=== PATIENT | female | born 1955 | race Caucasian/White ===

== ENCOUNTER 2022-05-21 14:38 | Inpatient (IN) ==
--- NOTE | 2022-05-21 16:57 | XRay Report ---
XR chest 1V not portable CLINICAL HISTORY: Dyspnea TECHNIQUE: Single frontal radiograph of the chest was obtained. Comparison: Comparison is made to chest radiograph 01/29/2022 FINDINGS: No lines and tubes are seen. The cardiomediastinal silhouette is normal. The lungs are clear. No evid ence of pleural effusion or pneumothorax. IMPRESSION: No acute abnormalities and in particular no radiographic evidence of pneumonia. ACT 112: Negative or not required by law. Electronically signed by: Nico Denis M.D. 05/21/2022 4:56 PM
[2022-05-21 17:31] LABS: Basophils # (auto) 0.03 K/uL (0-0.2); Basophils % (auto) 0.6 %; Eosinophils # (auto) 0.02 K/uL (0-0.50); Eosinophils % (auto) 0.4 %; Hematocrit (blood only) 39.6 % (37.0-47.0); Hemoglobin 13.1 g/dl (12.0-16.0); Immature Granulocytes # (auto) 0.01 K/uL (0.01-0.20); Immature Granulocytes % (auto) 0.2 %; Lymphocytes # (auto) 1.14 K/uL (1.2-3.4); Lymphocytes % (auto) 22.3 %; Mean Corpuscular Hemoglobin 34.7 pg (25.0-34.0); Mean Corpuscular Hgb Conc 33.1 g/dL (32.0-36.0); Mean Corpuscular Volume 104.8 fL (80.0-100.0); Mean Platelet Volume 10.1 fL (9.4-12.4); Monocytes # (auto) 0.48 K/uL (0.11-0.59); Monocytes % (auto) 9.4 %; Neutrophils # (auto) 3.44 K/uL (1.40-6.50); Neutrophils % (auto) 67.1 %; Platelet Count 225 K/uL (130-400); RDW Standard Deviation 54.7 fL (36.4-46.3); Red Blood Count 3.78 M/uL (4.20-5.40); White Blood Count 5.12 K/ul (4.8-10.8)
[2022-05-21 17:37] LABS: Albumin Globulin Ratio 0.9 (0.9-2); Albumin Level 3.1 gm/dl (3.4-5.0); BUN Creatinine Ratio 20.5 (10-20); Calcium 8.4 mg/dl (8.6-10.3); Creatinine Clr Calc Pharmacy 151.1 ml/min; Est GFR (African American) 125.1 ml/min; Est GFR (Non-African American) 107.9 ml/min; Globulin 3.6 gm/dl (2.5-4.0); Potassium 3.5 mmol/L (3.5-5.1); Total Protein 6.7 gm/dl (6.0-8.3)
[2022-05-21 17:43] LABS: Troponin I High Sensitivity 6.8 pg/ml (0-14)
[2022-05-21 17:52] LABS: Influenza A virus by PCR Negative (Neg); Influenza B virus by PCR Negative (Neg); RSV by PCR Negative (Neg); SARS CoV2 RNA(COVID-19) Ceph NEGATIVE (Negative)
[2022-05-21] MEDS ORDERED: ALBUT/IPRATROP 3MG/0.5MG NEB 3 ML VIAL NEB STA (18:50)
--- NOTE | 2022-05-21 18:59 | Emergency Department Note ---
Impression & Plan Acute bronchitis, Acute respiratory distress, Hypoxia, MONTES (dyspnea on exertion) ED Provider Note NAME: LJ AGUSTIN AGE: 67 SEX: F : 1955 ARRIVES VIA: Walk-In INFORMANT: Patient, ED PROVIDER(S): Parmjit Gao DO CHIEF COMPLAINT: Shortness of breath HPI: The patient is a 67-year-old female who presented to the emergency department for an evaluation of shortness of breath. The patient's noticed ongoing worsening shortness of breath over the course of the last week. She does notice a sore throat as well as difficulty lying flat at night. She denies having any hemoptysis. She denies having any lower extremity swelling but did note some lower extremity cramping. She was scheduled for Dopplers of her legs by her family doctor but has not had a chance to have those test done yet. ROS: See above HPI for pertinent positives & negatives. A total of 10 systems reviewed and were otherwise negative. PAST MEDICAL HISTORY: See Below PAST SURGICAL HISTORY: See Below FAMILY HISTORY: See Below SOCIAL HISTORY: See Below HOME MEDICATIONS: See Below ALLERGIES: See Below VITALS: See Below PHYSICAL EXAMINATION: GENERAL: Patient is awake alert in no acute distress patient is resting comfortably and showing no signs of anxiety EYES: The conjunctivae are clear. The pupils are round and reactive. EARS, NOSE, MOUTH AND THROAT: The nose is without any evidence of any deformity. NECK: The neck is nontender and supple. RESPIRATORY: Diminished breath sounds are noted throughout. Scattered wheezing was noted. There is mild tachypnea as well as conversational dyspnea appreciated. CARDIOVASCULAR: Tachycardic rate with regular rhythm was noted. There is no definite murmur. GASTROINTESTINAL: The abdomen is soft. Abdomen is nontender. MUSCULOSKELETAL/EXTREMITIES: There is no evidence of gross deformity full range of motion is noted in the hips and shoulders. SKIN: There is no obvious evidence of any rash. There are no petechiae, pallor or cyanosis noted. NEUROLOGIC: Patient is awake alert and oriented x3 MEDICAL DECISION MAKING: The patient is a 67-year-old female who presented to the emergency department for an evaluation of difficulty breathing. The patient does have a history of underlying lung diseases as well as scleroderma. The patient presented with shortness of breath. The patient's symptoms have been ongoing for at least the last 24 hours. She also describes some orthopnea but physical exam and radiographic studies do not appear to be consistent with pulmonary edema rather she has had diminished breath sounds as well as wheezing. She was treated with bronchodilators in the emergency department. Steroids were avoided because of the patient's previous past medical history. The patient was also treated with IV antibiotics in the emergency department. Her overall condition does appear to have some degree of hypoxia especially with exertion as well as tachycardia. Because of these findings she also had a CT of the chest obtained. The patient still has significant symptoms especially with exertion. For this reason I discussed her condition with the on-call [facility] hospitalist. I do feel the patient may benefit from inpatient management. Triage Nursing notes reviewed. Prior medical records reviewed Vital Signs: reviewed and remarkable for borderline hypoxia as well as tachycardia. Differential diagnosis: Reactive airway disease, pneumonia, pneumothorax, COPD, CHF, infections, cardiac ischemia, pulmonary embolism, musculoskeletal, gastrointestinal, as well as other pathologies. ER treatment provided: See below Diagnostics interpreted by me: ECG: EKG was obtained in the emergency department. My interpretation is sinus tachycardia at 109 bpm. There is no ectopy. Nonspecific ST segment abnormalities were noted. Inferior Q waves were noted. Low voltage was noted throughout. This was compared to a tracing from February 23, 2019. No changes were noted. Cardiac Monitoring: An order was placed for continuous cardiac monitoring. The monitor shows a rate of 107 bpm with sinus rhythm. Laboratory studies: As stated above and show below. Imaging studies: See below. Radiographic imaging was reviewed by myself Consultation(s): I discussed this case with Dr. Gaona [facility] COURSE: Procedures: none Critical Care: I have personally spent greater than 35 minutes of critical care time in the direct management of this patient. This includes bedside care, interpretation of diagnostic studies, and testing, discussion with consultants, patient, and family members, and other required patient management activities. This 35 minutes is in excess of all separately billable procedures. Past Med/Surg History Medical History Asthma inhalers daily/prn Atrial fibrillation on xarelto follows with Dr. Bustamante Chronic back pain Chronic diarrhea Gastroparesis Hypertension On anticoagulant therapy xarelto daily Osteoarthritis Pulmonary fibrosis Raynaud's syndrome Scleroderma Surgical History History of benign breast biopsy History of bilateral cataract extraction History of cardiac radiofrequency ablation (~10/2020) @ [facility] [place] History of cholecystectomy History of colonoscopy History of dilatation and curettage History of esophagogastroduodenoscopy (EGD) History of gastric bypass [id number]-en-y History of hand surgery finger surgery History of hernia repair History of surgery Mutiple GI procedures for blocked bowel. History of tooth extraction full upper History of total right knee replacement (TKR) Status post fine needle biopsy on thyroid--all benign Family History Father Hearing loss Brother Hearing loss Other Cancer Heart disease Hypertension No family history of adverse response to anesthesia No family history of bleeding disorder Stroke Social History Smoking Status: Never smoker Second Hand Exposure: No; Hx Alcohol Use: No Hx Substance Use: No Preferred Language: Danish Communication Ability: Effective Binder Lockstitch Required: No Beliefs That Will Affect Care: None and Bahai Bahai Beliefs: Buddhist marital status: Single Current Living Situation: Alone current occupational status: retired Feels Safe at Home: Yes Diet Comment: gastroparesis caffeine: Yes Assistive Devices: Cane, Denture - Upper and Glasses Allergies Allergies Allergy/AdvReac Type Severity Reaction Status Date / Time simvastatin [From Zocor] Allergy Intermediate "made me Verified 05/21/22 21:14 pass out" ibuprofen Allergy Mild stomach Verified 05/21/22 21:14 pain naproxen [From Aleve] Allergy Mild STOMACH Verified 05/21/22 21:14 PAIN oxycodone [From Percocet] Allergy Mild stomach Verified 05/21/22 21:14 pain oyster extract AdvReac Gastrointestinal Verified 05/21/22 21:15 Upset scallops AdvReac Gastrointestinal Verified 05/21/22 21:15 Upset Home Meds Home Medications Medication Instructions Recorded Confirmed hydroxychloroquine 200 mg tablet 400 mg PO QPM 02/23/19 05/21/22 rivaroxaban 20 mg tablet (Xarelto) 20 mg PO QPM 02/23/19 05/21/22 vwaoo-d-ohwhlxiycaltb 150 unit 1 tab PO 6XD PRN Gastrointestinal 05/08/19 03/29/22 tablet (Beano) Spasms Or Cramping lactase 3,000 unit tablet 3,000 units PO QID PRN Abdominal 05/08/19 05/21/22 Discomfort multivitamin 1 tab PO QAM 05/08/19 05/21/22 metoprolol succinate 100 mg 100 mg PO QPM 04/25/20 05/21/22 tablet,extended release 24 hr hydrochlorothiazide 12.5 mg tablet 6.25 mg PO QAM 10/28/20 05/21/22 Saccharomyces boulardii 250 mg 250 mg PO QAM 04/28/21 05/21/22 capsule (Digest Probiotic (S.boulardii)) calcium carbonate 500 mg calcium 500 mg PO QAM 04/28/21 05/21/22 (1,250 mg) tablet cetirizine 10 mg capsule (Zyrtec) 10 mg PO QAM 04/28/21 05/21/22 yrenncdz-pfr-LH 200 mcg-vit K 15 1 tab PO QPM 04/28/21 05/21/22 mcg-lycope 150 xwb-ojhgan-fhlx tablet (Ocuvite Eye Plus Multi) omega 8-uwi-tbq-fish oil 1,000 mg 1 cap PO QAM 04/28/21 05/21/22 (120 mg-180 mg) capsule (Fish Oil) omeprazole 40 mg capsule,delayed 40 mg PO QAM 04/28/21 05/21/22 release vitamin B complex-folic acid 50 1 tab PO QPM 04/28/21 05/21/22 mcg tablet mycophenolate mofetil 250 mg 500 mg PO BID 02/15/22 05/21/22 capsule spironolactone 25 mg tablet 25 mg PO DAILY 03/29/22 05/21/22 Previous Rx's Medication Instructions Recorded yezzes-djlxosxd-zwfpgbq 5.82063 cap PO TID #30 caps 11/14/18 6,000-19,000-30,000 unit capsule,delayed rel (Creon) tramadol 37.5 mg-acetaminophen 325 1 tab PO QID PRN pain #30 tabs 11/14/18 mg tablet triamcinolone acetonide 55 mcg 2 sprays intranasal DAILY #33.8 mL 11/14/18 nasal spray aerosol (Nasacort) albuterol sulfate 90 mcg/actuation 1 puff inhalation Q6H PRN 10/28/20 aerosol inhaler (ProAir HFA) shortness of breath or wheezing #8 grams fluticasone propionate 115 2 puff inhalation BID #12 grams 10/28/20 mcg-salmeterol 21 mcg/actuation HFA inhaler (Advair HFA) nintedanib 150 mg capsule (Ofev) 150 mg PO Q12H #180 caps 11/17/21 Results & Data (ED) Vital Signs Vital Signs - 24 hr 05/21/22 15:09 05/21/22 18:37 05/21/22 18:38 Temperature 37.1 C Temperature Source Skin Pulse Rate 106 H 128 H 126 H Pulse Rate [Apical] Respiratory Rate 20 18 Respiratory Effort / Characteristics Non-Labored Spontaneous Respiratory Depth Normal Respiratory Pattern Regular Blood Pressure 145/77 H Blood Pressure [Left Arm] Blood Pressure Mean 99 Blood Pressure Mean [Left Arm] Blood Pressure Position [Left Arm] Pulse Oximetry 92 93 Oxygen Delivery Method Room Air Room Air Oxygen Flow Rate Sepsis Recent Fever Within 48 Hours No Sepsis New/Unexplained Change in Mental Status N/A Sepsis Action Taken by Nursing No Action Required 05/21/22 18:38 05/21/22 19:52 05/21/22 22:05 Temperature Temperature Source Pulse Rate Pulse Rate [Apical] 127 H 107 H Respiratory Rate 18 18 Respiratory Effort / Characteristics Respiratory Depth Respiratory Pattern Blood Pressure Blood Pressure [Left Arm] 145/90 H 130/77 Blood Pressure Mean Blood Pressure Mean [Left Arm] 108 94 Blood Pressure Position [Left Arm] Sitting Pulse Oximetry 92 99 97 Oxygen Delivery Method Room Air Nasal Cannula Nasal Cannula Oxygen Flow Rate 2 2 Sepsis Recent Fever Within 48 Hours Sepsis New/Unexplained Change in Mental Status Sepsis Action Taken by Skilled Nursing Medications Current Medication List: was personally reviewed by me Laboratory Data Attestation: I reviewed the patient's lab results. 05/21/22 17:06 05/21/22 17:06 Lab Results 05/21/22 05/21/22 05/21/22 Range/Units 17:06 17:06 17:06 WBC 5.12 (4.8-10.8) K/ul RBC 3.78 L (4.20-5.40) M/uL Hgb 13.1 (12.0-16.0) g/dl Hct 39.6 (37.0-47.0) % MCV 104.8 H (80.0-100.0) fL MCH 34.7 H (25.0-34.0) pg MCHC 33.1 (32.0-36.0) g/dL RDW Std Deviation 54.7 H (36.4-46.3) fL RDW Coeff of Lorenzo 14.0 (11.5-14.5) % Plt Count 225 (130-400) K/uL MPV 10.1 (9.4-12.4) fL Immature Gran % (Auto) 0.2 % Neut % (Auto) 67.1 % Lymph % (Auto) 22.3 % Brooke % (Auto) 9.4 % Eos % (Auto) 0.4 % Baso % (Auto) 0.6 % Neut # (Auto) 3.44 (1.40-6.50) K/uL Lymph # (Auto) 1.14 L (1.2-3.4) K/uL Brooke # (Auto) 0.48 (0.11-0.59) K/uL Eos # (Auto) 0.02 (0-0.50) K/uL Baso # (Auto) 0.03 (0-0.2) K/uL Immature Gran # (Auto) 0.01 (0.01-0.20) K/uL Sodium 137 (136-145) mmol/L Potassium 3.5 (3.5-5.1) mmol/L Chloride 97 L (98-107) mmol/L Carbon Dioxide 35 H (21-32) mmol/L Anion Gap 5 (3-11) BUN 8 (6-23) mg/dl Creatinine 0.39 L (0.6-1.2) mg/dl Est Cr Clr Drug Dosing 151.1 ml/min Est GFR ( Amer) 125.1 ml/min Est GFR (Non-Af Amer) 107.9 ml/min BUN/Creatinine Ratio 20.5 H (10-20) Glucose 103 H (70-99(Fasting)) mg/dl Calcium 8.4 L (8.6-10.3) mg/dl Total Bilirubin 1.0 (0.2-1.0) mg/dl AST 59 H (13-39) U/L ALT 31 (7-52) U/L Alkaline Phosphatase 115 H (34-104) U/L Troponin I High Sens 6.8 (0-14) pg/ml Total Protein 6.7 (6.0-8.3) gm/dl Albumin 3.1 L (3.4-5.0) gm/dl Globulin 3.6 (2.5-4.0) gm/dl Albumin/Globulin Ratio 0.9 (0.9-2) Urine Color Urine Appearance (Clear) Urine pH (4.5-7.5) Ur Specific Leonard (1.000-1.030) Urine Protein (Negative) Urine Glucose (UA) (Negative) Urine Ketones (Negative) Urine Blood (Negative) Urine Nitrite (Negative) Urine Bilirubin (Negative) Urine Urobilinogen (Negative) Ur Leukocyte Esterase (Negative) SARS-CoV-2 (PCR) NEGATIVE (Negative) Influenza Type A (PCR) Negative (Neg) Influenza Type B (PCR) Negative (Neg) RSV (RT-PCR) Negative (Neg) 05/21/22 Range/Units 21:38 WBC (4.8-10.8) K/ul RBC (4.20-5.40) M/uL Hgb (12.0-16.0) g/dl Hct (37.0-47.0) % MCV (80.0-100.0) fL MCH (25.0-34.0) pg MCHC (32.0-36.0) g/dL RDW Std Deviation (36.4-46.3) fL RDW Coeff of Lorenzo (11.5-14.5) % Plt Count (130-400) K/uL MPV (9.4-12.4) fL Immature Gran % (Auto) % Neut % (Auto) % Lymph % (Auto) % Brooke % (Auto) % Eos % (Auto) % Baso % (Auto) % Neut # (Auto) (1.40-6.50) K/uL Lymph # (Auto) (1.2-3.4) K/uL Brooke # (Auto) (0.11-0.59) K/uL Eos # (Auto) (0-0.50) K/uL Baso # (Auto) (0-0.2) K/uL Immature Gran # (Auto) (0.01-0.20) K/uL Sodium (136-145) mmol/L Potassium (3.5-5.1) mmol/L Chloride (98-107) mmol/L Carbon Dioxide (21-32) mmol/L Anion Gap (3-11) BUN (6-23) mg/dl Creatinine (0.6-1.2) mg/dl Est Cr Clr Drug Dosing ml/min Est GFR ( Amer) ml/min Est GFR (Non-Af Amer) ml/min BUN/Creatinine Ratio (10-20) Glucose (70-99(Fasting)) mg/dl Calcium (8.6-10.3) mg/dl Total Bilirubin (0.2-1.0) mg/dl AST (13-39) U/L ALT (7-52) U/L Alkaline Phosphatase (34-104) U/L Troponin I High Sens (0-14) pg/ml Total Protein (6.0-8.3) gm/dl Albumin (3.4-5.0) gm/dl Globulin (2.5-4.0) gm/dl Albumin/Globulin Ratio (0.9-2) Urine Color Yellow Urine Appearance Clear (Clear) Urine pH 6.0 (4.5-7.5) Ur Specific Leonard > 1.045 H (1.000-1.030) Urine Protein Negative (Negative) Urine Glucose (UA) Negative (Negative) Urine Ketones Negative (Negative) Urine Blood Negative (Negative) Urine Nitrite Negative (Negative) Urine Bilirubin Negative (Negative) Urine Urobilinogen Negative (Negative) Ur Leukocyte Esterase Negative (Negative) SARS-CoV-2 (PCR) (Negative) Influenza Type A (PCR) (Neg) Influenza Type B (PCR) (Neg) RSV (RT-PCR) (Neg) Administered Medications Discontinued Medications Albuterol (Albut/Ipratrop 3mg/0.5mg Neb 3 Ml Vial) 3 ml NEB NOW STA; Protocol Stop: 05/21/22 18:51 Last Admin: 05/21/22 18:54 Dose: 3 ml Documented By: BYRON Ceftriaxone Sodium (Rocephin) 2,000 mg in 70 mls @ 140 mls/hr IV NOW STA Stop: 05/21/22 21:10 Last Infusion: 05/21/22 22:13 Dose: 0 mls/hr Documented By: Admin: 05/21/22 21:33 Dose: 140 mls/hr Documented By: BYRON Sodium Chloride (Nss 1000ml) 1,000 mls @ 999 mls/hr IV .Q1H1M ONE Stop: 05/21/22 21:43 Last Admin: 05/21/22 21:48 Dose: 999 mls/hr Documented By: BYRON Ioversol (Optiray 320 500ml) 122 ml IV ONCE ONE Stop: 05/21/22 19:32 Last Admin: 05/21/22 19:32 Dose: 122 ml Documented By: SAMUEL Imaging Data Attestation: I personally reviewed and interpreted this imaging study as follows: My Impression: 1 view chest x-ray was obtained in the emergency department. My interpretation is no free air, no definite infiltrate, final report below. Radiologist's Impression: Chest X-Ray 05/21/22 15:12 XR chest 1V not portable CLINICAL HISTORY: Dyspnea TECHNIQUE: Single frontal radiograph of the chest was obtained. Comparison: Comparison is made to chest radiograph 01/29/2022 FINDINGS: No lines and tubes are seen. The cardiomediastinal silhouette is normal. The lungs are clear. No evidence of pleural effusion or pneumothorax. IMPRESSION: No acute abnormalities and in particular no radiographic evidence of pneumonia. ACT 112: Negative or not required by law. Electronically signed by: Nico Denis M.D. 05/21/2022 4:56 PM Chest CTA 05/21/22 18:49 Exam(s): CTA CHEST EXAM: CT Angiography Chest With Intravenous Contrast CLINICAL HISTORY: Reason for exam: PE. TECHNIQUE: Axial computed tomographic angiography images of the chest with intravenous contrast. CTDI is 16.33 mGy and DLP is 438.68 mGy-cm. Automated exposure control was utilized for the study. A dose lowering technique was utilized adhering to the principles of ALARA. MIP reconstructed images were created and reviewed. COMPARISON: CT chest on 03/03/2022 FINDINGS: Pulmonary arteries: Unremarkable. No definite pulmonary embolus identified. Aorta: Atherosclerotic changes of the aorta. No aortic aneurysm or dissection. Lungs: Mildly prominent bronchial orr may represent bronchitis. Nonspecific small nodules in the right middle lobe, measuring up to 6 mm. Infectious/inflammatory process is not excluded. These are new compared to prior exam and could be further evaluated on follow-up exam in 12 months if patient has low risk or in 6-12 months if patient is at high risk. Mild chronic interstitial lung disease. Scattered atelectasis. No other focal consolidation. Pleural space: Unremarkable. No significant effusion. No pneumothorax. Heart: Mild cardiomegaly. No significant pericardial effusion. No evidence of RV dysfunction. Mediastinum: Nonspecific mildly prominent mediastinal and hilar lymph nodes. Bones/joints: No acute fracture. No dislocation. Degenerative changes of the spine. Soft tissues: Unremarkable. Lymph nodes: Unremarkable. No enlarged lymph nodes. Liver: Prominent hepatic steatosis. Other: Hypodense nodule with calcification in the right thyroid lobe which could be further evaluated with ultrasound if clinically indicated. IMPRESSION: 1. No definite pulmonary embolus identified. 2. Mildly prominent bronchial orr may represent bronchitis. 3. Nonspecific small nodules in the right middle lobe, measuring up to 6 mm. Infectious/inflammatory process is not excluded. These are new compared to prior exam and could be further evaluated on follow-up exam in 12 months if patient has low risk or in 6-12 months if patient is at high risk. 4. Atherosclerotic changes of the aorta. No aortic aneurysm or dissection. 5. Prominent hepatic steatosis. 6. Scattered atelectasis and mild chronic interstitial lung disease. No other focal consolidation. Electronically signed by: Macho Ge M.D. 05/21/22 19:57 PM Discharge Plan Visit Data Chief Complaint: Shortness of Breath/Dyspnea Stated Complaint: COUGH,SOB,BAD LUNG ED Provider: Parmjit Gao Discharge Problem: Acute bronchitis, Acute respiratory distress, Hypoxia, MONTES (dyspnea on exertion) Patient Disposition: Being Evaluated by Hospitalist Forms Stand Alone Forms: [facility] Prescriptions Prescriptions: No Action mycophenolate mofetil 250 mg capsule 500 mg PO BID Ofev 150 mg capsule 150 mg PO Q12H Qty: 180 3RF lactase 3,000 unit tablet 3,000 units PO QID PRN (Reason: Abdominal Discomfort) Beano 150 unit tablet 1 tab PO 6XD PRN (Reason: Gastrointestinal Spasms Or Cramping) multivitamin Tablet 1 tab PO QAM hydrochlorothiazide 12.5 mg tablet 6.25 mg PO QAM albuterol sulfate [ProAir HFA] 90 mcg/actuation HFA aerosol inhaler 1 puff INH Q6H PRN (Reason: shortness of breath or wheezing) Qty: 8 0RF Advair HFA 115-21 mcg/actuation HFA aerosol inhaler 2 puff INH BID Qty: 12 3RF Rx Instructions: 90-day supply ( 3 inhalers ) with 3 refills triamcinolone acetonide [Nasacort] 55 mcg aerosol,spray 2 sprays INTNAS DAILY Qty: 33.8 0RF Rx Instructions: administer into each nostril tramadol-acetaminophen 37.5-325 mg tablet 1 tab PO QID PRN (Reason: pain) Qty: 30 0RF Creon 6,000-19,000 -30,000 unit capsule,delayed release(DR/EC) 5.59850 cap PO TID Qty: 30 3RF Rx Instructions: do not exceed 10,000 unit/kg lipase per 24 hrs spironolactone 25 mg tablet 25 mg PO DAILY Xarelto 20 mg Tablet 20 mg PO QPM hydroxychloroquine 200 mg tablet 400 mg PO QPM metoprolol succinate 100 mg tablet extended release 24 hr 100 mg PO QPM vitamin B complex-folic acid 50 mcg Tablet 1 tab PO QPM omeprazole 40 mg capsule,delayed release(DR/EC) 40 mg PO QAM calcium carbonate 500 mg calcium (1,250 mg) tablet 500 mg PO QAM Saccharomyces boulardii [Digest Probiotic (S.boulardii)] 250 mg capsule 250 mg PO QAM Rx Instructions: swallow whole omega 0-jen-qgb-fish oil [Fish Oil] 1,000 mg (120 mg-180 mg) capsule 1 cap PO QAM Zyrtec 10 mg capsule 10 mg PO QAM Ocuvite Eye Plus Multi 200-15-150 mcg tablet 1 tab PO QPM Rx Instructions: administer with a meal and a large glass of water Referrals Referrals: Marcia Clemente MD [Primary Care Provider] -
[2022-05-21] MEDS ORDERED: OPTIRAY 320 500ml IV ONE (19:31)
--- NOTE | 2022-05-21 19:58 | CT Scan Report ---
Exam(s): CTA CHEST EXAM: CT Angiography Chest With Intravenous Contrast CLINICAL HISTORY: Reason for exam: PE. TECHNIQUE: Axial computed tomographic angiography images of the chest with intravenous contrast. CTDI is 16.33 mGy and DLP is 438.68 mGy-cm. Automated exposure control was utilized for the study. A dose lowering technique was utilized adhering to the principles of ALARA. MIP reconstructed images were created and reviewed. COMPARISON: CT chest on 03/03/2022 FINDINGS: Pulmonary arteries: Unremarkable. No definite pulmonary embolus identified. Aorta: Atherosclerotic changes of the aorta. No aortic aneurysm or dissection. Lungs: Mildly prominent bronchial orr may represent bronchitis. Nonspecific small nodules in the right middle lobe, measuring up to 6 mm. Infectious/inflammatory process is not excluded. These are new compared to prior exam and could be further evaluated on follow-up exam in 12 months if patient has low risk or in 6-12 months if patient is at high risk. Mild chronic interstitial lung disease. Scattered atelectasis. No other focal consolidation. Pleural space: Unremarkable. No significant effusion. No pneumothorax. Heart: Mild cardiomegaly. No significant pericardial effusion. No evidence of RV dysfunction. Mediastinum: Nonspecific mildly prominent mediastinal and hilar lymph nodes. Bones/joints: No acute fracture. No dislocation. Degenerative changes of the spine. Soft tissues: Unremarkable. Lymph nodes: Unremarkable. No enlarged lymph nodes. Liver: Prominent hepatic steatosis. Other: Hypodense nodule with calcification in the right thyroid lobe which could be further evaluated with ultrasound if clinically indicated. IMPRESSION: 1. No definite pulmonary embolus identified. 2. Mildly prominent bronchial orr may represent bronchitis. 3. Nonspecific small nodules in the right middle lobe, measuring up to 6 mm. Infectious/inflammatory process is not excluded. These are new compared to prior exam and could be further evaluated on follow-up exam in 12 months if patient has low risk or in 6-12 months if patient is at high risk. 4. Atherosclerotic changes of the aorta. No aortic aneurysm or dissection. 5. Prominent hepatic steatosis. 6. Scattered atelectasis and mild chronic interstitial lung disease. No other focal consolidation. Electronically signed by: Macho Ge M.D. 05/21/22 19:57 PM
[2022-05-21] MEDS ORDERED: cefTRIAXone SODIUM 2,000 MG/70 ML BAG IV STA (20:41)
[2022-05-21] MEDS ORDERED: SODIUM CHLORIDE 0.9% 1000ML 1,000 ML IV ONE (20:43)
--- NOTE | 2022-05-21 21:31 | History & Physical Report ---
Date of Service May 21, 2022 Assessment & Plan (1) Acute respiratory distress: Plan: 67-year-old woman with history of scleroderma, pulmonary fibrosis, asthma, GERD, atrial fibrillation (on Xarelto) who presents to the hospital with worsening acute shortness of breath. Now admitted to the hospital for management of acute respiratory distress, secondary to asthma flare. Acute respiratory distress -Afebrile, hemodynamically stable on admission. No evidence of pneumonia/pneumonitis, other acute process on CXR, CTA chest. -S/p IV ceftriaxone 2 g, DuoNeb treatment in ED. -Documented mixed restrictive/obstructive lung disease pattern secondary to pulmonary fibrosis, in turn 2/[address] Miller at [facility]. -Improved following nebulizer treatment in the emergency room. * Admit to MedSur telemetry unit * IV Solu-Medrol 125 mg x 1 * DuoNeb every 4 hours x24 hours * Prednisone 40 mg p.o. x4 days. (IV, oral steroids x5 days total) * Guaifenesin 1200 mg p.o. every 12 hours * Continue Home maintenance asthma regimen: Advair inhaler daily, as needed ProAir inhaler Pulmonary fibrosis -Sees Dr. Miller at [facility] outpatient. Also follows [facility] rheumatology, GI. -Review of last outpatient note reveals pulm fibrosis managed medically by appliquer (mycophenolate, nintedanib). -Patient was previously on amiodarone, which was discontinued due to concern for worsening pulmonary fibrosis. -Patient is also scheduled to be evaluated for transplant at [facility] * Mycophenolate 500 mg p.o. twice daily * Nintedanib 150 mg p.o. every 12 hours Scleroderma -Follows [facility] GI and [facility] rheumatology for GERD, dysphagia, chronic diarrhea, esophagitis, esophageal strictures, and gastroparesis. * Home lactase 3000 units 4 times daily as needed * Saccharomyces Boulardii to 50 mg p.o. every morning * Creon * Beano * Hydroxychloroquine 400 mg * Vitamin B complex GERD -Takes omeprazole 40 mg at home. * P.o. pantoprazole 40 mg Hypertension -Takes HCTZ 6.25 mg daily, spironolactone 25 mg daily * Continue HCTZ, spironolactone Lumbar degenerative disc disease * Continue home regimen tramadol-acetaminophen 37.5-325 mg p.o. 4 times daily as needed Atrial fibrillation -Chronically on metoprolol succinate 100 mg daily, Xarelto 20 mg for anticoag ulation. * Continue home metoprolol succinate, Xarelto Code: Full code Dispo: Med-Surg telemetry FEN/GI: Heart healthy DVT Prophylaxis: Xarelto 20 mg daily PT/OT: No Consults: None (2) Scleroderma: (3) Pulmonary fibrosis: (4) History of atrial fibrillation: (5) GERD (gastroesophageal reflux disease): (6) Lumbar degenerative disc disease: History of Present Illness Primary Care Provider: Marcia Clemente MD [place] 67-year-old woman past medical history of AF (Xarelto, follows with Dr. Macias), scleroderma (+ Raynaud's, pulm fibrosis, gastroparesis) who presents for shortness of breath x approximately 1 week. She also reports sore throat and "difficulty lying flat at night." She denies hemoptysis, LE swelling. ROS + LE cramps, chest congestion, headache, nausea. In the ED, labs were notable for a normal WBC, hemoglobin level within normal limits, albeit with macrocytosis, AST 59, alk phos 115, and a negative respiratory viral panel. CXR read showed no evidence of pleural effusion or pneumothorax. Chest CTA showed evidence of prominent hepatic steatosis. She received a dose of an albuterol nebulizer, IV ceftriaxone 2 g, and an NS bolus x1 L. On admission, she reports mild improvement in her chest congestion, which she attributes to the nebulizer treatment she received. She has no new symptoms to report. Allergies Allergy/AdvReac Type Severity Reaction Status Date / Time simvastatin [From Zocor] Allergy Intermediate "made me Verified 05/21/22 21:14 pass out" ibuprofen Allergy Mild stomach Verified 05/21/22 21:14 pain naproxen [From Aleve] Allergy Mild STOMACH Verified 05/21/22 21:14 PAIN oxycodone [From Percocet] Allergy Mild stomach Verified 05/21/22 21:14 pain oyster extract AdvReac Gastrointestinal Verified 05/21/22 21:15 Upset scallops AdvReac Gastrointestinal Verified 05/21/22 21:15 Upset Home Medications Medication Instructions Recorded Confirmed Type xyxgns-uderbwjl-ejemmwe 5.60437 cap PO TID #30 caps 11/14/18 05/21/22 Rx 6,000-19,000-30,000 unit capsule,delayed rel (Creon) tramadol 37.5 mg-acetaminophen 325 1 tab PO QID PRN pain #30 tabs 11/14/18 05/21/22 Rx mg tablet triamcinolone acetonide 55 mcg 2 sprays intranasal DAILY #33.8 mL 11/14/18 05/21/22 Rx nasal spray aerosol (Nasacort) hydroxychloroquine 200 mg tablet 400 mg PO QPM 02/23/19 05/21/22 History rivaroxaban 20 mg tablet (Xarelto) 20 mg PO QPM 02/23/19 05/21/22 History coeop-z-ngesvpnotxpnx 150 unit 1 tab PO 6XD PRN Gastrointestinal 05/08/19 03/29/22 History tablet (Beano) Spasms Or Cramping lactase 3,000 unit tablet 3,000 units PO QID PRN Abdominal 05/08/19 05/21/22 History Discomfort multivitamin 1 tab PO QAM 05/08/19 05/21/22 History metoprolol succinate 100 mg 100 mg PO QPM 04/25/20 05/21/22 History tablet,extended release 24 hr albuterol sulfate 90 mcg/actuation 1 puff inhalation Q6H PRN 10/28/20 05/21/22 Rx aerosol inhaler (ProAir HFA) shortness of breath or wheezing #8 grams fluticasone propionate 115 2 puff inhalation BID #12 grams 10/28/20 05/21/22 Rx mcg-salmeterol 21 mcg/actuation HFA inhaler (Advair HFA) hydrochlorothiazide 12.5 mg tablet 6.25 mg PO QAM 10/28/20 05/21/22 History Saccharomyces boulardii 250 mg 250 mg PO QAM 04/28/21 05/21/22 History capsule (Digest Probiotic (S.boulardii)) calcium carbonate 500 mg calcium 500 mg PO QAM 04/28/21 05/21/22 History (1,250 mg) tablet cetirizine 10 mg capsule (Zyrtec) 10 mg PO QAM 04/28/21 05/21/22 History aknqbbvt-aiv-OU 200 mcg-vit K 15 1 tab PO QPM 04/28/21 05/21/22 History mcg-lycope 150 jdv-rgpzjy-wpej tablet (Ocuvite Eye Plus Multi) omega 1-lcx-efp-fish oil 1,000 mg 1 cap PO QAM 04/28/21 05/21/22 History (120 mg-180 mg) capsule (Fish Oil) omeprazole 40 mg capsule,delayed 40 mg PO QAM 04/28/21 05/21/22 History release vitamin B complex-folic acid 50 1 tab PO QPM 04/28/21 05/21/22 History mcg tablet nintedanib 150 mg capsule (Ofev) 150 mg PO Q12H #180 caps 11/17/21 05/21/22 Rx mycophenolate mofetil 250 mg 500 mg PO BID 02/15/22 05/21/22 History capsule spironolactone 25 mg tablet 25 mg PO DAILY 03/29/22 05/21/22 History Past Med/Surg History Medical History (Updated 05/22/22 @ 04:34 by Joelle Meraz MD) Asthma inhalers daily/prn Atrial fibrillation on xarelto follows with Dr. Bustamante Chronic back pain Chronic diarrhea Gastroparesis Hypertension On anticoagulant therapy xarelto daily Osteoarthritis Pulmonary fibrosis Raynaud's syndrome Scleroderma Surgical History History of benign breast biopsy History of bilateral cataract extraction History of cardiac radiofrequency ablation (~10/2020) @ [facility] History of cholecystectomy History of colonoscopy History of dilatation and curettage History of esophagogastroduodenoscopy (EGD) History of gastric bypass raymundo-en-y History of hand surgery finger surgery History of hernia repair History of surgery Mutiple GI procedures for blocked bowel. 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 HEENT: Normocephalic, atraumatic. EOM intact. Good conjugate gaze. Nares patent. Moist mucosal membranes. Neck: Supple. No lymphadenopathy. Normal ROM. CV: Tachycardic. Regular rhythm. Normal S1 and S2. No murmurs gallops or rubs. Respiratory: Normal respiratory effort. Inspiratory and expiratory wheezes heard diffusely on auscultation. No crackles or rhonchi heard. Abdomen: Soft, nondistended abdomen. No bruits heard on auscultation. Mild diffuse tenderness to palpation without guarding or rebound. Extremities: Capillary refill <2 sec. 2+ dp equal bilaterally. Mild pedal edema Neuro: Alert and oriented x3. Skin: Clean, dry, and intact. No rashes, bruises, or erythema. Results & Data Results & Data Vital Signs (Past 12 Hours) Vital Signs Temp Pulse Pulse Resp BP BP Pulse Ox 05/21/22 19:52 99 05/21/22 18:38 127 H 18 145/90 H 92 05/21/22 18:38 126 H 18 93 05/21/22 18:37 128 H 05/21/22 15:09 37.1 C 106 H 20 145/77 H 92 O2 Del Method O2 Flow Rate 05/21/22 19:52 Nasal Cannula 2 05/21/22 18:38 Room Air 05/21/22 18:38 Room Air 05/21/22 18:37 05/21/22 15:09 Room Air Supervising Physician Co-Signing Physician Notes Patient seen and examined, chart reviewed, case discussed with Dr. Meraz and I agree with the assessment and plan as above. In brief, patient is a 67yo female with pulmonary fibrosis secondary to systemic scleroderma currently undergoing workup for lung transplant. Patient presents with worsening shortness of breath, cough and wheeze Patient coughing, feeling short of breath during my encounter. Speaking in complete sentences +S1/S2, regular Lungs with diffuse inspiratory and expiratory wheezing, no rales on 2L O2 by NC Abdomen soft, NT/ND Ext warm, well perfused Labs and images reviewed Assessment/Plan 67yo female with pulmonary fibrosis secondary to systemic scleroderma, possible asthma presenting with one week of progressive shortness of breath Patient notes improvement with nebulizers Possible asthma exacerbation, URI, -IV steroid Solumedrol 125mg given. Continue with PO Prednisone for now -Nebulizers -Consider pulmonary consultation Resident Activity Tracking Resident Involvement: Resident Care Provided Care Provided: Adult Hospital Medicine
[2022-05-21 22:03] LABS: Appearance Urine Clear (Clear); Bilirubin Urine Negative (Negative); Blood Urine Negative (Negative); Color Urine Yellow; Glucose Urine UA Negative (Negative); Ketones Urine Negative (Negative); Leukocyte Esterase Urine Negative (Negative); Nitrite Urine Negative (Negative); Protein Urine Negative (Negative); Specific Gravity Urine > 1.045 (1.000-1.030); Urobilinogen Urine Negative (Negative)
[2022-05-21] MEDS ORDERED: METOPROLOL SUCC 50MG EXT REL TAB PO STA (22:03)
[2022-05-21] MEDS ORDERED: methylPREDNISolone 125 MG/2 ML VIAL IV STA (22:17)
[2022-05-21] MEDS ORDERED: NON-FORMULARY MEDICATION (Nintedanib [Ofev] 150 mg capsule) PO SCH (22:35)
[2022-05-21] MEDS ORDERED: ALBUTEROL HFA 8 GM INHALER INH PRN (22:35)
[2022-05-21 22:51] LABS: C Reactive Protein 0.63 mg/dl (0-0.5); Magnesium 1.7 mg/dl (1.7-2.4); Phosphorus 3.7 mg/dl (2.5-4.9)
[2022-05-21] MEDS: ALBUT/IPRATROP 3MG/0.5MG NEB 3 ML VIAL NEB SCH (23:02)
[2022-05-21] MEDS ORDERED: guaiFENesin/DEXTROM SYRUP 100MG/10MG 5ML UDC PO ONE (23:53)
[2022-05-22] MEDS: ALBUT/IPRATROP 3MG/0.5MG NEB 3 ML VIAL NEB SCH ×6 (02:13→22:27)
[2022-05-22 06:05] LABS: Albumin Globulin Ratio 0.9 (0.9-2); Albumin Level 2.4 gm/dl (3.4-5.0); BUN Creatinine Ratio 24.1 (10-20); Bilirubin,Total 0.7 mg/dl (0.2-1.0); Calcium 7.5 mg/dl (8.6-10.3); Creatinine Clr Calc Pharmacy 199.6 ml/min; Est GFR (African American) 137.9 ml/min; Globulin 2.6 gm/dl (2.5-4.0); Magnesium 1.6 mg/dl (1.7-2.4); Phosphorus 4.2 mg/dl (2.5-4.9); Potassium 2.9 mmol/L (3.5-5.1)
--- NOTE | 2022-05-22 06:20 | Billing Data ---
Date of Service May 21, 2022 Coding Level of Care Code 76166 INT INP/OBS CARE
[2022-05-22] MEDS ORDERED: MAG SULFATE 50% 1GM/2ML VIAL IV STA (06:31)
[2022-05-22 06:36] LABS: Basophils # (auto) 0.02 K/uL (0-0.2); Basophils % (auto) 0.4 %; Hematocrit (blood only) 30.2 % (37.0-47.0); Hemoglobin 10.2 g/dl (12.0-16.0); Immature Granulocytes # (auto) 0.01 K/uL (0.01-0.20); Immature Granulocytes % (auto) 0.2 %; Lymphocytes # (auto) 1.01 K/uL (1.2-3.4); Lymphocytes % (auto) 20.8 %; Mean Corpuscular Hemoglobin 34.3 pg (25.0-34.0); Mean Corpuscular Hgb Conc 33.8 g/dL (32.0-36.0); Mean Corpuscular Volume 101.7 fL (80.0-100.0); Mean Platelet Volume 10.2 fL (9.4-12.4); Monocytes # (auto) 0.51 K/uL (0.11-0.59); Monocytes % (auto) 10.5 %; Neutrophils # (auto) 3.31 K/uL (1.40-6.50); Neutrophils % (auto) 68.1 %; Platelet Count 189 K/uL (130-400); RDW Coefficient of Variation 14.2 % (11.5-14.5); RDW Standard Deviation 53.4 fL (36.4-46.3); Red Blood Count 2.97 M/uL (4.20-5.40); White Blood Count 4.86 K/ul (4.8-10.8)
[2022-05-22] MEDS: POTASSIUM CHLORIDE CRTAB 20 MEQ TABCR PO SCH ×3 (06:49→20:55)
[2022-05-22] MEDS: MAGNESIUM SULFATE / D5W 1 GM/100 ML BAG IV SCH ×2 (06:49→09:00)
[2022-05-22] MEDS ORDERED: METOPROLOL TARTRATE 50 MG TAB PO STA (08:39)
[2022-05-22] MEDS: guaiFENesin 600 MG TABCR PO SCH ×2 (10:40→20:54)
[2022-05-22] MEDS: PANTOprazole 40 MG TAB PO SCH (10:41)
[2022-05-22] MEDS: OMEGA-3 (PURIFIED FISH OIL) 1 GM CAP PO SCH (10:41)
[2022-05-22] MEDS: CETIRIZINE HCL 10 MG TABLET PO SCH (10:42)
[2022-05-22] MEDS: MULTIVITAMIN TAB PO SCH (10:42)
[2022-05-22] MEDS: CALCIUM CARBONATE 500 MG CHEWABLE TAB PO SCH (10:42)
[2022-05-22] MEDS: PANCREAZE (LIPASE 4,200U) CAP PO SCH ×3 (10:43→16:31)
[2022-05-22] MEDS: LACTASE 3000 UNIT TAB PO PRN (10:44)
[2022-05-22] MEDS: hydroCHLOROthiazide 25 MG TAB PO SCH (10:44)
[2022-05-22] MEDS: SACCHAROMYCES BOULARDII 250 MG CAP PO SCH (10:44)
[2022-05-22] MEDS: SPIRONOLACTONE 25 MG TAB PO SCH (10:44)
[2022-05-22] MEDS: FLUTICASONE/VILANTEROL 200/25MCG 14 PUFFS/INHALER INH SCH (10:46)
[2022-05-22] MEDS: FLUTICASONE PROPIONATE NA SPR 16 GM BTL SCH (10:46)
[2022-05-22] MEDS: MYCOPHENOLATE MOFETIL 250 MG CAP PO SCH ×2 (10:47→20:56)
--- NOTE | 2022-05-22 12:21 | Electrocardiogram Report ---
Test Reason : Blood Pressure : / mmHG Vent. Rate : 109 BPM Atrial Rate : 109 BPM P-R Int : 150 ms QRS Dur : 076 ms QT Int : 332 ms P-R-T Axes : 062 038 056 degrees QTc Int : 447 ms Poor data quality, interpretation may be adversely affected Sinus tachycardia with Premature atrial complexes Possible Inferior infarct (cited on or before 23-FEB-2019) Possible Anterior infarct (cited on or before 23-FEB-2019) Abnormal ECG When compared with ECG of 23-FEB-2019 15:36, Sinus rhythm has replaced Atrial flutter Questionable change in initial forces of Anteroseptal leads T wave inversion no longer evident in Inferior leads Confirmed by Parmjit Roberts ([id number]) on 05/22/2022 12:21:17 PM Referred By: Marcia Clemente Confirmed By:Parmjit Roberts
--- NOTE | 2022-05-22 15:03 | Hospitalist Progress Note ---
Date of Service May 22, 2022 Assessment & Plan (1) Acute respiratory distress: Plan: 67-year-old woman with history of scleroderma, pulmonary fibrosis, asthma, GERD, atrial fibrillation (on Xarelto) who presents to the hospital with worsening acute shortness of breath. Now admitted to the hospital for management of acute respiratory distress, secondary to asthma flare. Acute respiratory distress -Afebrile, hemodynamically stable on admission. No evidence of pneumonia/pneumonitis, other acute process on CXR, CTA chest. -S/p IV ceftriaxone 2 g, DuoNeb treatment in ED. -Documented mixed restrictive/obstructive lung disease pattern secondary to pulmonary fibrosis, in turn 2/[address] Miller at [facility]. -Improved following nebulizer treatment in the emergency room. * Admit to MedSur telemetry unit * IV Solu-Medrol 125 mg x 1 * DuoNeb every 4 hours x24 hours * Prednisone 40 mg p.o. x4 days. (IV, oral steroids x5 days total) * Guaifenesin 1200 mg p.o. every 12 hours * Continue Home maintenance asthma regimen: Advair inhaler daily, as needed ProAir inhaler * Given history of scleroderma and current bronchitis, will treat patient with doxycycline in the AM. * Given her complicated pulmonary history pulmonary fibrosis, will continue to monitor patient. * If patient is on room air in AM, may consider discharge. Pulmonary fibrosis -Sees Dr. Miller at [facility] outpatient. Also follows [facility] rheumatology, GI. -Review of last outpatient note reveals pulm fibrosis managed medically by retail team member (mycophenolate, nintedanib). -Patient was previously on amiodarone, which was discontinued due to concern for worsening pulmonary fibrosis. -Patient is also scheduled to be evaluated for transplant at [facility] * Mycophenolate 500 mg p.o. twice daily * Nintedanib 150 mg p.o. every 12 hours Scleroderma -Follows [facility] and [facility] for GERD, dysphagia, chronic diarrhea, esophagitis, esophageal strictures, and gastropares is. * Home lactase 3000 units 4 times daily as needed * Saccharomyces Boulardii to 50 mg p.o. every morning * Creon * Beano * Hydroxychloroquine 400 mg * Vitamin B complex GERD -Takes omeprazole 40 mg at home. * P.o. pantoprazole 40 mg Hypertension -Takes HCTZ 6.25 mg daily, spironolactone 25 mg daily * Continue HCTZ, spironolactone Lumbar degenerative disc disease * Continue home regimen tramadol-acetaminophen 37.5-325 mg p.o. 4 times daily as needed Atrial fibrillation -Chronically on metoprolol succinate 100 mg daily, Xarelto 20 mg for anticoagulation. * Continue home metoprolol succinate, Xarelto Code: Full code Dispo: Med-Surg telemetry FEN/GI: Heart healthy DVT Prophylaxis: Xarelto 20 mg daily (2) Scleroderma: (3) Pulmonary fibrosis: (4) History of atrial fibrillation: (5) GERD (gastroesophageal reflux disease): (6) Lumbar degenerative disc disease: Admission and Anticipated Discharge Date Admission Date: May 21, 2022 Subjective Patient reports she has been having coughing spells when she moves, however her symptoms have improved when comparing to her symptoms on admission. She continues to have sputum production. She states she is now able to take deep breaths and she feels like the air flow when she inhales is not getting stuck when she breathes. Review of Systems Review of Systems: All systems reviewed & are unremarkable except as noted in HPI & below Physical Exam Physical Exam: General: Well-appearing, alert, interactive, and in no acute distress. HEENT: Normocephalic, atraumatic. EOM intact. Good conjugate gaze. Nares patent. Moist mucosal membranes. Neck: Supple. No lymphadenopathy. Normal ROM. CV: Tachycardic. Regular rhythm. Normal S1 and S2. No murmurs gallops or rubs. Respiratory: Normal respiratory effort. Inspiratory and expiratory wheezes heard diffusely on auscultation. No crackles or rhonchi heard. Abdomen: Soft, nondistended abdomen. No bruits heard on auscultation. Mild diffuse tenderness to palpation without guarding or rebound. Extremities: Capillary refill <2 sec. 2+ dp equal bilaterally. Mild pedal edema Neuro: Alert and oriented x3. Skin: Clean, dry, and intact. No rashes, bruises, or erythema. Results & Data Results & Data Vital Signs (Past 12 Hours) Vital Signs Temp Pulse Pulse Resp BP Pulse Ox O2 Del Method 05/22/22 11:48 36.8 C 93 H 18 109/69 98 Nasal Cannula 05/22/22 11:28 91 H 18 98 Nasal Cannula 05/22/22 08:00 Nasal Cannula 05/22/22 07:37 36.8 C 125 H 18 117/77 96 Nasal Cannula 05/22/22 07:29 132 H 05/22/22 07:06 93 H 16 96 Nasal Cannula 05/22/22 03:35 36.9 C 97 H 18 112/74 96 Nasal Cannula O2 Flow Rate 05/22/22 11:48 2 05/22/22 11:28 2 05/22/22 08:00 2 05/22/22 07:37 2 05/22/22 07:29 05/22/22 07:06 2 05/22/22 03:35 2 PG Care Time/CCT Total # of Minutes Spent Total Time Spent with Patient: Total time spent is greater than 50% in coordination of care (as documented) at patient's floor/unit and/or counseling patient: Coding Level of Care Code 89616 SUB INP/OBS CARE MIN Diagnoses Acute respiratory distress R06.03 Scleroderma M34.9 Pulmonary fibrosis J84.10 History of atrial fibrillation Z86.79 GERD (gastroesophageal reflux disease) K21.9 Lumbar degenerative disc disease M51.36
[2022-05-22] MEDS: HYDROXYCHLOROQUINE SULFATE 200 MG TAB PO SCH (20:54)
[2022-05-22] MEDS: RIVAROXABAN 20 MG TAB PO SCH (20:55)
[2022-05-22] MEDS: METOPROLOL SUCC 50MG EXT REL TAB PO SCH (20:55)
[2022-05-22] MEDS: VITAMIN B COMPLEX TAB PO SCH (20:56)
[2022-05-22] MEDS ORDERED: NON-FORMULARY MEDICATION (Mv-Mn-Fa-Vit K-Lycop-Lute-Zeax [Ocuvite Eye Plus Multi] 200-15-1 PO SCH (21:00)
[2022-05-22 22:15] LABS: Adenovirus PCR Not Detected (NotDetected); Bordetella parapertussis PCR Not Detected (NotDetected); Bordetella pertussis PCR Not Detected (NotDetected); Chlamydia pneumoniae PCR Not Detected (NotDetected); Coronavirus 229E PCR Not Detected (NotDetected); Coronavirus CoV-2 (COVID19)PCR Not Detected (NotDetected); Coronavirus HKU1 PCR Not Detected (NotDetected); Coronavirus NL63 PCR Not Detected (NotDetected); Coronavirus OC43PCR Not Detected (NotDetected); Influenza A PCR Not Detected (NotDetected); Influenza B PCR Not Detected (NotDetected); Mycoplasma pneumoniae PCR Not Detected (NotDetected); Parainfluenza Virus 1 PCR Not Detected (NotDetected); Parainfluenza Virus 2 PCR Not Detected (NotDetected); Parainfluenza Virus 3 PCR Not Detected (NotDetected); Parainfluenza Virus 4 PCR Not Detected (NotDetected); Respiratory Syncytial VirusPCR Not Detected (NotDetected); Rhinovirus/Enterovirus PCR Not Detected (NotDetected)
[2022-05-22 22:26] LABS: Human Metapneumovirus PCR DETECTED (NotDetected)
[2022-05-23] MEDS: ALBUT/IPRATROP 3MG/0.5MG NEB 3 ML VIAL NEB SCH ×6 (02:24→22:12)
[2022-05-23] MEDS: SPIRONOLACTONE 25 MG TAB PO SCH (08:56)
[2022-05-23] MEDS: CETIRIZINE HCL 10 MG TABLET PO SCH (08:56)
[2022-05-23] MEDS: LACTASE 3000 UNIT TAB PO PRN (08:57)
[2022-05-23] MEDS: PANTOprazole 40 MG TAB PO SCH (08:57)
[2022-05-23] MEDS: MULTIVITAMIN TAB PO SCH (08:57)
[2022-05-23] MEDS: hydroCHLOROthiazide 25 MG TAB PO SCH (08:58)
[2022-05-23] MEDS: SACCHAROMYCES BOULARDII 250 MG CAP PO SCH (08:59)
[2022-05-23] MEDS: CALCIUM CARBONATE 500 MG CHEWABLE TAB PO SCH (08:59)
[2022-05-23] MEDS: PANCREAZE (LIPASE 4,200U) CAP PO SCH ×3 (09:00→16:23)
[2022-05-23] MEDS: OMEGA-3 (PURIFIED FISH OIL) 1 GM CAP PO SCH (09:00)
[2022-05-23] MEDS: FLUTICASONE/VILANTEROL 200/25MCG 14 PUFFS/INHALER INH SCH (09:01)
[2022-05-23] MEDS: FLUTICASONE PROPIONATE NA SPR 16 GM BTL SCH (09:01)
[2022-05-23] MEDS: guaiFENesin 600 MG TABCR PO SCH ×2 (09:01→20:08)
[2022-05-23] MEDS: POTASSIUM CHLORIDE CRTAB 20 MEQ TABCR PO SCH ×3 (09:02→20:09)
[2022-05-23] MEDS: MYCOPHENOLATE MOFETIL 250 MG CAP PO SCH ×2 (09:02→20:10)
[2022-05-23 09:10] LABS: Basophils # (auto) 0.01 K/uL (0-0.2); Basophils % (auto) 0.2 %; Eosinophils # (auto) 0.01 K/uL (0-0.50); Eosinophils % (auto) 0.2 %; Hematocrit (blood only) 35.4 % (37.0-47.0); Hemoglobin 11.6 g/dl (12.0-16.0); Immature Granulocytes # (auto) 0.01 K/uL (0.01-0.20); Immature Granulocytes % (auto) 0.2 %; Lymphocytes # (auto) 1.27 K/uL (1.2-3.4); Lymphocytes % (auto) 29.5 %; Mean Corpuscular Hemoglobin 33.9 pg (25.0-34.0); Mean Corpuscular Hgb Conc 32.8 g/dL (32.0-36.0); Mean Corpuscular Volume 103.5 fL (80.0-100.0); Mean Platelet Volume 9.9 fL (9.4-12.4); Monocytes # (auto) 0.39 K/uL (0.11-0.59); Monocytes % (auto) 9.1 %; Neutrophils # (auto) 2.61 K/uL (1.40-6.50); Neutrophils % (auto) 60.8 %; Platelet Count 188 K/uL (130-400); RDW Coefficient of Variation 13.9 % (11.5-14.5); RDW Standard Deviation 53.2 fL (36.4-46.3); Red Blood Count 3.42 M/uL (4.20-5.40)
[2022-05-23 10:10] LABS: Albumin Level 2.7 gm/dl (3.4-5.0); Bilirubin,Total 0.8 mg/dl (0.2-1.0); Calcium 7.9 mg/dl (8.6-10.3); Magnesium 1.9 mg/dl (1.7-2.4); Potassium 4.6 mmol/L (3.5-5.1)
[2022-05-23 10:28] LABS: Albumin Globulin Ratio 0.9 (0.9-2); BUN Creatinine Ratio 17.1 (10-20); Creatinine Clr Calc Pharmacy 165.4 ml/min; Est GFR (African American) 129.6 ml/min; Est GFR (Non-African American) 111.8 ml/min; Globulin 3.1 gm/dl (2.5-4.0); Phosphorus 3.2 mg/dl (2.5-4.9); Total Protein 5.8 gm/dl (6.0-8.3)
[2022-05-23] MEDS ORDERED: DOXYCYCLINE HYCLATE 100 MG CAP PO STA (10:46)
[2022-05-23] MEDS: SODIUM CHLOR 7% 4 ML NEB NEB SCH ×2 (15:35→19:05)
[2022-05-23] MEDS ORDERED: DOXYCYCLINE HYCLATE 100 MG in DEXTROSE 5% 100 ML IV STA (18:09)
[2022-05-23] MEDS: HYDROXYCHLOROQUINE SULFATE 200 MG TAB PO SCH (20:08)
[2022-05-23] MEDS: RIVAROXABAN 20 MG TAB PO SCH (20:09)
[2022-05-23] MEDS: VITAMIN B COMPLEX TAB PO SCH (20:10)
[2022-05-23] MEDS: METOPROLOL SUCC 50MG EXT REL TAB PO SCH (20:10)
--- NOTE | 2022-05-23 22:50 | Hospitalist Progress Note ---
Date of Service May 23, 2022 Assessment & Plan (1) Acute respiratory distress: Plan: 67-year-old woman with history of scleroderma, pulmonary fibrosis, asthma, GERD, atrial fibrillation (on Xarelto) who presents to the hospital with worsening acute shortness of breath. Now admitted to the hospital for management of acute respiratory distress, secondary to asthma flare. Acute respiratory distress -Afebrile, hemodynamically stable on admission. No evidence of pneumonia/pneumonitis, other acute process on CXR, CTA chest. -S/p IV ceftriaxone 2 g, DuoNeb treatment in ED. -Documented mixed restrictive/obstructive lung disease pattern secondary to pulmonary fibrosis, in turn 2/[address]oderma[address] Follow[address] with [address] Miller at [facility]. -Improved following nebulizer treatment in the emergency room. * Admit to MedSur telemetry unit * IV Solu-Medrol 125 mg x 1 * DuoNeb every 4 hours x24 hours * Prednisone 40 mg p.o. x4 days. (IV, oral steroids x5 days total) * Guaifenesin 1200 mg p.o. every 12 hours * Continue Home maintenance asthma regimen: Advair inhaler daily, as needed ProAir inhaler * Given history of scleroderma and current bronchitis, will treat patient with doxycycline in the AM. * Given her complicated pulmonary history pulmonary fibrosis, will continue to monitor patient. * Patient on 2 liters nasal cannula, will obtain imaging the next day, place on hypertonic saline. Pulmonary fibrosis -Sees Dr. Miller at [facility] outpatient. Also follows [facility] rheumatology, GI. -Review of last outpatient note reveals pulm fibrosis managed medically by roofing applicator (mycophenolate, nintedanib). -Patient was previously on amiodarone, which was discontinued due to concern for worsening pulmonary fibrosis. -Patient is also scheduled to be evaluated for transplant at [facility] * Mycophenolate 500 mg p.o. twice daily * Nintedanib 150 mg p.o. every 12 hours Scleroderma -Follows [facility] GI and [facility] rheumatology for GERD, dysphagia, chronic diarrhea, esophagitis, esophageal strictures, and gastroparesis. * Home lactase 3000 units 4 times daily as needed * Saccharomyces Boulardii to 50 mg p.o. every morning * Creon * Beano * Hydroxychloroquine 400 mg * Vitamin B complex GERD -Takes omeprazole 40 mg at home. * P.o. pantoprazole 40 mg Hypertension -Takes HCTZ 6.25 mg daily, spironolactone 25 mg daily * Continue HCTZ, spironolactone Lumbar degenerative disc disease * Continue home regimen tramadol-acetaminophen 37.5-325 mg p.o. 4 times daily as needed Atrial fibrillation -Chronically on metoprolol succinate 100 mg daily, Xarelto 20 mg for anticoagulation. * Continue home metoprolol succinate, Xarelto Code: Full code Dispo: Med-Surg telemetry FEN/GI: Heart healthy DVT Prophylaxis: Xarelto 20 mg daily (2) Scleroderma: (3) Pulmonary fibrosis: (4) History of atrial fibrillation: (5) GERD (gastroesophageal reflux disease): (6) Lumbar degenerative disc disease: Admission and Anticipated Discharge Date Admission Date: May 21, 2022 Subjective Patient reports no new symptoms. Patient continues to require 2 liters nasal cannula Review of Systems Review of Systems: All systems reviewed & are unremarkable except as noted in HPI & below Physical Exam Physical Exam: General: Well-appearing, alert, interactive, and in no acute distress. HEENT: Normocephalic, atraumatic. EOM intact. Good conjugate gaze. Nares patent. Moist mucosal membranes. Neck: Supple. No lymphadenopathy. Normal ROM. CV: Tachycardic. Regular rhythm. Normal S1 and S2. No murmurs gallops or rubs. Respiratory: Normal respiratory effort. Inspiratory and expiratory wheezes heard diffusely on auscultation. No crackles or rhonchi heard. Abdomen: Soft, nondistended abdomen. No bruits heard on auscultation. Mild diffuse tenderness to palpation without guarding or rebound. Extremities: Capillary refill <2 sec. 2+ dp equal bilaterally. Mild pedal edema Neuro: Alert and oriented x3. Skin: Clean, dry, and intact. No rashes, bruises, or erythema. Results & Data Results & Data Vital Signs (Past 12 Hours) Vital Signs Temp Pulse Pulse Resp BP Pulse Ox O2 Del Method 05/23/22 22:14 86 18 99 Nasal Cannula 05/23/22 20:23 37.3 C 91 H 18 129/78 96 Room Air 05/23/22 19:05 93 H 16 88 L Room Air, Nasal Cannula 05/23/22 18:37 85 05/23/22 15:16 87 20 93 Nasal Cannula 05/23/22 15:08 36.7 C 87 18 119/79 95 Nasal Cannula 05/23/22 12:00 36.5 C 88 18 149/69 H 93 Nasal Cannula O2 Flow Rate 05/23/22 22:14 2 05/23/22 20:23 05/23/22 19:05 05/23/22 18:37 05/23/22 15:16 1 05/23/22 15:08 2 05/23/22 12:00 2 PG Care Time/CCT Total # of Minutes Spent Total Time Spent with Patient: Total time spent is greater than 50% in coordination of care (as documented) at patient's floor/unit and/or counseling patient: Coding Level of Care Code 27312 SUB INP/OBS CARE 2/35MIN Diagnoses Acute respiratory distress R06.03 Scleroderma M34.9 Pulmonary fibrosis J84.10 History of atrial fibrillation Z86.79 GERD (gastroesophageal reflux disease) K21.9 Lumbar degenerative disc disease M51.36
[2022-05-24] MEDS: ALBUT/IPRATROP 3MG/0.5MG NEB 3 ML VIAL NEB SCH ×4 (03:05→15:21)
[2022-05-24] MEDS: SODIUM CHLOR 7% 4 ML NEB NEB SCH (07:24)
[2022-05-24 08:19] LABS: Basophils # (auto) 0.01 K/uL (0-0.2); Basophils % (auto) 0.3 %; Eosinophils # (auto) 0.04 K/uL (0-0.50); Hematocrit (blood only) 33.1 % (37.0-47.0); Hemoglobin 10.8 g/dl (12.0-16.0); Immature Granulocytes # (auto) 0.01 K/uL (0.01-0.20); Immature Granulocytes % (auto) 0.3 %; Lymphocytes # (auto) 1.25 K/uL (1.2-3.4); Lymphocytes % (auto) 31.8 %; Mean Corpuscular Hemoglobin 34.2 pg (25.0-34.0); Mean Corpuscular Hgb Conc 32.6 g/dL (32.0-36.0); Mean Corpuscular Volume 104.7 fL (80.0-100.0); Mean Platelet Volume 10.2 fL (9.4-12.4); Monocytes # (auto) 0.31 K/uL (0.11-0.59); Monocytes % (auto) 7.9 %; Neutrophils # (auto) 2.31 K/uL (1.40-6.50); Neutrophils % (auto) 58.7 %; Platelet Count 180 K/uL (130-400); RDW Coefficient of Variation 13.3 % (11.5-14.5); RDW Standard Deviation 51.8 fL (36.4-46.3); Red Blood Count 3.16 M/uL (4.20-5.40); White Blood Count 3.93 K/ul (4.8-10.8)
[2022-05-24 08:46] LABS: Albumin Globulin Ratio 0.9 (0.9-2); Albumin Level 2.6 gm/dl (3.4-5.0); Bilirubin,Total 0.8 mg/dl (0.2-1.0); Calcium 7.7 mg/dl (8.6-10.3); Creatinine Clr Calc Pharmacy 207.2 ml/min; Est GFR (African American) 139.5 ml/min; Est GFR (Non-African American) 120.3 ml/min; Globulin 2.8 gm/dl (2.5-4.0); Magnesium 1.8 mg/dl (1.7-2.4); Total Protein 5.4 gm/dl (6.0-8.3)
[2022-05-24] MEDS: PANCREAZE (LIPASE 4,200U) CAP PO SCH ×3 (08:52→16:35)
[2022-05-24] MEDS: CETIRIZINE HCL 10 MG TABLET PO SCH (08:53)
[2022-05-24] MEDS: CALCIUM CARBONATE 500 MG CHEWABLE TAB PO SCH (08:53)
[2022-05-24] MEDS: OMEGA-3 (PURIFIED FISH OIL) 1 GM CAP PO SCH (08:53)
[2022-05-24] MEDS: FLUTICASONE PROPIONATE NA SPR 16 GM BTL SCH (08:54)
[2022-05-24] MEDS: FLUTICASONE/VILANTEROL 200/25MCG 14 PUFFS/INHALER INH SCH (08:54)
[2022-05-24] MEDS: MYCOPHENOLATE MOFETIL 250 MG CAP PO SCH (08:55)
[2022-05-24] MEDS: hydroCHLOROthiazide 25 MG TAB PO SCH (08:55)
[2022-05-24] MEDS: MULTIVITAMIN TAB PO SCH (08:55)
[2022-05-24] MEDS: guaiFENesin 600 MG TABCR PO SCH (08:55)
[2022-05-24] MEDS: SPIRONOLACTONE 25 MG TAB PO SCH (08:56)
[2022-05-24] MEDS: SACCHAROMYCES BOULARDII 250 MG CAP PO SCH (08:56)
[2022-05-24] MEDS: PANTOprazole 40 MG TAB PO SCH (08:56)
[2022-05-24] MEDS ORDERED: DOXYCYCLINE HYCLATE 100 MG in DEXTROSE 5% 100 ML IV SCH (09:45)
--- NOTE | 2022-05-24 10:38 | XRay Report ---
TWO VIEW CHEST CLINICAL HISTORY: Hypoxia. FINDINGS: PA and lateral chest radiographs are compared to chest x-ray and chest CT dated 05/21/2022. The heart is mildly enlarged noting atherosclerotic calcification of the thoracic aorta. The pulmonar y vasculature is noncongested There are low lung volumes with bibasilar scarring/atelectasis. Mild mike bpleural reticulation is seen throughout both lungs. No superimposed airspace consolidation or large pleural effusion is identified. There is no pneumothorax. The skeletal structures are osteopenic. The bony thorax appears intact. Degenerative change is seen in the shoulders. Calcified joint bodies are noted on the right. Suture material projects over the left upper quadrant of the abdomen. IMPRESSION: Cardiomegaly and chronic parenchymal changes as above with no acute cardiopulmonary abnor mality identified. ACT 112: Negative or not required by law. Electronically signed by: Trevor Ley M.D. 05/24/2022 10:37 AM
--- NOTE | 2022-05-24 15:22 | Discharge Summary ---
Date of Service May 24, 2022 Admission HPI Per Admitting Provider Chills 67-year-old woman past medical history of AF ([place], follows with Dr. Macias), scleroderma (+ Raynaud's, pulm fibrosis, gastroparesis) who presents for shortness of breath x approximately 1 week. She also reports sore throat and "difficulty lying flat at night." She denies hemoptysis, LE swelling. ROS + LE cramps, chest congestion, headache, nausea. In the ED, labs were notable for a normal WBC, hemoglobin level within normal limits, albeit with macrocytosis, AST 59, alk phos 115, and a negative respiratory viral panel. CXR read showed no evidence of pleural effusion or pneumothorax. Chest CTA showed evidence of prominent hepatic steatosis. She received a dose of an albuterol nebulizer, IV ceftriaxone 2 g, and an NS bolus x1 L. On admission, she reports mild improvement in her chest congestion, which she attributes to the nebulizer treatment she received. She has no new symptoms to report. Principal Diagnosis human metapneumovirus causing acute respiratory hypoxic failure Discharge Exam General: Well-appearing, alert, interactive, and in no acute distress. HEENT: Normocephalic, atraumatic. EOM intact. Good conjugate gaze. Nares patent. Moist mucosal membranes. Neck: Supple. No lymphadenopathy. Normal ROM. CV: Tachycardic. Regular rhythm. Normal S1 and S2. No murmurs gallops or rubs. Respiratory: Normal respiratory effort. Clear with minimal rhonchi. No crackle s. Abdomen: Soft, nondistended abdomen. No bruits heard on auscultation. Mild diffuse tenderness to palpation without guarding or rebound. Extremities: Capillary refill <2 sec. 2+ dp equal bilaterally. Mild pedal edema Neuro: Alert and oriented x3. Skin: Clean, dry, and intact. No rashes, bruises, or erythema. Discharge Data Allergies Allergy/AdvReac Type Severity Reaction Status Date / Time simvastatin [From Zocor] Allergy Intermediate "made me Verified 05/21/22 21:14 pass out" ibuprofen Allergy Mild stomach Verified 05/21/22 21:14 pain naproxen [From Aleve] Allergy Mild STOMACH Verified 05/21/22 21:14 PAIN oxycodone [From Percocet] Allergy Mild stomach Verified 05/21/22 21:14 pain oyster extract AdvReac Gastrointestinal Verified 05/21/22 21:15 Upset scallops AdvReac Gastrointestinal Verified 05/21/22 21:15 Upset Consultations 05/21/22 21:21 ED Decision to Admit Stat Ordered Studies 05/21/22 18:49 CT angio chest PE protocol Stat Hospital Course (1) Acute respiratory distress: 67-year-old woman with history of scleroderma, pulmonary fibrosis, asthma, GERD, atrial fibrillation (on Xarelto) who presents to the hospital with worsening acute shortness of breath. Now admitted to the hospital for management of acute respiratory distress, secondary to asthma flare. Acute respiratory distress -Afebrile, hemodynamically stable on admission. No evidence of pneumonia/pneumonitis, other acute process on CXR, CTA chest. -S/p IV ceftriaxone 2 g, DuoNeb treatment in ED. -Documented mixed restrictive/obstructive lung disease pattern secondary to pulmonary fibrosis, in turn 2/[address] Miller at [facility]. -Improved following nebulizer treatment in the emergency room. * Admit to [facility] telemetry unit * IV Solu-Medrol 125 mg x 1 * DuoNeb every 4 hours x24 hours * Prednisone 40 mg p.o. x4 days. (IV, oral steroids x5 days total) * Guaifenesin 1200 mg p.o. every 12 hours * Continue Home maintenance asthma regimen: Advair inhaler daily, as needed ProAir inhaler * Given history of scleroderma and current bronchitis, will treat patient with doxycycline in the AM. * Given her complicated pulmonary history pulmonary fibrosis, patient required inpatient stay. * BIOFIRE showed human metapneumovirus. Patient improved with supportive care. Pulmonary fibrosis -Sees Dr. Miller at [facility] outpatient. Also follows [facility] rheumatology, GI. 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 -Patient was previously on amiodarone, which was discontinued due to concern for worsening pulmonary fibrosis. -Patient is also scheduled to be evaluated for transplant at [facility] * Mycophenolate 500 mg p.o. twice daily * Nintedanib 150 mg p.o. every 12 hours Scleroderma -Follows [facility] and [facility] rheumatology for GERD, dysphagia, chronic diarrhea, esophagitis, esophageal strictures, and gastroparesis. * Home lactase 3000 units 4 times daily as needed * Saccharomyces Boulardii to 50 mg p.o. every morning * Creon * Beano * Hydroxychloroquine 400 mg * Vitamin B complex GERD -Takes omeprazole 40 mg at home. * P.o. pantoprazole 40 mg Hypertension -Takes HCTZ 6.25 mg daily, spironolactone 25 mg daily * Continue HCTZ, spironolactone Lumbar degenerative disc disease * Continue home regimen tramadol-acetaminophen 37.5-325 mg p.o. 4 times daily as needed Chronic atrial fibrillation -Chronically on metoprolol succinate 100 mg daily, Xarelto 20 mg for anticoagulation. * Continue home metoprolol succinate, Xarelto Code: Full code Dispo: Med-Surg telemetry FEN/GI: Heart healthy DVT Prophylaxis: Xarelto 20 mg daily (2) Scleroderma: (3) Pulmonary fibrosis: (4) History of atrial fibrillation: (5) GERD (gastroesophageal reflux disease): (6) Lumbar degenerative disc disease: Total Time Total Time Spent Total Time Spent (In Minutes): 32 Discharge Plan Discharge Items Patient Disposition: Home - Self-Care Reason For Visit: SOB Discharge Diagnosis: Human metapneumovirus Activity: Resume your previous activity Non-emergency contact: Primary Care Provider Call non-emergency contact if: you have any medication questions Follow-up/Referrals: Marcia Clemente MD [Primary Care Provider] - 05/26/22 10:25 am (Your follow up appt is May 26, 2022 @ [address] Bolanos) Diet: Heart Healthy Addtl Attending Provider Instructions: Good evening Mrs Mcnair, You were seen for your shortness of breath. You were found to have a virus called Human Metapneumovirus. This accompanied with your pulmonary fibrosis likely led to you feeling this sick. Thankfully you have been improving each day. Your cough may linger for weeks. I will recommend you continue your current medicine and followup with your PCP in 1-2 weeks. Please continue your antibiotic and take it in the evening. It was a pleasure taking care of you. I wish you the best. Kindest regards, Jean Riggs Pending Studies at Discharge: No Stand-Alone Forms: My [facility], Smoking Cessation Medications and DC Order Prescriptions: New guaifenesin [Mucinex] 600 mg Tablet Extended Release 12hr 1,200 mg PO Q12 Qty: 14 0RF doxycycline hyclate 100 mg capsule 100 mg PO BID Qty: 10 0RF Continued mycophenolate mofetil 250 mg capsule 500 mg PO BID Ofev 150 mg capsule 150 mg PO Q12H Qty: 180 3RF lactase 3,000 unit tablet 3,000 units PO QID PRN (Reason: Abdominal Discomfort) Beano 150 unit tablet 1 tab PO 6XD PRN (Reason: Gastrointestinal Spasms Or Cramping) multivitamin Tablet 1 tab PO QAM hydrochlorothiazide 12.5 mg tablet 6.25 mg PO QAM albuterol sulfate [ProAir HFA] 90 mcg/actuation HFA aerosol inhaler 1 puff INH Q6H PRN (Reason: shortness of breath or wheezing) Qty: 8 0RF Advair HFA 115-21 mcg/actuation HFA aerosol inhaler 2 puff INH BID Qty: 12 3RF Rx Instructions: 90-day supply ( 3 inhalers ) with 3 refills triamcinolone acetonide [Nasacort] 55 mcg aerosol,spray 2 sprays INTNAS DAILY Qty: 33.8 0RF Rx Instructions: administer into each nostril tramadol-acetaminophen 37.5-325 mg tablet 1 tab PO QID PRN (Reason: pain) Qty: 30 0RF Creon 6,000-19,000 -30,000 unit capsule,delayed release(DR/EC) 5.52770 cap PO TID Qty: 30 3RF Rx Instructions: do not exceed 10,000 unit/kg lipase per 24 hrs spironolactone 25 mg tablet 25 mg PO DAILY Xarelto 20 mg Tablet 20 mg PO QPM hydroxychloroquine 200 mg tablet 400 mg PO QPM metoprolol succinate 100 mg tablet extended release 24 hr 100 mg PO QPM vitamin B complex-folic acid 50 mcg Tablet 1 tab PO QPM omeprazole 40 mg capsule,delayed release(DR/EC) 40 mg PO QAM calcium carbonate 500 mg calcium (1,250 mg) tablet 500 mg PO QAM Saccharomyces boulardii [Digest Probiotic (S.boulardii)] 250 mg capsule 250 mg PO QAM Rx Instructions: swallow whole omega 0-omr-vcm-fish oil [Fish Oil] 1,000 mg (120 mg-180 mg) capsule 1 cap PO QAM Zyrtec 10 mg capsule 10 mg PO QAM Ocuvite Eye Plus Multi 200-15-150 mcg tablet 1 tab PO QPM Rx Instructions: administer with a meal and a large glass of water Discharge Orders: Discharge Order (Routine); Ordered 05/24/22 Ordered By: Jean Riggs Admission Data Admit Date/Time: 05/21/22 21:37 Attending Provider: Jean Riggs Admit Provider: Joelle Meraz Primary Care Provider: Marcia Clemente Other Providers: Joelle Meraz Other Interventions: Discharge Summary Assessment (RN) Last Done: 05/24/22 16:35 Coding Level of Care Code 66830 INP/OBS DISCH >30 MIN Diagnoses Acute respiratory distress R06.03 Scleroderma M34.9 Pulmonary fibrosis J84.10 History of atrial fibrillation Z86.79 GERD (gastroesophageal reflux disease) K21.9 Lumbar degenerative disc disease M51.36
== END 2022-05-24 17:30 | disposition home or self-care (01) | DRG 202 ==
LOC: ED 14:38 → SUATTDRO 21:37 → 2S 21:37
DX: I10 Essential (primary) hypertension; J45.901 Unspecified asthma with (acute) exacerbation; Z79.51 Long term (current) use of inhaled steroids; Z79.01 Long term (current) use of anticoagulants; R06.03 Acute respiratory distress; Z91.013 Allergy to seafood; I48.20 Chronic atrial fibrillation, unspecified; Z88.6 Allergy status to analgesic agent; K21.9 Gastro-esophageal reflux disease without esophagitis; Z88.5 Allergy status to narcotic agent; Z79.899 Other long term (current) drug therapy; M51.36 Other intervertebral disc degeneration, lumbar region; Z88.8 Allergy status to other drugs, medicaments and biological substances; M34.9 Systemic sclerosis, unspecified; Z79.69 Long term (current) use of other immunomodulators and immunosuppressants; J84.10 Pulmonary fibrosis, unspecified

== ENCOUNTER 2022-05-28 11:15 | Inpatient (IN) ==
[2022-05-28 12:18] LABS: Basophils # (auto) 0.02 K/uL (0-0.2); Basophils % (auto) 0.2 %; Eosinophils # (auto) 0.03 K/uL (0-0.50); Eosinophils % (auto) 0.4 %; Hematocrit (blood only) 39.5 % (37.0-47.0); Hemoglobin 13.3 g/dl (12.0-16.0); Immature Granulocytes # (auto) 0.02 K/uL (0.01-0.20); Immature Granulocytes % (auto) 0.2 %; Lymphocytes # (auto) 1.53 K/uL (1.2-3.4); Lymphocytes % (auto) 17.9 %; Mean Corpuscular Hgb Conc 33.7 g/dL (32.0-36.0); Mean Platelet Volume 10.4 fL (9.4-12.4); Monocytes # (auto) 0.56 K/uL (0.11-0.59); Monocytes % (auto) 6.6 %; Neutrophils # (auto) 6.38 K/uL (1.40-6.50); Neutrophils % (auto) 74.7 %; Platelet Count 316 K/uL (130-400); RDW Coefficient of Variation 13.2 % (11.5-14.5); RDW Standard Deviation 49.4 fL (36.4-46.3); Red Blood Count 3.91 M/uL (4.20-5.40); White Blood Count 8.54 K/ul (4.8-10.8)
[2022-05-28] MEDS ORDERED: ALBUT/IPRATROP 3MG/0.5MG NEB 3 ML VIAL NEB ONE (12:37)
[2022-05-28] MEDS ORDERED: methylPREDNISolone 125 MG/2 ML VIAL IV STA (12:37)
[2022-05-28 12:40] LABS: Alanine Aminotransferase 28 U/L (7-52); Albumin Globulin Ratio 0.9 (0.9-2); Alkaline Phosphatase 83 U/L (34-104); BUN Creatinine Ratio 39.4 (10-20); Blood Urea Nitrogen 13 mg/dl (6-23); Calcium 7.7 mg/dl (8.6-10.3); Carbon Dioxide 26 mmol/L (21-32); Chloride 99 mmol/L (98-107); Creatinine Clr Calc Pharmacy 177.1 ml/min; Est GFR (African American) 132.1 ml/min; Globulin 3.5 gm/dl (2.5-4.0); Glucose 110 mg/dl (70-99(Fasting)); Lipase 6 U/L (11-82); Total Protein 6.5 gm/dl (6.0-8.3); Troponin I High Sensitivity 5.9 pg/ml (0-14)
--- NOTE | 2022-05-28 13:03 | XRay Report ---
XR chest 1V portable CLINICAL HISTORY: sob TECHNIQUE: Single frontal radiograph of the chest was obtained. Comparison: Comparison is made to chest radiograph 05/24/2022 FINDINGS: No lines and tubes are seen. The cardiomediastinal silhouette is normal. Lungs are underinflated but clear. No evidence of pleural effusion or pneumothorax. IMPRESSION: No acute abnormalities and in particular no radiographic evidence of pneumonia. ACT 112: Negative or not required by law. Electronically signed by: Nico Denis M.D. 05/28/2022 1:02 PM
[2022-05-28 13:06] LABS: Influenza A virus by PCR Negative (Neg); Influenza B virus by PCR Negative (Neg); RSV by PCR Negative (Neg); SARS CoV2 RNA(COVID-19) Ceph NEGATIVE (Negative)
[2022-05-28 13:49] LABS: Magnesium 1.6 mg/dl (1.7-2.4); Potassium 3.2 mmol/L (3.5-5.1)
[2022-05-28] MEDS ORDERED: SODIUM CHLORIDE 0.9% 500 ML IV ONE (14:09)
[2022-05-28] MEDS ORDERED: POTASSIUM CHLORIDE CRTAB 20 MEQ TABCR PO STA (14:09)
[2022-05-28] MEDS ORDERED: POTASSIUM CHLORIDE / WTR 10 MEQ/100 ML PLCT IV ONE (14:09)
[2022-05-28] MEDS ORDERED: MAGNESIUM SULFATE / D5W 1 GM/100 ML BAG IV STA (14:09)
--- NOTE | 2022-05-28 14:54 | Electrocardiogram Report ---
Test Reason : Blood Pressure : / mmHG Vent. Rate : 113 BPM Atrial Rate : 113 BPM P-R Int : 132 ms QRS Dur : 092 ms QT Int : 332 ms P-R-T Axes : 088 039 049 degrees QTc Int : 455 ms Poor data quality, interpretation may be adversely affected Sinus tachycardia with Premature atrial complexes Possible Inferior infarct (cited on or before 23-FEB-2019) Possible Anterior infarct (cited on or before 23-FEB-2019) Abnormal ECG When compared with ECG of 21-MAY-2022 17:00, No significant change was found Confirmed by Parmjit Roberts ([id number]) on 05/28/2022 2:53:56 PM Referred By: REFERRED SELF Confirmed By:Parmjit Roberts
--- NOTE | 2022-05-28 15:35 | Emergency Department Note ---
Impression & Plan Dyspnea on minimal exertion, Pulmonary fibrosis, Bronchitis due to human metapneumovirus (hMPV), Hypoxia, Hypokalemia, Hypomagnesemia ED Provider Note NAME: LJ Garcia NIKOLE AGE: 67 SEX: F ARRIVES VIA: Ambulance INFORMANT: Patient ED PROVIDER(S): Santos Liang MD CHIEF COMPLAINT: SOB, referred. PLAN: Disposition: Admit MEDICAL DECISION MAKING: The patient is a pleasant 67-year-old woman with a past medical history of pulmonary fibrosis history of paroxysmal atrial fibrillation on Xarelto, hypertension who presents to emergency department via EMS accompanied by her sister via EMS, referred by her PCPs office after having follow-up today following hospitalization from 05/21-05/24 for bronchitis related to human metapneumovirus infection. The patient was discharged on doxycycline. She reports she has been using her inhalers at home but does not feel this works as well for her as nebulization. She denies any fevers. She denies nausea, vomiting, diarrhea or urinary symptoms. She reports she feels weak and easily becomes short of breath and lightheaded with minimal exertion. On arrival the patient is chronically ill-appearing but no acute distress, afebrile with heart in the 100s and vital signs otherwise stable. O2 saturation remained stable at rest in the low 90s on room air. She appears clinically dry. She has wheezes of bilateral lung zepeda with mild rhonchi of the right mid to lower posterior lung zepeda. EKG demonstrates sinus tachycardia with PACs without overt acute ischemia. Chest x-ray negative for acute cardiopulmonary process. WBC, H/H and platelets within normal limits. Chemistry without metabolic acidosis. Potassium 3.2 with repletion initiated. Magnesium 1.6 with repletion initiated. BUN/creatinine >30 consistent with the patient's clinically dry appearance. High-sensitivity troponin 5.9, within normal limits. BNP marginally above normal at 138, nonspecific and suspect may be related to the patient's tachycardia in the setting of her bronchitis. COVID-19, influenza and RSV PCR's were negative. Upon reevaluation the patient did report feeling some improvement however the patient and her sister are still concerned as she became significantly short of breath with simply ambulating to the bathroom. An ambulatory pulse ox was performed and the patient did desaturate to 85% and improved to 88% at rest and so was placed on 2 L nasal cannula. Given the patient's dyspnea and hypoxia on exertion we agreed to refer the patient to hospital service for evaluation for admission. Procalcitonin was performed and was not elevated. Case was discussed with Letty Blanco [facility] PAC and Dr. Mcfarlane, [facility] hospitalist, who will evaluate the patient for admission. Further management per admitting team. Triage Nursing notes reviewed and agree them. Prior/outside medical records reviewed Vital Signs: reviewed Differential diagnosis: Reactive airway disease, pneumonia, pneumothorax, COPD, CHF, infections, cardiac ischemia, pulmonary embolism, musculoskeletal, gastrointestinal, as well as other pathologies. ER treatment provided: See below. Diagnostics interpreted by me: ECG: Sinus tachycardia with PACs, 113 bpm, no ectopy, no overt ST elevation or depression, QTc 455, QRS 92 Cardiac Monitoring: An order for continuous cardiac monitoring was placed and demonstrated Sinus tachycardia with PACs, 113 bpm, no ectopy. Laboratory studies: See below Imaging studies: See below Consultation(s): Case was discussed with Dr. Mcfarlane, [facility] hospitalist, who will evaluate the patient for admission. HPI: The patient is a pleasant 67-year-old woman with a past medical history of pulmonary fibrosis history of paroxysmal atrial fibrillation on Xarelto, hypertension who presents to emergency department via EMS accompanied by her sister via EMS, referred by her PCPs office after having follow-up today following hospitalization from 05/21-05/24 for bronchitis related to human metapneumovirus infection. The patient was discharged on doxycycline. She reports she has been using her inhalers at home but does not feel this works as well for her as nebulization. She denies any fevers. She denies nausea, vomiting, diarrhea or urinary symptoms. She reports she feels weak and easily becomes short of breath and lightheaded with minimal exertion. ROS: See above HPI for pertinent positives & negatives. A total of 10 systems reviewed and were otherwise negative. VITALS:See Below PHYSICAL EXAMINATION: GENERAL: Awake, alert, chronically ill-appearing, in no distress HENT: Normocephalic, atraumatic. Oropharynx with dry mucous membranes and ot herwise unremarkable. EYES: Normal conjunctiva. Sclera non-icteric. NECK: Supple. No nuchal rigidity. FROM. No JVD. RESPIRATORY: Wheezes of bilateral lung zepeda with mild rhonchi of the right mid to lower posterior lung zepeda. CARDIAC: Tachycardic rate, normal rhythm. Extremities warm and well perfused. Pulses equal. ABDOMEN: Soft, non-distended. No tenderness to palpation. No rebound or guard ing. No masses. RECTAL: Deferred. MUSCULOSKELETAL: Chest examination reveals no tenderness. The back is symmetrical on inspection without obvious abnormality. There is no CVA tenderness to palpation. No joint edema. LOWER EXTREMITIES: Calves are equal size bilaterally and non-tender. No edema. No discoloration. NEURO: Normal sensorium. No sensory or motor deficits noted. SKIN: No rash or jaundice noted. Santos Liang MD Past Med/Surg History Medical History Asthma inhalers daily/prn Atrial fibrillation on xarelto follows with Dr. Bustamante Chronic back pain Chronic diarrhea Gastroparesis Hypertension On anticoagulant therapy xarelto daily Osteoarthritis Pulmonary fibrosis Raynaud's syndrome Scleroderma Surgical History History of benign breast biopsy History of bilateral cataract extraction History of cardiac radiofrequency ablation (~10/2020) @ [facility] History of cholecystectomy History of colonoscopy History of dilatation and curettage History of esophagogastroduodenoscopy (EGD) History of gastric bypass raymundo-en-y History of hand surgery finger surgery History of hernia repair History of surgery Mutiple GI procedures for blocked bowel. History of tooth extraction full upper History of total right knee replacement (TKR) Status post fine needle biopsy on thyroid--all benign Family History Father Hearing loss Brother Hearing loss Other Cancer Heart disease Hypertension No family history of adverse response to anesthesia No family history of bleeding disorder Stroke Social History Smoking Status: Never smoker Second Hand Exposure: No; Hx Alcohol Use: No Hx Substance Use: No Preferred Language: [place] Island[place] Communication Ability: Effective Director Learning Required: No Beliefs That Will Affect Care: None marital status: Single Current Living Situation: Alone current occupational status: retired Other Information That Helps Us Care for You: No Feels Safe at Home: Yes Safety Concerns: Feels Safe At This Time Diet Comment: gastroparesis caffeine: Yes Assistive Devices: Cane, Denture - Upper and Glasses Allergies Allergies Allergy/AdvReac Type Severity Reaction Status Date / Time simvastatin [From Zocor] Allergy Intermediate "made me Verified 05/28/22 17:05 pass out" ibuprofen Allergy Mild stomach Verified 05/28/22 17:05 pain naproxen [From Aleve] Allergy Mild STOMACH Verified 05/28/22 17:05 PAIN oxycodone [From Percocet] Allergy Mild stomach Verified 05/28/22 17:05 pain oyster extract AdvReac Gastrointestinal Verified 05/28/22 17:05 Upset scallops AdvReac Gastrointestinal Verified 05/28/22 17:05 Upset Home Meds Home Medications Medication Instructions Recorded Confirmed hydroxychloroquine 200 mg tablet 400 mg PO QPM 02/23/19 05/28/22 rivaroxaban 20 mg tablet (Xarelto) 20 mg PO QPM 02/23/19 05/28/22 lactase 3,000 unit tablet 3,000 units PO QID PRN Abdominal 05/08/19 05/28/22 Discomfort multivitamin 1 tab PO QAM 05/08/19 05/28/22 metoprolol succinate 100 mg 100 mg PO QPM 04/25/20 05/28/22 tablet,extended release 24 hr Saccharomyces boulardii 250 mg 250 mg PO QAM 04/28/21 05/28/22 capsule (Digest Probiotic (S.boulardii)) calcium carbonate 500 mg calcium 500 mg PO QAM 04/28/21 05/28/22 (1,250 mg) tablet cetirizine 10 mg capsule (Zyrtec) 10 mg PO QAM 04/28/21 05/28/22 bnlyarbv-hcy-HX 200 mcg-vit K 15 1 tab PO QPM 04/28/21 05/28/22 mcg-lycope 150 wsz-yjuwzf-tgia tablet (Ocuvite Eye Plus Multi) omega 0-ezt-gqe-fish oil 1,000 mg 1 cap PO QAM 04/28/21 05/28/22 (120 mg-180 mg) capsule (Fish Oil) omeprazole 40 mg capsule,delayed 40 mg PO QAM 04/28/21 05/28/22 release vitamin B complex-folic acid 50 1 tab PO QPM 04/28/21 05/28/22 mcg tablet spironolactone 25 mg tablet 25 mg PO DAILY 03/29/22 05/28/22 bkgaa-o-fwgiemkqoaxdb 450 unit 450 unit PO BIDWMEAL PRN .abd 05/28/22 05/28/22 disintegrating tablet (Beano) bloating cyanocobalamin (vitamin B-12) 500 500 mcg PO DAILY 05/28/22 05/28/22 mcg tablet fluticasone 250 mcg-salmeterol 50 1 inh inhalation BID 05/28/22 05/28/22 mcg/dose blistr powdr for inhalation (Advair Diskus) hydrochlorothiazide 25 mg tablet 12.5 mg PO DAILY 05/28/22 05/28/22 gyuyri-ejvvamfl-ltafonx 1 cap PO TID 05/28/22 05/28/22 6,000-19,000-30,000 unit capsule,delayed rel (Creon) mycophenolate mofetil 500 mg tablet 500 mg PO BID 05/28/22 05/28/22 prednisolone acetate 1 % eye 0 drp OPB QAM 05/28/22 05/28/22 drops,suspension prednisolone acetate 1 % eye 0 drp OPL QPM 05/28/22 05/28/22 drops,suspension rivaroxaban 20 mg tablet (Xarelto) 20 mg PO QPM 05/28/22 05/28/22 simethicone 80 mg chewable tablet 80 mg PO DIRECTED PRN 05/28/22 05/28/22 .gas/bloating sucralfate 1 gram tablet 1 g PO ACHS PRN Acid Reflux 05/28/22 05/28/22 Previous Rx's Medication Instructions Recorded tramadol 37.5 mg-acetaminophen 325 1 tab PO QID PRN pain #30 tabs 11/14/18 mg tablet triamcinolone acetonide 55 mcg 2 sprays intranasal DAILY #33.8 mL 11/14/18 nasal spray aerosol (Nasacort) albuterol sulfate 90 mcg/actuation 1 puff inhalation Q6H PRN 10/28/20 aerosol inhaler (ProAir HFA) shortness of breath or wheezing #8 grams fluticasone propionate 115 2 puff inhalation BID #12 grams 10/28/20 mcg-salmeterol 21 mcg/actuation HFA inhaler (Advair HFA) nintedanib 150 mg capsule (Ofev) 150 mg PO Q12H #180 caps 11/17/21 doxycycline hyclate 100 mg capsule 100 mg PO BID #10 caps 05/24/22 guaifenesin 600 mg tablet, 1,200 mg PO Q12 #14 tabs 05/24/22 extended release 12 hr (Mucinex) Results & Data (ED) Vital Signs Vital Signs - 24 hr 05/28/22 11:18 05/28/22 11:18 05/28/22 11:18 Temperature 36.7 C 36.7 C Temperature Source Oral Oral Pulse Rate 130 H Pulse Rate [Exercises] Pulse Rate [Right Apical] 130 H Pulse Rate from SpO2 Sensor Respiratory Rate 16 16 Respiratory Rate [Exercises] Respiratory Effort / Characteristics Non-Labored Spontaneous Non-Labored Spontaneous Respiratory Depth Normal Normal Respiratory Pattern Regular Regular Blood Pressure 133/86 Blood Pressure [Left Arm] 133/86 Blood Pressure Mean 101 Blood Pressure Mean [Left Arm] 101 Pulse Oximetry 94 94 94 Pulse Oximetry [Exercises] Oxygen Delivery Method Room Air Room Air Room Air Oxygen Flow Rate Sepsis Recent Fever Within 48 Hours No Sepsis New/Unexplained Change in Mental Status N/A Sepsis Action Taken by Nursing No Action Required 05/28/22 11:54 05/28/22 11:53 05/28/22 13:15 Temperature Temperature Source Pulse Rate 112 H 84 Pulse Rate [Exercises] Pulse Rate [Right Apical] 110 H Pulse Rate from SpO2 Sensor 84 Respiratory Rate 18 27 H 22 Respiratory Rate [Exercises] Respiratory Effort / Characteristics Spontaneous Respiratory Depth Respiratory Pattern Blood Pressure 117/61 Blood Pressure [Left Arm] Blood Pressure Mean 79 Blood Pressure Mean [Left Arm] Pulse Oximetry 94 94 94 Pulse Oximetry [Exercises] Oxygen Delivery Method Room Air Room Air Room Air Oxygen Flow Rate Sepsis Recent Fever Within 48 Hours Sepsis New/Unexplained Change in Mental Status Sepsis Action Taken by Nursing 05/28/22 12:00 05/28/22 12:30 05/28/22 13:00 Temperature Temperature Source Pulse Rate 112 H 110 H 87 Pulse Rate [Exercises] Pulse Rate [Right Apical] Pulse Rate from SpO2 Sensor 110 H 87 Respiratory Rate 21 21 21 Respiratory Rate [Exercises] Respiratory Effort / Characteristics Respiratory Depth Respiratory Pattern Blood Pressure 130/73 115/75 126/76 Blood Pressure [Left Arm] Blood Pressure Mean 92 88 92 Blood Pressure Mean [Left Arm] Pulse Oximetry 92 93 Pulse Oximetry [Exercises] Oxygen Delivery Method Room Air Room Air Oxygen Flow Rate Sepsis Recent Fever Within 48 Hours Sepsis New/Unexplained Change in Mental Status Sepsis Action Taken by Nursing 05/28/22 13:30 05/28/22 14:00 05/28/22 14:30 Temperature Temperature Source Pulse Rate 114 H 122 H 125 H Pulse Rate [Exercises] Pulse Rate [Right Apical] Pulse Rate from SpO2 Sensor 114 H 122 H 117 H Respiratory Rate 20 18 25 H Respiratory Rate [Exercises] Respiratory Effort / Characteristics Respiratory Depth Respiratory Pattern Blood Pressure 120/77 121/77 115/68 Blood Pressure [Left Arm] Blood Pressure Mean 91 91 83 Blood Pressure Mean [Left Arm] Pulse Oximetry 100 99 97 Pulse Oximetry [Exercises] Oxygen Delivery Method Room Air Room Air Room Air Oxygen Flow Rate Sepsis Recent Fever Within 48 Hours Sepsis New/Unexplained Change in Mental Status Sepsis Action Taken by Nursing 05/28/22 15:00 05/28/22 15:15 05/28/22 15:17 Temperature Temperature Source Pulse Rate 121 H Pulse Rate [Exercises] 132 H Pulse Rate [Right Apical] Pulse Rate from SpO2 Sensor 121 H Respiratory Rate 20 Respiratory Rate [Exercises] 24 Respiratory Effort / Characteristics Respiratory Depth Respiratory Pattern Blood Pressure 130/72 Blood Pressure [Left Arm] Blood Pressure Mean 91 Blood Pressure Mean [Left Arm] Pulse Oximetry 93 88 L Pulse Oximetry [Exercises] 85 L Oxygen Delivery Method Room Air Room Air Room Air Oxygen Flow Rate Sepsis Recent Fever Within 48 Hours Sepsis New/Unexplained Change in Mental Status Sepsis Action Taken by Nursing 05/28/22 15:22 05/28/22 15:30 Temperature Temperature Source Pulse Rate 112 H Pulse Rate [Exercises] Pulse Rate [Right Apical] 113 H Pulse Rate from SpO2 Sensor 112 H Respiratory Rate 22 19 Respiratory Rate [Exercises] Respiratory Effort / Characteristics Non-Labored Spontaneous Respiratory Depth Normal Respiratory Pattern Blood Pressure 124/68 Blood Pressure [Left Arm] Blood Pressure Mean 86 Blood Pressure Mean [Left Arm] Pulse Oximetry 93 92 Pulse Oximetry [Exercises] Oxygen Delivery Method Nasal Cannula Nasal Cannula Oxygen Flow Rate 2 2 Sepsis Recent Fever Within 48 Hours Sepsis New/Unexplained Change in Mental Status Sepsis Action Taken by Nursing Laboratory Data Attestation: I reviewed the patient's lab results. 05/28/22 11:46 05/28/22 12:48 Lab Results 05/28/22 05/28/22 05/28/22 Range/Units 11:46 11:46 11:46 WBC 8.54 (4.8-10.8) K/ul RBC 3.91 L (4.20-5.40) M/uL Hgb 13.3 (12.0-16.0) g/dl Hct 39.5 (37.0-47.0) % MCV 101.0 H (80.0-100.0) fL MCH 34.0 (25.0-34.0) pg MCHC 33.7 (32.0-36.0) g/dL RDW Std Deviation 49.4 H (36.4-46.3) fL RDW Coeff of Lorenzo 13.2 (11.5-14.5) % Plt Count 316 (130-400) K/uL MPV 10.4 (9.4-12.4) fL Immature Gran % (Auto) 0.2 % Neut % (Auto) 74.7 % Lymph % (Auto) 17.9 % Dewitt % (Auto) 6.6 % Eos % (Auto) 0.4 % Baso % (Auto) 0.2 % Neut # (Auto) 6.38 (1.40-6.50) K/uL Lymph # (Auto) 1.53 (1.2-3.4) K/uL Dewitt # (Auto) 0.56 (0.11-0.59) K/uL Eos # (Auto) 0.03 (0-0.50) K/uL Baso # (Auto) 0.02 (0-0.2) K/uL Immature Gran # (Auto) 0.02 (0.01-0.20) K/uL Sodium TNP Potassium TNP Chloride 99 (98-107) mmol/L Carbon Dioxide 26 (21-32) mmol/L Anion Gap TNP BUN 13 (6-23) mg/dl Creatinine 0.33 L (0.6-1.2) mg/dl Est Cr Clr Drug Dosing 177.1 ml/min Est GFR ( Amer) 132.1 ml/min Est GFR (Non-Af Amer) 114.0 ml/min BUN/Creatinine Ratio 39.4 H (10-20) Glucose 110 H (70-99(Fasting)) mg/dl Calcium 7.7 L (8.6-10.3) mg/dl Phosphorus 3.0 (2.5-4.9) mg/dl Magnesium TNP Total Bilirubin 1.0 (0.2-1.0) mg/dl AST TNP ALT 28 (7-52) U/L Alkaline Phosphatase 83 (34-104) U/L Troponin I High Sens 5.9 (0-14) pg/ml Total Protein 6.5 (6.0-8.3) gm/dl Albumin 3.0 L (3.4-5.0) gm/dl Globulin 3.5 (2.5-4.0) gm/dl Albumin/Globulin Ratio 0.9 (0.9-2) Lipase 6 L (11-82) U/L Procalcitonin 0.17 (0-0.5) ng/ml SARS-CoV-2 (PCR) (Negative) Influenza Type A (PCR) (Neg) Influenza Type B (PCR) (Neg) RSV (RT-PCR) (Neg) 05/28/22 05/28/22 Range/Units 11:58 12:48 WBC (4.8-10.8) K/ul RBC (4.20-5.40) M/uL Hgb (12.0-16.0) g/dl Hct (37.0-47.0) % MCV (80.0-100.0) fL MCH (25.0-34.0) pg MCHC (32.0-36.0) g/dL RDW Std Deviation (36.4-46.3) fL RDW Coeff of Lorenzo (11.5-14.5) % Plt Count (130-400) K/uL MPV (9.4-12.4) fL Immature Gran % (Auto) % Neut % (Auto) % Lymph % (Auto) % Dewitt % (Auto) % Eos % (Auto) % Baso % (Auto) % Neut # (Auto) (1.40-6.50) K/uL Lymph # (Auto) (1.2-3.4) K/uL Dewitt # (Auto) (0.11-0.59) K/uL Eos # (Auto) (0-0.50) K/uL Baso # (Auto) (0-0.2) K/uL Immature Gran # (Auto) (0.01-0.20) K/uL Sodium 133 L Potassium 3.2 L Chloride (98-107) mmol/L Carbon Dioxide (21-32) mmol/L Anion Gap BUN (6-23) mg/dl Creatinine (0.6-1.2) mg/dl Est Cr Clr Drug Dosing ml/min Est GFR ( Amer) ml/min Est GFR (Non-Af Amer) ml/min BUN/Creatinine Ratio (10-20) Glucose (70-99(Fasting)) mg/dl Calcium (8.6-10.3) mg/dl Phosphorus (2.5-4.9) mg/dl Magnesium 1.6 L Total Bilirubin (0.2-1.0) mg/dl AST 51 H ALT (7-52) U/L Alkaline Phosphatase (34-104) U/L Troponin I High Sens (0-14) pg/ml Total Protein (6.0-8.3) gm/dl Albumin (3.4-5.0) gm/dl Globulin (2.5-4.0) gm/dl Albumin/Globulin Ratio (0.9-2) Lipase (11-82) U/L Procalcitonin (0-0.5) ng/ml SARS-CoV-2 (PCR) NEGATIVE (Negative) Influenza Type A (PCR) Negative (Neg) Influenza Type B (PCR) Negative (Neg) RSV (RT-PCR) Negative (Neg) Administered Medications Discontinued Medications Albuterol (Albut/Ipratrop 3mg/0.5mg Neb 3 Ml Vial) 12 ml NEB ONE ONE; Protocol Stop: 05/28/22 12:38 Last Admin: 05/28/22 13:11 Dose: 12 ml Documented By: [facility] Sodium Chloride (Nss) 500 mls @ 999 mls/hr IV .Q31M ONE Stop: 05/28/22 14:39 Last Infusion: 05/28/22 17:09 Dose: 0 mls/hr Documented By: Admin: 05/28/22 16:04 Dose: 999 mls/hr Documented By: LATOYA Magnesium Sulfate/Dextrose (Magnesium Sulfate / D5w) 1 gm in 100 mls @ 100 mls/hr IV NOW STA Stop: 05/28/22 15:08 Last Infusion: 05/28/22 16:03 Dose: 0 mls/hr Documented By: Admin: 05/28/22 14:38 Dose: 100 mls/hr Documented By: LATOYA Potassium Chloride (K Olegario / Wtr) 10 meq in 100 mls @ 100 mls/hr IV ONE ONE; Protocol Stop: 05/28/22 15:08 Last Infusion: 05/28/22 17:09 Dose: 0 mls/hr Documented By: Admin: 05/28/22 16:05 Dose: 100 mls/hr Documented By: LATOYA Methylprednisolone (Methylprednisolone 125 Mg/2 Ml Vial) 125 mg IV NOW STA Stop: 05/28/22 12:38 Last Admin: 05/28/22 13:12 Dose: 125 mg Documented By: LATOYA Potassium Chloride (Potassium Chloride Crtab 20 Meq Tabcr) 40 meq PO NOW STA Stop: 05/28/22 14:10 Last Admin: 05/28/22 14:38 Dose: 40 meq Documented By: LATOYA Imaging Data Radiologist's Impression: Chest X-Ray 05/28/22 11:52 XR chest 1V portable CLINICAL HISTORY: sob TECHNIQUE: Single frontal radiograph of the chest was obtained. Comparison: Comparison is made to chest radiograph 05/24/2022 FINDINGS: No lines and tubes are seen. The cardiomediastinal silhouette is normal. Lungs are underinflated but clear. No evidence of pleural effusion or pneumothorax. IMPRESSION: No acute abnormalities and in particular no radiographic evidence of pneumonia. ACT 112: Negative or not required by law. Electronically signed by: Nico Denis M.D. 05/28/2022 1:02 PM Discharge Plan Visit Data Chief Complaint: Shortness of Breath/Dyspnea Stated Complaint: SHORTNESS OF BREATH ED Provider: Santos Liang Discharge Problem: Dyspnea on minimal exertion, Pulmonary fibrosis, Bronchitis due to human metapneumovirus (hMPV), Hypoxia, Hypokalemia, Hypomagnesemia Patient Disposition: Admitted As Inpatient Discharge Instructions Interventions: ED Discharge Assessment Last Done: 05/28/22 17:20
--- NOTE | 2022-05-28 16:09 | History & Physical Report ---
Date of Service May 28, 2022 Assessment & Plan (1) Acute respiratory failure with hypoxia: Plan: 67 yo w/ recent dx of human metapneumovirus presenting with acute hypoxic respiratory failure likely d/t bronchitis in setting of pulmonary fibrosis - Admit to med tele due to tachycardia - Regular diet ordered - VS q floor protocol - Continue supplemental O2 with goal pulse ox ~92% - Methylprednisolone 40mg IV q8, Mucinex 1200mg BID, Duonebs QIDR and q2 prn dyspnea/wheezing - Patient will need a nebulizer upon discharge home - Complete course of Doxycycline 100mg BID that was prescribed - she is to complete it tomorrow - Add flutter valve QID - Procalcitonin ordered/pending - but ultimately is not going to change treatment (2) Hypokalemia: Plan: Acute/unstable - Reviewed chemistry panel, potassium 3.2 - Replacement has been ordered in ED with KCl 10meq IVx1 and KCl 40meq POx1 - Repeat chemistry panel in the AM (3) Hypomagnesemia: Plan: Acute/unstable - Reviewed magnesium level, low at 1.6 - Supplementation has been ordered, goal ~2.0 in light of her paf - Repeat level in AM, will start on oral supplementation (4) Atrial fibrillation: Plan: - Paroxysmal, chronic/stable - Continue Metoprolol Succinate 100mg daily - Continue Xarelto (5) Pulmonary fibrosis: Plan: Chronic/stable secondary to scleroderma - Follows with [facility] [place] - Dr. Miller - Continue hydroxychloroquine, nintedanib, and mycophenolate (6) Hypertension: Plan: Chronic/stable - Continue Metoprolol, Spironolactone, and HCTZ (7) GERD (gastroesophageal reflux disease): Plan: Chronic/stable - Continue PPI (8) Decubitus skin ulcer: Plan: Chronic, stage II, present on admission - Offload - Optifoam - may consider portfolio management marketing consult Plan Patient is on Xarelto which will provide adequate DVT ppx. Above plan of care has been d/w Dr. Mcfarlane who has also seen and evaluated this patient. Further orders will be implemented as warranted. History of Present Illness Chief Complaint: Shortness of breath Primary Care Provider: Marcia Clemente MD Michelle Mcnair is a 67 yo WF with a pmhx of pulmonary fibrosis who is not on chronic oxygen therapy and was recently hospitalized 05/21 through 05/24 for re spiratory distress and was found to have human metapneumovirus. She was provided supportive care with neb treatments, mucinex, and steroids, improved and was discharged home. Unfortunately since her discharge, she has continued to have cough, mild wheezing, and worsening dyspnea with exertion. She is unsure of any fever, denies chills. Her cough has been intermittently productive. She was seen by her PCP today and there was concern for worsening symptoms and was subsequently referred back to the ER. Her work up in the ER demonstrated a normal CXR, no leukocytosis, and afebrile. She has a potassium of 3.2 and a magnesium level of 1.6. She was ordered an hour long Duoneb and unfortunately, despite that, continues to have oxygen desaturation (85%) with ambulation and still significantly short of breath with exertion. Her magnesium and potassium were supplemented and she has been referred to the hospitalist service for admission. Allergies Allergy/AdvReac Type Severity Reaction Status Date / Time simvastatin [From Zocor] Allergy Intermediate "made me Verified 05/28/22 17:05 pass out" ibuprofen Allergy Mild stomach Verified 05/28/22 17:05 pain naproxen [From Aleve] Allergy Mild STOMACH Verified 05/28/22 17:05 PAIN oxycodone [From Percocet] Allergy Mild stomach Verified 05/28/22 17:05 pain oyster extract AdvReac Gastrointestinal Verified 05/28/22 17:05 Upset scallops AdvReac Gastrointestinal Verified 05/28/22 17:05 Upset Home Medications Medication Instructions Recorded Confirmed Type tramadol 37.5 mg-acetaminophen 325 1 tab PO QID PRN pain #30 tabs 11/14/18 05/28/22 Rx mg tablet triamcinolone acetonide 55 mcg 2 sprays intranasal DAILY #33.8 mL 11/14/18 05/28/22 Rx nasal spray aerosol (Nasacort) hydroxychloroquine 200 mg tablet 400 mg PO QPM 02/23/19 05/28/22 History rivaroxaban 20 mg tablet (Xarelto) 20 mg PO QPM 02/23/19 05/28/22 History lactase 3,000 unit tablet 3,000 units PO QID PRN Abdominal 05/08/19 05/28/22 History Discomfort multivitamin 1 tab PO QAM 05/08/19 05/28/22 History metoprolol succinate 100 mg 100 mg PO QPM 04/25/20 05/28/22 History tablet,extended release 24 hr albuterol sulfate 90 mcg/actuation 1 puff inhalation Q6H PRN 10/28/20 05/28/22 Rx aerosol inhaler (ProAir HFA) shortness of breath or wheezing #8 grams fluticasone propionate 115 2 puff inhalation BID #12 grams 10/28/20 05/28/22 Rx mcg-salmeterol 21 mcg/actuation HFA inhaler (Advair HFA) Saccharomyces boulardii 250 mg 250 mg PO QAM 04/28/21 05/28/22 History capsule (Digest Probiotic (S.boulardii)) calcium carbonate 500 mg calcium 500 mg PO QAM 04/28/21 05/28/22 History (1,250 mg) tablet cetirizine 10 mg capsule (Zyrtec) 10 mg PO QAM 04/28/21 05/28/22 History fzyhnyik-jao-NX 200 mcg-vit K 15 1 tab PO QPM 04/28/21 05/28/22 History mcg-lycope 150 qte-qeqlif-uanh tablet (Ocuvite Eye Plus Multi) omega 8-xeo-opm-fish oil 1,000 mg 1 cap PO QAM 04/28/21 05/28/22 History (120 mg-180 mg) capsule (Fish Oil) omeprazole 40 mg capsule,delayed 40 mg PO QAM 04/28/21 05/28/22 History release vitamin B complex-folic acid 50 1 tab PO QPM 04/28/21 05/28/22 History mcg tablet nintedanib 150 mg capsule (Ofev) 150 mg PO Q12H #180 caps 11/17/21 05/28/22 Rx spironolactone 25 mg tablet 25 mg PO DAILY 03/29/22 05/28/22 History doxycycline hyclate 100 mg capsule 100 mg PO BID #10 caps 05/24/22 05/28/22 Rx guaifenesin 600 mg tablet, 1,200 mg PO Q12 #14 tabs 05/24/22 05/28/22 Rx extended release 12 hr (Mucinex) pfpaw-e-jttcivqnnqwhn 450 unit 450 unit PO BIDWMEAL PRN .abd 05/28/22 05/28/22 History disintegrating tablet (Beano) bloating cyanocobalamin (vitamin B-12) 500 500 mcg PO DAILY 05/28/22 05/28/22 History mcg tablet fluticasone 250 mcg-salmeterol 50 1 inh inhalation BID 05/28/22 05/28/22 History mcg/dose blistr powdr for inhalation (Advair Diskus) hydrochlorothiazide 25 mg tablet 12.5 mg PO DAILY 05/28/22 05/28/22 History lfxely-mrojhpmt-comfyje 1 cap PO TID 05/28/22 05/28/22 History 6,000-19,000-30,000 unit capsule,delayed rel (Creon) mycophenolate mofetil 500 mg tablet 500 mg PO BID 05/28/22 05/28/22 History prednisolone acetate 1 % eye 0 drp OPB QAM 05/28/22 05/28/22 History drops,suspension prednisolone acetate 1 % eye 0 drp OPL QPM 05/28/22 05/28/22 History drops,suspension rivaroxaban 20 mg tablet (Xarelto) 20 mg PO QPM 05/28/22 05/28/22 History simethicone 80 mg chewable tablet 80 mg PO DIRECTED PRN 05/28/22 05/28/22 History .gas/bloating sucralfate 1 gram tablet 1 g PO ACHS PRN Acid Reflux 05/28/22 05/28/22 History Past Med/Surg History Medical History Asthma inhalers daily/prn Atrial fibrillation on xarelto follows with Dr. Bustamante Chronic back pain Chronic diarrhea Gastroparesis Hypertension On anticoagulant therapy xarelto daily Osteoarthritis Pulmonary fibrosis Raynaud's syndrome Scleroderma Surgical History History of benign breast biopsy History of bilateral cataract extraction History of cardiac radiofrequency [place] [facility] [place] of cholecystectomy History of colonoscopy History of dilatation and curettage History of esophagogastroduodenoscopy (EGD) History of gastric bypass raymundo-en-y History of hand surgery finger surgery History of hernia repair History of surgery Mutiple GI procedures for blocked bowel. History of tooth extraction full upper History of total right knee replacement (TKR) Status post fine needle biopsy on thyroid--all benign Family History Father Hearing loss Brother Hearing loss Other Cancer Heart disease Hypertension No family history of adverse response to anesthesia No family history of bleeding disorder Stroke Social History Smoking Status: Never smoker Second Hand Exposure: No; Hx Alcohol Use: No Hx Substance Use: No Preferred Language: Hebrew Communication Ability: Effective Machine Pan Greaser Required: No Beliefs That Will Affect Care: None marital status: Single Current Living Situation: Alone current occupational status: retired Other Information That Helps Us Care for You: No Feels Safe at Home: Yes Safety Concerns: Feels Safe At This Time Diet Comment: gastroparesis caffeine: Yes Assistive Devices: Cane, Denture - Upper and Glasses Physical Exam Physical Exam: GENERAL: 67 yo WF Well-developed, well-nourished. NAD. LUNGS: Fair air exchange. Scattered expiratory wheezes and rhonchi noted. CARDIOVASCULAR: Tachycardic but regular, no m/g/r SKIN: small pea seize area of superficial skin breakdown on the superior aspect of the left buttocks Results & Data Results & Data Vital Signs (Past 12 Hours) Vital Signs Temp Pulse Pulse Pulse Resp Resp BP 05/28/22 15:22 113 H 22 05/28/22 15:17 05/28/22 15:15 132 H 24 05/28/22 15:00 121 H 20 130/72 05/28/22 14:30 125 H 25 H 115/68 05/28/22 14:00 122 H 18 121/77 05/28/22 13:30 114 H 20 120/77 05/28/22 13:00 87 21 126/76 05/28/22 12:30 110 H 21 115/75 05/28/22 12:00 112 H 21 130/73 05/28/22 13:15 110 H 22 05/28/22 11:53 84 27 H 117/61 05/28/22 11:54 112 H 18 05/28/22 11:18 05/28/22 11:18 36.7 C 130 H 16 05/28/22 11:18 36.7 C 130 H 16 133/86 BP Pulse Ox Pulse Ox O2 Del Method O2 Flow Rate 05/28/22 15:22 93 Nasal Cannula 2 05/28/22 15:17 88 L Room Air 05/28/22 15:15 85 L Room Air 05/28/22 15:00 93 Room Air 05/28/22 14:30 97 Room Air 05/28/22 14:00 99 Room Air 05/28/22 13:30 100 Room Air 05/28/22 13:00 93 Room Air 05/28/22 12:30 05/28/22 12:00 92 Room Air 05/28/22 13:15 94 Room Air 05/28/22 11:53 94 Room Air 05/28/22 11:54 94 Room Air 05/28/22 11:18 94 Room Air 05/28/22 11:18 133/86 94 Room Air 05/28/22 11:18 94 Room Air Laboratory Results 05/28/22 11:46 05/28/22 12:48 Diagnostic Findings Chest X-Ray 05/28/22 11:52 XR chest 1V portable CLINICAL HISTORY: sob TECHNIQUE: Single frontal radiograph of the chest was obtained. Comparison: Comparison is made to chest radiograph 05/24/2022 FINDINGS: No lines and tubes are seen. The cardiomediastinal silhouette is normal. Lungs are underinflated but clear. No evidence of pleural effusion or pneumothorax. IMPRESSION: No acute abnormalities and in particular no radiographic evidence of pneumonia. ACT 112: Negative or not required by law. Electronically signed by: Nico Denis M.D. 05/28/2022 1:02 PM Code Status & VTE Plan Code Status Full Supervising Physician Co-Signing Physician Notes Patient seen and examined, chart reviewed, case discussed with Margoth Blanco PA-C and I agree with the assessment and plan as above except as otherwise noted Labs and images reviewed 67-year-old female with past medical history of pulmonary fibrosis without baseline hypoxia who presents with human metapneumovirus and shortness of breath. She is getting of cough, wheezing, exertional dyspnea. No fever/chills/sweats. At bedside she is saturating normally while on oxygen, but has had intermittent desaturations post nebulizer. At time of admission breathing is unlabored with symmetrical chest rise. Agree with supportive respiratory care, can continue methylprednisolone for wheezing in the setting of additional underlying restrictive lung disease, low suspicion for bacterial superinfection and will defer additional antibiotics at this time. She is anticoagulated for A-fib and adequately rate controlled. Continue Xarelto and metoprolol. Agree with recommendations and management above. PG Care Time/CCT Total # of Minutes Spent Total Time Spent with Patient: Total time spent is greater than 50% in coordination of care (as documented) at patient's floor/unit and/or counseling patient: Coding Level of Care Code 99053 INT INP/OBS CARE 3/75MIN Diagnoses Acute respiratory failure with hypoxia J96.01 Hypokalemia E87.6 Hypomagnesemia E83.42 Atrial fibrillation I48.91 Pulmonary fibrosis J84.10 Hypertension I10 GERD (gastroesophageal reflux disease) K21.9 Decubitus skin ulcer L89.90
[2022-05-28] MEDS ORDERED: ALUMINUM/MAGNESIUM SUSP 30 ML UDC PO PRN (18:14)
[2022-05-28] MEDS ORDERED: SUCRALFATE 1 GM TAB PO PRN (18:14)
[2022-05-28] MEDS ORDERED: NON-FORMULARY MEDICATION (Nintedanib [Ofev] 150 mg capsule) PO SCH (18:14)
[2022-05-28] MEDS ORDERED: POLYETHYLENE (MIRALAX) 17 GM PACK PO PRN (18:14)
[2022-05-28] MEDS ORDERED: ONDANSETRON INJ 2 MG/ML 2 ML VIAL IV PRN (18:14)
[2022-05-28] MEDS ORDERED: MAGNESIUM HYDROXIDE SUSP 30 ML UDC PO PRN (18:14)
[2022-05-28] MEDS: ALBUT/IPRATROP 3MG/0.5MG NEB 3 ML VIAL NEB SCH (19:18)
[2022-05-28] MEDS: FLUTICASONE/VILANTEROL 200/25MCG 14 PUFFS/INHALER INH SCH (19:26)
[2022-05-28] MEDS: methylPREDNISolone 40 MG in SYRINGE 0 ML IV SCH (19:26)
[2022-05-28] MEDS: DOXYCYCLINE HYCLATE 100 MG CAP PO SCH (20:17)
[2022-05-28] MEDS: guaiFENesin 600 MG TABCR PO SCH (20:17)
[2022-05-28] MEDS: HYDROXYCHLOROQUINE SULFATE 200 MG TAB PO SCH (20:18)
[2022-05-28] MEDS: PANCREAZE (LIPASE 10,500U) CAP PO SCH (20:18)
[2022-05-28] MEDS: METOPROLOL SUCC 50MG EXT REL TAB PO SCH (20:18)
[2022-05-28] MEDS: MYCOPHENOLATE MOFETIL 250 MG CAP PO SCH (20:18)
[2022-05-28] MEDS: prednisoLONE acetate 1% OP SUSP 5 ML BTL OPL SCH (20:19)
[2022-05-28] MEDS: RIVAROXABAN 20 MG TAB PO SCH (20:19)
[2022-05-29] MEDS: methylPREDNISolone 40 MG in SYRINGE 0 ML IV SCH ×2 (03:04→14:48)
[2022-05-29 07:00] LABS: Hematocrit (blood only) 35.2 % (37.0-47.0); Immature Granulocytes # (auto) 0.03 K/uL (0.01-0.20); Immature Granulocytes % (auto) 0.5 %; Lymphocytes # (auto) 0.75 K/uL (1.2-3.4); Lymphocytes % (auto) 12.2 %; Mean Corpuscular Hemoglobin 34.8 pg (25.0-34.0); Mean Corpuscular Hgb Conc 34.1 g/dL (32.0-36.0); Mean Platelet Volume 10.2 fL (9.4-12.4); Monocytes % (auto) 3.2 %; Neutrophils # (auto) 5.19 K/uL (1.40-6.50); Neutrophils % (auto) 84.1 %; Platelet Count 310 K/uL (130-400); RDW Coefficient of Variation 13.2 % (11.5-14.5); RDW Standard Deviation 49.6 fL (36.4-46.3); Red Blood Count 3.45 M/uL (4.20-5.40); White Blood Count 6.17 K/ul (4.8-10.8)
[2022-05-29 07:25] LABS: BUN Creatinine Ratio 28.1 (10-20); Calcium 8.4 mg/dl (8.6-10.3); Creatinine Clr Calc Pharmacy 178.1 ml/min; Est GFR (African American) 133.5 ml/min; Est GFR (Non-African American) 115.2 ml/min; Magnesium 1.9 mg/dl (1.7-2.4); Potassium 4.3 mmol/L (3.5-5.1)
[2022-05-29] MEDS: ALBUT/IPRATROP 3MG/0.5MG NEB 3 ML VIAL NEB SCH ×4 (07:34→19:23)
[2022-05-29] MEDS: hydroCHLOROthiazide 25 MG TAB PO SCH (09:24)
[2022-05-29] MEDS: DOXYCYCLINE HYCLATE 100 MG CAP PO SCH ×2 (09:25→20:51)
[2022-05-29] MEDS: CALCIUM CARBONATE 500 MG CHEWABLE TAB PO SCH (09:25)
[2022-05-29] MEDS: CETIRIZINE HCL 10 MG TABLET PO SCH (09:25)
[2022-05-29] MEDS: SACCHAROMYCES BOULARDII 250 MG CAP PO SCH (09:25)
[2022-05-29] MEDS: guaiFENesin 600 MG TABCR PO SCH ×2 (09:25→20:50)
[2022-05-29] MEDS: SPIRONOLACTONE 25 MG TAB PO SCH (09:26)
[2022-05-29] MEDS: MYCOPHENOLATE MOFETIL 250 MG CAP PO SCH ×2 (09:26→20:50)
[2022-05-29] MEDS: PANTOprazole 40 MG TAB PO SCH (09:26)
[2022-05-29] MEDS: FLUTICASONE/VILANTEROL 200/25MCG 14 PUFFS/INHALER INH SCH (09:26)
[2022-05-29] MEDS: PANCREAZE (LIPASE 10,500U) CAP PO SCH ×3 (09:26→20:51)
[2022-05-29] MEDS: prednisoLONE acetate 1% OP SUSP 5 ML BTL OPB SCH (09:26)
--- NOTE | 2022-05-29 10:29 | Hospitalist Progress Note ---
Date of Service May 29, 2022 Assessment & Plan (1) Acute respiratory failure with hypoxia: Plan: 67 yo w/ recent dx of human metapneumovirus presenting with acute hypoxic respiratory failure likely d/t bronchitis in setting of pulmonary fibrosis Acute/unstable - Regular diet ordered - VS q floor protocol - Continue supplemental O2 with goal pulse ox ~92%, currently on 1.5L of O2 with sat of 95% - Methylprednisolone 40mg IV q12, Mucinex 1200mg BID, Duonebs QIDR and q2 prn dyspnea/wheezing - Patient will need a nebulizer upon discharge home - Complete course of Doxycycline 100mg BID that was prescribed - she is to complete it today (05/29) - Continue flutter valve QID (2) Hypokalemia: Plan: Acute/stable/resolved - Reviewed chemistry panel today, potassium normalized at 4.3 - No further replacement needed (3) Hypomagnesemia: Plan: Acute/stable/resolved - Reviewed magnesium level, normal today at 1.9 - Supplementation has been ordered, goal ~2.0 in light of her paf - Start on Mag Ox 400mg BID (4) Atrial fibrillation: Plan: - Paroxysmal, chronic/stable - Continue Metoprolol Succinate 100mg daily - Continue Xarelto (5) Pulmonary fibrosis: Plan: Chronic/stable secondary to scleroderma - [place] [facility] [place]. Miller - Continue hydroxychloroquine, nintedanib, and mycophenolate (6) Hypertension: Plan: Chronic/stable - Continue Metoprolol, Spironolactone, and HCTZ (7) GERD (gastroesophageal reflux disease): Plan: Chronic/stable - Continue PPI (8) Decubitus skin ulcer: Plan: Chronic, stage II, present on admission - Offload - Optifoam - may consider engraver optical frames consult Plan Patient is on Xarelto which will provide adequate DVT ppx. Plan to be d/w Dr. Gongora Admission and Anticipated Discharge Date Admission Date: May 28, 2022 Supervising Physician Co-Signing Physician Notes PA Supervision Note: I personally saw and examined the patient. I verified all rizzo points and agree with JAKUB Blanco with the following exceptions and/or additions: none Subjective Patient seen on daily rounds this morning. Reports improvement in breathing but still short of breath with minimal exertion such as sitting up at the edge of the bed. Asked if she could have cough medication, cough is dry and worse when she moves. Denies cp, fever/chills. Physical Exam Physical Exam: GENERAL: 67 yo WF Well-developed, well-nourished. NAD. LUNGS: Improved air exchange. Nonlabored. Crackles in RLL, few end exp wheezes R>L CARDIOVASCULAR: Tachycardic but regular, no m/g/r SKIN: small pea seize area of superficial skin breakdown on the superior aspect of the left buttocks Results & Data Results & Data Vital Signs (Past 12 Hours) Vital Signs Temp Pulse Pulse Resp BP BP Pulse Ox 05/29/22 08:04 36.6 C 88 18 121/68 95 05/29/22 07:48 70 05/29/22 07:34 73 18 94 05/29/22 05:17 75 05/29/22 03:40 36.4 C L 77 18 118/72 96 05/28/22 23:45 80 05/28/22 23:09 36.4 C L 106 H 16 120/81 97 05/28/22 22:52 O2 Del Method O2 Flow Rate 05/29/22 08:04 Nasal Cannula 1.5 05/29/22 07:48 05/29/22 07:34 Nasal Cannula 1.5 05/29/22 05:17 05/29/22 03:40 Nasal Cannula 2 05/28/22 23:45 05/28/22 23:09 Nasal Cannula 2 05/28/22 22:52 Nasal Cannula 2 Laboratory Results 05/29/22 06:05 05/29/22 06:05 PG Care Time/CCT Total # of Minutes Spent Total Time Spent with Patient: Total time spent is greater than 50% in coordination of care (as documented) at patient's floor/unit and/or counseling patient: Coding Level of Care Code 45187 SUB INP/OBS CARE 3/50MIN Diagnoses Acute respiratory failure with hypoxia J96.01 Hypokalemia E87.6 Hypomagnesemia E83.42 Atrial fibrillation I48.91 Pulmonary fibrosis J84.10 Hypertension I10 GERD (gastroesophageal reflux disease) K21.9 Decubitus skin ulcer L89.90
[2022-05-29] MEDS: BENZONATATE 100 MG CAPSULE PO PRN (11:33)
[2022-05-29] MEDS ORDERED: LACTASE 3000 UNIT TAB PO PRN (16:03)
[2022-05-29] MEDS: ACETAMINOPHEN 325 MG TAB PO PRN (20:49)
[2022-05-29] MEDS: RIVAROXABAN 20 MG TAB PO SCH (20:50)
[2022-05-29] MEDS: METOPROLOL SUCC 50MG EXT REL TAB PO SCH (20:50)
[2022-05-29] MEDS: HYDROXYCHLOROQUINE SULFATE 200 MG TAB PO SCH (20:51)
[2022-05-29] MEDS: MAGNESIUM OXIDE 400 MG TAB PO SCH (20:51)
[2022-05-29] MEDS: prednisoLONE acetate 1% OP SUSP 5 ML BTL OPL SCH (20:52)
[2022-05-30] MEDS: BENZONATATE 100 MG CAPSULE PO PRN (02:04)
[2022-05-30] MEDS: methylPREDNISolone 40 MG in SYRINGE 0 ML IV SCH (02:07)
[2022-05-30 06:13] LABS: Basophils # (auto) 0.01 K/uL (0-0.2); Basophils % (auto) 0.1 %; Hematocrit (blood only) 35.3 % (37.0-47.0); Hemoglobin 11.9 g/dl (12.0-16.0); Immature Granulocytes # (auto) 0.04 K/uL (0.01-0.20); Immature Granulocytes % (auto) 0.5 %; Lymphocytes # (auto) 0.84 K/uL (1.2-3.4); Lymphocytes % (auto) 9.5 %; Mean Corpuscular Hemoglobin 34.3 pg (25.0-34.0); Mean Corpuscular Hgb Conc 33.7 g/dL (32.0-36.0); Mean Corpuscular Volume 101.7 fL (80.0-100.0); Mean Platelet Volume 9.9 fL (9.4-12.4); Monocytes # (auto) 0.26 K/uL (0.11-0.59); Monocytes % (auto) 2.9 %; Neutrophils # (auto) 7.72 K/uL (1.40-6.50); Platelet Count 330 K/uL (130-400); RDW Coefficient of Variation 13.5 % (11.5-14.5); RDW Standard Deviation 50.2 fL (36.4-46.3); Red Blood Count 3.47 M/uL (4.20-5.40); White Blood Count 8.87 K/ul (4.8-10.8)
[2022-05-30 06:38] LABS: BUN Creatinine Ratio 37.1 (10-20); Calcium 8.1 mg/dl (8.6-10.3); Creatinine Clr Calc Pharmacy 162.9 ml/min; Est GFR (African American) 129.6 ml/min; Est GFR (Non-African American) 111.8 ml/min
[2022-05-30] MEDS: ALBUT/IPRATROP 3MG/0.5MG NEB 3 ML VIAL NEB SCH ×4 (07:25→19:13)
[2022-05-30] MEDS: prednisoLONE acetate 1% OP SUSP 5 ML BTL OPB SCH (08:53)
[2022-05-30] MEDS: FLUTICASONE/VILANTEROL 200/25MCG 14 PUFFS/INHALER INH SCH (08:53)
[2022-05-30] MEDS: hydroCHLOROthiazide 25 MG TAB PO SCH (08:53)
[2022-05-30] MEDS: MYCOPHENOLATE MOFETIL 250 MG CAP PO SCH ×2 (08:54→20:02)
[2022-05-30] MEDS: guaiFENesin 600 MG TABCR PO SCH ×2 (08:54→20:01)
[2022-05-30] MEDS: CALCIUM CARBONATE 500 MG CHEWABLE TAB PO SCH (08:54)
[2022-05-30] MEDS: SACCHAROMYCES BOULARDII 250 MG CAP PO SCH (08:54)
[2022-05-30] MEDS: PANTOprazole 40 MG TAB PO SCH (08:54)
[2022-05-30] MEDS: CETIRIZINE HCL 10 MG TABLET PO SCH (08:54)
[2022-05-30] MEDS: MAGNESIUM OXIDE 400 MG TAB PO SCH ×2 (08:54→20:02)
[2022-05-30] MEDS: SPIRONOLACTONE 25 MG TAB PO SCH (08:54)
[2022-05-30] MEDS: PANCREAZE (LIPASE 10,500U) CAP PO SCH ×3 (08:54→20:01)
--- NOTE | 2022-05-30 12:15 | Hospitalist Progress Note ---
Date of Service May 30, 2022 Assessment & Plan (1) Acute respiratory failure with hypoxia: Plan: 67 yo w/ recent dx of human metapneumovirus presenting with acute hypoxic respiratory failure likely d/t bronchitis in setting of pulmonary fibrosis Acute/unstable - Continue supplemental O2 with goal pulse ox ~92%, currently on 2L of O2 with sat of 98% - Methylprednisolone 40mg IV daily, Mucinex 1200mg BID, Duonebs QIDR and q2 prn dyspnea/wheezing - Patient will need a nebulizer upon discharge home - Complete course of Doxycycline 100mg BID that was prescribed - completed 05/29 - Continue flutter valve QID - 2-step pulse ox study with RT ordered to determine needs for home O2 - Ordered Tessalon perles 200mg TID prn but no relief, will change to Robitussin DM (2) Hypokalemia: Plan: Acute/stable/resolved - Reviewed chemistry panel today, potassium at 4.0 - No further replacement needed (3) Hypomagnesemia: Plan: Acute/stable/resolved - Reviewed magnesium level, normal following replacement at 1.9 - Started on daily oral supplementation w/ Mag Ox 400mg BID (4) Atrial fibrillation: Plan: - Paroxysmal, chronic/stable - Continue Metoprolol Succinate 100mg daily - Continue Xarelto (5) Pulmonary fibrosis: Plan: Chronic/stable secondary to scleroderma - Follows with [facility] [place] [facility] - Dr. Miller - Continue hydroxychloroquine, nintedanib, and mycophenolate - Cautious use of corticosteroids in setting of systemic scleroderma d/t risk of renal crisis (6) Hypertension: Plan: Chronic/stable - Continue Metoprolol, Spironolactone, and HCTZ (7) GERD (gastroesophageal reflux disease): Plan: Chronic/stable - Continue PPI (8) Decubitus skin ulcer: Plan: Chronic, stage II, present on admission - Offload - Optifoam - may consider digital account executive consult Plan Patient is on Xarelto which will provide adequate DVT ppx. Reviewed CBC and BMP today. No need to repeat tomorrow. Transition to med/surg (d/c tele). Two-step to determine home O2 needs. Will need nebulizer upon d/c. Tentatively ready for DC tomorrow. Plan to be d/w Dr. Karu. Admission and Anticipated Discharge Date Admission Date: May 28, 2022 Subjective Patient seen on rounds this morning. She reports breathing each day seems to improve but still winded with exertion. Tessalon perles not helping persistent dry cough. No fever/chills. Physical Exam Physical Exam: GENERAL: 67 yo WF Well-developed, well-nourished. NAD. LUNGS: Improved air exchange. Nonlabored. few end exp wheezes R>L CARDIOVASCULAR: regular, no m/g/r SKIN: small pea seize area of superficial skin breakdown on the superior aspect of the left buttocks Results & Data Results & Data Vital Signs (Past 12 Hours) Vital Signs Temp Pulse Resp BP Pulse Ox O2 Del Method O2 Flow Rate 05/30/22 09:00 Nasal Cannula 1.5 05/30/22 10:55 95 H 16 98 Nasal Cannula 2 05/30/22 10:45 36.5 C 82 18 115/68 94 Nasal Cannula 1.5 05/30/22 07:43 36.4 C L 80 18 109/66 93 Nasal Cannula 1 05/30/22 07:25 83 18 96 Nasal Cannula 1 05/30/22 03:22 36.5 C 80 20 114/73 96 Nasal Cannula 1.5 Laboratory Results 05/30/22 05:39 05/30/22 05:39 PG Care Time/CCT Total # of Minutes Spent Total Time Spent with Patient: Total time spent is greater than 50% in coordination of care (as documented) at patient's floor/unit and/or counseling patient: Coding Level of Care Code 02902 SUB INP/OBS CARE 3/50MIN Diagnoses Acute respiratory failure with hypoxia J96.01 Hypokalemia E87.6 Hypomagnesemia E83.42 Atrial fibrillation I48.91 Pulmonary fibrosis J84.10 Hypertension I10 GERD (gastroesophageal reflux disease) K21.9 Decubitus skin ulcer L89.90
[2022-05-30] MEDS: guaiFENesin/DEXTROM SYRUP 200MG/20MG 10ML UDC PO PRN ×2 (15:24→21:52)
[2022-05-30] MEDS: HYDROXYCHLOROQUINE SULFATE 200 MG TAB PO SCH (20:00)
[2022-05-30] MEDS: METOPROLOL SUCC 50MG EXT REL TAB PO SCH (20:00)
[2022-05-30] MEDS: RIVAROXABAN 20 MG TAB PO SCH (20:00)
[2022-05-30] MEDS: prednisoLONE acetate 1% OP SUSP 5 ML BTL OPL SCH (20:03)
[2022-05-30] MEDS: ACETAMINOPHEN 325 MG TAB PO PRN (21:52)
[2022-05-31] MEDS: ACETAMINOPHEN 325 MG TAB PO PRN (07:31)
[2022-05-31] MEDS: guaiFENesin/DEXTROM SYRUP 200MG/20MG 10ML UDC PO PRN (08:37)
[2022-05-31] MEDS: CALCIUM CARBONATE 500 MG CHEWABLE TAB PO SCH (08:37)
[2022-05-31] MEDS: hydroCHLOROthiazide 25 MG TAB PO SCH (08:38)
[2022-05-31] MEDS: SPIRONOLACTONE 25 MG TAB PO SCH (08:38)
[2022-05-31] MEDS: PANTOprazole 40 MG TAB PO SCH (08:38)
[2022-05-31] MEDS: MAGNESIUM OXIDE 400 MG TAB PO SCH (08:39)
[2022-05-31] MEDS: MYCOPHENOLATE MOFETIL 250 MG CAP PO SCH (08:39)
[2022-05-31] MEDS: PANCREAZE (LIPASE 10,500U) CAP PO SCH ×2 (08:40→11:32)
[2022-05-31] MEDS: guaiFENesin 600 MG TABCR PO SCH (08:40)
[2022-05-31] MEDS: CETIRIZINE HCL 10 MG TABLET PO SCH (08:40)
[2022-05-31] MEDS: SACCHAROMYCES BOULARDII 250 MG CAP PO SCH (08:41)
[2022-05-31] MEDS: prednisoLONE acetate 1% OP SUSP 5 ML BTL OPB SCH (08:41)
[2022-05-31] MEDS: FLUTICASONE/VILANTEROL 200/25MCG 14 PUFFS/INHALER INH SCH (08:41)
[2022-05-31] MEDS ORDERED: methylPREDNISolone 40 MG in SYRINGE 0 ML IV SCH (09:00)
[2022-05-31] MEDS: ALBUT/IPRATROP 3MG/0.5MG NEB 3 ML VIAL NEB SCH ×2 (09:18→12:43)
--- NOTE | 2022-05-31 10:31 | Discharge Summary ---
Date of Service May 31, 2022 Admission HPI Per Admitting Provider Michelle Mcnair is a 67 yo WF with a pmhx of pulmonary fibrosis who is not on chronic oxygen therapy and was recently hospitalized 05/21 through 05/24 for respiratory distress and was found to have human metapneumovirus. She was provided supportive care with neb treatments, mucinex, and steroids, improved and was discharged home. Unfortunately since her discharge, she has continued to have cough, mild wheezing, and worsening dyspnea with exertion. She is unsure of any fever, denies chills. Her cough has been intermittently productive. She was seen by her PCP today and there was concern for worsening symptoms and was subsequently referred back to the ER. Her work up in the ER demonstrated a normal CXR, no leukocytosis, and afebrile. She has a potassium of 3.2 and a magnesium level of 1.6. She was ordered an hour long Duoneb and unfortunately, despite that, continues to have oxygen desaturation (85%) with ambulation and still significantly short of breath with exertion. Her magnesium and potassium were supplemented and she has been referred to the hospitalist service for admission. Principal Diagnosis 1. Acute respiratory failure with hypoxia 2. Human metapneumovirus induced bronchitis 3. Hypokalemia - treated/resolved 4. Hypomagnesemia - treated/resolved Discharge Exam GENERAL: 67 yo WF well-developed, well-nourished. NAD. LUNGS: Improved air exchange. Nonlabored. crackles RLL CARDIOVASCULAR: regular, no m/g/r SKIN: small pea seize area of superficial skin breakdown on the superior aspect of the left buttocks Discharge Data Allergies Allergy/AdvReac Type Severity Reaction Status Date / Time simvastatin [From Zocor] Allergy Intermediate "made me Verified 05/28/22 17:05 pass out" ibuprofen Allergy Mild stomach Verified 05/28/22 17:05 pain naproxen [From Aleve] Allergy Mild STOMACH Verified 05/28/22 17:05 PAIN oxycodone [From Percocet] Allergy Mild stomach Verified 05/28/22 17:05 pain oyster extract AdvReac Gastrointestinal Verified 05/28/22 17:05 Upset scallops AdvReac Gastrointestinal Verified 05/28/22 17:05 Upset Consultations 05/28/22 15:25 ED Decision to Admit Stat Ordered Studies Chest X-Ray 05/28/22 11:52 XR chest 1V portable CLINICAL HISTORY: sob TECHNIQUE: Single frontal radiograph of the chest was obtained. Comparison: Comparison is made to chest radiograph 05/24/2022 FINDINGS: No lines and tubes are seen. The cardiomediastinal silhouette is normal. Lungs are underinflated but clear. No evidence of pleural effusion or pneumothorax. IMPRESSION: No acute abnormalities and in particular no radiographic evidence of pneumonia. ACT 112: Negative or not required by law. Electronically signed by: Nico Denis M.D. 05/28/2022 1:02 PM Hospital Course (1) Acute respiratory failure with hypoxia: 67 yo w/ recent dx of human metapneumovirus presenting with acute hypoxic respiratory failure likely d/t bronchitis in setting of pulmonary fibrosis Acute/stable/resolved - Supplemental O2 provided with goal pulse ox ~92% - Methylprednisolone given 40mg IV q8h then reduced to BID followed by daily - Mucinex 1200mg BID and Duonebs QIDR and q2 prn dyspnea/wheezing - Completed course of Doxycycline 100mg BID that was prescribed on 05/29 - Continue flutter valve QID - 2-step pulse ox study with RT ordered to determine needs for home O2 - Two step completed - pt tolerated ambulation (although had to rest d/t fatigue) but no O2 needs with ambulation or at rest - Ordered Tessalon perles 200mg TID prn but no relief, changed to Robitussin DM - could use Delsym OTC upon d/c - Will rx tapering course of Prednisone to be started on 06/01 - Rx written for nebulizer + supplies and Duonebs to be used as directed (2) Hypokalemia: Acute/stable/resolved - Replaced on admission - No further replacement required during her hospitalization (3) Hypomagnesemia: Acute/stable/resolved - Replaced on admission with IV Mag Sulfate - Started on daily oral supplementation w/ Mag Ox 400mg BID (4) Atrial fibrillation: - Paroxysmal, chronic/stable - Continue Metoprolol Succinate 100mg daily - Continue Xarelto (5) Pulmonary fibrosis: Chronic/stable secondary to scleroderma - Follows with [facility] [place] Pulmonology - Dr. Miller - Continue hydroxychloroquine, nintedanib, and mycophenolate - Cautious use of corticosteroids in setting of systemic scleroderma d/t risk of renal crisis (6) Hypertension: Chronic/stable - Continue Metoprolol, Spironolactone, and HCTZ (7) GERD (gastroesophageal reflux disease): Chronic/stable - Continue PPI (8) Decubitus skin ulcer: Chronic, stage II, present on admission - Offload - Optifoam applied - Follow up with would care Plan Patient has improved with conservative measures. She is no longer experiencing respiratory failure. She is medically and hemodynamically stable for discharge with close follow up with her scientific research associate (has a scheduled appt with Dr. Miller in early June). F/u with pcp. Taper steroids and rx for nebulizer written, case management to fax to [employer] and should be delivered to patient's home. Above plan of care has been d/w Dr. Kaur who is in agreement. Total Time Total Time Spent Total Time Spent (In Minutes): 40 minutes Discharge Plan Discharge Items Patient Disposition: Home - Self-Care Reason For Visit: HYPOXIC RESPIRATORY FAILURE Discharge Diagnosis: low oxygen levels secondary to human metapneumovirus induced bronchitis Activity: As commented below Activity Comment: activity as tolerated, take frequent breaks Non-emergency contact: Primary Care Provider and Snowmaker Call non-emergency contact if: you have any medication questions Follow-up/Referrals: Marcia Clemente MD [Primary Care Provider] - 06/04/22 1:45 pm (Please arrive 15 minutes prior to appointment time. ) Diet: Regular Addtl Attending Provider Instructions: You were hospitalized due to worsening oxygen levels secondary to human metapneumovirus that was causing inflammation in your airways. You were kept on your course of Doxycycline and completed the course. You were provided breathing treatments, oxygen, steroids, and mucolytics. You have shown favorable response to treatment. You were taken for a walk this morning (05/31) with respiratory therapy and determined not to need oxygen at rest or with activity. You will be discharged home but will be arranged for a nebulizer to be delivered to your home. You will use this machine with Duonebs. You should continue using the Duonebs 3-4x per day over the next 3-4 days then you can change to using it as needed. You will continue on a Prednisone taper, next dose is due on 06/01/22. Take in the morning with food. DO NOT take any NSAID products while on the steroids including ibuprofen, motrin, aleve, advil. You have an appointment scheduled with your scientific research associate in June. Please keep this appointment. Follow up with your primary care provider within 1 week of discharge. If you have any questions or concerns following your discharge, please call the nonemergency number listed on your paperwork. In the event of a medical emergency, call 911. Pending Studies at Discharge: No Stand-Alone Forms: My [facility], Smoking Cessation Medications and DC Order Prescriptions: New ipratropium-albuterol 0.5 mg-3 mg(2.5 mg base)/3 mL solution for nebulization 3 ml inhalation QID PRN (Reason: wheezing/shortness of breath ) Qty: 180 0RF prednisone 10 mg tablet 10 mg PO DAILY Qty: 30 0RF Rx Instructions: 4 tabs po daily x 3 days, 3 tabs po daily x 3 days, 2 tabs po daily x 3 days, 1 tab po daily x 3 days then stop Continued Ofev 150 mg capsule 150 mg PO Q12H Qty: 180 3RF lactase 3,000 unit tablet 3,000 units PO QID PRN (Reason: Abdominal Discomfort) multivitamin Tablet 1 tab PO QAM albuterol sulfate [ProAir HFA] 90 mcg/actuation HFA aerosol inhaler 1 puff INH Q6H PRN (Reason: shortness of breath or wheezing) Qty: 8 0RF Advair HFA 115-21 mcg/actuation HFA aerosol inhaler 2 puff INH BID Qty: 12 3RF Rx Instructions: 90-day supply ( 3 inhalers ) with 3 refills triamcinolone acetonide [Nasacort] 55 mcg aerosol,spray 2 sprays INTNAS DAILY Qty: 33.8 0RF Rx Instructions: administer into each nostril tramadol-acetaminophen 37.5-325 mg tablet 1 tab PO QID PRN (Reason: pain) Qty: 30 0RF spironolactone 25 mg tablet 25 mg PO DAILY Xarelto 20 mg Tablet 20 mg PO QPM hydroxychloroquine 200 mg tablet 400 mg PO QPM metoprolol succinate 100 mg tablet extended release 24 hr 100 mg PO QPM vitamin B complex-folic acid 50 mcg Tablet 1 tab PO QPM omeprazole 40 mg capsule,delayed release(DR/EC) 40 mg PO QAM calcium carbonate 500 mg calcium (1,250 mg) tablet 500 mg PO QAM Saccharomyces boulardii [Digest Probiotic (S.boulardii)] 250 mg capsule 250 mg PO QAM Rx Instructions: swallow whole omega 6-tgm-abm-fish oil [Fish Oil] 1,000 mg (120 mg-180 mg) capsule 1 cap PO QAM Zyrtec 10 mg capsule 10 mg PO QAM Ocuvite Eye Plus Multi 200-15-150 mcg tablet 1 tab PO QPM Rx Instructions: administer with a meal and a large glass of water guaifenesin [Mucinex] 600 mg Tablet Extended Release 12hr 1,200 mg PO Q12 Qty: 14 0RF hydrochlorothiazide 25 mg tablet 12.5 mg PO DAILY Beano 450 unit Tablet,Disintegrating 450 unit PO BIDWMEAL PRN (Reason: .abd bloating) Creon 6,000-19,000 -30,000 unit capsule,delayed release(DR/EC) 1 cap PO TID Rx Instructions: do not exceed 10,000 unit/kg lipase per 24 hrs fluticasone propion-salmeterol [Advair Diskus] 250-50 mcg/dose Blister With Device 1 inh INHALATION BID sucralfate 1 gram Tablet 1 g PO ACHS PRN (Reason: Acid Reflux) mycophenolate mofetil 500 mg tablet 500 mg PO BID prednisolone acetate 1 % drops,suspension 0 drp OPB QAM prednisolone acetate 1 % drops,suspension 0 drp OPL QPM cyanocobalamin (vitamin B-12) 500 mcg Tablet 500 mcg PO DAILY simethicone 80 mg Tablet,Chewable 80 mg PO DIRECTED PRN (Reason: .gas/bloating) Discontinued doxycycline hyclate 100 mg capsule 100 mg PO BID Qty: 10 0RF Rx Instructions: alternate with Augmentum as directed Xarelto 20 mg tablet 20 mg PO QPM Admission Data Admit Date/Time: 05/28/22 16:00 Attending Provider: Zach Kaur Admit Provider: Win Mcfarlane Primary Care Provider: Marcia Clemente Other Providers: Win Mcfarlane Coding Level of Care Code 99285 INP/OBS DISCH >30 MIN Diagnoses Acute respiratory failure with hypoxia J96.01 Hypokalemia E87.6 Hypomagnesemia E83.42 Atrial fibrillation I48.91 Pulmonary fibrosis J84.10 Hypertension I10 GERD (gastroesophageal reflux disease) K21.9 Decubitus skin ulcer L89.90
[2022-05-31] MEDS: BENZONATATE 100 MG CAPSULE PO PRN (11:33)
[2022-05-31] MEDS ORDERED: RIVAROXABAN 20 MG TAB PO SCH (21:00)
== END 2022-05-31 14:25 | disposition home or self-care (01) | DRG 189 ==
LOC: ED 11:15 → 2N 16:00 → SUATTDRO 16:00 → 2N 17:20 → 2W 05-29 04:56

== ENCOUNTER 2023-01-28 09:38 | Inpatient (IN) ==
--- NOTE | 2023-01-27 09:34 | Anesthesiology Consultation ---
Date of Service January 27, 2023 Assessment & Plan (1) Encounter for pre-operative examination: Plan - acceptable to proceed pending review of labs, fluid orders and patient by anesthesiologist renay PEREZ. - patient had labs done 01/27/23 however at off site lab and crime lab technician won't cotton picker labs until 1545, to anesthesiologist evaluation renay GARRIDO Surgeon's office made aware. - pulmonary office visit [place] 11/08/22: "...pulmonary fibrosis secondary to systemic scleroderma on mycophenolate and nintedanib therapy. She was evaluated for transplant and not felt to be a good candidate. She is doing reasonably well on her current transplant regimen. She completed pulmonary rehab...Pulmonary fibrosis: Continue mycophenolate and nintedanib under the direction of her entertainer or variety artist in the [facility] clinic at [facility]...No evidence of pulmonary hypertension on echocardiogram. Continue to follow clinically. Possible asthma: I refilled her Advair and albuterol today. She will continue to follow with her asthma specialist...Human metapneumovirus: Appears resolved. She was advised that she can discontinue the inhalers/nebulizers if they are not offering her clinical benefit..." - cardiology office visit 06/23/22: "...f/u from cardiac cath...PAF, pulm htn...has not had recurrent atrial fibrillation even with all of her illnesses...continues to be tachycardiac (sinus tach with PACs) likely on the basis of underlying damage to her already damaged lungs...RH 03/2022 mildly elevated right (mRAP 8 mmHg) and normal left (PCWP 14 mmHg) heart filling pressures. Borderline elevated mean pulmonary arterial pressure (mPAP 25 mmHg) and top normal pulmonary vascular resistance...mild elevation of her right-sided pressures and pulmonary pressures...does no tneed to be referred for lung transplantation due to pulmonary hypertension...order screening ultrasound of her abdominal aorta and iliacs as well as a lower extremity arterial Doppler...back in 6 months..." - Per hvac manager on 01/26/2023: No known infectious disease contacts, current infectious disease symptoms in past 10 days or COVID positive test result in the past 90 days. Chart Review Chart Review: Acceptable Risk for Surgery and Patient NOT seen in Pre Admission Testing Consults Requested none ASA ASA3 Proposed Anesthesia Anesthesia Type: General Risk / Benefits Reviewed With: PT / POA / Parent / Guardian, Accepts Plan and Informed Consent Obtained History Surgery Operation Date: 01/28/23 12:00 Proposed Procedures p Abdominal Wall Wound Debridement - Rasheed Ward MD, FACS Height/Weight Height: 5 ft 6 in Weight: 74.843 kg Allergies Allergy/AdvReac Type Severity Reaction Status Date / Time simvastatin [From Zocor] Allergy Intermediate "made me Verified 01/28/23 10:07 pass out" ibuprofen Allergy Mild stomach Verified 01/28/23 10:07 pain naproxen [From Aleve] Allergy Mild STOMACH Verified 01/28/23 10:07 PAIN oxycodone [From Percocet] Allergy Mild stomach Verified 01/28/23 10:07 pain oyster extract AdvReac Gastrointestinal Verified 01/28/23 10:07 Upset scallops AdvReac Gastrointestinal Verified 01/28/23 10:07 Upset Medications Home Medications Medication Instructions Recorded Confirmed Last Taken tramadol 37.5 mg-acetaminophen 325 1 tab PO QID PRN pain #30 tabs 11/14/18 01/28/23 01/27/23 20:00 mg tablet triamcinolone acetonide 55 mcg 2 sprays intranasal DAILY #33.8 mL 11/14/18 01/28/23 01/26/23 nasal spray aerosol (Nasacort) hydroxychloroquine 200 mg tablet 400 mg PO QPM 02/23/19 01/28/23 01/27/23 23:00 rivaroxaban 20 mg tablet (Xarelto) 20 mg PO QPM 02/23/19 01/28/23 01/25/23 19:00 lactase 3,000 unit tablet 3,000 units PO QID PRN Abdominal 05/08/19 01/28/23 01/27/23 12:00 Discomfort multivitamin 1 tab PO QAM 05/08/19 01/28/23 01/26/23 metoprolol succinate 100 mg 100 mg PO QPM 04/25/20 01/28/23 01/27/23 20:00 tablet,extended release 24 hr Saccharomyces boulardii 250 mg 250 mg PO QAM 04/28/21 01/28/23 01/26/23 capsule (Digest Probiotic (S.boulardii)) calcium carbonate 500 mg calcium 500 mg PO QAM 04/28/21 01/28/23 01/26/23 (1,250 mg) tablet cetirizine 10 mg capsule (Zyrtec) 10 mg PO QAM 04/28/21 01/28/23 01/27/23 07:00 gelofkst-wmt-WO 200 mcg-vit K 15 1 tab PO QPM 04/28/21 01/28/23 01/26/23 mcg-lycope 150 nvt-yrpnrh-zpyv tablet (Ocuvite Eye Plus Multi) omega 6-pka-vwp-fish oil 1,000 mg 1 cap PO QAM 04/28/21 01/28/23 01/26/23 (120 mg-180 mg) capsule (Fish Oil) omeprazole 40 mg capsule,delayed 40 mg PO QAM 04/28/21 01/28/23 01/28/23 04:00 release nintedanib 150 mg capsule (Ofev) 150 mg PO Q12H #180 caps 11/17/21 01/28/23 01/21/23 spironolactone 25 mg tablet 25 mg PO QAM 03/29/22 01/28/23 01/27/23 07:00 hqyjz-u-wznvzewkmadll 450 unit 450 unit PO BIDWMEAL PRN .abd 05/28/22 01/28/23 01/26/23 disintegrating tablet (Beano) bloating cyanocobalamin (vitamin B-12) 500 500 mcg PO DAILY 05/28/22 01/28/23 01/26/23 mcg tablet hydrochlorothiazide 25 mg tablet 12.5 mg PO DAILY 05/28/22 01/28/23 01/27/23 07:00 gkmhqx-oqnucxmr-jxqgemc 1 cap PO TID 05/28/22 01/28/23 01/27/23 20:00 6,000-19,000-30,000 unit capsule,delayed rel (Creon) mycophenolate mofetil 500 mg tablet 500 mg PO BID 05/28/22 01/28/23 01/28/23 04:00 prednisolone acetate 1 % eye 0 drp OPL QPM 05/28/22 01/28/23 01/26/23 23:00 drops,suspension simethicone 80 mg chewable tablet 80 mg PO DIRECTED PRN 05/28/22 01/28/23 Unknown .gas/bloating magnesium oxide 400 mg PO BID #60 tabs 05/31/22 01/28/23 01/26/23 albuterol sulfate 90 mcg/actuation 1 puff inhalation Q6H PRN 11/08/22 01/28/23 Unknown aerosol inhaler (ProAir HFA) shortness of breath or wheezing #8 grams fluticasone 250 mcg-salmeterol 50 1 inh inhalation BID #180 puffs 11/08/22 01/28/23 01/28/23 06:00 mcg/dose blistr powdr for inhalation (Advair Diskus) cholecalciferol (vitamin D3) 25 25 mcg PO DAILY 11/29/22 01/28/23 01/26/23 mcg (1,000 unit) capsule (Vitamin D3) NPO Date Last Intake of Fluids: 01/28/23 Time Last Intake of Fluids: 00:00 Date Last Intake of Solids: 01/28/23 Time Last Intake of Solids: 00:00 Past Medical History Medical History Environmental and seasonal allergies History of cardioversion 03/2021 @[facility] [place] (dyspnea on exertion) GERD (gastroesophageal reflux disease) Chronic back pain Chronic diarrhea Gastroparesis On anticoagulant therapy xarelto daily Hypertension Scleroderma Atrial fibrillation on xarelto follows with Dr. Bustamante Raynaud's syndrome Pulmonary fibrosis Asthma inhalers daily/prn Exercise / Class Metabolic Activity III < 4 Walking/Shop/Light housework Past Family History Family History Father Hearing loss Brother Hearing loss Other Cancer Heart disease Hypertension No family history of adverse response to anesthesia No family history of bleeding disorder Stroke Past Surgical History Surgical History History of benign breast biopsy History of dilatation and curettage History of total right knee replacement (TKR) History of colonoscopy History of esophagogastroduodenoscopy (EGD) Status post fine needle biopsy on thyroid--all benign History of tooth extraction full upper History of bilateral cataract extraction History of cardiac radiofrequency ablation (~10/2020) @ [facility] [place] History of hand surgery finger surgery History of hernia repair History of cholecystectomy History of surgery Mutiple GI procedures for blocked bowel. History of gastric bypass raymundo-en-y Past Anesthesia History No Hx of Anesthesia Complications and No Family Hx of Anesthesia Complications History of PONV No Hx of PONV and No Hx of Motion Sickness Social History Smoking Status: Never smoker Do You Dip or Chew Tobacco: No Hx Alcohol Use: No Hx Substance Use: No substance use type: does not use Physical Exam Vital Signs Last Vital Signs Temp 98.6 F 01/28/23 10:10 Pulse 76 01/28/23 10:10 Resp 20 01/28/23 10:10 BP 109/61 01/28/23 10:10 Pulse Ox 96 01/28/23 10:10 O2 Del Method Room Air 01/28/23 10:10 ENMT Mouth: + edentulous Thyromental Distance: > or= 3.5 Finger Breadths Mallampati Class: II Neck normal visual inspection Respiratory normal respiratory effort Auscultation: lungs clear to auscultation bilaterally Cardiovascular Rate/Rhythm: regular rate and regular rhythm Testing Electrocardiogram Date: 05/28/22 Poor data quality Sinus tachycardia with PACs, rate 113 bpm Possible inferior infarct 02/23/19 Possible anterior infarct 02/23/19 No significant change vs 05/21/22 EKG Chest X-Ray Date: 05/28/22 *1view* No acute abnormalities and in particular no radiographic evidence of pneumonia. Other Testing Abdomen pelvis CT 12/24/22 1. Cutaneous/subcutaneous defect in the anterior abdominal wall with soft tissue thickening correlates with the patient's reported chronic wound. No fluid collection to suggest abscess. 2. No bowel obstruction or bowel wall thickening. 3. Cholecystectomy with biliary ductal dilation, likely on a postsurgical basis. 4. Additional findings as above. Aorto-iliac duplex 07/14/22 Abdominal aorta, bilateral common, proximal internal and external iliac and common femoral arteries are within normal limits; no aneurysm or stenosis identified Bilat LE arterial duplex 07/14/22 No arterial occlusive disease identified in the bilateral common femoral, proximal profunda femoris, superficial femoral, popliteal, posterior tibial, anterior tibial or peroneal arteries Unable to obtain bilateral ankle/brachial indices due to non-compressive tibial arteries Chest CTA 05/21/22 1. No definite pulmonary embolus identified. 2. Mildly prominent bronchial orr may represent bronchitis. 3. Nonspecific small nodules in the right middle lobe, measuring up to 6 mm. Infectious/inflammatory process is not excluded. These are new compared to prior exam and could be further evaluated on follow-up exam in 12 months if patient has low risk or in 6-12 months if patient is at high risk. 4. Atherosclerotic changes of the aorta. No aortic aneurysm or dissection. 5. Prominent hepatic steatosis. 6. Scattered atelectasis and mild chronic interstitial lung disease. No other focal consolidation.
[2023-01-28] MEDS ORDERED: LIDOCAINE 2% 2 ML VIAL/AMP(20MG/ML) INFIL ONE (09:51)
[2023-01-28] MEDS ORDERED: PROPOFOL IV EMULSION 10 MG/ML 20 ML VIAL IV ONE (09:51)
[2023-01-28] MEDS ORDERED: ONDANSETRON INJ 2 MG/ML 2 ML VIAL ONE (09:51)
[2023-01-28] MEDS ORDERED: fentaNYL citrate PF 100 MCG/2 ML VIAL ONE (09:51)
[2023-01-28] MEDS ORDERED: ATROPINE SULFATE 0.1 MG/ML 10ML SYR IV PRN (09:56)
[2023-01-28] MEDS ORDERED: ONDANSETRON INJ 2 MG/ML 2 ML VIAL IV PRN ×2 (09:56→13:05)
[2023-01-28] MEDS ORDERED: ePHEDrine sulfate 50 MG/ML AMP IV PRN (09:56)
[2023-01-28] MEDS ORDERED: fentaNYL citrate PF 100 MCG/2 ML VIAL IV PRN (09:56)
--- NOTE | 2023-01-28 10:29 | History & Physical Bridge Note ---
Date of Service January 28, 2023 History & Physical Bridge Note I have examined the patient, reviewed the History & Physical and in the interval since the performance of the History & Physical I have noted the following changes of clinical significance: no changes noted The patient is comes in to have a debridement of abdominal wall nonhealing wound She was last seen there has been no change in overall health or wound issues She is alert coherent very pleasant no distress Sclera nonicteric Lungs no audible wheezing or rails Heart regular rate The abdomen the wound infraumbilically continues to have some drainage with some fat necrosis and induration in the left of the wound and area approximately 10 cm no cellulitis or redness appreciated Extremities grossly normal The patient was marked all question answered Consent for surgery signed and witnessed
[2023-01-28] MEDS: LACTATED RINGER'S 1,000 ML IV SCH ×2 (10:32→14:16)
[2023-01-28] MEDS ORDERED: SUGAMMADEX SODIUM 200 MG/2 ML VIAL IV ONE (11:29)
[2023-01-28] MEDS ORDERED: DEXAMETHASONE SOD INJ 4 MG/ML VIAL ONE (11:29)
[2023-01-28] MEDS ORDERED: ROCURONIUM BROMIDE 10 MG/ML 5 ML VIAL IV ONE (11:29)
--- NOTE | 2023-01-28 11:37 | Post Operative Brief Note ---
Immediate Post Op Note v1 Date of Surgery January 28, 2023 Pre & Post Diagnosis Operation Date: 01/28/23 12:00 Pre-Op Diagnosis: Pressure Ulcer Skin Abdominal Wall Post-Op Diagnosis: Pressure Ulcer Skin Abdominal Wall I identified the patient and participated in the time-out.: Yes Procedure Operation Date: 01/28/23 12:00 Actual Procedures p Abdominal Wall Wound Debridement(Not Applicable) - Rasheed Ward MD, FACS [id number] skin and sub cut tissue to abd fascia Surgeon Rasheed Ward MD, FACS Paleology Professor Cleo SÁNCHEZ Estimated Blood Loss 30 Findings Consistent with Post-Op Diagnosis
[2023-01-28] MEDS: BUPIVACAINE 0.5 % 5 MG/1 ML MPF 30ML VIAL ONE (11:57)
--- NOTE | 2023-01-28 11:58 | Operative Report ---
PG Post Operative Report Pre & Post Diagnosis Operation Date: 01/28/23 12:00 Pre-Op Diagnosis: Necrotic nonhealing abdominal wound Post-Op Diagnosis: Necrotic nonhealing abdominal wound I identified the patient and participated in the time-out.: Yes Procedure Operation Date: 01/28/23 12:00 Actual Procedures p Abdominal Wall Wound Debridement, Skin, Subcutaneous, Fascia 15x8 (Not Applicable) - Rasheed Ward MD, FACS Total area of debridement total area of debridement 15 cm x 8 cm this skin subcutaneous tissue to fascia Cultures of septic changes fatty tissue obtained The patient was brought into the operating room theater supine position general endotracheal anesthesia the abdomen was prepped Betadine solution properly draped a timeout was had the patient identified that we marked out the indurated area that extended from a central core inferior midline incision that was about 3 cm wide and about a centimeter half deep and it was a nonhealing and from here induration extended down towards the left lower quadrant and the skin and subcutaneous tissue therefore using electrocautery and knife we were able to free circumferentially all the skin and subcutaneous tissue down to good viable abdominal wall fascia moderate amount of dilated venous plexus were encountered in the subcu that were controlled electrocautery and sutures we are finished with completely debrided an area that was about 15 cm x 8 cm a piece of this subcutaneous indurated area was sent for cultures and the rest was sent for permanent section the wound was then packed with 1 inch plain gauze held in place with interrupted 3-0 silk sutures dressing was applied procedure was tolerated well by the patient estimated blood loss approximately 30 cc Addendum Robert Escobar was present throughout the case and helped with retraction exposure wound closure Addendum called her Sister Jane at [phone] and left a generic message that her sister had done well Surgeon Rasheed Ward MD, FACS [employer] Cle[employer] SÁNCHEZ Estimated Blood Loss 30 Findings Consistent with Post-Op Diagnosis Significant amount of indurated chronic inflamed tissue in the subcutaneous tissue going down to the abdominal wall fascia The indurated area extended 15 cm x 8 cm Specimens Skin and indurated subcutaneous tissue down to the abdominal fascia 15 cm x 8 cm Indications 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 Any exceptions are noted below.
--- NOTE | 2023-01-28 12:09 | Anesthesiology Progress Note ---
Date of Service January 28, 2023 Anesthesia Post Procedure Vital Signs Vital Signs: Temp Pulse Pulse Resp BP Pulse Ox O2 Del Method 01/28/23 12:05 81 16 110/67 98 Oxymask 01/28/23 11:55 82 18 112/63 100 Oxymask 01/28/23 11:47 97.9 F 84 22 106/54 L 100 Oxymask 01/28/23 10:10 98.6 F 76 20 109/61 96 Room Air O2 Flow Rate 01/28/23 12:05 2 01/28/23 11:55 6 01/28/23 11:47 6 01/28/23 10:10 Pain Intensity Left Abdomen: Pain Intensity: 4 Abdomen: Pain Intensity: 2 Transfer of Care Handoff Completed per policy Notes Mental Status: alert / awake / arousable and participated in evaluation Patient Amnestic to Procedure: Yes Nausea / Vomiting: adequately controlled Pain: adequately controlled Airway Patency, RR, SpO2: stable & adequate BP & HR: stable & adequate Hydration State: stable & adequate Anesthetic Complications: no major complications apparent and Pt Satisfied with anesthetic care
[2023-01-28] MEDS ORDERED: MoRPHine SULFATE 4 MG/ML 1 ML CARP\\VIAL IV PRN (13:05)
[2023-01-28] MEDS ORDERED: ACETAMINOPHEN 325 MG TAB PO PRN (13:05)
[2023-01-28] MEDS ORDERED: ALBUTEROL HFA 8 GM INHALER INH PRN (13:05)
[2023-01-28] MEDS: traMADol HCL 50 MG TABLET PO PRN (14:17)
[2023-01-28] MEDS: PANCREAZE (LIPASE 4,200U) CAP PO SCH (14:50)
[2023-01-28] MEDS: FLUTICASONE/VILANTEROL 200/25MCG 14 PUFFS/INHALER INH SCH (14:50)
[2023-01-28] MEDS: METOPROLOL SUCC 50MG EXT REL TAB PO SCH (19:57)
[2023-01-28] MEDS: MYCOPHENOLATE MOFETIL 250 MG CAP PO SCH (19:57)
[2023-01-28] MEDS: HYDROXYCHLOROQUINE SULFATE 200 MG TAB PO SCH (19:58)
[2023-01-28] MEDS: MAGNESIUM OXIDE 400 MG TAB PO SCH (19:58)
[2023-01-29 08:12] LABS: Basophils # (auto) 0.03 K/uL (0.00-0.20); Basophils % (auto) 0.2 %; Eosinophils # (auto) 0.04 K/uL (0.00-0.50); Eosinophils % (auto) 0.3 %; Hematocrit (blood only) 31.9 % (37.0-47.0); Hemoglobin 10.3 g/dl (12.0-16.0); Immature Granulocytes # (auto) 0.04 K/uL (0.01-0.20); Immature Granulocytes % (auto) 0.3 %; Lymphocytes # (auto) 2.39 K/uL (1.20-3.40); Lymphocytes % (auto) 19.2 %; Mean Corpuscular Hemoglobin 31.6 pg (25.0-34.0); Mean Corpuscular Hgb Conc 32.3 g/dL (32.0-36.0); Mean Corpuscular Volume 97.9 fL (80.0-100.0); Mean Platelet Volume 9.6 fL (9.4-12.4); Monocytes # (auto) 1.07 K/uL (0.11-0.59); Monocytes % (auto) 8.6 %; Neutrophils # (auto) 8.89 K/uL (1.40-6.50); Neutrophils % (auto) 71.4 %; Platelet Count 237 K/uL (130-400); RDW Standard Deviation 50.3 fL (36.4-46.3); Red Blood Count 3.26 M/uL (4.20-5.40); White Blood Count 12.46 K/ul (4.8-10.8)
[2023-01-29 08:21] LABS: BUN Creatinine Ratio 28.2 (10-20); Calcium 7.9 mg/dl (8.6-10.3); Creatinine Clr Calc Pharmacy 141.4 ml/min; Est GFR (African American) 125.1 ml/min; Est GFR (Non-African American) 107.9 ml/min
--- NOTE | 2023-01-29 09:52 | Surgery Progress Note ---
Date of Service January 29, 2023 Assessment & Plan (1) Induration of periwound skin: Plan: The operative procedure was discussed with the patient including specifically telling her that we took all the area that was the left of the nonhealing central wound that was all indurated in fact she states that since this surgery she has not had any pain around that area where previously she was told it was due to nerve entrapment Our plan at this time is to remove the packing and prep her for a VAC system Consult been put for wound nurse to see the patient Admission and Anticipated Discharge Date Admission Date: January 28, 2023 Subjective Patient is 24 hours postop debridement of abdominal wall nonhealing wound She is resting comfortably she has had minimal discomfort the pain is managed with oral analgesics Physical Exam Physical Exam: The dressing is intact and dry The abdomen is completely benign Results & Data Vital Signs (Past 12 Hours) Vital Signs Temp Pulse Resp BP Pulse Ox O2 Del Method 01/29/23 06:57 36.6 C 72 16 105/67 93 Room Air 01/29/23 05:15 36.3 C L 71 16 113/72 92 Room Air 01/29/23 00:04 36.6 C 69 16 102/56 L 95 Room Air
[2023-01-29] MEDS: SPIRONOLACTONE 25 MG TAB PO SCH (10:31)
[2023-01-29] MEDS: hydroCHLOROthiazide 25 MG TAB PO SCH (10:31)
[2023-01-29] MEDS: CALCIUM CARBONATE 1250MG TAB PO SCH (10:32)
[2023-01-29] MEDS: CETIRIZINE HCL 10 MG TABLET PO SCH (10:32)
[2023-01-29] MEDS: PANTOprazole 40 MG TAB PO SCH (10:33)
[2023-01-30 07:41] LABS: Basophils # (auto) 0.06 K/uL (0.00-0.20); Basophils % (auto) 0.3 %; Eosinophils # (auto) 0.04 K/uL (0.00-0.50); Eosinophils % (auto) 0.2 %; Hematocrit (blood only) 34.6 % (37.0-47.0); Hemoglobin 11.4 g/dl (12.0-16.0); Immature Granulocytes # (auto) 0.08 K/uL (0.01-0.20); Immature Granulocytes % (auto) 0.4 %; Lymphocytes # (auto) 2.77 K/uL (1.20-3.40); Lymphocytes % (auto) 15.4 %; Mean Corpuscular Hemoglobin 31.4 pg (25.0-34.0); Mean Corpuscular Hgb Conc 32.9 g/dL (32.0-36.0); Mean Corpuscular Volume 95.3 fL (80.0-100.0); Mean Platelet Volume 10.3 fL (9.4-12.4); Monocytes % (auto) 9.4 %; Neutrophils # (auto) 13.36 K/uL (1.40-6.50); Neutrophils % (auto) 74.3 %; Platelet Count 222 K/uL (130-400); RDW Coefficient of Variation 13.4 % (11.5-14.5); RDW Standard Deviation 47.1 fL (36.4-46.3); Red Blood Count 3.63 M/uL (4.20-5.40); White Blood Count 18.01 K/ul (4.8-10.8)
[2023-01-30 08:01] LABS: Calcium 7.9 mg/dl (8.6-10.3); Creatinine Clr Calc Pharmacy 157.6 ml/min; Est GFR (African American) 129.6 ml/min; Est GFR (Non-African American) 111.8 ml/min; Potassium 4.2 mmol/L (3.5-5.1)
--- NOTE | 2023-01-30 12:25 | Surgery Progress Note ---
Date of Service January 30, 2023 Assessment & Plan (1) Decubitus skin ulcer: Plan: The wound was checked the sutures were removed the packing 1 inch plain gauze was removed there was moderate amount of seepage as expected using saline and a few places we were able to remove the packing with minimal discomfort the base of the wound is viable no odor appreciated the undermining area both inferior and superior to the incision and the flaps were free of any necrosis except minimally at the skin edges At this point the wound was repacked with 4 x 4 gauze slightly and better normal saline as a wet-to-dry dressing and we will keep this on until tomorrow hopefu lly the wound nurse will see her tomorrow for possible VAC placement We will hold Nemo for now Admission and Anticipated Discharge Date Admission Date: January 28, 2023 Subjective Patient laying in bed without any issues minimal abdominal wall discomfort tolerating a diet Physical Exam Physical Exam: Alert coherent without any abdominal discomfort The initial dressing on the wound just intact therefore was removed the packing which was held in place with some silk vertical mattress intact with minimal drainage small amount of skin edge necrosis appreciated on the flaps there is no redness on the flaps themselves Results & Data Vital Signs (Past 12 Hours) Vital Signs Temp Pulse Resp BP Pulse Ox O2 Del Method 01/30/23 08:15 Room Air 01/30/23 07:25 36.6 C 81 16 112/69 94 Room Air
[2023-01-31 07:41] LABS: Basophils # (auto) 0.05 K/uL (0.00-0.20); Basophils % (auto) 0.5 %; Eosinophils # (auto) 0.12 K/uL (0.00-0.50); Eosinophils % (auto) 1.2 %; Hematocrit (blood only) 33.6 % (37.0-47.0); Hemoglobin 10.8 g/dl (12.0-16.0); Immature Granulocytes # (auto) 0.04 K/uL (0.01-0.20); Immature Granulocytes % (auto) 0.4 %; Lymphocytes % (auto) 21.6 %; Mean Corpuscular Hemoglobin 31.1 pg (25.0-34.0); Mean Corpuscular Hgb Conc 32.1 g/dL (32.0-36.0); Mean Corpuscular Volume 96.8 fL (80.0-100.0); Mean Platelet Volume 9.9 fL (9.4-12.4); Monocytes % (auto) 9.8 %; Neutrophils # (auto) 6.77 K/uL (1.40-6.50); Neutrophils % (auto) 66.5 %; Platelet Count 194 K/uL (130-400); RDW Coefficient of Variation 13.2 % (11.5-14.5); RDW Standard Deviation 47.1 fL (36.4-46.3); Red Blood Count 3.47 M/uL (4.20-5.40); White Blood Count 10.18 K/ul (4.8-10.8)
[2023-01-31 08:12] LABS: BUN Creatinine Ratio 44.7 (10-20); Creatinine Clr Calc Pharmacy 145.2 ml/min; Est GFR (African American) 126.2 ml/min; Est GFR (Non-African American) 108.8 ml/min
[2023-01-31] MEDS: MoRPHine SULFATE 2 MG/ML CARP IV PRN (11:16)
--- NOTE | 2023-01-31 12:51 | Surgery Progress Note ---
Date of Service January 31, 2023 Assessment & Plan (1) Decubitus skin ulcer: Plan: POD 3 Wound vac application today, patient tolerated well Patient stable for d/c Follow up in wound care center tomorrow or Tuesday patient will call for an appointment Will send prescription for PO pain medication WBC wnl Admission and Anticipated Discharge Date Admission Date: January 28, 2023 Subjective Patient reports she is doing well Had some pain with wound vac application but is asking nurse for PO med pains Review of Systems Constitutional: no fever and no chills Respiratory: no dyspnea Cardiovascular: no chest pain Gastrointestinal: no nausea and no vomiting Integumentary: + wounds (abdominal post operative surgi gilmar site , covered with wound vac ) Physical Exam Physical Exam: alert oriented Constitutional: well developed, cooperative and comfortable; no acute distress Respiratory: normal respiratory effort and able to speak in complete sentences; no respiratory distress Cardiovascular: Rate/Rhythm: regular rate Gastrointestinal (Abdomen): Inspection/Auscultation: abdomen not distended Percussion/Palpation: abdomen soft wound vac Results & Data Vital Signs (Past 12 Hours) Vital Signs Temp Pulse Resp BP Pulse Ox O2 Del Method 01/31/23 11:40 98.1 F 67 16 107/72 95 Room Air 01/31/23 08:00 98.2 F 68 18 102/58 L 93 Room Air PG Care Time/CCT Total # of Minutes Spent Total Time Spent with Patient: Total time spent is greater than 50% in coordination of care (as documented) at patient's floor/unit and/or counseling patient: Coding Level of Care Code 32636 Post Operative Follow-Up Diagnoses Decubitus skin ulcer L89.90
--- NOTE | 2023-02-01 07:00 | Surgery Progress Note ---
Date of Service February 01, 2023 Assessment & Plan (1) Induration of periwound skin: Plan: Patient is third postoperative day status post excision nonhealing wound and induration of the abdominal wall The path report is pending intraoperative cultures were negative Once plans for discharge are completed patient could be followed up at the wound clinic at set intervals All question answered Admission and Anticipated Discharge Date Admission Date: January 28, 2023 Subjective States he is having some discomfort with the VAC system would like something to take for home use usually takes some tramadol Denies any GI symptoms she is eating her bowels removed Physical Exam Physical Exam: VAC system is intact Abdomen benign Results & Data Vital Signs (Past 12 Hours) Vital Signs Temp Pulse Resp BP Pulse Ox O2 Del Method 01/31/23 21:20 Room Air 01/31/23 20:28 36.7 C 82 18 120/77 97 Room Air
[2023-02-01 07:10] LABS: Basophils # (auto) 0.04 K/uL (0.00-0.20); Basophils % (auto) 0.4 %; Eosinophils # (auto) 0.11 K/uL (0.00-0.50); Eosinophils % (auto) 1.1 %; Hematocrit (blood only) 34.4 % (37.0-47.0); Hemoglobin 11.2 g/dl (12.0-16.0); Immature Granulocytes # (auto) 0.03 K/uL (0.01-0.20); Immature Granulocytes % (auto) 0.3 %; Lymphocytes # (auto) 1.74 K/uL (1.20-3.40); Mean Corpuscular Hemoglobin 31.2 pg (25.0-34.0); Mean Corpuscular Hgb Conc 32.6 g/dL (32.0-36.0); Mean Corpuscular Volume 95.8 fL (80.0-100.0); Mean Platelet Volume 10.1 fL (9.4-12.4); Monocytes # (auto) 1.08 K/uL (0.11-0.59); Monocytes % (auto) 11.2 %; Neutrophils # (auto) 6.67 K/uL (1.40-6.50); Platelet Count 217 K/uL (130-400); RDW Coefficient of Variation 12.9 % (11.5-14.5); RDW Standard Deviation 45.9 fL (36.4-46.3); Red Blood Count 3.59 M/uL (4.20-5.40); White Blood Count 9.67 K/ul (4.8-10.8)
[2023-02-01 07:32] LABS: BUN Creatinine Ratio 59.4 (10-20); Calcium 8.2 mg/dl (8.6-10.3); Creatinine Clr Calc Pharmacy 172.4 ml/min; Est GFR (African American) 133.5 ml/min; Est GFR (Non-African American) 115.2 ml/min
--- NOTE | 2023-02-01 10:59 | Discharge Summary ---
Date of Service February 01, 2023 Principal Diagnosis Abdominal Wall Wound Debridement, Skin, Subcutaneous, Fascia 15x8 Discharge Exam alert oriented Constitutional well developed, cooperative and comfortable; no acute distress Respiratory normal respiratory effort and able to speak in complete sentences; no respiratory distress Cardiovascular Rate/Rhythm: regular rate Gastrointestinal (Abdomen) Inspection/Auscultation: abdomen not distended Percussion/Palpation: abdomen soft Wound vac in place Discharge Data Allergies Allergy/AdvReac Type Severity Reaction Status Date / Time simvastatin [From Zocor] Allergy Intermediate "made me Verified 01/28/23 10:07 pass out" ibuprofen Allergy Mild stomach Verified 01/28/23 10:07 pain naproxen [From Aleve] Allergy Mild STOMACH Verified 01/28/23 10:07 PAIN oxycodone [From Percocet] Allergy Mild stomach Verified 01/28/23 10:07 pain oyster extract AdvReac Gastrointestinal Verified 01/28/23 10:07 Upset scallops AdvReac Gastrointestinal Verified 01/28/23 10:07 Upset Procedures Performed Operation Date: 01/28/23 12:00 Actual Procedures p Abdominal Wall Wound Debridement, Skin, Subcutaneous, Fascia 15x8 (Not Applicable) - Rasheed Ward MD, FACS Hospital Course (1) Induration of periwound skin: Patient underwent an elective Abdominal Wall Wound Debridement, Skin, Subcutaneous, Fascia 15x8 on 01/28/[address] Ward and was admitted to the hospital for observation and wound vac placement. Wound vac was applied 01/31/23. Patient was set up with home nursing care and instructed to follow up with the wound care center. She was tolerating her diet and had no complaints. She remained stable throughout her entire stay and pain was controlled with PO pain medication. She verbalized understanding of discharge instructions and follow up recommendations and was discharged home on 02/01/23. Total Time Total Time Spent Total Time Spent (In Minutes): 30 Discharge Plan Discharge Items Patient Disposition: Home - Self-Care Reason For Visit: S/P ABDOMINAL WALL WOUND EXCISION Discharge Diagnosis: Abdominal Wall Wound Debridement Activity: As commented below Lifting: No more than 10 pounds Bathing Comment: you can bird bath, no pools or bath tubs untill cleared by wound center Exercise/Sports: Wait until after follow-up appointment Non-emergency contact: Surgeon Call non-emergency contact if: you have any medication questions, your symptoms worsen, your pain is worsening, your pain is unusual for you, your temperature is above 101, your wound has increased redness, your wound has increased drainage and your wound pain has increased Follow-up/Referrals: Rasheed Ward MD, FACS [Surgeon] - 02/01/23 8:40 am (call office for a follow up in 1 week CALLED [facility]; PATIENT WAS A WRITTEN DISCHARGE YESTERDAY; SHE IS CURRENTLY IN 383-2. I LEFT A MESSAGE FOR THE WOUND CARE CENTER TO CALL THE PATIENT WITH A HOSPITAL FOLLOW UP VISIT. ) Marcia Clemente MD [Primary Care Provider] - Diet: Regular Addtl Attending Provider Instructions: you can resume your Xarelto tonight Call wound care center for an appointment Call office if you have questions or concerns Pending Studies at Discharge: No Stand-Alone Forms: My [facility] Medications and DC Order Prescriptions: New tramadol 50 mg tablet 50 mg PO Q6H MDD 6 tabs PRN (Reason: pain) Qty: 10 0RF Rx Instructions: Take one tablet by mouth every 6 hours as needed for pain. Continued cholecalciferol (vitamin D3) [Vitamin D3] 25 mcg (1,000 unit) capsule 25 mcg PO DAILY Ofev 150 mg capsule 150 mg PO Q12H Qty: 180 3RF Patient Comments: HAS NOT BEEN TAKING lactase 3,000 unit tablet 3,000 units PO QID PRN (Reason: Abdominal Discomfort) multivitamin Tablet 1 tab PO QAM triamcinolone acetonide [Nasacort] 55 mcg aerosol,spray 2 sprays INTNAS DAILY Qty: 33.8 0RF Rx Instructions: administer into each nostril tramadol-acetaminophen 37.5-325 mg tablet 1 tab PO QID PRN (Reason: pain) Qty: 30 0RF spironolactone 25 mg tablet 25 mg PO QAM albuterol sulfate [ProAir HFA] 90 mcg/actuation HFA aerosol inhaler 1 puff INH Q6H PRN (Reason: shortness of breath or wheezing) Qty: 8 0RF fluticasone propion-salmeterol [Advair Diskus] 250-50 mcg/dose blister with device 1 inh INHALATION BID Qty: 180 3RF Xarelto 20 mg Tablet 20 mg PO QPM Patient Comments: LAST DOSE 11/28/23 hydroxychloroquine 200 mg tablet 400 mg PO QPM metoprolol succinate 100 mg tablet extended release 24 hr 100 mg PO QPM omeprazole 40 mg capsule,delayed release(DR/EC) 40 mg PO QAM calcium carbonate 500 mg calcium (1,250 mg) tablet 500 mg PO QAM Saccharomyces boulardii [Digest Probiotic (S.boulardii)] 250 mg capsule 250 mg PO QAM Rx Instructions: swallow whole omega 3-wfn-zol-fish oil [Fish Oil] 1,000 mg (120 mg-180 mg) capsule 1 cap PO QAM Zyrtec 10 mg capsule 10 mg PO QAM Ocuvite Eye Plus Multi 200-15-150 mcg tablet 1 tab PO QPM Rx Instructions: administer with a meal and a large glass of water hydrochlorothiazide 25 mg tablet 12.5 mg PO DAILY Beano 450 unit Tablet,Disintegrating 450 unit PO BIDWMEAL PRN (Reason: .abd bloating) Creon 6,000-19,000 -30,000 unit capsule,delayed release(DR/EC) 1 cap PO TID Rx Instructions: do not exceed 10,000 unit/kg lipase per 24 hrs mycophenolate mofetil 500 mg tablet 500 mg PO BID prednisolone acetate 1 % drops,suspension 0 drp OPL QPM cyanocobalamin (vitamin B-12) 500 mcg Tablet 500 mcg PO DAILY simethicone 80 mg Tablet,Chewable 80 mg PO DIRECTED PRN (Reason: .gas/bloating) magnesium oxide 400 mg magnesium tablet 400 mg PO BID Qty: 60 0RF Discharge Orders: Discharge Order (Routine); Ordered 02/01/23 Ordered By: Mark Cardona Admission Data Admit Date/Time: 01/28/23 15:54 Attending Provider: Rasheed Ward Admit Provider: Rasheed Ward Primary Care Provider: Marcia Clemente Coding Level of Care Code 07427 IN/OBS DISCH 30 MIN/LESS Diagnoses Induration of periwound skin R23.4
== END 2023-02-01 13:19 | disposition home health service (06) | DRG 901 ==
LOC: ASU 09:38 → 3N 09:38

== ENCOUNTER 2023-11-14 10:52 | Inpatient (IN) ==
[2023-11-14 12:32] LABS: Basophils # (auto) 0.04 K/uL (0.00-0.20); Basophils % (auto) 0.4 %; Eosinophils # (auto) 0.03 K/uL (0.00-0.50); Eosinophils % (auto) 0.3 %; Hematocrit (blood only) 33.7 % (37.0-47.0); Hemoglobin 10.7 g/dl (12.0-16.0); Immature Granulocytes # (auto) 0.03 K/uL (0.01-0.20); Immature Granulocytes % (auto) 0.3 %; Lymphocytes # (auto) 2.21 K/uL (1.20-3.40); Lymphocytes % (auto) 23.2 %; Mean Corpuscular Hemoglobin 32.7 pg (25.0-34.0); Mean Corpuscular Hgb Conc 31.8 g/dL (32.0-36.0); Mean Corpuscular Volume 103.1 fL (80.0-100.0); Mean Platelet Volume 10.4 fL (9.4-12.4); Monocytes # (auto) 0.84 K/uL (0.11-0.59); Monocytes % (auto) 8.8 %; Neutrophils # (auto) 6.37 K/uL (1.40-6.50); Platelet Count 262 K/uL (130-400); RDW Coefficient of Variation 13.3 % (11.5-14.5); RDW Standard Deviation 50.7 fL (36.4-46.3); Red Blood Count 3.27 M/uL (4.20-5.40); White Blood Count 9.52 K/ul (4.8-10.8)
--- NOTE | 2023-11-14 12:32 | XRay Report ---
XR chest 1V portable CLINICAL HISTORY: Chest pain, nonspecific COMPARISON STUDY: Chest CT May 21, 2022. Chest radiograph September 22, 2023. FINDINGS: Low lung volumes are again noted. Bibasilar densities favor atelectasis. There is no eviden ce for pneumonia. Subtle interstitial thickening is unchanged. There is no evidence for overt pulmona ry edema. Cardiac mediastinal silhouette is stable. Prominent gas-filled loops of bowel within left u pper quadrant are unchanged. IMPRESSION: No acute cardiopulmonary findings. No change in appearance of the chest. ACT 112: Negative or not required by law. Electronically signed by: George Scott M.D. 11/14/2023 12:31 PM
[2023-11-14 12:33] LABS: Alanine Aminotransferase 41 U/L (7-52); Albumin Globulin Ratio 1.3 (0.9-2); Albumin Level 2.8 gm/dl (3.4-5.0); Alkaline Phosphatase 100 U/L (34-104); Anion Gap 5 (3-11); Aspartate Aminotransferase 42 U/L (13-39); BUN Creatinine Ratio 56.5 (10-20); Bilirubin,Total 0.9 mg/dl (0.2-1.0); Blood Urea Nitrogen 13 mg/dl (6-23); Calcium 7.7 mg/dl (8.6-10.3); Carbon Dioxide 36 mmol/L (21-32); Chloride 93 mmol/L (98-107); Est GFR (African American) 147.8 ml/min; Est GFR (Non-African American) 127.5 ml/min; Globulin 2.1 gm/dl (2.5-4.0); Glucose 85 mg/dl (70-99(Fasting)); Potassium 3.5 mmol/L (3.5-5.1); Sodium 134 mmol/L (136-145); Total Protein 4.9 gm/dl (6.0-8.3)
--- NOTE | 2023-11-14 12:34 | Emergency Department Note ---
Impression & Plan Weakness, MONTES (dyspnea on exertion), Hypomagnesemia, Anemia ED Provider Note NAME: LJ Garcia NIKOLE AGE: 68 SEX: F : 1955 ARRIVES VIA: Walk-In INFORMANT: Patient, ED PROVIDER(S): Parmjit Gao DO CHIEF COMPLAINT: Weakness HPI: The patient is a 68-year-old female who presented to the emergency department for an evaluation of weakness. The patient states she has been having symptoms for the last few months. The patient has been seen by her family doctor as well as her specialist. She was at her [employer] office today and she was told to go to the emergency department for possible admission. The patient's been having generalized weakness in both lower extremities. She denies having any recent trauma. She has had shortness of breath. She describes a dry cough. She denies having any hemoptysis or colored sputum. ROS: See above HPI for pertinent positives & negatives. A total of 10 systems reviewed and were otherwise negative. PAST MEDICAL HISTORY: See Below PAST SURGICAL HISTORY: See Below FAMILY HISTORY: See Below SOCIAL HISTORY: See Below HOME MEDICATIONS: See Below ALLERGIES: See Below VITALS: See Below PHYSICAL EXAMINATION: GENERAL: Patient is awake alert in no acute distress patient is resting comfortably and showing no signs of anxiety EYES: The conjunctivae are clear. The pupils are round and reactive. EARS, NOSE, MOUTH AND THROAT: The nose is without any evidence of any deformity. NECK: The neck is nontender and supple. RESPIRATORY: Diminished breath sounds are noted throughout. CARDIOVASCULAR: Regular rate and rhythm noted there no murmurs rubs or gallops normal S1 normal S2. GASTROINTESTINAL: The abdomen is soft. Abdomen is nontender. MUSCULOSKELETAL/EXTREMITIES: There is no evidence of gross deformity full range of motion is noted in the hips and shoulders. SKIN: Skin is warm and dry. Trace pedal edema was noted bilaterally. NEUROLOGIC: Patient is awake alert and oriented x3 strength is diminished but symmetric. MEDICAL DECISION MAKING: The patient is a 68-year-old female who was sent to the emergency department by her primary cardiology group for evaluation as well as admission for generalized weakness. The patient has a history of paroxysmal atrial fibrillation. He was felt that she might be suffering from paroxysmal atrial fibrillation causing her symptoms. She also has a history of other medical issues. She has a history of Raynaud's syndrome. The patient was not hypoxic with exertion but she did drop down into the low 90s. I discussed the patient's laboratory and radiographic studies with her. She was treated with IV magnesium replacement. Given her symptoms age and comorbidities I discussed her condition with the on-call [facility] hospitalist. They have agreed to evaluate the patient in the emergency department for further management and disposition. Triage Nursing notes reviewed. Prior medical records reviewed Vital Signs: reviewed and remarkable for no significant abnormalities Differential diagnosis: Infection, dehydration, metabolic abnormality, hypo/hyperglycemia, electrolyte disturbance, anemia, hypoxia, cardiac sources, intracerebral event, toxicologic, neurologic, as well as other pathologies. ER treatment provided: See below Diagnostics interpreted by me: ECG: EKG was obtained in the emergency department. My interpretation is sinus rhythm at 76 bpm. Low voltage was noted throughout. There is no acute ST segment abnormalities noted. This was compared to a tracing from May 28, 2020. No changes were noted. Cardiac Monitoring: An order was placed for continuous cardiac monitoring. The monitor shows a rate of 81 bpm with sinus rhythm. Laboratory studies: As stated above and show below. Imaging studies: See below. Radiographic imaging was reviewed by myself Consultation(s): I discussed this case with Magdy who is on for the [facility] hospitalist group. Past Med/Surg History Problem List (Updated 11/14/23 @ 15:28 by Parmjit Gao DO) Anemia (Acute) Hypomagnesemia (Acute) MONTES (dyspnea on exertion) (Acute) Weakness (Acute) Pressure ulcer, buttock (Acute) Nausea (Acute) Decreased appetite (Acute) Pallor (Acute) Surgical wound, non healing (Acute) Induration of periwound skin Pain of right scapula Hypomagnesemia (Acute) Hypokalemia (Acute) Decubitus skin ulcer Hypomagnesemia Hypokalemia Acute respiratory failure with hypoxia Hypoxia (Acute) Bronchitis due to human metapneumovirus (hMPV) (Acute) Dyspnea on minimal exertion (Acute) Hypoxia (Acute) Acute respiratory distress (Acute) Acute bronchitis (Acute) Lumbar degenerative disc disease Stage III pressure ulcer (Acute) Gastroparesis Regurgitation of food Dysphagia Encounter for pre-operative examination Vocal cord nodules Anticoagulant long-term use Acute upper respiratory infection (Acute) History of atrial fibrillation (Acute) Pulmonary fibrosis (Acute) Atrial flutter (Acute) No significant past surgical history Allergic rhinitis caused by mold (Chronic) Allergic rhinitis due to dust mite (Chronic) Allergic rhinitis due to animal hair and dander (Chronic) Allergic rhinitis due to pollen (Chronic) GERD (gastroesophageal reflux disease) MONTES (dyspnea on exertion) (Acute) Hypertension Scleroderma Atrial fibrillation on xarelto follows with Dr. Bustamante > no pacer Raynaud's syndrome Asthma (Chronic) rare res inh use Pulmonary fibrosis (Chronic) Medical History History of COVID-19 fall 2021 Poor intravenous access "took 2 hours to get IV in for last procedure, finally needed the [place] machine to get in place, had to be put in by anesthesia" Environmental and seasonal allergies History of cardioversion x several Chronic back pain Chronic diarrhea Gastroparesis On anticoagulant therapy xarelto daily Surgical History S/P debridement (01/28/23) Abdominal Wall Wound Debridement, Skin, Subcutaneous, Fascia 15x8 - Rasheed Ward MD, FACS > pt still has at present, follows with wound clinic History of benign breast biopsy History of dilatation and curettage History of total right knee replacement (TKR) History of colonoscopy History of esophagogastroduodenoscopy (EGD) Status post fine needle biopsy on thyroid--all benign History of tooth extraction full upper History of bilateral cataract extraction History of cardiac radiofrequency [place] (~10/2020) [place] [facility] [place] of hand surgery finger surgery > right History of hernia repair History of cholecystectomy History of surgery Mutiple GI procedures for blocked bowel. History of gastric bypass [id number] Family History Father Hearing loss Brother Hearing loss Other Cancer Heart disease Hypertension No family history of adverse response to anesthesia No family history of bleeding disorder Stroke Social History Smoking Status: Never smoker Second Hand Exposure: No; Do You Dip or Chew Tobacco: No; Hx Alcohol Use: No Hx Substance Use: No Preferred Language: Japanese Communication Ability: Effective Staff Sonographer Required: No Beliefs That Will Affect Care: None marital status: Single Current Living Situation: Alone Current Living Situation Comment: lives at [facility] current occupational status: retired Feels Safe at Home: Yes Diet: other Diet Comment: gastroparesis caffeine: Yes Assistive Devices: Denture - Upper, Denture - Lower, Glasses and Walker Allergies Allergies Allergy/AdvReac Type Severity Reaction Status Date / Time simvastatin [From Zocor] Allergy Intermediate "made me Verified 11/04/23 11:35 pass out" ibuprofen Allergy Mild stomach Verified 11/04/23 11:35 pain naproxen [From Aleve] Allergy Mild STOMACH Verified 11/04/23 11:35 PAIN oxycodone [From Percocet] Allergy Mild stomach Verified 11/04/23 11:35 pain oyster extract AdvReac Gastrointestinal Verified 11/04/23 11:35 Upset scallops AdvReac Gastrointestinal Verified 11/04/23 11:35 Upset Home Meds Home Medications Medication Instructions Recorded Confirmed hydroxychloroquine 200 mg tablet 400 mg PO QPM 02/23/19 11/14/23 rivaroxaban 20 mg tablet (Xarelto) 20 mg PO QPM 02/23/19 11/14/23 lactase 3,000 unit tablet 3,000 units PO QID PRN Abdominal 05/08/19 11/14/23 Discomfort multivitamin 1 tab PO QAM 05/08/19 11/14/23 metoprolol succinate 100 mg 100 mg PO QPM 04/25/20 11/14/23 tablet,extended release 24 hr Saccharomyces boulardii 250 mg 250 mg PO QAM 04/28/21 11/14/23 capsule (Digest Probiotic (S.boulardii)) calcium carbonate 500 mg PO QAM 04/28/21 11/14/23 cetirizine 10 mg capsule (Zyrtec) 10 mg PO QAM 04/28/21 11/14/23 ekufjavs-rji-NY 200 mcg-vit K 15 1 tab PO QPM 04/28/21 11/14/23 mcg-lycope 150 erc-ilotep-egvs tablet (Ocuvite Eye Plus Multi) omeprazole 40 mg capsule,delayed 40 mg PO QAM 04/28/21 11/14/23 release spironolactone 25 mg tablet 25 mg PO QAM 03/29/22 11/14/23 orbbt-y-pzcflhpivjwsj 450 unit 450 unit PO BIDWMEAL PRN .abd 05/28/22 11/14/23 disintegrating tablet (Beano) bloating cyanocobalamin (vitamin B-12) 500 500 mcg PO DAILY 05/28/22 11/14/23 mcg tablet hydrochlorothiazide 25 mg tablet 12.5 mg PO QAM 05/28/22 11/14/23 knrblp-fvkmcxly-dmpgbvi 1 cap PO TID 05/28/22 11/14/23 6,000-19,000-30,000 unit capsule,delayed rel (Creon) mycophenolate mofetil 500 mg tablet 500 mg PO BID 05/28/22 11/14/23 prednisolone acetate 1 % eye 1 drp OPL UD 05/28/22 11/14/23 drops,suspension simethicone 80 mg chewable tablet 80 mg PO DIRECTED PRN 05/28/22 11/14/23 .gas/bloating cholecalciferol (vitamin D3) 25 10,000 unit PO QAM 11/29/22 11/14/23 mcg (1,000 unit) capsule (Vitamin D3) magnesium oxide 400 mg PO DAILY 06/16/23 11/14/23 ondansetron HCl 4 mg tablet 4 mg PO Q6H PRN Nausea And Vomiting 06/16/23 11/14/23 albuterol sulfate 1.25 mg/3 mL 2.5 mg inhalation QID 09/30/23 11/14/23 solution for nebulization furosemide 20 mg tablet 20 mg PO DAILY 11/14/23 11/14/23 iron 1 tab PO QAM 11/14/23 11/14/23 krill oil 1 cap PO DAILY 11/14/23 11/14/23 Previous Rx's Medication Instructions Recorded tramadol 37.5 mg-acetaminophen 325 1 tab PO QID PRN pain #30 tabs 11/14/18 mg tablet triamcinolone acetonide 55 mcg 2 sprays intranasal DAILY #33.8 mL 11/14/18 nasal spray aerosol (Nasacort) albuterol sulfate 90 mcg/actuation 1 puff inhalation Q6H PRN 11/08/22 aerosol inhaler (ProAir HFA) shortness of breath or wheezing #8 grams fluticasone 250 mcg-salmeterol 50 1 inh inhalation BID #180 puffs 11/08/22 mcg/dose blistr powdr for inhalation (Advair Diskus) Results & Data (ED) Vital Signs Vital Signs - 24 hr 11/14/23 11:09 11/14/23 13:00 11/14/23 13:00 Temperature 36.5 C Temperature Source Temporal Artery Scan Pulse Rate 80 Pulse Rate [Apical] 78 Respiratory Rate 20 18 Respiratory Rate [Recovery] Respiratory Effort / Characteristics Non-Labored Spontaneous Non-Labored Spontaneous Respiratory Depth Normal Normal Respiratory Pattern Regular Regular Blood Pressure 128/74 Blood Pressure [Left Arm] 112/65 Blood Pressure Mean 92 Blood Pressure Mean [Left Arm] 80 Blood Pressure Position [Left Arm] Sitting Pulse Oximetry 94 95 94 Pulse Oximetry [Recovery] Oxygen Delivery Method Room Air Room Air Room Air Oxygen Flow Rate 0 Sepsis Recent Fever Within 48 Hours No Sepsis New/Unexplained Change in Mental Status No Sepsis Action Taken by Nursing No Action Required 11/14/23 13:00 11/14/23 14:34 Temperature Temperature Source Pulse Rate 81 Pulse Rate [Apical] Respiratory Rate 18 Respiratory Rate [Recovery] 18 Respiratory Effort / Characteristics Respiratory Depth Respiratory Pattern Blood Pressure Blood Pressure [Left Arm] Blood Pressure Mean Blood Pressure Mean [Left Arm] Blood Pressure Position [Left Arm] Pulse Oximetry 94 Pulse Oximetry [Recovery] 91 Oxygen Delivery Method Room Air Room Air Oxygen Flow Rate Sepsis Recent Fever Within 48 Hours Sepsis New/Unexplained Change in Mental Status Sepsis Action Taken by [facility] Medications Current Medication List: was personally reviewed by me Laboratory Data Attestation: I reviewed the patient's lab results. 11/14/23 12:11 11/14/23 12:01 Lab Results 11/14/23 11/14/23 11/14/23 Range/Units 12:01 12:11 12:52 WBC 9.52 (4.8-10.8) K/ul RBC 3.27 L (4.20-5.40) M/uL Hgb 10.7 L (12.0-16.0) g/dl Hct 33.7 L (37.0-47.0) % MCV 103.1 H (80.0-100.0) fL MCH 32.7 (25.0-34.0) pg MCHC 31.8 L (32.0-36.0) g/dL RDW Std Deviation 50.7 H (36.4-46.3) fL RDW Coeff of Lorenzo 13.3 (11.5-14.5) % Plt Count 262 (130-400) K/uL MPV 10.4 (9.4-12.4) fL Immature Gran % (Auto) 0.3 % Neut % (Auto) 67.0 % Lymph % (Auto) 23.2 % [place] % (Auto) 8.8 % Eos % (Auto) 0.3 % Baso % (Auto) 0.4 % Neut # (Auto) 6.37 (1.40-6.50) K/uL Lymph # (Auto) 2.21 (1.20-3.40) K/uL [place] # (Auto) 0.84 H (0.11-0.59) K/uL Eos # (Auto) 0.03 (0.00-0.50) K/uL Baso # (Auto) 0.04 (0.00-0.20) K/uL Immature Gran # (Auto) 0.03 (0.01-0.20) K/uL PT 14.1 H (9.0-12.0) Seconds INR 1.3 H (0.9-1.1) APTT 33 H (21-31) Seconds PTT Ratio 1.2 Sodium 134 L (136-145) mmol/L Potassium 3.5 (3.5-5.1) mmol/L Chloride 93 L (98-107) mmol/L Carbon Dioxide 36 H (21-32) mmol/L Anion Gap 5 (3-11) BUN 13 (6-23) mg/dl Creatinine 0.23 L (0.6-1.2) mg/dl Est Cr Clr Drug Dosing Not Reportable Est GFR ( Amer) 147.8 ml/min Est GFR (Non-Af Amer) 127.5 ml/min BUN/Creatinine Ratio 56.5 H (10-20) Glucose 85 (70-99(Fasting)) mg/dl Calcium 7.7 L (8.6-10.3) mg/dl Magnesium 1.6 L (1.7-2.4) mg/dl Total Bilirubin 0.9 (0.2-1.0) mg/dl AST 42 H (13-39) U/L ALT 41 (7-52) U/L Alkaline Phosphatase 100 (34-104) U/L Troponin I High Sens 7.3 (0-14) pg/ml Total Protein 4.9 L (6.0-8.3) gm/dl Albumin 2.8 L (3.4-5.0) gm/dl Globulin 2.1 L (2.5-4.0) gm/dl Albumin/Globulin Ratio 1.3 (0.9-2) TSH 9.362 H (0.300-4.500) uIu/ml Free T4 1.23 (0.61-1.60) ng/dl SARS-CoV-2 (PCR) NEGATIVE (Negative) Influenza Type A (PCR) Negative (Neg) Influenza Type B (PCR) Negative (Neg) RSV (RT-PCR) Negative (Neg) Imaging Data Attestation: I personally reviewed and interpreted this imaging study as follows: My Impression: 1 view chest x-ray was obtained in the emergency department. My interpretation is no free air or definite infiltrate, final report below. Radiologist's Impression: Chest X-Ray 11/14/23 11:16 XR chest 1V portable CLINICAL HISTORY: Chest pain, nonspecific COMPARISON STUDY: Chest CT May 21, 2022. Chest radiograph September 22, 2023. FINDINGS: Low lung volumes are again noted. Bibasilar densities favor atelectasis. There is no evidence for pneumonia. Subtle interstitial thickening is unchanged. There is no evidence for overt pulmonary edema. Cardiac mediastinal silhouette is stable. Prominent gas-filled loops of bowel within left upper quadrant are unchanged. IMPRESSION: No acute cardiopulmonary findings. No change in appearance of the chest. ACT 112: Negative or not required by law. Electronically signed by: George Scott M.D. 11/14/2023 12:31 PM Discharge Plan Visit Data Chief Complaint: Leg Weakness, Bilateral Stated Complaint: LEG WEAKNESS, PAIN OVERALL, ANA LEGS ED Provider: Parmjit Gao Discharge Problem: Weakness, MONTES (dyspnea on exertion), Hypomagnesemia, Anemia Patient Disposition: Being Evaluated by Hospitalist Forms Stand Alone Forms: My [facility] [employer] Prescriptions Prescriptions: No Action cholecalciferol (vitamin D3) [Vitamin D3] 25 mcg (1,000 unit) capsule 10,000 unit PO QAM Rx Instructions: 10,000 albuterol sulfate 1.25 mg/3 mL solution for nebulization 2.5 mg inhalation QID lactase 3,000 unit tablet 3,000 units PO QID PRN (Reason: Abdominal Discomfort) multivitamin Tablet 1 tab PO QAM triamcinolone acetonide [Nasacort] 55 mcg aerosol,spray 2 sprays INTNAS DAILY Qty: 33.8 0RF Rx Instructions: administer into each nostril tramadol-acetaminophen 37.5-325 mg tablet 1 tab PO QID PRN (Reason: pain) Qty: 30 0RF spironolactone 25 mg tablet 25 mg PO QAM albuterol sulfate [ProAir HFA] 90 mcg/actuation HFA aerosol inhaler 1 puff INH Q6H PRN (Reason: shortness of breath or wheezing) Qty: 8 0RF fluticasone propion-salmeterol [Advair Diskus] 250-50 mcg/dose blister with device 1 inh INHALATION BID Qty: 180 3RF Xarelto 20 mg Tablet 20 mg PO QPM hydroxychloroquine 200 mg tablet 400 mg PO QPM metoprolol succinate 100 mg tablet extended release 24 hr 100 mg PO QPM omeprazole 40 mg capsule,delayed release(DR/EC) 40 mg PO QAM calcium carbonate 500 mg calcium (1,250 mg) tablet 500 mg PO QAM Saccharomyces boulardii [Digest Probiotic (S.boulardii)] 250 mg capsule 250 mg PO QAM Rx Instructions: swallow whole Zyrtec 10 mg capsule 10 mg PO QAM Ocuvite Eye Plus Multi 200-15-150 mcg tablet 1 tab PO QPM Rx Instructions: administer with a meal and a large glass of water hydrochlorothiazide 25 mg tablet 12.5 mg PO QAM Beano 450 unit Tablet,Disintegrating 450 unit PO BIDWMEAL PRN (Reason: .abd bloating) Creon 6,000-19,000 -30,000 unit capsule,delayed release(DR/EC) 1 cap PO TID Rx Instructions: do not exceed 10,000 unit/kg lipase per 24 hrs mycophenolate mofetil 500 mg tablet 500 mg PO BID prednisolone acetate 1 % drops,suspension 1 drp OPL UD Rx Instructions: 1 drop both eyes qam, 1 drop left in pm cyanocobalamin (vitamin B-12) 500 mcg Tablet 500 mcg PO DAILY simethicone 80 mg Tablet,Chewable 80 mg PO DIRECTED PRN (Reason: .gas/bloating) ondansetron HCl 4 mg Tablet 4 mg PO Q6H PRN (Reason: Nausea And Vomiting) magnesium oxide 400 mg magnesium tablet 400 mg PO DAILY furosemide 20 mg tablet 20 mg PO DAILY iron 1 tab PO QAM Rx Instructions: otc krill oil 1 cap PO DAILY Referrals Referrals: Marcia Clemente MD [Primary Care Provider] - Discharge Problem: Anemia Qualifiers: Anemia type: unspecified type Qualified Code(s): D64.9 - Anemia, unspecified
[2023-11-14 12:39] LABS: Troponin I High Sensitivity 7.3 pg/ml (0-14)
[2023-11-14 12:45] LABS: INR 1.3 (0.9-1.1); Partial Thromboplastin Ratio 1.2; Partial Thromboplastin Time 33 Seconds (21-31); Prothrombin Time 14.1 Seconds (9.0-12.0)
[2023-11-14 13:00] LABS: Magnesium 1.6 mg/dl (1.7-2.4)
[2023-11-14 13:15] LABS: Thyroid Stimulating Hormone 9.362 uIu/ml (0.300-4.500)
[2023-11-14 13:49] LABS: T4 Free Thyroxine 1.23 ng/dl (0.61-1.60)
[2023-11-14 13:49] LABS: Influenza A virus by PCR Negative (Neg); Influenza B virus by PCR Negative (Neg); RSV by PCR Negative (Neg); SARS CoV2 RNA(COVID-19) Ceph NEGATIVE (Negative)
--- NOTE | 2023-11-14 15:38 | History & Physical Report ---
Date of Service November 14, 2023 Assessment & Plan (1) Generalized weakness: Plan: Admit to med telemetry Currently stable and chronically ill-appearing but nontoxic Was sent to the ED from the [facility] cardiology clinic due to progress of generalized weakness, dyspnea on exertion, orthopnea, and paroxysmal tachycardia with ambulation without obvious cause on outpatient workup Patient has multiple possible pathologies for her weakness at this time incl uding recently increased MCV suggesting macrocytic anemia, possible poor nutritional absorption due to her chronic scleroderma, deconditioning, and chronic connective tissue disease Patient has low magnesium and calcium levels on initial workup, albumin also noted to be low at 2.8 despite patient feeling as though she is eating consistently No signs of infection at this time, platelets and LFTs are unremarkable, low suspicion for tickborne illness Will obtain anemia workup including iron levels, ferritin, B12, folic acid, and thiamine levels Will obtain ionized calcium, phosphorus levels Will obtain ESR/CRP for further evaluation of possible rheumatologic causes Will place PT/OT consults with fall/aspiration precautions If no other obvious cause at this time we will consider rheumatology/neurology for further workup Home Xarelto for DVT prophylaxis Heart healthy diet AM CBC, BMP, mag, PT/INR (2) MONTES (dyspnea on exertion): Plan: Has been experiencing progressive dyspnea on exertion and orthopnea over the past 2 to 3 months Has a known history of pulmonary fibrosis and scleroderma and reportedly had bronchitis shortly before symptoms progressed High-sensitivity troponin and chest x-ray are within normal limits No significant ECG changes compared to prior Will obtain TTE for further evaluation and continue monitor on telemetry for now Will start incentive spirometry, flutter therapy, as needed albuterol nebs Continue home breathing treatments Could consider chest CT during admission if symptoms or not improving (3) Hypomagnesemia: Plan: Mag of 1.6 on arrival Likely due to ongoing malnutrition diuretic use Was given 1 g IV mag sulfate in the ED Given additional 2 g IV mag sulfate at the time of admission as she is likely intracellular depleted Continue to monitor on telemetry for now Monitor daily renal function electrolytes (4) Macrocytic anemia: Plan: Follow workup per generalized weakness (5) Atrial fibrillation: Plan: Currently in normal sinus rhythm Continue metoprolol and Xarelto (6) Scleroderma: Plan: Continue mycophenolate and hydroxychloroquine (7) Hypertension: Plan: Currently stable Will continue hydrochlorothiazide and spironolactone Can continue Lasix for now but monitor ongoing electrolyte abnormalities Plan The patient was discussed with Dr. 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 She remained stable in the ED. Labs were significant for an MCV of 103, MCHC of 31, stable hemoglobin of 10.7, calcium of 7.7, mag of 1.6, with SARS-CoV-2/influenza/RSV screens negative. Chest x-ray was read as negative for acute changes. Prior to admission the patient was given 1 g IV mag sulfate. Patient was sitting on the side of the bed in no acute distress at the time of exam with her sister sitting bedside, history is obtained from both. The patient explains that she was seen for follow-up at the [facility] cardiology clinic due to her progressive generalized weakness, dyspnea on exertion, orthopnea. She and her sister report that the patient has been having ongoing outpatient workup for the symptoms which has reportedly been unremarkable. She explains that she has been given vitamin B12 injections recently and was reportedly started on iron supplementation without improvement of her symptoms. She explains that she cannot lie flat at night due to increased orthopnea since having a case of bronchitis in August of this past year which she completed a course of prednisone and albuterol. States that she has had progressive generalized weakness in the bilateral lower extremities and denies increased proximal muscle weakness compared to distal. States that she has been having ongoing lower extremity swelling and that she has been started increased on doses of her home diuretics without much improvement. States that while she was in the clinic today and ambulating she was reportedly tachycardic. When asked, she states that she eats 2000 gilmar a day and has been trying to eat lots of protein along with nutritional shakes without improvement in her symptoms. Her diet is limited due to her history of scleroderma with history of dysphagia and gastroparesis. No recent fever, chills, chest pain, increased cough compared to chronic, hemoptysis, abdominal pain, nausea/vomiting, dysuria/hematuria, diarrhea, rash, insect bites, or recent trauma. Her weakness is gone to the point where she needs significant help from family to stand otherwise she is concerned she will fall. They confirm that she is a full code she would want her sister to make medical decisions for her if she cannot make them herself. Please refer to Dr. Mcfarlane's attestation for any changes to treatment plan Allergies Allergy/AdvReac Type Severity Reaction Status Date / Time simvastatin [From Zocor] Allergy Intermediate "made me Verified 11/04/23 11:35 pass out" ibuprofen Allergy Mild stomach Verified 11/04/23 11:35 pain naproxen [From Aleve] Allergy Mild STOMACH Verified 11/04/23 11:35 PAIN oxycodone [From Percocet] Allergy Mild stomach Verified 11/04/23 11:35 pain oyster extract AdvReac Gastrointestinal Verified 11/04/23 11:35 Upset scallops AdvReac Gastrointestinal Verified 11/04/23 11:35 Upset Home Medications Medication Instructions Recorded Confirmed Type tramadol 37.5 mg-acetaminophen 325 1 tab PO QID PRN pain #30 tabs 11/14/18 11/14/23 Rx mg tablet triamcinolone acetonide 55 mcg 2 sprays intranasal DAILY #33.8 mL 11/14/18 11/14/23 Rx nasal spray aerosol (Nasacort) hydroxychloroquine 200 mg tablet 400 mg PO QPM 02/23/19 11/14/23 History rivaroxaban 20 mg tablet (Xarelto) 20 mg PO QPM 02/23/19 11/14/23 History lactase 3,000 unit tablet 3,000 units PO QID PRN Abdominal 05/08/19 11/14/23 History Discomfort multivitamin 1 tab PO QAM 05/08/19 11/14/23 History metoprolol succinate 100 mg 100 mg PO QPM 04/25/20 11/14/23 History tablet,extended release 24 hr Saccharomyces boulardii 250 mg 250 mg PO QAM 04/28/21 11/14/23 History capsule (Digest Probiotic (S.boulardii)) calcium carbonate 500 mg PO QAM 04/28/21 11/14/23 History cetirizine 10 mg capsule (Zyrtec) 10 mg PO QAM 04/28/21 11/14/23 History oryyvggp-ofx-ZL 200 mcg-vit K 15 1 tab PO QPM 04/28/21 11/14/23 History mcg-lycope 150 ifc-fmatva-umkq tablet (Ocuvite Eye Plus Multi) omeprazole 40 mg capsule,delayed 40 mg PO QAM 04/28/21 11/14/23 History release spironolactone 25 mg tablet 25 mg PO QAM 03/29/22 11/14/23 History ezmmv-s-ljdjynxofjvvi 450 unit 450 unit PO BIDWMEAL PRN .abd 05/28/22 11/14/23 History disintegrating tablet (Beano) bloating cyanocobalamin (vitamin B-12) 500 500 mcg PO DAILY 05/28/22 11/14/23 History mcg tablet hydrochlorothiazide 25 mg tablet 12.5 mg PO QAM 05/28/22 11/14/23 History plsdqf-egxwrzup-cnzckhx 1 cap PO TID 05/28/22 11/14/23 History 6,000-19,000-30,000 unit capsule,delayed rel (Creon) mycophenolate mofetil 500 mg tablet 500 mg PO BID 05/28/22 11/14/23 History prednisolone acetate 1 % eye 1 drp OPL UD 05/28/22 11/14/23 History drops,suspension simethicone 80 mg chewable tablet 80 mg PO DIRECTED PRN 05/28/22 11/14/23 History .gas/bloating albuterol sulfate 90 mcg/actuation 1 puff inhalation Q6H PRN 11/08/22 11/14/23 Rx aerosol inhaler (ProAir HFA) shortness of breath or wheezing #8 grams fluticasone 250 mcg-salmeterol 50 1 inh inhalation BID #180 puffs 11/08/22 11/14/23 Rx mcg/dose blistr powdr for inhalation (Advair Diskus) cholecalciferol (vitamin D3) 25 10,000 unit PO QAM 11/29/22 11/14/23 History mcg (1,000 unit) capsule (Vitamin D3) magnesium oxide 400 mg PO DAILY 06/16/23 11/14/23 History ondansetron HCl 4 mg tablet 4 mg PO Q6H PRN Nausea And Vomiting 06/16/23 11/14/23 History albuterol sulfate 1.25 mg/3 mL 2.5 mg inhalation QID 09/30/23 11/14/23 History solution for nebulization furosemide 20 mg tablet 20 mg PO DAILY 11/14/23 11/14/23 History iron 1 tab PO QAM 11/14/23 11/14/23 History krill oil 1 cap PO DAILY 11/14/23 11/14/23 History Past Med/Surg History Problem List (Updated 11/14/23 @ 16:27 by Magdy Cao PA-C) Macrocytic anemia Generalized weakness Anemia (Acute) Hypomagnesemia (Acute) MONTES (dyspnea on exertion) (Acute) Weakness (Acute) Pressure ulcer, buttock (Acute) Nausea (Acute) Decreased appetite (Acute) Pallor (Acute) Surgical wound, non healing (Acute) Induration of periwound skin Pain of right scapula Hypomagnesemia (Acute) Hypokalemia (Acute) Decubitus skin ulcer Hypomagnesemia Hypokalemia Acute respiratory failure with hypoxia Hypoxia (Acute) Bronchitis due to human metapneumovirus (hMPV) (Acute) Dyspnea on minimal exertion (Acute) Hypoxia (Acute) Acute respiratory distress (Acute) Acute bronchitis (Acute) Lumbar degenerative disc disease Stage III pressure ulcer (Acute) Gastroparesis Regurgitation of food Dysphagia Encounter for pre-operative examination Vocal cord nodules Anticoagulant long-term use Acute upper respiratory infection (Acute) History of atrial fibrillation (Acute) Pulmonary fibrosis (Acute) Atrial flutter (Acute) No significant past surgical history Allergic rhinitis caused by mold (Chronic) Allergic rhinitis due to dust mite (Chronic) Allergic rhinitis due to animal hair and dander (Chronic) Allergic rhinitis due to pollen (Chronic) GERD (gastroesophageal reflux disease) MONTES (dyspnea on exertion) (Acute) Hypertension Scleroderma Atrial fibrillation on xarelto follows with Dr. Bustamante > no pacer Raynaud's syndrome Asthma (Chronic) rare res inh use Pulmonary fibrosis (Chronic) Medical History History of COVID-19 fall 2021 Poor intravenous access "took 2 hours to get IV in for last procedure, finally needed the [place] machine to get in place, had to be put in by anesthesia" Environmental and seasonal allergies History of cardioversion x several Chronic back pain Chronic diarrhea Gastroparesis On anticoagulant therapy xarelto daily Surgical History S/P debridement (01/28/23) Abdominal Wall Wound Debridement, Skin, Subcutaneous, Fascia 15x8 - Rasheed Ward MD, FACS > pt still has at present, follows with wound clinic History of benign breast biopsy History of dilatation and curettage History of total right knee replacement (TKR) History of colonoscopy History of esophagogastroduodenoscopy (EGD) Status post fine needle biopsy on thyroid--all benign History of tooth extraction full upper History of bilateral cataract extraction History of cardiac radiofrequency ablation (~10/2020) 2020 @ [facility] [place] History of hand surgery finger surgery > right History of hernia repair History of cholecystectomy History of surgery Mutiple GI procedures for blocked bowel. History of gastric bypass [id number] Family History Father Hearing loss Brother Hearing loss Other Cancer Heart disease Hypertension No family history of adverse response to anesthesia No family history of bleeding disorder Stroke Social History Smoking Status: Never smoker Second Hand Exposure: No; Do You Dip or Chew Tobacco: No; Hx Alcohol Use: No Hx Substance Use: No Preferred Language: [place] Communication Ability: Effective Obstetric Assistant Required: No Beliefs That Will Affect Care: None marital status: Single Current Living Situation: Alone Current Living Situation Comment: lives at [facility] current occupational status: retired Feels Safe at Home: Yes Diet: other Diet Comment: gastroparesis caffeine: Yes Assistive Devices: Denture - Upper, Denture - Lower, Glasses and Walker Physical Exam Physical Exam: Physical Exam: General: In no acute distress, stated age, chronically ill-appearing but nontoxic HEENT: Normocephalic, atraumatic, no scleral icterus, pupils around round, symmetrical, and reactive to light, dry mucus membranes, trachea midline, no thyromegaly Chest/Pulm: No respiratory distress, symmetrical chest expansion, chronic fibrosis noted throughout with scattered expiratory wheezing Cardiac: RRR, no murmurs noted Abdomen: Negative for ascites and bruising, normoactive bowel sounds, soft, non-tender to palpation throughout Musculoskeletal: Symmetrical and without signs of acute trauma, no pain with palpation or movement of the bilateral upper and lower extremities Extremities: Radial, dorsalis pedis, and posterior tibial pulses are intact and symmetrical, 2+ pitting edema in the bilateral lower extremities Skin: Warm, dry, no rashes , lesions, or scars noted Neuro: Alert and oriented to person, place, month, year, and president, no focal defects, patient with 5+ strength in the upper extremities but symmetrical 3+ strength in the bilateral lower extremities, intact sensation in the bilateral lower extremities Psych: No acute distress, calm and cooperative during the exam Results & Data Results & Data Vital Signs (Past 12 Hours) Vital Signs Temp Pulse Pulse Resp Resp BP BP 11/14/23 14:34 18 11/14/23 13:00 81 18 11/14/23 13:00 11/14/23 13:00 78 18 112/65 11/14/23 11:09 36.5 C 80 20 128/74 Pulse Ox Pulse Ox O2 Del Method O2 Flow Rate 11/14/23 14:34 91 Room Air 11/14/23 13:00 94 Room Air 11/14/23 13:00 94 Room Air 0 11/14/23 13:00 95 Room Air 11/14/23 11:09 94 Room Air Laboratory Results Abnormal lab results 11/14/23 11/14/23 Range/Units 12:01 12:11 RBC 3.27 L (4.20-5.40) M/uL Hgb 10.7 L (12.0-16.0) g/dl Hct 33.7 L (37.0-47.0) % MCV 103.1 H (80.0-100.0) fL MCHC 31.8 L (32.0-36.0) g/dL RDW Std Deviation 50.7 H (36.4-46.3) fL [place] # (Auto) 0.84 H (0.11-0.59) K/uL PT 14.1 H (9.0-12.0) Seconds INR 1.3 H (0.9-1.1) APTT 33 H (21-31) Seconds Sodium 134 L (136-145) mmol/L Chloride 93 L (98-107) mmol/L Carbon Dioxide 36 H (21-32) mmol/L Creatinine 0.23 L (0.6-1.2) mg/dl BUN/Creatinine Ratio 56.5 H (10-20) Calcium 7.7 L (8.6-10.3) mg/dl Magnesium 1.6 L (1.7-2.4) mg/dl AST 42 H (13-39) U/L Total Protein 4.9 L (6.0-8.3) gm/dl Albumin 2.8 L (3.4-5.0) gm/dl Globulin 2.1 L (2.5-4.0) gm/dl TSH 9.362 H (0.300-4.500) uIu/ml Diagnostic Findings Chest X-Ray 11/14/23 11:16 XR chest 1V portable CLINICAL HISTORY: Chest pain, nonspecific COMPARISON STUDY: Chest CT May 21, 2022. Chest radiograph September 22, 2023. FINDINGS: Low lung volumes are again noted. Bibasilar densities favor atelectasis. There is no evidence for pneumonia. Subtle interstitial thickening is unchanged. There is no evidence for overt pulmonary edema. Cardiac mediastinal silhouette is stable. Prominent gas-filled loops of bowel within le ft upper quadrant are unchanged. IMPRESSION: No acute cardiopulmonary findings. No change in appearance of the chest. ACT 112: Negative or not required by law. Electronically signed by: George Scott M.D. 11/14/2023 12:31 PM Code Status & VTE Plan Code Status Full code VTE Prophylaxis Plan VTE Prophylaxis will be ordered: Yes Supervising Physician Co-Signing Physician Notes Patient seen and examined, chart reviewed, case discussed with Magdy Cao PA-C and I agree with the assessment and plan as above except as otherwise noted Labs and images reviewed History of A-fib on Xarelto, pulmonary fibrosis, scleroderma, chronic ulcers who presents with progressive weakness and dyspnea. Chest x-ray is clear. She has no leukocytosis. No chest pain. She is with a metabolic alkalosis, hypomagnesemia. Inflammatory markers are not elevated. Admitted with broad workup, optimization of electrolytes, PT/OT as above. Discussed with IV time she has no vessels amenable for ultrasound-guided, midline, or PICC line at bedside assessment. On review was able to get a peripheral IV in the foot. Agree with above PG Care Time/CCT Total # of Minutes Spent Total Time Spent with Patient: Total time spent is greater than 50% in coordination of care (as documented) at patient's floor/unit and/or counseling patient: Coding [place] [address] INT INP/OBS CARE 375MIN Patient Type Established Medical Decision Making High Complexity Diagnoses Generalized weakness R53.1 MONTES (dyspnea on exertion) R06.09 Hypomagnesemia E83.42 Macrocytic anemia D53.9 Atrial fibrillation I48.91 Scleroderma M34.9 Hypertension I10
--- OUTSIDE RECORDS SUMMARY | 2023-11-14 15:40 | External Medical Summary | Continuity of Care Document ---
Author Name Unknown Organization [facility] [address] Address [address] [place], [place] [id number] Care Team Providers Care Master [employer] Parachutist Name Role Phone Marcia Clemente Primary Care Physician [phone] Encounter [facility] [id number] Date(s): 11/01/23 - 11/01/23 [facility] [address] [facility] [address] [facility], [facility] 1 [place], [place] [phone] Encounter Diagnosis Anemia, unspecified(Final) - Finding of other specified substances, not normally found in blood(Final) - Encounter for screening for lipoid disorders(Final) - Discharge Disposition: Home or Self Care Attending Physician: MD Pearson Christopher Referring Physician: MD Pearson Christopher Allergies, Adverse Reactions, Alerts Substance Criticality Severity Reaction Reaction Severity Status ibuprofen GI Pain Active medtronidazole containing compounds stomach upset Active Lyrica anxiety Active naproxen GI Pain Active gold sodium thiomalate unknown Active Bextra Swelling Active metoclopramide Unable to assess criticality Severe elevated LFTs Active Zocor passed out lightheaded Active Celebrex Confusion GI Upset Active Percocet 7.5/325 GI Pain Act evangelina Immunizations Given and Recorded Vaccine Date Status Refusal Reason SARS COVID Vaccine Unspecified 12/08/22 Recorded RSV vaccine preF3, recombinant 10/20/22 Recorded influenza virus vaccine, inactivated 12/02/21 Edson rded influenza virus vaccine, inactivated 11/13/20 Edson rded influenza virus vaccine, inactivated 12/03/19 Edson rded influenza virus vaccine, inactivated 12/03/19 Edson rded influenza virus vaccine, inactivated 11/16/18 Give n SARS-CoV-2 mRNA (tozinameran 5y-11y) 12/02/21 Edson rded SARS-CoV-2 (COVID-19) mRNA BNT-162b2 vax 07/01/21 Recorded SARS-CoV-2 (COVID-19) mRNA BNT-162b2 vax 1 11/13/20 Recorded SARS-CoV-2 (COVID-19) mRNA BNT-162b2 vax 2 04/29/20 Recorded SARS-CoV-2 (COVID-19) mRNA BNT-162b2 vax 3 04/08/20 Recorded pneumococcal 23-valent vaccine 4 12/31/20 Recorded pneumococcal 23-valent vaccine 09/15/16 Given pneumococcal 23-valent vaccine 5 01/21/03 Recorded zoster vaccine, inactivated 6 08/07/20 Given tetanus toxoids-diphtheria, Td (Adult) 01/31/20 Gi oumar pneumococcal 13-valent vaccine 12/03/19 Recorded tetanus/diphtheria/pertuss, acel (Tdap) 7 10/29/05 Recorded 1Result Comment: 2020-11-14: Historical information-source unspecified 2Result Comment: 2020-11-14: Historical information-source unspecified 3Result Comment: 2020-11-14: Historical information-source unspecified 4Result Comment: [facility] 5Result Comment: 2020-01-31: Historical information-source unspecified 6Result Comment: Suspension [id number] 05/16/21 7Result Comment: 2020-01-31: Historical information-source unspecified Medications acetaminophen-traMADol 325 mg-37.5 mg oral tablet Start: 06/23/22 3:19:00 PM EDT, 1 tab, PO, q4h, PRN: as needed for pain Start Date: 06/23/22 Status: Ordered Advair HFA 115 mcg-21 mcg Start: 04/06/23 9:54:00 AM EST, 2 puff, inhaled, bid, Disp# 1 each, Refills: 11, rinse mouth and throat after use. patient needs HFA, not diskus given 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, Brand Medically Necessary, Pharmacy: [id number] Start Date: 04/06/23 Stop Date: 03/31/24 Status: Ordered albuterol 1.25 mg/3 mL (0.042%) inhalation solution Start: 09/22/23 2:48:00 PM EDT, 3 mL, NEB, qid, Disp# 25 each, Refills: 1, Pharmacy: [id number] Start Date: 09/22/23 Status: Ordered albuterol CFC free 90 mcg/inh MDI Start: 08/16/16 11:26:00 AM EDT, 2 puff, inhaled, qid, PRN: as needed for wheezing Start Date: 08/16/16 Status: Ordered Beano Start: 10/15/15 10:35:00 AM EDT, 450 unit =, PO, tid, PRN, PRN: abdominal bloating - gas pain Start Date: 10/15/15 Status: Ordered Centrum Silver oral tablet Start: 02/07/18 1:27:00 PM EST, 1 tab, PO, Daily Start Date: 02/07/18 Status: Ordered cephalexin 500 mg oral capsule Start: 10/20/23 7:55:00 AM EDT Start Date: 10/20/23 Status: Ordered Creon 6000 units oral delayed release capsule Start: 05/10/23 1:21:00 PM EDT, See Instructions, Disp# 270 cap, Refills: 3, TAKE 1 CAPSULE BY MOUTHTHREE TIMES DAILY, Pharmacy: [id number] Start Date: 05/10/23 Status: Ordered cyanocobalamin 500 mcg oral tablet Start: 08/16/16 11:11:00 AM EDT, 1 tab, PO, Daily Start Date: 08/16/16 Status: Ordered Eye Vitamin Start: 11/16/16 2:39:00 PM EDT, Eye Vitamin, 1 tab, PO, Daily, 2200 mg Fuish Oil 2000 mg Vit D 10 mgLutein 2 mg zeaxanthin Start Date: 11/16/16 Status: Ordered hydroCHLOROthiazide 25 mg oral tablet Start: 11/03/23 2:22:00 PM EDT, 0.5 tab, PO, Daily, Disp# 45 tab, Refills: 3, Pharmacy: [id number] Start Date: 11/03/23 Status: Ordered inhaler spacer Start: 12/14/21 3:53:00 PM EDT, See Instructions, Disp# 1 each, Use spacer whenever using inhaler, Pharmacy: [id number] Start Date: 12/14/21 Status: Ordered lactase Start: 10/15/15 10:34:00 AM EDT, PO, ac, with meals, PRN: As needed Start Date: 10/15/15 Status: Ordered magnesium oxide Start: 08/12/22 12:50:00 PM EDT, daily Start Date: 08/12/22 Status: Ordered Metoprolol Succinate ER 100 mg oral tablet, extended release Start: 05/12/23 1:31:00 PM EDT, See Instructions, Disp# 90 tab, Refills: 3, TAKE 1 TABLET BY MOUTH ONCE DAILY, Pharmacy: [id number] Start Date: 05/12/23 Status: Ordered Mucinex Start: 05/28/22 10:00:00 AM EDT, as needed Start Date: 05/28/22 Status: Ordered mycophenolate mofetil 500 mg oral tablet Start: 01/28/22 10:50:00 AM EST, 2 tab, PO, Daily Start Date: 01/28/22 Status: Ordered Nasacort Allergy 24HR Start: 03/04/15 3:19:00 PM EST, 2 spray, intranasal, Daily, PRN: allergy symptoms Start Date: 03/04/15 Status: Ordered Nature's Bounty Red Krill Oil 500 mg oral capsule Start: 06/23/22 3:22:00 PM EDT Start Date: 06/23/22 Status: Ordered nystatin 100,000 units/mL oral suspension Start: 10/10/23 4:42:00 PM EDT, 5 mL, PO, qid, Disp# 200 mL, Refills: 0, Pharmacy: [id number] Start Date: 10/10/23 Stop Date: 10/20/23 Status: Ordered omeprazole 40 mg oral delayed release capsule Start: 05/10/23 1:21:00 PM EDT, 1 cap, PO, Daily, Disp# 90 cap, Refills: 3, Pharmacy: [id number] Start Date: 05/10/23 Stop Date: 05/04/24 Status: Ordered Prednisol 1% ophthalmic solution Start: 12/04/19 2:04:00 PM EDT, both eyes, both eyes qAM, left eye qPM. Start Date: 12/04/19 Status: Ordered spironolactone 25 mg oral tablet Start: 03/28/23 9:56:00 AM EST, 1 tab, PO, Daily, Disp# 90 tab, Refills: 3, Pharmacy: [id number] Start Date: 03/28/23 Status: Ordered Tums 500 (1250 mg calcium carbonate) oral tablet, chewable Start: 08/16/16 10:55:00 AM EDT, 1 tab, PO, Daily, gi distress, PRN: Abdominal bloating - gas pain Start Date: 08/16/16 Status: Ordered Vitamin D3 Start: 11/16/16 2:38:00 PM EDT, 5,000 Int_Unit =, PO, Daily Start Date: 11/16/16 Status: Ordered Xarelto 20 mg oral tablet Start: 10/18/23 9:51:00 AM EDT, 1 tab, PO, qPM, Disp# 90 tab, Refills: 3, Pharmacy: [id number] Start Date: 10/18/23 Status: Ordered Zofran 4 mg oral tablet Start: 05/10/23 1:21:00 PM EDT, 1 tab, PO, Daily, Disp# 90 tab, Refills: 3, PRN: as needed for nausea/vomiting, Pharmacy: [id number] Start Date: 05/10/23 Stop Date: 05/04/24 Status: Ordered ZyrTEC 10 mg oral tablet Start: 08/16/16 11:19:00 AM EDT, 1 tab, PO, Daily Start Date: 08/16/16 Status: Ordered Problem List Condition Confirmation Course Effective Dates Status H ealth Status Informant Allergic rhinitis Confirmed Active Asthma Confirmed Active Atrial fibrillation Confirmed Active Chronic diarrhea Confirmed Active DYSPHAGIA Confirmed Active Pulmonary interstitial fibrosis Confirmed Active GERD with stricture Confirmed Active Gastroparesis Confirmed Active S/P ablation of atrial fibrillation Confirmed Active Hx of gastric bypass 1 Confirmed Active Hyperlipidemia Confirmed Active Hypertension Confirmed Active Hypoproteinemia Confirmed Active Iron deficiency Confirmed Active LFTs abnormal Confirmed Active Long-term current use of anticoagulant Confirmed Active Macrocytic anemia Confirmed Active 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 After bowel surgery - BMD dropped - Started on reclast [id number]. [facility] 7[facility] - 2016 - normal Procedures Procedure Date Related Diagnosis Body Site Status Mammogram 1 08/08/23 Completed Colonoscopy 2 06/29/23 Completed Repair of wound of abdominal wall 3 01/28/23 Completed Chest X-ray 4 05/28/22 Completed Chest X-ray 5 05/21/[address] angiography of chest with contrast 6 05/21/22 Completed Upper GI (gastrointestinal) endoscopy 7, 8 05/05/21 Completed Gastric emptying study 9 02/25/21 Completed Abomen; right lower quadrant 10 12/30/20 Completed Cardiac ablation using fluor oscopy guidance 11/26/20 Completed Thyroid Ultrasound 11 08/11/20 Com pleted Mammography 12, 13 07/31/20 Comple alex Cardioversion 02/28/20 Completed DEXA - dual energy X-ray absorptiometry 14 01/19/19 Completed Ultrasound of the pelvis 15 11/20/18 Completed Thyroid ultrasound 16 10/25/18 Com pleted Mammogram - screening 17 02/14/18 Completed Ultrasound scan of neck and head soft tissue 18 02/06/18 Completed X-ray of finger right second digit 19 12/13/17 Completed Mammogram diagnostic right 20, 21 08/12/[address] 22 08/01/17 Completed Bone density scan 23 01/18/17 Comp leted Ultrasound scan of thyroid 24 01/18/17 Completed Chest x-ray 25 01/06/17 Completed Mammogram diag right 26 12/15/16 C ompleted Mammogram - screening 27 12/07/16 Completed Mammogram - screening Bilateral 28 12/07/16 Completed Repair of abdominal wall/rec urrent incisional hernia site 29 09/08/16 Comple alex Upper GI endoscopy 12/29/15 Comple alex Laparoscopic repair of incis ional hernia 10/31/15 Completed bowel resection 10/2015 Comple alex PFT 31 03/10/15 Completed Colonoscopy 08/2014 Completed Cholecystectomy 02/2012 Completed right knee replacement 02/2010 Co mpleted Aspiration of peritoneal drain 2009 Completed Bowel obstruction 2009 Complet ed Placement of gastrostomy tube 2009 Completed Bowel obstruction 2008 Comp leted Bowel obstruction 2007 Complet ed Gastric bypass operation 2006 Completed Dilation and curettage 1991 Co mpleted 1IMPRESSION: ACR BI-RADS CATEGORY 2: BENIGN There is no mammographic evidence of malignancy. A 1 year screening mammogram is recommended 2The rectum, sigmoid colon, descending colon, splenic flexure, transverse colon, hepatic flexure, ascending colon, cecum and tecto-sigmoid colon are normal. No specimens collected. Repeat in 10 years. 3Necrotic non-healing abdominal wall wound surgery - Dr. Ward 4Impression: No acute abnormalities and in particular no radiographic evidence of pneumonia. 5impression: no acute abnormalities and inparticular no radiographic evidence of pneumonia 6IMPRESSION: 1. No definite pulmonary embolus identified. 2. Mildly prominent bronchial orr may represent bronchitis. 3. Nonspecific small nodules in the right middle lobe, measuring up to 6 mm. Infectious/inflammatory process is not excluded. These are new compared to prior exam and could be further evaluated on follow-up exam in 12 months if patient has low risk or in 6-12 months if patient is at high risk. 4. Atherosclerotic changes of the aorta. No aortic aneurysm or dissection. 5. Prominent hepatic steatosis. 6. Scattered atelectasis and mild chronic interstitial lung disease. No other focal consolidation. 7-Z line regular, 40cm from the incisors. -Gastric bypass with a pouch 5 cm in length and intact staple line. Biopsies obtained. Gastrojejunal anastomosis characterized by ulceration and visible sutures. -Normal examined jejunum. -No specimens collected. 8Pathology results: Stomach gastric pouch, biopsy: Minimally and focally inflamed benign gastric mucosa is seen. Atrophy and intestinal metaplasia are not seen. H. pylori organisms are not seen on immunohistochemical stain. A dilated pit is identified. The clinical Hx of gastroparesis is noted. 9Severe delayed gastric emptying with gastroesophageal reflux 10Impression: Unremarkable exam. 11Impression: Multinodular thyroid gland with a dominant 17mm nodule within the upper pole of the right thyroid lobe. Ultrasound guided fine needle aspiration of this nodule is recommended. 12Prior outside mammograms dated 02/14/2018, 08/12/2017, 12/07/2016 from [facility] have become available comparison. Compared to prior exams, there has been no significant interval change. There is no mammographic evidence of malignancy in either breast. Recommend routine bilateral screening mammograms in 1 year. 13No mammographic evidence of malignancy in either breast. However, recommend comparison with prior outside mammograms to evaluate for any possible subtle changes. The prior outside mammograms have been requested, and an addendum will be made when they are received and a comparison is made. 14AP Spine L1-L2 is 0.880 g/cm2 with a T-score of -2.4 Femur Neck Left is 0.674 g/cm2 with a T-score of -2.6 Femur Neck Right is 0.704 g/cm2 with a T-score of -2.4 Femur Total Mean is 0.679 g/cm2 with a T-score of -2.6 With a Z-Score of -1.4, this patient's BMD is low for someone of this age 89. No acute sonographic abnormality is identified in the pelvis 2. The endometrial stripe measures up to 1 mm in thickness 3. Trace fluid within the endometrial canal is nonspecific and likely related to atrophy. clinical correlation will be required. 16Multinodular thyroid gland as described above with the dominant nodule on the right measuring 1.4 cm. Comparison to old studies would be helpful to assess for stability. Follow-up recommended to ensure stability. 17Interpretation: There are scattered areas of fibroglandular density No dominant mass or suspicious appearing clustered microcalcifications seen. No skin thickening of venous enlargment noted. Vascular calcifications in both breast noted. Microcalcifications in the right breast with a nearbya biopsy marker clip again noted. No definite change since prior exam. 18Impression: Multiple bilateral solid nodules with the largest on the right measuring 1.6 cm. Grossly unchanged. Clinical correlation and follow-up if biopsy has not already been performed. 19Impression: No acute bony abnormalities identified. Soft tissue calcifications suspicous for scleroderma 20Annual screening mammogram is recommended:; unless clinically indicated eariler 21Impression: No mammographic evidnence of malignancy. 22Impression: Findings suggests a chronic multilobar interstitial inflammatory process with early subpleural fibrosis in the lung bases. No dense consolitdation, large effusion or pneumothorax identified. Non-emergent findings and recommendations above. 23T-score: -2.7 24Impression: multiple nodules Biopsy is recommended for a 2.0 cm heterogeneous solid nodule in the right lobe that contains microcalcifications. Continued followup os recommended for other bilateral nodules measuring 1 cm or less. 25Impression: mld perihilar vascular congestion, not seen on prior study No gross focal consolidation 26Impression: Birads 4- SUSPICIOUS-BIOPSY RECOMMENDED. Indeterminate grouping of developing microcalcifications in the right breast which stereotactic guided core biopsy is recommended. 27Impression: needs additional imaging Grouping of calcifications in the right breast require magnification views in the mediolateral and craniocaudal projections along with routine mediolateral view of the breast for further evaluation. 28Impression: There are scattered areas of fibroglandular density. Benign calcification are visualized. Right breast: Grouping of calcifications in the anterior central to slightly lateral brast require additional imaging to better assess their morphology. No suspicious masses or architectural distortion are visualized. Left Breast: No suspicious masses, suspicious calcifications or architectural distortion are visualized. 29OPERATION PERFORMED: Recurrent incisional hernia repair. Lysis of adhesions greater than 3 hours. Mesh explant (complete excision of infected Strattice mesh). Gastric wedge resection (takedown of old gastrostomy site). Myofascial advancement flaps (bilateral release of posterior rectus sheath, bilateral release of transversus abdominis aponeurosis.) Mesh implantation (30.5 x 30.5 Bard soft mesh.) Full-thickness abdominal wall debridement including skin, scar, subcutaneous tissue, sinus tract mesh fascia, hernia sac. VAC dressing application (VAC dressing placed on partially closed skin). Bilateral transversus abdominis plane block (20 mL of liposomal bupivacaine). 30section of bowel 31Test was adequately performed Spirometry is normal dlco is normal flow volume loop normal no post bronchodilator studies or lung vol;umes have been tested Impression: normal study 32x2 and a surgery for infection Results Laboratory List Name Date Complete Blood Count w Differential (CBC ,DIFFH) 11/01/23 Comprehensive Metabolic Panel (COMP META B PANEL) 11/01/23 Folic Acid Level (FOLIC ACID) 11/01/23 Lipid Profile (LIPOPROTEINS) 11/01/23 Most recent to oldest [Reference Range]: 1 eGFR CKD-EPI [>60 mL/min/1.73 m2] >90 mL /min/1.73 m2 (11/01/23 1:16 PM) Non-HDL 41 mg/dL (11/01/23 1:16 PM) Estimated CrCl 148.23 mL/min (11/01/23 8:53 PM) MPV [9.0-12.2 fL] 11.3 fL (11/01/23 1:16 PM) Immature Gran% 1.0 % (11/01/23 1:16 PM) Neut% 70.4 % (11/01/23 1:16 PM) Lymph% 20.8 % (11/01/23 1:16 PM) Blanco% 6.7 % (11/01/23 1:16 PM) Baso% 0.6 % (11/01/23 1:16 PM) Eos% 0.5 % (11/01/23 1:16 PM) Immat Gran, Abs [0-0.4 K/uL] 0.08 K/uL (11/01/23 1:16 PM) Neut, Abs [2.0-7.7 K/uL] 5.86 K/uL (11/01/23 1:16 PM) Lymph, Abs [1.0-3.4 K/uL] 1.73 K/uL (11/01/23 1:16 PM) Blanco, Abs [0-1.0 K/uL] 0.56 K/uL (11/01/23 1:16 PM) Baso, Abs [0-0.1 K/uL] 0.05 K/uL (11/01/23 1:16 PM) Eos, Abs [0-0.5 K/uL] 0.04 K/uL (11/01/23 1:16 PM) Type of Diff: AUTO *Unknown* (11/01/23 1:16 PM) RDW [11.5-14.2 %] 13.9 % (11/01/23 1:16 PM) Anion Gap [5-14 mmol/L] 12 mmol/L (11/01/23 1:16 PM) Alb [3.5-5.2 g/dL] 2.9 g/dL *LOW* (11/01/23 1:16 PM) Alk Phos [35-115 unit/L] 120 unit/L 1 *HI* (11/01/23 1:16 PM) ALT [0-33 unit/L] 53 unit/L *HI* (11/01/23 1:16 PM) AST [0-32 unit/L] 58 unit/L *HI* (11/01/23 1:16 PM) BUN [6-23 mg/dL] 12 mg/dL (11/01/23 1:16 PM) Ca [8.4-10.2 mg/dL] 7.6 mg/dL *LOW* (11/01/23 1:16 PM) Chol/HDL 2 (11/01/23 1:16 PM) Chol [<200 mg/dL] 72 mg/dL (11/01/23 1:16 PM) Cl- [98-107 mmol/L] 96 mmol/L *LOW* (11/01/23 1:16 PM) HCO3 [22-29 mmol/L] 28 mmol/L (11/01/23 1:16 PM) Cret [0.60-1.00 mg/dL] 0.33 mg/dL *LOW* (11/01/23 1:16 PM) Folate [>7.2 ng/mL] >20.0 ng/mL (11/01/23 1:16 PM) Glu [74-109 mg/dL] 88 mg/dL 2 (11/01/23 1:16 PM) Hct [35-44 %] 34.6 % *LOW* (11/01/23 1:16 PM) HDL [>40 mg/dL] 31 mg/dL *LOW* (11/01/23 1:16 PM) Hgb [11.7-15.0 g/dL] 10.8 g/dL *LOW* (11/01/23 1:16 PM) K [3.5-5.1 mmol/L] 3.4 mmol/L *LOW* (11/01/23 1:16 PM) LDL Chol, Calculated [50-130 mg/dL] 27 m g/dL *LOW* (11/01/23 1:16 PM) MCH [28-33 pg] 35.1 pg *HI* (11/01/23 1:16 PM) MCHC [32-36 g/dL] 31.2 g/dL *LOW* (11/01/23 1:16 PM) MCV [81-96 fL] 112.3 fL *HI* (11/01/23 1:16 PM) Na [136-145 mmol/L] 136 mmol/L (11/01/23 1:16 PM) Plts [150-350 K/uL] 317 K/uL (11/01/23 1:16 PM) RBC [3.90-5.00 M/uL] 3.08 M/uL *LOW* (11/01/23 1:16 PM) T Bili [0.0-1.2 mg/dL] 0.8 mg/dL (11/01/23 1:16 PM) Prot [6.4-8.3 g/dL] 5.3 g/dL *LOW* (11/01/23 1:16 PM) TG [<150 mg/dL] 72 mg/dL (11/01/23 1:16 PM) WBC [4.0-10.4 K/uL] 8.32 K/uL (11/01/23 1:16 PM) 1Result Comment: Low levels of ALKP may indicate a deficiency in zinc, magnesium, or malnutritionbutcan also be an indicator of a rare genetic disease hypophosphatasia (HPP). 2Result Comment: ADA recommendation for FASTING Serum/Plasma Glucose: Normal: 70-100 mg/dL Prediabetes: 100-125 mg/dL Diabetes: 126 mg/dL or higher Social History Social History Type Response Smoking Status Never smoked cigaret calli Sex Female Sex Representation Female (finding) Patient Care team information Care Team Personnel Name: NEELIMA Solis, Shelia Garcia Position: Physician Asst Exmpt - Family Med Member Role: Lifetime Relationship Address: [address] [place] [address] [place] Name: GONZALO Lee Melvin J Position: Nurse Pract - Card Electrophys Member Role: Lifetime Relationship Address: [address] [place] [address] [address] [place] [address] [place] Name: GONZALO Malone Stacey L Position: Nurse Pract - Cardiology Member Role: Lifetime Relationship Address: [address] [place] [address] [place] Name: Romina Sanchez Alisha Position: Pharmacist Member Role: Pharmacy - Lifetime Name: GONZALO Briscoe Michelle C Position: Nurse Pract - Card Electrophys Member Role: Lifetime Relationship Address: [address] [place] [address] [place] Name: MD Clemente Madhavi Position: Physician - Family Med Member Role: Primary Care Provider Address: [address] [place] [address] [place] Name: Romina Frankel Brittani Position: Pharmacist Member Role: Pharmacy - Lifetime Name: GONZALO Vickers Bonnie D Position: Nurse Pract - Surgery MIS Member Role: Lifetime Relationship Address: [address] [place] [address] [place] Care Team Related Persons Name: TR LAMBERT Name: NIKOLE, ALEXANDER Bonilla
--- OUTSIDE RECORDS SUMMARY | 2023-11-14 15:40 | External Medical Summary | Continuity of Care Document ---
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 Name Role Phone Marcia Clemente Primary Care Physician [phone] [facility]counter [facility] [id number] Date(s): 10/19/23 - 10/19/23 [facility] [address] [facility] [address] [facility] [address] [place], [place] [phone] Encounter Diagnosis Elevation of levels of liver transaminase levels(Final) - Elevated white blood cell count, unspecified(Final) - Discharge Disposition: Home or Self Care Attending Physician: MD Clemente Madhavi Referring Physician: MD Clemente Madhavi Allergies, Adverse Reactions, Alerts Substance Criticality Severity Reaction Reaction Severity Status ibuprofen GI Pain Active naproxen GI Pain Active gold sodium thiomalate unknown Active metoclopramide Unable to assess criticality Severe elevated LFTs Active medtronidazole containing compounds stomach upset Active Zocor passed out lightheaded Active Bextra Swelling Active Celebrex Confusion GI Upset Active Percocet 7.5/325 GI Pain Act evangelina Lyrica anxiety Active Immunizations Given and Recorded Vaccine Date Status [...] Comment: 2020-11-14: Historical information-source unspecified 4Result Comment: [facility] 5Result Comment: 2020-01-31: Historical information-source unspecified [...] 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, Brand Medically Necessary, Pharmacy: [id number] Start Date: 04/06/23 Stop Date: 03/31/24 Status: Ordered albuterol 1.25 mg/3 mL (0.042%) inhalation solution Start: 09/22/23 2:48:00 PM EDT, 3 mL, NEB, qid, Disp# 25 each, Refills: 1, Pharmacy: [id number] Start Date: 09/22/23 Status: Ordered [...] 1 CAPSULE BY MOUTHTHREE TIMES DAILY, Pharmacy: [id number] Start Date: 05/10/23 Status: Ordered cyanocobalamin 500 mcg oral tablet Start: 08/16/16 11:11:00 AM EDT, 1 tab, PO, Daily Start Date: 08/16/16 Status: Ordered Eye Vitamin Start: 11/16/16 2:39:00 PM EDT, Eye Vitamin, 1 tab, PO, Daily, 2200 mg Fuish Oil 2000 mg Vit D 10 mgLutein 2 mg zeaxanthin Start Date: 11/16/16 Status: Ordered hydroCHLOROthiazide 25 mg oral tablet Start: 10/22/22 10:55:00 AM EDT, 0.5 tab, PO, Daily, Disp# 90 tab, Refills: 3, Pharmacy: [id number] Start Date: 10/22/22 Status: Ordered inhaler spacer Start: 12/14/21 3:53:00 PM EDT, See Instructions, Disp# 1 each, Use spacer whenever using inhaler, Pharmacy: [id number] Start Date: 12/14/21 Status: Ordered [...] 1 TABLET BY MOUTH ONCE DAILY, Pharmacy: [id number] Start Date: 05/12/23 Status: Ordered Mucinex Start: 05/28/22 10:00:00 AM EDT, as needed Start Date: 05/28/22 Status: Ordered mycophenolate mofetil 500 mg oral tablet Start: 01/28/22 10:50:00 AM EST, 2 tab, PO, Daily Start Date: 01/28/22 Status: Ordered Nasacort Allergy 24HR Start: 03/04/15 3:19:00 PM EST, 2 spray, intranasal, Daily, PRN: allergy symptoms Start Date: 03/04/15 Status: Ordered [employer]'s Bounty Red Krill Oil 500 mg oral capsule Start: 06/23/22 3:22:00 PM EDT Start Date: 06/23/22 Status: Ordered nystatin 100,000 units/mL oral suspension Start: 10/10/23 4:42:00 PM EDT, 5 mL, PO, qid, Disp# 200 mL, Refills: 0, Pharmacy: [id number] Start Date: 10/10/23 Stop Date: 10/20/23 Status: Ordered omeprazole 40 mg oral delayed release capsule Start: 05/10/23 1:21:00 PM EDT, 1 cap, PO, Daily, Disp# 90 cap, Refills: 3, Pharmacy: [facility] Start Date: 05/10/23 Stop Date: 05/04/24 Status: Ordered Prednisol 1% ophthalmic solution Start: 12/04/19 2:04:00 PM EDT, both eyes, both eyes qAM, left eye qPM. Start Date: 12/04/19 Status: Ordered spironolactone 25 mg oral tablet Start: 03/28/23 9:56:00 AM EST, 1 tab, PO, Daily, Disp# 90 tab, Refills: 3, Pharmacy: [facility] Start Date: 03/28/23 Status: Ordered [...] qPM, Disp# 90 tab, Refills: 3, Pharmacy: [facility] Start Date: 10/18/23 Status: Ordered Zofran 4 mg oral tablet Start: 05/10/23 1:21:00 PM EDT, 1 tab, PO, Daily, Disp# 90 tab, Refills: 3, PRN: as needed for nausea/vomiting, Pharmacy: [id number] Start Date: 05/10/23 Stop Date: [...] Active 1for weight and uncontrolled DM 2sees pulmonary - [facility] 3PFT 04/04/17 4Has had reclast from 2014 to 2019 5Was on Boniva - - Improved bone density and stopped med. After bowel surgery - BMD dropped - Started on reclast [id number]. 6Dr Arabella - [facility] [place] 7last biopsy - 2016 - normal Procedures [...] incis ional hernia 10/31/15 Completed bowel resection 30 10/2015 Comple alex PFT 31 03/10/15 Completed Colonoscopy 08/2014 Completed Cholecystectomy 02/2012 Completed right knee replacement 02/2010 Co mpleted Aspiration of peritoneal drain 2009 Completed Bowel obstruction 2009 Complet ed Placement of gastrostomy tube 2009 Completed Bowel obstruction 32 2008 Comp leted Bowel obstruction 2007 Complet [...] outside mammograms dated 02/14/2018, 08/12/2017, 12/07/2016 from [facility] have become available comparison. Compared to prior [...] Complete Blood Count w Differential (CBC ,DIFFH) 10/19/23 Hepatic Function Panel (HEPATIC FUNCT PA HARSH) 10/19/23 Most recent to oldest [Reference Range]: 1 MPV [9.0-12.2 fL] 11.5 fL (10/19/23 1:28 PM) Immature Gran% 0.7 % (10/19/23 1:28 PM) Neut% 63.9 % (10/19/23 1:28 PM) Lymph% 25.7 % (10/19/23 1:28 PM) [place]% 8.4 % (10/19/23 1:28 PM) Baso% 0.5 % (10/19/23 1:28 PM) Eos% 0.8 % (10/19/23 1:28 PM) Immat Gran, Abs [0-0.4 K/uL] 0.08 K/uL (10/19/23 1:28 PM) Neut, Abs [2.0-7.7 K/uL] 7.19 K/uL (10/19/23 1:28 PM) Lymph, Abs [1.0-3.4 K/uL] 2.89 K/uL (10/19/23 1:28 PM) [place], Abs [0-1.0 K/uL] 0.94 K/uL (10/19/23 1:28 PM) Baso, Abs [0-0.1 K/uL] 0.06 K/uL (10/19/23 1:28 PM) Eos, Abs [0-0.5 K/uL] 0.09 K/uL (10/19/23 1:28 PM) Type of Diff: AUTO *Unknown* (10/19/23: PM) RDW [11.5-14.2 %] 17.8 % *HI* (10/19/23 1: PM) Alb [3.5-5.0 g/dL] 2.8 g/dL *LOW* (10/19/23 1: PM) Alk Phos [38-126 unit/L] 100 unit/L (10/19/23: PM) ALT [<35 unit/L] 69 unit/L *HI* (10/19/23 1: PM) AST [15-46 unit/L] 64 unit/L *HI* (10/19/23 1: PM) D Bili [0.0-0.6 mg/dL] 0.3 mg/dL (10/19/23 1:28 PM) Hct [35-44 %] 32.8 % *LOW* (10/19/23 1: PM) Hgb [11.7-15.0 g/dL] 10.0 g/dL *LOW* (10/19/23 1:28 PM) MCH [28-33 pg] 32.8 pg (10/19/23 1:28 PM) MCHC [32-36 g/dL] 30.5 g/dL *LOW* (10/19/23 1:28 PM) MCV [81-96 fL] 107.5 fL *HI* (10/19/23 1:28 PM) Plts [150-350 K/uL] 218 K/uL (10/19/23 1:28 PM) RBC [3.90-5.00 M/uL] 3.05 M/uL *LOW* (10/19/23 1:28 PM) T Bili [0.2-1.3 mg/dL] 1.3 mg/dL (10/19/23 1:28 PM) Prot [6.3-8.2 g/dL] 5.7 g/dL 1 *LOW* (10/19/23 1:28 PM) WBC [4.0-10.4 K/uL] 11.25 K/uL *HI* (10/19/23 1:28 PM) 1Result Comment: Testing Performed By: Dept of Pathology [facility], [address] [place] [address] Social History Social History Type Response Smoking Status Never smoked cigaret calli Sex Female Sex Representation Female (finding) Patient Care team information Care Team Personnel Name: NEELIMA Solis, Shelia Garcia Position: Physician Asst Exmpt - Family Med Member Role: Lifetime Relationship Address: [address] [place] [address] [place] Name: GONZALO Lee Melvin J Position: Nurse Pract - Card Electrophys Member Role: Lifetime Relationship Address: [address] [place] [address] [place] Name: GONZALO Malone Stacey L Position: Nurse Pract - Cardiology Member Role: Lifetime Relationship Address: [address] [place] [address] [place] Name: Romina Sanchez Alisha Position: Pharmacist Member Role: Pharmacy - Lifetime Name: GONZALO Briscoe Michelle C Position: Nurse Pract - Card Electrophys Member Role: Lifetime Relationship Address: [address] [place] [address] [place] Name: MD Clemente Madhavi Position: Physician - Family Med Member Role: Primary Care Provider Address: [address] [facility] [address] [place] [address] [place] Name: Romina Frankel Brittani Position: Pharmacist Member Role: Pharmacy - Lifetime Name: GONZALO Vickers Bonnie D Position: Nurse Pract - Surgery MIS Member Role: Lifetime Relationship Address: [address] [place], [place] [id number] [id number] [place] Care Team Related Persons Name: TR LAMBERT Name: NIKOLE, ALEXANDER Bonilla
--- OUTSIDE RECORDS SUMMARY | 2023-11-14 15:40 | External Medical Summary | Continuity of Care Document ---
Author Name Unknown Organization [facility] [address] [facility] [address] [place] [phone] Care Team Providers Care Shank Boner Name Role Phone Marcia Clemente Primary Care Physician [phone] Encounter [facility] [id number] Date(s): 11/08/23 - 11/08/23 [facility] 0 [address] [facility] 207 [facility] 1850 [facility], [facility] 207 [place] [address] [place] [phone] Encounter Diagnosis Macrocytic anemia(Discharge Diagnosis) - 11/08/23 History of gastric bypass(Discharge Diagnosis) - 11/08/23 Transaminitis(Discharge Diagnosis) - 11/08/23 Lower extremity edema(Discharge Diagnosis) - 11/08/23 Atrial fibrillation(Discharge Diagnosis) - 11/08/23 Discharge Disposition: Home or Self Care Attending Physician: MD Pearson Christopher Allergies, Adverse Reactions, Alerts Substance Criticality Severity Reaction Reaction Severity Status ibuprofen GI Pain Active naproxen GI Pain Active Lyrica anxiety Active gold sodium thiomalate unknown Active Bextra Swelling Active metoclopramide Unable to assess criticality Severe elevated LFTs Active medtronidazole containing compounds stomach upset Active Zocor passed out lightheaded Active Celebrex Confusion GI Upset Active Percocet 7.5/325 GI Pain Act evangelina Assessment and Plan Extracted from: Title:Lab f/u, edema Author:DO Dunbar Soph ia Elizabeth Date:11/08/23 1.Macrocytic anemia - chronic, not at goal - goal: diagnostic clarity - unclear etiology; folate, B12/MMA WNL - repeat CBC ordered, in addition to iron panel - referredto hematology for further work up 2.History of gastric bypass - chronic, not at goal - goal: monitoring - bariatric surgery post op labs ordered including CBC, CMP, copper, ferritin, iron panel, magnesium, etc 3.Transaminitis - undifferentiated new problem with uncertain prognosis - goal: diagnostic clarity - unclear etiology; liver etiology vs. hepatic congestion secondary to fluid overload - hep C screening negative; hep A and hep B ordered to complete work up - pt does have a hx of fatty liver on US (04/2023); consider referral to GI if primary liver source 4.Lower extremity edema - acute, complicated - goal: resolution, diagnostic clarity - pt had previously been off HCTZ/spironolactone d/t concerns for hypotension - will switch HCTZ for furosemide 20mg daily, continue spironolactone - concern for fluid overload secondary to pulmonary HTN; pt scheduled to have yearly echo in Nov- will forward today's note to pt's regional education coordinator for consideration of sooner echo and f/u - f/u in office in 1 week 5.Atrial fibrillation - chronic, not at goal - goal: monitoring - per pt, has not had any episodes since ablation (~1.5 yrs ago) - unclear if afib contributing to current hypervolemic state; rate controlled in office - f/u in 1 week Immunizations Given and Recorded Vaccine Date Status [...] Comment: 2020-11-14: Historical information-source unspecified 4Result Comment: [facility] 5Result Comment: 2020-01-31: Historical information-source unspecified [...] 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, Brand Medically Necessary, Pharmacy: [id number] Start Date: 04/06/23 Stop Date: 03/31/24 Status: Ordered albuterol 1.25 mg/3 mL (0.042%) inhalation solution Start: 09/22/23 2:48:00 PM EDT, 3 mL, NEB, qid, Disp# 25 each, Refills: 1, Pharmacy: [id number] Start Date: 09/22/23 Status: [...] 1 CAPSULE BY MOUTHTHREE TIMES DAILY, Pharmacy: [id number] Start Date: 05/10/23 Status: Ordered cyanocobalamin 500 mcg oral tablet Start: 08/16/16 11:11:00 AM EDT, 1 tab, PO, Daily Start Date: 08/16/16 Status: Ordered Eye Vitamin Start: 11/16/16 2:39:00 PM EDT, Eye Vitamin, 1 tab, PO, Daily, 2200 mg Fuish Oil 2000 mg Vit D 10 mgLutein 2 mg zeaxanthin Start Date: 11/16/16 Status: Ordered inhaler spacer Start: 12/14/21 3:53:00 PM EDT, See Instructions, Disp# 1 each, Use spacer whenever using inhaler, Pharmacy: [id number] Start Date: 12/14/21 Status: Ordered lactase Start: 10/15/15 10:34:00 AM EDT, PO, ac, with meals, PRN: As needed Start Date: 10/15/15 Status: Ordered Lasix 20 mg oral tablet Start: 11/08/23 11:16:00 AM EDT, 1 tab, PO, Daily, Disp# 30 tab, Refills: 2, Pharmacy: [id number] Start Date: 11/08/23 Status: Ordered magnesium oxide Start: 08/12/22 12:50:00 PM EDT, daily Start Date: 08/12/22 Status: Ordered Metoprolol Succinate ER 100 mg oral tablet, extended release Start: 05/12/23 1:31:00 PM EDT, See Instructions, Disp# 90 tab, Refills: 3, TAKE 1 TABLET BY MOUTH ONCE DAILY, Pharmacy: [id number] Start Date: 05/12/23 Status: [...] qid, Disp# 200 mL, Refills: 0, Pharmacy: [id number] Start Date: 10/10/23 Stop Date: 10/20/23 Status: Ordered omeprazole 40 mg oral delayed release capsule Start: 05/10/23 1:21:00 PM EDT, 1 cap, PO, Daily, Disp# 90 cap, Refills: 3, Pharmacy: [id number] Start Date: 05/10/23 Stop Date: 05/04/24 Status: Ordered Prednisol 1% ophthalmic solution Start: 12/04/19 2:04:00 PM EDT, both eyes, both eyes qAM, left eye qPM. Start Date: 12/04/19 Status: Ordered spironolactone 25 mg oral tablet Start: 03/28/23 9:56:00 AM EST, 1 tab, PO, Daily, Disp# 90 tab, Refills: 3, Pharmacy: [id number] Start Date: 03/28/23 Status: [...] qPM, Disp# 90 tab, Refills: 3, Pharmacy: [id number] Start Date: 10/18/23 Status: Ordered Zofran 4 mg oral tablet Start: 05/10/23 1:21:00 PM EDT, 1 tab, PO, Daily, Disp# 90 tab, Refills: 3, PRN: as needed for nausea/vomiting, Pharmacy: [id number] Start Date: 05/10/23 Stop Date: 05/04/24 Status: Ordered ZyrTEC 10 mg oral tablet Start: 08/16/16 11:19:00 AM EDT, 1 tab, PO, Daily Start Date: 08/16/16 Status: Ordered Mental Status 11/08/23 Barriers to Learning one year Acuity of illness, Vision impairment, Other: wears eye glasses, and uses a walking cane Mandatory Health Literacy Documentation Yes Health Literacy Communication Barriers N ever Primary Language Tunisian Problem List Condition Confirmation Course Effective Dates [...] weight and uncontrolled DM 2sees pulmonary - [facility] 3PFT 04/04/17 4Has had reclast from 2014 to 2019 5Was on Boniva - [id number] - Improved bone density and stopped med. After bowel surgery - BMD dropped - Started on reclast [id number]. 6Dr Arabella - [facility] 7last biopsy - 2016 - normal Diagnosis Diagnosis Type Effective Dates Health Status Clinical Service Informant Macrocytic anemia Discharge Diagnosis 11/08/23 Non-Specified Transaminitis Discharge Diagnosis 11/08/23 Non-Specified History of gastric bypass Discharge Diagnosis 11/08/23 Non-Specified Atrial fibrillation Discharge Diagnosis 11/08/23 Non-Specified Lower extremity edema Discharge Diagnosis 11/08/23 Non-Specified Procedures Procedure Date Related Diagnosis Body Site [...] outside mammograms dated 02/14/2018, 08/12/2017, 12/07/2016 from [facility] have become available comparison. Compared to prior [...] study 32x2 and a surgery for infection Vital Signs Most recent to oldest [Reference Range]: 1 Patient Weight 77.7 kg (11/08/23 10:56 AM) Heart Rate 94 bpm (11/08/23 10:56 AM) Blood Pressure 120/70mmHg (11/08/23 10:56 AM) Cuff Pulse Pressure 50 mmHg (11/08/23 10:56 AM) Social History Social History Type Response Smoking Status Never smoked cigaret calli Sex Female Sex Representation Female (finding) FCM Outpt Note * MD Pearson Christopher: MODIFY MD Pearson Christopher: MODIFY Event Display: FCM Outpt Note Authored Date: Chief Complaint 3 week f/u - leg weakness History of Present Illness Pt is a 68 yo female with complex medical hx including scleroderma presenting for a lab review. BMP showed hypokalemia 3.4, normal Cr. CBC showed stable Hgb10.8 and increased MCV 112. B12 and folate are adequate. Lipid panel stable and well controlled. Pt notes she is having extreme swelling over the past few weeks since stopping her HCTZ/spironolactone. She has restarted her HCTZ and spironolactone over the last two days. She notes worsening SOB with activity, none at rest. She also notes worsening urinary symptoms- more trouble peeing. Review of Systems As per HPI Physical Exam Vitals & Measurements HR:94(Monitored) BP:120/70 SpO2:88% WT:77.700kg(Dosing) WT:77.7kg General:well appearing, alert and oriented,no acute distress Cardiovascular: RRR, no murmur noted. 2+ bilateral pittingLE edema. Respiratory:CTA bilaterally with minimally diminished breath sounds in the left lung base. Psych: Mood and affect congruent. Speech of normal pace and content. Assessment/Plan 1.Macrocytic anemia - chronic, not at goal - goal: diagnostic clarity - unclear etiology; folate, B12/MMA WNL - repeat CBC ordered, in addition to iron panel - referredto hematology for further work up 2.History of gastric bypass - chronic, not at goal - goal: monitoring - bariatric surgery post op labs ordered including CBC, CMP, copper, ferritin, iron panel, magnesium, etc 3.Transaminitis - undifferentiated new problem with uncertain prognosis - goal: diagnostic clarity - unclear etiology; liver etiology vs. hepatic congestion secondary to fluid overload - hep C screening negative; hep A and hep B ordered to complete work up - pt does have a hx of fatty liver on US (04/2023); consider referral to GI if primary liver source 4.Lower extremity edema - acute, complicated - goal: resolution, diagnostic clarity - pt had previously been off HCTZ/spironolactone d/t concerns for hypotension - will switch HCTZ for furosemide 20mg daily, continue spironolactone - concern for fluid overload secondary to pulmonary HTN; pt scheduled to have yearly echo in Nov- will forward today's note to pt's regional education coordinator for consideration of sooner echo and f/u - f/u in office in 1 week 5.Atrial fibrillation - chronic, not at goal - goal: monitoring - per pt, has not had any episodes since ablation (~1.5 yrs ago) - unclear if afib contributing to current hypervolemic state; rate controlled in office - f/u in 1 week Attestation Pt seen and examined in concert with Dr. Dunbar, agree with history and physical as documented above. Plan reviewed in detail. Any corrections or additions are noted here - multiple lab abnormalities in a complex patient with multiple comorbidities for further evaluation as noted above. Additionally, worsening LE edema in the setting of afib with previous d/c of diuretic therapy. Agree w/ continued spironolactone and start furosemide with precautions for worsening/changing symptoms and instructions for follow up. Problem List/Past Medical History Ongoing Allergic rhinitis Asthma Atrial fibrillation Chronic diarrhea DYSPHAGIA Gastroparesis GERD with stricture Hx of gastric bypass Hyperlipidemia Hypertension Hypoproteinemia Iron deficiency Leiomyoma of uterus LFTs abnormal Long-term current use of anticoagulant Macrocytic anemia Mixed restrictive and obstructive lung disease Open wound of abdominal wall Osteoporosis Pulmonary interstitial fibrosis Raynaud's disease S/P ablation of atrial fibrillation Sacral radiculopathy Scleroderma Small intestinal bacterial overgrowth (SIBO) Spinal stenosis Thyroid nodule Vitamin D deficiency Resolved Abdominal mass Bowel obstruction Hernia Hyperactive bowel sounds Infected prosthetic mesh of abdominal wall Respiratory distress, acute Sinusitis Sleep apnea Procedure/Surgical History Mammogram| Service Date: 4Colonoscopy| Service Date: 4Repair of wound ofabdominal wall| Service Date: 3Chest X-ray| Service Date: 05/28/2022hest X-ray| Service Date: 05/21/2022T angiography of chest with contrast| Service Date: 05/21/2022Upper GI (g astrointestinal) endoscopy| Service Date: 05/05/2021Gastric emptying study| Service Date: 02/25/2021bomen; right lower quadrant| Service Date: 12/30/2020ardiac ablation using fluoroscopy guidance| Service Date: 11/26/2020Thyroid Ultrasound| Service Date: 08/11/2020Mammography| Service Date: 07/31/2020ardioversion| Service Date: 02/28/2020DEXA - dual energy X-ray absorptiometry| Service Date: 01/19/2019Ultrasound of the pelvis| Service Date: 11/20/2018Thyroid ultrasound| Service Date: 10/25/2018Mammogram - screening| Service Date: 02/14/2018Ultrasound scan of neck and head soft tissue| Service Date: 02/06/2018X-ray of finger right second digit| Service Date: 12/13/2017Mammogram diagnostic right| Service Date: 08/12/2017Chest CT| Service Date: 08/01/2017Ultrasound scan of thyroid| Service Date: 01/18/2017Bone density scan| Service Date: Chest x-ray| Service Date: 01/06/2017Mammogram diag right| Service Date: 12/15/2016Mammogram - screening| Service Date: 12/07/2016Mammogram - screening Bilateral| Service Date: 12/07/2016Repair of abdominal wall/recurrent incisional hernia site| Service Date: 09/08/2016Upper GI endoscopy| Service Date: 12/29/2015Laparoscopic repair of incisional hernia| Service Date: 10/31/2015bowel resection| Service Date: 10/2015PFT| Service Date: 03/10/2015Colonoscopy| Service Date: 08/2014Cholecystectomy| Service Date: 02/2012right knee replacement| Service Date: owel obstruction| Service Date: spiration of peritoneal drain| Service Date: 2009Placement of gastrostomy tube| Service Date: owel obstruction| Service Date: owel obstruction| Service Date: 2007Gastric bypass operation| Service Date: 2006Dilation and curettage| Service Date: 1991 Medications acetaminophen-traMADol(acetaminophen-traMADol 325 mg-37.5 mg oral tablet), 1 tab, PO, q4h, PRN albuterol(albuterol 1.25 mg/3 mL (0.042%) inhalation solution), 1.25 mg= 3 mL, NEB, qid, 1 refills albuterol(albuterol CFC free 90 mcg/inh MDI), 2 puff, inhaled, qid, PRN [id number](Beano), 450 unit, PO, tid, PRN calcium carbonate(Tums 500 (1250 mg calcium carbonate) oral tablet, chewable), 500 mg= 1 tab, PO, Daily, PRN cephalexin(cephalexin 500 mg oral capsule) cetirizine(ZyrTEC 10 mg oral tablet), 10 mg= 1 tab, PO, Daily cholecalciferol(Vitamin D3), 5000 Int_Unit, PO, Daily cyanocobalamin(cyanocobalamin 500 mcg oral tablet), 500 mcg= 1 tab, PO, Daily fluticasone-salmeterol(Advair HFA 115 mcg-21 mcg), 2 puff, inhaled, bid, 11 refills furosemide(Lasix 20 mg oral tablet), 20 mg= 1 tab, PO, Daily, 2 refills guaiFENesin(Mucinex) inhalation accessory(inhaler spacer), See Instructions lactase, PO, ac, PRN magnesium oxide metoprolol(Metoprolol Succinate ER 100 mg oral tablet, extended release), See Instructions, 3 refills multivitamin with minerals(Centrum Silver oral tablet), 1 tab, PO, Daily mycophenolate mofetil(mycophenolate mofetil 500 mg oral tablet), 1000 mg= 2 tab, PO, Daily nystatin(nystatin 100,000 units/mL oral suspension), [id number] unit= 5 mL, PO, qid omega-3 polyunsaturated fatty acids(White Cheetah's Bounty Red Krill Oil 500 mg oral capsule) omeprazole(omeprazole 40 mg oral delayed release capsule), 1 cap, PO, Daily, 3 refills ondansetron(Zofran 4 mg oral tablet), 4 mg= 1 tab, PO, Daily, PRN, 3 refills pancrelipase(Creon 6000 units oral delayed release capsule), See Instructions, 3 refills prednisoLONE ophthalmic(Prednisol 1% ophthalmic solution), both eyes rivaroxaban(Xarelto 20 mg oral tablet), 20 mg= 1 tab, PO, qPM, 3 refills spironolactone(spironolactone 25 mg oral tablet), 1 tab, PO, Daily triamcinolone nasal(Nasacort Allergy 24HR), 2 spray, intranasal, Daily, PRN unlisted medication(Eye Vitamin), 1 tab, PO, Daily Allergies metoclopramide(Severe)elevated LFTs BextraSwelling CelebrexConfusion, GI Upset Lyricaanxiety Percocet 7.5/325GI Pain Zocorpassed out, lightheaded gold sodium thiomalateunknown ibuprofenGI Pain medtronidazole containing compoundsstomach upset naproxenGI Pain Social History Smoking Status Never smoked cigarettes Alcohol - No Risk 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 Grew up in [place], Moving from [place], [place]. 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 Tobacco - No Risk Family History Blood clots in membranes: Paternal Uncle. DVT (deep venous thrombosis)..: Negative: Paternal Uncle. Diabetes mellitus: Mother, Father, Brother and MGM. Heart disease: Mother, Father, Brother, Maternal Uncle, PGF, PGM and Paternal Uncle. Hemophilia: Negative: Paternal Uncle. Hypertension: Mother, Father, Brother, Maternal Aunt, Maternal Uncle, PGF, PGM and Paternal Uncle. Uterine cancer..: Sister. Health Status Family Member(s) Family Member(s) Relationship: Mother, Age: Unknown Relationship: Father, Age: Unknown Immunizations Vaccine Date Status SARS COVID Vaccine Unspecified 12/08/2022 Recorded RSV vaccine preF3, recombinant 10/20/2022 Recorded influenza virus vaccine, inactivated 12/02/2021 Recorded SARS-CoV-2 mRNA (tozinameran 5y-11y) 12/02/2021 Recorded SARS-CoV-2 (COVID-19) mRNA BNT-162b2 vax 07/01/2021 Recorded pneumococcal 23-valent vaccine 12/31/2020 Recorded Comments : [facility] influenza virus vaccine, inactivated 11/13/2020 Recorded SARS-CoV-2 (COVID-19) mRNA BNT-162b2 vax 11/13/2020 Recorded Comments : 2020-11-14: Historical information-source unspecified zoster vaccine, inactivated 08/07/2020 Given Comments : Suspension [id number] 05/16/21 SARS-CoV-2 (COVID-19) mRNA BNT-162b2 vax 04/29/2020 Recorded Comments : 2020-11-14: Historical information-source unspecified SARS-CoV-2 (COVID-19) mRNA BNT-162b2 vax 04/08/2020 Recorded Comments : 2020-11-14: Historical information-source unspecified tetanus toxoids-diphtheria, Td (Adult) 01/31/2020 Given influenza virus vaccine, inactivated 12/03/2019 Recorded pneumococcal 13-valent vaccine 12/03/2019 Recorded influenza virus vaccine, inactivated 12/03/2019 Recorded influenza virus vaccine, inactivated 11/16/2018 Given pneumococcal 23-valent vaccine 09/15/2016 Given tetanus/diphtheria/pertuss, acel (Tdap) 10/29/2005 Recorded Comments : 2020-01-31: Historical information-source unspecified pneumococcal 23-valent vaccine 01/21/2003 Recorded Comments : 2020-01-31: Historical information-source unspecified Recommendations Health Maintenance Pending(in the next year) OverDue Adult Influenza Vaccine due08/28/23and every 1year Due Adult Social Determinants of Health Screening due11/08/23Unknown Frequency Falls Plan of Care due11/08/23Unknown Frequency Shingles Vaccine due11/08/23One-time only Due In Future Medicare Annual Wellness Visit not due until10/05/24and every 1year Satisfied(in the past 1 year) Satisfied Body Mass Index on10/06/23.Satisfied by JENA Erwin [place] Breast Cancer Screening on08/11/23.Satisfied by MD Clemente Madhavi Lipid Screening on11/01/23.Satisfied by [email or web address] Medicare Annual Wellness Visit on10/06/23.Satisfied by MD Clemente Madhavi Electronic Signature on File CC: Kip Bustamante DO [address] [facility] [address] [facility] [address] Electronically Reviewed/Signed by: Isela Dunbar DO Author Signature Dt/Tm:11/08/2023 11:59 AM Resident Department of Family Medicine Electronically Reviewed/Signed by: Ricardo Pearson MD Cosigner Signature Dt/Tm: 11/10/2023 10:17AM Department of Family Medicine SES Patient Care team information Care Team Personnel Name: NEELIMA Solis Kimberly A Position: Physician Asst Exmpt - Family Med Member Role: Lifetime Relationship Address: [address] [facility] [address] [facility] [address] [place] [address] [place] Name: GONZALO Lee Melvin J Position: Nurse Pract - Card Electrophys Member Role: Lifetime Relationship Address: [address] [facility] [address] [place] [address] [place] Name: GONZALO Malone Stacey L Position: Nurse Pract - Cardiology Member Role: Lifetime Relationship Address: [address] [place] [address] [place] Name: Romina Sanchez Alisha Position: Pharmacist Member Role: Pharmacy - Lifetime Name: GONZALO Briscoe Michelle C Position: Nurse Pract - Card Electrophys Member Role: Lifetime Relationship Address: [address] [place] [address] [place] Name: MD Clemente Madhavi Position: Physician - Family Med Member Role: Primary Care Provider Address: [address] [address] [place] Name: Romina Frankel Brittani Position: Pharmacist Member Role: Pharmacy - Lifetime Name: GONZALO Vickers Bonnie D Position: Nurse Pract - Surgery MIS Member Role: Lifetime Relationship Address: [address] [place] [address] [id number] Care Team Related Persons Name: TR LAMBERT Name: ALEXANDER AGUSTIN"
--- OUTSIDE RECORDS SUMMARY | 2023-11-14 15:40 | External Medical Summary | Continuity of Care Document ---
Author Name Unknown Organization [facility] 1850 [facility] [address] [place] [phone] Care Team Providers Care Customer Success Director Name Role Phone Marcia Clemente Primary Care Physician [phone] [id number] Date(s): 10/20/23 - 10/20/23 [facility] [address] [facility] 207 [facility] [address] [address] [place] [phone] Encounter Diagnosis Anemia(Discharge Diagnosis) - 10/20/23 Elevated LFTs(Discharge Diagnosis) - 10/20/23 Screening for hyperlipidemia(Discharge Diagnosis) - 10/20/23 Discharge Disposition: Home or Self Care Attending Physician: MD Pearson Christopher Allergies, Adverse Reactions, Alerts Substance Criticality Severity Reaction Reaction Severity Status ibuprofen GI Pain Active Lyrica anxiety Active naproxen GI Pain Active gold sodium thiomalate unknown Active Bextra Swelling Active metoclopramide Unable to assess criticality Severe elevated LFTs Active medtronidazole containing compounds stomach upset Active Zocor passed out lightheaded Active Celebrex Confusion GI Upset Active Percocet 7.5/325 GI Pain Act evangelina Assessment and Plan Extracted from: Title:Lab review Author:DO Dunbar Sophia E lizabeth Date:10/20/23 1.Anemia - chronic, not at goal - goal: diagnostic clarity, increase Hgb/energy - unclear etiology; does not appear to be losing blood from anywhere; colonoscopyMay 2023 negative - MCV elevated and w/ pt's complex gastric hx suspect secondary to malabsorption; B12 previously checked and WNL - will check folate and MMA to ensure proper absorption - will recheck CBC to ensure stability of Hgb - B12 injection given in office - f/u in 2-3 weeks 2.Elevated LFTs - acute, complicated - goal: diagnostic clarity - unclear etiology; possibly secondary to medication - recheck CMP in 2 weeks; if remain elevated, may consider further studies including hepatitis panel - f/u in 2-3 weeks 3.Screening for hyperlipidemia - chronic, at goal - goal: monitor lipid levels - last lipid panel in 2021 which showed stable lipid levels - lipid panel ordered Immunizations Given and Recorded Vaccine Date Status [...] Comment: 2020-11-14: Historical information-source unspecified 4Result Comment: [facility] 5Result Comment: 2020-01-31: Historical information-source [...] 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, Brand Medically Necessary, Pharmacy: [id number] Start Date: 04/06/23 Stop Date: 03/31/24 Status: Ordered albuterol 1.25 mg/3 mL (0.042%) inhalation solution Start: 09/22/23 2:48:00 PM EDT, 3 mL, NEB, qid, Disp# 25 each, Refills: 1, Pharmacy: [facility] Start Date: 09/22/23 Status: [...] 1 CAPSULE BY MOUTHTHREE TIMES DAILY, Pharmacy: [facility] Start Date: 05/10/23 Status: [...] Daily, Disp# 90 tab, Refills: 3, Pharmacy: [facility] Start Date: 10/22/22 Status: Ordered inhaler spacer Start: 12/14/21 3:53:00 PM EDT, See Instructions, Disp# 1 each, Use spacer whenever using inhaler, Pharmacy: [facility] Start Date: 12/14/21 Status: [...] 1 TABLET BY MOUTH ONCE DAILY, Pharmacy: [facility] Start Date: 05/12/23 Status: [...] qid, Disp# 200 mL, Refills: 0, Pharmacy: [facility] Start Date: 10/10/23 Stop Date: 10/20/23 Status: Ordered omeprazole 40 mg oral delayed release capsule Start: 05/10/23 1:21:00 PM EDT, 1 cap, PO, Daily, Disp# 90 cap, Refills: 3, Pharmacy: [facility] Start Date: 05/10/23 Stop Date: 05/04/24 Status: Ordered Prednisol 1% ophthalmic solution Start: 12/04/19 2:04:00 PM EDT, both eyes, both eyes qAM, left eye qPM. Start Date: 12/04/19 Status: Ordered spironolactone 25 mg oral tablet Start: 03/28/23 9:56:00 AM EST, 1 tab, PO, Daily, Disp# 90 tab, Refills: 3, Pharmacy: [facility] Start Date: 03/28/23 Status: [...] qPM, Disp# 90 tab, Refills: 3, Pharmacy: [facility] Start Date: 10/18/23 Status: Ordered Zofran 4 mg oral tablet Start: 05/10/23 1:21:00 PM EDT, 1 tab, PO, Daily, Disp# 90 tab, Refills: 3, PRN: as needed for nausea/vomiting, Pharmacy: [facility] Start Date: 05/10/23 Stop Date: 05/04/24 Status: Ordered ZyrTEC 10 mg oral tablet Start: 08/16/16 11:19:00 AM EDT, 1 tab, PO, Daily Start Date: 08/16/16 Status: Ordered Mental Status 10/20/23 Barriers to Learning one year Acuity of illness, Vision impairment, Other: wears eye glasses, and uses a walking cane Mandatory Health Literacy Documentation Yes Health Literacy Communication Barriers N ever Primary Language Latvian Problem List Condition Confirmation Course Effective Dates [...] 1for weight and uncontrolled DM 2sees pulmonary [facility] 3PFT 04/04/17 4Has had reclast from 2014 to 2019 5Was on Boniva - [id number] - Improved bone density and stopped med. After bowel surgery - BMD dropped - Started on reclast [phone]. 6Dr [facility] 7last biopsy - 2016 - normal Diagnosis Diagnosis Type Effective Dates Health Status Clinical Service Informant Anemia Discharge Diagnosis 10/20/23 Non-Specified Elevated LFTs Discharge Diagnosis 10/20/23 Non-Specified Screening for hyperlipidemia Discharge Diagnosis 10/20/23 Non-Specified Procedures Procedure Date Related Diagnosis Body [...] gastrostomy tube 2009 Completed Bowel obstruction 32 2009 Comp leted Bowel obstruction 2007 Complet ed [...] outside mammograms dated 02/14/2018, 08/12/2017, 12/07/2016 from [facility] have become available comparison. Compared to [...] Most recent to oldest [Reference Range]: 1 Temperature [36.5-37.9 DegC] 37.0 DegC (10/20/23 7:57 AM) Heart Rate 106 bpm (10/20/23 7:57 AM) Respiratory Rate 18 br/min (10/20/23 7:57 AM) Blood Pressure 106/62mmHg (10/20/23 7:57 AM) Cuff Pulse Pressure 44 mmHg (10/20/23 7:57 AM) Social History Social History Type Response Smoking Status Never smoked cigaret calli Sex Female Sex Representation Female (finding) FCM Outpt Note * MD Luevano Joseph P: MODIFY MD Luevano Joseph P: MODIFY Event Display: FCM Outpt Note Authored Date: [id number] Chief Complaint F/U, had blood work done yesterday, pt states she is doing a little better, and has a little more energy History of Present Illness Pt is a 68 yo female with PMH of asthma, afib, scleroderma, iron deficiency, and interstitial lung disease presenting for a lab f/u. Pt had lab work done yesterday. She notes she is currently being treated for an infected sacral/buttock wound. This is being followed by wound care. She denies any bleeding. Her last colonoscopy was in June 2023 which was normal. She has been eating a lot of protein shakes and meats (chicken) to try to increase her protein levels. She is supplementing iron(slow release) daily. She also supplements B12 orally. She does have a hx of gastric bypass (2006). She was diagnosed with scleroderma 15-16 yrs ago. Review of Systems As per HPI Physical Exam Vitals & Measurements T:37.0C HR:106(Monitored) RR:18 BP:106/62 SpO2:96% PHQ2 Data(Data Documented on:10/20/2023 07:55) Emotional health assessment NEGATIVE General:well appearing, alert and oriented,no acute distress Cardiovascular: clinically well perfused Respiratory: respirations are non-labored Psych: Mood and affect congruent. Speech of normal pace and content. Assessment/Plan 1.Anemia - chronic, not at goal - goal: diagnostic clarity, increase Hgb/energy - unclear etiology; does not appear to be losing blood from anywhere; colonoscopyMay 2023 negative - MCV elevated and w/ pt's complex gastric hx suspect secondary to malabsorption; B12 previously checked and WNL - will check folate and MMA to ensure proper absorption - will recheck CBC to ensure stability of Hgb - B12 injection given in office - f/u in 2-3 weeks 2.Elevated LFTs - acute, complicated - goal: diagnostic clarity - unclear etiology; possibly secondary to medication - recheck CMP in 2 weeks; if remain elevated, may consider further studies including hepatitis panel - f/u in 2-3 weeks 3.Screening for hyperlipidemia - chronic, at goal - goal: monitor lipid levels - last lipid panel in 2021 which showed stable lipid levels - lipid panel ordered Attestation I saw patient and was present for the rizzo portions of the history and physical. I agree with theresident's note and plan as documented in the resident's note. I am concerned about drop in Hgb, will recheck, MMA and folic and may need CT abdomen to evaluate for possible source of blood loss.No bleeding noted by patient. Kana Luevano Problem List/Past Medical History Ongoing Allergic rhinitis [...] mcg/inh MDI), 2 puff, inhaled, qid, PRN rljyr-U-ayblhqczmqctj(Beano), 450 unit, PO, tid, PRN calcium carbonate(Tums [...] mcg), 2 puff, inhaled, bid, 11 refills guaiFENesin(Mucinex) hydroCHLOROthiazide(hydroCHLOROthiazide 25 mg oral tablet), 12.5 mg= 0.5 tab, PO, Daily, 3 refills inhalation accessory(inhaler spacer), See Instructions lactase, PO, ac, PRN magnesium oxide metoprolol(Metoprolol Succinate ER 100 mg oral tablet, extended release), See Instructions, 3 refills multivitamin with minerals(Centrum Silver oral tablet), 1 tab, PO, Daily mycophenolate mofetil(mycophenolate mofetil 500 mg oral tablet), 1000 mg= 2 tab, PO, Daily nystatin(nystatin 100,000 units/mL oral suspension), [id number] unit= 5 mL, PO, qid omega-3 polyunsaturated fatty acids(Nature's Bounty Red Krill Oil 500 mg oral [...] No Risk 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 Grew up in [place], Moving from [place], [place]. 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 Tobacco - No Risk Family History Blood [...] virus vaccine, inactivated 12/02/2021 Recorded SARS-CoV-2 mRNA (toyesieran 5y-11y) 12/02/2021 Recorded SARS-CoV-2 (COVID-19) mRNA BNT-162b2 vax 07/01/2021 Recorded pneumococcal 23-valent vaccine 12/31/2020 Recorded Comments : [facility] influenza virus vaccine, inactivated 11/13/2020 [...] Due Adult Social Determinants of Health Screening due10/20/23Unknown Frequency Falls Plan of Care due10/20/23Unknown Frequency Shingles Vaccine due10/20/23One-time only Due In Future Medicare Annual Wellness Visit not due until10/05/24and every 1year Body Mass Index not due until10/06/24and every 366 Satisfied(in the past 1 year) Satisfied Body Mass Index on10/06/23.Satisfied by JENA Erwin [place] Breast Cancer Screening on08/11/23.Satisfied by MD Clemente Madhavi Medicare Annual Wellness Visit on10/06/23.Satisfied by MD Clemente Madhavi Electronic Signature on File Electronically Reviewed/Signed by: Isela Dunbar DO Author Signature Dt/Tm:10/20/2023 08:42 AM Resident Department of Family Medicine Electronically Reviewed/Signed by: Tripp Luevano MD Cosigner Signature Dt/Tm: 10/20/2023 01:58PM Department of Family Medicine SES Patient Care team information Care Team Personnel Name: NEELIMA Solis, Shelia Garcia Position: Physician Asst Exmpt - Family Med Member Role: Lifetime Relationship Address: [address] [place] [address] [place] Name: GONZALO Lee Melvin J Position: Nurse Pract - Card Electrophys Member Role: Lifetime Relationship Address: [address] [place] [address] [place] Name: GONZALO Malone Stacey L Position: Nurse Pract - Cardiology Member Role: Lifetime Relationship Address: [address] [place] [address] [place] Name: Romina Sanchez Alisha Position: Pharmacist Member Role: Pharmacy - Lifetime Name: GONZALO Briscoe Michelle C Position: Nurse Pract - Card Electrophys Member Role: Lifetime Relationship Address: [address] [place] [place] [address] [place] Name: MD Clemente Madhavi Position: Physician - Family Med Member Role: Primary Care Provider Address: [address] [place] [address] [place] Name: Romina Frankel Brittani Position: Pharmacist Member Role: Pharmacy - Lifetime Name: GONZALO Vickers Bonnie D Position: Nurse Pract - Surgery MIS Member Role: Lifetime Relationship Address: [address] [place] [address] [place] Care Team Related Persons Name: TR LAMBERT Name: ALEXANDER AGUSTIN"
--- OUTSIDE RECORDS SUMMARY | 2023-11-14 15:40 | External Medical Summary | Continuity of Care Document ---
Author Name Unknown Organization [facility] [address] Address [address] [place], [place] [id number] Care Team Providers Care Real Estate [employer] Principal Name Role Phone Marcia Clemente Primary Care Physician [phone] [id number]): 11/10/23 - 11/10/23 [facility] [address] [facility] [address] [facility] [place], [place] [phone] Encounter Diagnosis Bariatric surgery status(Final) - Nutritional anemia, unspecified(Final) - Elevation of levels of liver transaminase levels(Final) - Discharge Disposition: Home or Self Care [...] Upset Active Percocet 7.5/325 GI Pain Act yoel Immunizations Given and Recorded Vaccine Date Status [...] Comment: 2020-11-14: Historical information-source unspecified 4Result Comment: [facility] 5Result Comment: 2020-01-31: Historical information-source [...] 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, Brand Medically Necessary, Pharmacy: [facility] Start Date: 04/06/23 Stop Date: 03/31/24 Status: Ordered albuterol 1.25 mg/3 mL (0.042%) inhalation solution Start: 09/22/23 2:48:00 PM EDT, 3 mL, NEB, qid, Disp# 25 each, Refills: 1, Pharmacy: [facility] Start Date: 09/22/23 Status: [...] 1 CAPSULE BY MOUTHTHREE TIMES DAILY, Pharmacy: [facility] Start Date: 05/10/23 Status: [...] each, Use spacer whenever using inhaler, Pharmacy: [facility] Start Date: 12/14/21 Status: Ordered lactase Start: 10/15/15 10:34:00 AM EDT, PO, ac, with meals, PRN: As needed Start Date: 10/15/15 Status: Ordered Lasix 20 mg oral tablet Start: 11/08/23 11:16:00 AM EDT, 1 tab, PO, Daily, Disp# 30 tab, Refills: 2, Pharmacy: [facility] Start Date: 11/08/23 Status: Ordered magnesium oxide Start: 08/12/22 12:50:00 PM EDT, daily Start Date: 08/12/22 Status: Ordered Metoprolol Succinate ER 100 mg oral tablet, extended release Start: 05/12/23 1:31:00 PM EDT, See Instructions, Disp# 90 tab, Refills: 3, TAKE 1 TABLET BY MOUTH ONCE DAILY, Pharmacy: [facility] Start Date: 05/12/23 Status: [...] qid, Disp# 200 mL, Refills: 0, Pharmacy: [facility] Start Date: 10/10/23 Stop Date: 10/20/23 Status: Ordered omeprazole 40 mg oral delayed release capsule Start: 05/10/23 1:21:00 PM EDT, 1 cap, PO, Daily, Disp# 90 cap, Refills: 3, Pharmacy: [facility] Start Date: 05/10/23 Stop Date: 05/04/24 Status: Ordered Prednisol 1% ophthalmic solution Start: 12/04/19 2:04:00 PM EDT, both eyes, both eyes qAM, left eye qPM. Start Date: 12/04/19 Status: Ordered spironolactone 25 mg oral tablet Start: 03/28/23 9:56:00 AM EST, 1 tab, PO, Daily, Disp# 90 tab, Refills: 3, Pharmacy: [facility] Start Date: 03/28/23 Status: [...] qPM, Disp# 90 tab, Refills: 3, Pharmacy: [facility] Start Date: 10/18/23 Status: Ordered Zofran 4 mg oral tablet Start: 05/10/23 1:21:00 PM EDT, 1 tab, PO, Daily, Disp# 90 tab, Refills: 3, PRN: as needed for nausea/vomiting, Pharmacy: [facility] Start Date: 05/10/23 Stop [...] 1for weight and uncontrolled DM 2sees pulmonary [facility] 3PFT 04/04/17 4Has had reclast from 2014 to 2019 5Was on Boniva - [id number] - Improved bone density and stopped med. After bowel surgery - BMD dropped - Started on reclast [id number]. 6Dr Arabella - [facility] [place] 7last biopsy - 2016 - normal Procedures [...] of peritoneal drain 2009 Completed Bowel obstruction 2010 Complet ed Placement of gastrostomy tube 2009 [...] 02/14/2018, 08/12/2017, 12/07/2016 from [facility] have become available comparison. Compared to prior [...] Laboratory List Name Date Complete Blood Count (CBC) 11/10/23 Comprehensive Metabolic Panel (COMP META B PANEL) 11/10/23 Copper Level (COPPER) 11/10/23 Ferritin (FERRITIN) 11/10/23 Hepatitis A Antibody, IgM (HEPATITIS A A B IGM) 11/10/23 Hepatitis B Core Antibody, IgG and IgM ( HEP B CORE AB G+M) 11/10/23 Hepatitis B Surface Antibody (HEP B SURF AB) 11/10/23 Hepatitis B Surface Antigen (HEP B SURF AG) 11/10/23 Iron Profile (IRON PROFILE) 11/10/23 Magnesium Level (MAGNESIUM) 11/10/23 Parathyroid Hormone, Intact (PTH, INTACT ) 11/10/23 Vitamin D, 25-Hydroxy Level, Total (25-H YDROXY VITAMIN D) 11/10/23 Zinc Level (ZINC) 11/10/23 Most recent to oldest [Reference Range]: 1 eGFR CKD-EPI [>60 mL/min/1.73 m2] >90 mL /min/1.73 m2 1 (11/10/23 1:58 PM) Vitamin D, 25-Hydroxy [30-100 ng/mL] 21 ng/mL 2 *LOW* (11/10/23 1:58 PM) Hep A Ab, IgM NEGATIVE 3 *Unknown* (11/10/23 1:58 PM) HBsAb Concentration [NR mIU/mL] NONREACT YOEL mIU/mL (11/10/23 1:58 PM) Estimated CrCl 197.86 mL/min (11/10/23 2:40 PM) MPV [9.0-12.2 fL] 11.3 fL (11/10/23 1:58 PM) RDW [11.5-14.2 %] 13.3 % (11/10/23 1:58 PM) Anion Gap [5-14 mmol/L] 4 mmol/L *LOW* (11/10/23 1:58 PM) Alb [3.5-5.0 g/dL] 2.5 g/dL *LOW* (11/10/23 1:58 PM) Alk Phos [38-126 unit/L] 128 unit/L *HI* (11/10/23 1:58 PM) ALT [<35 unit/L] 62 unit/L *HI* (11/10/23 1:58 PM) AST [15-46 unit/L] 70 unit/L *HI* (11/10/23 1:58 PM) BUN [7-20 mg/dL] 15 mg/dL (11/10/23 1:58 PM) Ca [8.4-10.2 mg/dL] 7.5 mg/dL *LOW* (11/10/23 1:58 PM) Cl- [96-107 mmol/L] 93 mmol/L *LOW* (11/10/23 1:58 PM) HCO3 [22-30 mmol/L] 33 mmol/L *HI* (11/10/23 1:58 PM) HBcAb [NR] NONREACTIVE *Unknown* (11/10/23 1:58 PM) Cret [0.60-1.00 mg/dL] 0.28 mg/dL *LOW* (11/10/23 1:58 PM) Copper Level 50.8 4 *LOW* (11/10/23 1:58 PM) Iron [37-145 ug/dL] 62 ug/dL (11/10/23 1:58 PM) Ferritin [11.1-264.0 ng/mL] 22.5 ng/mL 5 (11/10/23 1:58 PM) Glu [74-106 mg/dL] 83 mg/dL (11/10/23 1:58 PM) HBsAg [NR] NONREACTIVE *Unknown* (11/10/23 1:58 PM) HBsAb [NR] NONREACTIVE *Unknown* (11/10/23 1:58 PM) Hct [35-44 %] 33.8 % *LOW* (11/10/23 1:58 PM) Hgb [11.7-15.0 g/dL] 10.9 g/dL *LOW* (11/10/23 1:58 PM) PTH Intact [15.0-65.0 pg/mL] 73.5 pg/mL *HI* (11/10/23 1:58 PM) K [3.5-5.1 mmol/L] 3.6 mmol/L (11/10/23 1:58 PM) MCH [28-33 pg] 34.6 pg *HI* (11/10/23 1:58 PM) MCHC [32-36 g/dL] 32.2 g/dL (11/10/23 1:58 PM) MCV [81-96 fL] 107.3 fL *HI* (11/10/23 1:58 PM) Mg [1.6-2.3 mg/dL] 1.6 mg/dL 6 (11/10/23 1:58 PM) Na [137-145 mmol/L] 130 mmol/L *LOW* (11/10/23 1:58 PM) Plts [150-350 K/uL] 262 K/uL (11/10/23 1:58 PM) RBC [3.90-5.00 M/uL] 3.15 M/uL *LOW* (11/10/23 1:58 PM) Fe Sat [14-50 %] 29 % (11/10/23 1:58 PM) T Bili [0.2-1.3 mg/dL] 0.9 mg/dL (11/10/23 1:58 PM) Total IBC [250-400 ug/dL] 217 ug/dL *LOW* (11/10/23 1:58 PM) Prot [6.3-8.2 g/dL] 5.3 g/dL *LOW* (11/10/23 1:58 PM) Transferrin [200-360 mg/dL] 184 mg/dL *LOW* (11/10/23 1:58 PM) WBC [4.0-10.4 K/uL] 9.92 K/uL (11/10/23 1:58 PM) Zinc 41.8 7 *LOW* (11/10/23 1:58 PM) 1Result Comment: Testing Performed By: Dept of Pathology [facility] [address], [address], [place] [address] 2Result Comment: Deficiency: <20 ng/mL Insufficiency: 21-29 ng/mL Sufficiency: 30-100 ng/mL Potenial Toxicity: >150 ng/mL 3Result Comment: Reference range: NEGATIVE Performed By: [facility] [address] [place], [place] [id number] Library Director: Bimal Zamora MD, PhD CLIA Number: [id number] 4Result Comment: Reference range: 80.0 to 155.0 Unit: ug/dL INTERPRETIVE INFORMATION: Copper, Serum or Plasma Elevated results may be due to skin or collection-related contamination, including the use of a noncertified metal-free collection/transport tube. If contamination concerns exist due to elevated levels of serum/plasma copper, confirmation with a second specimen collected in a certified metal-free tube is recommended. Serum copper may be elevated with infection, inflammation, stress, and copper supplementation. In females, elevated copper may also be caused by oral contraceptives and (concentrations may be elevated up to 3 times normal during the third trimester). This test was developed and its performance characteristics determined by [facility]. It has not been cleared or approved by the [place] Food and Drug Administration. This test was performed in a CLIA certified laboratory and is intended for clinical purposes. Performed By: [facility] [address] [place], [place] [id number] Library Director: Bimal Zamora MD, PhD CLIA Number: [id number] 5Result Comment: Testing Performed By: Dept of Pathology [facility], [address] [place] [id number] 6Result Comment: Testing Performed By: [facility], [address] [place] [id number] 7Result Comment: Reference range: 60.0 to 120.0 Unit: ug/dL INTERPRETIVE INFORMATION: Zinc, Serum or Plasma Elevated results may be due to skin or collection-related contamination, including the use of a noncertified metal-free collection/transport tube. If contamination concerns exist due to elevated levels of serum/plasma zinc, confirmation with a second specimen collected in a certified metal-free tube is recommended. Circulating zinc concentrations are dependent on albumin status and are depressed with malnutrition. Zinc may also be lowered with infection, inflammation, stress, oral contraceptives, and . Zinc may be elevated with zinc supplementation or fasting. Elevated zinc concentrations may interfere with copper absorption. This test was developed and its performance characteristics determined by [facility]. It has not been cleared or approved by the [place] Food and Drug Administration. This test was performed in a CLIA certified laboratory and is intended for clinical purposes. Performed By: [facility] [address] [place], [place] [id number] Library Director: Bimal Zamora MD, PhD CLIA Number: [id number] Social History Social History Type Response Smoking Status Never smoked cigaret calli Sex Female Sex Representation Female (finding) Patient Care team information Care Team Personnel Name: NEELIMA Solis Kimberly A Position: Physician Asst Exmpt - Family Med Member Role: Lifetime Relationship Address: [address] [facility] [address] [place] [address] [place] Name: GONZALO Lee Melvin J Position: Nurse Pract - Card Electrophys Member Role: Lifetime Relationship Address: [address] [facility] [address] [facility] [address] [place] [address] [place] Name: GONZALO Malone Stacey L Position: Nurse Pract - Cardiology Member Role: Lifetime Relationship Address: [address] [facility] [place] [address] [place] Name: Romina Sanchez Alisha Position: Pharmacist Member Role: Pharmacy - Lifetime Name: GONZALO Briscoe Michelle C Position: Nurse Pract - Card Electrophys Member Role: Lifetime Relationship Address: [address] [facility] [place] [address] [place] Name: MD Clemente Madhavi Position: Physician - Family Med Member Role: Primary Care Provider Address: [address] [facility] [place] [place] [address] [facility] [address] [place] Name: Romina Frankel Brittani Position: Pharmacist Member Role: Pharmacy - Lifetime Name: GONZALO Vickers Bonnie D Position: Nurse Pract - Surgery MIS Member Role: Lifetime Relationship Address: [address] [place] [address] [place] Care Team Related Persons Name: TR LAMBERT Name: NIKOLEALEXANDER
--- OUTSIDE RECORDS SUMMARY | 2023-11-14 15:41 | External Medical Summary | Continuity of Care Document ---
Author Name Unknown Organization [facility] 1850 [facility] [address] [place] [address] [phone] Care Team Providers Care Party Plan Sales Host/Hostess Name Role Phone Marcia Clemente Primary Care Physician [phone] [id number] Date(s): 10/06/23 - 10/06/23 [facility] 0 [facility] 207 [facility] Medical [facility] [address] [address] [place] [phone] Encounter Diagnosis Body mass index [BMI] 25.0-25.9, adult(Discharge Diagnosis) - 10/06/23 Generalized weakness(Discharge Diagnosis) - 10/06/23 Glossitis(Discharge Diagnosis) - 10/06/23 Dry mouth(Discharge Diagnosis) - 10/06/23 Dry throat(Discharge Diagnosis) - 10/06/23 Hypotension(Discharge Diagnosis) - 10/06/23 Hypertension(Discharge Diagnosis) - 10/06/23 Weakness(Final) - Glossitis(Final) - Age-related osteoporosis without current pathological fracture(Final) - Osteoporosis(Discharge Diagnosis) - 10/06/23 Need for hepatitis C screening test(Discharge Diagnosis) - 10/06/23 Medicare annual wellness visit, subsequent(Discharge Diagnosis) - 10/06/23 Discharge Disposition: Home or Self Care Attending Physician: MD Clemente Madhavi Allergies, Adverse Reactions, [...] GI Pain Act evangelina Lyrica anxiety Active Assessment and Plan Extracted from: Title:Office Visit Note Author:MD Bryn, Vickey i Date:10/06/23 1.Generalized weakness acute,undifferentiated,goal -furtherevaluation datachart reviewed Plan -suspectpresentation likely due toantihypertensiveagentsin setting oflower blood pressure readings.Advised to hold off hydrochlorothiazide and spironolactoneand updatevia portal in 2 days Also likely deconditioningfrom recent illnessas a contributor.Already working with physical therapy team Willalso check CBC [id number] Dto rule outother possible etiologies. 2.Glossitis Acuteundifferentiated,goal to improve symptoms Data none Plan -likely multifactorial -from drymouth due to scleroderma,possiblethrushin setting of recentsteroid use, Will also rule out B12 deficiency -order entered Nystatin swish and swallow prescription sent 3.Dry mouth Chronic symptomwith acute worsening,goalmanage acute symptomsas listed in #2 4.Dry throat Chronic symptoms with acute worsening,goal manage acute symptom as listed in #2 5.Hypotension Acute,undifferentiated, goal -manage blood pressure Datanone Plan -likely adverse effectofantihypertensive advised to holdHCTZ and spironolactone. Follow-up in 1 week. 6.Hypertension Chronicunstable,goal -managemedicationadverse effectin setting of recent changes Data none Plan -suspect that recent weight lossiscontributing to blood pressure drop. Advised to hold HCTZand spironolactone. Continue metoprolol Follow-up 1 week 7.Osteoporosis Chronic,stable,goalpreventfractures Data -reviewedDEXA results. plan -DEXA scan order entered. Has finishedmore than 5 years of bisphosphonate therapy. Bone density worse -will need to considerothergroup of medications. Vitamin D check ordered as above f/u 1 wk. Immunizations Given and Recorded Vaccine Date Status [...] 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, Brand Medically Necessary, Pharmacy: [id number] Start Date: 04/06/23 Stop Date: 03/31/24 Status: Ordered albuterol 1.25 mg/3 mL (0.042%) inhalation solution Start: 09/22/23 2:48:00 PM EDT, 3 mL, NEB, qid, Disp# 25 each, Refills: 1, Pharmacy: [id number] Start Date: 09/22/23 Status: [...] PO, Daily Start Date: 02/07/18 Status: Ordered Creon 6000 units oral delayed release capsule Start: 05/10/23 1:21:00 PM EDT, See Instructions, Disp# 270 cap, Refills: 3, TAKE 1 CAPSULE BY MOUTHTHREE TIMES DAILY, Pharmacy: [id number] Start Date: 05/10/23 Status: [...] Daily, Disp# 90 tab, Refills: 3, Pharmacy: [id number] Start Date: 10/22/22 Status: Ordered inhaler spacer Start: 12/14/21 3:53:00 PM EDT, See Instructions, Disp# 1 each, Use spacer whenever using inhaler, Pharmacy: [id number] Start Date: 12/14/21 Status: Ordered lactase Start: 10/15/15 10:34:00 AM EDT, PO, ac, with meals, PRN: As needed Start Date: 8/17/16 Status: Ordered magnesium oxide Start: 08/12/22 12:50:00 PM EDT, daily Start Date: 08/12/22 Status: Ordered Metoprolol Succinate ER 100 mg oral tablet, extended release Start: 05/12/23 1:31:00 PM EDT, See Instructions, Disp# 90 tab, Refills: 3, TAKE 1 TABLET BY MOUTH ONCE DAILY, Pharmacy: [id number] Start Date: 05/12/23 Status: [...] Ordered nystatin 100,000 units/mL oral suspension Start: 10/06/23 11:50:00 AM EDT, 5 mL, PO, qid, Disp# 200 mL, Pharmacy: [id number] Start Date: 10/06/23 Stop Date: 10/16/23 Status: Ordered omeprazole 40 mg oral delayed release capsule Start: 05/10/23 1:21:00 PM EDT, 1 cap, PO, Daily, Disp# 90 cap, Refills: 3, Pharmacy: [id number] Start Date: 05/10/23 Stop Date: 05/04/24 Status: Ordered Prednisol 1% ophthalmic solution Start: 12/04/19 2:04:00 PM EDT, both eyes, both eyes qAM, left eye qPM. Start Date: 12/04/19 Status: Ordered predniSONE 10 mg oral tablet Start: 09/28/23 10:42:00 AM EDT, See Instructions, Disp# 30 tab, 4 tabs (40mg) x 3 days, 3 tabs (30mg) x 3 days, 2 tabs (20mg) x 3 days, 1 tab (10mg) x 3 days, Pharmacy: [id number] Start Date: 09/28/23 Status: Ordered spironolactone 25 mg oral tablet Start: 03/28/23 9:56:00 AM EST, 1 tab, PO, Daily, Disp# 90 tab, Refills: 3, Pharmacy: [id number] Start Date: 03/28/23 Status: Ordered Tums 500 (1250 mg calcium carbonate) oral tablet, chewable Start: 08/16/16 10:55:00 AM EDT, 1 tab, PO, Daily, gi distress, PRN: Abdominal bloating - gas pain Start Date: 08/16/16 Status: Ordered Vitamin D3 Start: 11/16/16 2:38:00 PM EDT, 5,000 Int_Unit =, PO, Daily Start Date: 11/16/16 Status: Ordered Xarelto 20 mg oral tablet Start: 10/22/22 10:55:00 AM EDT, See Instructions, Disp# 90 tab, Refills: 3, TAKE 1 TABLET BY MOUTH EVERY EVENING, Pharmacy: [id number] Start Date: 10/22/22 Status: Ordered Zofran 4 mg oral tablet Start: 05/10/23 1:21:00 PM EDT, 1 tab, PO, Daily, Disp# 90 tab, Refills: 3, PRN: as needed for nausea/vomiting, Pharmacy: [id number] Start Date: 05/10/23 Stop Date: 05/04/24 Status: Ordered ZyrTEC 10 mg oral tablet Start: 08/16/16 11:19:00 AM EDT, 1 tab, PO, Daily Start Date: 08/16/16 Status: Ordered Mental Status 10/06/23 Barriers to Learning one year Acuity of illness, Vision impairment, Other: wears eye glasses, and uses a walking cane Communication Barrier Present No Health Literacy Communication Barriers N ever Primary Language Latvian 10/06/23 Mandatory Health Literacy Documentation Yes Problem List Condition Confirmation Course Effective Dates Status H ealth Status Informant Allergic rhinitis Confirmed Active Asthma Confirmed Active Atrial fibrillation Confirmed Active Chronic diarrhea Confirmed Active DYSPHAGIA Confirmed Active Pulmonary interstitial fibrosis Confirmed Active GERD with stricture Confirmed Active Gastroparesis Confirmed Active S/P ablation of atrial fibrillation Confirmed Active Hx of gastric bypass 1 Confirmed Active Hyperlipidemia Confirmed Active Hypertension Confirmed Active Long-term current use of anticoagulant [...] weight and uncontrolled DM 2sees pulmonary - [facility] 3PFT 04/04/17 4Has had reclast from 2014 to 2019 5Was on Boniva - [id number] - Improved bone density and stopped med. After bowel surgery - BMD dropped - Started on reclast [id number]. 6[facility] [place] [facility] 7last biopsy - 2016 - normal Diagnosis Diagnosis Type Effective Dates Health Status Clinical Service Informant Dry mouth Discharge Diagnosis 10/06/23 Non-Specified Dry throat Discharge Diagnosis 10/06/23 Non-Specified Hypotension Discharge Diagnosis 10/06/23 Non-Specified Generalized weakness Discharge Diagnosis 10/06/23 Non-Specified Body mass index [BMI] 25.0-25.9, adult Discharge Diagnosis 10/06/23 Non-Specified Glossitis Discharge Diagnosis 10/06/23 Non-Specified Hypertension Discharge Diagnosis 10/06/23 Non-Specified Osteoporosis Discharge Diagnosis 10/06/23 Non-Specified Need for hepatitis C screening test Discharge Diagnosis 10/06/23 Non-Specified Medicare annual wellness visit, subsequent Discharge Diagnosis 10/06/23 Non-Specified Procedures Procedure Date Related Diagnosis Body [...] outside mammograms dated 02/14/2018, 08/12/2017, 12/07/2016 from [facility] have become available comparison. Compared to [...] Complete Blood Count w Differential (CBC ,DIFFH) 10/06/23 Comprehensive Metabolic Panel (COMP META B PANEL) 10/06/23 Ferritin (FERRITIN) 10/06/23 Hepatitis C Antibody (HEP C AB) 10/06/23 Thyroid Stimulating Hormone (TSH) 10/06/23 Vitamin B12 Level (VITAMIN B12) 10/06/23 Vitamin D, 25-Hydroxy Level, Total (25-H YDROXY VITAMIN D) 10/06/23 Complete Blood Count w Differential (CBC ,DIFFH) 10/06/23 Comprehensive Metabolic Panel (COMP META B PANEL) 10/06/23 Ferritin (FERRITIN) 10/06/23 Thyroid Stimulating Hormone (TSH) 10/06/23 Vitamin B12 Level (VITAMIN B12) 10/06/23 Vitamin D, 25-Hydroxy Level, Total (25-H YDROXY VITAMIN D) 10/06/23 Most recent to oldest [Refer ence Range]: 1 2 eGFR CKD-EPI [>60 mL/min/1.73 m2] >90 mL /min/1.73 m2 1 (10/06/23 2:10 PM) UNABLE TO OBTAIN mL/min/1.73 m2 (10/06/23 12:31 PM) Vitamin D, 25-Hydroxy [30-10 0 ng/mL] 16 ng/mL 2 *LOW* (10/06/23 2:10 PM) UNABLE TO OBTAIN ng/mL (10/06/23 12:31 PM) Estimated CrCl 163.05 mL/min (10/06/23 3:10 PM) MPV [9.0-12.2 fL] 11.0 fL (10/06/23 2:10 PM) UNABLE TO OBTAIN fL (10/06/23 12:31 PM) Immature Gran% 1.2 % (10/06/23 2:10 PM) UNABLE TO OBTAIN % (10/06/23 12:31 PM) Neut% 83.5 % (10/06/23 2:10 PM) UNABLE TO OBTAIN % (10/06/23 12:31 PM) Lymph% 12.0 % (10/06/23 2:10 PM) UNABLE TO OBTAIN % (10/06/23 12:31 PM) Alpine% 3.2 % (10/06/23 2:10 PM) UNABLE TO OBTAIN % (10/06/23 12:31 PM) Baso% 0.1 % (10/06/23 2:10 PM) UNABLE TO OBTAIN % (10/06/23 12:31 PM) Eos% 0.0 % (10/06/23 2:10 PM) UNABLE TO OBTAIN % (10/06/23 12:31 PM) Immat Gran, Abs [0-0.4 K/uL] 0.15 K/uL (10/06/23 2:10 PM) UNABLE TO OBTAIN K/uL (10/06/23 12:31 PM) Neut, Abs [2.0-7.7 K/uL] 10.06 K/uL *HI* (10/06/23 2:10 PM) UNABLE TO OBTAIN K/uL (10/06/23 12:31 PM) Lymph, Abs [1.0-3.4 K/uL] 1.44 K/uL (10/06/23 2:10 PM) UNABLE TO OBTAIN K/uL (10/06/23 12:31 PM) Alpine, Abs [0-1.0 K/uL] 0.39 K/uL (10/06/23 2:10 PM) UNABLE TO OBTAIN K/uL (10/06/23 12:31 PM) Baso, Abs [0-0.1 K/uL] 0.01 K/uL (10/06/23 2:10 PM) UNABLE TO OBTAIN K/uL (10/06/23 12:31 PM) Eos, Abs [0-0.5 K/uL] 0.00 K/uL (10/06/23 2:10 PM) UNABLE TO OBTAIN K/uL (10/06/23 12:31 PM) Type of Diff: AUTO *Unknown* (10/06/23 2:10 PM) UNABLE TO OBTAIN (10/06/23 12:31 PM) RDW [11.5-14.2 %] 14.2 % (10/06/23 2:10 PM) UNABLE TO OBTAIN % (10/06/23:31 PM) Anion Gap [5-14 mmol/L] 8 mmol/L (10/06/23 2:10 PM) UNABLE TO OBTAIN mmol/L (10/06/23: PM) Alb [3.5-5.0 g/dL] 2.9 g/dL *LOW* (10/06/2310 PM) Alb [3.5-5.2 g/dL] UNABLE TO OBTAIN g/d L (10/06/23:31 PM) Alk Phos [38-126 unit/L] 83 unit/L (10/06/23 2:10 PM) Alk Phos [35-115 unit/L] UNABLE TO OBTAI N unit/L (10/06/23: PM) ALT [<35 unit/L] 75 unit/L *HI* (10/06/23 2:10 PM) ALT [0-33 unit/L] UNABLE TO OBTAIN uni t/L (10/06/23: PM) AST [15-46 unit/L] 60 unit/L *HI* (10/06/23 2:10 PM) AST [0-32 unit/L] UNABLE TO OBTAIN uni t/L (10/06/23:31 PM) B12 [211-946 pg/mL] 702 pg/mL (10/06/23 2:10 PM) UNABLE TO OBTAIN pg/mL (10/06/23:31 PM) BUN [7-20 mg/dL] 21 mg/dL *HI* (10/06/23 2:10 PM) BUN [6-23 mg/dL] UNABLE TO OBTAIN mg/ dL (10/06/23:31 PM) Ca [8.4-10.2 mg/dL] 7.7 mg/dL *LOW* (10/06/23 2:10 PM) UNABLE TO OBTAIN mg/dL (10/06/23:31 PM) Cl- [96-107 mmol/L] 100 mmol/L (10/06/23 2:10 PM) Cl- [98-107 mmol/L] UNABLE TO OBTAIN mmo l/L (10/06/23:31 PM) HCO3 [22-30 mmol/L] 27 mmol/L (10/06/23 2:10 PM) HCO3 [22-29 mmol/L] UNABLE TO OBTAIN mmo l/L (10/06/23: PM) Cret [0.60-1.00 mg/dL] 0.30 mg/dL *LOW* (10/06/23 2:10 PM) UNABLE TO OBTAIN mg/dL (10/06/23: PM) Ferritin [11.1-264.0 ng/mL] 32.7 ng/mL 3 (10/06/23 2:10 PM) Ferritin [13.0-150.0 ng/mL] UNABLE TO OB TAIN ng/mL (10/06/23: PM) Glu [74-106 mg/dL] 161 mg/dL *HI* (10/06/23 2:10 PM) Glu [74-109 mg/dL] UNABLE TO OBTAIN mg/ dL (10/06/23: PM) Hct [35-44 %] 35.5 % (10/06/23 2:10 PM) UNABLE TO OBTAIN % (10/06/23: PM) HCV Ab [NR] NONREACTIVE *Unknown* (10/06/23 2:10 PM) Hgb [11.7-15.0 g/dL] 11.0 g/dL *LOW* (10/06/23 2:10 PM) UNABLE TO OBTAIN g/dL (10/06/23: PM) K [3.5-5.1 mmol/L] 4.0 mmol/L (10/06/23 2:10 PM) UNABLE TO OBTAIN mmol/L (10/06/23: PM) MCH [28-33 pg] 32.5 pg (10/06/23 2:10 PM) UNABLE TO OBTAIN pg (10/06/23: PM) MCHC [32-36 g/dL] 31.0 g/dL *LOW* (10/06/23 2:10 PM) UNABLE TO OBTAIN g/dL (10/06/23:31 PM) MCV [81-96 fL] 105.0 fL *HI* (10/06/23 2:10 PM) UNABLE TO OBTAIN fL (8/8/24 12:31 PM) Na [137-145 mmol/L] 135 mmol/L *LOW* (10/06/23 2:10 PM) Na [136-145 mmol/L] UNABLE TO OBTAIN mmo l/L (10/06/23 12:31 PM) Plts [150-350 K/uL] 292 K/uL (10/06/23 2:10 PM) UNABLE TO OBTAIN K/uL (10/06/23 12:31 PM) RBC [3.90-5.00 M/uL] 3.38 M/uL *LOW* (10/06/23 2:10 PM) UNABLE TO OBTAIN M/uL (10/06/23 12:31 PM) T Bili [0.2-1.3 mg/dL] 0.9 mg/dL (10/06/23 2:10 PM) T Bili [0.0-1.2 mg/dL] UNABLE TO OBTAIN mg/dL (10/06/23 12:31 PM) Prot [6.3-8.2 g/dL] 5.7 g/dL *LOW* (10/06/23 2:10 PM) Prot [6.4-8.3 g/dL] UNABLE TO OBTAIN g/d L (10/06/23 12:31 PM) TSH [0.47-4.68 uIU/mL] 4.09 uIU/mL 4 (10/06/23 2:10 PM) TSH [0.30-4.20 uIU/mL] UNABLE TO OBTAIN uIU/mL (10/06/23 12:31 PM) WBC [4.0-10.4 K/uL] 12.05 K/uL *HI* (10/06/23 2:10 PM) UNABLE TO OBTAIN K/uL (10/06/23 12:31 PM) 1Result Comment: Testing Performed By: Dept of Pathology [facility] [address] [place] [address] 2Result Comment: Deficiency: <20 ng/mL Insufficiency: 21-29 ng/mL Sufficiency: 30-100 ng/mL Potenial Toxicity: >150 ng/mL 3Result Comment: Testing Performed By: Dept of Pathology [facility] [address], [address] [place] [address] 4Result Comment: Testing Performed By: [facility] [address], [address], [place] [address] Vital Signs Most recent to oldest [Reference Range]: 1 Height 166.6 cm (10/06/23 11:09 AM) Patient Weight 69.9 kg (10/06/23 11:09 AM) Body Mass Index 25.18 kg/m2 (10/06/23 11:09 AM) Temperature [36.5-37.9 DegC] 36.7 DegC (10/06/23 11:09 AM) Heart Rate 81 bpm (10/06/23 11:09 AM) Respiratory Rate 16 br/min (10/06/23 11:09 AM) Blood Pressure 108/62mmHg (10/06/23 11:09 AM) Social History Social History Type Response Smoking Status Never smoked cigaret calli Sex Female Sex Representation Female (finding) FCM Outpt Note * MD Bryn, Marcia: PERFORM Event Display: FCM Outpt Note Authored Date: Chief Complaint MAWV History of Present Illness Multiple other concerns - Weakness- weakness. generalized. Thinks that this has to do with lowprotein level. Has been having trouble eatingand so keeping up withproteindrinks throat has been dry swallowing worse in last few wks.thinks it is worse due to dry throat. Recentviral illness - Was treated with antibiotic and course of steroids still on neb rx and taking steroid. taking mucinex taking daily advair. Dry mouth Apart fromthe drynesshas alsonoted loss of taste. Osteoporosis Wondering aboutrecheck onbone density. stopped taking bisphosphonate due to oral surgery. Back pain and left leg weakness and paresthesia - Getting epidural injection and traction. back injections are on hold due to open wound. Still getting the traction. ABd wound - had it debrieded in Jan. then had wound vac. wound still not healed completely. Physical Exam Vitals & Measurements T:36.7C HR:81(Monitored) RR:16 BP:108/62 SpO2:94% HT:166.6cm WT:69.9kg WT:69.900kg(Dosing) BMI:25.18 PHQ2 Data(Data Documented on:10/06/2023 11:09) Emotional health assessment NEGATIVE Comfortably sitting in chair. Tongue -with loss of rugaeand darkdiscoloration. RRR Bilateraldiffuse crackles in both lung zepeda Abd -soft,dressing at the umbilical region. MSK -able tostand from the chairand walk up to the exam tablebut was not able toget up on the table due to feeling weak in the legs.No focal weakness noted Assessment/Plan 1.Generalized weakness acute,undifferentiated,goal -furtherevaluation datachart reviewed Plan -suspectpresentation likely due toantihypertensiveagentsin setting oflower blood pressure readings.Advised to hold off hydrochlorothiazide and spironolactoneand updatevia portal in 2 days Also likely deconditioningfrom recent illnessas a contributor.Already working with physicaltherapy team Willalso check CBC [id number] Dto rule outother possible etiologies. 2.Glossitis Acuteundifferentiated,goal to improve symptoms Data none Plan -likely multifactorial -from drymouth due to scleroderma,possiblethrushin setting of recentsteroid use, Will also rule out B12 deficiency -order entered Nystatin swish and swallow prescription sent 3.Dry mouth Chronic symptomwith acute worsening,goalmanage acute symptomsas listed in #2 4.Dry throat Chronic symptoms with acute worsening,goal manage acute symptom as listed in #2 5.Hypotension Acute,undifferentiated, goal -manage blood pressure Datanone Plan -likely adverse effectofantihypertensive advised to holdHCTZ and spironolactone. Follow-up in 1 week. 6.Hypertension Chronicunstable,goal -managemedicationadverse effectin setting of recent changes Data none Plan -suspect that recent weight lossiscontributing to blood pressure drop. Advised to hold HCTZand spironolactone. Continue metoprolol Follow-up 1 week 7.Osteoporosis Chronic,stable,goalpreventfractures Data -reviewedDEXA results. plan -DEXA scan order entered. Has finishedmore than 5 years of bisphosphonate therapy. Bone density worse -will need to considerothergroup of medications. Vitamin D check ordered as above f/u 1 wk. Problem List/Past Medical History Ongoing Allergic rhinitis Asthma Atrial fibrillation Chronic diarrhea DYSPHAGIA Gastroparesis GERD with stricture Hx of gastric bypass Hyperlipidemia Hypertension Leiomyoma of uterus Long-term current use of anticoagulant Macrocytic anemia [...] 4Repair of wound ofabdominal wall| Service Date: 01/28/2023hest X-ray| Service Date: 05/28/2022hest X-ray| Service Date: [...] mcg/inh MDI), 2 puff, inhaled, qid, PRN [id number](Beano), 450 unit, PO, tid, PRN calcium carbonate(Tums 500 (1250 mg calcium carbonate) oral tablet, chewable), 500 mg= 1 tab, PO, Daily, PRN cetirizine(ZyrTEC 10 mg oral tablet), 10 mg= [...] PO, Daily nystatin(nystatin 100,000 units/mL oral suspension), [id number] unit= 5 mL, PO, qid omega-3 polyunsaturated fatty acids(Transmension's Bounty Red Krill Oil 500 mg oral capsule) omeprazole(omeprazole 40 mg oral delayed release capsule), 1 cap, PO, Daily, 3 refills ondansetron(Zofran 4 mg oral tablet), 4 mg= 1 tab, PO, Daily, PRN, 3 refills pancrelipase(Creon 6000 units oral delayed release capsule), See Instructions, 3 refills prednisoLONE ophthalmic(Prednisol 1% ophthalmic solution), both eyes predniSONE(predniSONE 10 mg oral tablet), See Instructions rivaroxaban(Xarelto 20 mg oral tablet), See Instructions, 3 refills spironolactone(spironolactone 25 mg oral tablet), [...] No Risk 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 Grew up in [place], Moving from [place], [place]. 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 Tobacco - No Risk Family History Blood [...] virus vaccine, inactivated 12/02/2021 Recorded SARS-CoV-2 mRNA (tobrownnameran 5y-11y) 12/02/2021 Recorded SARS-CoV-2 (COVID-19) mRNA BNT-162b2 vax 07/01/2021 Recorded pneumococcal 23-valent vaccine 12/31/2020 Recorded Comments : [facility] influenza virus vaccine, inactivated 11/13/2020 [...] Due Adult Social Determinants of Health Screening due10/06/23Unknown Frequency Falls Plan of Care due10/06/23Unknown Frequency Shingles Vaccine due10/06/23One-time only Satisfied(in the past 1 year) Satisfied Body Mass Index on10/06/23.Satisfied by JENA Erwin [place] [facility] Screening on08/11/23.Satisfied by MD Clemente Madhavi Medicare Annual Wellness Visit on10/06/23.Satisfied by SYSTEM Electronic Signature on File Electronically Reviewed/Signed by: Marcia Clemente MD Author Signature Dt/Tm:10/06/2023 01:07 PM Department of Family Medicine [place] * MD Clemente Madhavi: PERFORM Event Display: Medicare Annual Wellness Visit Note Authored Date: [id number] Name:LJ AGUSTIN Patient Number: [id number] : 1955 Date of Service: 10/06/2023 Medicare Annual Wellness Visit Subsequent MAWV: Any MAWV performed after the Initial x_ Additional diagnosis with separately identified service provided per additional note. Vitals & Measurements T:36.7C HR:81(Monitored) RR:16 BP:108/62 SpO2:94% HT:166.6cm WT:69.9kg WT:69.900kg(Dosing) BMI:25.18 The Patient's BMI is over 25 which is considered overweight. x_Based on shared decision-making, no further intervention will be pursued at this time. _This is a chronic problem and is addressed in continuity. _Recommendations for resources, monitoring, support, safety, and surveillance were reviewed. _This warrants further evaluation at a follow-up or concurrent visit. Pain Assessment Pain Score: 0 Pain Severity: No Pain Acceptable pain score: 0 Opioid use Assessment: Opioid use and pain severity reviewed in medication reconciliation and vital signs. Chart review and inquiry of patient finds NO USE of opioids. PHQ2 Data(Data Documented on:10/06/2023 11:09) Emotional health assessment NEGATIVE Patient Self/Mood Assessment x_Based on shared decision-making, no further intervention will be pursued at this time. _This is a chronic problem and is addressed in continuity. _Recommendations for resources, monitoring, support, safety, and surveillance were reviewed. _This warrants further evaluation at a follow-up or concurrent visit. Assessment/Plan Hearing Screening Do you have any hearing problems, or have others told you that you might?None Comments Struggle to hear/understand conversation? No Have any known hearing problems? No Hearing Assessment PROVIDER DIRECT OBSERVATION-MUST COMPLETE x_No hearing problems were directly observed with this patient today. _Hearing problems were observed with this patient today and the plan is: _. PLAN-MUST COMPLETE FOR POSITIVE FINDING FROM PATIENT OR DIRECT OBSERVATION _Based on shared decision-making, no further intervention will be pursued at this time. _This is a chronic problem and is addressed in continuity. _Recommendations for resources, monitoring, support, safety, and surveillance were reviewed. _This warrants further evaluation at a follow-up or concurrent visit. Orientation Memory Concentration Test (OMCT) Orientation Score Indication:None or no significant cognitive impairment (0-4) Cognitive Screening (IF OMCT 0-4, no further assessment required) _Based on shared decision-making, no further intervention will be pursued at this time. _This is a chronic problem and is addressed in continuity. _Recommendations for resources, monitoring, support, safety, and surveillance were reviewed. _This warrants further evaluation at a follow-up or concurrent visit. Activities of Daily Living Assistance Assessment Comments Do you need help using the phone? No Do you need help managing your finances? No Do you need help shopping? (clothes, groceries, etc.) No Do you find you need help that is not available to you? No Do you need help preparing meals? No Do you need help keeping track of and taking your medications? No Do you need help getting to bed or to the toilet? No Do you need help to eat, bathe, or dress? No Do you need help walking? Yes uses walker - this is chronic problem Do you need help with transportation? No Do you ever go without a seatbelt in the car? No Do you need help with doing housework (cleaning, laundry)? Yes Park Worker once a week; this is chronic and has been working with a software specialist. ADL/IADL Assessment PROVIDER DIRECT OBSERVATION-MUST COMPLETE _The patient did not require help in the office today (e.g. with iADL/ADLs). _Patient required assistance in the office today (e.g. with iADL/ADLs) and the plan is: _. PLAN-MUST COMPLETE FOR POSITIVE FINDING FROM PATIENT OR DIRECT OBSERVATION _Based on shared decision-making, no further intervention will be pursued at this time. _This is a chronic problem and is addressed in continuity. _Recommendations for resources, monitoring, support, safety, and surveillance were reviewed. _This warrants further evaluation at a follow-up or concurrent visit. Falls Assessment Are you permanently unable to walk? No Have you fallen more than once in the past year? No Have you fallen and hurt yourself in the past year? No Is it hard for you to climb stairs or walk short distances? Yes - acute worsening likely from lower BP readings while on antihypertensives and deconditionining. see other noted. has already moved into 55+independent appt to avoid use of stairs. Do any of these potential fall hazards exist in your home? None Do these safety features exist in your home? (e.g. bathroom grab bars, stair handrails) Bathroom grab bars Falls Assessment PROVIDER DIRECT OBSERVATION-MUST COMPLETE _There was no difficulty with the patients ambulation observed today. x_The patient was observed to have difficulty with ambulation today. The plan is: _ this is chronic. using walker and seeing spine and pain management team. PLAN-MUST COMPLETE FOR POSITIVE FINDING FROM PATIENT OR DIRECT OBSERVATION x_Based on shared decision-making, no further intervention will be pursued at this time. _This is a chronic problem and is addressed in continuity. _Recommendations for resources, monitoring, support, safety, and surveillance were reviewed. _This warrants further evaluation at a follow-up or concurrent visit. Incontinence Plan Comments Do you have difficulty getting to the bathroom on time? No Do you leak urine when you do not want to, such as when coughing, sneezing, laughing? Sometimes When waiting too lung due to use of walker. uses sanitary pads. Do you leak urine while sleeping? No Incontinence Assessment x_Based on shared decision-making, no further intervention will be pursued at this time. _This is a chronic problem and is addressed in continuity. _Recommendations for resources, monitoring, support, safety, and surveillance were reviewed. _This warrants further evaluation at a follow-up or concurrent visit. Patient Health Self Assessment (Indicate in Comments for each red/positive response an assessment and plan for the patient) COUNSELING/PLAN/REFERRAL Have you seen a dental or orthodontic provider in the last year? Yes Do you always wear a seat belt in moving vehicles? Yes Do you exercise at least 150 minutes a week? Yes Do you consider your diet unhealthy? No Do you use tobacco? No Have you had 5 or more servings of alcohol in one day within the past year? No Do you use illegal street or prescription drugs? No Do you have a new sexual partner this year? No Are you having difficulty completing or enjoying sex? No Would you consider your overall health to be poor? Yes see other note for acute contributors to the health. has multiple comorbidities - being managed by specialty team. Do you feel disappointed with your life as it is? No Do you feel you have poor sleep? Yes sleep got worse due to acute viral illness in setting of Pul fibrosis. It is getting better. using prn melatonin is also helping her. No further intervention needed. Do you often feel lonely? No Do you struggle with your temper? No Does pain impact your life? Yes Chronic back pain - acute worsening due to not having back injection - but resuming traction has improved the symptoms. Do you often feel tired during the day? No Advance Directive End of Life Discussion No qualifying data available. If no qualifying data available, choose a discussion and planning intervention below. Other_ Has livingwill ovi. Willprovide us acopy ofit Advance Care Planning (ACP) Discussion Did not occur at this visit. Language Barrier/Educational Preference Barriers to Learning one year: Acuity of Illness, Vision impairment, Other: wears eye glasses, and uses a walking cane Communication Barrier Present: No Educational Needs Assessed one year: Yes Health Literacy Communication Barriers: Never Learning Preferences one year: Verbal Explanation, Demonstration - Model Simulation, Printed Instructions Primary Language: Latvian Medications The patients preferred pharmacy has been reviewed and confirmed. Home acetaminophen-traMADol(acetaminophen-traMADol 325 mg-37.5 mg oral tablet), 1 tab, PO, q4h, PRN albuterol(albuterol 1.25 mg/3 mL (0.042%) inhalation solution), 1.25 mg= 3 mL, NEB, qid, 1 refills albuterol(albuterol CFC free 90 mcg/inh MDI), 2 puff, inhaled, qid, PRN [id number]-L-[id number](Beano), 450 unit, PO, tid, PRN calcium carbonate(Tums 500 (1250 mg calcium carbonate) oral tablet, chewable), 500 mg= 1 tab, PO, Daily, PRN cetirizine(ZyrTEC 10 mg oral tablet), 10 mg= [...] tablet), 1000 mg= 2 tab, PO, Daily omega-3 polyunsaturated fatty acids(Nature's Bounty Red Krill Oil 500 mg oral capsule) omeprazole(omeprazole 40 mg oral delayed release capsule), 1 cap, PO, Daily, 3 refills ondansetron(Zofran 4 mg oral tablet), 4 mg= 1 tab, PO, Daily, PRN, 3 refills pancrelipase(Creon 6000 units oral delayed release capsule), See Instructions, 3 refills prednisoLONE ophthalmic(Prednisol 1% ophthalmic solution), both eyes predniSONE(predniSONE 10 mg oral tablet), See Instructions rivaroxaban(Xarelto 20 mg oral tablet), See Instructions, 3 refills spironolactone(spironolactone 25 mg oral tablet), 1 tab, PO, Daily triamcinolone nasal(Nasacort Allergy 24HR), 2 spray, intranasal, Daily, PRN unlisted medication(Eye Vitamin), 1 tab, PO, Daily Problem List/Past Medical History Ongoing Allergic rhinitis Asthma Atrial fibrillation Chronic diarrhea DYSPHAGIA Gastroparesis GERD with stricture Hx of gastric bypass Hyperlipidemia Hypertension Leiomyoma of uterus Long-term current use of anticoagulant Macrocytic anemia [...] History Mammogram| Service Date: 4Colonoscopy| Service Date: 06/29/2023epair of wound ofabdominal wall| Service Date: 01/28/2023hest X-ray| Service Date: 05/28/2022hest X-ray| Service Date: [...] Date: 2006Dilation and curettage| Service Date: 1991 Procedure History Last Reviewed by:MD Clemente Madhavi on 10/06/2023 11:14 Family History Blood clots in membranes: Paternal [...] Mother, Age: Unknown Relationship: Father, Age: Unknown Family History Last Reviewed by:MD Clemente Madhavi on 10/06/2023 11:14 Allergies metoclopramide(Severe)elevated LFTs BextraSwelling CelebrexConfusion, GI Upset Lyricaanxiety Percocet 7.5/325GI Pain Zocorpassed out, lightheaded gold sodium thiomalateunknown ibuprofenGI Pain medtronidazole containing compoundsstomach upset naproxenGI Pain Care Team Programmer Or Analyst Juan Jenkins Coconut Cooker [facility] and [place] Neurologist unsure who she saw. Physical Therapy [facility] Rerolling Machine Operator [facility] Other medical providers (e.g. Guard Entrance Registrar, Orthopedist) Pulmonology CT, [facility] as well [facility] Other team members (e.g. Child And Family Counselor, Instrumental Musician) [facility] Recommendations Health Maintenance Pending(in the next year) OverDue Adult Influenza Vaccine due08/28/23and every 1year Due Adult Social Determinants of Health Screening due10/06/23Unknown Frequency Falls Plan of Care due10/06/23Unknown Frequency Medicare Annual Wellness Visit due10/06/23and every 1year Shingles Vaccine due10/06/23One-time only Satisfied(in the past 1 year) Satisfied Body Mass Index on10/06/23.Satisfied by JENA Erwin [place] Breast Cancer Screening on08/11/23.Satisfied by MD Clemente Madhavi Health Maintenance Schedule Colorectal Cancer Screening: Completed _2023 Diabetes screening: Completed _April 2023 Cholesterol screening: Completed _2021 HIV Screening: N/A _ Hepatitis C Screening: Ordered _ Lung Cancer Screening: N/A _ AAA Screening: N/A _ Mammography: Completed _july 2023 Osteoporosis: Completed _2018 Prostate Cancer Screening: N/A _ Welcome to Medicare ECG Screening: N/A _ Electronic Signature on File Electronically Reviewed/Signed by: Marcia Clemente MD Author Signature Dt/Tm:10/06/2023 01:05 PM Department of Family Medicine [place] Patient Care team information Care Team Personnel Name: NEELIMA Solis, Shelia Garcia Position: Physician Asst Exmpt - Family Med Member Role: Lifetime Relationship Address: [address] [place] [address] [place] Name: GONZALO Lee Melvin J Position: Nurse Pract - Card Electrophys Member Role: Lifetime Relationship Address: [address] [place] [address] [place] Name: GONAZLO Malone Stacey L Position: Nurse Pract - Cardiology Member Role: Lifetime Relationship Address: [address] [place] [address] [place] Name: Romina Sanchez Alisha Position: Pharmacist Member Role: Pharmacy - Lifetime Name: GONZALO Briscoe Michelle C Position: Nurse Pract - Card Electrophys Member Role: Lifetime Relationship Address: [address] [place] [address] [place] Name: MD Clemente Madhavi Position: Physician - Family Med Member Role: Primary Care Provider Address: [address] [place] [address] [place] Name: Romina Frankel Brittani Position: Pharmacist Member Role: Pharmacy - Lifetime Name: GONZALO Vickers Bonnie D Position: Nurse Pract - Surgery MIS Member Role: Lifetime Relationship Address: [address] [place] [address] [place] Care Team Related Persons Name: TR LAMBERT Name: ALEXANDER AGUSTIN"
--- OUTSIDE RECORDS SUMMARY | 2023-11-14 15:41 | External Medical Summary | Continuity of Care Document ---
Author Name Unknown Organization [facility] [address] [facility] [address] [place] [phone] Care Team Providers Care Transaction Advisory Services Manager Name Role Phone Marcia Clemente Primary Care Physician [phone] [id number] Date(s): 09/28/23 - 09/28/23 [facility] [address] [facility] [address] [facility], [facility] [address] [place] [address] [place] [phone] Encounter Diagnosis Pulmonary interstitial fibrosis(Discharge Diagnosis) - 09/28/23 Discharge Disposition: Home or Self Care Attending Physician: MD Pineda Jonathan D Allergies, Adverse Reactions, Alerts Substance Criticality Severity [...] Act evangelina Assessment and Plan Extracted from: Title:Office Visit Note Author:DO Cole Clair e S Date:09/28/23 1.Pulmonary interstitial f ibrosis Chronic condition not at goal/exacerbated/progressive/side effects of treatment Goal: Resolution Data: unique tests reviewed: _CXR, D/c summary May 2022, Pulm note 03/2023 Plan: Flair of ILD in the setting of viral illness. Plan for prednisone taper- 40mg x 3 days, 30mg x 3 days, 20mg x 3 days, 10mg x 3 days. Complete 7 day course of antibiotic, consider adding azithromycin depending on response to prednisone. F/u in office 3 days. ED precautions- SpO2 less than 90, pleuritic pain, chest pain, worsening dyspnea Immunizations Given and Recorded Vaccine Date Status Refusal Reason SARS COVID Vaccine Unspecified 12/08/22 Recorded RSV vaccine preF3, recombinant 10/20/22 Recorded influenza virus vaccine, inactivated 12/02/21 Edson rded influenza virus vaccine, inactivated 11/13/20 Edson rded influenza virus vaccine, inactivated 12/03/19 Edson rded influenza virus vaccine, inactivated 12/03/19 Edson rded influenza virus vaccine, inactivated 11/16/18 Give n SARS-CoV-2 mRNA (tobrownnameran 5y-11y) 12/02/21 Edson rded SARS-CoV-2 (COVID-19) mRNA [...] Comment: 2020-11-14: Historical information-source unspecified 4Result Comment: [facility] 5Result Comment: 2020-01-31: Historical information-source [...] 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, Brand Medically Necessary, Pharmacy: [id number] Start Date: 04/06/23 Stop Date: 03/31/24 Status: Ordered albuterol 1.25 mg/3 mL (0.042%) inhalation solution Start: 09/22/23 2:48:00 PM EDT, 3 mL, NEB, qid, Disp# 25 each, Refills: 1, Pharmacy: [id number] Start Date: 09/22/23 [...] 1 CAPSULE BY MOUTHTHREE TIMES DAILY, Pharmacy: [id number] Start Date: 05/10/23 Status: Ordered cyanocobalamin 500 mcg oral tablet Start: 08/16/16 11:11:00 AM EDT, 1 tab, PO, Daily Start Date: 08/16/16 Status: Ordered doxycycline hyclate 100 mg oral capsule Start: 09/22/23 2:43:00 PM EDT, 1 cap, PO, bid, Disp# 14 cap, Refills: 0, Pharmacy: [id number] Start Date: 09/22/23 Stop Date: 09/29/23 Status: Ordered Eye Vitamin Start: 11/16/16 2:39:00 PM EDT, Eye Vitamin, 1 tab, PO, Daily, 2200 mg Fuish Oil 2000 mg Vit D 10 mgLutein 2 mg zeaxanthin Start Date: 11/16/16 Status: Ordered hydroCHLOROthiazide 25 mg oral tablet Start: 10/22/22 10:55:00 AM EDT, 0.5 tab, PO, Daily, Disp# 90 tab, Refills: 3, Pharmacy: [facility] Start Date: 10/22/22 Status: Ordered inhaler spacer Start: 12/14/21 3:53:00 PM EDT, See Instructions, Disp# 1 each, Use spacer whenever using inhaler, Pharmacy: [id number] Start Date: 12/14/21 [...] 1 TABLET BY MOUTH ONCE DAILY, Pharmacy: [id number] Start Date: 05/12/23 [...] PM EDT Start Date: 06/23/22 Status: Ordered omeprazole 40 mg oral delayed release capsule Start: 05/10/23 1:21:00 PM EDT, 1 cap, PO, Daily, Disp# 90 cap, Refills: 3, Pharmacy: [id number] Start Date: 05/10/23 [...] 1 tab (10mg) x 3 days, Pharmacy: [id number] Start Date: 09/28/23 Status: Ordered spironolactone 25 mg oral tablet Start: 03/28/23 9:56:00 AM EST, 1 tab, PO, Daily, Disp# 90 tab, Refills: 3, Pharmacy: [facility] Start Date: 03/28/23 [...] 1 TABLET BY MOUTH EVERY EVENING, Pharmacy: [id number] Start Date: 10/22/22 Status: Ordered Zofran 4 mg oral tablet Start: 05/10/23 1:21:00 PM EDT, 1 tab, PO, Daily, Disp# 90 tab, Refills: 3, PRN: as needed for nausea/vomiting, Pharmacy: [id number] Start Date: 05/10/23 Stop Date: 05/04/24 Status: Ordered ZyrTEC 10 mg oral tablet Start: 08/16/16 11:19:00 AM EDT, 1 tab, PO, Daily Start Date: 08/16/16 Status: Ordered Mental Status 09/28/23 Barriers to Learning one year Acuity of illness, Vision impairment, Other: wears eye glasses, and uses a walking cane Mandatory Health Literacy Documentation Yes Health Literacy Communication Barriers N ever Primary Language Persian Problem List Condition Confirmation Course Effective Dates [...] wound of abdominal wall Confirmed Active Osteoporosis 4 Confirmed Active Raynaud's disease Confirmed Active Sacral radiculopathy Confirmed Active Small intestinal bacterial overgrowth (SIBO) Confirmed Active Spinal stenosis Confirmed Active Scleroderma 5 Confirmed Active Thyroid nodule 6 Confirmed Active Leiomyoma of uterus Confirmed Active Vitamin D deficiency Confirmed Active 1for weight and uncontrolled DM 2sees pulmonary [facility] 3PFT 04/04/17 4Was on Boniva - [id number] - Improved bone density and stopped med. After bowel surgery - BMD dropped - Started on reclast [id number]. 5Dr [facility] 6last biopsy - 2017 - normal Diagnosis Diagnosis Type Effective Dates Health Status Clinical Service Informant Pulmonary interstitial fibrosis Discharge Diagnosis 09/28/23 Non-Specified Procedures Procedure Date Related Diagnosis Body [...] outside mammograms dated 02/14/2018, 08/12/2017, 12/07/2016 from [facility] have become available comparison. Compared to [...] to oldest [Reference Range]: 1 Patient Weight 67.6 kg (09/28/23 10:16 AM) Temperature [36.5-37.9 DegC] 36.6 DegC (09/28/23 10:16 AM) Blood Pressure 122/70mmHg (09/28/23 10:16 AM) BP Location # 1 Left Arm (09/28/23 10:16 AM) Social History Social History Type Response Smoking Status Never smoked cigaret calli Sex Female Sex Representation Female (finding) FCM Outpt Note * MD Meet, Jr Yu: MODIFY MD Dsouza Mark B: MODIFY Event Display: FCM Outpt Note Authored Date: Chief Complaint Here for cough and breathing issues. Seen here last wk for same. No better. History of Present Illness 68 year old female presenting with concern for ongoing URI symptoms. Past Medical History:scleroderma w pulm fibrosis - seen in office 08/23/23; CXR without acute pathology - started on doxycyclinex 7 days + AlbuterolnebsQID - minimal improvement - continues to have non-productivecough, dyspnea -Denies fever, chills, chest pain, pleuritic pain - has pulse ox at home low 90s/high 80s in morning, quickly improves to 90s - lives alone, sister lives a few miles away - F/u pulmonology 10/24/2023 Review of Systems As per above Physical Exam Vitals & Measurements T:36.6C BP:122/70 SpO2:94% WT:67.6kg WT:67.600kg(Dosing) PHQ2 Data(Data Documented on:09/28/2023 10:15) Emotional health assessment NEGATIVE General:Well-developed, well-nourished patient, in no acute distress, pleasant and normal affect, intact memory. Eyes:No scleral injection or discharge. Lungs:Mildly increased work of breathing. Diffuse wheezing with course breath sounds and crackles throughout Cardiac:Regular rate and rhythm.No murmurs. Neurologic:Grossly intact cranial nerves Assessment/Plan 1.Pulmonary interstitial fibrosis Chronic condition not at goal/exacerbated/progressive/side effects of treatment Goal: Resolution Data: unique tests reviewed: _CXR, D/c summary May 2022, Pulm note 03/2023 Plan: Flair of ILD in the setting of viral illness. Plan for prednisone taper- 40mg x 3 days, 30mg x 3 days, 20mg x 3 days, 10mg x 3 days. Complete 7 day course of antibiotic, consider adding azithromycin depending on response to prednisone. F/u in office 3 days. ED precautions- SpO2 less than 90, pleuritic pain, chest pain, worsening dyspnea Attestation I saw the patient and confirmed the rizzo portions of the history and physical exam and agree with the above impression and plan. Fatigued in appearance. Ill but not toxic. Relates that prednisone has been helpful in the past in a similar situation. Exam with wheezes and crackles as noted. Problem List/Past Medical History Ongoing Allergic rhinitis [...] 11/26/2020Thyroid Ultrasound| Service Date: 08/11/2020Mammography| Service Date: 1Cardioversion| Service Date: 02/28/2020DEXA - dual energy X-ray [...] mcg/inh MDI), 2 puff, inhaled, qid, PRN ikvst-E-tkqnbeveqjnwf(Beano), 450 unit, PO, tid, PRN calcium carbonate(Tums 500 (1250 mg calcium carbonate) oral tablet, chewable), 500 mg= 1 tab, PO, Daily, PRN cetirizine(ZyrTEC 10 mg oral tablet), 10 mg= 1 tab, PO, Daily cholecalciferol(Vitamin D3), 5000 Int_Unit, PO, Daily cyanocobalamin(cyanocobalamin 500 mcg oral tablet), 500 mcg= 1 tab, PO, Daily doxycycline(doxycycline hyclate 100 mg oral capsule), 100 mg= 1 cap, PO, bid fluticasone-salmeterol(Advair HFA 115 mcg-21 mcg), 2 puff, [...] 2 tab, PO, Daily omega-3 polyunsaturated fatty acids(CloudSlides's Bounty Red Krill Oil 500 mg oral [...] No Risk Employment/School Status:Retired 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 Grew up in [place], Moving from [place], [place]. 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 Tobacco - No Risk Family History Blood [...] Relationship: Father, Age: Unknown Immunizations Vaccine Date StatusSARS COVID Vaccine Unspecified 12/08/2022 Recorded RSV vaccine preF3, recombinant 10/20/2022 Recorded influenza virus vaccine, inactivated 12/02/2021 Recorded SARS-CoV-2 mRNA (tozinameran 5y-11y) 12/02/2021 Recorded SARS-CoV-2 (COVID-19) mRNA BNT-162b2 vax 07/01/2021 Recorded pneumococcal 23-valent vaccine 12/31/2020 Recorded Comments : [facility] influenza virus vaccine, inactivated 11/13/2020 [...] Due Adult Social Determinants of Health Screening due09/28/23Unknown Frequency Falls Plan of Care due09/28/23Unknown Frequency Medicare Annual Wellness Visit due09/28/23and every 1year Shingles Vaccine due09/28/23One-time only Satisfied(in the past 1 year) Satisfied Body Mass Index on09/22/23.Satisfied by SHAZIA Keen [place] Breast Cancer Screening on08/11/23.Satisfied by MD Bryn, Marcia Electronic Signature on File Electronically Reviewed/Signed by: Kimberli Cole DO Author Signature Dt/Tm:09/28/2023 09:56 PM Resident Department of Family Medicine Electronically Reviewed/Signed by: Jr Dsouza MD Cosigner Signature Dt/Tm: 09/29/2023 10:10 AM Department of Family Medicine CSN Patient Care team information Care Team Personnel Name: NEELIMA Solis Kimberly A Position: Physician Asst Exmpt - Family Med Member Role: Lifetime Relationship Address: [address] [facility] [address] [place] [address] [place] Name: GONZALO Lee Melvin J Position: Nurse Pract - Card Electrophys Member Role: Lifetime Relationship Address: [address] [facility] [address] [place] [address] [place] Name: GONZALO Malone Stacey L Position: Nurse Pract - Cardiology Member Role: Lifetime Relationship Address: [address] [facility] [place] [place] [address] [place] Name: Romina Sanchez Alisha Position: Pharmacist Member Role: Pharmacy - Lifetime Name: GONZALO Briscoe Michelle C Position: Nurse Pract - Card Electrophys Member Role: Lifetime Relationship Address: [address] [place] [place] [address] [place] Name: MD Clemente Madhavi Position: Physician - Family Med Member Role: Primary Care Provider Address: [address] [address] [place] Name: Romina Frankel Brittani Position: Pharmacist Member Role: Pharmacy - Lifetime Name: GONZALO Vickers Bonnie D Position: Nurse Pract - Surgery MIS Member Role: Lifetime Relationship Address: [address] [place] [address] [place] Care Team Related Persons Name: TR LAMBERT Name: NIKOLEALEXANDER"
--- OUTSIDE RECORDS SUMMARY | 2023-11-14 15:41 | External Medical Summary | Continuity of Care Document ---
Author Name Unknown Organization [facility] [address] [facility] [address] [place] [phone] Care Team Providers Care Radio Equipment Installer Name Role Phone Marcia Clemente Primary Care Physician [phone] Encounter [facility] [id number] Date(s): 09/22/23 - 09/22/23 [facility] 0 [address] [facility] 207 [facility] Medical [facility] [address] 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 Date: Michelle Agustin is a 68yo fema le with PMH of scleroderma w pulm fibrosisand gastroparesis, afib (s/p ablation), HTN, HPLD, andchronicbackpain +neuropathy (in PT, uses rollator), who presents to clinic today for 1 week of cough and URI symptoms. 1.Cough Acute w/ systemic symptoms or complicated injury Goal: resolution of sx, SpO2 > 90% Data: reviewed past hospitalization labs, discharge summary, Plan: ordered CXR; rx'd doxycycline for 7d, albuterol nebulizer; continue pulse ox at home. Patient advised to RTC if sx persist or worsen despite tx. 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 condition not at goal/exacerbated/progressive/side effects of treatment Plan: see #1 above _ Immunizations Given and Recorded Vaccine Date Status [...] Comment: 2020-11-14: Historical information-source unspecified 4Result Comment: [facility] 5Result Comment: 2020-01-31: Historical information-source [...] 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, Brand Medically Necessary, Pharmacy: [id number] Start Date: 04/06/23 Stop Date: 03/31/24 Status: Ordered albuterol 1.25 mg/3 mL (0.042%) inhalation solution Start: 09/22/23 2:48:00 PM EDT, 3 mL, NEB, qid, Disp# 25 each, Refills: 1, Pharmacy: [id number] Start Date: 09/22/23 Status: [...] 1 CAPSULE BY MOUTHTHREE TIMES DAILY, Pharmacy: [id number] Start Date: 05/10/23 Status: Ordered cyanocobalamin 500 mcg oral tablet Start: 08/16/16 11:11:00 AM EDT, 1 tab, PO, Daily Start Date: 08/16/16 Status: Ordered doxycycline hyclate 100 mg oral capsule Start: 09/22/23 2:43:00 PM EDT, 1 cap, PO, bid, Disp# 14 cap, Refills: 0, Pharmacy: [id number] Start Date: 09/22/23 Stop Date: 09/29/23 Status: Ordered Eye Vitamin Start: 11/16/16 2:39:00 PM EDT, Eye Vitamin, 1 tab, PO, Daily, 2200 mg Fuish Oil 2000 mg Vit D 10 mgLutein 2 mg zeaxanthin Start Date: 11/16/16 Status: Ordered hydroCHLOROthiazide 25 mg oral tablet Start: 10/22/22 10:55:00 AM EDT, 0.5 tab, PO, Daily, Disp# 90 tab, Refills: 3, Pharmacy: [id number] Start Date: 10/22/22 Status: Ordered inhaler spacer Start: 12/14/21 3:53:00 PM EDT, See Instructions, Disp# 1 each, Use spacer whenever using inhaler, Pharmacy: [id number] Start Date: 12/14/21 Status: [...] 1 TABLET BY MOUTH ONCE DAILY, Pharmacy: [id number] Start Date: 05/12/23 Status: [...] Daily, Disp# 90 cap, Refills: 3, Pharmacy: [id number] Start Date: 05/10/23 Stop Date: 05/04/24 Status: Ordered Prednisol 1% ophthalmic solution Start: 12/04/19 2:04:00 PM EDT, both eyes, both eyes qAM, left eye qPM. Start Date: 12/04/19 Status: Ordered spironolactone 25 mg oral tablet Start: 03/28/23 9:56:00 AM EST, 1 tab, PO, Daily, Disp# 90 tab, Refills: 3, Pharmacy: [id number] Start Date: 03/28/23 Status: [...] 1 TABLET BY MOUTH EVERY EVENING, Pharmacy: [id number] Start Date: 10/22/22 Status: Ordered Zofran 4 mg oral tablet Start: 05/10/23 1:21:00 PM EDT, 1 tab, PO, Daily, Disp# 90 tab, Refills: 3, PRN: as needed for nausea/vomiting, Pharmacy: [id number] Start Date: 05/10/23 Stop Date: 05/04/24 Status: Ordered ZyrTEC 10 mg oral tablet Start: 08/16/16 11:19:00 AM EDT, 1 tab, PO, Daily Start Date: 08/16/16 Status: Ordered Mental Status 09/22/23 Barriers to Learning one year Acuity of illness, Vision impairment, Other: wears eye glasses, and uses a walking cane Mandatory Health Literacy Documentation Yes Health Literacy Communication Barriers N ever Primary Language Hungarian Problem List Condition Confirmation Course Effective Dates [...] weight and uncontrolled DM 2sees pulmonary - [facility] 3PFT 04/04/17 4Was on Boniva - [id number] - Improved bone density and stopped med. After bowel surgery - BMD dropped - Started on reclast [id number]. [address] [facility] biopsy - 2016 - normal Diagnosis Diagnosis Type Effective Dates Health Status Clinical Service Informant Mixed restrictive and obstructive lung disease Discharge Diagnosis 09/22/23 Non-Specified Cough Discharge Diagnosis 09/22/23 Non-Specified Bronchitis Discharge Diagnosis 09/22/23 Non-Specified Body mass index [BMI] 24.0-24.9, adult Discharge Diagnosis 09/22/23 Non-Specified Procedures Procedure Date Related Diagnosis Body [...] outside mammograms dated 02/14/2018, 08/12/2017, 12/07/[address] [facility] have become available comparison. Compared to [...] recent to oldest [Reference Range]: 1 Height 165 cm (09/22/23 1:56 PM) Patient Weight 67.2 kg (09/22/23 1:56 PM) Body Mass Index 24.68 kg/m2 (09/22/23 1:56 PM) Temperature [36.5-37.9 DegC] 36.6 DegC (09/22/23 1:56 PM) Heart Rate 101 bpm (09/22/23 1:56 PM) Respiratory Rate 18 br/min (09/22/23 1:56 PM) Blood Pressure 110/64mmHg (09/22/23 1:56 PM) Cuff Pulse Pressure 46 mmHg (09/22/23 1:56 PM) Social History Social History Type Response Smoking Status Never smoked cigaret calli Sex Female Sex Representation Female (finding) [facility] Outpt Note * DO Muñoz Franklin J: MODIFY DO Muñoz Franklin J: MODIFY, MODIFY, MODIFY, MODIFY, MODIFY, MODIFY Event Display: [facility] Outpt Note Authored Date: [id number] Chief Complaint has been sick for about a week. short of breath, tight chest, wheezing, productive cough. History of Present Illness Michelle is here today with cough and cold symptoms, complicated by pulmonary fibrosis 2/2 to scleroderma. She was hospitalized last spring (April 2022) for a similar episode, and she reports improvement with a short steroid taper and doxycycline. Her current symptoms started last (~1wk) and she reports theywax and wane. She has had some relief with heradvair,rescue inhaler, & mucinex but the symptoms return. She still has anebulizer, but no medication for it. The cough is constant, makes it hard to take a deep breath, andis productive of sputum (initially clear, nowyellow-kasi, no blood). She also reports having a sore throat and BROWN. She says she felt warm some days but did not check her temperature. She does havea pulse ox at home which she checks regularly, and says it has gone down to 90% several days but nolower. She reports trouble lying down, and says she has been sleeping in her recliner. She also hashad a poor appetite; she normally has trouble eating due to GI complications a/w scleroderma, but these past few days she has been unable to take in anything other than protein shakes. She feels about the same as she has all week, but is concerned about getting ahead of this illness before hospitalization is needed. Review of Systems Constitutional: +fever; No chills, No fatigue. Respiratory: + SOB,productive cough,mild hypoxia (pulse ox low of 90%) Cardiovascular:No chest pain ortightness, No palpitations Gastrointestinal: + poor appetite, nausea; No vomiting, No abd pain Musculoskeletal: + chronic lowback pain, arthritis;Nomuscle or jointaches Skin: No rash, No pruritus, No bleeding or bruising Neurologic: + BROWN, b/l LE weakness, numbness, tingling occasionally Physical Exam Vitals & Measurements T:36.6C HR:101(Monitored) RR:18 BP:110/64 SpO2:97% HT:165cm WT:67.200kg(Dosing) WT:67.2kg BMI:24.68 PHQ2 Data(Data Documented on:09/22/2023 13:54) Emotional health assessment NEGATIVE General:AOx3, NAD HEENT: NCAT,no sinus tenderness,conjunctiva normal, no LAD Cardiovascular:regular rhythm, elevated rate, no m/r/g Respiratory:dry cough,inspiratory stridor, expiratory wheeze, b/l basilar crackles Gastrointestinal:Soft, NT/ND, +BS Musculoskeletal: Normal ROM Neurologic:CN II-XII grossly intact, stooped posture, gait normal Integumentary:Warm, Dry, [place], No lesions Psych: Mood-affect congruent. Speech pace and content normal Assessment/Plan Michelle Agustin is a 68yo female with PMH of scleroderma w pulm fibrosisand gastroparesis, afib (s/p ablation), HTN, HPLD, andchronicbackpain +neuropathy (in PT, uses rollator), who presents to clinic today for 1 week of cough and URI symptoms. 1.Cough Acute w/ systemic symptoms or complicated injury Goal: resolution of sx, SpO2 > 90% Data:reviewed past hospitalization labs, discharge summary, Plan: ordered CXR; rx'd doxycycline for 7d, albuterol nebulizer; continue pulse ox at home. Patientadvised to RTC if sx persist or worsen despite tx. 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 I agree with the impression and plan as noted in the resident documentation above. She is nontoxic, afebrile,well-appearing with preservedoxygenation on room air. She does havea complicated pulmonary history and upon examshe has a mixture of inspiratory coarseness,expiratory wheezing,andVelcro- likebreath sounds in the bases consistent withher pulmonary fibrosis. Given her course of symptoms,I agree withdoxycyclineandresumption of her nebulized albuterol. If she were to further worsen, would then addoral prednisone; this plan was discussed withthe patient, and carefully detailedsigns and symptoms for which tocall the officeor go to the emergency department. 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 Grew up in [place], Moving from [place], [place]. 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 Tobacco - No Risk Family History Blood [...] pneumococcal 23-valent vaccine 12/31/2020 Recorded Comments : [facility] influenza virus vaccine, inactivated 11/13/2020 Recorded [...] Recommendations Health Maintenance Pending(in the next year) Due Adult Influenza Vaccine due08/28/23and every 1year Adult Social Determinants of Health Screening due09/22/23Unknown Frequency Falls Plan of Care due09/22/23Unknown Frequency Medicare Annual Wellness Visit due09/22/23and every 1year Shingles Vaccine due09/22/23One-time only Satisfied(in the past 1 year) Satisfied Body Mass Index on09/22/23.Satisfied by SHAZIA Keen Kyla Breast Cancer Screening on08/11/23.Satisfied by MD Bryn, Marcia Electronic Signature on File Electronically Reviewed/Signed by: Charlie Carrera MD Author Signature Dt/Tm:09/22/2023 03:29 PM Resident Department of Family Medicine Electronically Reviewed/Signed by: DO Carolin Jarvis Signature Dt/Tm: 09/23/2023 02:00PM Department of Family Medicine AG Patient Care team information Care Team Personnel Name: NEELIMA Solis, Shelia Garcia Position: Physician Asst Exmpt - Family Med Member Role: Lifetime Relationship Address: [address] [place] [address] [place] Name: GONZALO Lee Melvin J Position: Nurse Pract - Card Electrophys Member Role: Lifetime Relationship Address: [address] [place] [address] [place] Name: GONZALO Malone Stacey L Position: Nurse Pract - Cardiology Member Role: Lifetime Relationship Address: [address] [place] [address] [place] [address] [place] Name: Romina Sanchez Alisha Position: Pharmacist Member Role: Pharmacy - Lifetime Name: GONZALO Briscoe Michelle C Position: Nurse Pract - Card Electrophys Member Role: Lifetime Relationship Address: [address] [place] [address] [place] [address] [place] Name: MD Clemente Madhavi Position: Physician - Family Med Member Role: Primary Care Provider Address: [address] [place] [address] [place] Name: Romina Frankel Brittani Position: Pharmacist Member Role: Pharmacy - Lifetime Name: GONZALO Vickers Bonnie D Position: Nurse Pract - Surgery MIS Member Role: Lifetime Relationship Address: [address] [place] [address] [place] Care Team Related Persons Name: TR LAMBERT Name: ALEXANDER AGUSTIN"
--- OUTSIDE RECORDS SUMMARY | 2023-11-14 15:41 | External Medical Summary | Continuity of Care Document ---
Author Name Unknown Organization [facility] [address] [facility] [address] [place] [id number] Care Team Providers Care Expeller Worker Name Role Phone Bryn Marcia Primary Care Physician [phone] Encounter [facility] [id number] Date(s): 10/03/23 - 10/03/23 [facility] [address] [facility] 207 [facility] [address] [facility], [facility] 207 [place] [address] [place] [phone] Encounter Diagnosis Pulmonary interstitial fibrosis(Discharge Diagnosis) - 10/03/23 Discharge Disposition: Home or Self Care Attending Physician: MD Luevano Joseph P Allergies, Adverse Reactions, Alerts Substance Criticality Severity Reaction Reaction Severity Status ibuprofen GI Pain Active metoclopramide Unable to assess criticality Severe elevated LFTs Active medtronidazole containing compounds stomach upset Active Lyrica anxiety Active naproxen GI Pain Active gold sodium thiomalate unknown Active Bextra Swelling Active Zocor passed out lightheaded Active Celebrex Confusion GI Upset Active Percocet 7.5/325 GI Pain Act evangelina Assessment and Plan Extracted from: Title:FCM: F/u FCM Author:DO Ruvalcaba Amanda D ate:10/03/23 1.Pulmonary interstitial f ibrosis Chronic condition not at goal/exacerbated/progressive/side effects of treatment Goal: Data:_Last OVN,CT chestper [place]04/2022, CXR09/21 Plan: Pt appears to be subjectively and objectively improving from recent infection with improvement in home O2 satsand improvement in diffuse crackles from last week. Continue prednisone taper. As apptthis week with Dr. Clemente 10/05 [address] Pulm10/23. CT 04/2022 notes right middle lobe indeterminate lung nodules and radiology recommended f/u scan in 1 year. As pt is already seeing nunu, I will defer ordering this to them for follow up. Immunizations Given and Recorded Vaccine Date Status [...] Comment: 2020-11-14: Historical information-source unspecified 4Result Comment: [facility] 5Result Comment: 2020-01-31: Historical [...] 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, Brand Medically Necessary, Pharmacy: [id number] Start Date: 04/06/23 Stop Date: 03/31/24 Status: Ordered albuterol 1.25 mg/3 mL (0.042%) inhalation solution Start: 09/22/23 2:48:00 PM EDT, 3 mL, NEB, qid, Disp# 25 each, Refills: 1, Pharmacy: [id number] Start Date: 09/22/23 [...] 1 CAPSULE BY MOUTHTHREE TIMES DAILY, Pharmacy: [id number] Start Date: 05/10/23 [...] Daily, Disp# 90 tab, Refills: 3, Pharmacy: [id number] Start Date: 10/22/22 Status: Ordered inhaler spacer Start: 12/14/21 3:53:00 PM EDT, See Instructions, Disp# 1 each, Use spacer whenever using inhaler, Pharmacy: [id number] Start Date: 12/14/21 [...] 1 TABLET BY MOUTH ONCE DAILY, Pharmacy: [id number] Start Date: 05/12/23 [...] Daily, Disp# 90 cap, Refills: 3, Pharmacy: [id number] Start Date: 05/10/23 [...] 1 tab (10mg) x 3 days, Pharmacy: [id number] Start Date: 09/28/23 Status: Ordered spironolactone 25 mg oral tablet Start: 03/28/23 9:56:00 AM EST, 1 tab, PO, Daily, Disp# 90 tab, Refills: 3, Pharmacy: [id number] Start Date: 03/28/23 [...] 1 TABLET BY MOUTH EVERY EVENING, Pharmacy: [id number] Start Date: 10/22/22 Status: Ordered Zofran 4 mg oral tablet Start: 05/10/23 1:21:00 PM EDT, 1 tab, PO, Daily, Disp# 90 tab, Refills: 3, PRN: as needed for nausea/vomiting, Pharmacy: [id number] Start Date: 05/10/23 Stop Date: 05/04/24 Status: Ordered ZyrTEC 10 mg oral tablet Start: 08/16/16 11:19:00 AM EDT, 1 tab, PO, Daily Start Date: 08/16/16 Status: Ordered Mental Status 10/03/23 Barriers to Learning one year Acuity of illness, Vision impairment, Other: wears eye glasses, and uses a walking cane Mandatory Health Literacy Documentation Yes Health Literacy Communication Barriers N ever Primary Language Tuvaluan Problem List Condition Confirmation Course Effective Dates [...] weight and uncontrolled DM 2sees pulmonary - [facility] 3PFT 04/04/17 4Was on Boniva - [id number] - Improved bone density and stopped med. After bowel surgery - BMD dropped - Started on reclast [id number]. 5Dr [place] - [facility] 6last biopsy - 2016 - normal Diagnosis Diagnosis Type Effective Dates Health Status Clinical Service Informant Pulmonary interstitial fibrosis Discharge Diagnosis 10/03/23 Non-Specified Procedures Procedure Date Related Diagnosis Body [...] outside mammograms dated 02/14/2018, 08/12/2017, 12/07/2016 from [facility] have become available comparison. Compared [...] oldest [Reference Range]: 1 Temperature [36.5-37.9 DegC] 36.5 DegC (10/03/23 10:08 AM) Heart Rate 79 bpm (10/03/23 10:08 AM) Respiratory Rate 18 br/min (10/03/23 10:08 AM) Blood Pressure 112/52mmHg (10/03/23 10:08 AM) Cuff Pulse Pressure 60 mmHg (10/03/23 10:08 AM) Social History Social History Type Response Smoking Status Never smoked cigaret calli Sex Female Sex Representation Female (finding) FCM Outpt Note * MD Luevano Joseph P: MODIFY MD Luevano Joseph P: MODIFY Event Display: FCM Outpt Note Authored Date: [id number] Chief Complaint F/u from last wk. Still somewhat productive cough. Feeling much better. History of Present Illness Pt is a 68 yo female who presents for #URI f/u, hx pulm fibrosis - pt has a hx of scleroderma with pulm fibrosis - initially seen for illness 08/22 and given 7 days doxycycline, albuterol nebs QID, - visit on 09/27 for continued symptoms, started on prednisone taper - last of the 30 mg dose of steroid today, goes to 20 mg dosing tomorrow - no fevers the last few days - productive cough has improved greatly, overall feels she has improved a lot - blood oxygen levels have been 93-95% at home, - Sees Dr. Clemente on - has appt with pulm10/24/2023 Review of Systems Constitutional: No fever, no chills, Cardiovascular:No chest pain, no palpitations, Gastrointestinal: No nausea, no vomiting, no diarrhea Physical Exam Vitals & Measurements T:36.5C HR:79(Monitored) RR:18 BP:112/52 SpO2:93% PHQ2 Data(Data Documented on:10/03/2023 10:07) Emotional health assessment NEGATIVE General:Alert and oriented, no acute distress, HEENT: Normocephalic, moist oral mucosa, Cardiovascular:Regular rate and rhythm, no murmur, Respiratory: RLL crackles heard, LLL breath sounds diminished, otherwise clear to auscultation without wheezing Integumentary:Warm, pink, dry, Assessment/Plan 1.Pulmonary interstitial fibrosis Chronic condition not at goal/exacerbated/progressive/side effects of treatment Goal: Data:_Last OVN,CT chestper [facility]04/2022, CXR09/21 Plan: Pt appears to be subjectively and objectively improving from recent infection with improvement in home O2 satsand improvement in diffuse crackles from last week. Continue prednisone taper. Asapptthis week with Dr. Clemente 10/05 and Pulm10/23. CT 04/2022 notes right middle lobe indeterminate lung nodules and radiology recommended f/u scanin 1 year. As pt is already seeing pulmsoon, I will defer ordering this to them for follow up. Attestation I discussed the patient in detail regarding symptoms and findings today. I agree with the resident's note andplan to treat pulmonary interstitial fibrosis flare with continuation of prednisone and patient is feeling better. 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 Grew up in [place], Moving from [place], [place]. 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 Tobacco - No Risk Family History Blood [...] pneumococcal 23-valent vaccine 12/31/2020 Recorded Comments : [facility] influenza virus vaccine, inactivated [...] Due Adult Social Determinants of Health Screening due10/03/23Unknown Frequency Falls Plan of Care due10/03/23Unknown Frequency Medicare Annual Wellness Visit due10/03/23and every 1year Shingles Vaccine due10/03/23One-time only Due In Future Body Mass Index not due until09/28/24and every 366day Satisfied(in the past 1 year) Satisfied Body Mass Index on09/22/23.Satisfied by SHAZIA Keen Kyla Breast Cancer Screening on08/11/23.Satisfied by MD Bryn, Marcia Electronic Signature on File Electronically Reviewed/Signed by: Camille Ruvalcaba DO Author Signature Dt/Tm:10/03/2023 10:34 AM Resident Department of Family Medicine Electronically Reviewed/Signed by: Tripp Luevano MD Cosigner Signature Dt/Tm: 10/03/2023 12:18PM Department of Family Medicine AB Patient Care team information Care Team Personnel Name: NEELIMA Solis Kimberly A Position: Physician Asst Exmpt - Family Med Member Role: Lifetime Relationship Address: [address] [place] [address] [place] Name: GONZALO Lee Melvin J Position: Nurse Pract - Card Electrophys Member Role: Lifetime Relationship Address: [address] [place] [address] [place] Name: GONZALO Malone Stacey L Position: Nurse Pract - Cardiology Member Role: Lifetime Relationship Address: [address] [place] [address] [place] Name: Romina Sanchez Alisha Position: Pharmacist Member Role: Pharmacy - Lifetime Name: GONZALO Briscoe Michelle C Position: Nurse Pract - Card Electrophys Member Role: Lifetime Relationship Address: [address] [place] [address] [place] Name: MD Clemente Madhavi Position: Physician - Family Med Member Role: Primary Care Provider Address: [address] [address] [place] Name: Romina Frankel Brittani Position: Pharmacist Member Role: Pharmacy - Lifetime Name: GONZALO Vickers Bonnie D Position: Nurse Pract - Surgery MIS Member Role: Lifetime Relationship Address: [address] [place] [id number] Care Team Related Persons Name: TR LAMBERT Name: NIKOLEALEXANDER"
[2023-11-14] MEDS: MAGNESIUM SULFATE / D5W 1 GM/100 ML BAG IV STA (16:18)
[2023-11-14 16:38] LABS: C Reactive Protein < 0.50 mg/dl (0-0.5); Iron 51 mcg/dl (35-150); Total Iron Binding Cap Calc 228 mcg/dl (250-450); Transferrin (FE) Percent Satur 22 % (15-50); Unsaturated Iron Binding Cap 177 mcg/dl (155-355)
[2023-11-14 16:58] LABS: Ferritin 17.1 ng/ml (8-388)
[2023-11-14 17:02] LABS: Folate (Folic Acid),Ser orPlas > 22.30 ng/ml (>5.38)
[2023-11-14 17:03] LABS: Vitamin B12 773 pg/ml (180-914)
--- NOTE | 2023-11-14 19:20 | Electrocardiogram Report ---
Test Reason : Blood Pressure : */* mmHG Vent. Rate : 76 BPM Atrial Rate : 76 BPM P-R Int : 160 ms QRS Dur : 84 ms QT Int : 388 ms P-R-T Axes : 99 48 18 degrees QTcB Int : 436 ms Normal sinus rhythm Low voltage QRS Cannot rule out Anterior infarct (cited on or before 23-Feb-2019) Abnormal ECG When compared with ECG of 28-May-2022 11:19, Premature atrial complexes are no longer Present Vent. rate has decreased by 37 bpm Questionable change in initial forces of Anterior leads Inverted T waves have replaced nonspecific T wave abnormality in Inferior leads Confirmed by Power Bethea ([id number]) on 11/14/2023 7:19:50 PM Referred By: Confirmed By: Power Bethea
[2023-11-14] MEDS ORDERED: LACTASE 3000 UNIT TAB PO PRN (19:35)
[2023-11-14] MEDS: MAGNESIUM SULFATE / D5W 1 GM/100 ML BAG IV SCH (19:45)
[2023-11-14] MEDS ORDERED: Patient's HEIGHT &/or WEIGHT Needed SCH (20:00)
[2023-11-14] MEDS: ALBUTEROL 0.5% NEB SOLN 2.5 MG/0.5 ML VIAL NEB SCH (20:06)
[2023-11-14] MEDS: METOPROLOL SUCC 50MG EXT REL TAB PO SCH (20:56)
[2023-11-14] MEDS: HYDROXYCHLOROQUINE SULFATE 200 MG TAB PO SCH (20:56)
[2023-11-14] MEDS ORDERED: prednisoLONE acetate 1% OP SUSP 5 ML BTL OPL SCH (21:00)
[2023-11-14] MEDS: MYCOPHENOLATE MOFETIL 250 MG CAP PO SCH (21:04)
[2023-11-14] MEDS: prednisoLONE acetate 1% OP SUSP 5 ML BTL OPB SCH (21:06)
[2023-11-14] MEDS: RIVAROXABAN 20 MG TAB PO SCH (21:39)
[2023-11-14] MEDS: prednisoLONE acetate 1% OP SUSP 5 ML BTL OPL SCH (21:40)
[2023-11-15] MEDS: SIMETHICONE 80 MG CHEW PO PRN (04:33)
[2023-11-15 05:11] LABS: Appearance Urine Clear (Clear); Bacteria Urine Automated None Seen (None Seen); Bilirubin Urine Negative (Negative); Blood Urine Negative (Negative); Cast Urine Automated 0-2 /lpf (0-2); Color Urine Dark Yellow; Epithelial Cell Urine Auto 0-2 /hpf (0-2); Glucose Urine UA Negative (Negative); Ketones Urine Negative (Negative); Leukocyte Esterase Urine Trace (Negative); Nitrite Urine Negative (Negative); Protein Urine Negative (Negative); RBC Urine Automated 0-2 /hpf (0-2); Urobilinogen Urine Negative (Negative); WBC Urine Automated 0-5 /hpf (0-5); pH Urine 5.5 (4.5-7.5)
[2023-11-15 06:18] LABS: Basophils # (auto) 0.04 K/uL (0.00-0.20); Basophils % (auto) 0.5 %; Eosinophils # (auto) 0.02 K/uL (0.00-0.50); Eosinophils % (auto) 0.2 %; Hematocrit (blood only) 32.3 % (37.0-47.0); Hemoglobin 10.7 g/dl (12.0-16.0); Immature Granulocytes # (auto) 0.03 K/uL (0.01-0.20); Immature Granulocytes % (auto) 0.3 %; Lymphocytes # (auto) 1.59 K/uL (1.20-3.40); Lymphocytes % (auto) 18.2 %; Mean Corpuscular Hemoglobin 33.5 pg (25.0-34.0); Mean Corpuscular Hgb Conc 33.1 g/dL (32.0-36.0); Mean Corpuscular Volume 101.3 fL (80.0-100.0); Mean Platelet Volume 10.8 fL (9.4-12.4); Monocytes # (auto) 0.65 K/uL (0.11-0.59); Monocytes % (auto) 7.5 %; Neutrophils # (auto) 6.39 K/uL (1.40-6.50); Neutrophils % (auto) 73.3 %; Platelet Count 244 K/uL (130-400); RDW Coefficient of Variation 13.5 % (11.5-14.5); RDW Standard Deviation 49.9 fL (36.4-46.3); Red Blood Count 3.19 M/uL (4.20-5.40); White Blood Count 8.72 K/ul (4.8-10.8)
[2023-11-15 06:26] LABS: BUN Creatinine Ratio 52.2 (10-20); Calcium 7.5 mg/dl (8.6-10.3); Creatinine Clr Calc Pharmacy 246.4 ml/min; Est GFR (African American) 147.8 ml/min; Est GFR (Non-African American) 127.5 ml/min; Magnesium 1.9 mg/dl (1.7-2.4); Potassium 3.2 mmol/L (3.5-5.1)
[2023-11-15 06:35] LABS: INR 1.7 (0.9-1.1); Prothrombin Time 17.6 Seconds (9.0-12.0)
--- NOTE | 2023-11-15 07:19 | Hospitalist Progress Note ---
Date of Service November 15, 2023 Assessment & Plan (1) Macrocytic anemia: (2) Generalized weakness: (3) Anemia: (4) Hypomagnesemia: (5) MONTES (dyspnea on exertion): (6) Hypomagnesemia: (7) Decubitus skin ulcer: (8) Nausea: (9) Weakness: (10) Pressure ulcer, buttock: (11) Decreased appetite: Plan 68 y/o female with PMH A-fib on Xarelto, pulmonary fibrosis, scleroderma, chronic ulcers, protein malnutrition due to GI effect of scleroderma admitted due for generalized weakness Generalized weakness: Progressive general weakness Patient has multiple possible pathologies for her weakness at this time including recently increased MCV suggesting macrocytic anemia, possible poor nutritional absorption due to her chronic scleroderma, deconditioning, and chronic connective tissue disease - Hypomagnesia replaced No signs of infection at this time, platelets and LFTs are unremarkable, low suspicion for tickborne illness Anemia work up wnl - Low ionized calcium - ESR/CRP negative PT/OT consults with fall/aspiration precautions AM CBC, BMP, mag, PT/INR MONTES (dyspnea on exertion): Has been experiencing progressive dyspnea on exertion and orthopnea over the past 2 to 3 months Has a known history of pulmonary fibrosis and scleroderma and reportedly had bronchitis shortly before symptoms progressed High-sensitivity troponin and chest x-ray are within normal limits incentive spirometry, flutter therapy, as needed albuterol nebs Elevated INR: -Vitamin K in am - Vitamin K replaced today Hypokalemia/ Hypomagnesemia: Follow BMP, Mag, Phosphorus Replaced Continue to monitor on telemetry for now Macrocytic anemia: Follow workup per generalized weakness - vitamin b 12: 773 - Folate: 22.30 Atrial fibrillation: Currently in normal sinus rhythm Continue metoprolol and Xarelto Scleroderma: Continue mycophenolate and hydroxychloroquine Hypertension: Currently stable Will continue hydrochlorothiazide and spironolactone Can continue Lasix for now but monitor ongoing electrolyte abnormalities Plan: Home Xarelto for DVT prophylaxis Diet: Full code Admission and Anticipated Discharge Date Admission Date: November 14, 2023 Supervising Physician Co-Signing Physician Notes Attending Physician Supervision Note: I independently interviewed and examined the patient and verified the rizzo history and physical, reviewed labs and image studies and agree with findings and care plan noted above. History of A-fib on Xarelto, pulmonary fibrosis, scleroderma, chronic ulcers, protein malnutrition due to GI effect of scleroderma Progressive weakness and Dyspnea - Luke more weak after having been diuresed recently as outpatient. HypoNa/HypoK - partly chronic and with recent diuresis. On hctz 12.5mgs. On hold. replete electrolytes. Protein malnutrition - Hog Grader consult. Elevated INR - in setting of restricted nutrition. vitamin K supplementation. Swallowing dysfunction - Consider GI consult - h/o esophageal strictures. Pressure ulcer of left buttock, stage 2, POA - wound care PT/OT SCD Subjective Michelle was seen this morning refers feeling improved. Her SOB had improved as well as her leg edema Refers progressive SOB in the last couple of months Denied any Chest pain, plapitations, abdominal pain, nausea or any other ysmtoms Review of Systems Review of Systems: as per HPI Physical Exam Constitutional: WD/WN, vitals as above Respiratory: normal respiratory effort; no respiratory distress and no labored breathing Auscultation: + wheezes (Bases) Cardiovascular: RRR, no murmur, no edema Gastrointestinal (Abdomen): normal bowel sounds, soft, nontender, no hepatosplenomegaly Results & Data Results & Data Vital Signs (Past 12 Hours) Vital Signs Temp Pulse Pulse Resp BP BP Pulse Ox 11/15/23 06:48 73 11/15/23 04:00 36.5 C 75 18 106/70 93 11/15/23 01:16 78 16 98 11/15/23 00:00 36.5 C 77 18 109/65 93 11/14/23 21:42 83 11/14/23 20:41 36.8 C 91 H 18 126/84 94 11/14/23 19:35 90 11/14/23 19:35 11/14/23 19:35 36.8 C 91 H 18 126/84 94 O2 Del Method 11/15/23 06:48 11/15/23 04:00 Room Air 11/15/23 01:16 Room Air 11/15/23 00:00 Room Air 11/14/23 21:42 11/14/23 20:41 Room Air 11/14/23 19:35 11/14/23 19:35 Room Air 11/14/23 19:35 Room Air Resident Activity Tracking Resident Involvement: Resident Care Provided Care Provided: Adult Hospital Medicine (3) Anemia Anemia type: unspecified type Qualified Code(s): D64.9 - Anemia, unspecified
[2023-11-15] MEDS: POTASSIUM CHLORIDE CRTAB 20 MEQ TABCR PO STA (07:37)
[2023-11-15] MEDS: SPIRONOLACTONE 25 MG TAB PO SCH (07:38)
[2023-11-15] MEDS: CHOLECALCIFEROL 125 MCG (5,000 UNITS) TAB PO SCH (07:38)
[2023-11-15] MEDS: CALCIUM CARBONATE 1250MG TAB PO SCH (07:38)
[2023-11-15] MEDS: CETIRIZINE HCL 10 MG TABLET PO SCH (07:39)
[2023-11-15] MEDS: CYANOCOBALAMIN (B-12) 500 MCG TABLET PO SCH (07:39)
[2023-11-15] MEDS: FLUTICASONE/VILANTEROL 200/25MCG 14 PUFFS/INHALER INH SCH (07:39)
[2023-11-15] MEDS: PANTOprazole 40 MG TAB PO SCH (07:39)
[2023-11-15] MEDS ORDERED: prednisoLONE acetate 1% OP SUSP 5 ML BTL OPR SCH (09:00)
--- NOTE | 2023-11-15 09:58 | XCELERA ---
[id number]
[2023-11-15] MEDS: PHYTONADIONE 5 MG TAB PO STA (11:08)
[2023-11-15] MEDS: ACETAMINOPHEN 325 MG TAB PO PRN (20:22)
--- NOTE | 2023-11-16 06:47 | Hospitalist Progress Note ---
Date of Service November 16, 2023 Assessment & Plan (1) Macrocytic anemia: (2) Generalized weakness: (3) Anemia: (4) Hypomagnesemia: (5) MONTES (dyspnea on exertion): (6) Decubitus skin ulcer: (7) Nausea: (8) Weakness: (9) Pressure ulcer, buttock: (10) Decreased appetite: Plan 68 y/o female with PMH A-fib on Xarelto, pulmonary fibrosis, scleroderma, chronic ulcers, protein malnutrition due to GI effect of scleroderma admitted due for generalized weakness Generalized weakness: Progressive general weakness Patient has multiple possible pathologies for her weakness at this time including recently increased MCV suggesting macrocytic anemia, possible poor nutritional absorption due to her chronic scleroderma, deconditioning, and chronic connective tissue disease No signs of infection at this time, platelets and LFTs are unremarkable, low suspicion for tickborne illness Anemia work up wnl - Low ionized calcium - ESR/CRP negative PT/OT consults - Short term rehab recommended. AM CBC, BMP, mag, PT/INR Case management following MONTES (dyspnea on exertion): Has been experiencing progressive dyspnea on exertion and orthopnea over the past 2 to 3 months Has a known history of pulmonary fibrosis and scleroderma and reportedly had bronchitis shortly before symptoms progressed incentive spirometry, flutter therapy, as needed albuterol nebs Elevated INR: -Vitamin K in am - Vitamin K replaced today Hypokalemia/ Hypomagnesemia: Follow BMP, Mag, Phosphorus AM Hold Hctz Replace as needed Continue to monitor on telemetry for now Protein malnutrition: - Dietitian consulted - Probiotic added - Ensure Macrocytic anemia: Follow workup per generalized weakness - vitamin b 12: 773 - Folate: 22.30 Atrial fibrillation: Currently in normal sinus rhythm Continue metoprolol and Xarelto Scleroderma: Continue mycophenolate and hydroxychloroquine Hypertension: Currently stable holding hydrochlorothiazide - Continue spironolactone Can continue Lasix for now but monitor ongoing electrolyte abnormalities Plan: Home Xarelto for DVT prophylaxis Diet: Full code Admission and Anticipated Discharge Date Admission Date: November 14, 2023 Supervising Physician Co-Signing Physician Notes Attending Physician Supervision Note: I independently interviewed and examined the patient and verified the rizzo history and physical, reviewed labs and image studies and agree with findings and care plan noted above. Medical history -- History of A-fib on Xarelto, pulmonary fibrosis, scleroderma, chronic ulcers, protein malnutrition due to GI effect of scleroderma. Here with weakness and dyspnea. Progressive weakness and Dyspnea - Juniata more weak after having been diuresed recently as outpatient. PT/OT recommends short term rehab. HypoNa/HypoK - resolved with repletion and holding hctz. BP readings low - will d/c hctz. On daily lasix now. Protein malnutrition - Park Manager consult. Boost added with each meal. Elevated INR - improving with vitamin K supplementation. Swallowing dysfunction - Tolerating boost supplement. Outpatient GI f/u - h/o esophageal strictures. Pressure ulcer of left buttock, stage 2, POA - wound care SCD Subjective Michelle was seen this morning. Refers edema on her leg has improved as well as dyspnea Review of Systems Review of Systems: as her HPI Physical Exam Constitutional: WD/WN, vitals as above Respiratory: normal respiratory effort; no respiratory distress and no labored breathing Auscultation: + wheezes (Bases) Cardiovascular: RRR, no murmur, no edema Gastrointestinal (Abdomen): normal bowel sounds, soft, nontender, no hepatosplenomegaly Results & Data Results & Data Vital Signs (Past 12 Hours) Vital Signs Temp Pulse Pulse Resp BP BP Pulse Ox 11/16/23 03:24 36.7 C 85 18 125/63 93 11/16/23 01:37 76 15 98 11/16/23 01:06 77 11/15/23 23:30 36.7 C 80 18 109/70 93 11/15/23 20:14 89 16 99 11/15/23 19:00 36.8 C 91 H 18 124/82 96 O2 Del Method 11/16/23 03:24 Room Air 11/16/23 01:37 Room Air 11/16/23 01:06 11/15/23 23:30 Room Air 11/15/23 20:14 Room Air 11/15/23 19:00 Room Air Resident Activity Tracking Resident Involvement: Resident Care Provided Care Provided: Adult Hospital Medicine (3) Anemia Anemia type: unspecified type Qualified Code(s): D64.9 - Anemia, unspecified
[2023-11-16 10:00] LABS: Potassium 4.3 mmol/L (3.5-5.1)
[2023-11-16 10:01] LABS: BUN Creatinine Ratio 40.7 (10-20); Calcium 7.9 mg/dl (8.6-10.3); Creatinine Clr Calc Pharmacy 209.1 ml/min; Est GFR (African American) 140.2 ml/min; Est GFR (Non-African American) 120.9 ml/min; Magnesium 1.9 mg/dl (1.7-2.4)
[2023-11-16 10:15] LABS: INR 1.4 (0.9-1.1); Prothrombin Time 14.6 Seconds (9.0-12.0)
[2023-11-16 11:14] LABS: Basophils # (auto) 0.05 K/uL (0.00-0.20); Basophils % (auto) 0.6 %; Eosinophils # (auto) 0.03 K/uL (0.00-0.50); Eosinophils % (auto) 0.4 %; Hematocrit (blood only) 33.3 % (37.0-47.0); Hemoglobin 10.5 g/dl (12.0-16.0); Immature Granulocytes # (auto) 0.02 K/uL (0.01-0.20); Immature Granulocytes % (auto) 0.2 %; Lymphocytes # (auto) 1.46 K/uL (1.20-3.40); Lymphocytes % (auto) 18.1 %; Mean Corpuscular Hemoglobin 32.9 pg (25.0-34.0); Mean Corpuscular Hgb Conc 31.5 g/dL (32.0-36.0); Mean Corpuscular Volume 104.4 fL (80.0-100.0); Mean Platelet Volume 10.2 fL (9.4-12.4); Monocytes # (auto) 0.84 K/uL (0.11-0.59); Monocytes % (auto) 10.4 %; Neutrophils # (auto) 5.68 K/uL (1.40-6.50); Neutrophils % (auto) 70.3 %; Platelet Count 218 K/uL (130-400); RDW Coefficient of Variation 13.4 % (11.5-14.5); RDW Standard Deviation 51.8 fL (36.4-46.3); Red Blood Count 3.19 M/uL (4.20-5.40); White Blood Count 8.08 K/ul (4.8-10.8)
[2023-11-16] MEDS: ADVANCED PROBIOTIC 625 MG CAPSULE PO SCH (11:42)
[2023-11-16] MEDS: PANCREAZE (LIPASE 10,500U) CAP PO SCH (11:42)
[2023-11-16] MEDS: PHYTONADIONE 5 MG TAB PO STA (12:33)
[2023-11-17 07:11] VITALS: RESP 16
--- NOTE | 2023-11-17 07:40 | Hospitalist Progress Note ---
Date of Service November 17, 2023 Assessment & Plan (1) Macrocytic anemia: (2) Generalized weakness: (3) Anemia: (4) Hypomagnesemia: (5) MONTES (dyspnea on exertion): (6) Decubitus skin ulcer: (7) Nausea: (8) Weakness: (9) Pressure ulcer, buttock: (10) Decreased appetite: Plan 68 y/o female with PMH A-fib on Xarelto, pulmonary fibrosis, scleroderma, chronic ulcers, protein malnutrition due to GI effect of scleroderma admitted due for generalized weakness Generalized weakness: Progressive general weakness Multiple comorbidities: macrocytic anemia, possible poor nutritional absorption due to her chronic scleroderma, deconditioning, and chronic connective tissue disease No signs of infection at this time, platelets and LFTs are unremarkable, low suspicion for tickborne illness Anemia work up wnl - Low ionized calcium - ESR/CRP negative PT/OT consults - Short term rehab recommended. AM CBC, BMP, mag, PT/INR Case management following MONTES (dyspnea on exertion): Has been experiencing progressive dyspnea on exertion and orthopnea over the past 2 to 3 months Has a known history of pulmonary fibrosis and scleroderma and reportedly had bronchitis shortly before symptoms progressed incentive spirometry, flutter therapy, as needed albuterol nebs Elevated INR: -Vitamin K in am - Vitamin K replaced today Hypokalemia/ Hypomagnesemia - resolved Follow BMP, Mag, Phosphorus AM Hold Hctz Replace as needed Protein malnutrition: - Dietitian consulted - Probiotic added - Creon added - Ensure Macrocytic anemia: - Vitamin b 12: 773 - Folate: 22.30 - stable, follow up CBC Atrial fibrillation: Currently in normal sinus rhythm Continue metoprolol and Xarelto Scleroderma: Continue mycophenolate and hydroxychloroquine Hypertension: Currently stable D/c hydrochlorothiazide - Continue spironolactone Can continue Lasix for now but monitor ongoing electrolyte abnormalities Plan: Home Xarelto for DVT prophylaxis Diet: Full code Admission and Anticipated Discharge Date Admission Date: November 14, 2023 Results & Data Results & Data Vital Signs (Past 12 Hours) Vital Signs Temp Pulse Resp BP Pulse Ox O2 Del Method 11/17/23 07:28 Room Air 11/17/23 07:10 83 16 93 Room Air 11/17/23 00:32 80 18 92 Room Air 11/16/23 23:59 36.8 C 82 18 104/69 93 Room Air 11/16/23 22:41 Room Air 11/16/23 19:52 93 H 18 97 Room Air (3) Anemia Anemia type: unspecified type Qualified Code(s): D64.9 - Anemia, unspecified
[2023-11-17 07:54] VITALS: TEMP 97.9; O2SAT 98
[2023-11-17 07:57] LABS: Basophils # (auto) 0.03 K/uL (0.00-0.20); Basophils % (auto) 0.4 %; Eosinophils # (auto) 0.04 K/uL (0.00-0.50); Eosinophils % (auto) 0.5 %; Hematocrit (blood only) 34.3 % (37.0-47.0); Hemoglobin 10.9 g/dl (12.0-16.0); Immature Granulocytes # (auto) 0.03 K/uL (0.01-0.20); Immature Granulocytes % (auto) 0.4 %; Lymphocytes # (auto) 1.65 K/uL (1.20-3.40); Lymphocytes % (auto) 20.1 %; Mean Corpuscular Hemoglobin 33.1 pg (25.0-34.0); Mean Corpuscular Hgb Conc 31.8 g/dL (32.0-36.0); Mean Corpuscular Volume 104.3 fL (80.0-100.0); Mean Platelet Volume 10.3 fL (9.4-12.4); Monocytes # (auto) 0.66 K/uL (0.11-0.59); Neutrophils # (auto) 5.79 K/uL (1.40-6.50); Neutrophils % (auto) 70.6 %; Platelet Count 170 K/uL (130-400); RDW Coefficient of Variation 13.6 % (11.5-14.5); RDW Standard Deviation 51.5 fL (36.4-46.3); Red Blood Count 3.29 M/uL (4.20-5.40)
[2023-11-17 08:21] LABS: INR 1.5 (0.9-1.1); Prothrombin Time 15.4 Seconds (9.0-12.0)
[2023-11-17 08:36] LABS: Calcium 7.8 mg/dl (8.6-10.3); Magnesium 1.8 mg/dl (1.7-2.4); Potassium 4.5 mmol/L (3.5-5.1)
[2023-11-17 08:41] LABS: Creatinine Clr Calc Pharmacy 199.9 ml/min; Est GFR (African American) 138.5 ml/min; Est GFR (Non-African American) 119.5 ml/min
[2023-11-17 13:44] VITALS: BP 103/66; PULSE 86
--- NOTE | 2023-11-17 13:53 | Discharge Summary ---
Date of Service November 17, 2023 Admission HPI Per Admitting Provider Michelle is a 68-year-old female with a past medical history significant for atrial fibrillation (on Xarelto), pulmonary fibrosis, scleroderma, hypertension, anemia, chronic sacral ulcer who presented to the ED reportedly from her [employer]'s office due to symptoms of progressive weakness and shortness of breath. She remained stable in the ED. Labs were significant for an MCV of 103, MCHC of 31, stable hemoglobin of 10.7, calcium of 7.7, mag of 1.6, with SARS-CoV-2/influenza/RSV screens negative. Chest x-ray was read as negative for acute changes. Prior to admission the patient was given 1 g IV mag sulfate. Patient was sitting on the side of the bed in no acute distress at the time of exam with her sister sitting bedside, history is obtained from both. The patient explains that she was seen for follow-up at the [facility] cardiology clinic due to her progressive generalized weakness, dyspnea on exertion, orthopnea. She and her sister report that the patient has been having ongoing outpatient workup for the symptoms which has reportedly been unremarkable. She explains that she has been given vitamin B12 injections recently and was reportedly started on iron supplementation without improvement of her symptoms. She explains that she cannot lie flat at night due to increased orthopnea since having a case of bronchitis in August of this past year which she completed a course of prednisone and albuterol. States that she has had progressive generalized weakness in the bilateral lower extremities and denies increased proximal muscle weakness compared to distal. States that she has been having ongoing lower extremity swelling and that she has been started increased on doses of her home diuretics without much improvement. States that while she was in the clinic today and ambulating she was reportedly tachycardic. When asked, she states that she eats 2000 gilmar a day and has been trying to eat lots of protein along with nutritional shakes without improvement in her symptoms. Her diet is limited due to her history of scleroderma with history of dysphagia and gastroparesis. No recent fever, chills, chest pain, increased cough compared to chronic, hemoptysis, abdominal pain, nausea/vomiting, dysuria/hematuria, diarrhea, rash, insect bites, or recent trauma. Her weakness is gone to the point where she needs significant help from family to stand otherwise she is concerned she will fall. They confirm that she is a full code she would want her sister to make medical decisions for her if she cannot make them herself. Please refer to Dr. Mcfarlane's attestation for any changes to treatment plan Principal Diagnosis General weakness Deconditioning Protein malnutrition Discharge Exam Constitutional WD/WN, vitals as above Respiratory normal respiratory effort; no respiratory distress and no labored breathing Auscultation: + wheezes (Bases) Cardiovascular RRR, no murmur, no edema Gastrointestinal (Abdomen) normal bowel sounds, soft, nontender, no hepatosplenomegaly Discharge Data Allergies Allergy/AdvReac Type Severity Reaction Status Date / Time simvastatin [From Zocor] Allergy Intermediate "made me Verified 11/04/23 11:35 pass out" ibuprofen Allergy Mild stomach Verified 11/04/23 11:35 pain naproxen [From Aleve] Allergy Mild STOMACH Verified 11/04/23 11:35 PAIN oxycodone [From Percocet] Allergy Mild stomach Verified 11/04/23 11:35 pain oyster extract AdvReac Gastrointestinal Verified 11/04/23 11:35 Upset scallops AdvReac Gastrointestinal Verified 11/04/23 11:35 Upset Consultations 11/14/23 15:39 ED Decision to Admit Stat Hospital Course (1) Macrocytic anemia: (2) Generalized weakness: (3) Anemia: (4) Hypomagnesemia: (5) MONTES (dyspnea on exertion): (6) Decubitus skin ulcer: (7) Nausea: (8) Weakness: (9) Pressure ulcer, buttock: (10) Decreased appetite: Plan 68 y/o female with PMH A-fib on Xarelto, pulmonary fibrosis, scleroderma, chronic ulcers, protein malnutrition due to GI effect of scleroderma admitted due for generalized weakness Generalized weakness: Progressive general weakness Multiple comorbidities: macrocytic anemia, poor nutritional absorption due to her chronic scleroderma, deconditioning, and chronic connective tissue disease No signs of infection at this time, platelets and LFTs are unremarkable, low suspicion for tickborne illness PT/OT consults - Short term rehab recommended. MONTES (dyspnea on exertion) - resolved Has been experiencing progressive dyspnea on exertion and orthopnea over the past 2 to 3 months, started after initiating diuretics Has a known history of pulmonary fibrosis and scleroderma and reportedly had bronchitis shortly before symptoms progressed Continue incentive spirometry, flutter therapy, as needed albuterol nebs Protein malnutrition: - Dietitian consulted, aprec recommendations - Continue Probiotic, Creon, multivitamin - Ensure/ Boosts with meals - Recommended re check of Calcium/ Vitamin D outpatient Macrocytic anemia: - Vitamin b 12: 773 - Folate: 22.30 - stable, follow up CBC in a week Hypokalemia/ Hypomagnesemia - resolved Follow BMP, Mag, Phosphorus AM in one week Lower extremities Edema: Improved Daily weights Lasix as needed with weight changes: Take 20 mg daily with a weight increased of 2 lbs. Atrial fibrillation: Currently in normal sinus rhythm Continue metoprolol and Xarelto Scleroderma: Continue mycophenolate and hydroxychloroquine - May consider GI f/u for swallowing dysfunction Hypertension: Currently stable D/c hydrochlorothiazide - Continue spironolactone Pressure ulcer: -stage 2 -continue wound care Plan: Home Xarelto for DVT prophylaxis Diet: HH Full code Total Time Total Time Spent Total Time Spent (In Minutes): see attending attestation Discharge Plan Discharge Items Patient Disposition: Transfer Inpatient Rehab Fac Reason For Visit: GENERALIZED WEAKNESS, SOB, ORTHOPNEA Discharge Diagnosis: Generalized weakness Activity: Per Instructions section Non-emergency contact: Primary Care Provider Call non-emergency contact if: you have any medication questions and your symptoms worsen Follow-up/Referrals: Marcia Clemente MD [Primary Care Provider] - Diet: Heart Healthy Addtl Attending Provider Instructions: 68 y/o female with PMH A-fib on Xarelto, pulmonary fibrosis, scleroderma, chronic ulcers, protein malnutrition due to GI effect of scleroderma admitted due for generalized weakness Generalized weakness: Progressive general weakness Multiple comorbidities: macrocytic anemia, poor nutritional absorption due to her chronic scleroderma, deconditioning, and chronic connective tissue disease No signs of infection at this time, platelets and LFTs are unremarkable, low suspicion for tickborne illness - Low ionized calcium PT/OT consults - Short term rehab recommended. MONTES (dyspnea on exertion) - resolved Has been experiencing progressive dyspnea on exertion and orthopnea over the past 2 to 3 months, started after initiating diuretics Has a known history of pulmonary fibrosis and scleroderma and reportedly had bronchitis shortly before symptoms progressed Continue incentive spirometry, flutter therapy, as needed albuterol nebs Protein malnutrition: - Dietitian consulted, aprec recommendations - Continue Probiotic, Creon - Ensure/ Boosts with meals Macrocytic anemia: - Vitamin b 12: 773 - Folate: 22.30 - stable, follow up CBC in a week Hypokalemia/ Hypomagnesemia - resolved Follow BMP, Mag, Phosphorus AM in one week Lower extremities Edema: Improved Daily weights Lasix as needed with weight changes: Take 20 mg daily with a weight increased of 2 lbs. Atrial fibrillation: Currently in normal sinus rhythm Continue metoprolol and Xarelto Scleroderma: Continue mycophenolate and hydroxychloroquine - May consider GI f/u for swallowing dysfunction Hypertension: Currently stable D/c hydrochlorothiazide - Continue spironolactone Pressure ulcer: stage 2 continue wound care Plan: Home Xarelto for DVT prophylaxis Diet: HH Full code Pending Studies at Discharge: No Stand-Alone Forms: My [facility] Skilled Items Patient informed of condition?: Yes DNR: No Discharge Level of Care: Skilled Communicable Disease: No Discharge Prognosis: Stable Lines: None Urinary Catheter: No Medications and DC Order Prescriptions: Continued cholecalciferol (vitamin D3) [Vitamin D3] 25 mcg (1,000 unit) capsule 10,000 unit PO QAM Rx Instructions: 10,000 albuterol sulfate 1.25 mg/3 mL solution for nebulization 2.5 mg inhalation QID lactase 3,000 unit tablet 3,000 units PO QID PRN (Reason: Abdominal Discomfort) multivitamin Tablet 1 tab PO QAM triamcinolone acetonide [Nasacort] 55 mcg aerosol,spray 2 sprays INTNAS DAILY Qty: 33.8 0RF Rx Instructions: administer into each nostril tramadol-acetaminophen 37.5-325 mg tablet 1 tab PO QID PRN (Reason: pain) Qty: 30 0RF spironolactone 25 mg tablet 25 mg PO QAM albuterol sulfate [ProAir HFA] 90 mcg/actuation HFA aerosol inhaler 1 puff INH Q6H PRN (Reason: shortness of breath or wheezing) Qty: 8 0RF fluticasone propion-salmeterol [Advair Diskus] 250-50 mcg/dose blister with device 1 inh INHALATION BID Qty: 180 3RF Xarelto 20 mg Tablet 20 mg PO QPM hydroxychloroquine 200 mg tablet 400 mg PO QPM metoprolol succinate 100 mg tablet extended release 24 hr 100 mg PO QPM omeprazole 40 mg capsule,delayed release(DR/EC) 40 mg PO QAM calcium carbonate 500 mg calcium (1,250 mg) tablet 500 mg PO QAM Saccharomyces boulardii [Digest Probiotic (S.boulardii)] 250 mg capsule 250 mg PO QAM Rx Instructions: swallow whole Zyrtec 10 mg capsule 10 mg PO QAM Ocuvite Eye Plus Multi 200-15-150 mcg tablet 1 tab PO QPM Rx Instructions: administer with a meal and a large glass of water Beano 450 unit Tablet,Disintegrating 450 unit PO BIDWMEAL PRN (Reason: .abd bloating) Creon 6,000-19,000 -30,000 unit capsule,delayed release(DR/EC) 1 cap PO TID Rx Instructions: do not exceed 10,000 unit/kg lipase per 24 hrs mycophenolate mofetil 500 mg tablet 500 mg PO BID prednisolone acetate 1 % drops,suspension 1 drp OPL UD Rx Instructions: 1 drop both eyes qam, 1 drop left in pm cyanocobalamin (vitamin B-12) 500 mcg Tablet 500 mcg PO DAILY simethicone 80 mg Tablet,Chewable 80 mg PO DIRECTED PRN (Reason: .gas/bloating) ondansetron HCl 4 mg Tablet 4 mg PO Q6H PRN (Reason: Nausea And Vomiting) magnesium oxide 400 mg magnesium tablet 400 mg PO DAILY furosemide 20 mg tablet 20 mg PO DAILY iron 1 tab PO QAM Rx Instructions: otc krill oil 1 cap PO DAILY Discontinued hydrochlorothiazide 25 mg tablet 12.5 mg PO QAM Discharge Orders: Discharge Order (Routine); Ordered 11/17/23 Ordered By: Nancy Mayo Admission Data Admit Date/Time: 11/14/23 16:01 Attending Provider: Marcia Clemente Admit Provider: Win Mcfarlane Primary Care Provider: Marcia Clemente Other Providers: [facility]; Win Mcfarlane Other Interventions: Discharge Summary Assessment (RN) Last Done: 11/17/23 13:42 Supervising Physician Co-Signing Physician Notes Attending Physician Supervision Note: I independently interviewed and examined the patient and verified the rizzo history and physical, reviewed labs and image studies and agree with findings and care plan noted above. Medical history -- History of A-fib on Xarelto, pulmonary fibrosis, scleroderma, chronic ulcers, protein malnutrition due to GI effect of scleroderma. Here with weakness and dyspnea. Progressive weakness and Dyspnea - [place] more weak after having been diuresed recently as outpatient. Also with electrolyte imbalance on arrival - resolved on discharge. PT/OT recommends short term rehab. HypoNa/HypoK - resolved with repletion and holding hctz. BP readings low - will d/c hctz. Leg edema - Likely from right heart dysfunction from pul pathology - prn lasix with weight gain. Protein malnutrition - Fashion Model consulted. Recommendations as above. Swallowing dysfunction - Tolerating boost supplement. Outpatient GI f/u - h/o esophageal strictures. Pressure ulcer of left buttock, stage 2, POA - wound care
--- NOTE | 2023-11-18 14:00 | Coding Query ---
MALNUTRITION To promote full compliance with coding requirements relating to patient care, physician participation is requested in all cases of chair trimmer uncertainty. Please assist us with the question(s) below: Please place an X within the parenthesis (x). If other, please document: "Malnutrition" is documented in this record. If possible, please check the box that provides a more specific diagnosis: ( ) Mild malnutrition ( ) Moderate malnutrition ( ) Severe malnutrition ( ) Protein malnutrition (kwashiorkor) ( ) Severe protein calorie malnutrition ( ) Protein calorie malnutrition, unspecified (x ) Other (please specify): Hypoproteinemia Thank you [facility]
== END 2023-11-17 14:12 | DRG 948 ==
LOC: SUATTDRO → ED 10:52 → SUATTDRO 16:01 → 2W 16:01

== ENCOUNTER 2023-12-27 22:15 | Inpatient (IN) ==
[2023-12-27] MEDS ORDERED: Patient's HEIGHT &/or WEIGHT Needed STA (22:23)
--- NOTE | 2023-12-27 22:39 | Emergency Department Note ---
Impression & Plan Acute constipation, Urinary tract infection, Acute hyponatremia, Bilateral leg weakness ED Provider Note NAME: LJ Garcia NIKOLE AGE: 68 SEX: F : 1955 ARRIVES VIA: Walk-In INFORMANT: Patient, ED PROVIDER(S): Parmjit Gao DO CHIEF COMPLAINT: Constipation HPI: The patient is a 68-year-old female who presented to the emergency department for constipation. The patient's been having constipation over the course the last week. She denies having any rectal bleeding. She denies having any abdominal pain or vomiting. The patient was sitting on the toilet for an extended period of time today afterwards she could not stand up and felt very weak in her legs. She came the emergency department for further evaluation. The patient has had problems similar in the past. She has tried the usual [id number] laxatives without any relief. ROS: See above HPI for pertinent positives & negatives. A total of 10 systems reviewed and were otherwise negative. PAST MEDICAL HISTORY: See Below PAST SURGICAL HISTORY: See Below FAMILY HISTORY: See Below SOCIAL HISTORY: See Below HOME MEDICATIONS: See Below ALLERGIES: See Below VITALS: See Below PHYSICAL EXAMINATION: GENERAL: Patient is awake alert in no acute distress patient is resting comfortably and showing no signs of anxiety EYES: The conjunctivae are clear. The pupils are round and reactive. EARS, NOSE, MOUTH AND THROAT: The nose is without any evidence of any deformity. Mucous membranes are moist. Tongue is midline. NECK: The neck is nontender and supple. RESPIRATORY: Normal respiratory effort is noted there is no evidence of wheezing rhonchi or rales CARDIOVASCULAR: Regular rate and rhythm noted there no murmurs rubs or gallops normal S1 normal S2. GASTROINTESTINAL: The abdomen is soft. Abdomen is nontender. MUSCULOSKELETAL/EXTREMITIES: There is no evidence of gross deformity full range of motion is noted in the hips and shoulders. SKIN: Skin is cool and dry. There is pedal edema bilaterally. NEUROLOGIC: Patient is awake alert and oriented x3. Patient is able to hold each leg off of the bed. She does have symmetric weakness in both legs. MEDICAL DECISION MAKING: The patient is a 68-year-old female who presented to the emergency department for an evaluation of constipation. The patient's history and physical exam was not consistent with acute surgical abdomen. For this reason the patient initially had laboratory and radiographic studies obtained in the means of plain x-rays. Plain x-rays appeared to be consistent with dilated loops of bowel but no free air. I was concerned this may represent an underlying obstruction so a CT of the abdomen and pelvis was obtained. I discussed the patient's laboratory and radiographic studies with her. I discussed her condition with the on-call [facility] Hospitalist. They have agreed to evaluate the patient in the emergency department. Certainly the patient may require further inpatient workup or possibly evaluation by cpr instructor. Triage Nursing notes reviewed. Prior medical records reviewed Vital Signs: reviewed and remarkable for no significant abnormalities Differential diagnosis: Functional constipation, impaction, obstruction, volvulus, metabolic abnormality, infection, neurologic, as well as other pathologies. ER treatment provided: See below Diagnostics interpreted by me: ECG: none Cardiac Monitoring: An order was placed for continuous cardiac monitoring. The monitor shows a rate of 82 bpm with sinus rhythm. Laboratory studies: As stated above and show below. Imaging studies: See below. Radiographic imaging was reviewed by myself Consultation(s): I discussed this case with Dr. Gaona who is on-call for the [facility]. Past Med/Surg History Problem List (Updated 12/28/23 @ 00:47 by Parmjit Gao DO) Bilateral leg weakness (Acute) Acute hyponatremia (Acute) Urinary tract infection (Acute) Acute constipation (Acute) Macrocytic anemia Generalized weakness Anemia (Acute) Weakness (Acute) Pressure ulcer, buttock (Acute) Pallor (Acute) Surgical wound, non healing (Acute) Induration of periwound skin Pain of right scapula Hypokalemia (Acute) Hypomagnesemia Hypokalemia Acute respiratory failure with hypoxia Hypoxia (Acute) Bronchitis due to human metapneumovirus (hMPV) (Acute) Dyspnea on minimal exertion (Acute) Hypoxia (Acute) Acute respiratory distress (Acute) Acute bronchitis (Acute) Lumbar degenerative disc disease Stage III pressure ulcer (Acute) Gastroparesis Regurgitation of food Dysphagia Encounter for pre-operative examination Vocal cord nodules Anticoagulant long-term use Acute upper respiratory infection (Acute) History of atrial fibrillation (Acute) Pulmonary fibrosis (Acute) Atrial flutter (Acute) No significant past surgical history Allergic rhinitis caused by mold (Chronic) Allergic rhinitis due to dust mite (Chronic) Allergic rhinitis due to animal hair and dander (Chronic) Allergic rhinitis due to pollen (Chronic) GERD (gastroesophageal reflux disease) MONTES (dyspnea on exertion) (Acute) Raynaud's syndrome Asthma (Chronic) rare res inh use Pulmonary fibrosis (Chronic) Medical History Hypomagnesemia MONTES (dyspnea on exertion) Nausea Decreased appetite Hypomagnesemia Decubitus skin ulcer Hypertension Scleroderma Atrial fibrillation on xarelto follows with Dr. Bustamante > no pacer History of COVID-fall Poor intravenous access "took 2 hours to get IV in for last procedure, finally needed the [place] machine to get in place, had to be put in by anesthesia" Environmental and seasonal allergies History of cardioversion x several Chronic back pain Chronic diarrhea Gastroparesis On anticoagulant therapy xarelto daily Surgical History S/P debridement (01/28/23) Abdominal Wall Wound Debridement, Skin, Subcutaneous, Fascia 15x8 - Rasheed Ward MD, FACS > pt still has at present, follows with wound clinic History of benign breast biopsy History of dilatation and curettage History of total right knee replacement (TKR) History of colonoscopy History of esophagogastroduodenoscopy (EGD) Status post fine needle biopsy on thyroid--all benign History of tooth extraction full upper History of bilateral cataract extraction History of cardiac radiofrequency ablation (~10/2020) 2020 [place] [facility] [place] of hand surgery finger surgery > right History of hernia repair History of cholecystectomy History of surgery Mutiple GI procedures for blocked bowel. History of gastric bypass [id number] Family History Father Hearing loss Brother Hearing loss Other Cancer Heart disease Hypertension No family history of adverse response to anesthesia No family history of bleeding disorder Stroke Social History Smoking Status: Never smoker Second Hand Exposure: No; Do You Dip or Chew Tobacco: No; Hx Alcohol Use: No Hx Substance Use: No Preferred Language: Croatian Communication Ability: Effective Case Advocate Required: No Beliefs That Will Affect Care: None marital status: Single Current Living Situation: Alone Current Living Situation Comment: lives home alone current occupational status: retired Feels Safe at Home: Yes Diet: other Diet Comment: gastroparesis caffeine: Yes Assistive Devices: Lift Chair and Walker Allergies Allergies Allergy/AdvReac Type Severity Reaction Status Date / Time simvastatin [From Zocor] Allergy Intermediate "made me Verified 12/16/23 14:44 pass out" ibuprofen Allergy Mild stomach Verified 12/16/23 14:44 pain naproxen [From Aleve] Allergy Mild STOMACH Verified 12/16/23 14:44 PAIN oxycodone [From Percocet] Allergy Mild stomach Verified 12/16/23 14:44 pain oyster extract AdvReac Gastrointestinal Verified 12/16/23 14:44 Upset scallops AdvReac Gastrointestinal Verified 12/16/23 14:44 Upset Home Meds Home Medications Medication Instructions Recorded Confirmed hydroxychloroquine 200 mg tablet 400 mg PO QPM 02/23/19 11/14/23 rivaroxaban 20 mg tablet (Xarelto) 20 mg PO QPM 02/23/19 11/14/23 lactase 3,000 unit tablet 3,000 units PO QID PRN Abdominal 05/08/19 11/14/23 Discomfort multivitamin 1 tab PO QAM 05/08/19 11/14/23 metoprolol succinate 100 mg 100 mg PO QPM 04/25/20 11/14/23 tablet,extended release 24 hr Saccharomyces boulardii 250 mg 250 mg PO QAM 04/28/21 11/14/23 capsule (Digest Probiotic (S.boulardii)) calcium carbonate 500 mg PO QAM 04/28/21 11/14/23 cetirizine 10 mg capsule (Zyrtec) 10 mg PO QAM 04/28/21 11/14/23 hwkqbwrq-fal-GP 200 mcg-vit K 15 1 tab PO QPM 04/28/21 11/14/23 mcg-lycope 150 tnt-mylpta-wein tablet (Ocuvite Eye Plus Multi) omeprazole 40 mg capsule,delayed 40 mg PO QAM 04/28/21 11/14/23 release spironolactone 25 mg tablet 25 mg PO QAM 03/29/22 11/14/23 dilhn-p-hsxxizdxlplly 450 unit 450 unit PO BIDWMEAL PRN .abd 05/28/22 11/14/23 disintegrating tablet (Beano) bloating cyanocobalamin (vitamin B-12) 500 500 mcg PO DAILY 05/28/22 11/14/23 mcg tablet deksxg-cfpzwzcy-mugvbyg 1 cap PO TID 05/28/22 11/14/23 6,000-19,000-30,000 unit capsule,delayed rel (Creon) mycophenolate mofetil 500 mg tablet 500 mg PO BID 05/28/22 11/14/23 prednisolone acetate 1 % eye 1 drp OPL UD 05/28/22 11/14/23 drops,suspension simethicone 80 mg chewable tablet 80 mg PO DIRECTED PRN 05/28/22 11/14/23 .gas/bloating cholecalciferol (vitamin D3) 25 10,000 unit PO QAM 11/29/22 11/14/23 mcg (1,000 unit) capsule (Vitamin D3) magnesium oxide 400 mg PO DAILY 06/16/23 11/14/23 ondansetron HCl 4 mg tablet 4 mg PO Q6H PRN Nausea And Vomiting 06/16/23 11/14/23 albuterol sulfate 1.25 mg/3 mL 2.5 mg inhalation QID 09/30/23 11/14/23 solution for nebulization furosemide 20 mg tablet 20 mg PO DAILY 11/14/23 11/14/23 iron 1 tab PO QAM 11/14/23 11/14/23 krill oil 1 cap PO DAILY 11/14/23 11/14/23 Previous Rx's Medication Instructions Recorded tramadol 37.5 mg-acetaminophen 325 1 tab PO QID PRN pain #30 tabs 11/14/18 mg tablet triamcinolone acetonide 55 mcg 2 sprays intranasal DAILY #33.8 mL 11/14/18 nasal spray aerosol (Nasacort) albuterol sulfate 90 mcg/actuation 1 puff inhalation Q6H PRN 11/08/22 aerosol inhaler (ProAir HFA) shortness of breath or wheezing #8 grams fluticasone 250 mcg-salmeterol 50 1 inh inhalation BID #180 puffs 11/08/22 mcg/dose blistr powdr for inhalation (Advair Diskus) Results & Data (ED) Vital Signs Vital Signs - 24 hr 12/27/23 22:23 12/27/23 22:34 12/27/23 22:39 Temperature 36.9 C Temperature Source Temporal Artery Scan Pulse Rate 84 72 Pulse Rate [Apical] Pulse Rate from SpO2 Sensor Pulse Rhythm Pulse Rhythm [Apical] Respiratory Rate 16 Respiratory Effort / Characteristics Non-Labored Spontaneous Respiratory Depth Normal Respiratory Pattern Blood Pressure 120/78 134/95 Blood Pressure [Right Arm] Blood Pressure Mean 92 103 Blood Pressure Mean [Right Arm] Pulse Oximetry 96 Oxygen Delivery Method Room Air Sepsis Recent Fever Within 48 Hours No Sepsis New/Unexplained Change in Mental Status No Sepsis Action Taken by Nursing No Action Required 12/27/23 22:39 12/27/23 23:00 12/27/23 23:03 Temperature Temperature Source Pulse Rate 72 81 Pulse Rate [Apical] 75 Pulse Rate from SpO2 Sensor 82 83 Pulse Rhythm Pulse Rhythm [Apical] Respiratory Rate 20 18 20 Respiratory Effort / Characteristics Non-Labored Spontaneous Respiratory Depth Normal Respiratory Pattern Regular Blood Pressure 110/77 Blood Pressure [Right Arm] 110/77 Blood Pressure Mean 88 Blood Pressure Mean [Right Arm] 88 Pulse Oximetry 93 94 95 Oxygen Delivery Method Room Air Room Air Room Air Sepsis Recent Fever Within 48 Hours Sepsis New/Unexplained Change in Mental Status Sepsis Action Taken by Nursing 12/27/23 23:03 12/27/23 23:30 12/28/23 00:00 Temperature Temperature Source Pulse Rate 82 80 79 Pulse Rate [Apical] Pulse Rate from SpO2 Sensor 82 Pulse Rhythm Regular Pulse Rhythm [Apical] Respiratory Rate 20 16 21 Respiratory Effort / Characteristics Respiratory Depth Respiratory Pattern Blood Pressure 117/70 118/56 L Blood Pressure [Right Arm] Blood Pressure Mean 85 66 Blood Pressure Mean [Right Arm] Pulse Oximetry 96 90 91 Oxygen Delivery Method Room Air Room Air Room Air Sepsis Recent Fever Within 48 Hours Sepsis New/Unexplained Change in Mental Status Sepsis Action Taken by Nursing 12/28/23 01:00 12/28/23 01:00 12/28/23 01:30 Temperature Temperature Source Pulse Rate 92 H 88 Pulse Rate [Apical] 82 Pulse Rate from SpO2 Sensor 90 Pulse Rhythm Pulse Rhythm [Apical] Regular Respiratory Rate 18 18 21 Respiratory Effort / Characteristics Non-Labored Spontaneous Respiratory Depth Normal Respiratory Pattern Regular Blood Pressure 119/66 143/63 H Blood Pressure [Right Arm] 119/66 Blood Pressure Mean 99 89 Blood Pressure Mean [Right Arm] 83 Pulse Oximetry 92 92 90 Oxygen Delivery Method Room Air Room Air Room Air Sepsis Recent Fever Within 48 Hours Sepsis New/Unexplained Change in Mental Status Sepsis Action Taken by Long Term Medications Current Medication List: was personally reviewed by me Laboratory Data Attestation: I reviewed the patient's lab results. 12/27/23 22:48 12/27/23 22:48 Lab Results 12/27/23 12/27/23 Range/Units 22:48 22:56 WBC 12.54 H (4.8-10.8) K/ul RBC 3.85 L (4.20-5.40) M/uL Hgb 12.4 (12.0-16.0) g/dl Hct 37.3 (37.0-47.0) % MCV 96.9 (80.0-100.0) fL MCH 32.2 (25.0-34.0) pg MCHC 33.2 (32.0-36.0) g/dL RDW Std Deviation 52.6 H (36.4-46.3) fL RDW Coeff of Lorenzo 14.7 H (11.5-14.5) % Plt Count 278 (130-400) K/uL MPV 10.1 (9.4-12.4) fL Immature Gran % (Auto) 0.2 % Neut % (Auto) 78.8 % Lymph % (Auto) 13.9 % [place] % (Auto) 6.5 % Eos % (Auto) 0.3 % Baso % (Auto) 0.3 % Neut # (Auto) 9.88 H (1.40-6.50) K/uL Lymph # (Auto) 1.74 (1.20-3.40) K/uL [place] # (Auto) 0.81 H (0.11-0.59) K/uL Eos # (Auto) 0.04 (0.00-0.50) K/uL Baso # (Auto) 0.04 (0.00-0.20) K/uL Immature Gran # (Auto) 0.03 (0.01-0.20) K/uL Sodium 128 L (136-145) mmol/L Potassium 3.5 (3.5-5.1) mmol/L Chloride 85 L (98-107) mmol/L Carbon Dioxide 36 H (21-32) mmol/L Anion Gap 7 (3-11) BUN 12 (6-23) mg/dl Creatinine 0.23 L (0.6-1.2) mg/dl Est Cr Clr Drug Dosing Not Reportable eGFR 122.35 BUN/Creatinine Ratio 52.2 H (10-20) Glucose 88 (70-99(Fasting)) mg/dl Calcium 8.2 L (8.6-10.3) mg/dl Total Bilirubin 1.1 H (0.2-1.0) mg/dl AST 88 H (13-39) U/L ALT 78 H (7-52) U/L Alkaline Phosphatase 151 H (34-104) U/L Total Protein 5.8 L (6.0-8.3) gm/dl Albumin 3.0 L (3.4-5.0) gm/dl Globulin 2.8 (2.5-4.0) gm/dl Albumin/Globulin Ratio 1.1 (0.9-2) Lipase 3 L (11-82) U/L Urine Color Dark Yellow Urine Appearance Turbid A (Clear) Urine pH 7.0 (4.5-7.5) Ur Specific Leslie 1.027 (1.000-1.030) Urine Protein 1+ H (Negative) Urine Glucose (UA) Negative (Negative) Urine Ketones 1+ H (Negative) Urine Blood 1+ H (Negative) Urine Nitrite Negative (Negative) Urine Bilirubin 1+ H (Negative) Urine Urobilinogen Negative (Negative) Ur Leukocyte Esterase 3+ H (Negative) Urine WBC (Auto) >50 H (0-5) /hpf Urine RBC (Auto) 3-5 H (0-2) /hpf U Hyaline Cast (Auto) 0-2 (0-2) /lpf U Epithel Cells (Auto) 0-2 (0-2) /hpf Urine Bacteria (Auto) 4+ H (None Seen) Calcium Oxalate Crystal Present A (None Prsent) Administered Medications Discontinued Medications Ceftriaxone Sodium (Rocephin) 2,000 mg in 50 mls @ 100 mls/hr IV NOW STA Stop: 12/28/23 01:15 Last Admin: 12/28/23 01:24 Dose: 100 mls/hr Documented By: ISIAH Ioversol (Optiray 320 100ml) 94 ml IV ONCE ONE Stop: 12/28/23 00:21 Last Admin: 12/28/23 00:21 Dose: 94 ml Documented By: ISAC Imaging Data Attestation: I personally reviewed and interpreted this imaging study as follows: My Impression: 1 view chest x-ray was obtained in the emergency department. Atelectasis was noted on the plain x-ray but no free air, there was dilated loops of bowel noted on the plain x-ray of the KUB, there is no free air, final reports pending. CT of the abdomen and pelvis was obtained in the emergency department. My interpretation is dilated loops of small bowel, final report below. Radiologist's Impression: Abdomen/Pelvis CT 12/27/23 23:43 Exam(s): CT ABDOMEN + PELVIS With Contrast IV Amt: 94 cc optiray 320 EXAM: CT Abdomen and Pelvis With Intravenous Contrast CLINICAL HISTORY: Reason for exam: abd pain. TECHNIQUE: Axial computed tomography images of the abdomen and pelvis with intravenous contrast. CTDI is 28.12 mGy and DLP is 1548.06 mGy-cm. Automated exposure control was utilized for the study. A dose lowering technique was utilized adhering to the principles of ALARA. CONTRAST: Patient received 94 cc optiray 320 of IV contrast COMPARISON: 12/24/22. FINDINGS: Lung bases: Mild dependent bibasilar atelectasis. Pneumonia or aspiration not definitively excluded. Pleural space: Small left and trace right basilar pleural effusions. ABDOMEN: Liver: Diffuse fatty infiltration of the liver. Gallbladder and bile ducts: Post cholecystectomy, unchanged. No biliary ductal dilatation. Pancreas: Pancreas is atrophic, otherwise, unremarkable. No ductal dilation. Spleen: Unremarkable. No splenomegaly. Adrenals: Unremarkable. No mass. Kidneys and ureters: Unremarkable. No hydronephrosis. Simple, 2.0 cm right renal cyst requires no further follow-up. Stomach and bowel: Large amount of organized stool throughout the colon without dilatation to suggest obstruction. Transition point in the third portion of the duodenum with marked fluid distention of the proximal and distal duodenum and proximal jejunum, more prominent in appearance compared to prior examination. Findings may represent stenosis or stricture. Detail limited as no enteric contrast was administered. Post gastric bypass, unchanged. No mucosal thickening. PELVIS: Appendix: No findings to suggest acute appendicitis. Bladder: Unremarkable. No mass. Reproductive: Unremarkable as visualized. ABDOMEN and PELVIS: Intraperitoneal space: Trace perihepatic ascites. No free air. Bones/joints: No acute fracture. No dislocation. Lumbar spine spondylotic changes present. Soft tissues: Worsening, diffuse anasarca. Vasculature: Unremarkable. No abdominal aortic aneurysm. Lymph nodes: Unremarkable. No enlarged lymph nodes. IMPRESSION: 1. Mild dependent bibasilar atelectasis. Pneumonia or aspiration not definitively excluded. 2. Transition point in the third portion of the duodenum with marked fluid distention of the proximal and distal duodenum and proximal jejunum, more prominent in appearance compared to prior examination. Findings may represent stenosis or stricture. Detail limited as no enteric contrast was administered. 3. Trace perihepatic ascites. 4. Worsening, diffuse anasarca. Electronically signed by: Tommy Fernandez MD 12/28/23 01:26 AM Discharge Plan Visit Data Chief Complaint: Constipation Stated Complaint: CONSTIPATION,LEG PAIN ED Provider: Parmjit Gao Discharge Problem: Acute constipation, Urinary tract infection, Acute hyponatremia, Bilateral leg weakness Patient Disposition: Being Evaluated by Hospitalist Forms Stand Alone Forms: [facility] Prescriptions Prescriptions: No Action cholecalciferol (vitamin D3) [Vitamin D3] 25 mcg (1,000 unit) capsule 10,000 unit PO QAM Rx Instructions: 10,000 albuterol sulfate 1.25 mg/3 mL solution for nebulization 2.5 mg inhalation QID lactase 3,000 unit tablet 3,000 units PO QID PRN (Reason: Abdominal Discomfort) multivitamin Tablet 1 tab PO QAM triamcinolone acetonide [Nasacort] 55 mcg aerosol,spray 2 sprays INTNAS DAILY Qty: 33.8 0RF Rx Instructions: administer into each nostril tramadol-acetaminophen 37.5-325 mg tablet 1 tab PO QID PRN (Reason: pain) Qty: 30 0RF spironolactone 25 mg tablet 25 mg PO QAM albuterol sulfate [ProAir HFA] 90 mcg/actuation HFA aerosol inhaler 1 puff INH Q6H PRN (Reason: shortness of breath or wheezing) Qty: 8 0RF fluticasone propion-salmeterol [Advair Diskus] 250-50 mcg/dose blister with device 1 inh INHALATION BID Qty: 180 3RF Xarelto 20 mg Tablet 20 mg PO QPM hydroxychloroquine 200 mg tablet 400 mg PO QPM metoprolol succinate 100 mg tablet extended release 24 hr 100 mg PO QPM omeprazole 40 mg capsule,delayed release(DR/EC) 40 mg PO QAM calcium carbonate 500 mg calcium (1,250 mg) tablet 500 mg PO QAM Saccharomyces boulardii [Digest Probiotic (S.boulardii)] 250 mg capsule 250 mg PO QAM Rx Instructions: swallow whole Zyrtec 10 mg capsule 10 mg PO QAM Ocuvite Eye Plus Multi 200-15-150 mcg tablet 1 tab PO QPM Rx Instructions: administer with a meal and a large glass of water Beano 450 unit Tablet,Disintegrating 450 unit PO BIDWMEAL PRN (Reason: .abd bloating) Creon 6,000-19,000 -30,000 unit capsule,delayed release(DR/EC) 1 cap PO TID Rx Instructions: do not exceed 10,000 unit/kg lipase per 24 hrs mycophenolate mofetil 500 mg tablet 500 mg PO BID prednisolone acetate 1 % drops,suspension 1 drp OPL UD Rx Instructions: 1 drop both eyes qam, 1 drop left in pm cyanocobalamin (vitamin B-12) 500 mcg Tablet 500 mcg PO DAILY simethicone 80 mg Tablet,Chewable 80 mg PO DIRECTED PRN (Reason: .gas/bloating) ondansetron HCl 4 mg Tablet 4 mg PO Q6H PRN (Reason: Nausea And Vomiting) magnesium oxide 400 mg magnesium tablet 400 mg PO DAILY furosemide 20 mg tablet 20 mg PO DAILY iron 1 tab PO QAM Rx Instructions: otc krill oil 1 cap PO DAILY Referrals Referrals: Marcia Clemente MD [Primary Care Provider] - Discharge Problem: Urinary tract infection Qualifiers: Urinary tract infection type: site unspecified Hematuria presence: without hematuria Qualified Code(s): N39.0 - Urinary tract infection, site not specified
[2023-12-27 23:05] LABS: Basophils # (auto) 0.04 K/uL (0.00-0.20); Basophils % (auto) 0.3 %; Eosinophils # (auto) 0.04 K/uL (0.00-0.50); Eosinophils % (auto) 0.3 %; Hematocrit (blood only) 37.3 % (37.0-47.0); Hemoglobin 12.4 g/dl (12.0-16.0); Immature Granulocytes # (auto) 0.03 K/uL (0.01-0.20); Immature Granulocytes % (auto) 0.2 %; Lymphocytes # (auto) 1.74 K/uL (1.20-3.40); Lymphocytes % (auto) 13.9 %; Mean Corpuscular Hemoglobin 32.2 pg (25.0-34.0); Mean Corpuscular Hgb Conc 33.2 g/dL (32.0-36.0); Mean Corpuscular Volume 96.9 fL (80.0-100.0); Mean Platelet Volume 10.1 fL (9.4-12.4); Monocytes # (auto) 0.81 K/uL (0.11-0.59); Monocytes % (auto) 6.5 %; Neutrophils # (auto) 9.88 K/uL (1.40-6.50); Neutrophils % (auto) 78.8 %; Platelet Count 278 K/uL (130-400); RDW Coefficient of Variation 14.7 % (11.5-14.5); RDW Standard Deviation 52.6 fL (36.4-46.3); Red Blood Count 3.85 M/uL (4.20-5.40); White Blood Count 12.54 K/ul (4.8-10.8)
[2023-12-27 23:20] LABS: Alanine Aminotransferase 78 U/L (7-52); Albumin Globulin Ratio 1.1 (0.9-2); Alkaline Phosphatase 151 U/L (34-104); Anion Gap 7 (3-11); Aspartate Aminotransferase 88 U/L (13-39); BUN Creatinine Ratio 52.2 (10-20); Bilirubin,Total 1.1 mg/dl (0.2-1.0); Blood Urea Nitrogen 12 mg/dl (6-23); Calcium 8.2 mg/dl (8.6-10.3); Carbon Dioxide 36 mmol/L (21-32); Chloride 85 mmol/L (98-107); Globulin 2.8 gm/dl (2.5-4.0); Glucose 88 mg/dl (70-99(Fasting)); Lipase 3 U/L (11-82); Potassium 3.5 mmol/L (3.5-5.1); Sodium 128 mmol/L (136-145); Total Protein 5.8 gm/dl (6.0-8.3)
[2023-12-27 23:59] LABS: Appearance Urine Turbid (Clear); Bacteria Urine Automated 4+ (None Seen); Bilirubin Urine 1+ (Negative); Blood Urine 1+ (Negative); Cast Urine Automated 0-2 /lpf (0-2); Color Urine Dark Yellow; Epithelial Cell Urine Auto 0-2 /hpf (0-2); Glucose Urine UA Negative (Negative); Ketones Urine 1+ (Negative); Leukocyte Esterase Urine 3+ (Negative); Nitrite Urine Negative (Negative); Protein Urine 1+ (Negative); Specific Gravity Urine 1.027 (1.000-1.030); Urobilinogen Urine Negative (Negative); WBC Urine Automated >50 /hpf (0-5)
[2023-12-28 00:14] LABS: Calcium Oxalate Crystals Urine Present (None Prsent)
[2023-12-28] MEDS: OPTIRAY 320 100ml IV ONE (00:21)
[2023-12-28] MEDS: cefTRIAXone SODIUM 2,000 MG/50 ML BAG IV STA (01:24)
--- NOTE | 2023-12-28 01:27 | CT Scan Report ---
Exam(s): CT ABDOMEN + PELVIS With Contrast IV Amt: 94 cc optiray 320 EXAM: CT Abdomen and Pelvis With Intravenous Contrast CLINICAL HISTORY: Reason for exam: abd pain. TECHNIQUE: Axial computed tomography images of the abdomen and pelvis with intravenous contrast. CTDI is 28.12 mGy and DLP is 1548.06 mGy-cm. Automated exposure control was utilized for the study. A dose lowering technique was utilized adhering to the principles of ALARA. CONTRAST: Patient received 94 cc optiray 320 of IV contrast COMPARISON: 12/24/22. FINDINGS: Lung bases: Mild dependent bibasilar atelectasis. Pneumonia or aspiration not definitively excluded. Pleural space: Small left and trace right basilar pleural effusions. ABDOMEN: Liver: Diffuse fatty infiltration of the liver. Gallbladder and bile ducts: Post cholecystectomy, unchanged. No biliary ductal dilatation. Pancreas: Pancreas is atrophic, otherwise, unremarkable. No ductal dilation. Spleen: Unremarkable. No splenomegaly. Adrenals: Unremarkable. No mass. Kidneys and ureters: Unremarkable. No hydronephrosis. Simple, 2.0 cm right renal cyst requires no further follow-up. Stomach and bowel: Large amount of organized stool throughout the colon without dilatation to suggest obstruction. Transition point in the third portion of the duodenum with marked fluid distention of the proximal and distal duodenum and proximal jejunum, more prominent in appearance compared to prior examination. Findings may represent stenosis or stricture. Detail limited as no enteric contrast was administered. Post gastric bypass, unchanged. No mucosal thickening. PELVIS: Appendix: No findings to suggest acute appendicitis. Bladder: Unremarkable. No mass. Reproductive: Unremarkable as visualized. ABDOMEN and PELVIS: Intraperitoneal space: Trace perihepatic ascites. No free air. Bones/joints: No acute fracture. No dislocation. Lumbar spine spondylotic changes present. Soft tissues: Worsening, diffuse anasarca. Vasculature: Unremarkable. No abdominal aortic aneurysm. Lymph nodes: Unremarkable. No enlarged lymph nodes. IMPRESSION: 1. Mild dependent bibasilar atelectasis. Pneumonia or aspiration not definitively excluded. 2. Transition point in the third portion of the duodenum with marked fluid distention of the proximal and distal duodenum and proximal jejunum, more prominent in appearance compared to prior examination. Findings may represent stenosis or stricture. Detail limited as no enteric contrast was administered. 3. Trace perihepatic ascites. 4. Worsening, diffuse anasarca. Electronically signed by: Tommy Fernandez MD 12/28/23 01:26 AM
--- NOTE | 2023-12-28 01:32 | History & Physical Report ---
Date of Service December 28, 2023 Assessment & Plan (1) Constipation: Plan: Pt is a 68 yo female with PMH of scleroderma (with associated pulmonary fibrosis), afib, and HTN presenting d/t constipation. Constipation vs. SBO - pt notes last BM a few days ago and now with nausea, abdominal pain, and lack of appetite - KUB showed large, dilated loops of bowel; CTAP showing transition point in duodenum with concern for stricture vs. stenosis - pt with significant past surgical hx of gastric bypass and multiple surgical interventions for bowel blockages - will keep NPO except meds and IVF; monitor for resolving symptoms - gen surg consulted for further eval Hyponatremia - Na 128 on admission - suspect secondary to hypovolemia in the setting of poor PO intake - urine Na, osmolality and serum osmolality ordered - trend labs UTI - pt notes increased urinary frequency over the last few days - pt with leukocytosis to 12, UA showing 1+ blood, 3+ LE, 4+ bacteria; urine culture pending - s/p ceftriaxone in the ER; will continue upon admission Afib - continue home xarelto, metoprolol HTN - continue home spironolactone Scleroderma with associated pulmonary fibrosis - pt follows with rheum as an outpatient - continue home inhalers/medications Diet: NPO, LR at 100 mL/hr Code: full VTE ppx: home xarelto Dispo: admit to med/surg (2) Hyponatremia: (3) Pulmonary fibrosis: (4) Scleroderma: (5) Urinary tract infection: Plan Patient discussed with Dr. Dunbar at time of admission and I agree with the assessment and plan as above. History of Present Illness Chief Complaint: constipation Primary Care Provider: Marcia Clemente MD Pt is a 68 yo female with PMH of scleroderma (with associated pulmonary fibrosis), afib, and HTN presenting d/t constipation. Pt notes she has not had a BM since Tuesday when she actually had diarrhea. Sin ce then, she has had some abdominal discomfort, nausea, and vomiting. She has been taking dulcolax at home to help facilitate a BM but this has not worked. She was sitting on the toilet straining to have a BM for 30 minutes earlier today and she noted to have leg weakness d/t this. She is getting home PT/OT 4 days per week. Pt denies chest pain or SOB. In the ER, pt was given rocephin x1 d/t concern for urine infection. Allergies Allergy/AdvReac Type Severity Reaction Status Date / Time simvastatin [From Zocor] Allergy Intermediate "made me Verified 12/16/23 14:44 pass out" ibuprofen Allergy Mild stomach Verified 12/16/23 14:44 pain naproxen [From Aleve] Allergy Mild STOMACH Verified 12/16/23 14:44 PAIN oxycodone [From Percocet] Allergy Mild stomach Verified 12/16/23 14:44 pain oyster extract AdvReac Gastrointestinal Verified 12/16/23 14:44 Upset scallops AdvReac Gastrointestinal Verified 12/16/23 14:44 Upset Home Medications Medication Instructions Recorded Confirmed Type tramadol 37.5 mg-acetaminophen 325 1 tab PO QID PRN pain #30 tabs 11/14/18 12/28/23 Rx mg tablet hydroxychloroquine 200 mg tablet 400 mg PO QPM 02/23/19 12/28/23 History rivaroxaban 20 mg tablet (Xarelto) 20 mg PO QPM 02/23/19 12/28/23 History lactase 3,000 unit tablet 3,000 units PO QID PRN Abdominal 05/08/19 12/28/23 History Discomfort multivitamin 1 tab PO QAM 05/08/19 12/28/23 History metoprolol succinate 100 mg 100 mg PO QPM 04/25/20 12/28/23 History tablet,extended release 24 hr Saccharomyces boulardii 250 mg 250 mg PO QAM 04/28/21 12/28/23 History capsule (Digest Probiotic (S.boulardii)) calcium carbonate 500 mg PO QAM 04/28/21 12/28/23 History cetirizine 10 mg capsule (Zyrtec) 10 mg PO QAM 04/28/21 12/28/23 History klgpvrth-eqd-CR 200 mcg-vit K 15 1 tab PO QPM 04/28/21 12/28/23 History mcg-lycope 150 uum-cvlfil-alae tablet (Ocuvite Eye Plus Multi) omeprazole 40 mg capsule,delayed 40 mg PO QAM 04/28/21 12/28/23 History release spironolactone 25 mg tablet 25 mg PO QAM 03/29/22 12/28/23 History agejp-h-uzdpajqkgjxgw 450 unit 450 unit PO BIDWMEAL PRN .abd 05/28/22 12/28/23 History disintegrating tablet (Beano) bloating cyanocobalamin (vitamin B-12) 500 500 mcg PO DAILY 05/28/22 12/28/23 History mcg tablet klzsmf-pjsolwxh-esjbbfc 1 cap PO TID 05/28/22 12/28/23 History 6,000-19,000-30,000 unit capsule,delayed rel (Creon) mycophenolate mofetil 500 mg tablet 500 mg PO BID 05/28/22 12/28/23 History prednisolone acetate 1 % eye 1 drp OPB UD 05/28/22 12/28/23 History drops,suspension simethicone 80 mg chewable tablet 80 mg PO DIRECTED PRN 05/28/22 12/28/23 History .gas/bloating fluticasone 250 mcg-salmeterol 50 1 inh inhalation BID #180 puffs 11/08/22 12/28/23 Rx mcg/dose blistr powdr for inhalation (Advair Diskus) cholecalciferol (vitamin D3) 25 10,000 unit PO QAM 11/29/22 12/28/23 History mcg (1,000 unit) capsule (Vitamin D3) magnesium oxide 400 mg PO DAILY 06/16/23 12/28/23 History ondansetron HCl 4 mg tablet 4 mg PO Q6H PRN Nausea And Vomiting 06/16/23 12/28/23 History albuterol sulfate 1.25 mg/3 mL 2.5 mg inhalation QID 09/30/23 12/28/23 History solution for nebulization furosemide 20 mg tablet 20 mg PO QAM 11/14/23 12/28/23 History albuterol sulfate 90 mcg/actuation 1 puff inhalation Q6 PRN Shortness 12/28/23 12/28/23 History aerosol inhaler Of Breath ferrous sulfate 325 mg (65 mg 325 mg PO QAM 12/28/23 12/28/23 History iron) tablet (Iron (ferrous sulfate)) krill 1,000 mg-omega-3 170 mg-dha 1 cap PO DAILY 12/28/23 12/28/23 History 50 mg-epa 80 pc-eegmgf-naphd capsule (krill oil) triamcinolone acetonide 55 mcg 2 sprays intranasal QAM 12/28/23 12/28/23 History nasal spray aerosol (Nasacort) Past Med/Surg History Problem List (Updated 12/28/23 @ 03:55 by Maki Wan) Duodenal stricture Atrial fibrillation on xarelto follows with Dr. Bustamante > no pacer Hyponatremia Constipation Bilateral leg weakness (Acute) Acute hyponatremia (Acute) Urinary tract infection (Acute) Acute constipation (Acute) Macrocytic anemia Generalized weakness Anemia (Acute) Weakness (Acute) Pressure ulcer, buttock (Acute) Pallor (Acute) Surgical wound, non healing (Acute) Induration of periwound skin Pain of right scapula Hypokalemia (Acute) Hypomagnesemia Hypokalemia Acute respiratory failure with hypoxia Hypoxia (Acute) Bronchitis due to human metapneumovirus (hMPV) (Acute) Dyspnea on minimal exertion (Acute) Hypoxia (Acute) Acute respiratory distress (Acute) Acute bronchitis (Acute) Lumbar degenerative disc disease Stage III pressure ulcer (Acute) Gastroparesis Regurgitation of food Dysphagia Encounter for pre-operative examination Vocal cord nodules Anticoagulant long-term use Acute upper respiratory infection (Acute) History of atrial fibrillation (Acute) Pulmonary fibrosis (Acute) Atrial flutter (Acute) No significant past surgical history Allergic rhinitis caused by mold (Chronic) Allergic rhinitis due to dust mite (Chronic) Allergic rhinitis due to animal hair and dander (Chronic) Allergic rhinitis due to pollen (Chronic) GERD (gastroesophageal reflux disease) MONTES (dyspnea on exertion) (Acute) Raynaud's syndrome Asthma (Chronic) rare res inh use Pulmonary fibrosis (Chronic) Medical History Hypomagnesemia MONTES (dyspnea on exertion) Nausea Decreased appetite Hypomagnesemia Decubitus skin ulcer Hypertension Scleroderma History of COVID-fall Poor intravenous access "took 2 hours to get IV in for last procedure, finally needed the [place] machine to get in place, had to be put in by anesthesia" Environmental and seasonal allergies History of cardioversion x several Chronic back pain Chronic diarrhea Gastroparesis On anticoagulant therapy xarelto daily Surgical History S/P debridement (01/28/23) Abdominal Wall Wound Debridement, Skin, Subcutaneous, Fascia 15x8 - Rasheed Ward MD, FACS > pt still has at present, follows with wound clinic History of benign breast biopsy History of dilatation and curettage History of total right knee replacement (TKR) History of colonoscopy History of esophagogastroduodenoscopy (EGD) Status post fine needle biopsy on thyroid--all benign History of tooth extraction full upper History of bilateral cataract extraction History of cardiac radiofrequency ablation (~10/2020) 2020 @ [facility] [place] History of hand surgery finger surgery > right History of hernia repair History of cholecystectomy History of surgery Mutiple GI procedures for blocked bowel. History of gastric bypass raymundo-en-y Family History Father Hearing loss Brother Hearing loss Other Cancer Heart disease Hypertension No family history of adverse response to anesthesia No family history of bleeding disorder Stroke Social History Smoking Status: Never smoker Second Hand Exposure: No; Do You Dip or Chew Tobacco: No; Tobacco Cessation Education Requested by Patient: No Hx Alcohol Use: No Hx Substance Use: No Preferred Language: Frisian Communication Ability: Effective Family Consumer Science Teacher Required: No Beliefs That Will Affect Care: None marital status: Single Current Living Situation: Alone Current Living Situation Comment: lives home alone current occupational status: retired Other Information That Helps Us Care for You: No Feels Safe at Home: Yes Safety Concerns: Feels Safe At This Time Diet: other Diet Comment: gastroparesis caffeine: Yes Assistive Devices: Walker Review of Systems Review of Systems: As per HPI Physical Exam Constitutional: NAD, vitals WNL. Eyes: Conjunctivae normal. Respiratory: CTA bilaterally. Non labored breathing. No rhonchi, wheezing, or crackles. Cardiovascular: Irregular rhythm, regular rate, No murmurs noted. Bilateral 1+ pitting LE edema. Gastrointestinal (Abdomen): Diffusely tender throughout, hypoactive BS. No guarding. No masses noted. Skin: No rashes or skin lesions noted. Neurologic: Sensation grossly intact. No FND appreciated. Psychiatric: Speech of normal pace and content. Mood and affect congruent. Results & Data Results & Data Vital Signs (Past 12 Hours) Vital Signs Temp Pulse Pulse Resp BP BP Pulse Ox 12/28/23 01:00 82 18 119/66 92 12/27/23 23:03 82 20 96 12/27/23 23:03 75 20 110/77 95 12/27/23 22:39 72 12/27/23 22:23 36.9 C 84 16 120/78 96 O2 Del Method 12/28/23 01:00 Room Air 12/27/23 23:03 Room Air 12/27/23 23:03 Room Air 12/27/23 22:39 12/27/23 22:23 Room Air Resident Activity Tracking Resident Involvement: Resident Care Provided Care Provided: Adult Hospital Medicine (5) Urinary tract infection Hematuria presence: without hematuria Urinary tract infection type: site unspecified Qualified Code(s): N39.0 - Urinary tract infection, site not specified
--- NOTE | 2023-12-28 03:02 | Surgery Consultation ---
<Statement entered by Chester Ornelas DO - 12/28/23 12:48> I have discussed this case with the overnight surgical PA. I additionally saw this patient this a.m. with the daytime surgical team. This a.m., the patient was admitting to flatus with decreased abdominal discomfort feeling improved and no nausea. A KUB does not show an obstructive pattern at this time. Enemas have been initiated. If stool is moving of her rectum then the patient may be started on an oral bowel regimen. Surgery will sign off at this time. Please reconsult should there be any questions or concerns. Date of Consultation December 28, 2023 Assessment & Plan (1) Duodenal stricture: Patient has been admitted on the hospital service. From surgery perspective we recommend the following: We recommend keeping the patient n.p.o. Hydrate the patient with IV fluids while the patient is n.p.o. Is unclear if the patient has a duodenal stricture or if she has a small bowel obstruction and would therefore avoid giving anything by mouth as noted above At the present time the patient's abdomen is soft and nondistended and she is not having any emesis and I therefore feel we can hold on placing an NG tube at this time. Review of the patient's CAT scan does report that the patient has significant fecal load in her colon/rectum.I therefore attempted to manually disimpact the patient as noted in the physical exam section of this document. Hopefully stimulation from below in this manner will help have her bowels move. In addition we will try administering an enema to see if this helps with return of bowel function At the present time the patient is nontoxic-appearing, and she is normotensive without hypotension or tachycardia. I suspect the patient has a hostile abdomen due to the multiple surgeries mentioned in history of present illness section of this document. I did discuss with the patient that if she would require any surgical or procedure intervention is likely that she will need to be transferred to [facility] where she has received the majority of her surgical care. -I discussed/formulated this plan with my attending physician History of Present Illness Reason for Consultation: Duodenal stricture History of Present Illness This is a 68-year-old female who presented to the emergency department secondary to constipation. The patient says approximate 4 days ago she was having some diarrhea/loose bowel movements without melena or hematochezia. The following day she reports issues with constipation which has remained for approximately 3 days. She tried taking fugc-skw-pwaovel dulcolax now has lower abdominal cramping with some intermittent nausea and vomiting. 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 Patient reports that she has had multiple abdominal surgeries including a cholecystectomy, gastric bypass in 2006, and she reports that she has had 7-8 exploratory surgery secondary to small bowel obstructions. She is unsure if she had to resect any bowel during any of her exploratory surgeries and could not provide any further as most of the surgeries were performed at [facility]. With her current presentation she denies any fevers, shakes, or chills. Since arrival to the hospital the patient has had labs and imaging which I independently reviewed. Labs included a CBC were white blood cell count is elevated 12.5. Hemoglobin and hematocrit as well as the platelet count were normal. Chemistry profile showed sodium was 128 with a normal potassium. BUN and creatinine are both not elevated. Patient's total bilirubin has a slight elevation of 1.1. Her transaminases include an AST of 88 and ALT of 78. Her alkaline phosphatase is slightly elevated 151. Her lipase is not elevated. Urinalysis is concerning for infectionit is negative for nitrites but has 3+ leukocyte Estrace and pyuria with greater than 50 white blood cells per high- power field and 4+ bacteria. A CT scan of the abdomen pelvis showed the patient had concern for a stenosis or stricture at the duodenum and a distal area over the proximal jejunum was patient was noted to have some fluid distention of this area of her small bowel. There is no intraperitoneal free air. At the time of my interview she was resting comfortably in bed and she was in no distress. Allergies Allergy/AdvReac Type Severity Reaction Status Date / Time simvastatin [From Zocor] Allergy Intermediate "made me Verified 12/16/23 14:44 pass out" ibuprofen Allergy Mild stomach Verified 12/16/23 14:44 pain naproxen [From Aleve] Allergy Mild STOMACH Verified 12/16/23 14:44 PAIN oxycodone [From Percocet] Allergy Mild stomach Verified 12/16/23 14:44 pain oyster extract AdvReac Gastrointestinal Verified 12/16/23 14:44 Upset scallops AdvReac Gastrointestinal Verified 12/16/23 14:44 Upset Home Medications Medication Instructions Recorded Confirmed Type tramadol 37.5 mg-acetaminophen 325 1 tab PO QID PRN pain #30 tabs 11/14/18 12/28/23 Rx mg tablet hydroxychloroquine 200 mg tablet 400 mg PO QPM 02/23/19 12/28/23 History rivaroxaban 20 mg tablet (Xarelto) 20 mg PO QPM 02/23/19 12/28/23 History lactase 3,000 unit tablet 3,000 units PO QID PRN Abdominal 05/08/19 12/28/23 His tory Discomfort multivitamin 1 tab PO QAM 05/08/19 12/28/23 History metoprolol succinate 100 mg 100 mg PO QPM 04/25/20 12/28/23 History tablet,extended release 24 hr Saccharomyces boulardii 250 mg 250 mg PO QAM 04/28/21 12/28/23 History capsule (Digest Probiotic (S.boulardii)) calcium carbonate 500 mg PO QAM 04/28/21 12/28/23 History cetirizine 10 mg capsule (Zyrtec) 10 mg PO QAM 04/28/21 12/28/23 History niqawtgj-swf-AL 200 mcg-vit K 15 1 tab PO QPM 04/28/21 12/28/23 History mcg-lycope 150 elh-gcernw-atha tablet (Ocuvite Eye Plus Multi) omeprazole 40 mg capsule,delayed 40 mg PO QAM 04/28/21 12/28/23 History release spironolactone 25 mg tablet 25 mg PO QAM 03/29/22 12/28/23 History obafe-k-fnpocmfdizajc 450 unit 450 unit PO BIDWMEAL PRN .abd 05/28/22 12/28/23 History disintegrating tablet (Beano) bloating cyanocobalamin (vitamin B-12) 500 500 mcg PO DAILY 05/28/22 12/28/23 History mcg tablet vyjxzp-aeyatgfm-wpdecsf 1 cap PO TID 05/28/22 12/28/23 History 6,000-19,000-30,000 unit capsule,delayed rel (Creon) mycophenolate mofetil 500 mg tablet 500 mg PO BID 05/28/22 12/28/23 History prednisolone acetate 1 % eye 1 drp OPB UD 05/28/22 12/28/23 History drops,suspension simethicone 80 mg chewable tablet 80 mg PO DIRECTED PRN 05/28/22 12/28/23 History .gas/bloating fluticasone 250 mcg-salmeterol 50 1 inh inhalation BID #180 puffs 11/08/22 12/28/23 Rx mcg/dose blistr powdr for inhalation (Advair Diskus) cholecalciferol (vitamin D3) 25 10,000 unit PO QAM 11/29/22 12/28/23 History mcg (1,000 unit) capsule (Vitamin D3) magnesium oxide 400 mg PO DAILY 06/16/23 12/28/23 History ondansetron HCl 4 mg tablet 4 mg PO Q6H PRN Nausea And Vomiting 06/16/23 12/28/23 History albuterol sulfate 1.25 mg/3 mL 2.5 mg inhalation QID 09/30/23 12/28/23 History solution for nebulization furosemide 20 mg tablet 20 mg PO QAM 11/14/23 12/28/23 History albuterol sulfate 90 mcg/actuation 1 puff inhalation Q6 PRN Shortness 12/28/23 12/28/23 History aerosol inhaler Of Breath ferrous sulfate 325 mg (65 mg 325 mg PO QAM 12/28/23 12/28/23 History iron) tablet (Iron (ferrous sulfate)) krill 1,000 mg-omega-3 170 mg-dha 1 cap PO DAILY 12/28/23 12/28/23 History 50 mg-epa 80 yf-vqezpz-nktpz capsule (krill oil) triamcinolone acetonide 55 mcg 2 sprays intranasal QAM 12/28/23 12/28/23 History nasal spray aerosol (Nasacort) Patient History Medical History Hypomagnesemia MONTES (dyspnea on exertion) Nausea Decreased appetite Hypomagnesemia Decubitus skin ulcer Hypertension Scleroderma History of COVID-fall Poor intravenous access "took 2 hours to get IV in for last procedure, finally needed the [place] machine to get in place, had to be put in by anesthesia" Environmental and seasonal allergies History of cardioversion x several Chronic back pain Chronic diarrhea Gastroparesis On anticoagulant therapy xarelto daily Surgical History S/P debridement (01/28/23) Abdominal Wall Wound Debridement, Skin, Subcutaneous, Fascia 15x8 - Rasheed Ward MD, FACS > pt still has at present, follows with wound clinic History of benign breast biopsy History of dilatation and curettage History of total right knee replacement (TKR) History of colonoscopy History of esophagogastroduodenoscopy (EGD) Status post fine needle biopsy on thyroid--all benign History of tooth extraction full upper History of bilateral cataract extraction History of cardiac radiofrequency ablation (~10/2020) 2020 @ [facility] [place] History of hand surgery finger surgery > right History of hernia repair History of cholecystectomy History of surgery Mutiple GI procedures for blocked bowel. History of gastric bypass raymundo-en-y Family History Father Hearing loss Brother Hearing loss Other Cancer Heart disease Hypertension No family history of adverse response to anesthesia No family history of bleeding disorder Stroke Social History Smoking Status: Never smoker Second Hand Exposure: No; Do You Dip or Chew Tobacco: No; Tobacco Cessation Education Requested by Patient: No Hx Alcohol Use: No Hx Substance Use: No Preferred Language: Citizen [place] Communication Ability: Effective Lending Manager Required: No Beliefs That Will Affect Care: None marital status: Single Current Living Situation: Alone Current Living Situation Comment: lives home alone current occupational status: retired Other Information That Helps Us Care for You: No Feels Safe at Home: Yes Safety Concerns: Feels Safe At This Time Diet: other Diet Comment: gastroparesis caffeine: Yes Assistive Devices: Walker Review of Systems Review of Systems: All systems reviewed & are unremarkable except as noted in HPI & below Physical Exam Constitutional: WD/WN, vitals as above Eyes: Wears glasses ENMT: Ears: no hearing impairment and no external ear abnormality Mouth: no oropharynx abnormality Neck: trachea midline Respiratory: normal respiratory effort; no respiratory distress and no labored breathing Cardiovascular: Rate/Rhythm: regular rate and regular rhythm Gastrointestinal (Abdomen): Abdomen is soft and nondistended. There is no rebound tenderness or guarding or signs of peritonitis. There is minimal pain with palpation at the time of my exam. With a female nurse meat and seafood manager present I performed digital rectal exam. I could palpate significant amount of stool in the rectal vault. I was able to manually disimpact approximately golf ball sized amount of stool. Musculoskeletal: No calf tenderness Skin: no rashes Neurologic: moves all extremities Psychiatric: A+Ox3, euthymic affect Results & Data Vital Signs (Past 12 Hours) Vital Signs Temp Pulse Pulse Resp BP BP Pulse Ox 12/28/23 01:30 88 21 143/63 H 90 12/28/23 01:00 92 H 18 119/66 92 12/28/23 01:00 82 18 119/66 92 12/28/23 00:00 79 21 118/56 L 91 12/27/23 23:30 80 16 117/70 90 12/27/23 23:03 82 20 96 12/27/23 23:03 75 20 110/77 95 12/27/23 23:00 81 18 110/77 94 12/27/23 22:39 72 20 93 12/27/23 22:39 72 12/27/23 22:34 134/95 12/27/23 22:23 36.9 C 84 16 120/78 96 O2 Del Method 12/28/23 01:30 Room Air 12/28/23 01:00 Room Air 12/28/23 01:00 Room Air 12/28/23 00:00 Room Air 12/27/23 23:30 Room Air 12/27/23 23:03 Room Air 12/27/23 23:03 Room Air 12/27/23 23:00 Room Air 12/27/23 22:39 Room Air 12/27/23 22:39 12/27/23 22:34 12/27/23 22:23 Room Air PG Care Time/CCT Total # of Minutes Spent Total Time Spent with Patient: Total time spent is greater than 50% in coordination of care (as documented) at patient's floor/unit and/or counseling patient: Coding Level of Care Code 35535 INT INP/OBS CARE 3/75MIN Diagnoses Duodenal stricture K31.5
--- OUTSIDE RECORDS SUMMARY | 2023-12-28 03:33 | External Medical Summary | Continuity of Care Document ---
Author Name Unknown Organization [facility] [address] [address] Address [address] [place] [address] [phone] Care Team Providers Care Manager File Name Role Phone Marcia Clemente Primary Care Physician [phone] [id number] Date(s): 12/20/23 - 12/20/23 [facility] [address] [facility] [id number] [facility] [address] [place] [address] Encounter Diagnosis Right hip pain(Discharge Diagnosis) - 12/20/23 Discharge Disposition: Home or Self Care Attending Physician: MD Razo Paul K Referring Physician: DO Nguyen Jona M Allergies, Adverse Reactions, Alerts Substance Criticality Severity Reaction Reaction Severity Status ibuprofen GI Pain Active gold sodium thiomalate unknown Active Bextra Swelling Active Lyrica anxiety Active naproxen GI Pain Active metoclopramide Unable to assess criticality Severe elevated LFTs Active medtronidazole containing compounds stomach upset Active Zocor passed out lightheaded Active Celebrex Confusion GI Upset Active Percocet 7.5/325 GI Pain Act evangelina Assessment and Plan Extracted from: Title:Win Razo Author:Shira Malcolm te:12/20/23 Impression: 68 year old fema le with right buttock pain, bilateral leg swelling and weakness Plan: - Referral given for Yary Rojo if pain does not improve - Prescription given for formal PT - No surgery indicated - Follow-up as needed The patient understood all my instructions and explanations; all their questions were satisfactorily addressed. Immunizations Given and Recorded Vaccine Date Status Refusal Reason SARS COVID Vaccine Unspecified 12/08/22 Recorded RSV vaccine preF3, recombinant 10/20/22 Recorded influenza virus vaccine, inactivated 12/02/21 Edson rded influenza virus vaccine, inactivated 11/13/20 Edson rded influenza virus vaccine, inactivated 12/03/19 Edson rded influenza virus vaccine, inactivated 12/03/19 Edson rded influenza virus vaccine, inactivated 11/16/18 Give n SARS-CoV-2 mRNA (tomikin 5y-11y) 12/02/21 Edson rded SARS-CoV-2 (COVID-19) mRNA [...] 2020-11-14: Historical information-source unspecified 4Result Comment: [facility] 5Result Comment: 2020-01-31: Historical information-source [...] 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, Brand Medically Necessary, Pharmacy: [id number] Start Date: 04/06/23 Stop Date: 03/31/24 Status: Ordered albuterol 1.25 mg/3 mL (0.042%) inhalation solution Start: 09/22/23 2:48:00 PM EDT, 3 mL, NEB, qid, Disp# 25 each, Refills: 1, Pharmacy: [id number] Start Date: 09/22/23 Status: [...] 1 CAPSULE BY MOUTHTHREE TIMES DAILY, Pharmacy: [id number] Start Date: 05/10/23 Status: [...] each, Use spacer whenever using inhaler, Pharmacy: [id number] Start Date: 12/14/21 Status: Ordered lactase Start: 10/15/15 10:34:00 AM EDT, PO, ac, with meals, PRN: As needed Start Date: 10/15/15 Status: Ordered Lasix 20 mg oral tablet Start: 11/08/23 11:16:00 AM EDT, 1 tab, PO, Daily, Disp# 30 tab, Refills: 2, Pharmacy: [id number] Start Date: 11/08/23 Status: Ordered magnesium oxide Start: 08/12/22 12:50:00 PM EDT, daily Start Date: 08/12/22 Status: Ordered Metoprolol Succinate ER 100 mg oral tablet, extended release Start: 05/12/23 1:31:00 PM EDT, See Instructions, Disp# 90 tab, Refills: 3, TAKE 1 TABLET BY MOUTH ONCE DAILY, Pharmacy: [id number] Start Date: 05/12/23 Status: Ordered mycophenolate mofetil 500 mg oral tablet Start: 01/28/22 10:50:00 AM EST, 2 tab, PO, Daily Start Date: 01/28/22 Status: Ordered mycophenolate mofetil 500 mg oral tablet Start: 12/06/23 2:19:00 PM EDT Start Date: 12/06/23 Status: Ordered Nasacort Allergy 24HR Start: 03/04/15 3:19:00 PM EST, 2 spray, intranasal, Daily, PRN: allergy symptoms Start Date: 03/04/15 Status: Ordered Nature's Bounty Red Krill Oil 500 mg oral capsule Start: 06/23/22 3:22:00 PM EDT Start Date: 06/23/22 Status: Ordered omeprazole 40 mg oral delayed release capsule Start: 05/10/23 1:21:00 PM EDT, 1 cap, PO, Daily, Disp# 90 cap, Refills: 3, Pharmacy: [id number] Start Date: 05/10/23 Stop Date: 05/04/24 Status: Ordered Prednisol 1% ophthalmic solution Start: 12/04/19 2:04:00 PM EDT, both eyes, both eyes qAM, left eye qPM. Start Date: 12/04/19 Status: Ordered spironolactone 25 mg oral tablet Start: 03/28/23 9:56:00 AM EST, 1 tab, PO, Daily, Disp# 90 tab, Refills: 3, Pharmacy: [id number] Start Date: 03/28/23 Status: [...] qPM, Disp# 90 tab, Refills: 3, Pharmacy: [id number] Start Date: 10/18/23 Status: Ordered Zofran 4 mg oral tablet Start: 05/10/23 1:21:00 PM EDT, 1 tab, PO, Daily, Disp# 90 tab, Refills: 3, PRN: as needed for nausea/vomiting, Pharmacy: [id number] Start Date: 05/10/23 Stop Date: 05/04/24 Status: Ordered ZyrTEC 10 mg oral tablet Start: 08/16/16 11:19:00 AM EDT, 1 tab, PO, Daily Start Date: 08/16/16 Status: Ordered Mental Status 12/20/23 Barriers to Learning one year Acuity of illness, Vision impairment, Other: wears eye glasses, and uses a walking cane Mandatory Health Literacy Documentation Yes Health Literacy Communication Barriers N ever Primary Language Pakistani Problem List Condition Confirmation Course Effective Dates [...] weight and uncontrolled DM 2sees pulmonary - [facility] 3PFT 04/04/17 4Has had reclast from 2014 to 2019 5Was on Boniva - [id number] - Improved bone density and stopped med. After bowel surgery - BMD dropped - Started on reclast [phone]. 6Dr Arabella - [facility] 7last biopsy - 2016 - normal Diagnosis Diagnosis Type Effective Dates Health Status Cl inical Service Informant Right hip pain Discharge Diagnosis 12/20/23 Procedures Procedure Date Related Diagnosis Body Site [...] outside mammograms dated 02/14/2018, 08/12/2017, 12/07/2016 from [facility] have become available comparison. Compared to [...] study 32x2 and a surgery for infection Social History Social History Type Response Smoking Status Never smoked cigaret calli Sex Female Sex Representation Female (finding) Ortho Outpt Note * MD Razo Paul K: MODIFY MD Razo Paul K: MODIFY, MODIFY Event Display: Ortho Outpt Note Authored Date: Primary Care Provider MD Clemente Madhavi Referring Provider DO Nguyen Jona M Chief Complaint right hip pain History of Present Illness [id number] yearoldFemalewho presents today with her sister forright hip pain. She was in thehospital1 month ago for leg weakness, where she stayed for about 5 days. [facility] She was told her protein and iron levels were extremely low, which caused her leg swelling. Her swelling has since gone down.She has improved her movement but stillnotes weakness. She has pain in her right buttock, which she describes as dull and pulsing. Sideways movements induce pain. No numbness or tingling. No prior injury. She received an injection in her left buttock, and says this is similar feeling.Her sister notes she is able to walk,but very slowly. Review of Systems A 14 point review of systems isavailable in the EMR. Physical Exam Focusing on the patient'sright lower extremity: Sensation intact to light touch L3 to S1 dermatomes Thickening of skin Tense feeling from swelling in bilateral lower extremities ROM: Flexion 100/ Abduction 30/ External rotation 45/ Internal rotation 20 Unable to do straight leg raise test +Log roll +Scour test -Impingement test + TESSIE test -Tenderness over greatertrochanter +Tenderness around L2-3 + Tenderness over gluteus medius muscle +SI joint tenderness Diagnostic Results AP Pelvis,False Profile,Cross TableLateralviews of theright hipobt[facility] show no fractures or dislocation.Ossification of greater trochanter. 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 Assessment/Plan Impression: 68 year old female with right buttock pain, bilateral leg swelling and weakness Plan: - Referral given for Yary Rojo if pain does not improve - Prescription given for formal PT - No surgery indicated - Follow-up as needed The patient understood all my instructions and explanations; all their questions were satisfactorily addressed. Attestation I,Shira Malcolm,scribing for and in the presence of, Win Razo, on this date,12/20/2023 10:19:28. Problem List/Past Medical History Ongoing Allergic rhinitis [...] mcg/inh MDI), 2 puff, inhaled, qid, PRN [id number](Beano), 450 unit, PO, tid, PRN calcium carbonate(Tums [...] mg= 1 tab, PO, Daily, 2 refills inhalation accessory(inhaler spacer), See Instructions lactase, PO, ac, PRN magnesium oxide metoprolol(Metoprolol Succinate ER 100 mg oral tablet, extended release), See Instructions, 3 refills multivitamin with minerals(Centrum Silver oral tablet), 1 tab, PO, Daily mycophenolate mofetil(mycophenolate mofetil 500 mg oral tablet), 1000 mg= 2 tab, PO, Daily mycophenolate mofetil(mycophenolate mofetil 500 mg oral tablet) omega-3 polyunsaturated fatty acids(InCytu's Bounty Red Krill Oil 500 mg oral [...] No Risk Employment/School Status: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 Grew up in [place], Moving from [place], [place]. 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 Tobacco - No Risk Family History Blood [...] virus vaccine, inactivated 12/02/2021 Recorded SARS-CoV-2 mRNA (kaleb 5y-11y) 12/02/2021 Recorded SARS-CoV-2 (COVID-19) mRNA BNT-162b2 vax 07/01/2021 Recorded pneumococcal 23-valent vaccine 12/31/2020 Recorded Comments : [facility] influenza virus vaccine, inactivated 11/13/2020 [...] Due Adult Social Determinants of Health Screening due12/20/23Unknown Frequency Falls Plan of Care due12/20/23Unknown Frequency Shingles Vaccine due12/20/23One-time only Due In Future Medicare Annual Wellness Visit not due until10/05/24and every 1year Satisfied(in the past 1 year) Satisfied Body Mass Index on12/20/23.Satisfied by JENA Erwin [place] Breast Cancer Screening on08/11/23.Satisfied by MD Clemente Madhavi Lipid Screening on11/01/23.Satisfied by Contributor[employer]system, [employer] Medicare Annual Wellness Visit on10/06/23.Satisfied by MD Clemente Madhavi Electronic Signature on File Electronically Reviewed/Signed by: Shira Malcolm Author Signature Dt/Tm:12/20/2023 10:20 AM Electronically Reviewed/Signed by: Win Razo MD Cosigner Signature Dt/Tm: 12/20/2023 12:58PM Division of Sports Medicine MR Patient Care team information Care Team Personnel Name: NEELIMA Solis, Shelia Garcia Position: Physician Asst Exmpt - Family Med Member Role: Lifetime Relationship Address: [facility] [place] [address] [place] Name: GONZALO Lee Melvin J Position: Nurse Pract - Card Electrophys Member Role: Lifetime Relationship Address: [address] [place] [address] [place] Name: GONZALO Malone Stacey L Position: Nurse Pract - Cardiology Member Role: Lifetime Relationship Address: [address] [place] [address] [place] Name: Romina Sanchez Alisha Position: Pharmacist Member Role: Pharmacy - Lifetime Name: GONZALO Briscoe Michelle C Position: Nurse Pract - Card Electrophys Member Role: Lifetime Relationship Address: [address] [place] [address] [place] Name: MD Clemente Madhavi Position: Physician - Family Med Member Role: Primary Care Provider Address: [address] [place] [address] [place] Name: Romina Frankel Brittani Position: Pharmacist Member Role: Pharmacy - Lifetime Name: GONZALO Vickers Bonnie D Position: Nurse Pract - Surgery MIS Member Role: Lifetime Relationship Address: [address] [place] [address] [place] Care Team Related Persons Name: TR LAMBERT Name: ALEXANDER AGUSTIN"
--- OUTSIDE RECORDS SUMMARY | 2023-12-28 03:33 | External Medical Summary | Continuity of Care Document ---
Author Name Unknown Organization [facility] 0 [facility] [address] [place] [address] [phone] Care Team Providers Care Wire Transfer Clerk Name Role Phone Marcia Clemente Primary Care Physician [phone] Encounter [facility] [id number] Date(s): 12/20/23 - 12/20/23 [facility] 0 [facility] 207 [facility] [address] [facility] [address] [place] [address] [place] [phone] Encounter Diagnosis Iron deficiency(Discharge Diagnosis) - 12/20/23 Hypoproteinemia(Discharge Diagnosis) - 12/20/23 Body mass index [BMI] 28.0-28.9, adult(Discharge Diagnosis) - 12/20/23 Vitamin D deficiency(Discharge Diagnosis) - 12/20/23 Elevated ALT measurement(Discharge Diagnosis) - 12/20/23 Insomnia(Discharge Diagnosis) - 12/20/23 Discharge Disposition: Home or [...] evangelina Assessment and Plan Extracted from: Title:Lab f/u Author:DO Dunbar Sophia El izabeth Date:12/20/23 1.Iron deficiency - chronic, at goal - goal: resolved anemia, increase energy levels - pt no longer anemic, iron and ferritin improving - recommend continuation of iron supplementation - will recheck iron, CBC, and ferritin in 1 mth 2.Hypoproteinemia - chronic, not at goal - goal: increase protein, decrease fluid retention - encouraged continued supplementation of protein in the diet - recommended continuation of in home PT/OT; if pt needs to extend these services, encouraged pt to reach out for another referral - f/u with blood work (CMP)in 1 mth 3.Vitamin D deficiency - chronic, not at goal - goal: normal vitamin D - recommend continued supplementation - will recheck in 1 mth 4.Elevated ALT measurement - chronic, not at goal - goal: diagnostic clarity - will repeat CMP in 1 mth to trend ALT/AST - liver US ordered for further evaluation - f/u in 1 mth Insomnia- discussed medications for sleep aid; however, d/t risk of falling will defer at this time Immunizations Given and Recorded Vaccine Date Status [...] 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, Brand Medically Necessary, Pharmacy: [id number] Start Date: 04/06/23 Stop Date: 03/31/24 Status: Ordered albuterol 1.25 mg/3 mL (0.042%) inhalation solution Start: 09/22/23 2:48:00 PM EDT, 3 mL, NEB, qid, Disp# 25 each, Refills: 1, Pharmacy: [id number] Start Date: 09/22/23 Status: [...] 1 CAPSULE BY MOUTHTHREE TIMES DAILY, Pharmacy: [id number] Start Date: 05/10/23 Status: [...] each, Use spacer whenever using inhaler, Pharmacy: [id number] Start Date: 12/14/21 Status: Ordered lactase Start: 10/15/15 10:34:00 AM EDT, PO, ac, with meals, PRN: As needed Start Date: 10/15/15 Status: Ordered Lasix 20 mg oral tablet Start: 11/08/23 11:16:00 AM EDT, 1 tab, PO, Daily, Disp# 30 tab, Refills: 2, Pharmacy: [facility] Start Date: 11/08/23 Status: Ordered magnesium oxide Start: 08/12/22 12:50:00 PM EDT, daily Start Date: 08/12/22 Status: Ordered Metoprolol Succinate ER 100 mg oral tablet, extended release Start: 05/12/23 1:31:00 PM EDT, See Instructions, Disp# 90 tab, Refills: 3, TAKE 1 TABLET BY MOUTH ONCE DAILY, Pharmacy: [id number] Start Date: 05/12/23 Status: [...] Daily, Disp# 90 cap, Refills: 3, Pharmacy: [id number] Start Date: 05/10/23 Stop Date: 05/04/24 Status: Ordered Prednisol 1% ophthalmic solution Start: 12/04/19 2:04:00 PM EDT, both eyes, both eyes qAM, left eye qPM. Start Date: 12/04/19 Status: Ordered spironolactone 25 mg oral tablet Start: 03/28/23 9:56:00 AM EST, 1 tab, PO, Daily, Disp# 90 tab, Refills: 3, Pharmacy: [facility] Start Date: 03/28/23 Status: [...] qPM, Disp# 90 tab, Refills: 3, Pharmacy: [facility] Start Date: 10/18/23 Status: Ordered Zofran 4 mg oral tablet Start: 05/10/23 1:21:00 PM EDT, 1 tab, PO, Daily, Disp# 90 tab, Refills: 3, PRN: as needed for nausea/vomiting, Pharmacy: [id number] Start Date: 05/10/23 Stop [...] Literacy Communication Barriers N ever Primary Language Japanese Problem List Condition Confirmation Course Effective Dates [...] weight and uncontrolled DM 2sees pulmonary - [facility] 3PFT 04/04/17 4Has had reclast from 2014 to 2019 5Was on Boniva - [phone] - Improved bone density and stopped med. After bowel surgery - BMD dropped - Started on reclast [phone]. 6Dr [facility] 7last biopsy - 2016 - normal Diagnosis Diagnosis Type Effective Dates Health Status Clinical Service Informant Hypoproteinemia Discharge Diagnosis 12/20/23 Non-Specified Iron deficiency Discharge Diagnosis 12/20/23 Non-Specified Body mass index [BMI] 28.0-28.9, adult Discharge Diagnosis 12/20/23 Non-Specified Vitamin D deficiency Discharge Diagnosis 12/20/23 Non-Specified Elevated ALT measurement Discharge Diagnosis 12/20/23 Non-Specified Insomnia Discharge Diagnosis 12/20/23 Non-Specified Procedures Procedure Date Related Diagnosis Body [...] recent to oldest [Reference Range]: 1 Height 166.5 cm (12/20/23 7:58 AM) Patient Weight 78 kg (12/20/23 7:58 AM) Body Mass Index 28.14 kg/m2 (12/20/23 7:58 AM) Heart Rate 79 bpm (12/20/23 7:58 AM) Respiratory Rate 16 br/min (12/20/23 7:58 AM) Blood Pressure 112/68mmHg (12/20/23 7:58 AM) Cuff Pulse Pressure 44 mmHg (12/20/23 7:58 AM) Social History Social History Type Response Smoking Status Never smoked cigaret calli Sex Female Sex Representation Female (finding) FCM Outpt Note * MD Blum Dongsheng: MODIFY MD Blum Dongsheng: MODIFY, MODIFY Event Display: FCM Outpt Note Authored Date: Chief Complaint 2 month f/u History of Present Illness Pt is a 68 yo female with PMH of scleroderma, asthma, afib,hypoproteinemia, and iron deficiency presenting for a follow up. Recent lab work showed improved anemia, iron, and protein levels. She is doing PT 2x and OT 2x per week. She has been having trouble sleeping over the last few nights. She typically takes melatonin butthis hasn't helped much. Review of Systems As per HPI Physical Exam Vitals & Measurements HR:79(Monitored) RR:16 BP:112/68 SpO2:93% HT:166.5cm WT:78kg WT:78.000kg(Dosing) BMI:28.14 PHQ2 Data(Data Documented on:12/20/2023 07:57) Emotional health assessment NEGATIVE Assessment/Plan 1.Iron deficiency - chronic, at goal - goal: resolved anemia, increase energy levels - pt no longer anemic, iron and ferritin improving - recommend continuation of iron supplementation - will recheck iron, CBC, and ferritin in 1 mth 2.Hypoproteinemia - chronic, not at goal - goal: increase protein, decrease fluid retention - encouraged continued supplementation of protein in the diet - recommended continuation of in home PT/OT; if pt needs to extend these services, encouraged pt toreach out for another referral - f/u with blood work (CMP)in 1 mth 3.Vitamin D deficiency - chronic, not at goal - goal: normal vitamin D - recommend continued supplementation - will recheck in 1 mth 4.Elevated ALT measurement - chronic, not at goal - goal: diagnostic clarity - will repeat CMP in 1 mth to trend ALT/AST - liver US ordered for further evaluation - f/u in 1 mth Insomnia- discussed medications for sleep aid; however, d/t risk of falling will defer at this time Attestation Preceptor Note: I saw the patient and confirmed the rizzo portions of the history and physical exam. Discussed with the resident physician and agree with the above impression and plan. Advised to have close f/u with us and call with any concerns. 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 Grew up in [place], Moving from [place], [place]. 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 Tobacco - No Risk Family History Blood [...] MD Clemente Madhavi Lipid Screening on11/01/23.Satisfied by [employer], [employer] Medicare Annual Wellness Visit on10/06/23.Satisfied by MD Clemente Madhavi Electronic Signature on File Electronically Reviewed/Signed by: Isela Dunbar DO Author Signature Dt/Tm:12/20/2023 08:30 AM Resident Department of Family Medicine Electronically Reviewed/Signed by: Baldo Blum MD Cosigner Signature Dt/Tm: 12/20/2023 08:42 AM Department of Family Medicine SES Patient Care team information Care Team Personnel Name: NEELIMA Solis, Shelia Garcia Position: Physician Asst Exmpt - Family Med Member Role: Lifetime Relationship Address: [address] [place] [address] [place] Name: GONZALO Lee Melvin J Position: Nurse Pract - Card Electrophys Member Role: Lifetime Relationship Address: [address] [place] [address] [place] Name: GONZALO Malone Stacey L Position: Nurse Pract - Cardiology Member Role: Lifetime Relationship Address: [address] [place] [address] [place] [address] [place] Name: Romina Sanchez Alisha Position: Pharmacist Member Role: Pharmacy - Lifetime Name: GONZALO Briscoe Michelle C Position: Nurse Pract - Card Electrophys Member Role: Lifetime Relationship Address: [address] [place] [address] [place] [address] [place] Name: MD Clemente Madhavi Position: Physician - Family Med Member Role: Primary Care Provider Address: [address] [place] [address] [place] Name: Romina Frankel Brittani Position: Pharmacist Member Role: Pharmacy - Lifetime Name: GONZALO Vickers Bonnie D Position: Nurse Pract - Surgery MIS Member Role: Lifetime Relationship Address: [address] [place] [address] Care Team Related Persons Name: TR LAMBERT Name: ALEXANDER AGUSTIN"
[2023-12-28] MEDS ORDERED: ALBUTEROL HFA 8 GM INHALER INH PRN (03:55)
[2023-12-28] MEDS: LACTATED RINGER'S 1,000 ML IV SCH (04:05)
[2023-12-28] MEDS: SOD PHOSPHATE/SOD BIPHOSPHATE ENEMA 132 ML BTL PR ONE (06:01)
[2023-12-28] MEDS: SOD PHOSPHATE/SOD BIPHOSPHATE ENEMA 132 ML BTL PR STA (06:11)
--- NOTE | 2023-12-28 06:53 | XRay Report ---
XR chest 1V portable CLINICAL HISTORY: const TECHNIQUE: Single frontal radiograph of the chest was obtained. Comparison: Comparison is made to chest radiograph 11/14/2023 FINDINGS: No lines and tubes are seen. Calcified aortic knob is seen. Lungs are underinflated. Interstitial thi ckening is seen. No evidence of pleural effusion or pneumothorax. IMPRESSION: Low lung volumes are seen with atelectasis and mild interstitial thickening. ACT 112: Negative or not required by law. Electronically signed by: Nico Denis M.D. 12/28/2023 6:52 AM
--- NOTE | 2023-12-28 06:55 | XRay Report ---
XR KUB/Abdomen 1 view CLINICAL HISTORY: conost TECHNIQUE: 1 view of the abdomen was obtained. Comparison: None available at the time of this dictation. FINDINGS: Lung bases are unremarkable. Degenerative changes are seen in the visualized skeleton. The bowel gas pattern is nonobstructive. Large stool burden is seen without evidence of inspissated stool in the re ctum. IMPRESSION: There is a large stool burden without evidence of inspissated stool. ACT 112: Negative or not required by law. Electronically signed by: Nico Denis M.D. 12/28/2023 6:54 AM
[2023-12-28] MEDS: FUROSEMIDE 20 MG TAB PO SCH (07:36)
[2023-12-28] MEDS: PANCREAZE (LIPASE 4,200U) CAP PO SCH (07:36)
[2023-12-28] MEDS: MYCOPHENOLATE MOFETIL 250 MG CAP PO SCH (07:36)
[2023-12-28] MEDS: SPIRONOLACTONE 25 MG TAB PO SCH (07:36)
[2023-12-28] MEDS: CETIRIZINE HCL 10 MG TABLET PO SCH (07:36)
[2023-12-28] MEDS: FLUTICASONE PROPIONATE NA SPR 16 GM BTL SCH (07:37)
[2023-12-28] MEDS: FLUTICASONE/VILANTEROL 200/25MCG 14 PUFFS/INHALER INH SCH (07:37)
[2023-12-28] MEDS: PANTOprazole 40 MG/10 ML SYR IV SCH (07:37)
[2023-12-28] MEDS: prednisoLONE acetate 1% OP SUSP 5 ML BTL OPB SCH (07:38)
[2023-12-28 08:09] LABS: Hematocrit (blood only) 32.8 % (37.0-47.0); Hemoglobin 11.4 g/dl (12.0-16.0); Mean Corpuscular Hemoglobin 32.7 pg (25.0-34.0); Mean Corpuscular Hgb Conc 34.8 g/dL (32.0-36.0); Platelet Count 238 K/uL (130-400); RDW Coefficient of Variation 14.6 % (11.5-14.5); RDW Standard Deviation 50.8 fL (36.4-46.3); Red Blood Count 3.49 M/uL (4.20-5.40); White Blood Count 16.59 K/ul (4.8-10.8)
[2023-12-28 08:32] LABS: Alanine Aminotransferase 61 U/L (7-52); Albumin Level 2.5 gm/dl (3.4-5.0); Alkaline Phosphatase 133 U/L (34-104); Anion Gap 9 (3-11); Aspartate Aminotransferase 68 U/L (13-39); Bilirubin,Total 0.8 mg/dl (0.2-1.0); Blood Urea Nitrogen 12 mg/dl (6-23); Calcium 7.5 mg/dl (8.6-10.3); Carbon Dioxide 33 mmol/L (21-32); Chloride 87 mmol/L (98-107); Creatinine Clr Calc Pharmacy 287.7 ml/min; Globulin 2.4 gm/dl (2.5-4.0); Glucose 73 mg/dl (70-99(Fasting)); Potassium 4.2 mmol/L (3.5-5.1); Sodium 129 mmol/L (136-145); Total Protein 4.9 gm/dl (6.0-8.3)
--- NOTE | 2023-12-28 10:44 | XRay Report ---
KUB CLINICAL HISTORY: worsening vitals, white count COMPARISON STUDY: KUB December 27, 2023. CT of the abdomen and pelvis performed earlier today. FINDINGS: Contrast within the collecting systems, ureters and bladder is from recent contrast-enhance d CT. Bowel gas pattern is normal. There is a moderate to large amount of stool within the colon and rectum. There is no evidence for free air on supine exam. Status post cholecystectomy. IMPRESSION: 1. No radiographic evidence for a bowel obstruction. 2. Moderate to large amount of stool within the colon and rectum. ACT 112: Negative or not required by law. Electronically signed by: George Scott M.D. 12/28/2023 10:42 AM
[2023-12-28] MEDS: ALBUTEROL 0.083% NEBU SOLN 3 ML VIAL INH SCH (11:12)
--- NOTE | 2023-12-28 14:01 | Hospitalist Progress Note ---
Date of Service December 28, 2023 Assessment & Plan (1) Constipation: Plan: Pt is a 68 yo female with PMH of scleroderma (with associated pulmonary fibrosis), afib, and HTN presenting d/t constipation. Constipation vs. SBO - pt notes last BM a few days ago and now with nausea, abdominal pain, and lack of appetite - KUB showed large, dilated loops of bowel; CTAP showing transition point in duodenum with concern for stricture vs. stenosis - Subsequent KUB without evidence of obstruction but with remaining stool burden - pt with significant past surgical hx of gastric bypass and multiple surgical interventions for bowel blockages - Gen surg recommending no further intervention, may start oral bowel regimen now that patient is passing stool - will try clears tonight, nutritional evaluation ordered Hyponatremia - Na 128 on admission, improved to 129 with fluids - suspect secondary to hypovolemia in the setting of poor PO intake - urine Na, osmolality and serum osmolality ordered - Appears Hypotonic, hypervolemic hyponatremia - Will attempt spot dose of Lasix and monitor vitals closely - trend labs Transaminitis - known fatty liver re-demonstrated on CT - mild ascites present - chronically elevated INR UTI - pt notes increased urinary frequency over the last few days - pt with leukocytosis to 12, UA showing 1+ blood, 3+ LE, 4+ bacteria; urine culture pending - s/p ceftriaxone in the ER; will continue upon admission Afib - continue home xarelto, metoprolol HTN - continue home spironolactone Scleroderma with associated pulmonary fibrosis - pt follows with rheum as an outpatient - continue home inhalers/medications Diet: NPO, LR at 100 mL/hr Code: full VTE ppx: home xarelto Dispo: admit to med/surg (2) Hyponatremia: (3) Pulmonary fibrosis: (4) Scleroderma: (5) Urinary tract infection: Admission and Anticipated Discharge Date Admission Date: December 28, 2023 Supervising Physician Co-Signing Physician Notes I personally examined the patient and verified rizzo points of history and exam, discussed case, and agree with decision making and plan documented by Dr. Carranza. Patient presenting with concern of small bowel obstruction, CT scan with high stool burden, transition point in duodenum concerning for stenosis or stricture. Patient was manually disimpacted in addition to having an enema which resulted in a small bowel movement, she is having flatus as well. On exam, patient appears anasarcic, heart RRR, no labored breathing or abnormal breath sounds appreciated, mildly tender in all quadrants of abdomen, bowel sounds present. Leukocytosis improving, patient remains on ceftriaxone, urine culture pending. Will monitor closely. Subjective Patient seen and evaluated at bedside this morning. No acute events overnight. Patient now meeting sepsis criteria. Stating that she has moved her bowels. Repeat KUB without evidence of obstruction. Review of Systems Review of Systems: reviewed, per HPI Physical Exam Physical Exam: Constitutional: ill-appearing, no acute distress HEENT: NCAT, no conjunctival injection CV: appears clinically well perfused, appears very volume overloaded Resp: no increased work of breathing GI: TTP left side predominance MSK: no gross deformities appreciated Skin: warm, dry, no rash appreciated Neuro: somnolent Results & Data Results & Data Vital Signs (Past 12 Hours) Vital Signs Temp Pulse Pulse Resp BP BP Pulse Ox 12/28/23 11:13 100 H 16 95 12/28/23 07:25 36.4 C L 110 H 16 126/68 92 12/28/23 03:39 36.5 C 97 H 18 131/83 93 12/28/23 03:00 90 21 115/66 91 12/28/23 02:42 84 12/28/23 02:40 94 H 16 123/77 94 12/28/23 02:00 98 H 20 116/64 90 O2 Del Method 12/28/23 11:13 Room Air 12/28/23 07:25 Room Air 12/28/23 03:39 Room Air 12/28/23 03:00 Room Air 12/28/23 02:42 12/28/23 02:40 Room Air 12/28/23 02:00 Room Air Resident Activity Tracking Resident Involvement: Resident Care Provided Care Provided: Adult Hospital Medicine (5) Urinary tract infection Hematuria presence: without hematuria Urinary tract infection type: site unspecified Qualified Code(s): N39.0 - Urinary tract infection, site not specified
[2023-12-28 15:40] LABS: Basophils # (auto) 0.04 K/uL (0.00-0.20); Basophils % (auto) 0.3 %; Hematocrit (blood only) 33.3 % (37.0-47.0); Hemoglobin 11.5 g/dl (12.0-16.0); Immature Granulocytes # (auto) 0.06 K/uL (0.01-0.20); Immature Granulocytes % (auto) 0.5 %; Lymphocytes # (auto) 1.04 K/uL (1.20-3.40); Lymphocytes % (auto) 8.7 %; Mean Corpuscular Hemoglobin 33.3 pg (25.0-34.0); Mean Corpuscular Hgb Conc 34.5 g/dL (32.0-36.0); Mean Corpuscular Volume 96.5 fL (80.0-100.0); Mean Platelet Volume 10.9 fL (9.4-12.4); Monocytes # (auto) 0.67 K/uL (0.11-0.59); Monocytes % (auto) 5.6 %; Neutrophils # (auto) 10.09 K/uL (1.40-6.50); Neutrophils % (auto) 84.9 %; Platelet Count 186 K/uL (130-400); RDW Coefficient of Variation 15.1 % (11.5-14.5); RDW Standard Deviation 53.3 fL (36.4-46.3); Red Blood Count 3.45 M/uL (4.20-5.40)
[2023-12-28] MEDS: RIVAROXABAN 20 MG TAB PO SCH (15:54)
[2023-12-28 16:07] LABS: Alanine Aminotransferase 57 U/L (7-52); Albumin Globulin Ratio 1.1 (0.9-2); Albumin Level 2.5 gm/dl (3.4-5.0); Alkaline Phosphatase 121 U/L (34-104); Anion Gap 9 (3-11); Aspartate Aminotransferase 58 U/L (13-39); Bilirubin,Total 0.8 mg/dl (0.2-1.0); Blood Urea Nitrogen 11 mg/dl (6-23); C Reactive Protein < 0.50 mg/dl (0-0.5); Calcium 7.3 mg/dl (8.6-10.3); Carbon Dioxide 34 mmol/L (21-32); Chloride 86 mmol/L (98-107); Creatinine Clr Calc Pharmacy 287.7 ml/min; Globulin 2.3 gm/dl (2.5-4.0); Glucose 67 mg/dl (70-99(Fasting)); Potassium 3.1 mmol/L (3.5-5.1); Sodium 129 mmol/L (136-145); Total Protein 4.8 gm/dl (6.0-8.3)
[2023-12-28] MEDS ORDERED: POTASSIUM CHLORIDE / WTR 10 MEQ/100 ML PLCT IV SCH (17:15)
[2023-12-28] MEDS: POTASSIUM CHLORIDE CRTAB 20 MEQ TABCR PO ONE (17:31)
[2023-12-28] MEDS: ALBUMIN 25% 25 GM/100 ML VIAL IV SCH (19:27)
[2023-12-28] MEDS: METOPROLOL SUCC 50MG EXT REL TAB PO SCH (20:33)
[2023-12-28] MEDS: HYDROXYCHLOROQUINE SULFATE 200 MG TAB PO SCH (20:33)
[2023-12-28] MEDS: prednisoLONE acetate 1% OP SUSP 5 ML BTL OPL SCH (20:33)
[2023-12-28 23:18] LABS: Calcium 7.5 mg/dl (8.6-10.3); Creatinine Clr Calc Pharmacy 287.7 ml/min
[2023-12-29] MEDS: cefTRIAXone SODIUM 2,000 MG/50 ML BAG IV SCH (01:31)
[2023-12-29] MEDS: MELATONIN 3 MG TAB PO PRN (03:05)
[2023-12-29] MEDS: POTASSIUM CHLORIDE CRTAB 20 MEQ TABCR PO STA (03:05)
[2023-12-29] MEDS: CALCIUM CARBONATE 500 MG CHEWABLE TAB PO PRN (03:05)
[2023-12-29 08:56] LABS: Albumin Level 2.9 gm/dl (3.4-5.0); Anion Gap 6 (3-11); Bilirubin,Total 0.9 mg/dl (0.2-1.0); Calcium 7.7 mg/dl (8.6-10.3); Carbon Dioxide 38 mmol/L (21-32); Chloride 89 mmol/L (98-107); Magnesium 1.5 mg/dl (1.7-2.4); Potassium 4.1 mmol/L (3.5-5.1); Sodium 133 mmol/L (136-145)
[2023-12-29 08:58] LABS: Hematocrit (blood only) 26.8 % (37.0-47.0); Hemoglobin 9.4 g/dl (12.0-16.0); Mean Corpuscular Hemoglobin 32.9 pg (25.0-34.0); Mean Corpuscular Hgb Conc 35.1 g/dL (32.0-36.0); Mean Corpuscular Volume 93.7 fL (80.0-100.0); Platelet Count 185 K/uL (130-400); RDW Coefficient of Variation 15.1 % (11.5-14.5); RDW Standard Deviation 51.9 fL (36.4-46.3); Red Blood Count 2.86 M/uL (4.20-5.40); White Blood Count 8.12 K/ul (4.8-10.8)
[2023-12-29 09:00] LABS: Alanine Aminotransferase 42 U/L (7-52); Albumin Globulin Ratio 1.6 (0.9-2); Alkaline Phosphatase 96 U/L (34-104); Aspartate Aminotransferase 43 U/L (13-39); Blood Urea Nitrogen 8 mg/dl (6-23); Creatinine Clr Calc Pharmacy 287.7 ml/min; Globulin 1.8 gm/dl (2.5-4.0); Glucose 69 mg/dl (70-99(Fasting)); Total Protein 4.7 gm/dl (6.0-8.3)
--- NOTE | 2023-12-29 12:29 | Nephrology Consultation ---
Date of Consultation December 29, 2023 Assessment & Plan (1) Anasarca: * Anasarca is likely a manifestation of hypoalbuminemia and 3rd spacing of volume * Will order urinalysis w/ UACR, however, suspect hypoalbuminemia has been a longstanding manifestation of malabsorption * Recommend IV albumin to maintain serum albumin > 4.0 * Continue outpatient therapy of spironolactone and furosemide. Avoid aggressive diuresis as fluid is in interstitial space * Monitor UO, BMP, serum albumin * High BUN to creatinine ratio is indicative of low creatinine from low muscle mass and poor nutritional protein absorption (2) Scleroderma: * Recommend consultation w/ [facility] gastroenterology (patient is known to them). May need to reassess for SIBO. May need to consider dietary changes to improve protein status History of Present Illness Reason for Consultation: Anasarca in the setting of elevated BUN to creatinine ratio Attending Physician: Julissa Pan, DO History of Present Illness Ms. Mcnair is a 68-year-old white female who is seen at the request of [facility] hospitalist service for evaluation of anasarca in the setting of elevated BUN to creatinine ratio. Information for the HPI is obtained from direct patient interview and review of the EMR. HPI summarized as follows: Ms. Mcnair denies any prior kidney disease. She has never undergone nephrology evaluation in the past. She reports a history of scleroderma, cholecystectomy and Raymundo-en-Y gastric bypass surgery. 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 This has been managed by [facility] gastroenterology. She has been on a low FODMAP diet and cycles antibiotics (doxycycline/Augmentin) for the first 10 days of each month. She was intolerant of Flagyl due to severe nausea. Ms. Mcnair reports that in October of this year she developed diffuse anasarca. This is progressively worsening. She has swelling involving her arms abdomen and legs. Review of her EMR shows that Ms. Mcnair has developed malabsorption. Serum albumin has been as low as 2.4 dating back to at least 05/20. The patient relates that she has had other complications of malabsorption including hypomagnesemia and hypokalemia. She was admitted to [facility] 12/27/2023 for evaluation of constipation. She has been evaluated by surgery for a small bowel obstruction. No obstruction was felt to be present. She has been treated with enemas and oral laxatives. Ms. Mcnair notes that she is on an outpatient medical regimen that includes low-dose spironolactone and furosemide. She held these for several days prior to admission due to her constipation. Allergies Allergy/AdvReac Type Severity Reaction Status Date / Time simvastatin [From Zocor] Allergy Intermediate "made me Verified 12/16/23 14:44 pass out" ibuprofen Allergy Mild stomach Verified 12/16/23 14:44 pain naproxen [From Aleve] Allergy Mild STOMACH Verified 12/16/23 14:44 PAIN oxycodone [From Percocet] Allergy Mild stomach Verified 12/16/23 14:44 pain oyster extract AdvReac Gastrointestinal Verified 12/16/23 14:44 Upset scallops AdvReac Gastrointestinal Verified 12/16/23 14:44 Upset Home Medications Medication Instructions Recorded Confirmed Type tramadol 37.5 mg-acetaminophen 325 1 tab PO QID PRN pain #30 tabs 11/14/18 12/28/23 Rx mg tablet hydroxychloroquine 200 mg tablet 400 mg PO QPM 02/23/19 12/28/23 History rivaroxaban 20 mg tablet (Xarelto) 20 mg PO QPM 02/23/19 12/28/23 History lactase 3,000 unit tablet 3,000 units PO QID PRN Abdominal 05/08/19 12/28/23 History Discomfort multivitamin 1 tab PO QAM 05/08/19 12/28/23 History metoprolol succinate 100 mg 100 mg PO QPM 04/25/20 12/28/23 History tablet,extended release 24 hr Saccharomyces boulardii 250 mg 250 mg PO QAM 04/28/21 12/28/23 History capsule (Digest Probiotic (S.boulardii)) calcium carbonate 500 mg PO QAM 04/28/21 12/28/23 History cetirizine 10 mg capsule (Zyrtec) 10 mg PO QAM 04/28/21 12/28/23 History dvwhihex-xtd-PP 200 mcg-vit K 15 1 tab PO QPM 04/28/21 12/28/23 History mcg-lycope 150 byi-woghbd-pxpu tablet (Ocuvite Eye Plus Multi) omeprazole 40 mg capsule,delayed 40 mg PO QAM 04/28/21 12/28/23 History release spironolactone 25 mg tablet 25 mg PO QAM 03/29/22 12/28/23 History lzlkd-u-ztwznpunpddmj 450 unit 450 unit PO BIDWMEAL PRN .abd 05/28/22 12/28/23 History disintegrating tablet (Beano) bloating cyanocobalamin (vitamin B-12) 500 500 mcg PO DAILY 05/28/22 12/28/23 History mcg tablet orieec-anppbtdg-ynbnmju 1 cap PO TID 05/28/22 12/28/23 History 6,000-19,000-30,000 unit capsule,delayed rel (Creon) mycophenolate mofetil 500 mg tablet 500 mg PO BID 05/28/22 12/28/23 History prednisolone acetate 1 % eye 1 drp OPB UD 05/28/22 12/28/23 History drops,suspension simethicone 80 mg chewable tablet 80 mg PO DIRECTED PRN 05/28/22 12/28/23 History .gas/bloating fluticasone 250 mcg-salmeterol 50 1 inh inhalation BID #180 puffs 11/08/22 12/28/23 Rx mcg/dose blistr powdr for inhalation (Advair Diskus) cholecalciferol (vitamin D3) 25 10,000 unit PO QAM 11/29/22 12/28/23 History mcg (1,000 unit) capsule (Vitamin D3) magnesium oxide 400 mg PO DAILY 06/16/23 12/28/23 History ondansetron HCl 4 mg tablet 4 mg PO Q6H PRN Nausea And Vomiting 06/16/23 12/28/23 History albuterol sulfate 1.25 mg/3 mL 2.5 mg inhalation QID 09/30/23 12/28/23 History solution for nebulization furosemide 20 mg tablet 20 mg PO QAM 11/14/23 12/28/23 History albuterol sulfate 90 mcg/actuation 1 puff inhalation Q6 PRN Shortness 12/28/23 12/28/23 History aerosol inhaler Of Breath ferrous sulfate 325 mg (65 mg 325 mg PO QAM 12/28/23 12/28/23 History iron) tablet (Iron (ferrous sulfate)) krill 1,000 mg-omega-3 170 mg-dha 1 cap PO DAILY 12/28/23 12/28/23 History 50 mg-epa 80 du-gmtnux-vyfre capsule (krill oil) triamcinolone acetonide 55 mcg 2 sprays intranasal QAM 12/28/23 12/28/23 History nasal spray aerosol (Nasacort) Patient History Medical History Hypomagnesemia MONTES (dyspnea on exertion) Nausea Decreased appetite Hypomagnesemia Decubitus skin ulcer Hypertension Scleroderma History of COVID-19 fall 2021 Poor intravenous access "took 2 hours to get IV in for last procedure, finally needed the [place] machine to get in place, had to be put in by anesthesia" Environmental and seasonal allergies History of cardioversion x several Chronic back pain Chronic diarrhea Gastroparesis On anticoagulant therapy xarelto daily Surgical History S/P debridement (01/28/23) Abdominal Wall Wound Debridement, Skin, Subcutaneous, Fascia 15x8 - Rasheed Ward MD, FACS > pt still has at present, follows with wound clinic History of benign breast biopsy History of dilatation and curettage History of total right knee replacement (TKR) History of colonoscopy History of esophagogastroduodenoscopy (EGD) Status post fine needle biopsy on thyroid--all benign History of tooth extraction full upper History of bilateral cataract extraction History of cardiac radiofrequency ablation (~10/2020) 2020 @ [facility] History of hand surgery finger surgery > right History of hernia repair History of cholecystectomy History of surgery Mutiple GI procedures for blocked bowel. History of gastric bypass raymundo-en-y Family History Father Hearing loss Brother Hearing loss Other Cancer Heart disease Hypertension No family history of adverse response to anesthesia No family history of bleeding disorder Stroke Social History Smoking Status: Never smoker Second Hand Exposure: No; Do You Dip or Chew Tobacco: No; Tobacco Cessation Education Requested by Patient: No Hx Alcohol Use: No Hx Substance Use: No Preferred Language: Citizen Of [place] Communication Ability: Effective Home Fire Alarm Installer Required: No Beliefs That Will Affect Care: None marital status: Single Current Living Situation: Alone Current Living Situation Comment: lives home alone current occupational status: retired Other Information That Helps Us Care for You: No Feels Safe at Home: Yes Safety Concerns: Feels Safe At This Time Diet: other Diet Comment: gastroparesis caffeine: Yes Assistive Devices: Walker Review of Systems Constitutional: no fever Eyes: no problem reported Ear, Nose, Mouth, Throat: no problem reported Respiratory: no cough and no dyspnea Cardiovascular: no chest pain Gastrointestinal: + bloating and + constipation; no abdomi nal pain Genitourinary: no dysuria and no hematuria Integumentary: Skin tightening Physical Exam Constitutional: + ill appearing; not in distress Eyes: PERRL, conjunctivae normal, anicteric sclerae ENMT: external ear and nose normal, oropharynx normal Neck: trachea midline, no thyromegaly Respiratory: normal respiratory effort, lungs clear to auscultation Cardiovascular: Rate/Rhythm: regular rate and regular rhythm Gastrointestinal (Abdomen): Inspection/Auscultation: + hypoactive bowel sounds Percussion/Palpation: abdomen nontender and no guarding Musculoskeletal: 1+ edema of the arms and legs. Skin: + skin tightening Results & Data Vital Signs (Past 12 Hours) Vital Signs Temp Pulse Pulse Resp BP Pulse Ox O2 Del Method 12/29/23 11:14 36.4 C L 82 18 122/82 97 Nasal Cannula 12/29/23 11:03 90 17 94 Nasal Cannula 12/29/23 08:00 100 H 12/29/23 07:50 36.7 C 80 18 136/69 95 Room Air 12/29/23 07:16 98 H 17 97 Nasal Cannula 12/29/23 03:43 36.4 C L 80 18 99/63 L 94 Nasal Cannula 12/29/23 01:06 77 O2 Flow Rate 12/29/23 11:14 1 12/29/23 11:03 1 12/29/23 08:00 12/29/23 07:50 12/29/23 07:16 1 12/29/23 03:43 2 12/29/23 01:06 Laboratory Results Laboratory Results WBC 8.12 K/ul (4.8-10.8) 12/29/23 08:12 RBC 2.86 M/uL (4.20-5.40) L 12/29/23 08:12 Hgb 9.4 g/dl (12.0-16.0) L 12/29/23 08:12 Hct 26.8 % (37.0-47.0) L 12/29/23 08:12 MCV 93.7 fL (80.0-100.0) 12/29/23 08:12 MCH 32.9 pg (25.0-34.0) 12/29/23 08:12 MCHC 35.1 g/dL (32.0-36.0) 12/29/23 08:12 RDW Std Deviation 51.9 fL (36.4-46.3) H 12/29/23 08:12 RDW Coeff of Lorenzo 15.1 % (11.5-14.5) H 12/29/23 08:12 Plt Count 185 K/uL (130-400) 12/29/23 08:12 MPV 11.0 fL (9.4-12.4) 12/29/23 08:12 Immature Gran % (Auto) 0.5 % 12/28/23 15:17 Neut % (Auto) 84.9 % 12/28/23 15:17 Lymph % (Auto) 8.7 % 12/28/23 15:17 Hunt % (Auto) 5.6 % 12/28/23 15:17 Eos % (Auto) 0.0 % 12/28/23 15:17 Baso % (Auto) 0.3 % 12/28/23 15:17 Neut # (Auto) 10.09 K/uL (1.40-6.50) H 12/28/23 15:17 Lymph # (Auto) 1.04 K/uL (1.20-3.40) L 12/28/23 15:17 Hunt # (Auto) 0.67 K/uL (0.11-0.59) H 12/28/23 15:17 Eos # (Auto) 0.00 K/uL (0.00-0.50) 12/28/23 15:17 Baso # (Auto) 0.04 K/uL (0.00-0.20) 12/28/23 15:17 Immature Gran # (Auto) 0.06 K/uL (0.01-0.20) 12/28/23 15:17 Sodium 133 mmol/L (136-145) L 12/29/23 08:12 Potassium 4.1 mmol/L (3.5-5.1) D 12/29/23 08:12 Chloride 89 mmol/L (98-107) L 12/29/23 08:12 Carbon Dioxide 38 mmol/L (21-32) H 12/29/23 08:12 Anion Gap 6 (3-11) 12/29/23 08:12 BUN 8 mg/dl (6-23) 12/29/23 08:12 Creatinine < 0.20 mg/dl (0.6-1.2) L 12/29/23 08:12 Est Cr Clr Drug Dosing 287.7 ml/min 12/29/23 08:12 eGFR Not Reportable 12/29/23 08:12 BUN/Creatinine Ratio TNP 12/29/23 08:12 Glucose 69 mg/dl (70-99(Fasting)) L 12/29/23 08:12 Osmolality 261 mOsm/kg (280-300) L 12/27/23 22:48 Lactate 0.7 mmol/L (0.4-2.0) 12/28/23 22:43 Calcium 7.7 mg/dl (8.6-10.3) L 12/29/23 08:12 Magnesium 1.5 mg/dl (1.7-2.4) L 12/29/23 08:12 Total Bilirubin 0.9 mg/dl (0.2-1.0) 12/29/23 08:12 AST 43 U/L (13-39) H 12/29/23 08:12 ALT 42 U/L (7-52) 12/29/23 08:12 Alkaline Phosphatase 96 U/L (34-104) 12/29/23 08:12 C-Reactive Protein < 0.50 mg/dl (0-0.5) 12/28/23 15:17 Total Protein 4.7 gm/dl (6.0-8.3) L 12/29/23 08:12 Albumin 2.9 gm/dl (3.4-5.0) L 12/29/23 08:12 Globulin 1.8 gm/dl (2.5-4.0) L 12/29/23 08:12 Albumin/Globulin Ratio 1.6 (0.9-2) 12/29/23 08:12 Lipase 3 U/L (11-82) L 12/27/23 22:48 Urine Color Dark Yellow 12/27/23 22:56 Urine Appearance Turbid (Clear) A 12/27/23 22:56 Urine pH 7.0 (4.5-7.5) 12/27/23 22:56 Ur Specific [place] 1.027 (1.000-1.030) 12/27/23 22:56 Urine Protein 1+ (Negative) H 12/27/23 22:56 Urine Glucose (UA) Negative (Negative) 12/27/23 22:56 Urine Ketones 1+ (Negative) H 12/27/23 22:56 Urine Blood 1+ (Negative) H 12/27/23 22:56 Urine Nitrite Negative (Negative) 12/27/23:56 Urine Bilirubin 1+ (Negative) H 12/27/23 22:56 Urine Urobilinogen Negative (Negative) 12/27/23 22:56 Ur Leukocyte Esterase 3+ (Negative) H 12/27/23 22:56 Urine WBC (Auto) >50 /hpf (0-5) H 12/27/23 22:56 Urine RBC (Auto) 3-5 /hpf (0-2) H 12/27/23 22:56 U Hyaline Cast (Auto) 0-2 /lpf (0-2) 12/27/23 22:56 U Epithel Cells (Auto) 0-2 /hpf (0-2) 12/27/23 22:56 Urine Bacteria (Auto) 4+ (None Seen) H 12/27/23 22:56 Calcium Oxalate Crystal Present (None Prsent) A 12/27/23 22:56 Urine Osmolality 669 mOsm/kg (500-800) 12/27/23 22:56 Ur Random Sodium 20 mmol/L 12/27/23 22:56 Impressions Chest X-Ray 12/27/23 22:35 XR chest 1V portable CLINICAL HISTORY: const TECHNIQUE: Single frontal radiograph of the chest was obtained. Comparison: Comparison is made to chest radiograph 11/14/2023 FINDINGS: No lines and tubes are seen. Calcified aortic knob is seen. Lungs are underinflated. Interstitial thickening is seen. No evidence of pleural effusion or pneumothorax. IMPRESSION: Low lung volumes are seen with atelectasis and mild interstitial thickening. ACT 112: Negative or not required by law. Electronically signed by: Nico Denis M.D. 12/28/2023 6:52 AM Abdomen/Pelvis CT 12/27/23 23:43 Exam(s): CT ABDOMEN + PELVIS With Contrast IV Amt: 94 cc optiray 320 EXAM: CT Abdomen and Pelvis With Intravenous Contrast CLINICAL HISTORY: Reason for exam: abd pain. TECHNIQUE: Axial computed tomography images of the abdomen and pelvis with intravenous contrast. CTDI is 28.12 mGy and DLP is 1548.06 mGy-cm. Automated exposure control was utilized for the study. A dose lowering technique was utilized adhering to the principles of ALARA. CONTRAST: Patient received 94 cc optiray 320 of IV contrast COMPARISON: 12/24/22. FINDINGS: Lung bases: Mild dependent bibasilar atelectasis. Pneumonia or aspiration not definitively excluded. Pleural space: Small left and trace right basilar pleural effusions. ABDOMEN: Liver: Diffuse fatty infiltration of the liver. Gallbladder and bile ducts: Post cholecystectomy, unchanged. No biliary ductal dilatation. Pancreas: Pancreas is atrophic, otherwise, unremarkable. No ductal dilation. Spleen: Unremarkable. No splenomegaly. Adrenals: Unremarkable. No mass. Kidneys and ureters: Unremarkable. No hydronephrosis. Simple, 2.0 cm right renal cyst requires no further follow-up. Stomach and bowel: Large amount of organized stool throughout the colon without dilatation to suggest obstruction. Transition point in the third portion of the duodenum with marked fluid distention of the proximal and distal duodenum and proximal jejunum, more prominent in appearance compared to prior examination. Findings may represent stenosis or stricture. Detail limited as no enteric contrast was administered. Post gastric bypass, unchanged. No mucosal thickening. PELVIS: Appendix: No findings to suggest acute appendicitis. Bladder: Unremarkable. No mass. Reproductive: Unremarkable as visualized. ABDOMEN and PELVIS: Intraperitoneal space: Trace perihepatic ascites. No free air. Bones/joints: No acute fracture. No dislocation. Lumbar spine spondylotic changes present. Soft tissues: Worsening, diffuse anasarca. Vasculature: Unremarkable. No abdominal aortic aneurysm. Lymph nodes: Unremarkable. No enlarged lymph nodes. IMPRESSION: 1. Mild dependent bibasilar atelectasis. Pneumonia or aspiration not definitively excluded. 2. Transition point in the third portion of the duodenum with marked fluid distention of the proximal and distal duodenum and proximal jejunum, more prominent in appearance compared to prior examination. Findings may represent stenosis or stricture. Detail limited as no enteric contrast was administered. 3. Trace perihepatic ascites. 4. Worsening, diffuse anasarca. Electronically signed by: Tommy Fernandez MD 12/28/23 01:26 AM KUB X-Ray 12/28/23 08:23 KUB CLINICAL HISTORY: worsening vitals, white count COMPARISON STUDY: KUB December 27, 2023. CT of the abdomen and pelvis performed earlier today. FINDINGS: Contrast within the collecting systems, ureters and bladder is from recent contrast-enhanced CT. Bowel gas pattern is normal. There is a moderate to large amount of stool within the colon and rectum. There is no evidence for free air on supine exam. Status post cholecystectomy. IMPRESSION: 1. No radiographic evidence for a bowel obstruction. 2. Moderate to large amount of stool within the colon and rectum. ACT 112: Negative or not required by law. Electronically signed by: George Scott M.D. 12/28/2023 10:42 AM PG Care Time/CCT Total # of Minutes Spent Total Time Spent with Patient: Total time spent is greater than 50% in coordination of care (as documented) at patient's floor/unit and/or counseling patient: Coding Level of Care Code 72367 IN/OBS CONSULT LVL 5,80M Diagnoses Anasarca R60.1 Scleroderma M34.9
--- NOTE | 2023-12-29 14:03 | Hospitalist Progress Note ---
Date of Service December 29, 2023 Assessment & Plan (1) Constipation: (2) Hyponatremia: (3) Pulmonary fibrosis: (4) Scleroderma: (5) Urinary tract infection: (6) Anasarca: Plan Pt is a 68 yo female with PMH of scleroderma (with associated pulmonary fibrosis), afib, and HTN presenting d/t constipation. Constipation vs. SBO - Clinical picture more consistent with constipation with large stool burden, has passed stool since manual disimpaction, enema by surgery - KUB showed large, dilated loops of bowel; CTAP showing transition point in duodenum with concern for stricture vs. stenosis - Subsequent KUB without evidence of obstruction but with remaining stool burden - pt with significant past surgical hx of gastric bypass and multiple surgical interventions for bowel blockages - Gen surg recommending no further intervention, may start oral bowel regimen now that patient is passing stool - Tolerating clear liquids - Will follow up nutrition consult Anasarca - Nephrology consultation appreciated: likely manifestation of hypoalbuminemia 2/2 poor nutritional status IV albumin with goal of >4: will order 100g today and recheck labs in am, monitor for clinical response continue home spironolactone and lasix, no more follow urine output, BMP, serum albumin elevated BUN/Cr 2/2 low muscle mass in setting and poor protein absorption Hyponatremia - Na 128 on admission, improved to 129 with fluids - suspect secondary to hypovolemia in the setting of poor PO intake - urine Na, osmolality and serum osmolality ordered - Appears Hypotonic, hypervolemic hyponatremia - trend labs Transaminitis - known fatty liver re-demonstrated on CT - mild ascites present on CT - chronically elevated INR UTI - pt notes increased urinary frequency over the last few days prior to hospitalization - CTX daily Afib - continue home xarelto, metoprolol HTN - continue home spironolactone Scleroderma with associated pulmonary fibrosis - pt follows with rheum as an outpatient - continue home inhalers/medications - nephrology recommends [facility] consultation. Reassess for SIBO. Diet: NPO, LR at 100 mL/hr Code: full VTE ppx: home xarelto Dispo: admit to med/surg Admission and Anticipated Discharge Date Admission Date: December 28, 2023 Supervising Physician Co-Signing Physician Notes I personally examined the patient and verified rizzo points of history and exam, discussed case, and agree with decision making and plan documented by Dr. Carranza. Patient presenting with concern of small bowel obstruction, CT scan with high stool burden, transition point in duodenum concerning for stenosis or stricture. Patient was manually disimpacted in addition to having an enema initially. She has now been placed on bowel regimen and continues to have bowel movements and flatus. Patient states her abdominal pain has improved, she denies nausea or vomiting. Leukocytosis improving, patient remains on ceftriaxone, urine culture +proteus mirabilis. Monitor hemoglobin, dropped to 9.4 in past day, no signs of bleeding at present. Advancing diet as tolerated, appreciate nutritional recommendations. Subjective Patient seen and evaluated at bedside this morning. Required additional potassium repletion overnight, otherwise no acute events. Patient states she is feeling better today. White count has improved. Continues on CTX. Sodium slowly improving. Potassium improved. Albumin remains low. BUN/Cr ratio high. Review of Systems Review of Systems: reviewed, per HPI Physical Exam Physical Exam: Constitutional: ill-appearing, no acute distress HEENT: NCAT, no conjunctival injection CV: appears clinically well perfused, anasarca in arms/legs, up to mid abdomen Resp: no increased work of breathing GI: TTP left side predominance MSK: no gross deformities appreciated Skin: warm, dry, no rash appreciated Neuro: somnolent Results & Data Results & Data Vital Signs (Past 12 Hours) Vital Signs Temp Pulse Pulse Resp BP Pulse Ox O2 Del Method 12/29/23 11:14 36.4 C L 82 18 122/82 97 Nasal Cannula 12/29/23 11:03 90 17 94 Nasal Cannula 12/29/23 08:00 100 H 12/29/23 07:50 36.7 C 80 18 136/69 95 Room Air 12/29/23 07:16 98 H 17 97 Nasal Cannula 12/29/23 03:43 36.4 C L 80 18 99/63 L 94 Nasal Cannula O2 Flow Rate 12/29/23 11:14 1 12/29/23 11:03 1 12/29/23 08:00 12/29/23 07:50 12/29/23 07:16 1 12/29/23 03:43 2 Resident Activity Tracking Resident Involvement: Resident Care Provided Care Provided: Adult Hospital Medicine (5) Urinary tract infection Hematuria presence: without hematuria Urinary tract infection type: site unspecified Qualified Code(s): N39.0 - Urinary tract infection, site not specified
[2023-12-29] MEDS: ALBUMIN 25% 25 GM/100 ML VIAL IV SCH (14:20)
--- NOTE | 2023-12-29 15:41 | Electrocardiogram Report ---
Test Reason : Blood Pressure : */* mmHG Vent. Rate : 78 BPM Atrial Rate : 78 BPM P-R Int : 184 ms QRS Dur : 92 ms QT Int : 410 ms P-R-T Axes : * 86 63 degrees QTcB Int : 467 ms Sinus rhythm with marked sinus arrhythmia Low voltage QRS Abnormal ECG When compared with ECG of 14-Nov-2023 11:32, T wave inversion no longer evident in Inferior leads Nonspecific T wave abnormality no longer evident in Lateral leads Confirmed by Ricardo Lopez ([id number]) on 12/29/2023 3:40:44 PM Referred By: REFERRED SELF Confirmed By: Ricardo Lopez
[2023-12-29 16:40] LABS: Appearance Urine Clear (Clear); Bacteria Urine Automated None Seen (None Seen); Bilirubin Urine Negative (Negative); Blood Urine Negative (Negative); Cast Urine Automated 0-2 /lpf (0-2); Color Urine Yellow; Epithelial Cell Urine Auto 0-2 /hpf (0-2); Glucose Urine UA Negative (Negative); Ketones Urine Negative (Negative); Leukocyte Esterase Urine Trace (Negative); Nitrite Urine Negative (Negative); Protein Urine Negative (Negative); RBC Urine Automated 0-2 /hpf (0-2); Specific Gravity Urine 1.005 (1.000-1.030); Urobilinogen Urine Negative (Negative)
[2023-12-29 16:56] LABS: Total Protein Urine Random < 4.0 mg/dl (0-11.9)
[2023-12-29] MEDS: POLYETHYLENE (MIRALAX) 17 GM PACK PO PRN (17:44)
[2023-12-30] MEDS: ONDANSETRON INJ 2 MG/ML 2 ML VIAL IV PRN (00:58)
[2023-12-30 07:33] LABS: Hematocrit (blood only) 28.1 % (37.0-47.0); Hemoglobin 9.4 g/dl (12.0-16.0); Mean Corpuscular Hemoglobin 32.8 pg (25.0-34.0); Mean Corpuscular Hgb Conc 33.5 g/dL (32.0-36.0); Mean Corpuscular Volume 97.9 fL (80.0-100.0); Mean Platelet Volume 10.7 fL (9.4-12.4); Platelet Count 185 K/uL (130-400); RDW Coefficient of Variation 15.4 % (11.5-14.5); RDW Standard Deviation 55.6 fL (36.4-46.3); Red Blood Count 2.87 M/uL (4.20-5.40); White Blood Count 10.18 K/ul (4.8-10.8)
[2023-12-30 07:56] LABS: Albumin Level 3.9 gm/dl (3.4-5.0); Anion Gap 5 (3-11); Calcium 8.3 mg/dl (8.6-10.3); Carbon Dioxide 40 mmol/L (21-32); Chloride 89 mmol/L (98-107); Potassium 3.9 mmol/L (3.5-5.1); Sodium 134 mmol/L (136-145)
[2023-12-30 08:02] LABS: Alanine Aminotransferase 33 U/L (7-52); Albumin Globulin Ratio 2.4 (0.9-2); Alkaline Phosphatase 80 U/L (34-104); Aspartate Aminotransferase 32 U/L (13-39); Blood Urea Nitrogen 7 mg/dl (6-23); Creatinine Clr Calc Pharmacy 279.1 ml/min; Globulin 1.6 gm/dl (2.5-4.0); Glucose 97 mg/dl (70-99(Fasting)); Total Protein 5.5 gm/dl (6.0-8.3)
--- NOTE | 2023-12-30 08:58 | Nephrology Progress Note ---
Date of Service December 30, 2023 Assessment & Plan (1) Anasarca: Plan: * Anasarca is likely a manifestation of hypoalbuminemia and 3rd spacing of volume * Patient has no proteinuria. This is not nephrotic syndrome. Hypoalbuminemia is due to malabsorption * Recommend IV albumin to maintain serum albumin > 4.0 * Continue outpatient therapy of spironolactone and furosemide * Add acetazolamide 250 mg po BID to improve metabolic alkalosis. Stop for HCO3 < 26 * Monitor UO, BMP, serum albumin * High BUN to creatinine ratio is indicative of low creatinine from low muscle mass and poor nutritional protein absorption * No further evaluation from nephrology perspective. Will sign off. Recommend reevaluation by GI due to possible SIBO, malabsorption (2) Scleroderma: Plan: * Recommend consultation w/ [facility] gastro[facility]ology (patient is known to them). May need to reassess for SIBO. May need to consider dietary changes to improve protein status Admission and Anticipated Discharge Date Admission Date: December 28, 2023 Subjective Ms. Mcnair was evaluated in her hospital room this morning. She voiced no new medical concerns Review of Systems Constitutional: no fever Eyes: no problem reported Ear, Nose, Mouth, Throat: no problem reported Respiratory: no cough and no dyspnea Cardiovascular: no chest pain Gastrointestinal: + bloating and + constipation; no abdomi nal pain Genitourinary: no dysuria and no hematuria Integumentary: Skin tightening Physical Exam Constitutional: + ill appearing; not in distress Eyes: PERRL, conjunctivae normal, anicteric sclerae ENMT: external ear and nose normal, oropharynx normal Neck: trachea midline, no thyromegaly Respiratory: normal respiratory effort, lungs clear to auscultation Cardiovascular: Rate/Rhythm: regular rate and regular rhythm Gastrointestinal (Abdomen): Inspection/Auscultation: + hypoactive bowel sounds Percussion/Palpation: abdomen nontender and no guarding Skin: + skin tightening Results & Data Vital Signs (Past 12 Hours) Vital Signs Temp Pulse Pulse Resp BP Pulse Ox O2 Del Method 12/30/23 08:18 36.4 C L 104 H 16 120/75 98 Nasal Cannula 12/30/23 07:47 95 H 12/30/23 06:53 89 17 90 Nasal Cannula 12/30/23 03:00 36.3 C L 100 H 18 131/61 93 Room Air 12/30/23 00:24 79 12/29/23 23:53 36.4 C L 86 18 118/75 92 Nasal Cannula 12/29/23 21:47 Nasal Cannula O2 Flow Rate 12/30/23 08:18 2 12/30/23 07:47 12/30/23 06:53 2 12/30/23 03:00 12/30/23 00:24 12/29/23 23:53 1 12/29/23 21:47 1 Laboratory Results Laboratory Results - last 24 hr 12/29/23 12/29/23 12/30/23 08:12 16:10 07:04 WBC 8.12 10.18 RBC 2.86 L 2.87 L Hgb 9.4 L 9.4 L Hct 26.8 L 28.1 L MCV 93.7 97.9 MCH 32.9 32.8 MCHC 35.1 33.5 RDW Std Deviation 51.9 H 55.6 H RDW Coeff of Lorenzo 15.1 H 15.4 H Plt Count 185 185 MPV 11.0 10.7 Sodium 134 L Potassium 3.9 Chloride 89 L Carbon Dioxide 40 H Anion Gap 5 BUN 8 7 Creatinine < 0.20 L < 0.20 L Est Cr Clr Drug Dosing 287.7 279.1 eGFR Not Reportable Not Reportable BUN/Creatinine Ratio TNP TNP Glucose 69 L 97 Calcium 8.3 L Total Bilirubin 1.0 AST 43 H 32 ALT 42 33 Alkaline Phosphatase 96 80 Total Protein 4.7 L 5.5 L Albumin 3.9 Globulin 1.8 L 1.6 L Albumin/Globulin Ratio 1.6 2.4 H Urine Color Yellow Urine Appearance Clear Urine pH 6.0 Ur Specific [place] 1.005 Urine Protein Negative Urine Glucose (UA) Negative Urine Ketones Negative Urine Blood Negative Urine Nitrite Negative Urine Bilirubin Negative Urine Urobilinogen Negative Ur Leukocyte Esterase Trace H Urine WBC (Auto) 6-10 H Urine RBC (Auto) 0-2 U Hyaline Cast (Auto) 0-2 U Epithel Cells (Auto) 0-2 Urine Bacteria (Auto) None Seen Ur Random Creatinine 10.0 U Random Total Protein < 4.0 Protein/Creatinin Ratio TNP PG Care Time/CCT Total # of Minutes Spent Total Time Spent with Patient: Total time spent is greater than 50% in coordination of care (as documented) at patient's floor/unit and/or counseling patient: Coding Level of Care Code 92665 SUB INP/OBS CARE 350MIN Diagnoses Anasarca R60.1 Scleroderma M34.9
[2023-12-30] MEDS: acetaZOLAMIDE 250 MG TAB PO SCH (11:43)
--- NOTE | 2023-12-30 13:38 | Hospitalist Progress Note ---
Date of Service December 30, 2023 Assessment & Plan (1) Constipation: (2) Hyponatremia: (3) Pulmonary fibrosis: (4) Scleroderma: (5) Urinary tract infection: (6) Anasarca: (7) Felon of finger of left hand: (8) Acute respiratory failure with hypercapnia: Plan Pt is a 68 yo female with PMH of scleroderma (with associated pulmonary fibrosis), afib, and HTN presenting d/t constipation. Acute Respiratory Failure 2/[address] imaging demonstrates acute worsening of pulmonary edema with pleural effusion ABG 12/29 shows profound respiratory acidosis Bipap initiated at 12/02 Decision to move to ICU Will initiate diuresis, though this may be largely futile Start with 80mg Lasix IV Constipation vs. SBO Clinical picture more consistent with constipation with large stool burden, has passed stool since manual disimpaction, enema by surgery KUB showed large, dilated loops of bowel; CTAP showing transition point in duodenum with concern for stricture vs. stenosis Subsequent KUB without evidence of obstruction but with remaining stool burden pt with significant past surgical hx of gastric bypass and multiple surgical interventions for bowel blockages Gen surg recommending no further intervention, may start oral bowel regimen now that patient is passing stool Given increased abdominal pain 12/30/23 repeat CTAP performed Progression of volume overload, increase in b/l pleural effusion, increase in pulmonary edema, increase in anasarca, and increase in abdominal and pelvic ascites Management as above Anasarca Nephrology consultation appreciated: likely manifestation of hypoalbuminemia 2/2 poor nutritional status IV albumin with goal of >4: will order 100g today and recheck labs in am, monitor for clinical response continue home spironolactone and lasix, no more follow urine output, BMP, serum albumin elevated BUN/Cr 2/2 low muscle mass in setting and poor protein absorption adding acetazolamide for metabolic alkalosis Hyponatremia Continues to uptrend suspect secondary to hypovolemia and malnurishment urine Na, osmolality and serum osmolality ordered Appears Hypotonic, hypervolemic hyponatremia trend labs Transaminitis known fatty liver re-demonstrated on CT mild ascites present on CT chronically elevated INR UTI pt notes increased urinary frequency over the last few days prior to hospitalization CTX daily Afib continue home xarelto, metoprolol Felon ortho consult to [place] 12/31/23 Given decompensation, will likely need to wait HTN continue home spironolactone Scleroderma with associated pulmonary fibrosis pt follows with rheum as an outpatient continue home inhalers/medications nephrology recommends [facility] consultation. Reassess for SIBO. Diet: NPO, LR at 100 mL/hr Code: full VTE ppx: home xarelto Dispo: ICU Admission and Anticipated Discharge Date Admission Date: December 28, 2023 Supervising Physician Co-Signing Physician Notes Attending attestation Pt seen and examined in concert with Dr. Carranza. In agreement with the documented findings as noted in the resident documentation with any exceptions or additions as noted here. Complaint of new onset fatigue though no appearance of severe somnolence at bedside, answer questions appropriately. Reports worsening LLQ abdominal pain - producing flatus today, last BM was yesterday. Ongoing positional shortness of breath unchanged from previous. New bilateral headache last 24+ hours without accompanying neurologic signs On examination, S1/S2 nl IRR no MCG. CTAB. Abd BS+ve, LLQ TTP with ongoing abdominal and LE edema noted. Newly somnolent w/ headache - multiple potential etiologies - CT head, chest today, close clinical monitoring and repeat labs with ongoing changes, consider ABG. LLQ abdominal pain in the setting of constipation vs. SBO with last BM yesterday - with worsening abd pain, will repeat CT abdomen/pelvis (noncontrasted with renal fxn). Will return to NPO until improved diagnostic clarity Finger swelling - concerning for felon vs. abscess - XR finger. orthopaedics consult for evaluation and intervention as warranted. Continue ceftriaxone re: no fevers or leukocytosis. Anasarca in the setting of metabolic alkalosis - nephrology sign off today - add diamox, continue spironolactone and furosemide. Albumin improved w/ infusion, will supplement one additional time so > 4. Trend Cr daily Hyponatremia - gradually improved w/ nutrition and hydration to 134. Repeat in AM. Else see resident documentation as noted. Subjective Patient seen and evaluated at bedside this morning. No acute events overnight. Today she is much more somnolent at bedside. Nursing reports that when patient ambulated to the bathroom she desaturated to the low 80s. She reports increased abdominal pain from yesterday and lack of appetite. Reports headache. Also reported large, painful lesion on L 3rd finger. States this has been present for over one week but has acutely worsened. Review of Systems Review of Systems: reviewed, per HPI Physical Exam Physical Exam: Constitutional: ill-appearing, no acute distress HEENT: NCAT, no conjunctival injection CV: appears clinically well perfused, anasarca in arms/legs, up to mid abdomen Resp: no increased work of breathing GI: TTP left side predominance MSK: felon of L 3rd finger, +cap refill Skin: warm, dry, no rash appreciated Neuro: somnolent Results & Data Results & Data Vital Signs (Past 12 Hours) Vital Signs Temp Pulse Pulse Resp BP Pulse Ox O2 Del Method 12/30/23 12:02 36.3 C L 105 H 16 114/72 97 Nasal Cannula 12/30/23 11:14 101 H 19 94 Nasal Cannula 12/30/23 08:18 36.4 C L 104 H 16 120/75 98 Nasal Cannula 12/30/23 08:00 Nasal Cannula 12/30/23 07:47 95 H 12/30/23 06:53 89 17 90 Nasal Cannula 12/30/23 03:00 36.3 C L 100 H 18 131/61 93 Room Air O2 Flow Rate 12/30/23 12:02 2 12/30/23 11:14 2 12/30/23 08:18 2 12/30/23 08:00 2 12/30/23 07:47 12/30/23 06:53 2 12/30/23 03:00 (5) Urinary tract infection Hematuria presence: without hematuria Urinary tract infection type: site unspecified Qualified Code(s): N39.0 - Urinary tract infection, site not specified
--- NOTE | 2023-12-30 15:25 | Orthopedic Consultation ---
Date of Service December 30, 2023 Assessment & Plan (1) Finger infection: Fingers xrays still pending. Her finger looks infected. She is on rocephin currently. Will discuss with Dr. Nieves about possible I and D. Further recommendations pending his evaluation. History of Present Illness Reason for Consultation: . Requesting Physician: . Attending Physician: Ricardo Pearson MD .Michelle is a 68 year old left hand dominant patient admitted for multiple medical reasons and ortho consulted for a left middle/long finger infection. She has a h/o scleroderma and says that she gets "stones" at times in the tips of her fingers. She has had some intermittent wound and drainage from this finger but has worsened over the past 3 days. It is painful. She is currently on Rocephin. She has a h/o an infection/felon in another finger and underwent I and D in the past. Allergies Allergy/AdvReac Type Severity Reaction Status Date / Time simvastatin [From Zocor] Allergy Intermediate "made me Verified 12/16/23 14:44 pass out" ibuprofen Allergy Mild stomach Verified 12/16/23 14:44 pain naproxen [From Aleve] Allergy Mild STOMACH Verified 12/16/23 14:44 PAIN oxycodone [From Percocet] Allergy Mild stomach Verified 12/16/23 14:44 pain oyster extract AdvReac Gastrointestinal Verified 12/16/23 14:44 Upset scallops AdvReac Gastrointestinal Verified 12/16/23 14:44 Upset Home Medications Medication Instructions Recorded Confirmed Type tramadol 37.5 mg-acetaminophen 325 1 tab PO QID PRN pain #30 tabs 11/14/18 12/28/23 Rx mg tablet hydroxychloroquine 200 mg tablet 400 mg PO QPM 02/23/19 12/28/23 History rivaroxaban 20 mg tablet (Xarelto) 20 mg PO QPM 02/23/19 12/28/23 History lactase 3,000 unit tablet 3,000 units PO QID PRN Abdominal 05/08/19 12/28/23 History Discomfort multivitamin 1 tab PO QAM 05/08/19 12/28/23 History metoprolol succinate 100 mg 100 mg PO QPM 04/25/20 12/28/23 History tablet,extended release 24 hr Saccharomyces boulardii 250 mg 250 mg PO QAM 04/28/21 12/28/23 History capsule (Digest Probiotic (S.boulardii)) calcium carbonate 500 mg PO QAM 04/28/21 12/28/23 History cetirizine 10 mg capsule (Zyrtec) 10 mg PO QAM 04/28/21 12/28/23 History qhltwgrr-rdg-WS 200 mcg-vit K 15 1 tab PO QPM 04/28/21 12/28/23 History mcg-lycope 150 qbg-buygdl-nzre tablet (Ocuvite Eye Plus Multi) omeprazole 40 mg capsule,delayed 40 mg PO QAM 04/28/21 12/28/23 History release spironolactone 25 mg tablet 25 mg PO QAM 03/29/22 12/28/23 History ehnfm-c-npqhynasjgjmo 450 unit 450 unit PO BIDWMEAL PRN .abd 05/28/22 12/28/23 History disintegrating tablet (Beano) bloating cyanocobalamin (vitamin B-12) 500 500 mcg PO DAILY 05/28/22 12/28/23 History mcg tablet wcqfcv-qadgffmk-letdibf 1 cap PO TID 05/28/22 12/28/23 History 6,000-19,000-30,000 unit capsule,delayed rel (Creon) mycophenolate mofetil 500 mg tablet 500 mg PO BID 05/28/22 12/28/23 History prednisolone acetate 1 % eye 1 drp OPB UD 05/28/22 12/28/23 History drops,suspension simethicone 80 mg chewable tablet 80 mg PO DIRECTED PRN 05/28/22 12/28/23 History .gas/bloating fluticasone 250 mcg-salmeterol 50 1 inh inhalation BID #180 puffs 11/08/22 12/28/23 Rx mcg/dose blistr powdr for inhalation (Advair Diskus) cholecalciferol (vitamin D3) 25 10,000 unit PO QAM 11/29/22 12/28/23 History mcg (1,000 unit) capsule (Vitamin D3) magnesium oxide 400 mg PO DAILY 06/16/23 12/28/23 History ondansetron HCl 4 mg tablet 4 mg PO Q6H PRN Nausea And Vomiting 06/16/23 12/28/23 History albuterol sulfate 1.25 mg/3 mL 2.5 mg inhalation QID 09/30/23 12/28/23 History solution for nebulization furosemide 20 mg tablet 20 mg PO QAM 11/14/23 12/28/23 History albuterol sulfate 90 mcg/actuation 1 puff inhalation Q6 PRN Shortness 12/28/23 12/28/23 History aerosol inhaler Of Breath ferrous sulfate 325 mg (65 mg 325 mg PO QAM 12/28/23 12/28/23 History iron) tablet (Iron (ferrous sulfate)) krill 1,000 mg-omega-3 170 mg-dha 1 cap PO DAILY 12/28/23 12/28/23 History 50 mg-epa 80 sn-itieci-whgvh capsule (krill oil) triamcinolone acetonide 55 mcg 2 sprays intranasal QAM 12/28/23 12/28/23 History nasal spray aerosol (Nasacort) Past Med/Surg History Problem List Cachexia Acute on chronic respiratory failure with hypercapnia Acute respiratory failure with hypercapnia Felon of finger of left hand Finger infection Anasarca Duodenal stricture Atrial fibrillation on xarelto follows with Dr. Bustamante > no pacer Bilateral leg weakness (Acute) Acute hyponatremia (Acute) Urinary tract infection (Acute) Acute constipation (Acute) Generalized weakness Anemia (Acute) Pressure ulcer, buttock (Acute) Surgical wound, non healing (Acute) Hypokalemia (Acute) Hypomagnesemia Acute respiratory failure with hypoxia Lumbar degenerative disc disease Stage III pressure ulcer (Acute) Gastroparesis Dysphagia Vocal cord nodules Anticoagulant long-term use History of atrial fibrillation (Acute) Pulmonary fibrosis (Acute) Atrial flutter (Acute) Allergic rhinitis caused by mold (Chronic) Allergic rhinitis due to dust mite (Chronic) Allergic rhinitis due to animal hair and dander (Chronic) Allergic rhinitis due to pollen (Chronic) GERD (gastroesophageal reflux disease) Raynaud's syndrome Asthma (Chronic) rare res inh use Pulmonary fibrosis (Chronic) Medical History Hyponatremia Constipation Macrocytic anemia Weakness Pallor Induration of periwound skin Pain of right scapula Hypokalemia Hypoxia Bronchitis due to human metapneumovirus (hMPV) Dyspnea on minimal exertion MONTES (dyspnea on exertion) Hypoxia Acute respiratory distress Acute bronchitis Regurgitation of food Encounter for pre-operative examination Acute upper respiratory infection Hypomagnesemia MONTES (dyspnea on exertion) Nausea Decreased appetite Hypomagnesemia Decubitus skin ulcer Hypertension Scleroderma History of COVID-19 fall 2021 Poor intravenous access "took 2 hours to get IV in for last procedure, finally needed the [place] machine to get in place, had to be put in by anesthesia" Environmental and seasonal allergies History of cardioversion x several Chronic back pain Chronic diarrhea Gastroparesis On anticoagulant therapy xarelto daily Surgical History No significant past surgical history S/P debridement (01/28/23) Abdominal Wall Wound Debridement, Skin, Subcutaneous, Fascia 15x8 - Chelsie Ward MD, FACS > pt still has at present, follows with wound clinic History of benign breast biopsy History of dilatation and curettage History of total right knee replacement (TKR) History of colonoscopy History of esophagogastroduodenoscopy (EGD) Status post fine needle biopsy on thyroid--all benign History of tooth extraction full upper History of bilateral cataract extraction History of cardiac radiofrequency ablation (~10/2020) 2020 @ [facility] History of hand surgery finger surgery > right History of hernia repair History of cholecystectomy History of surgery Mutiple GI procedures for blocked bowel. History of gastric bypass [id number] Family History Father Hearing loss Brother Hearing loss Other Cancer Heart disease Hypertension No family history of adverse response to anesthesia No family history of bleeding disorder Stroke Social History Smoking Status: Never smoker Second Hand Exposure: No; Do You Dip or Chew Tobacco: No; Tobacco Cessation Education Requested by Patient: No Hx Alcohol Use: No Hx Substance Use: No Preferred Language: Khmer Communication Ability: Effective Business Systems Developer Required: No Beliefs That Will Affect Care: None marital status: Single Current Living Situation: Alone Current Living Situation Comment: lives home alone current occupational status: retired Other Information That Helps Us Care for You: No Feels Safe at Home: Yes Safety Concerns: Feels Safe At This Time Diet: other Diet Comment: gastroparesis caffeine: Yes Assistive Devices: Walker Review of Systems All systems reviewed & are unremarkable except as noted in HPI & below. Physical Exam .left middle finger: obvious swelling, erythema of the distal tip of the f too, mostly involving the pulp area. There is some erythema extending more proximally. Tender to palpation. No open areas or drainage at this time. Results & Data Results & Data Laboratory Results . Diagnostic Findings . PG Care Time/CCT Total # of Minutes Spent Total Time Spent with Patient: Total time spent is greater than 50% in coordination of care (as documented) at patient's floor/unit and/or counseling patient: Coding Level of Care Code 62181 IN/OBS CONSULT LVL 3,45M Diagnoses Finger infection L08.9
--- NOTE | 2023-12-30 15:27 | CT Scan Report ---
CT OF THE ABDOMEN AND PELVIS WITHOUT CONTRAST CLINICAL HISTORY: Worsening abdominal pain. COMPARISON STUDY: CT of the abdomen and pelvis and KUB December 28, 2023. TECHNIQUE: Axial images of the abdomen and pelvis were obtained without IV contrast. Images were revi ewed in the axial, sagittal, and coronal planes. Automated exposure control was utilized for the david dy. A dose lowering technique was utilized adhering to the principles of ALARA. FINDINGS: Small bilateral pleural effusions have increased in size since CT of December 28, 2023. Asso ciated lower lobe airspace opacities, greater on the left, with volume loss have also progressed. Int erstitial thickening is noted. There is marked anasarca. Evaluation of the abdomen and pelvis is subo ptimal on this unenhanced exam. Severe hepatic steatosis is noted. There is hepatomegaly. Unenhanced images of the spleen, adrenal glands and kidneys are unremarkable with exception of a low-attenuation right renal lesion consistent with a cyst. Pancreatic glandular atrophy is noted. No pancreatic duct al dilatation. Mild biliary ductal dilatation may be related to cholecystectomy. A small amount of ab dominal and pelvic ascites has increased. There are postoperative findings consistent with Estrada-en-Y gastric bypass. As before, the proximal to mid duodenum is markedly dilated and fluid-filled. The pro ximal jejunum is also dilated and fluid-filled. The jejunojejunal anastomosis appears to be patent. N o well-defined transition point is identified. Findings are relatively similar to an earlier CT of [facility] 2022. Cecum is abnormally positioned within the lower anterior abdomen. However, there is n o CT evidence for a cecal volvulus at this time. The cecum is slightly distended. No fluid collection s are identified. There is extensive vascular calcification. There is no lymphadenopathy. IMPRESSION: 1. Progression of volume overload since CT of December 28, 2023. Increase in size of small bilateral p leural effusions and associated bibasilar opacities with interstitial pulmonary edema. Increase in an asarca and a small amount of abdominal and pelvic ascites. 2. Status post Estrada-en-Y gastric bypass. Persistent markedly dilated fluid-filled duodenum and jejunu m proximal to the jejunojejunal anastomosis. This dilatation is nonspecific and may be chronic when c orrelating with prior studies. A bowel obstruction is within the differential but no definite transit ion point to indicate an obstruction at this time. Continued imaging follow-up is recommended. 3. Abnormally positioned cecum within the lower anterior abdomen. Mild cecal dilatation without CT ev idence for cecal volvulus. This can be assessed on follow-up imaging studies. 4. Severe hepatic steatosis. Hepatomegaly. ACT 112: Negative or not required by law. Electronically signed by: George Scott M.D. 12/30/2023 3:25 PM
--- NOTE | 2023-12-30 15:27 | CT Scan Report ---
CT chest diagnostic wo con CLINICAL HISTORY: 68 years-old Female with hypoxia. Acute chest abdominal pain with hypoxia TECHNIQUE: Multiaxial CT images of the chest were performed without contrast. A dose lowering techni que was utilized adhering to the principles of ALARA. COMPARISON: CT abdomen and pelvis study of same day and also 12/28/2023 CT chest 05/21/2022. FINDINGS: Peripherally calcified 1.6 cm right sided thyroid nodule. Moderate cardiomegaly with decrea sed attenuation of the cardiac blood pool suggestive of anemia. Moderate coronary artery calcificatio ns. Atherosclerosis of the aorta with ectasia measuring up to 3.9 cm. No definite lymphadenopathy. Anasarca with moderate size layering pleural effusions, increased in size bilaterally compared to study. There is no pneumothorax identified. Intralobular septal thickening with intermixed gr oundglass and consolidative opacities which have also worsened from the 12/28/2023 CT abdomen and pel vis. Dense dependent bibasilar consolidation with air bronchograms, left greater than right. Mild bib asilar mucous plugging. Hepatic steatosis with anasarca. Gastric bypass with dilated air and fluid-filled loops of bowel in t he upper abdomen. No acute fracture. Soft tissue calcifications within the right paraspinal tissues. IMPRESSION: 1. Cardiomegaly with worsening volume overload compared to the 12/28/2023 study. This includes inters titial and alveolar pulmonary edema, moderate sized pleural effusions with anasarca and small amount of upper abdominal ascites. 2. Dependent bibasilar consolidation, left greater than right is likely atelectatic. A superimposed p neumonia could appear similarly. 3. Please refer to the CT abdomen and pelvis study of same day for additional findings. ACT 112: Negative or not required by law. Electronically signed by: Eliecer Muro M.D. 12/30/2023 3:24 PM
--- NOTE | 2023-12-30 15:33 | CT Scan Report ---
CT OF THE HEAD WITHOUT CONTRAST CLINICAL HISTORY: Altered mental status. COMPARISON STUDY: No previous studies for comparison. TECHNIQUE: Helical axial images of the head were obtained without IV contrast. Automated exposure con trol was utilized for the study. A dose lowering technique was utilized adhering to the principles o f ALARA. FINDINGS: This exam is mildly compromised by motion artifact. No acute intracranial hemorrhage, midli ne shift or mass effect is present. The ventricular system is unremarkable. The basal cisterns are pa tent. No extra-axial collections are present. There are no findings to suggest acute dural sinus thro mbosis or acute territorial infarct. No significant calvarial abnormalities are present. There is mil d sinus mucosal thickening. IMPRESSION: No acute intracranial findings. Exam mildly compromised by motion artifact. ACT 112: Negative or not required by law. Electronically signed by: George Scott M.D. 12/30/2023 3:30 PM
--- NOTE | 2023-12-30 16:04 | Orthopedic Progress Note ---
Date of Service December 30, 2023 Assessment & Plan (1) Finger infection: Given the size of the abscess, I think this would be best treated with an I&D. Will make her n.p.o. past midnight tonight. Will plan to do the I&D of the finger tomorrow morning. She understands the risk, benefits, alternatives to procedures like to proceed. Questions were answered at bedside. Time was spent on the procedure and postop expectations. The decision was made for surgery. Kristel Martinez was seen and examined at bedside. She has an obvious infection of her left middle finger. She has been treated with Rocephin. Unfortunate is not helping. She has a history of an I&D of a infected finger in the past. Orthopedics has been consulted to evaluate and treat.. Review of Systems All systems reviewed & are unremarkable except as noted in HPI & below. Physical Exam On physical examination left hand there is a large abscess on the distal pulp of the left middle finger.. Results & Data Results & Data Laboratory Results . Diagnostic Findings . PG Care Time/CCT Total # of Minutes Spent Total Time Spent with Patient: Total time spent is greater than 50% in coordination of care (as documented) at patient's floor/unit and/or counseling patient: Coding Level of Care Code 46110 SUB INP/OBS CARE 2/35MIN (57 - DECISION FOR SURGERY) Diagnoses Finger infection L08.9
[2023-12-30 16:33] LABS: iSTAT Arterial Blood Gas HCO3 41 meg/L (19-24); iSTAT Arterial Blood Gas pCO2 84 mmHg (35-46); iSTAT Arterial Blood Gas pH 7.29 (7.35-7.45); iSTAT Arterial Blood Gas pO2 62 mmHg (80-95); iSTAT Carbon Dioxide 43 mmol/L (24-31); iSTAT Hematocrit 29 % (37-47); iSTAT Hemoglobin 9.9 g/dl (12.0-16.0); iSTAT Sodium 132 mmol/L (135-144)
[2023-12-30 19:34] LABS: Basophils # (auto) 0.01 K/uL (0.00-0.20); Basophils % (auto) 0.1 %; Eosinophils # (auto) 0.01 K/uL (0.00-0.50); Eosinophils % (auto) 0.1 %; Hematocrit (blood only) 27.3 % (37.0-47.0); Hemoglobin 8.8 g/dl (12.0-16.0); Immature Granulocytes # (auto) 0.02 K/uL (0.01-0.20); Immature Granulocytes % (auto) 0.2 %; Lymphocytes # (auto) 1.22 K/uL (1.20-3.40); Lymphocytes % (auto) 13.1 %; Mean Corpuscular Hemoglobin 32.5 pg (25.0-34.0); Mean Corpuscular Hgb Conc 32.2 g/dL (32.0-36.0); Mean Corpuscular Volume 100.7 fL (80.0-100.0); Mean Platelet Volume 10.3 fL (9.4-12.4); Monocytes # (auto) 0.78 K/uL (0.11-0.59); Monocytes % (auto) 8.4 %; Neutrophils # (auto) 7.26 K/uL (1.40-6.50); Neutrophils % (auto) 78.1 %; Platelet Count 165 K/uL (130-400); RDW Coefficient of Variation 15.3 % (11.5-14.5); RDW Standard Deviation 56.5 fL (36.4-46.3); Red Blood Count 2.71 M/uL (4.20-5.40)
--- NOTE | 2023-12-30 19:46 | Critical Care Consultation ---
Date of Consultation December 30, 2023 Assessment & Plan (1) Acute on chronic respiratory failure with hypercapnia: Impression: 68-year-old female with interstitial lung disease, HTN, and admitted 2 days ago with constipation, UTI, and abscess of left finger with planned undergo I&D with Ortho tomorrow. Patient also with volume overload/anasarca and has developed worsening acute on chronic hypercapnic respiratory failure now moved to ICU for further management and currently requiring continuous BiPAP Neuro - AMSMost likely related to worsening hypercapnia with CO2 in the 80s. She is ANO x 3 at this point but continues to be drowsy and hard to stay awake during conversations. CT head negative for acute intracranial findings. She does have significant fatty liver disease and will check ammonia to see if that could be contributing. Appears to be improving. Monitor closely Cardiac - HTNhold antihypertensives for now as patient has had soft pressures and undergoing aggressive diuresis. Atrial fibrillationcurrently rate controlled. Continue Xarelto. Continuous ECG monitoring Respiratory - Acute on chronic hypercapnic respiratory failurepatient with underlying interstitial lung disease, recently seen in pulmonary clinic. She has undergone workup for lung transplant in the past but was not a candidate. She follows with rheumatology at [place], and currently undergoing management with mycophenolate. - Patient with significant volume overload/anasarca. Currently being foll owed with nephrology. Will give 80 mg IV Lasix and attempt to diurese as patient does have worsening pleural effusions noted on CT imaging which are likely contributing - Currently on continuous BiPAP. Initial blood gas with respiratory acidosis. Repeat ABG pending - Nebs as needed -Continue home dose regimen - Continuous monitoring on pulse ox GI - Duodenal stricture/SBO.Patient initially presented with constipation. CT abdomen pelvis with Dilated fluid-filled duodenum and jejunum proximal to the jejunojejunal anastomosis from previous gastric bypass surgery. - Previously evaluated by surgical team. Recommended n.p.o./bowel rest and enema/bowel regimen. She did have a bowel movement yesterday and appears to be improved at this time. -Will monitor closely and continue n.p.o. for now Hepatic steatosisLFTs appear to be normal. Trend. Will obtain ammonia level given altered mental status RENAL/LYTES - Anasarca/volume overloadpatient with progressive volume overload, currently being followed by nephrology and thought to be attributed to Hypoalbuminemia/malnourishment - Continue with albumin transfusions. Will also give IV Lasix for diuresis at this time - Creatinine 0.20 consistent with previous baselines. Monitor routine BMPs and replete electrolytes as indicated - Will hold on IV fluids despite being n.p.o. - Follow-up nephrology recommendations - Foleystrict I's and O's ENDO - TSH elevated at 9 with normal T4. No history of diabetes. Currently euglycemic. ICU hyperglycemic protocol HEME - H&H stable, monitor routine CBC ID - Left finger abscess/infectionpatient does not appear to be septic as she is currently afebrile with normal WBC and negative procalcitonin and normal lactate. - She has plan to undergo I&D with Ortho tomorrow - Will obtain blood cultures and continue with daptomycin for now UTIcontinue ceftriaxone LINES/IV ACCESS - Peripheral IVs DVT PROPHYLAXIS - Nemo Barlow Thank you for allowing us to participate in the care of this patient. Please refer to my attending physician's documentation for any further recommendations. (2) Finger infection: (3) Atrial fibrillation: (4) Duodenal stricture: (5) Anasarca: (6) Urinary tract infection: (7) Acute constipation: (8) Generalized weakness: (9) Pulmonary fibrosis: (10) Cachexia: Supervising Physician Co-Signing Physician Notes Patient seen and examined. EMR reviewed. Discussed with critical care DOMINIC. Agree with assessment plan as noted. Please refer to my progress note from 12/31/2023 for additional details History of Present Illness Attending Physician: Ricardo Pearson MD History of Present Illness Patient is 68-year-old female with past medical history of pulmonary hypertension, interstitial lung disease, scleroderma oh derma, HTN, A-fib, And recent admission with dyspnea and ambulatory dysfunction in which she was discharged to rehab, In which she was discharged home after 1 week. She presented to the emergency department 2 days ago with complaints of constipation and was evaluated by surgery, who recommended bowel rest. Patient also being treated for abscess of left finger with plan to undergo I&D tomorrow with Ortho, anasarca with volume overload and being followed by nephrology, and UTI currently on ceftriaxone. This afternoon patient became more drowsy, and blood gas revealed respiratory acidosis with CO2 in the 80s. She was transferred to ICU and placed on BiPAP. On arrival to the ICU the patient is drowsy but responsive on continuous BiPAP. She is alert and oriented x 3. She denies any headache or dizziness, syncopal events, shortness of breath, cough or congestion, chest pain or palpitations, abdominal pain, nausea or vomiting, or diarrhea. She does report feeling tired, and has difficulty maintaining conversation. Allergies Allergy/AdvReac Type Severity Reaction Status Date / Time simvastatin [From Zocor] Allergy Intermediate "made me Verified 12/16/23 14:44 pass out" ibuprofen Allergy Mild stomach Verified 12/16/23 14:44 pain naproxen [From Aleve] Allergy Mild STOMACH Verified 12/16/23 14:44 PAIN oxycodone [From Percocet] Allergy Mild stomach Verified 12/16/23 14:44 pain oyster extract AdvReac Gastrointestinal Verified 12/16/23 14:44 Upset scallops AdvReac Gastrointestinal Verified 12/16/23 14:44 Upset Home Medications Medication Instructions Recorded Confirmed Type tramadol 37.5 mg-acetaminophen 325 1 tab PO QID PRN pain #30 tabs 11/14/18 12/28/23 Rx mg tablet hydroxychloroquine 200 mg tablet 400 mg PO QPM 02/23/19 12/28/23 History rivaroxaban 20 mg tablet (Xarelto) 20 mg PO QPM 02/23/19 12/28/23 History lactase 3,000 unit tablet 3,000 units PO QID PRN Abdominal 05/08/19 12/28/23 History Discomfort multivitamin 1 tab PO QAM 05/08/19 12/28/23 History metoprolol succinate 100 mg 100 mg PO QPM 04/25/20 12/28/23 History tablet,extended release 24 hr Saccharomyces boulardii 250 mg 250 mg PO QAM 04/28/21 12/28/23 History capsule (Digest Probiotic (S.boulardii)) calcium carbonate 500 mg PO QAM 04/28/21 12/28/23 History cetirizine 10 mg capsule (Zyrtec) 10 mg PO QAM 04/28/21 12/28/23 History wxiwkexj-zwa-VU 200 mcg-vit K 15 1 tab PO QPM 04/28/21 12/28/23 History mcg-lycope 150 uwk-rhaojg-fqdd tablet (Ocuvite Eye Plus Multi) omeprazole 40 mg capsule,delayed 40 mg PO QAM 04/28/21 12/28/23 History release spironolactone 25 mg tablet 25 mg PO QAM 03/29/22 12/28/23 History zjxwy-n-smvtkazuseffl 450 unit 450 unit PO BIDWMEAL PRN .abd 05/28/22 12/28/23 History disintegrating tablet (Beano) bloating cyanocobalamin (vitamin B-12) 500 500 mcg PO DAILY 05/28/22 12/28/23 History mcg tablet lejukf-prttamvr-zxqxmpg 1 cap PO TID 05/28/22 12/28/23 History 6,000-19,000-30,000 unit capsule,delayed rel (Creon) mycophenolate mofetil 500 mg tablet 500 mg PO BID 05/28/22 12/28/23 History prednisolone acetate 1 % eye 1 drp OPB UD 05/28/22 12/28/23 History drops,suspension simethicone 80 mg chewable tablet 80 mg PO DIRECTED PRN 05/28/22 12/28/23 History .gas/bloating fluticasone 250 mcg-salmeterol 50 1 inh inhalation BID #180 puffs 11/08/22 12/28/23 Rx mcg/dose blistr powdr for inhalation (Advair Diskus) cholecalciferol (vitamin D3) 25 10,000 unit PO QAM 11/29/22 12/28/23 History mcg (1,000 unit) capsule (Vitamin D3) magnesium oxide 400 mg PO DAILY 06/16/23 12/28/23 History ondansetron HCl 4 mg tablet 4 mg PO Q6H PRN Nausea And Vomiting 06/16/23 12/28/23 History albuterol sulfate 1.25 mg/3 mL 2.5 mg inhalation QID 09/30/23 12/28/23 History solution for nebulization furosemide 20 mg tablet 20 mg PO QAM 11/14/23 12/28/23 History albuterol sulfate 90 mcg/actuation 1 puff inhalation Q6 PRN Shortness 12/28/23 12/28/23 History aerosol inhaler Of Breath ferrous sulfate 325 mg (65 mg 325 mg PO QAM 12/28/23 12/28/23 History iron) tablet (Iron (ferrous sulfate)) krill 1,000 mg-omega-3 170 mg-dha 1 cap PO DAILY 12/28/23 12/28/23 History 50 mg-epa 80 sd-vmbucx-kqckr capsule (krill oil) triamcinolone acetonide 55 mcg 2 sprays intranasal QAM 12/28/23 12/28/23 History nasal spray aerosol (Nasacort) Patient History Medical History Hyponatremia Constipation Macrocytic anemia Weakness Pallor Induration of periwound skin Pain of right scapula Hypokalemia Hypoxia Bronchitis due to human metapneumovirus (hMPV) Dyspnea on minimal exertion MONTES (dyspnea on exertion) Hypoxia Acute respiratory distress Acute bronchitis Regurgitation of food Encounter for pre-operative examination Acute upper respiratory infection Hypomagnesemia MONTES (dyspnea on exertion) Nausea Decreased appetite Hypomagnesemia Decubitus skin ulcer Hypertension Scleroderma History of COVID-fall Poor intravenous access "took 2 hours to get IV in for last procedure, finally needed the [place] machine to get in place, had to be put in by anesthesia" Environmental and seasonal allergies History of cardioversion x several Chronic back pain Chronic diarrhea Gastroparesis On anticoagulant therapy xarelto daily Surgical History No significant past surgical history S/P debridement (01/28/23) Abdominal Wall Wound Debridement, Skin, Subcutaneous, Fascia 15x8 - Rasheed Ward MD, FACS > pt still has at present, follows with wound clinic History of benign breast biopsy History of dilatation and curettage History of total right knee replacement (TKR) History of colonoscopy History of esophagogastroduodenoscopy (EGD) Status post fine needle biopsy on thyroid--all benign History of tooth extraction full upper History of bilateral cataract extraction History of cardiac radiofrequency ablation (~10/2020) [place] [facility] [place] of hand surgery finger surgery > right History of hernia repair History of cholecystectomy History of surgery Mutiple GI procedures for blocked bowel. History of gastric bypass raymundo-en-y Family History Father Hearing loss Brother Hearing loss Other Cancer Heart disease Hypertension No family history of adverse response to anesthesia No family history of bleeding disorder Stroke Social History Smoking Status: Never smoker Second Hand Exposure: No; Do You Dip or Chew Tobacco: No; Tobacco Cessation Education Requested by Patient: No Hx Alcohol Use: No Hx Substance Use: No Preferred Language: Bahamian Communication Ability: Effective Dish Network Installer Required: No Beliefs That Will Affect Care: None marital status: Single Current Living Situation: Alone Current Living Situation Comment: lives home alone current occupational status: retired Other Information That Helps Us Care for You: No Feels Safe at Home: Yes Safety Concerns: Feels Safe At This Time Diet: other Diet Comment: gastroparesis caffeine: Yes Assistive Devices: Walker Review of Systems Review of Systems: All systems reviewed & are unremarkable except as noted in HPI & below Physical Exam Eyes: PERRL, conjunctivae normal, anicteric sclerae ENMT: external ear and nose normal, oropharynx normal Neck: trachea midline, no thyromegaly Respiratory: Lungs clear but diminished in bases bilaterally, normal respiratory effort on B iPAP, Symmetrical chest wall movement. No use of accessory muscles Cardiovascular: Rate/Rhythm: regular rate and regular rhythm; not tachycardic Heart Sounds: normal S1 and normal S2; no murmur Anasarca/generalized edema Gastrointestinal (Abdomen): normal bowel sounds, soft, nontender, no hepatosplenomegaly Musculoskeletal: Generalized weakness, Cachexia, Generalized edema Skin: Warm, dry. Skin is thin with multiple areas of eschar on the lower extremities bilaterally. Pressure ulcer to the left buttock Neurologic: PERRL, EOMI, accommodation nl, no face palsy, no dysarthria Psychiatric: Orientation: oriented x 3 and cooperative Mood: + depressed mood Genitourinary: Indwelling Crocker catheter, urine yellow clear Results & Data Results & Data Vital Signs (Past 12 Hours) Vital Signs Temp Pulse Pulse Resp BP BP Pulse Ox 12/30/23 18:34 96/59 L 12/30/23 18:27 96 H 95 12/30/23 18:21 92 H 23 97 12/30/23 18:16 101/61 12/30/23 18:12 82 21 96 12/30/23 17:57 96 H 22 94 12/30/23 17:51 12/30/23 17:45 36.7 C 12/30/23 17:44 104/86 12/30/23 17:38 83 28 H 93 12/30/23 17:35 113/65 12/30/23 17:18 89 26 H 12/30/23 17:09 100 H 29 H 12/30/23 16:37 89 16 95 12/30/23 16:20 97 H 16 105/62 96 12/30/23 16:00 97 H 12/30/23 15:51 36.6 C 100 H 16 114/72 96 12/30/23 14:00 92 H 18 95 12/30/23 12:02 36.3 C L 105 H 16 114/72 97 12/30/23 11:14 101 H 19 94 12/30/23 08:18 36.4 C L 104 H 16 120/75 98 12/30/23 08:00 12/30/23 07:47 95 H O2 Del Method O2 Flow Rate FiO2 12/30/23 18:34 12/30/23 18:27 BiPAP 12/30/23 18:21 12/30/23 18:16 12/30/23 18:12 BiPAP 28 12/30/23 17:57 12/30/23 17:51 BiPAP 12/30/23 17:45 12/30/23 17:44 12/30/23 17:38 28 12/30/23 17:35 12/30/23 17:18 12/30/23 17:09 12/30/23 16:37 2 12/30/23 16:20 Nasal Cannula 2 12/30/23 16:00 12/30/23 15:51 Nasal Cannula 2 12/30/23 14:00 Nasal Cannula 2 12/30/23 12:02 Nasal Cannula 2 12/30/23 11:14 Nasal Cannula 2 12/30/23 08:18 Nasal Cannula 2 12/30/23 08:00 Nasal Cannula 2 12/30/23 07:47 Coding Level of Care Code 87949 IN/OBS CONSULT LVL 4,60M Diagnoses Acute on chronic respiratory failure with hypercapnia J96.22 Finger infection L08.9 Atrial fibrillation I48.91 Duodenal stricture K31.5 Anasarca R60.1 Urinary tract infection N39.0 Hematuria presence: without hematuria Urinary tract infection type: site unspecified Acute constipation K59.00 Generalized weakness R53.1 Pulmonary fibrosis J84.10 Cachexia R64 Time Spent (min) 62 (6) Urinary tract infection Hematuria presence: without hematuria Urinary tract infection type: site unspecified Qualified Code(s): N39.0 - Urinary tract infection, site not specified
[2023-12-30 20:06] LABS: Alanine Aminotransferase 29 U/L (7-52); Albumin Level 3.4 gm/dl (3.4-5.0); Alkaline Phosphatase 74 U/L (34-104); Anion Gap 3 (3-11); Aspartate Aminotransferase 20 U/L (13-39); Bilirubin,Total 0.8 mg/dl (0.2-1.0); Blood Urea Nitrogen 7 mg/dl (6-23); Calcium 8.3 mg/dl (8.6-10.3); Carbon Dioxide 42 mmol/L (21-32); Chloride 89 mmol/L (98-107); Creatinine Clr Calc Pharmacy 279.1 ml/min; Globulin 1.7 gm/dl (2.5-4.0); Glucose 86 mg/dl (70-99(Fasting)); Magnesium 1.6 mg/dl (1.7-2.4); Potassium 3.1 mmol/L (3.5-5.1); Sodium 134 mmol/L (136-145); Total Protein 5.1 gm/dl (6.0-8.3)
[2023-12-30] MEDS ORDERED: VANCOMYCIN CONSULT ACTIVE PRN (20:13)
[2023-12-30] MEDS ORDERED: VANCOMYCIN HCL 2,000 MG in DEXTROSE 5% 500 ML IV ONE (20:30)
[2023-12-30] MEDS: FUROSEMIDE 40 MG/4 ML VIAL IV ONE (20:30)
[2023-12-30] MEDS: MAGNESIUM SULFATE / D5W 1 GM/100 ML BAG IV SCH (20:59)
[2023-12-30] MEDS: POTASSIUM CHLORIDE 20 MEQ/15 ML UDC PO STA (21:01)
[2023-12-30] MEDS: DAPTOmycin 275 MG in SYRINGE 0 ML IV SCH (21:11)
[2023-12-30] MEDS: POTASSIUM CHLORIDE / WTR 10 MEQ/100 ML PLCT IV SCH (21:11)
[2023-12-30 22:09] LABS: Base Excess VBG 16.8 mEq/L; HCO3 VBG 46 mmol/L; Oxygen Saturation VBG < 60.0 %; PCO2 VBG 78 mmHg (38-50); PO2 VBG 38 mmHg; pH VBG 7.38 (7.36-7.41)
[2023-12-31 04:59] LABS: Basophils # (auto) 0.02 K/uL (0.00-0.20); Basophils % (auto) 0.2 %; Eosinophils # (auto) 0.03 K/uL (0.00-0.50); Eosinophils % (auto) 0.4 %; Hematocrit (blood only) 27.8 % (37.0-47.0); Hemoglobin 8.9 g/dl (12.0-16.0); Immature Granulocytes # (auto) 0.02 K/uL (0.01-0.20); Immature Granulocytes % (auto) 0.2 %; Lymphocytes # (auto) 1.08 K/uL (1.20-3.40); Lymphocytes % (auto) 13.2 %; Mean Corpuscular Hemoglobin 32.2 pg (25.0-34.0); Mean Corpuscular Volume 100.7 fL (80.0-100.0); Mean Platelet Volume 10.4 fL (9.4-12.4); Monocytes % (auto) 9.8 %; Neutrophils # (auto) 6.22 K/uL (1.40-6.50); Neutrophils % (auto) 76.2 %; Platelet Count 170 K/uL (130-400); RDW Coefficient of Variation 15.3 % (11.5-14.5); RDW Standard Deviation 56.8 fL (36.4-46.3); Red Blood Count 2.76 M/uL (4.20-5.40); White Blood Count 8.17 K/ul (4.8-10.8)
[2023-12-31 05:24] LABS: Calcium 8.2 mg/dl (8.6-10.3); Creatinine Clr Calc Pharmacy 279.1 ml/min; Phosphorus 3.6 mg/dl (2.5-4.9); Potassium 3.5 mmol/L (3.5-5.1)
--- NOTE | 2023-12-31 07:38 | Critical Care Progress Note ---
Date of Service December 31, 2023 Assessment & Plan (1) Acute on chronic respiratory failure with hypercapnia: Plan: Impression: 68-year-old female with interstitial lung disease, HTN, and admitted 2 days ago with constipation, UTI, and abscess of left finger with planned undergo I&D with Ortho tomorrow. Patient also with volume overload/anasarca and has developed worsening acute on chronic hypercapnic respiratory failure now moved to ICU for further management and currently requiring continuous BiPAP 24-hour events: Patient transferred to the ICU for monitoring on noninvasive positive pressure ventilation. She tolerated it well. She diuresed 6 L with Lasix and is feeling better this morning. Recommendations: Neuro - Encephalopathy resolved due to hypercarbia. The patient is stable this morning. Continue to follow clinically. Cardiac - Pulmonary hypertension noted on echocardiogram, possibly related to systemic sclerosis. Continue diuresis as tolerated. Even with the 6 L off, her creatinine this morning is normal. Would continue Diamox to prevent contraction alkalosis under the direction of nephrology. A-fib is rate controlled. She is anticoagulated. Respiratory - Acute on chronic hypercapnic respiratory failurepatient with underlying interstitial lung disease maintained on mycophenolate for ILD associated with systemic sclerosis. She has not shown significant progression. She had a prior history of sleep disordered breathing and may need to be reevaluated. Would avoid any respiratory suppressant medications including narcotics benzodiazepines etc.. With will use BiPAP 8/5 nightly. Recommend outpatient polysomnography once the patient is clinically stable. GI - Duodenal stricture/SBO.Patient initially presented with constipation. CT abdomen pelvis with Dilated fluid-filled duodenum and jejunum proximal to the jejunojejunal anastomosis from previous gastric bypass surgery. - Previously evaluated by surgical team. Recommended n.p.o./bowel rest and enema/bowel regimen. She did have a bowel movement yesterday and appears to be improved at this time. -Will monitor closely and continue n.p.o. for now RENAL/LYTES - Fluid overload: Continue diuresis with target net -1 to 2 L/day - Foleystrict I's and O's ENDO - TSH elevated at 9 with normal T4. No history of diabetes. Currently euglycemic. ICU hyperglycemic protocol HEME - H&H stable, monitor routine CBC ID - Finger abscess. Management per primary service and Ortho. UTIcontinue ceftriaxone LINES/IV ACCESS - Peripheral IVs DVT PROPHYLAXIS - SCDs, Xarelto Patient appears stable at this point in time. She is okay to transfer back to the floor. Follow-up for pulmonary (2) Finger infection: (3) Atrial fibrillation: (4) Duodenal stricture: (5) Anasarca: (6) Urinary tract infection: (7) Acute constipation: (8) Generalized weakness: (9) Pulmonary fibrosis: (10) Cachexia: Admission and Anticipated Discharge Date Admission Date: December 28, 2023 Subjective Patient seen and examined. EMR reviewed. Discussed with bedside critical care nurse as well as critical care overnight DOMINIC and on multidisciplinary rounds. Patient states she feels better this morning. Her sensorium is cleared. She diuresed appropriately. She was on noninvasive positive pressure ventilation overnight but is now off this morning. She had a prior history of sleep disordered breathing but lost significant amounts of weight and no longer requi red CPAP or BiPAP. She did use oxygen at night. Patient denies any coughing or wheezing. Her swelling is improved. Review of Systems Review of Systems: All systems reviewed & are unremarkable except as noted in Subjective Physical Exam Constitutional: WD/WN, vitals as above Neck: trachea midline, no thyromegaly Respiratory: no respiratory distress, no labored breathing, no cough and not tachypneic Auscultation: + crackles; no wheezes Cardiovascular: Rate/Rhythm: + tachycardic Heart Sounds: normal S1, normal S2 and + murmur Extremities: + edema Gastrointestinal (Abdomen): normal bowel sounds, soft, nontender, no hepatosplenomegaly Musculoskeletal: Extremities: extremities normal to inspection Skin: Sclerodactyly with changes consistent with systemic sclerosis. Neurologic: Nonfocal exam Lymphatic: no cervical lymphadenopathy Results & Data Results & Data Vital Signs (Past 12 Hours) Vital Signs Temp Pulse Pulse Pulse Resp BP Pulse Ox 12/31/23 07:02 101 H 27 H 97 12/31/23 06:00 37.3 C 97 H 26 H 84 L 12/31/23 05:45 93/49 L 12/31/23 05:45 37.3 C 95 H 23 97 12/31/23 05:30 95/48 L 12/31/23 05:30 37.3 C 88 23 98 12/31/23 05:21 37.3 C 91 H 27 H 97 12/31/23 05:16 88/45 L 12/31/23 04:30 93 H 22 98 12/31/23 04:08 37.2 C 90 25 H 95 12/31/23 04:00 98/53 L 12/31/23 03:59 37.3 C 89 23 95 12/31/23 03:35 37.2 C 87 22 94 12/31/23 03:30 93/53 L 12/31/23 03:20 37.2 C 97 H 30 H 96 12/31/23 03:05 37.2 C 90 25 H 96 12/31/23 03:00 93/44 L 12/31/23 02:36 37.0 C 90 22 97 12/31/23 02:32 37.0 C 92 H 26 H 97 12/31/23 02:30 95/53 L 12/31/23 02:12 36.9 C 85 24 96 12/31/23 02:05 36.9 C 86 24 96 12/31/23 01:53 36.9 C 85 22 96 12/31/23 01:30 36.8 C 86 25 H 97 12/31/23 01:30 99/56 L 12/31/23 01:30 99/56 L 12/31/23 01:30 99/56 L 12/31/23 01:00 87/46 L 12/31/23 01:00 36.8 C 85 22 96 12/31/23 00:36 36.8 C 89 21 96 12/31/23 00:30 85 23 100 12/31/23 00:24 36.7 C 85 23 96 12/31/23 00:00 90 12/31/23 00:00 114/56 L 12/30/23 23:48 36.7 C 88 98 12/30/23 23:36 36.7 C 90 22 98 12/30/23 23:30 106/60 12/30/23 23:15 36.6 C 84 20 96 12/30/23 23:00 36.6 C 95 H 16 97 12/30/23 23:00 112/52 L 12/30/23 22:30 36.6 C 20 94 12/30/23 22:30 107/68 12/30/23 22:06 36.5 C 87 21 98 12/30/23 21:30 115/58 L 12/30/23 21:13 117/69 12/30/23 21:09 89 18 100 12/30/23 21:06 36.4 C L 85 21 97 12/30/23 21:01 112/59 L 12/30/23 20:57 36.4 C L 84 22 97 12/30/23 20:30 91/51 L 12/30/23 20:30 36.4 C L 83 19 99 12/30/23 20:00 101/61 12/30/23 20:00 89 18 100 12/30/23 19:51 84 26 H 94 O2 Del Method FiO2 12/31/23 07:02 BiPAP 28 12/31/23 06:00 12/31/23 05:45 12/31/23 05:45 12/31/23 05:30 12/31/23 05:30 12/31/23 05:21 12/31/23 05:16 12/31/23 04:30 28 12/31/23 04:08 12/31/23 04:00 12/31/23 03:59 12/31/23 03:35 12/31/23 03:30 12/31/23 03:20 12/31/23 03:05 12/31/23 03:00 12/31/23 02:36 12/31/23 02:32 12/31/23 02:30 12/31/23 02:12 12/31/23 02:05 12/31/23 01:53 12/31/23 01:30 12/31/23 01:30 12/31/23 01:30 12/31/23 01:30 12/31/23 01:00 12/31/23 01:00 12/31/23 00:36 12/31/23 00:30 28 12/31/23 00:24 12/31/23 00:00 12/31/23 00:00 12/30/23 23:48 12/30/23 23:36 12/30/23 23:30 12/30/23 23:15 12/30/23 23:00 12/30/23 23:00 12/30/23 22:30 12/30/23 22:30 12/30/23 22:06 12/30/23 21:30 12/30/23 21:13 12/30/23 21:09 BiPAP 28 12/30/23 21:06 12/30/23 21:01 12/30/23 20:57 12/30/23 20:30 12/30/23 20:30 12/30/23 20:00 12/30/23 20:00 28 12/30/23 19:51 Critical Care Results & Data Vital Signs (Past 12 Hours) Vital Signs Temp Pulse Pulse Pulse Resp BP Pulse Ox 12/31/23 07:38 101 H 12/31/23 07:37 37.1 C 12/31/23 07:02 101 H 27 H 97 12/31/23 06:00 37.3 C 97 H 26 H 84 L 12/31/23 05:45 93/49 L 12/31/23 05:45 37.3 C 95 H 23 97 12/31/23 05:30 95/48 L 12/31/23 05:30 37.3 C 88 23 98 12/31/23 05:21 37.3 C 91 H 27 H 97 12/31/23 05:16 88/45 L 12/31/23 04:30 93 H 22 98 12/31/23 04:08 37.2 C 90 25 H 95 12/31/23 04:00 98/53 L 12/31/23 03:59 37.3 C 89 23 95 12/31/23 03:35 37.2 C 87 22 94 12/31/23 03:30 93/53 L 12/31/23 03:20 37.2 C 97 H 30 H 96 12/31/23 03:05 37.2 C 90 25 H 96 12/31/23 03:00 93/44 L 12/31/23 02:36 37.0 C 90 22 97 12/31/23 02:32 37.0 C 92 H 26 H 97 12/31/23 02:30 95/53 L 12/31/23 02:12 36.9 C 85 24 96 12/31/23 02:05 36.9 C 86 24 96 12/31/23 01:53 36.9 C 85 22 96 12/31/23 01:30 36.8 C 86 25 H 97 12/31/23 01:30 99/56 L 12/31/23 01:30 99/56 L 12/31/23 01:30 99/56 L 12/31/23 01:00 87/46 L 12/31/23 01:00 36.8 C 85 22 96 12/31/23 00:36 36.8 C 89 21 96 12/31/23 00:30 85 23 100 12/31/23 00:24 36.7 C 85 23 96 12/31/23 00:00 90 12/31/23 00:00 114/56 L 12/30/23 23:48 36.7 C 88 98 12/30/23 23:36 36.7 C 90 22 98 12/30/23 23:30 106/60 12/30/23 23:15 36.6 C 84 20 96 12/30/23 23:00 36.6 C 95 H 16 97 12/30/23 23:00 112/52 L 12/30/23 22:30 36.6 C 20 94 12/30/23 22:30 107/68 12/30/23 22:06 36.5 C 87 21 98 12/30/23 21:30 115/58 L 12/30/23 21:13 117/69 12/30/23 21:09 89 18 100 12/30/23 21:06 36.4 C L 85 21 97 12/30/23 21:01 112/59 L 12/30/23 20:57 36.4 C L 84 22 97 12/30/23 20:30 91/51 L 12/30/23 20:30 36.4 C L 83 19 99 12/30/23 20:00 101/61 12/30/23 20:00 89 18 100 12/30/23 19:51 84 26 H 94 O2 Del Method FiO2 12/31/23 07:38 12/31/23 07:37 12/31/23 07:02 BiPAP 28 12/31/23 06:00 12/31/23 05:45 12/31/23 05:45 12/31/23 05:30 12/31/23 05:30 12/31/23 05:21 12/31/23 05:16 12/31/23 04:30 28 12/31/23 04:08 12/31/23 04:00 12/31/23 03:59 12/31/23 03:35 12/31/23 03:30 12/31/23 03:20 12/31/23 03:05 12/31/23 03:00 12/31/23 02:36 12/31/23 02:32 12/31/23 02:30 12/31/23 02:12 12/31/23 02:05 12/31/23 01:53 12/31/23 01:30 12/31/23 01:30 12/31/23 01:30 12/31/23 01:30 12/31/23 01:00 12/31/23 01:00 12/31/23 00:36 12/31/23 00:30 28 12/31/23 00:24 12/31/23 00:00 12/31/23 00:00 12/30/23 23:48 12/30/23 23:36 12/30/23 23:30 12/30/23 23:15 12/30/23 23:00 12/30/23 23:00 12/30/23 22:30 12/30/23 22:30 12/30/23 22:06 12/30/23 21:30 12/30/23 21:13 12/30/23 21:09 BiPAP 28 12/30/23 21:06 12/30/23 21:01 12/30/23 20:57 12/30/23 20:30 12/30/23 20:30 12/30/23 20:00 12/30/23 20:00 28 12/30/23 19:51 Lab & Micro Results (Past 24 Hours) RBC 2.76 M/uL (4.20-5.40) L 12/31/23 WBC 8.17 K/ul (4.8-10.8) 12/31/23 Hgb 8.9 g/dl (12.0-16.0) L 12/31/23 Hct 27.8 % (37.0-47.0) L 12/31/23 MCV 100.7 fL (80.0-100.0) H 12/31/23 MCH 32.2 pg (25.0-34.0) 12/31/23 MCHC 32.0 g/dL (32.0-36.0) 12/31/23 RDW Standard Deviation 56.8 fL (36.4-46.3) H 12/31/23 RDW Coefficient of Variation 15.3 % (11.5-14.5) H 12/31/23 Plt Count 170 K/uL (130-400) 12/31/23 MPV 10.4 fL (9.4-12.4) 12/31/23 Neutrophils (%) (Auto) 76.2 % 12/31/23 Lymphocytes (%) (Auto) 13.2 % 12/31/23 Monocytes # (Auto) 0.80 K/uL (0.11-0.59) H 12/31/23 Eosinophils # (Auto) 0.03 K/uL (0.00-0.50) 12/31/23 Immature Granulocyte % (Auto) 0.2 % 12/31/23 Neutrophils # (Auto) 6.22 K/uL (1.40-6.50) 12/31/23 Lymphocytes # (Auto) 1.08 K/uL (1.20-3.40) L 12/31/23 Monocytes # (Auto) 0.80 K/uL (0.11-0.59) H 12/31/23 Eosinophils # (Auto) 0.03 K/uL (0.00-0.50) 12/31/23 Basophils # (Auto) 0.02 K/uL (0.00-0.20) 12/31/23 Immature Granulocyte # (Auto) 0.02 K/uL (0.01-0.20) 4 Na 138 mmol/L (136-145) 12/31/23 K 3.5 mmol/L (3.5-5.1) 12/31/23 Cl 90 mmol/L (98-107) L 12/31/23 CO2 45 mmol/L (21-32) H* 12/31/23 Anion Gap 3 (3-11) 12/31/23 BUN 7 mg/dl (6-23) 12/31/23 Creatinine 0.20 mg/dl (0.6-1.2) L 12/31/23 BUN/Creatinine Ratio 35.0 (10-20) H 12/31/23 Glu 75 mg/dl (70-99(Fasting)) 12/31/23 Ca 8.2 mg/dl (8.6-10.3) L 12/31/23 Phosphorus Level 3.6 mg/dl (2.5-4.9) 12/31/23 Total Bilirubin 0.8 mg/dl (0.2-1.0) 12/30/23 AST 20 U/L (13-39) 12/30/23 ALT 29 U/L (7-52) 12/30/23 Alkaline Phosphatase 74 U/L (34-104) 12/30/23 TP 5.1 gm/dl (6.0-8.3) L 12/30/23 Albumin 3.4 gm/dl (3.4-5.0) 12/30/23 Globulin 1.7 gm/dl (2.5-4.0) L 12/30/23 Albumin/Globulin Ratio 2.0 (0.9-2) 12/30/23 Mg 2.0 mg/dl (1.7-2.4) 12/31/23 04:27 Calcium Level 8.2 mg/dl (8.6-10.3) L 12/31/23 04:27 Venous Blood pH 7.38 (7.36-7.41) 12/30/23 22:00 Venous Blood Partial Pressure CO2 78 mmHg (38-50) H 12/30/23 22 :00 Venous Blood Partial Pressure O2 38 mmHg 12/30/23 22:00 Venous Blood HCO3 46 mmol/L 12/30/23 22:00 Venous Blood Base Excess 16.8 mEq/L 12/30/23 22:00 Venous Blood Oxygen Saturation < 60.0 % 12/30/23 22:00 Microbiology 12/27/23 22:56 Urine Culture - Final Urine,Straight Cath Proteus mirabilis Diagnostic Findings (Past 24 Hours) Chest CT 12/30/23 13:58 CT chest diagnostic wo con CLINICAL HISTORY: 68 years-old Female with hypoxia. Acute chest abdominal pain with hypoxia TECHNIQUE: Multiaxial CT images of the chest were performed without contrast. A dose lowering technique was utilized adhering to the principles of ALARA. COMPARISON: CT abdomen and pelvis study of same day and also 12/28/2023 CT chest 05/21/2022. FINDINGS: Peripherally calcified 1.6 cm right sided thyroid nodule. Moderate cardiomegaly with decreased attenuation of the cardiac blood pool suggestive of anemia. Moderate coronary artery calcifications. Atherosclerosis of the aorta with ectasia measuring up to 3.9 cm. No definite lymphadenopathy. Anasarca with moderate size layering pleural effusions, increased in size bilaterally compared to 12/28/2023 study. There is no pneumothorax identified. Intralobular septal thickening with intermixed groundglass and consolidative opacities which have also worsened from the 12/28/2023 CT abdomen and pelvis. Dense dependent bibasilar consolidation with air bronchograms, left greater than right. Mild bibasilar mucous plugging. Hepatic steatosis with anasarca. Gastric bypass with dilated air and fluid- filled loops of bowel in the upper abdomen. No acute fracture. Soft tissue calcifications within the right paraspinal tissues. IMPRESSION: 1. Cardiomegaly with worsening volume overload compared to the 12/28/2023 study. This includes interstitial and alveolar pulmonary edema, moderate sized pleural effusions with anasarca and small amount of upper abdominal ascites. 2. Dependent bibasilar consolidation, left greater than right is likely atelectatic. A superimposed pneumonia could appear similarly. 3. Please refer to the CT abdomen and pelvis study of same day for additional findings. ACT 112: Negative or not required by law. Electronically signed by: Eliecer Muro M.D. 12/30/2023 3:[address] 12/30/23 13:58 CT OF THE HEAD WITHOUT CONTRAST CLINICAL HISTORY: Altered mental status. COMPARISON STUDY: No previous studies for comparison. TECHNIQUE: Helical axial images of the head were obtained without IV contrast. Automated exposure control was utilized for the study. A dose lowering technique was utilized adhering to the principles of ALARA. FINDINGS: This exam is mildly compromised by motion artifact. No acute intracranial hemorrhage, midline shift or mass effect is present. The ventricular system is unremarkable. The basal cisterns are patent. No extra- axial collections are present. There are no findings to suggest acute dural sinus thrombosis or acute territorial infarct. No significant calvarial abnormalities are present. There is mild sinus mucosal thickening. IMPRESSION: No acute intracranial findings. Exam mildly compromised by motion artifact. ACT 112: Negative or not required by law. Electronically signed by: George Scott M.D. 12/30/2023 3:30 PM Abdomen/Pelvis CT 12/30/23 14:03 CT OF THE ABDOMEN AND PELVIS WITHOUT CONTRAST CLINICAL HISTORY: Worsening abdominal pain. COMPARISON STUDY: CT of the abdomen and pelvis and KUB December 28, 2023. TECHNIQUE: Axial images of the abdomen and pelvis were obtained without IV contrast. Images were reviewed in the axial, sagittal, and coronal planes. Automated exposure control was utilized for the study. A dose lowering technique was utilized adhering to the principles of ALARA. FINDINGS: Small bilateral pleural effusions have increased in size since CT of December 28, 2023. Associated lower lobe airspace opacities, greater on the left, with volume loss have also progressed. Interstitial thickening is noted. There is marked anasarca. Evaluation of the abdomen and pelvis is suboptimal on this unenhanced exam. Severe hepatic steatosis is noted. There is hepatomegaly. Unenhanced images of the spleen, adrenal glands and kidneys are unremarkable with exception of a low-attenuation right renal lesion consistent with a cyst. Pancreatic glandular atrophy is noted. No pancreatic ductal dilatation. Mild biliary ductal dilatation may be related to cholecystectomy. A small amount of abdominal and pelvic ascites has increased. There are postoperative findings consistent with Estrada-en-Y gastric bypass. As before, the proximal to mid duodenum is markedly dilated and fluid-filled. The proximal jejunum is also dilated and fluid-filled. The jejunojejunal anastomosis appears to be patent. No well-defined transition point is identified. Findings are relatively similar to an earlier CT of December 24, 2022. Cecum is abnormally positioned within the lower anterior abdomen. However, there is no CT evidence for a cecal volvulus at this time. The cecum is slightly distended. No fluid collections are identified. There is extensive vascular calcification. There is no lymphadenopathy. IMPRESSION: 1. Progression of volume overload since CT of December 28, 2023. Increase in size of small bilateral pleural effusions and associated bibasilar opacities with interstitial pulmonary edema. Increase in anasarca and a small amount of abdominal and pelvic ascites. 2. Status post Estrada-en-Y gastric bypass. Persistent markedly dilated fluid- filled duodenum and jejunum proximal to the jejunojejunal anastomosis. This dilatation is nonspecific and may be chronic when correlating with prior studies. A bowel obstruction is within the differential but no definite transition point to indicate an obstruction at this time. Continued imaging follow-up is recommended. 3. Abnormally positioned cecum within the lower anterior abdomen. Mild cecal dilatation without CT evidence for cecal volvulus. This can be assessed on follow-up imaging studies. 4. Severe hepatic steatosis. Hepatomegaly. ACT 112: Negative or not required by law. Electronically signed by: George Scott M.D. 12/30/2023 3:25 PM I & O Totals 24 Hours 12/30/23 12/31/23 01/01/24 06:59 06:59 05:59 Intake Total 1290 / 1290 937.500 / 937.500 Output Total 400 / 400 6250 / 6250 Balance 890 / 890 -5312.500 / -5312.500 Cumulative 12/27/23 22:15 thru 12/31/23 05:00 Intake Total 4647.500 Output Total 6650 Balance -2002.500 RT Ventilator Mngmt (Last Documented) Ventilator Ordered Settings Respiratory Rate 27 12/31/23 07:02 Fraction of Inspired Oxygen 28 12/31/23 07:02 Ventilator - PT Measurements Respiratory Rate 27 Coding Level of Care Code 97221 SUB INP/OBS CARE 3/50MIN Diagnoses Acute on chronic respiratory failure with hypercapnia J96.22 Finger infection L08.9 Atrial fibrillation I48.91 Duodenal stricture K31.5 Anasarca R60.1 Urinary tract infection N39.0 Hematuria presence: without hematuria Urinary tract infection type: site unspecified Acute constipation K59.00 Generalized weakness R53.1 Pulmonary fibrosis J84.10 Cachexia R64 (6) Urinary tract infection Hematuria presence: without hematuria Urinary tract infection type: site unspecified Qualified Code(s): N39.0 - Urinary tract infection, site not specified
[2023-12-31] MEDS: FUROSEMIDE 40 MG TAB PO SCH (09:07)
--- NOTE | 2023-12-31 09:18 | Anesthesiology Consultation ---
Date of Service December 31, 2023 Assessment & Plan Chart Review Chart Review: Acceptable Risk for Surgery and Patient NOT seen in Pre Admission Testing Consults Requested none ASA ASA4 Proposed Anesthesia Anesthesia Type: MAC History Surgery Operation Date: 12/31/23 07:30 Proposed Procedures p Incision and Drainage Left Middle Finger - Kulwinder Nieves, Height/Weight Height: 5 ft 5 in Weight: 81 kg Allergies Allergy/AdvReac Type Severity Reaction Status Date / Time simvastatin [From Zocor] Allergy Intermediate "made me Verified 12/16/23 14:44 pass out" ibuprofen Allergy Mild stomach Verified 12/16/23 14:44 pain naproxen [From Aleve] Allergy Mild STOMACH Verified 12/16/23 14:44 PAIN oxycodone [From Percocet] Allergy Mild stomach Verified 12/16/23 14:44 pain oyster extract AdvReac Gastrointestinal Verified 12/16/23 14:44 Upset scallops AdvReac Gastrointestinal Verified 12/16/23 14:44 Upset Medications Home Medications Medication Instructions Recorded Confirmed Last Taken tramadol 37.5 mg-acetaminophen 325 1 tab PO QID PRN pain #30 tabs 11/14/18 12/28/23 11/14/23 mg tablet 2 tabs hydroxychloroquine 200 mg tablet 400 mg PO QPM 02/23/19 12/28/23 06/27/23 20:00 rivaroxaban 20 mg tablet (Xarelto) 20 mg PO QPM 02/23/19 12/28/23 06/25/23 lactase 3,000 unit tablet 3,000 units PO QID PRN Abdominal 05/08/19 12/28/23 06/27/23 Discomfort multivitamin 1 tab PO QAM 05/08/19 12/28/23 06/26/23 metoprolol succinate 100 mg 100 mg PO QPM 04/25/20 12/28/23 06/28/23 20:00 tablet,extended release 24 hr Saccharomyces boulardii 250 mg 250 mg PO QAM 04/28/21 12/28/23 06/26/23 capsule (Digest Probiotic (S.boulardii)) calcium carbonate 500 mg PO QAM 04/28/21 12/28/23 11/14/23 cetirizine 10 mg capsule (Zyrtec) 10 mg PO QAM 04/28/21 12/28/2306/26/24 vdryrpkl-nwj-OF 200 mcg-vit K 15 1 tab PO QPM 04/28/21 12/28/23 06/26/23 mcg-lycope 150 ghy-jphxuk-xkye tablet (Ocuvite Eye Plus Multi) omeprazole 40 mg capsule,delayed 40 mg PO QAM 04/28/21 12/28/23 06/28/23 08:00 release spironolactone 25 mg tablet 25 mg PO QAM 03/29/22 12/28/23 06/27/23 ymhwe-a-zcfjulcxxquok 450 unit 450 unit PO BIDWMEAL PRN .abd 05/28/22 12/28/23 06/27/23 disintegrating tablet (Beano) bloating cyanocobalamin (vitamin B-12) 500 500 mcg PO DAILY 05/28/22 12/28/23 06/26/23 mcg tablet jwepjf-kxedzoze-qbtwjhp 1 cap PO TID 05/28/22 12/28/23 06/27/23 6,000-19,000-30,000 unit capsule,delayed rel (Creon) mycophenolate mofetil 500 mg tablet 500 mg PO BID 05/28/22 12/28/23 06/29/23 03:00 prednisolone acetate 1 % eye 1 drp OPB UD 05/28/22 12/28/23 06/27/23 drops,suspension simethicone 80 mg chewable tablet 80 mg PO DIRECTED PRN 05/28/22 12/28/23 06/26/23 .gas/bloating fluticasone 250 mcg-salmeterol 50 1 inh inhalation BID #180 puffs 11/08/22 12/28/23 06/28/23 20:00 mcg/dose blistr powdr for inhalation (Advair Diskus) cholecalciferol (vitamin D3) 25 10,000 unit PO QAM 11/29/22 12/28/23 11/14/23 mcg (1,000 unit) capsule (Vitamin D3) magnesium oxide 400 mg PO DAILY 06/16/23 12/28/23 06/26/23 ondansetron HCl 4 mg tablet 4 mg PO Q6H PRN Nausea And Vomiting 06/16/23 12/28/23 06/27/23 albuterol sulfate 1.25 mg/3 mL 2.5 mg inhalation QID 09/30/23 12/28/23 Unknown solution for nebulization furosemide 20 mg tablet 20 mg PO QAM 11/14/23 12/28/23 Unknown albuterol sulfate 90 mcg/actuation 1 puff inhalation Q6 PRN Shortness 12/28/23 12/28/23 Unknown aerosol inhaler Of Breath ferrous sulfate 325 mg (65 mg 325 mg PO QAM 12/28/23 12/28/23 Unknown iron) tablet (Iron (ferrous sulfate)) krill 1,000 mg-omega-3 170 mg-dha 1 cap PO DAILY 12/28/23 12/28/23 Unknown 50 mg-epa 80 tu-opwzne-empva capsule (krill oil) triamcinolone acetonide 55 mcg 2 sprays intranasal QAM 12/28/23 12/28/23 Unknown nasal spray aerosol (Nasacort) Active Medications Generic Name Dose Route Start Last Admin Trade Name Freq PRN Reason Stop Dose Admin Acetazolamide 250 mg 12/30/23 10:15 12/30/23 18:32 Acetazolamide 250 Mg Tab PO 01/29/24 10:14 Not Given BID17 SANJAY Albuterol 2.5 mg 12/28/23 07:00 12/31/23 07:02 Albuterol 0.083% Nebu Soln 3 Ml Vial INH 01/27/24 06:59 2.5 mg QIDR SANJAY Administration Lipase/Protease/Amylase 1 cap 12/28/23 08:00 12/31/23 09:08 Pancreaze (Lipase 4,200u) Cap PO 01/27/24 07:59 Not Given TIDM SANJAY Calcium Carbonate 500 mg 12/29/23 02:45 12/29/23 03:05 Calcium Carbonate 500 Mg Chewable Tab PO 01/28/24 02:44 500 mg Q4H PRN Administration Indigestion Cetirizine HCl 10 mg 12/28/23 09:00 12/30/23 08:39 Cetirizine Hcl 10 Mg Tablet PO 01/27/24 08:59 10 mg QAM SANJAY Administration Fluticasone Propionate 2 sprays 12/28/23 09:00 12/30/23 08:40 Fluticasone Propionate Na Spr 16 Gm Btl NA 01/27/24 08:59 2 sprays DAILY SANJAY Administration Fluticasone/Vilanterol 1 puffs 12/28/23 09:00 12/30/23 08:41 Fluticasone/Vilanterol 200/25mcg 14 Puffs/Inhaler INH 01/27/24 08:59 1 puffs DAILY SANJAY Administration Furosemide 40 mg 12/31/23 09:00 12/31/23 09:07 Furosemide 40 Mg Tab PO 01/30/24 08:59 40 mg QAM SANJAY Administration Hydroxychloroquine Sulfate 400 mg 12/28/23 21:00 12/30/23 21:01 Hydroxychloroquine Sulfate 200 Mg Tab PO 01/27/24 20:59 Not Given QPM SANJAY Ceftriaxone Sodium 2,000 mg in 50 mls @ 100 mls/hr 12/29/23 01:00 12/31/23 01:13 Rocephin IV 01/03/24 00:59 Infused Q24H SANJAY Infusion Pantoprazole Sodium 40 mg in 10 mls @ 5 mls/min 12/28/23 09:00 12/30/23 08:42 Protonix IV 01/27/24 08:59 5 mls/min DAILY SANJAY Administration Daptomycin 275 mg/ Syringe 5.5 mls @ 2.75 mls/min 12/30/23 21:00 12/30/23 21:11 IV 01/01/24 20:59 2.75 mls/min Q24H SANJAY Administration Protocol Metoprolol Succinate 100 mg 12/28/23 21:00 12/30/23 21:01 Metoprolol Succ 50mg Ext Rel Tab PO 01/27/24 20:59 Not Given QPM SANJAY Mycophenolate Mofetil 500 mg 12/28/23 09:00 12/30/23 21:01 Mycophenolate Mofetil 250 Mg Cap PO 01/27/24 08:59 Not Given BID SANJAY Ondansetron HCl 4 mg 12/28/23 01:53 12/30/23 00:58 Ondansetron Inj 2 Mg/Ml 2 Ml Vial IV 01/27/24 01:52 4 mg Q6H PRN Administration Nausea Polyethylene Glycol 17 gm 12/28/23 16:43 12/30/23 08:57 Polyethylene (Miralax) 17 Gm Pack PO 01/27/24 16:42 17 gm DAILY PRN Administration Constipation Prednisolone Acetate 1 drops 12/28/23 21:00 12/30/23 22:01 Prednisolone Acetate 1% Op Susp 5 Ml Btl OPL 01/27/24 20:59 1 drops HS SANJAY Administration Prednisolone Acetate 1 drops 12/28/23 09:00 12/31/23 09:14 Prednisolone Acetate 1% Op Susp 5 Ml Btl OPB 01/27/24 08:59 1 drops QAM SANJAY Administration Rivaroxaban 20 mg 12/28/23 16:30 12/30/23 18:32 Rivaroxaban 20 Mg Tab PO 01/27/24 16:29 Not Given QDD SANJAY Spironolactone 25 mg 12/28/23 09:00 12/30/23 08:43 Spironolactone 25 Mg Tab PO 01/27/24 08:59 25 mg QAM SANJAY Administration Past Medical History Medical History Hyponatremia Constipation Macrocytic anemia Weakness Pallor Induration of periwound skin Pain of right scapula Hypokalemia Hypoxia Bronchitis due to human metapneumovirus (hMPV) Dyspnea on minimal exertion MONTES (dyspnea on exertion) Hypoxia Acute respiratory distress Acute bronchitis Regurgitation of food Encounter for pre-operative examination Acute upper respiratory infection Hypomagnesemia MONTES (dyspnea on exertion) Nausea Decreased appetite Hypomagnesemia Decubitus skin ulcer Hypertension Scleroderma History of COVID-fall Poor intravenous access "took 2 hours to get IV in for last procedure, finally needed the [place] machine to get in place, had to be put in by anesthesia" Environmental and seasonal allergies History of cardioversion x several Chronic back pain Chronic diarrhea Gastroparesis On anticoagulant therapy xarelto daily Exercise / Class Metabolic Activity IV < 2 Limit ADL/Bedbound Past Family History Family History Father Hearing loss Brother Hearing loss Other Cancer Heart disease Hypertension No family history of adverse response to anesthesia No family history of bleeding disorder Stroke Past Surgical History Surgical History No significant past surgical history S/P debridement (01/28/23) Abdominal Wall Wound Debridement, Skin, Subcutaneous, Fascia 15x8 - Rasheed Ward MD, FACS > pt still has at present, follows with wound clinic History of benign breast biopsy History of dilatation and curettage History of total right knee replacement (TKR) History of colonoscopy History of esophagogastroduodenoscopy (EGD) Status post fine needle biopsy on thyroid--all benign History of tooth extraction full upper History of bilateral cataract extraction History of cardiac radiofrequency ablation (~10/2020) [address] [facility] [place] History of hand surgery finger surgery > right History of hernia repair History of cholecystectomy History of surgery Mutiple GI procedures for blocked bowel. History of gastric bypass raymundo-en-y Past Anesthesia History No Hx of Anesthesia Complications and No Family Hx of Anesthesia Complications History of PONV No Hx of PONV and No Hx of Motion Sickness Social History Smoking Status: Never smoker Do You Dip or Chew Tobacco: No Hx Alcohol Use: No Hx Substance Use: No substance use type: does not use Physical Exam Vital Signs Last Vital Signs Temp 37.5 C 12/31/23 08:03 Pulse 96 H 12/31/23 08:03 Resp 24 12/31/23 08:03 BP 105/63 12/31/23 08:00 Pulse Ox 100 12/31/23 08:03 O2 Del Method Nasal Cannula 12/31/23 08:03 O2 Flow Rate 4 12/31/23 08:03 FiO2 28 12/31/23 07:02 Testing Laboratory Results 12/31/23 04:27 12/31/23 04:27 Urine Color Yellow 12/29/23 16:10 Urine Appearance Clear (Clear) 12/29/23 16:10 Urine pH 6.0 (4.5-7.5) 12/29/23 16:10 Ur Specific [place] 1.005 (1.000-1.030) 12/29/23 16:10 Urine Protein Negative (Negative) 12/29/23 16:10 Urine Glucose (UA) Negative (Negative) 12/29/23 16:10 Urine Ketones Negative (Negative) 12/29/23 16:10 Urine Nitrite Negative (Negative) 12/29/23 16:10 Ur Leukocyte Esterase Trace (Negative) H 12/29/23 16:10 Urine WBC (Auto) 6-10 /hpf (0-5) H 12/29/23 16:10 Urine RBC (Auto) 0-2 /hpf (0-2) 12/29/23 16:10 U Hyaline Cast (Auto) 0-2 /lpf (0-2) 12/29/23 16:10 U Epithel Cells (Auto) 0-2 /hpf (0-2) 12/29/23 16:10 Urine Bacteria (Auto) None Seen (None Seen) 12/29/23 16:10 12/27/23 22:56 Urine Culture - Final Urine,Straight Cath Proteus mirabilis Electrocardiogram Date: 12/29/23 Findings: + NSR @ (@ 78 w/ marked SA;low voltage QRS) Echocardiogram Date: 11/15/23 EF: 55% LV Function: normal RWMA: + none Valvular Disease: + MR (mild) TR-mild RV-mildly dilated; RV sys Fxn NL RV sys pressure 30-40 Torr
--- NOTE | 2023-12-31 10:25 | XRay Report ---
XR finger(s) LT min 2V HISTORY: 68 years-old Female left middle finger felon acute pain of the left middle finger COMPARISON: None TECHNIQUE: 3 views of the left third finger FINDINGS: Demineralized appearance of the bones. Uann-me-hluhdpay multifocal osteoarthritis. Arterial calcifica tions. Moderate soft tissue swelling of the third finger with radiodense foci measuring up to 5 mm. N o acute fracture, dislocation or osseous erosion identified. IMPRESSION: 1. No acute fracture or dislocation. 2. Soft tissue swelling with numerous subcentimeter radiodense foci/calcifications within the soft ti ssues of the distal third finger. Correlate clinically to exclude scleroderma. 3. No osseous erosions identified. ACT 112: Negative or not required by law. The above report was generated using voice recognition software. It may contain grammatical, syntax o r spelling errors. Electronically signed by: Eliecer Muro M.D. 12/31/2023 10:22 AM
[2023-12-31] MEDS ORDERED: ePHEDrine sulfate 50 MG/ML AMP IV PRN (10:36)
[2023-12-31] MEDS ORDERED: ATROPINE SULFATE 0.1 MG/ML 10ML SYR IV PRN (10:36)
--- NOTE | 2023-12-31 11:03 | History & Physical Bridge Note ---
Date of Service December 31, 2023 History & Physical Bridge Note I have examined the patient, reviewed the History & Physical and in the interval since the performance of the History & Physical I have noted the following changes of clinical significance: no changes noted
--- NOTE | 2023-12-31 11:25 | XRay Report ---
XR chest 1V portable HISTORY: 68 years-old Female Resp failure acute shortness of breath COMPARISON: Chest CT 12/30/2023 TECHNIQUE: AP view of the chest FINDINGS: Cardiac silhouette is enlarged. Pulmonary vascular congestion with mixed interstitial and alveolar op acities. No pneumothorax. Persistent layering pleural effusions with bibasilar consolidation. Degener ative changes of the shoulders and spine. IMPRESSION: 1. No significant change of the cardiomegaly with mixed interstitial and alveolar opacities suggestiv e of pulmonary edema. Findings should be correlated clinically to exclude superimposed pneumonia. 2. Unchanged pleural effusions. ACT 112: Negative or not required by law. The above report was generated using voice recognition software. It may contain grammatical, syntax o r spelling errors. Electronically signed by: Eliecer Muro M.D. 12/31/2023 11:23 AM
--- NOTE | 2023-12-31 11:30 | Hospitalist Progress Note ---
Date of Service December 31, 2023 Assessment & Plan (1) Constipation: (2) Hyponatremia: (3) Pulmonary fibrosis: (4) Scleroderma: (5) Urinary tract infection: (6) Anasarca: (7) Felon of finger of left hand: (8) Acute respiratory failure with hypercapnia: Plan Pt is a 68 yo female with PMH of scleroderma (with associated pulmonary fibrosis), afib, and HTN presenting d/t constipation. Acute Respiratory Failure 2/[address] imaging demonstrates acute worsening of pulmonary edema with pleural effusion CO2 on chemistry remains elevated Bipap HS Continue diuresis with 40mg Lasix daily Crocker in place, strict I&O Constipation vs. SBO Clinical picture more consistent with constipation with large stool burden, has passed stool since manual disimpaction, enema by surgery KUB showed large, dilated loops of bowel; CTAP showing transition point in duodenum with concern for stricture vs. stenosis Subsequent KUB without evidence of obstruction but with remaining stool burden pt with significant past surgical hx of gastric bypass and multiple surgical interventions for bowel blockages Gen surg recommending no further intervention, may start oral bowel regimen now that patient is passing stool Given increased abdominal pain 12/30/23 repeat CTAP performed Progression of volume overload, increase in b/l pleural effusion, increase in pulmonary edema, increase in anasarca, and increase in abdominal and pelvic ascites Management as above Anasarca Nephrology consultation appreciated: likely manifestation of hypoalbuminemia 2/2 poor nutritional status IV albumin with goal of >4: will order 100g today and recheck labs in am, monitor for clinical response continue home spironolactone and lasix - will increase Lasix to 40mg daily follow urine output, BMP, serum albumin elevated BUN/Cr 2/2 low muscle mass in setting and poor protein absorption adding acetazolamide for metabolic alkalosis Hyponatremia Continues to up-trend suspect secondary to hypovolemia and malnurishment urine Na, osmolality and serum osmolality ordered Appears Hypotonic, hypervolemic hyponatremia trend labs Transaminitis known fatty liver re-demonstrated on CT mild ascites present on CT chronically elevated INR UTI pt notes increased urinary frequency over the last few days prior to hospitalization Now on daptomycin, change made by ICU Afib continue home Xarelto, metoprolol Felon ortho consult to OR 12/31/23 - drained and sutured with Tara drain in place HTN continue home spironolactone Scleroderma with associated pulmonary fibrosis pt follows with rheum as an outpatient continue home inhalers/medications nephrology recommends [facility] consultation. Reassess for SIBO. Diet: Full liquid, advance as tolerated Code: full VTE ppx: home xarelto Dispo: PCU Admission and Anticipated Discharge Date Admission Date: December 28, 2023 Supervising Physician Co-Signing Physician Notes Attending attestation Pt seen and examined in concert with Dr. Carranza. In agreement with the documented findings as noted in the resident documentation with any exceptions or additions as noted here. Significant improvement in somnolence and respiratory distress. Reports no abdominal pain, nausea, headache, vision/hearing changes or paresthesia. Still digital blocked with finger pain without issue. On examination, S1/S2 nl RRR no MCG. CTAB. Abd NT/ND BS+ve. 3rd left finger dressing C/D/I Acute hypoxic respiratory failure in the setting of pulmonary edema - pulmonology consult - ongoing diuresis from furosemide with improvement in oxygenation requirement Tachycardia in the setting of atrial fibrillation - likely intravascularly depleted - continue metoprolol and monitor on telemetry, consider v. small albumin bolus vs. LR vs. rate control Anasarca in the setting of metabolic alkalosis - s/p diamox and albumin - continue spironolactone and furosemide as above. Trend Cr daily Finger swelling - concerning for felon vs. abscess - XR finger - orthopaedics consult - s/p I&D. Pain control. Continue ceftriaxone, trend WBC Hypokalemia - replete, trend daily. Hyponatremia - resolved. LLQ abdominal pain in the setting of constipation vs. SBO with last BM yesterday - resolved w/ addressing AHRF, CT as noted. Else see resident documentation as noted. Subjective Patient seen and evaluated at bedside this morning. Respiratory status has improved this AM. Stable for downgrade from ICU. States she is feeling much better than yesterday. No acute complaints today. Plan is for OR to drain abscess on L middle finger. Diuresis resulted in -6L fluid balance. Vitals acceptable, fluctuates between afib and NSR. Labs demonstrate improving Na, persistant hypokalemia, magnesium repleted overnight, albumin remains persistantly low Review of Systems 2 Review of Systems: reviewed, per HPI Physical Exam Physical Exam: Constitutional: ill-appearing, no acute distress HEENT: NCAT, no conjunctival injection CV: irregularly irregular rate/rhythm, afib on monitor, anasarca in arms/legs, up to mid abdomen Resp: no increased work of breathing GI: TTP left side predominance MSK: felon of L 3rd finger, +cap refill Skin: warm, dry, no rash appreciated Neuro: somnolent Results & Data Results & Data Vital Signs (Past 12 Hours) Vital Signs Temp Pulse Pulse Pulse Resp BP BP 12/31/23 10:57 37 C 102 H 19 100/64 12/31/23 10:02 97 H 12/31/23 08:03 37.5 C 96 H 24 12/31/23 08:00 105/63 12/31/23 07:51 37.5 C 100 H 23 12/31/23 07:38 101 H 12/31/23 07:37 37.1 C 12/31/23 07:30 110/70 12/31/23 07:30 37.4 C 96 H 15 12/31/23 07:15 108/65 12/31/23 07:06 37.4 C 96 H 27 H 12/31/23 07:02 101 H 27 H 12/31/23 07:00 107/56 L 12/31/23 07:00 12/31/23 06:00 37.3 C 97 H 26 H 12/31/23 05:45 93/49 L 12/31/23 05:45 37.3 C 95 H 23 12/31/23 05:30 95/48 L 12/31/23 05:30 37.3 C 88 23 12/31/23 05:21 37.3 C 91 H 27 H 12/31/23 05:16 88/45 L 12/31/23 04:30 93 H 22 12/31/23 04:08 37.2 C 90 25 H 12/31/23 04:00 98/53 L 12/31/23 03:59 37.3 C 89 23 12/31/23 03:35 37.2 C 87 22 12/31/23 03:30 93/53 L 12/31/23 03:20 37.2 C 97 H 30 H 12/31/23 03:05 37.2 C 90 25 H 12/31/23 03:00 93/44 L 12/31/23 02:36 37.0 C 90 22 12/31/23 02:32 37.0 C 92 H 26 H 12/31/23 02:30 95/53 L 12/31/23 02:12 36.9 C 85 24 12/31/23 02:05 36.9 C 86 24 12/31/23 01:53 36.9 C 85 22 12/31/23 01:30 36.8 C 86 25 H 12/31/23 01:30 99/56 L 12/31/23 01:30 99/56 L 12/31/23 01:30 99/56 L 12/31/23 01:00 87/46 L 12/31/23 01:00 36.8 C 85 22 12/31/23 00:36 36.8 C 89 21 12/31/23 00:30 85 23 12/31/23 00:24 36.7 C 85 23 12/31/23 00:00 90 12/31/23 00:00 114/56 L 12/30/23 23:48 36.7 C 88 12/30/23 23:36 36.7 C 90 22 12/30/23 23:30 106/60 Pulse Ox O2 Del Method O2 Flow Rate FiO2 12/31/23 10:57 98 Nasal Cannula 2 12/31/23 10:02 12/31/23 08:03 100 Nasal Cannula 4 12/31/23 08:00 12/31/23 07:51 100 12/31/23 07:38 12/31/23 07:37 12/31/23 07:30 12/31/23 07:30 99 12/31/23 07:15 12/31/23 07:06 97 12/31/23 07:02 97 BiPAP 28 12/31/23 07:00 12/31/23 07:00 Nasal Cannula 4 12/31/23 06:00 84 L 12/31/23 05:45 12/31/23 05:45 97 12/31/23 05:30 12/31/23 05:30 98 12/31/23 05:21 97 12/31/23 05:16 12/31/23 04:30 98 28 12/31/23 04:08 95 12/31/23 04:00 12/31/23 03:59 95 12/31/23 03:35 94 12/31/23 03:30 12/31/23 03:20 96 12/31/23 03:05 96 12/31/23 03:00 12/31/23 02:36 97 12/31/23 02:32 97 12/31/23 02:30 12/31/23 02:12 96 12/31/23 02:05 96 12/31/23 01:53 96 12/31/23 01:30 97 12/31/23 01:30 12/31/23 01:30 12/31/23 01:30 12/31/23 01:00 12/31/23 01:00 96 12/31/23 00:36 96 12/31/23 00:30 100 28 12/31/23 00:24 96 12/31/23 00:00 12/31/23 00:00 12/30/23 23:48 98 12/30/23 23:36 98 12/30/23 23:30 Resident Activity Tracking Resident Involvement: Resident Care Provided Care Provided: Adult Hospital Medicine (5) Urinary tract infection Hematuria presence: without hematuria Urinary tract infection type: site unspecified Qualified Code(s): N39.0 - Urinary tract infection, site not specified
[2023-12-31] MEDS: LIDOCAINE 1% LOCAL 20 ML VIAL ONE (11:53)
--- NOTE | 2023-12-31 12:15 | Operative Report ---
PG Post Operative Report Pre & Post Diagnosis Operation Date: 12/31/23 07:30 Pre-Op Diagnosis: (1) Finger infection: Post-Op Diagnosis: (1) Finger infection: I identified the patient and participated in the time-out.: Yes Procedure Operation Date: 12/31/23 07:30 Actual Procedures p Incision and Drainage Left Middle Finger(Left) - Kulwinder Nieves DO Surgeon Kulwinder Nieves DO [employer] None Estimated Blood Loss 1 Findings Consistent with Post-Op Diagnosis Specimens Finger cultures Description of Procedure On December 31, 2023 Michelle was brought down from her hospital room to the preoperative holding area. The operative extremity identified and signed. She is taken back the operating room and left on the hospital bed. She was then given a digital block of the infected left middle finger. The left hand was prepped and draped sterile fashion. A timeout was done. The patient and the extremity was identified. A transverse incision was made directly over the large abscess on the pulp of her left middle finger. There was a large amount of purulent discharge. This was cultured. The wound was then irrigated with normal saline solution by bulb syringe. Once everything was irrigated out, 2 sutures were placed and a Arrington drain was placed. She was then placed in a soft dressing. She was then taken back to her hospital room. She tolerated the procedure well. I attest to the content of the Intraoperative Record and any orders documented therein. Any exceptions are noted below.
--- NOTE | 2023-12-31 13:22 | Anesthesiology Progress Note ---
Date of Service December 31, 2023 Anesthesia Post Procedure Vital Signs Vital Signs: Temp Pulse Pulse Pulse Resp BP BP 12/31/23 12:16 36.8 C 98 H 16 12/31/23 10:57 37 C 102 H 19 100/64 12/31/23 10:02 97 H 12/31/23 08:03 37.5 C 96 H 24 12/31/23 08:00 105/63 12/31/23 07:51 37.5 C 100 H 23 12/31/23 07:38 101 H 12/31/23 07:37 37.1 C 12/31/23 07:30 110/70 12/31/23 07:30 37.4 C 96 H 15 12/31/23 07:15 108/65 12/31/23 07:06 37.4 C 96 H 27 H 12/31/23 07:02 101 H 27 H 12/31/23 07:00 107/56 L 12/31/23 07:00 12/31/23 06:00 37.3 C 97 H 26 H 12/31/23 05:45 93/49 L 12/31/23 05:45 37.3 C 95 H 23 12/31/23 05:30 95/48 L 12/31/23 05:30 37.3 C 88 23 12/31/23 05:21 37.3 C 91 H 27 H 12/31/23 05:16 88/45 L 12/31/23 04:30 93 H 22 12/31/23 04:08 37.2 C 90 25 H 12/31/23 04:00 98/53 L 12/31/23 03:59 37.3 C 89 23 12/31/23 03:35 37.2 C 87 22 12/31/23 03:30 93/53 L 12/31/23 03:20 37.2 C 97 H 30 H 12/31/23 03:05 37.2 C 90 25 H 12/31/23 03:00 93/44 L 12/31/23 02:36 37.0 C 90 22 12/31/23 02:32 37.0 C 92 H 26 H 12/31/23 02:30 95/53 L 12/31/23 02:12 36.9 C 85 24 12/31/23 02:05 36.9 C 86 24 12/31/23 01:53 36.9 C 85 22 12/31/23 01:30 36.8 C 86 25 H 12/31/23 01:30 99/56 L 12/31/23 01:30 99/56 L 12/31/23 01:30 99/56 L 12/31/23 01:00 87/46 L 12/31/23 01:00 36.8 C 85 22 12/31/23 00:36 36.8 C 89 21 12/31/23 00:30 85 23 12/31/23 00:24 36.7 C 85 23 12/31/23 00:00 90 12/31/23 00:00 114/56 L 12/30/23 23:48 36.7 C 88 12/30/23 23:36 36.7 C 90 22 12/30/23 23:30 106/60 12/30/23 23:15 36.6 C 84 20 12/30/23 23:00 36.6 C 95 H 16 12/30/23 23:00 112/52 L 12/30/23 22:30 36.6 C 20 12/30/23 22:30 107/68 12/30/23 22:06 36.5 C 87 21 12/30/23 21:30 115/58 L 12/30/23 21:13 117/69 12/30/23 21:09 89 18 12/30/23 21:06 36.4 C L 85 21 12/30/23 21:01 112/59 L 12/30/23 20:57 36.4 C L 84 22 12/30/23 20:30 91/51 L 12/30/23 20:30 36.4 C L 83 19 12/30/23 20:00 101/61 12/30/23 20:00 89 18 12/30/23 19:51 84 26 H 12/30/23 19:30 12/30/23 19:30 101/52 L 12/30/23 19:27 87 23 12/30/23 19:09 77 25 H 12/30/23 19:00 103/62 12/30/23 18:34 96/59 L 12/30/23 18:27 96 H 12/30/23 18:21 92 H 23 12/30/23 18:16 101/61 12/30/23 18:12 82 21 12/30/23 17:57 96 H 22 12/30/23 17:51 12/30/23 17:45 36.7 C 12/30/23 17:44 104/86 12/30/23 17:38 83 28 H 12/30/23 17:35 113/65 12/30/23 17:18 89 26 H 12/30/23 17:09 100 H 29 H 12/30/23 16:37 89 16 12/30/23 16:20 97 H 16 105/62 12/30/23 16:00 97 H 12/30/23 15:51 36.6 C 100 H 16 114/72 12/30/23 14:00 92 H 18 BP Pulse Ox O2 Del Method O2 Flow Rate FiO2 12/31/23 12:16 109/70 98 Nasal Cannula 2 12/31/23 10:57 98 Nasal Cannula 2 12/31/23 10:02 12/31/23 08:03 100 Nasal Cannula 4 12/31/23 08:00 12/31/23 07:51 100 12/31/23 07:38 12/31/23 07:37 12/31/23 07:30 12/31/23 07:30 99 12/31/23 07:15 12/31/23 07:06 97 12/31/23 07:02 97 BiPAP 28 12/31/23 07:00 12/31/23 07:00 Nasal Cannula 4 12/31/23 06:00 84 L 12/31/23 05:45 12/31/23 05:45 97 12/31/23 05:30 12/31/23 05:30 98 12/31/23 05:21 97 12/31/23 05:16 12/31/23 04:30 98 28 12/31/23 04:08 95 12/31/23 04:00 12/31/23 03:59 95 12/31/23 03:35 94 12/31/23 03:30 12/31/23 03:20 96 12/31/23 03:05 96 12/31/23 03:00 12/31/23 02:36 97 12/31/23 02:32 97 12/31/23 02:30 12/31/23 02:12 96 12/31/23 02:05 96 12/31/23 01:53 96 12/31/23 01:30 97 12/31/23 01:30 12/31/23 01:30 12/31/23 01:30 12/31/23 01:00 12/31/23 01:00 96 12/31/23 00:36 96 12/31/23 00:30 100 28 12/31/23 00:24 96 12/31/23 00:00 12/31/23 00:00 12/30/23 23:48 98 12/30/23 23:36 98 12/30/23 23:30 12/30/23 23:15 96 12/30/23 23:00 97 12/30/23 23:00 12/30/23 22:30 94 12/30/23 22:30 12/30/23 22:06 98 12/30/23 21:30 12/30/23 21:13 12/30/23 21:09 100 BiPAP 28 12/30/23 21:06 97 12/30/23 21:01 12/30/23 20:57 97 12/30/23 20:30 12/30/23 20:30 99 12/30/23 20:00 12/30/23 20:00 100 28 12/30/23 19:51 94 12/30/23 19:30 BiPAP 12/30/23 19:30 12/30/23 19:27 97 12/30/23 19:09 98 12/30/23 19:00 12/30/23 18:34 12/30/23 18:27 95 BiPAP 12/30/23 18:21 97 12/30/23 18:16 12/30/23 18:12 96 BiPAP 28 12/30/23 17:57 94 12/30/23 17:51 BiPAP 12/30/23 17:45 12/30/23 17:44 12/30/23 17:38 93 28 12/30/23 17:35 12/30/23 17:18 12/30/23 17:09 12/30/23 16:37 95 2 12/30/23 16:20 96 Nasal Cannula 2 12/30/23 16:00 12/30/23 15:51 96 Nasal Cannula 2 12/30/23 14:00 95 Nasal Cannula 2 Pain Intensity Abdomen: Pain Intensity: 5 Transfer of Care Handoff Completed per policy Notes Mental Status: alert / awake / arousable Patient Amnestic to Procedure: Yes Nausea / Vomiting: adequately controlled Pain: adequately controlled Airway Patency, RR, SpO2: stable & adequate BP & HR: stable & adequate Hydration State: stable & adequate Anesthetic Complications: no major complications apparent
[2023-12-31 15:22] LABS: BUN Creatinine Ratio 31.8 (10-20); Calcium 8.3 mg/dl (8.6-10.3); Creatinine Clr Calc Pharmacy 253.7 ml/min; Potassium 3.4 mmol/L (3.5-5.1)
[2023-12-31] MEDS: ACETAMINOPHEN 325 MG TAB PO PRN (16:27)
[2023-12-31] MEDS: POTASSIUM CHLORIDE CRTAB 20 MEQ TABCR PO STA (16:27)
[2024-01-01 05:17] LABS: Basophils # (auto) 0.03 K/uL (0.00-0.20); Basophils % (auto) 0.3 %; Eosinophils # (auto) 0.05 K/uL (0.00-0.50); Eosinophils % (auto) 0.5 %; Hematocrit (blood only) 27.2 % (37.0-47.0); Hemoglobin 9.1 g/dl (12.0-16.0); Immature Granulocytes # (auto) 0.03 K/uL (0.01-0.20); Immature Granulocytes % (auto) 0.3 %; Lymphocytes # (auto) 1.14 K/uL (1.20-3.40); Lymphocytes % (auto) 11.2 %; Mean Corpuscular Hemoglobin 32.6 pg (25.0-34.0); Mean Corpuscular Hgb Conc 33.5 g/dL (32.0-36.0); Mean Corpuscular Volume 97.5 fL (80.0-100.0); Monocytes # (auto) 1.01 K/uL (0.11-0.59); Monocytes % (auto) 9.9 %; Neutrophils # (auto) 7.92 K/uL (1.40-6.50); Neutrophils % (auto) 77.8 %; Platelet Count 135 K/uL (130-400); RDW Coefficient of Variation 15.5 % (11.5-14.5); RDW Standard Deviation 55.5 fL (36.4-46.3); Red Blood Count 2.79 M/uL (4.20-5.40); White Blood Count 10.18 K/ul (4.8-10.8)
[2024-01-01 05:30] LABS: Anion Gap 3 (3-11); Calcium 8.3 mg/dl (8.6-10.3); Carbon Dioxide 39 mmol/L (21-32); Chloride 94 mmol/L (98-107); Magnesium 1.9 mg/dl (1.7-2.4); Potassium 3.9 mmol/L (3.5-5.1); Sodium 136 mmol/L (136-145)
[2024-01-01 05:40] LABS: Blood Urea Nitrogen 8 mg/dl (6-23); Creatinine Clr Calc Pharmacy 265.8 ml/min; Glucose 79 mg/dl (70-99(Fasting)); Phosphorus 3.2 mg/dl (2.5-4.9)
--- NOTE | 2024-01-01 07:11 | Orthopedic Progress Note ---
Date of Service January 01, 2024 Assessment & Plan (1) Jermaine of finger of left hand: Overall she is doing well with regards to her finger. She will remain on the IV antibiotics. I will remove her dressing tomorrow and pulled the drain. I would likely just place a Band-Aid over it at that point. Kristel Martinez was seen and examined at bedside this morning. Overall she is doing fairly well. She has much less pain in her finger. She has no new complaints.. Review of Systems All systems reviewed & are unremarkable except as noted in HPI & below. Physical Exam On physical exam of the left finger, the dressing is clean and dry.. Results & Data Results & Data Laboratory Results . Diagnostic Findings . PG Care Time/CCT Total # of Minutes Spent Total Time Spent with Patient: Total time spent is greater than 50% in coordination of care (as documented) at patient's floor/unit and/or counseling patient: Coding Level of Care Code 38878 Post Operative Follow-Up Diagnoses Jermaine of finger of left hand L03.012
[2024-01-01] MEDS: POLYETHYLENE (MIRALAX) 17 GM PACK PO SCH (08:56)
--- NOTE | 2024-01-01 09:33 | Pulmonology Progress Note ---
Date of Service January 01, 2024 Assessment & Plan (1) Acute on chronic respiratory failure with hypercapnia: Plan: Impression: 68-year-old female with interstitial lung disease, HTN, and admitted 2 days ago with constipation, UTI, and abscess of left finger with planned undergo I&D with Ortho tomorrow. Patient also with volume overload/anasarca and has developed worsening acute on chronic hypercapnic respiratory failure now moved to ICU for further management and currently requiring continuous BiPAP Recommendations: 1. Hypoxemic and hypercarbic respiratory failure: Continue nocturnal BiPAP. The patient has a history of sleep disordered breathing previously but discontinued it when she lost weight. Recommend outpatient repeat polysomnography once the patient is clinically stable. Continue to avoid any respiratory suppressant medications including narcotics or benzodiazepines. Patient may require oxygen at discharge. Unclear if she would qualify for BiPAP without polysomnography 2. Recommend getting the patient out of bed to chair is much as possible and ambulate. 3. Interstitial lung disease: Followed at [place] and here. Secondary to systemic sclerosis. Continue mycophenolate. PFTs have been relatively stable. 4. Pulmonary hypertension: Likely multifactorial including diastolic dysfunction (E to E prime ratio 11.6) and hypoxemic and hypercarbic respiratory failure as well as systemic sclerosis. Valvular heart disease also potentially contributing. Would continue with diuretics. No indication for pulmonary vasodilators or additional studies currently until the patient is euvolemic. Repeat echocardiogram in 3 to 4 months. Patient appears clinically improving. Will continue to follow with you. Feel free to contact us with questions or concerns (2) Finger infection: (3) Atrial fibrillation: (4) Duodenal stricture: (5) Anasarca: (6) Urinary tract infection: Hematuria presence: without hematuria Urinary tract infection type: site unspecified Qualified Code(s): N39.0 - Urinary tract infection, site not specified (7) Acute constipation: (8) Generalized weakness: (9) Pulmonary fibrosis: (10) Cachexia: Admission and Anticipated Discharge Date Admission Date: December 28, 2023 Subjective Patient seen and examined. EMR reviewed. The patient used BiPAP last night. She felt that it was effective in improving her breathing. She is doing well this morning. She denies any new respiratory complaints. She is not coughing wheezing or expectorating significant phlegm. Her oxygen requirement is resolving. She appears to be responding favorably. Review of Systems 2 Review of Systems: All systems reviewed & are unremarkable except as noted in Subjective Physical Exam 2 Constitutional: WD/WN, vitals as above Neck: trachea midline, no thyromegaly Respiratory: no respiratory distress, no labored breathing, no cough and not tachypneic Auscultation: + crackles; no wheezes Cardiovascular: Rate/Rhythm: + tachycardic Heart Sounds: normal S1, normal S2 and + murmur Extremities: + edema Gastrointestinal (Abdomen): normal bowel sounds, soft, nontender, no hepatosplenomegaly Musculoskeletal: Extremities: extremities normal to inspection Lymphatic: no cervical lymphadenopathy Results & Data Results & Data Vital Signs (Past 12 Hours) Vital Signs Temp Pulse Pulse Resp BP Pulse Ox O2 Del Method 01/01/24 09:06 90 01/01/24 09:06 Nasal Cannula 01/01/24 07:19 37.0 C 93 H 18 105/68 97 BiPAP 01/01/24 07:13 90 01/01/24 06:58 99 H 26 H 95 BiPAP 01/01/24 06:58 99 H 27 H 95 01/01/24 03:05 37.0 C 91 H 18 99/62 L 95 BiPAP 01/01/24 02:42 86 24 93 12/31/23 23:10 36.7 C 88 20 101/66 95 BiPAP 12/31/23 23:00 88 12/31/23 22:49 107 H 28 H 93 O2 Flow Rate FiO2 01/01/24 09:06 01/01/24 09:06 1 01/01/24 07:19 27 01/01/24 07:13 01/01/24 06:58 28 01/01/24 06:58 28 01/01/24 03:05 01/01/24 02:42 28 12/31/23 23:10 12/31/23 23:00 12/31/23 22:49 28 Laboratory Results 01/01/24 04:39 01/01/24 04:39 Diagnostic Findings No new imaging PG Care Time/CCT Total # of Minutes Spent Total Time Spent with Patient: Total time spent is greater than 50% in coordination of care (as documented) at patient's floor/unit and/or counseling patient: Coding Level of Care Code 26817 SUB INP/OBS CARE 2/35MIN Diagnoses Acute on chronic respiratory failure with hypercapnia J96.22 Finger infection L08.9 Atrial fibrillation I48.91 Duodenal stricture K31.5 Anasarca R60.1 Urinary tract infection N39.0 Hematuria presence: without hematuria Urinary tract infection type: site unspecified Acute constipation K59.00 Generalized weakness R53.1 Pulmonary fibrosis J84.10 Cachexia R64
--- NOTE | 2024-01-01 12:07 | Hospitalist Progress Note ---
Date of Service January 01, 2024 Assessment & Plan (1) Constipation: (2) Hyponatremia: (3) Pulmonary fibrosis: (4) Scleroderma: (5) Urinary tract infection: (6) Anasarca: (7) Felon of finger of left hand: (8) Acute respiratory failure with hypercapnia: Plan Pt is a 68 yo female with PMH of scleroderma (with associated pulmonary fibrosis), afib, and HTN presenting d/t constipation. Acute Respiratory Failure 2/[address] imaging demonstrates acute worsening of pulmonary edema with pleural effusion CO2 on chemistry remains elevated Bipap HS Continue diuresis with 40mg Lasix PO daily Crocker in place, strict I&O Constipation vs. SBO Clinical picture more consistent with constipation with large stool burden, has passed stool since manual disimpaction, enema by surgery KUB showed large, dilated loops of bowel; CTAP showing transition point in duodenum with concern for stricture vs. stenosis Subsequent KUB without evidence of obstruction but with remaining stool burden pt with significant past surgical hx of gastric bypass and multiple surgical interventions for bowel blockages Gen surg recommending no further intervention, may start oral bowel regimen now that patient is passing stool Given increased abdominal pain 12/30/23 repeat CTAP performed Progression of volume overload, increase in b/l pleural effusion, increase in pulmonary edema, increase in anasarca, and increase in abdominal and pelvic ascites Management as above Anasarca Nephrology consultation appreciated: likely manifestation of hypoalbuminemia 2/2 poor nutritional status IV albumin with goal of >4: will hold off on further IV supplementation as diet is advanced, continue to monitor daily continue home spironolactone and lasix - will increase Lasix to 40mg daily follow urine output, BMP, serum albumin elevated BUN/Cr 2/2 low muscle mass in setting and poor protein absorption adding acetazolamide for metabolic alkalosis Hyponatremia Resolved suspect secondary to hypovolemia and malnurishment urine Na, osmolality and serum osmolality ordered Appears Hypotonic, hypervolemic hyponatremia trend labs Transaminitis known fatty liver re-demonstrated on CT mild ascites present on CT chronically elevated INR UTI pt notes increased urinary frequency over the last few days prior to hospitalization Now on daptomycin, change made by ICU Afib continue home Xarelto, metoprolol Felon to OR 12/31/23 - drained and sutured with [place] drain in place culture growing staph aureus, follow sensitivities pre-op xr demonstrates calcifications consistent with scleroderma HTN continue home spironolactone Scleroderma with associated pulmonary fibrosis pt follows with rheum as an outpatient continue home inhalers/medications nephrology recommends [facility] consultation. Reassess for SIBO. Diet: Full liquid, advance as tolerated Code: full VTE ppx: home xarelto Dispo: PCU Admission and Anticipated Discharge Date Admission Date: December 28, 2023 Supervising Physician Co-Signing Physician Notes Attending attestation Pt seen and examined in concert with Dr. Carranza. In agreement with the documented findings as noted in the resident documentation with any exceptions or additions as noted here. Ongoing improvement in swelling and respiratory distress. + BM after escalation of laxative. Reports no abdominal pain, nausea, headache, vision/hearing changes or paresthesia. On examination, S1/S2 nl RRR no MCG. CTAB. Abd NT, distended but improved, BS+ ve. 3rd left finger dressing C/D/I. Acute hypoxic respiratory failure in the setting of pulmonary edema - pulmonology consult - ongoing diuresis from furosemide with improvement in oxygenation requirement, continue O2 wean Tachycardia in the setting of atrial fibrillation - improving without direct intervention Anasarca in the setting of metabolic alkalosis - s/p diamox and albumin - continue spironolactone and furosemide as above. Trend Cr daily Felon, L 3rd digit - XR finger - orthopaedics consult - s/p I&D. Pain control. Continue ceftriaxone, trend WBC Hypokalemia - replete, trend daily. Hyponatremia - resolved. LLQ abdominal pain in the setting of constipation vs. SBO - improving with miralax Else see resident documentation as noted. Subjective Patient seen and evaluated at bedside this morning. No acute events overnight. States she is feeling better today. Eager to attempt to advance diet. Finger with post-op pain. Feels bipap hs is helping with her breathing during the day and she is tolerating it well. States abdominal pain is improved from prior. VSS. Remains in afib. CO2 with some improvement on chemistry. Review of Systems Review of Systems: reviewed, per HPI Physical Exam Physical Exam: Constitutional: ill-appearing, no acute distress HEENT: NCAT, no conjunctival injection CV: irregularly irregular rate/rhythm, afib on monitor, anasarca in arms/legs, up to mid abdomen Resp: no increased work of breathing GI: TTP left side predominance MSK: felon of L 3rd finger, +cap refill Skin: warm, dry, no rash appreciated Neuro: somnolent Results & Data Results & Data Vital Signs (Past 12 Hours) Vital Signs Temp Pulse Pulse Resp BP Pulse Ox O2 Del Method 01/01/24 11:40 36.7 C 93 H 19 104/66 95 Nasal Cannula 01/01/24 10:54 91 H 17 93 Nasal Cannula 01/01/24 09:06 90 01/01/24 09:06 Nasal Cannula 01/01/24 07:19 37.0 C 93 H 18 105/68 97 BiPAP 01/01/24 07:13 90 01/01/24 06:58 99 H 26 H 95 BiPAP 01/01/24 06:58 99 H 27 H 95 01/01/24 03:05 37.0 C 91 H 18 99/62 L 95 BiPAP 01/01/24 02:42 86 24 93 O2 Flow Rate FiO2 01/01/24 11:40 1.5 01/01/24 10:54 1 01/01/24 09:06 01/01/24 09:06 1 01/01/24 07:19 27 01/01/24 07:13 01/01/24 06:58 28 01/01/24 06:58 28 01/01/24 03:05 01/01/24 02:42 28 Resident Activity Tracking Resident Involvement: Resident Care Provided Care Provided: Adult Hospital Medicine (5) Urinary tract infection Hematuria presence: without hematuria Urinary tract infection type: site unspecified Qualified Code(s): N39.0 - Urinary tract infection, site not specified
--- NOTE | 2024-01-01 17:30 | Electrocardiogram Report ---
Test Reason : Blood Pressure : */* mmHG Vent. Rate : 106 BPM Atrial Rate : 214 BPM P-R Int : * ms QRS Dur : 78 ms QT Int : 384 ms P-R-T Axes : * 94 82 degrees QTcB Int : 510 ms Poor data quality, interpretation may be adversely affected Multifocal atrial tachycardia Rightward axis Anterior infarct (cited on or before 23-Feb-2019) Abnormal ECG When compared with ECG of 29-Dec-2023 15:03, MAT has replaced Sinus rhythm Nonspecific T wave abnormality now evident in Inferior leads T wave inversion now evident in Lateral leads Confirmed by Araceli Oneil (Angela) on 01/01/2024 5:30:25 PM Referred By: REFERRED SELF Confirmed By: Araceli Oneil
[2024-01-02 05:15] LABS: Basophils # (auto) 0.03 K/uL (0.00-0.20); Basophils % (auto) 0.3 %; Eosinophils # (auto) 0.05 K/uL (0.00-0.50); Eosinophils % (auto) 0.5 %; Hematocrit (blood only) 27.4 % (37.0-47.0); Hemoglobin 8.9 g/dl (12.0-16.0); Immature Granulocytes # (auto) 0.03 K/uL (0.01-0.20); Immature Granulocytes % (auto) 0.3 %; Lymphocytes # (auto) 1.32 K/uL (1.20-3.40); Mean Corpuscular Hemoglobin 32.1 pg (25.0-34.0); Mean Corpuscular Hgb Conc 32.5 g/dL (32.0-36.0); Mean Corpuscular Volume 98.9 fL (80.0-100.0); Mean Platelet Volume 10.9 fL (9.4-12.4); Monocytes # (auto) 1.06 K/uL (0.11-0.59); Monocytes % (auto) 9.7 %; Neutrophils # (auto) 8.48 K/uL (1.40-6.50); Neutrophils % (auto) 77.2 %; Platelet Count 161 K/uL (130-400); RDW Standard Deviation 54.6 fL (36.4-46.3); Red Blood Count 2.77 M/uL (4.20-5.40); White Blood Count 10.97 K/ul (4.8-10.8)
[2024-01-02 05:33] LABS: Anion Gap 4 (3-11); Blood Urea Nitrogen 10 mg/dl (6-23); Calcium 8.3 mg/dl (8.6-10.3); Carbon Dioxide 36 mmol/L (21-32); Chloride 93 mmol/L (98-107); Creatinine Clr Calc Pharmacy 265.8 ml/min; Glucose 95 mg/dl (70-99(Fasting)); Magnesium 1.7 mg/dl (1.7-2.4); Phosphorus 3.3 mg/dl (2.5-4.9); Potassium 3.4 mmol/L (3.5-5.1); Sodium 133 mmol/L (136-145)
[2024-01-02 08:03] LABS: Albumin Globulin Ratio 1.5 (0.9-2); Albumin Level 2.9 gm/dl (3.4-5.0); BUN Creatinine Ratio 43.5 (10-20); Bilirubin,Total 0.9 mg/dl (0.2-1.0); Calcium 8.3 mg/dl (8.6-10.3); Creatinine Clr Calc Pharmacy 231.1 ml/min; Globulin 1.9 gm/dl (2.5-4.0); Potassium 3.7 mmol/L (3.5-5.1); Total Protein 4.8 gm/dl (6.0-8.3)
--- NOTE | 2024-01-02 08:21 | Pulmonology Progress Note ---
Date of Service January 02, 2024 Assessment & Plan (1) Acute on chronic respiratory failure with hypercapnia: (2) Finger infection: (3) Atrial fibrillation: (4) Duodenal stricture: (5) Anasarca: (6) Urinary tract infection: Hematuria presence: without hematuria Urinary tract infection type: site unspecified Qualified Code(s): N39.0 - Urinary tract infection, site not specified (7) Acute constipation: (8) Generalized weakness: (9) Pulmonary fibrosis: (10) Cachexia: Plan Impression: 68-year-old female with interstitial lung disease, HTN, and admitted 2 days ago with constipation, UTI, and abscess of left finger with planned undergo I&D with Ortho tomorrow. Patient also with volume overload/anasarca and has developed worsening acute on chronic hypercapnic respiratory failure now moved to ICU for further management and currently requiring continuous BiPAP Plan - -- Hypoxemic and hypercarbic respiratory failure: Continue nocturnal BiPAP. The patient has a history of sleep disordered breathing previously but discontinued it when she lost weight. Recommend outpatient repeat polysomnography once the patient is clinically stable. Continue to avoid any respiratory suppressant medications including narcotics or benzodiazepines. Patient may require oxygen at discharge. Unclear if she would qualify for BiPAP without polysomnography. Seems to be tolerating the BiPAP well at this point. -- Recommend getting the patient out of bed to chair is much as possible and ambulate. She has been out of bed to chair along. Increase activity as tolerated. Would benefit from PT/OT -- Interstitial lung disease: Followed at [place] and here. Secondary to systemic sclerosis. Continue mycophenolate. PFTs have been relatively stable. -- Pulmonary hypertension: Likely multifactorial including diastolic dysfunction (E to E prime ratio 11.6) and hypoxemic and hypercarbic respiratory failure as well as systemic sclerosis. Valvular heart disease also potentially contributing. Would continue with diuretics. No indication for pulmonary vasodilators or additional studies currently until the patient is euvolemic. Repeat echocardiogram in 3 to 4 months. Thank you for allowing us to precipitate in the care of this pleasant patient. Admission and Anticipated Discharge Date Admission Date: December 28, 2023 Supervising Physician Co-Signing Physician Notes I saw and evaluated the patient with Edi Tamez PA-C, and agree with findings and plan as documented in the note. CT chest 12/30/2023 personally reviewed: Interlobular thickening appreciated bilaterally especially on the right side Bilateral pleural effusion Elevated left hemidiaphragm Patient seen and examined at bedside. No acute distress, notable symptoms overnight She was saturating 97% on 1 L nasal cannula Overall she says that she is feeling the same. Still complaining of shortness of breath on minimal exertion Denied any headache, no nausea, no vomiting Has been afebrile Constitutional: No acute distress HEENT: EOMI, PERRLA Respiratory system: Decreased air entry bilaterally, no wheeze, no blood, positive Velcro-like crackles appreciated bilaterally CVS: S1-S2 positive, accentuated P2 Abdomen: Soft, nontender, nondistended, positive bowel sounds x4 Extremities: +2 pulses bilaterally radialis/ dorsalis pedis, no cyanosis, +1 pitting edema bilateral lower extremity, sclerodactyly appreciated bilaterally Neuro: Awake alert oriented x3 Psych: Normal mood and affect G/U: Positive Crocker Plan: In/out: -5.4 L since coming to the hospital Continue with diuresis keep the patient negative balance Continue with BiPAP/CPAP nightly and as needed shortness of breath O2 supplementation to keep oxygen saturation 90-92% given the pulmonary hypertension Please note the above document was generated using voice recognition software. It may contain grammatical, syntax or spelling errors.Any formal questions or concerns about the content, text or information contained within the body of this dictation should be directly addressed to the provider for clarification. Subjective Patient seen and evaluated at bedside. She reports having worn her BiPAP overnight without issue. She feels better today than yesterday. She still feels weak, but overall improving. She is tolerating her diet well. Review of Systems 2 Review of Systems: Unchanged. Physical Exam 2 Physical Exam: VITAL SIGNS Vital signs and nursing notes were reviewed. GENERAL 68-year-old female appearing her stated age who is in no acute distress. Communicates well with provider and answers questions appropriately. SKIN Without rashes or lesions. NOSE Midline and without cyanosis. MOUTH/OROPHARYNX Without perioral cyanosis. NECK Neck with FROM. LUNGS Chest wall evaluation demonstrates normal chest wall A:P diameter. Auscultation reveals decreased inspiratory effort with diffuse crackles. CARDIAC RRR with S1/S2. No murmur, rubs, or gallops appreciated. ABDOMEN Abdominal inspection demonstrates flat. BS normoactive all four quadrants. No tenderness, palpable masses, or ascites noted. PSYCH A&Ox3 and cooperates fully with examiner. Pt is very pleasant and interacts well with examiner. Results & Data Results & Data Vital Signs (Past 12 Hours) Vital Signs Temp Pulse Pulse Pulse Resp BP Pulse Ox 01/02/24 07:40 81 01/02/24 07:34 37 C 78 81 17 103/62 100 01/02/24 07:25 75 14 98 01/02/24 03:40 78 26 H 95 01/02/24 02:36 36.5 C 78 18 108/61 96 01/01/24 23:00 89 01/01/24 22:35 36.6 C 89 18 105/64 95 01/01/24 21:40 86 31 H 96 01/01/24 21:40 O2 Del Method O2 Flow Rate FiO2 01/02/24 07:40 01/02/24 07:34 Nasal Cannula 2 01/02/24 07:25 Nasal Cannula 3 01/02/24 03:40 28 01/02/24 02:36 BiPAP 01/01/24 23:00 01/01/24 22:35 BiPAP 01/01/24 21:40 28 01/01/24 21:40 Nasal Cannula, BiPAP Laboratory Results 01/02/24 04:24 01/02/24 07:31 PG Care Time/CCT Total # of Minutes Spent Total Time Spent with Patient: Total time spent is greater than 50% in coordination of care (as documented) at patient's floor/unit and/or counseling patient: Coding Level of Care Code 96104 SUB INP/OBS CARE 2/35MIN Diagnoses Acute on chronic respiratory failure with hypercapnia J96.22 Finger infection L08.9 Atrial fibrillation I48.91 Duodenal stricture K31.5 Anasarca R60.1 Urinary tract infection N39.0 Hematuria presence: without hematuria Urinary tract infection type: site unspecified Acute constipation K59.00 Generalized weakness R53.1 Pulmonary fibrosis J84.10 Cachexia R64
[2024-01-02 10:44] VITALS: O2SAT 95
--- NOTE | 2024-01-02 11:28 | Discharge Summary ---
Date of Service January 02, 2024 Admission HPI Per Admitting Provider Pt is a 68 yo female with PMH of scleroderma (with associated pulmonary fibrosis), afib, and HTN presenting d/t constipation. Pt notes she has not had a BM since Tuesday when she actually had diarrhea. Since then, she has had some abdominal discomfort, nausea, and vomiting. She has been taking dulcolax at home to help facilitate a BM but this has not worked. She was sitting on the toilet straining to have a BM for 30 minutes earlier today and she noted to have leg weakness d/t this. She is getting home PT/OT 4 days per week. Pt denies chest pain or SOB. In the ER, pt was given rocephin x1 d/t concern for urine infection. Admission Exam Per Admitting Provider Constitutional: NAD, vitals WNL. Eyes: Conjunctivae normal. Respiratory: CTA bilaterally. Non labored breathing. No rhonchi, wheezing, or crackles. Cardiovascular: Irregular rhythm, regular rate, No murmurs noted. Bilateral 1+ pitting LE edema. Gastrointestinal (Abdomen): Diffusely tender throughout, hypoactive BS. No guarding. No masses noted. Skin: No rashes or skin lesions noted. Neurologic: Sensation grossly intact. No FND appreciated. Psychiatric: Speech of normal pace and content. Mood and affect congruent. Principal Diagnosis volume overload, malnurishment Discharge Exam Constitutional: ill-appearing, no acute distress HEENT: NCAT, no conjunctival injection CV: irregularly irregular rate/rhythm, afib on monitor, anasarca in arms/legs, up to mid abdomen, improved from prior Resp: no increased work of breathing GI: TTP left side predominance MSK: felon of L 3rd finger, s/p I&D Skin: warm, dry, no rash appreciated Neuro: somnolent Discharge Data Allergies Allergy/AdvReac Type Severity Reaction Status Date / Time simvastatin [From Zocor] Allergy Intermediate "made me Verified 12/16/23 14:44 pass out" ibuprofen Allergy Mild stomach Verified 12/16/23 14:44 pain naproxen [From Aleve] Allergy Mild STOMACH Verified 12/16/23 14:44 PAIN oxycodone [From Percocet] Allergy Mild stomach Verified 12/16/23 14:44 pain lactose AdvReac Verified 12/31/23 14:04 oyster extract AdvReac Gastrointestinal Verified 12/16/23 14:44 Upset scallops AdvReac Gastrointestinal Verified 12/16/23 14:44 Upset Consultations 12/28/23 01:34 ED Decision to Admit Stat 12/28/23 02:00 Consult General Surgery Routine 12/29/23 11:12 Consult Nephrology Routine 12/30/23 13:51 Consult Orthopedic Surgery Routine 12/30/23 17:55 Consult Ballistic Technician Stat Pulmonary Recommendations -- Hypoxemic and hypercarbic respiratory failure: Continue nocturnal BiPAP. The patient has a history of sleep disordered breathing previously but discontinued it when she lost weight. Recommend outpatient repeat polysomnography once the patient is clinically stable. Continue to avoid any respiratory suppressant medications including narcotics or benzodiazepines. Patient may require oxygen at discharge. Unclear if she would qualify for BiPAP without polysomnography. Seems to be tolerating the BiPAP well at this point. -- Recommend getting the patient out of bed to chair is much as possible and ambulate. She has been out of bed to chair along. Increase activity as tolerated. Would benefit from PT/OT -- Interstitial lung disease: Followed at [facility] and here. Secondary to systemic sclerosis. Continue mycophenolate. PFTs have been relatively stable. -- Pulmonary hypertension: Likely multifactorial including diastolic dysfunction (E to E prime ratio 11.6) and hypoxemic and hypercarbic respiratory failure as well as systemic sclerosis. Valvular heart disease also potentially contributing. Would continue with diuretics. No indication for pulmonary vasodilators or additional studies currently until the patient is euvolemic. Repeat echocardiogram in 3 to 4 months. Procedures Performed Operation Date: 12/31/23 07:30 Actual Procedures p Incision and Drainage Left Middle Finger(Left) - Kulwinder Nieves, Ordered Studies 12/27/23 23:43 CT abd pelvis IV con only Stat 12/30/23 13:58 CT chest diagnostic wo con Urgent CT head/brain wo con Urgent 12/30/23 14:03 CT Abdomen and Pelvis [CT abd pelvis wo con] Urgent Hospital Course (1) Constipation: (2) Hyponatremia: (3) Pulmonary fibrosis: (4) Scleroderma: (5) Urinary tract infection: (6) Anasarca: (7) Felon of finger of left hand: (8) Acute respiratory failure with hypercapnia: Plan Pt is a 68 yo female with PMH of scleroderma (with associated pulmonary fibrosis), afib, and HTN presenting d/t constipation. Acute Respiratory Failure 2/[address] imaging demonstrates acute worsening of pulmonary edema with pleural effusion CO2 on chemistry remains elevated Bipap HS Continue diuresis with 40mg Lasix PO daily Constipation vs. SBO Clinical picture more consistent with constipation with large stool burden, has passed stool since manual disimpaction, enema by surgery KUB showed large, dilated loops of bowel; CTAP showing transition point in duodenum with concern for stricture vs. stenosis Subsequent KUB without evidence of obstruction but with remaining stool burden pt with significant past surgical hx of gastric bypass and multiple surgical interventions for bowel blockages Gen surg recommending no further intervention, may start oral bowel regimen now that patient is passing stool Given increased abdominal pain 12/30/23 repeat CTAP performed Progression of volume overload, increase in b/l pleural effusion, increase in pulmonary edema, increase in anasarca, and increase in abdominal and pelvic ascites Management as above Anasarca Nephrology consultation appreciated: likely manifestation of hypoalbuminemia 2/2 poor nutritional status IV albumin with goal of >4: will hold off on further IV supplementation as diet is advanced, continue to monitor daily continue home spironolactone and lasix - will increase Lasix to 40mg daily follow urine output, BMP, serum albumin elevated BUN/Cr 2/2 low muscle mass in setting and poor protein absorption adding acetazolamide for metabolic alkalosis Hyponatremia Resolved suspect secondary to hypovolemia and malnourishment urine Na, osmolality and serum osmolality ordered Appears Hypotonic, hypervolemic hyponatremia trend labs Transaminitis known fatty liver re-demonstrated on CT mild ascites present on CT chronically elevated INR UTI Resolved pt notes increased urinary frequency over the last few days prior to hospitalization Now on daptomycin, change made by ICU Afib continue home Xarelto, metoprolol Felon to OR 12/31/23 - drained and sutured with Tara drain in place culture growing staph aureus, follow sensitivities pre-op xr demonstrates calcifications consistent with scleroderma Continue cephalexin 500mg Q6h x4 days after discharge HTN continue home spironolactone Scleroderma with associated pulmonary fibrosis pt follows with rheum as an outpatient continue home inhalers/medications nephrology recommends [facility] consultation. Reassess for SIBO. Diet: Full liquid, advance as tolerated Code: full VTE ppx: home xarelto Dispo: PCU Total Time Total Time Spent Total Time Spent (In Minutes): <30 Discharge Plan Discharge Items Patient Disposition: Transfer Inpatient Rehab Fac Reason For Visit: CONCERN FOR SBO Discharge Diagnosis: Volume overload Activity: As commented below Activity Comment: As instructed by rehab staff Non-emergency contact: Primary Care Provider and Barrel Loader Call non-emergency contact if: you have any medication questions and your symptoms worsen Follow-up/Referrals: Marcia Clemente MD [Primary Care Provider] - Diet: Regular Addtl Attending Provider Instructions: You were admitted to the hospital for constipation. You were treated with bowel rest and laxatives. While you were here you became fluid overloaded and had difficulty breathing. We treated you with bipap - a device to help push fluid out of your lungs and diuretics to help decrease the amount of fluid in your system. A discharge summary will be sent to your primary care physician to ensure continuity of care. Please bring this discharge summary with you to your next office appointment so that your provider can review it at that time. Follow-up appointments: Make a follow-up appointment with your PCP within the next week. It is very important that you follow up with them shortly after discharge from the hospital. Keep all your follow-up appointments as already scheduled. If you cannot make an appointment, notify your provider. Take your medications as instructed; do not skip a dose of your medicines. Make sure all of your doctors know every medicine you are taking (including vpls-qfi-[id number] medicines, vitamins, and supplements). Call your primary care provider before taking any new medicines (including dlhi-iyr-vinegnv medicines, vitamins, and supplements), because some of these may interact with your current medications, or may make your symptoms worse. Tell your primary care provider if you cannot afford your medications. CONTACT YOUR PRIMARY CARE PROVIDER if you experience any of the following: More short of breath Increased swelling in your extremities Difficulty following your treatment plan, or difficulty taking medications CALL 911 OR GO TO THE EMERGENCY DEPARTMENT if you experience any of the following: Sudden, severe abdominal pain or nausea/vomiting Severe chest pain, or chest pain that radiates (moves) to your jaw or arm Sudden, severe shortness of breath or difficulty breathing Thank you for allowing us to participate in your care. Addtl Forensic Computer Examiner Provider Instructions: ORTHOPEDIC INSTRUCTIONS Activity Recommendations: Limit activity with left hand. Medications: Continue taking Keflex 500 mg 4 times a day as antibiotic treatment as prescribed. Dressing Care: Just keep a Band-Aid over the incision. Follow-Up Visit: Follow-up with [facility] orthopedics in 2 weeks. We will remove your sutures at that time Please call the office to set up an appointment for a time that works for you. Pending Studies at Discharge: No Stand-Alone Forms: My [facility] Skilled Items Patient informed of condition?: Yes DNR: No Discharge Level of Care: Acute rehab Communicable Disease: No Discharge Prognosis: Stable Lines: None Urinary Catheter: No Medications and DC Order Prescriptions: New furosemide 40 mg Tablet 40 mg PO QAM Qty: 30 0RF cephalexin 500 mg Capsule 500 mg PO QID 4 Days Qty: 16 0RF Continued cholecalciferol (vitamin D3) [Vitamin D3] 25 mcg (1,000 unit) capsule 10,000 unit PO QAM Rx Instructions: 10,000 albuterol sulfate 1.25 mg/3 mL solution for nebulization 2.5 mg inhalation QID lactase 3,000 unit tablet 3,000 units PO QID PRN (Reason: Abdominal Discomfort) multivitamin Tablet 1 tab PO QAM tramadol-acetaminophen 37.5-325 mg tablet 1 tab PO QID PRN (Reason: pain) Qty: 30 0RF spironolactone 25 mg tablet 25 mg PO QAM fluticasone propion-salmeterol [Advair Diskus] 250-50 mcg/dose blister with device 1 inh INHALATION BID Qty: 180 3RF Xarelto 20 mg Tablet 20 mg PO QPM hydroxychloroquine 200 mg tablet 400 mg PO QPM metoprolol succinate 100 mg tablet extended release 24 hr 100 mg PO QPM omeprazole 40 mg capsule,delayed release(DR/EC) 40 mg PO QAM calcium carbonate 500 mg calcium (1,250 mg) tablet 500 mg PO QAM Saccharomyces boulardii [Digest Probiotic (S.boulardii)] 250 mg capsule 250 mg PO QAM Rx Instructions: swallow whole Zyrtec 10 mg capsule 10 mg PO QAM Ocuvite Eye Plus Multi 200-15-150 mcg tablet 1 tab PO QPM Rx Instructions: administer with a meal and a large glass of water Beano 450 unit Tablet,Disintegrating 450 unit PO BIDWMEAL PRN (Reason: .abd bloating) Creon 6,000-19,000 -30,000 unit capsule,delayed release(DR/EC) 1 cap PO TID Rx Instructions: do not exceed 10,000 unit/kg lipase per 24 hrs mycophenolate mofetil 500 mg tablet 500 mg PO BID prednisolone acetate 1 % drops,suspension 1 drp OPB UD Rx Instructions: 1 drop both eyes qam, 1 drop left in pm cyanocobalamin (vitamin B-12) 500 mcg Tablet 500 mcg PO DAILY simethicone 80 mg Tablet,Chewable 80 mg PO DIRECTED PRN (Reason: .gas/bloating) ondansetron HCl 4 mg Tablet 4 mg PO Q6H PRN (Reason: Nausea And Vomiting) magnesium oxide 400 mg magnesium tablet 400 mg PO DAILY triamcinolone acetonide [Nasacort] 55 mcg aerosol,spray 2 sprays INTNAS QAM Rx Instructions: administer into each nostril ferrous sulfate [Iron (ferrous sulfate)] 325 mg (65 mg iron) Tablet 325 mg PO QAM [id number]-[id number]-ast [krill oil] 1,910-902-33-80 mg Capsule 1 cap PO DAILY albuterol sulfate 90 mcg/actuation Hfa Aerosol Inhaler 1 puff INHALATION Q6 PRN (Reason: Shortness Of Breath) Discontinued furosemide 20 mg tablet 20 mg PO QAM Discharge Orders: Discharge Order (Routine); Ordered 01/02/24 Ordered By: Jeffery Carranza Admission Data Admit Date/Time: 12/28/23 01:53 Attending Provider: Corbin Doherty Admit Provider: Isela Dunbar Primary Care Provider: Marcia Clemente [facility]; Carla Gaona; Chester Ornelas; Alek Green; Kulwinder Nieves; Roger Miller Other Interventions: Discharge Summary Assessment (RN) Last Done: 01/02/24 16:24 Supervising Physician Co-Signing Physician Notes I personally examined the patient and verified all rizzo points of history and exam, discussed case, and agree with decision making with Dr Carranza for rehab today. no acute complaints vitals noted nad heent nc at mmm breathing unlabored no accessory muscles good effort skin no rashes no pallor or icterus respiratory failure HFpEF - doing better, for rehab today, otherwise as above Resident Activity Tracking Resident Involvement: Resident Care Provided Care Provided: Adult Hospital Medicine
[2024-01-02 12:08] VITALS: RESP 18; TEMP 98.1
--- NOTE | 2024-01-02 15:38 | Orthopedic Progress Note ---
Date of Service January 02, 2024 Assessment & Plan (1) Jermaine of finger of left hand: The cultures have grown out Staph aureus. She is currently on Keflex 4 times a day. She is orthopedically stable for [facility]. She will follow-up with orthopedics in 2 weeks for suture removal. Full orthopedic discharge instructions were placed in the discharge summary. Kristel Martinez was seen and examined at bedside this morning. Overall she is doing okay. She is not having too much pain in the finger. She has no new complaints.. Review of Systems All systems reviewed & are unremarkable except as noted in HPI & below. Physical Exam On physical exam of the left finger, the dressing was being changed and drain was pulled. There is a very small amount of purulent discharge from when the drain was pulled. Overall the finger looks better.. Results & Data Results & Data Laboratory Results . Diagnostic Findings . PG Care Time/CCT Total # of Minutes Spent Total Time Spent with Patient: Total time spent is greater than 50% in coordination of care (as documented) at patient's floor/unit and/or counseling patient: Coding Level of Care Code 04859 Post Operative Follow-Up Diagnoses Jermaine of finger of left hand L03.012
[2024-01-02 16:27] VITALS: BP 109/70; PULSE 78
--- NOTE | 2024-01-02 19:00 | Billing Data ---
Date of Service January 02, 2024 Coding Level of Care Code 17501 IN/OBS DISCH 30 MIN/LESS
[2024-01-02] MEDS ORDERED: cephALEXin 500 MG CAP PO SCH (21:00)
== END 2024-01-02 17:53 | DRG 391 ==
LOC: ED 22:15 → SUATTDRO 12-28 01:53 → 3W 12-28 01:53 → 2N 12-28 15:28 → 1E 12-30 17:29 → 4W 12-31 09:53
DX: E46 Unspecified protein-calorie malnutrition; K56.609 Unspecified intestinal obstruction, unspecified as to partial versus complete obstruction; R18.8 Other ascites; I27.20 Pulmonary hypertension, unspecified; K59.00 Constipation, unspecified; J90 Pleural effusion, not elsewhere classified; L03.012 Cellulitis of left finger; M34.9 Systemic sclerosis, unspecified; N39.0 Urinary tract infection, site not specified; E87.70 Fluid overload, unspecified; K21.9 Gastro-esophageal reflux disease without esophagitis; Z79.01 Long term (current) use of anticoagulants; K31.84 Gastroparesis; K90.9 Intestinal malabsorption, unspecified; R74.01 Elevation of levels of liver transaminase levels; I10 Essential (primary) hypertension; E87.1 Hypo-osmolality and hyponatremia; R64 Cachexia; E88.09 Other disorders of plasma-protein metabolism, not elsewhere classified; Z88.6 Allergy status to analgesic agent; K76.0 Fatty (change of) liver, not elsewhere classified; J96.91 Respiratory failure, unspecified with hypoxia; J45.909 Unspecified asthma, uncomplicated; Z98.84 Bariatric surgery status; J96.22 Acute and chronic respiratory failure with hypercapnia; I48.91 Unspecified atrial fibrillation; J84.10 Pulmonary fibrosis, unspecified

== ENCOUNTER 2024-01-25 22:05 | Inpatient (IN) ==
--- NOTE | 2024-01-25 22:48 | Emergency Department Note ---
Impression & Plan Acute UTI, Atrial fibrillation, Gastroenteritis, Abdominal pain ED Provider Note Provider: Konstantin Soliz MD CHIEF COMPLAINT: Abdominal pain and nausea and vomiting HISTORY OF PRESENT ILLNESS: Patient is a 68-year-old female history of atrial fibrillation, interstitial lung disease on 2 L of oxygen, GERD, scleroderma and history of SBO presenting here today via ambulance from [facility]. Patient hospitalized for volume overload and respiratory failure several weeks ago initially went to [facility] and then [facility]. Patient states for several days she has had diffuse abdominal pain with nausea and vomiting and some brown diarrhea times. Normally on 2 L of oxygen at facility and is on Lasix and Xarelto. States he has been able to take her medicines. History of bowel structure in the past and multiple abdominal surgeries. Upon arrival little bit of a nosebleed. No sick contacts reported or trauma or falls. No syncope. Also reports a bit of palpitations in her chest. Sister at bedside states the patient's not been ambulatory since hospitalization. PAST MEDICAL HISTORY: As noted above MEDICATIONS: Reviewed home medications include Xarelto SOCIAL HISTORY: Non-smoker PHYSICAL EXAM: GENERAL: alert and oriented in no acute distress on stretcher fatigued and. Head: normocephalic and atraumatic EYES: No injection, discharge or icterus. PERRL, EOMI. NECK: Trachea midline. Supple. ENT: Mucous membranes pink and moist. LUNGS: Airway patent. No retractions. Breath sounds clear HEART: Irregular irregular rate and rhythm. No chest wall tenderness ABDOMEN: Soft mild diffuse tenderness. Well-healed prior abdominal scars. No peritoneal signs. SKIN: Acyanotic, warm, dry, without rashes EXTREMITIES: Without swelling, tenderness or deformity again no significant swelling of the lower extremities NEUROLOGICAL: No focal deficits. No aphasia. No facial droop or slurred speech. EK bpm atrial fibrillation. No acute ST segment elevation or depression with QTc of 401. CONTINUOUS CARDIAC MONITORING: was ordered and showed a heart rate of 80s to 90s bpm in atrial fibrillation Patient's laboratory studies and imaging reviewed. Differential includes colitis, obstruction, diverticulitis, pancreatitis, perforation, GI bleed, infection, dehydration, metabolic abnormality, hypo/hyperglycemia, electrolyte disturbance, anemia, hypoxia, cardiac sources, intracerebral event, toxicologic, neurologic, as well as other pathologies. IMPRESSION/MEDICAL DECISION MAKING: Upon arrival transient nosebleed has been on nasal cannula oxygen. Quickly stopped without medications. Minified oxygen applied and bleeding stopped. Is on Xarelto. Patient with some diffuse abdominal pain and history of abdominal surgery and SBO. Afebrile here. Will obtain CT scan of the abdomen pelvis for further evaluation of her complaints. Anticoagulated and doubt PE will hold off on additional chest imaging. Reports a little bit of palpitations but with anticoagulation doubt PE. Is in A-fib and has a history. Does not seem to be particularly fast rate at this point. Not hypoxic on her home oxygen. Generalized weakness and unable to ambulate since prior hospitalization. Will give a small 250 cc fluid bolus as she has had some decreased intake and these GI losses. Some difficulty with obtaining blood work initially. Patient stable hemoglobin 8.4. Slightly worse at 11.2 but not far off previous. Very mild hyponatremia of 131 but a hypokalemia of 2.6. Renal function stable. Lactate not elevated. Stool studies pending sample were ordered. Procalcitonin significantly elevated at 12.7. Will empirically cover given this with Zosyn. Prior microbiology reviewed without evidence of MRSA and pansensitive Proteus in urine previously. No severe transaminitis noted. Normal CK. No significant troponin elevation. Normal lipase. Negative respiratory viral panel. INR elevated 3.8. Not on Coumadin. Mild elevations of INR before but not quite this high. Question if there may be some liver synthesis dysfunction question magnesium 1.5. Urinalysis returns from straight cath nitrate positive trace leuk esterase with 4+ bacteria. Not a lot of white blood cells however but could be nidus of infection. Again receiving broad- spectrum antibiotics. Potassium supplementation ordered via IV. 1 view chest x-ray per my interpretation here without evidence of pneumothorax with a large gastric bubble and distention notable without obvious infiltrate. CT the abdomen pelvis per radiology report shows evidence of free fluid but no free air. No obvious active extravasation. Likely just generalized fluid overload with the pleural effusions visualized. Again received 250 cc of IV fluid but no further here. Hospitalist will evaluate for further care here in the hospital. DIAGNOSIS: Abdominal pain, nausea vomiting diarrhea, weakness, hypokalemia, acute UTI DISPOSITION: Hospitalist will evaluate Patient was agreeable with this plan. Past Med/Surg History Problem List (Updated 01/26/24 @ 05:37 by Emiliano Maher MD) Hypoalbuminemia due to protein-calorie malnutrition Acute on chronic respiratory failure with hypoxia Ascites Pleural effusion Elevated INR Poor intravenous access Electrolyte disturbance Abdominal pain (Acute) Gastroenteritis (Acute) Acute UTI (Acute) Cachexia Felon of finger of left hand Finger infection Anasarca Duodenal stricture Atrial fibrillation (Acute) on xarelto follows with Dr. Bustamante > no pacer Bilateral leg weakness (Acute) Generalized weakness (Chronic) Anemia (Acute) Pressure ulcer, buttock (Acute) Surgical wound, non healing (Acute) Hypokalemia (Acute) Hypomagnesemia Acute respiratory failure with hypoxia Lumbar degenerative disc disease Stage III pressure ulcer (Acute) Gastroparesis Dysphagia Vocal cord nodules Anticoagulant long-term use History of atrial fibrillation (Acute) Pulmonary fibrosis (Acute) Atrial flutter (Acute) Allergic rhinitis caused by mold (Chronic) Allergic rhinitis due to dust mite (Chronic) Allergic rhinitis due to animal hair and dander (Chronic) Allergic rhinitis due to pollen (Chronic) GERD (gastroesophageal reflux disease) Raynaud's syndrome Asthma (Chronic) rare res inh use Pulmonary fibrosis (Chronic) Medical History Acute on chronic respiratory failure with hypercapnia Acute respiratory failure with hypercapnia Acute hyponatremia Urinary tract infection Acute constipation Hyponatremia Constipation Macrocytic anemia Weakness Pallor Induration of periwound skin Pain of right scapula Hypokalemia Hypoxia Bronchitis due to human metapneumovirus (hMPV) Dyspnea on minimal exertion MONTES (dyspnea on exertion) Hypoxia Acute respiratory distress Acute bronchitis Regurgitation of food Encounter for pre-operative examination Acute upper respiratory infection Hypomagnesemia MONTES (dyspnea on exertion) Nausea Decreased appetite Hypomagnesemia Decubitus skin ulcer Hypertension Scleroderma History of COVID-19 fall 2021 Poor intravenous access "took 2 hours to get IV in for last procedure, finally needed the U.S machine to get in place, had to be put in by anesthesia" Environmental and seasonal allergies History of cardioversion x several Chronic back pain Chronic diarrhea Gastroparesis On anticoagulant therapy xarelto daily Surgical History No significant past surgical history S/P debridement (01/28/23) Abdominal Wall Wound Debridement, Skin, Subcutaneous, Fascia 15x8 - Rasheed Ward MD, FACS > pt still has at present, follows with wound clinic History of benign breast biopsy History of dilatation and curettage History of total right knee replacement (TKR) History of colonoscopy History of esophagogastroduodenoscopy (EGD) Status post fine needle biopsy on thyroid--all benign History of tooth extraction full upper History of bilateral cataract extraction History of cardiac radiofrequency ablation (~10/2020) 2020 @ [facility] [place] History of hand surgery finger surgery > right History of hernia repair History of cholecystectomy History of surgery Mutiple GI procedures for blocked bowel. History of gastric bypass [id number] Family History Father Hearing loss Brother Hearing loss Other Cancer Heart disease Hypertension No family history of adverse response to anesthesia No family history of bleeding disorder Stroke Social History Smoking Status: Never smoker Second Hand Exposure: No; Do You Dip or Chew Tobacco: No; Hx Alcohol Use: No Hx Substance Use: No Preferred Language: Belarusian Communication Ability: Effective Scouring Pads Supervisor Required: No Beliefs That Will Affect Care: None marital status: Single Current Living Situation: Personal Care Facility Current Living Situation Comment: Pt was recently [facility]arged from [facility] to [facility] and then to [facility] current occupational status: retired Other Information That Helps Us Care for You: No Feels Safe at Home: Yes Safety Concerns: Feels Safe At This Time Diet: other Diet Comment: gastroparesis caffeine: Yes Assistive Devices: Walker Allergies Allergies Allergy/AdvReac Type Severity Reaction Status Date / Time simvastatin [From Zocor] Allergy Intermediate "made me Verified 01/26/24 01:31 pass out" ibuprofen Allergy Mild stomach Verified 01/26/24 01:31 pain naproxen [From Aleve] Allergy Mild STOMACH Verified 01/26/24 01:31 PAIN oxycodone [From Percocet] Allergy Mild stomach Verified 01/26/24 01:31 pain clams AdvReac Gastrointestinal Verified 01/26/24 01:31 Upset lactose AdvReac Gastrointestinal Verified 01/26/24 01:31 Upset oyster extract AdvReac Gastrointestinal Verified 01/26/24 01:31 Upset scallops AdvReac Gastrointestinal Verified 01/26/24 01:31 Upset Home Meds Home Medications Medication Instructions Recorded Confirmed hydroxychloroquine 200 mg tablet 400 mg PO QPM 02/23/19 01/26/24 rivaroxaban 20 mg tablet (Xarelto) 20 mg PO QPM 02/23/19 01/26/24 metoprolol succinate 100 mg 100 mg PO QPM 04/25/20 01/26/24 tablet,extended release 24 hr Saccharomyces boulardii 250 mg 250 mg PO QAM 04/28/21 01/26/24 capsule (Digest Probiotic (S.boulardii)) calcium carbonate 500 mg PO QAM 04/28/21 01/26/24 [id number] 200 mcg-vit K 15 1 tab PO DAILY 04/28/21 01/26/24 mcg-lycope 150 kub-adpias-rdqt tablet (Ocuvite Eye Plus Multi) omeprazole 40 mg capsule,delayed 40 mg PO QAM 04/28/21 01/26/24 release spironolactone 25 mg tablet 25 mg PO QAM 03/29/22 01/26/24 cyanocobalamin (vitamin B-12) 500 500 mcg PO DAILY 05/28/22 01/26/24 mcg tablet [id number]-[id number] 1 cap PO TIDM 05/28/22 01/26/24 6,000-19,000-30,000 unit capsule,delayed rel (Creon) mycophenolate mofetil 500 mg tablet 500 mg PO Q12 05/28/22 01/26/24 prednisolone acetate 1 % eye 1 drp OPL QPM 05/28/22 01/26/24 drops,suspension simethicone 80 mg chewable tablet 80 mg PO QID PRN GAS OR FLATULENCE 05/28/22 01/26/24 cholecalciferol (vitamin D3) 25 10,000 unit PO QAM 11/29/22 01/26/24 mcg (1,000 unit) capsule (Vitamin D3) magnesium oxide 400 mg PO DAILY 06/16/23 01/26/24 albuterol sulfate 90 mcg/actuation 1 puff inhalation Q6 PRN Wheezing 12/28/23 01/26/24 aerosol inhaler ferrous sulfate 325 mg (65 mg 325 mg PO QAM 12/28/23 01/26/24 iron) tablet (Iron (ferrous sulfate)) acetaminophen 650 mg 1,300 mg PO Q8H 01/26/24 01/26/24 tablet,extended release (Arthritis Pain Relief (acetaminophen) ER) albuterol sulfate 2.5 mg/3 mL 2.5 mg inhalation Q6H 01/26/24 01/26/24 (0.083 %) solution for nebulization cetirizine 10 mg tablet 10 mg PO DAILY 01/26/24 01/26/24 docusate sodium 100 mg capsule 100 mg PO BID 01/26/24 01/26/24 (Dulcolax Stool Softener (docusate)) fluticasone propionate 115 1 puff inhalation BID 01/26/24 01/26/24 mcg-salmeterol 21 mcg/actuation HFA inhaler (Advair HFA) lactase 9,000 unit tablet (Lactase 9,000 unit PO QID PRN Lactose 01/26/24 01/26/24 Fast Acting) Intolerance multivitamin (Daily-Paty tablet) 1 tab PO DAILY 01/26/24 01/26/24 ondansetron 8 mg disintegrating 8 mg PO Q4 PRN N/V 01/26/24 01/26/24 tablet tramadol 50 mg tablet 50 mg PO Q6 01/26/24 01/26/24 triamcinolone acetonide 55 mcg 2 spray intranasal DAILY 01/26/24 01/26/24 nasal spray aerosol (Nasacort) zinc oxide 20 % topical ointment 1 applic topical BID 01/26/24 01/26/24 Previous Rx's Medication Instructions Recorded furosemide 40 mg tablet 40 mg PO QAM #30 tabs 01/02/24 Results & Data (ED) Vital Signs Vital Signs - 24 hr 01/25/24 21:59 01/25/24 22:11 01/25/24 22:12 Temperature 36.5 C Temperature Source Oral Pulse Rate 96 H Pulse Rate [Apical] Pulse Rate from SpO2 Sensor Respiratory Rate 21 Blood Pressure 115/67 115/67 Blood Pressure [Left Arm] Blood Pressure Mean 99 83 Blood Pressure Mean [Left Arm] Pulse Oximetry Oxygen Flow Rate Sepsis Recent Fever Within 48 Hours No Sepsis New/Unexplained Change in Mental Status No Sepsis Action Taken by Nursing No Action Required 01/25/24 22:12 01/25/24 22:24 01/25/24 22:30 Temperature Temperature Source Pulse Rate 95 H 107 H 94 H Pulse Rate [Apical] Pulse Rate from SpO2 Sensor Respiratory Rate 27 H 26 H Blood Pressure Blood Pressure [Left Arm] Blood Pressure Mean Blood Pressure Mean [Left Arm] Pulse Oximetry Oxygen Flow Rate Sepsis Recent Fever Within 48 Hours Sepsis New/Unexplained Change in Mental Status Sepsis Action Taken by Nursing 01/25/24 22:33 01/25/24 22:34 01/25/24 23:02 Temperature Temperature Source Pulse Rate 94 H Pulse Rate [Apical] Pulse Rate from SpO2 Sensor Respiratory Rate 27 H Blood Pressure 112/71 110/67 Blood Pressure [Left Arm] Blood Pressure Mean 92 88 Blood Pressure Mean [Left Arm] Pulse Oximetry Oxygen Flow Rate Sepsis Recent Fever Within 48 Hours Sepsis New/Unexplained Change in Mental Status Sepsis Action Taken by Nursing 01/25/24 23:02 01/25/24 23:02 01/25/24 23:03 Temperature Temperature Source Pulse Rate 84 Pulse Rate [Apical] Pulse Rate from SpO2 Sensor 86 Respiratory Rate 27 H Blood Pressure 110/67 110/67 Blood Pressure [Left Arm] Blood Pressure Mean 88 88 Blood Pressure Mean [Left Arm] Pulse Oximetry 94 Oxygen Flow Rate Sepsis Recent Fever Within 48 Hours Sepsis New/Unexplained Change in Mental Status Sepsis Action Taken by Nursing 01/25/24 23:15 01/25/24 23:27 01/25/24 23:30 Temperature Temperature Source Pulse Rate 91 H Pulse Rate [Apical] Pulse Rate from SpO2 Sensor Respiratory Rate 27 H Blood Pressure 118/70 127/73 Blood Pressure [Left Arm] Blood Pressure Mean 84 74 Blood Pressure Mean [Left Arm] Pulse Oximetry Oxygen Flow Rate Sepsis Recent Fever Within 48 Hours Sepsis New/Unexplained Change in Mental Status Sepsis Action Taken by Nursing 01/25/24 23:30 01/25/24 23:33 01/25/24 23:39 Temperature Temperature Source Pulse Rate 85 84 Pulse Rate [Apical] Pulse Rate from SpO2 Sensor 84 Respiratory Rate 19 25 H Blood Pressure 127/73 Blood Pressure [Left Arm] Blood Pressure Mean 74 Blood Pressure Mean [Left Arm] Pulse Oximetry 98 Oxygen Flow Rate Sepsis Recent Fever Within 48 Hours Sepsis New/Unexplained Change in Mental Status Sepsis Action Taken by Nursing 01/25/24 23:45 01/25/24 23:48 01/25/24 23:57 Temperature Temperature Source Pulse Rate 81 82 Pulse Rate [Apical] Pulse Rate from SpO2 Sensor 82 86 Respiratory Rate 26 H 20 Blood Pressure 106/61 Blood Pressure [Left Arm] Blood Pressure Mean 72 Blood Pressure Mean [Left Arm] Pulse Oximetry 97 97 Oxygen Flow Rate Sepsis Recent Fever Within 48 Hours Sepsis New/Unexplained Change in Mental Status Sepsis Action Taken by Nursing 01/26/24 00:27 01/26/24 00:30 01/26/24 00:42 Temperature Temperature Source Pulse Rate 97 H 78 82 Pulse Rate [Apical] Pulse Rate from SpO2 Sensor 95 H 80 80 Respiratory Rate 22 25 H 20 Blood Pressure Blood Pressure [Left Arm] Blood Pressure Mean Blood Pressure Mean [Left Arm] Pulse Oximetry 97 99 96 Oxygen Flow Rate Sepsis Recent Fever Within 48 Hours Sepsis New/Unexplained Change in Mental Status Sepsis Action Taken by Nursing 01/26/24 01:00 01/26/24 01:00 01/26/24 01:15 Temperature Temperature Source Pulse Rate 80 Pulse Rate [Apical] 77 Pulse Rate from SpO2 Sensor 82 Respiratory Rate 24 22 Blood Pressure 102/63 Blood Pressure [Left Arm] 122/85 Blood Pressure Mean 69 Blood Pressure Mean [Left Arm] 97 Pulse Oximetry 99 97 Oxygen Flow Rate 2 Sepsis Recent Fever Within 48 Hours Sepsis New/Unexplained Change in Mental Status Sepsis Action Taken by Nursing 01/26/24 01:15 01/26/24 01:16 01/26/24 01:16 Temperature Temperature Source Pulse Rate 76 Pulse Rate [Apical] Pulse Rate from SpO2 Sensor Respiratory Rate 21 Blood Pressure 111/46 L 111/46 L Blood Pressure [Left Arm] Blood Pressure Mean 63 63 Blood Pressure Mean [Left Arm] Pulse Oximetry Oxygen Flow Rate Sepsis Recent Fever Within 48 Hours Sepsis New/Unexplained Change in Mental Status Sepsis Action Taken by Nursing 01/26/24 01:18 01/26/24 01:18 01/26/24 01:18 Temperature Temperature Source Pulse Rate Pulse Rate [Apical] Pulse Rate from SpO2 Sensor Respiratory Rate Blood Pressure 122/85 122/85 122/85 Blood Pressure [Left Arm] Blood Pressure Mean 105 105 105 Blood Pressure Mean [Left Arm] Pulse Oximetry Oxygen Flow Rate Sepsis Recent Fever Within 48 Hours Sepsis New/Unexplained Change in Mental Status Sepsis Action Taken by Nursing 01/26/24 01:18 01/26/24 01:31 01/26/24 01:45 Temperature Temperature Source Pulse Rate 90 85 Pulse Rate [Apical] Pulse Rate from SpO2 Sensor 89 85 Respiratory Rate 24 19 Blood Pressure 112/51 L Blood Pressure [Left Arm] Blood Pressure Mean 86 Blood Pressure Mean [Left Arm] Pulse Oximetry 95 96 Oxygen Flow Rate Sepsis Recent Fever Within 48 Hours Sepsis New/Unexplained Change in Mental Status Sepsis Action Taken by Nursing 01/26/24 01:45 01/26/24 01:45 01/26/24 01:45 Temperature Temperature Source Pulse Rate Pulse Rate [Apical] Pulse Rate from SpO2 Sensor Respiratory Rate Blood Pressure 109/66 109/66 109/66 Blood Pressure [Left Arm] Blood Pressure Mean 85 85 85 Blood Pressure Mean [Left Arm] Pulse Oximetry Oxygen Flow Rate Sepsis Recent Fever Within 48 Hours Sepsis New/Unexplained Change in Mental Status Sepsis Action Taken by Nursing 01/26/24 02:00 01/26/24 02:00 01/26/24 02:00 Temperature Temperature Source Pulse Rate 86 Pulse Rate [Apical] Pulse Rate from SpO2 Sensor 89 Respiratory Rate 26 H Blood Pressure 131/96 131/96 Blood Pressure [Left Arm] Blood Pressure Mean 100 100 Blood Pressure Mean [Left Arm] Pulse Oximetry 99 Oxygen Flow Rate Sepsis Recent Fever Within 48 Hours Sepsis New/Unexplained Change in Mental Status Sepsis Action Taken by Nursing 01/26/24 02:11 01/26/24 02:14 01/26/24 02:15 Temperature Temperature Source Pulse Rate 76 76 Pulse Rate [Apical] Pulse Rate from SpO2 Sensor 73 Respiratory Rate 25 H Blood Pressure 140/60 Blood Pressure [Left Arm] Blood Pressure Mean 84 Blood Pressure Mean [Left Arm] Pulse Oximetry 97 Oxygen Flow Rate Sepsis Recent Fever Within 48 Hours Sepsis New/Unexplained Change in Mental Status Sepsis Action Taken by Nursing 01/26/24 02:31 01/26/24 02:38 Temperature Temperature Source Pulse Rate 85 Pulse Rate [Apical] Pulse Rate from SpO2 Sensor Respiratory Rate Blood Pressure 115/57 L Blood Pressure [Left Arm] Blood Pressure Mean 62 Blood Pressure Mean [Left Arm] Pulse Oximetry 99 Oxygen Flow Rate Sepsis Recent Fever Within 48 Hours Sepsis New/Unexplained Change in Mental Status Sepsis Action Taken by Nursing Laboratory Data 01/26/24 04:27 01/26/24 04:27 Lab Results 01/25/24 01/25/24 01/25/24 Range/Units 22:48 23:13 23:17 WBC 11.24 H (4.8-10.8) K/ul RBC 2.59 L (4.20-5.40) M/uL Hgb 8.4 L (12.0-16.0) g/dl POC Hgb 8.8 L (12.0-16.0) g/dl Hct 25.0 L (37.0-47.0) % POC Hct 26 L (37-47) % MCV 96.5 (80.0-100.0) fL MCH 32.4 (25.0-34.0) pg MCHC 33.6 (32.0-36.0) g/dL RDW Std Deviation 51.3 H (36.4-46.3) fL RDW Coeff of Lorenzo 14.9 H (11.5-14.5) % Plt Count 243 (130-400) K/uL MPV 10.4 (9.4-12.4) fL Immature Gran % (Auto) 0.5 % Neut % (Auto) 81.7 % Lymph % (Auto) 11.7 % [place] % (Auto) 6.0 % Eos % (Auto) 0.0 % Baso % (Auto) 0.1 % Neut # (Auto) 9.18 H (1.40-6.50) K/uL Lymph # (Auto) 1.31 (1.20-3.40) K/uL [place] # (Auto) 0.68 H (0.11-0.59) K/uL Eos # (Auto) 0.00 (0.00-0.50) K/uL Baso # (Auto) 0.01 (0.00-0.20) K/uL Immature Gran # (Auto) 0.06 (0.01-0.20) K/uL PT 36.6 H (9.0-12.0) Seconds INR 3.8 H (0.9-1.1) POC Sodium 131 L (135-144) mmol/L Sodium 136 (136-145) mmol/L POC Potassium 2.6 L (3.3-5.0) mmol/L Potassium 2.8 L (3.5-5.1) mmol/L POC Chloride 83 L (101-112) mmol/L Chloride 91 L (98-107) mmol/L Carbon Dioxide 37 H (21-32) mmol/L POC Total CO2 32 H (24-31) mmol/L Anion Gap 8 (3-11) POC Anion Gap 20.0 (16-25) mmol/L POC BUN 23 H (7-18) mg/dl BUN 26 H (6-23) mg/dl Creatinine 0.44 L (0.6-1.2) mg/dl POC Creatinine 0.7 (0.6-1.3) mg/dl Est Cr Clr Drug Dosing 117.3 ml/min eGFR 104.64 BUN/Creatinine Ratio 59.1 H (10-20) Glucose 105 H (70-99(Fasting)) mg/dl POC Glucose (other) 101 H (70-99) mg/dl Lactate 1.2 (0.4-2.0) mmol/L Calcium 7.5 L (8.6-10.3) mg/dl POC Ioniz Calcium Rafa 0.98 L (1.12-1.32) mmol/l Magnesium 1.5 L (1.7-2.4) mg/dl Total Bilirubin 1.1 H (0.2-1.0) mg/dl AST 33 (13-39) U/L ALT 42 (7-52) U/L Alkaline Phosphatase 153 H (34-104) U/L Total Creatine Kinase 42 (26-192) U/L Troponin I High Sens 19.8 H (0-14) pg/ml B-Natriuretic Peptide 274 H (0-100) pg/ml Total Protein 4.9 L (6.0-8.3) gm/dl Albumin 2.6 L (3.4-5.0) gm/dl Globulin 2.3 L (2.5-4.0) gm/dl Albumin/Globulin Ratio 1.1 (0.9-2) Lipase 3 L (11-82) U/L Procalcitonin 12.70 H (0-0.5) ng/ml TSH 5.388 H (0.300-4.500) uIu/ml Free T4 0.63 (0.61-1.60) ng/dl Urine Color Urine Appearance (Clear) Urine pH (4.5-7.5) Ur Specific [place] (1.000-1.030) Urine Protein (Negative) Urine Glucose (UA) (Negative) Urine Ketones (Negative) Urine Blood (Negative) Urine Nitrite (Negative) Urine Bilirubin (Negative) Urine Urobilinogen (Negative) Ur Leukocyte Esterase (Negative) Urine WBC (Auto) (0-5) /hpf Urine RBC (Auto) (0-2) /hpf U Hyaline Cast (Auto) (0-2) /lpf U Epithel Cells (Auto) (0-2) /hpf Urine Bacteria (Auto) (None Seen) Nasal Screen MRSA (PCR) (Negative) Adenovirus (PCR) Not Detected (NotDetected) B. pertussis DNA (PCR) Not Detected (NotDetected) B.parapertussis DNA PCR Not Detected (NotDetected) C. pneumoniae DNA (PCR) Not Detected (NotDetected) Coronavirus OC43 (PCR) Not Detected (NotDetected) Coronavirus HKU1 (PCR) Not Detected (NotDetected) Coronavirus 229E (PCR) Not Detected (NotDetected) SARS-CoV-2 (PCR) Not Detected (NotDetected) Coronavirus NL63 (PCR) Not Detected (NotDetected) Human Metapneumovir PCR Not Detected (NotDetected) Influenza Type A (PCR) Not Detected (NotDetected) Influenza Type B (PCR) Not Detected (NotDetected) M. pneumoniae (PCR) Not Detected (NotDetected) Parainfluenza 1 (PCR) Not Detected (NotDetected) Parainfluenza 2 (PCR) Not Detected (NotDetected) Parainfluenza 3 (PCR) Not Detected (NotDetected) Parainfluenza 4 (PCR) Not Detected (NotDetected) RSV (PCR) Not Detected (NotDetected) Entero/Rhino (PCR) Not Detected (NotDetected) Blood Type A Positive Antibody Screen NEGATIVE 01/25/24 01/26/24 Range/Units 23:39 02:41 WBC (4.8-10.8) K/ul RBC (4.20-5.40) M/uL Hgb (12.0-16.0) g/dl POC Hgb (12.0-16.0) g/dl Hct (37.0-47.0) % POC Hct (37-47) % MCV (80.0-100.0) fL MCH (25.0-34.0) pg MCHC (32.0-36.0) g/dL RDW Std Deviation (36.4-46.3) fL RDW Coeff of Lorenzo (11.5-14.5) % Plt Count (130-400) K/uL MPV (9.4-12.4) fL Immature Gran % (Auto) % Neut % (Auto) % Lymph % (Auto) % [place] % (Auto) % Eos % (Auto) % Baso % (Auto) % Neut # (Auto) (1.40-6.50) K/uL Lymph # (Auto) (1.20-3.40) K/uL [place] # (Auto) (0.11-0.59) K/uL Eos # (Auto) (0.00-0.50) K/uL Baso # (Auto) (0.00-0.20) K/uL Immature Gran # (Auto) (0.01-0.20) K/uL PT (9.0-12.0) Seconds INR (0.9-1.1) POC Sodium (135-144) mmol/L Sodium (136-145) mmol/L POC Potassium (3.3-5.0) mmol/L Potassium (3.5-5.1) mmol/L POC Chloride (101-112) mmol/L Chloride (98-107) mmol/L Carbon Dioxide (21-32) mmol/L POC Total CO2 (24-31) mmol/L Anion Gap (3-11) POC Anion Gap (16-25) mmol/L POC BUN (7-18) mg/dl BUN (6-23) mg/dl Creatinine (0.6-1.2) mg/dl POC Creatinine (0.6-1.3) mg/dl Est Cr Clr Drug Dosing ml/min eGFR BUN/Creatinine Ratio (10-20) Glucose (70-99(Fasting)) mg/dl POC Glucose (other) (70-99) mg/dl Lactate (0.4-2.0) mmol/L Calcium (8.6-10.3) mg/dl POC Ioniz Calcium Rafa (1.12-1.32) mmol/l Magnesium (1.7-2.4) mg/dl Total Bilirubin (0.2-1.0) mg/dl AST (13-39) U/L ALT (7-52) U/L Alkaline Phosphatase (34-104) U/L Total Creatine Kinase (26-192) U/L Troponin I High Sens (0-14) pg/ml B-Natriuretic Peptide (0-100) pg/ml Total Protein (6.0-8.3) gm/dl Albumin (3.4-5.0) gm/dl Globulin (2.5-4.0) gm/dl Albumin/Globulin Ratio (0.9-2) Lipase (11-82) U/L Procalcitonin (0-0.5) ng/ml TSH (0.300-4.500) uIu/ml Free T4 (0.61-1.60) ng/dl Urine Color Yellow Urine Appearance Clear (Clear) Urine pH 5.5 (4.5-7.5) Ur Specific [place] 1.019 (1.000-1.030) Urine Protein Negative (Negative) Urine Glucose (UA) Negative (Negative) Urine Ketones Trace H (Negative) Urine Blood Negative (Negative) Urine Nitrite Positive A (Negative) Urine Bilirubin Negative (Negative) Urine Urobilinogen Negative (Negative) Ur Leukocyte Esterase Trace H (Negative) Urine WBC (Auto) 0-5 (0-5) /hpf Urine RBC (Auto) 3-5 H (0-2) /hpf U Hyaline Cast (Auto) >20 H (0-2) /lpf U Epithel Cells (Auto) 0-2 (0-2) /hpf Urine Bacteria (Auto) 4+ H (None Seen) Nasal Screen MRSA (PCR) Negative (Negative) Adenovirus (PCR) (NotDetected) B. pertussis DNA (PCR) (NotDetected) B.parapertussis DNA PCR (NotDetected) C. pneumoniae DNA (PCR) (NotDetected) Coronavirus OC43 (PCR) (NotDetected) Coronavirus HKU1 (PCR) (NotDetected) Coronavirus 229E (PCR) (NotDetected) SARS-CoV-2 (PCR) (NotDetected) Coronavirus NL63 (PCR) (NotDetected) Human Metapneumovir PCR (NotDetected) Influenza Type A (PCR) (NotDetected) Influenza Type B (PCR) (NotDetected) M. pneumoniae (PCR) (NotDetected) Parainfluenza 1 (PCR) (NotDetected) Parainfluenza 2 (PCR) (NotDetected) Parainfluenza 3 (PCR) (NotDetected) Parainfluenza 4 (PCR) (NotDetected) RSV (PCR) (NotDetected) Entero/Rhino (PCR) (NotDetected) Blood Type Antibody Screen Administered Medications Calcium Carbonate (Calcium Carbonate 1,250 Mg/5 Ml Udc) 1,250 mg PO BID [facility] Stop: 02/25/24 08:59 Last Admin: 01/26/24 11:04 Dose: 1,250 mg Documented By: IRMA Furosemide (Furosemide 40 Mg Tab) 40 mg PO QAM [facility] Stop: 02/25/24 08:59 Last Admin: 01/26/24 09:20 Dose: 40 mg Documented By: IRMA Famotidine (Pepcid 20mg Iv Push) 20 mg in 5 mls @ 2.5 mls/min IV Q12H [facility] Stop: 02/25/24 08:59 Last Admin: 01/26/24 09:13 Dose: 2.5 mls/min Documented By: IRMA Cefepime HCl (Maxipime 2000mg) 2,000 mg in 20 mls @ 5 mls/min IV Q8H [facility]; Protocol Stop: 02/02/24 05:59 Last Admin: 01/26/24 05:19 Dose: 5 mls/min Documented By: ANU Magnesium Oxide (Magnesium Oxide 400 Mg Tab) 400 mg PO BID [facility] Stop: 02/25/24 08:59 Last Admin: 01/26/24 09:15 Dose: 400 mg Documented By: IRMA Multivitamins (Multivitamin Tab) 1 tab PO DAILY [facility] Stop: 02/25/24 08:59 Last Admin: 01/26/24 08:31 Dose: 1 tab Documented By: IRMA Mycophenolate Mofetil (Mycophenolate Mofetil 250 Mg Cap) 500 mg PO Q12H [facility] Stop: 02/25/24 07:59 Last Admin: 01/26/24 09:13 Dose: 500 mg Documented By: IRMA Ondansetron HCl (Ondansetron Inj 2 Mg/Ml 2 Ml Vial) 4 mg IV Q6H PRN PRN Reason: NAUSEA/VOMITING Stop: 02/25/24 03:33 Last Admin: 01/26/24 04:24 Dose: 4 mg Documented By: ANU Polyethylene Glycol (Polyethylene (Miralax) 17 Gm Pack) 17 gm PO DAILY PRN PRN Reason: Constipation Stop: 02/25/24 08:42 Last Admin: 01/26/24 09:15 Dose: 17 gm Documented By: IRMA Potassium Chloride (Potassium Chloride 20 Meq/15 Ml Udc) 40 meq PO TID [facility] Stop: 02/25/24 08:59 Last Admin: 01/26/24 09:15 Dose: 40 meq Documented By: IRMA Senna/Docusate Sodium (Docusate Sodium/Senna 50/8.6mg Tab) 1 tab PO QAM [facility] Stop: 02/25/24 08:59 Last Admin: 01/26/24 08:31 Dose: 1 tab Documented By: IRMA Spironolactone (Spironolactone 25 Mg Tab) 25 mg PO QAM [facility] Stop: 02/25/24 08:59 Last Admin: 01/26/24 09:20 Dose: 25 mg Documented By: IRMA Discontinued Medications Bisacodyl (Bisacodyl 10 Mg Supp) 10 mg [place] NOW STA Stop: 01/26/24 04:38 Last Admin: 01/26/24 05:19 Dose: 10 mg Documented By: ANU Fentanyl Citrate (Fentanyl Citrate Pf 100 Mcg/2 Ml Vial) 50 mcg IV NOW STA Stop: 01/25/24 22:56 Last Admin: 01/25/24 23:43 Dose: 50 mcg Documented By: MED Sodium Chloride (Nss) 250 mls @ 999 mls/hr IV .Q16M ONE Stop: 01/25/24 22:59 Last Infusion: 01/26/24 02:43 Dose: Infused Documented By: plant quality manager: 01/25/24 22:53 Dose: 999 mls/hr Documented By: MED Piperacillin Sod/Tazobactam Sod (Zosyn) 4.5 gm in 100 mls @ 200 mls/hr IV NOW ONE; Protocol Stop: 01/26/24 00:36 Last Infusion: 01/26/24 02:43 Dose: Infused Documented By: plant quality manager: 01/26/24 00:19 Dose: 200 mls/hr Documented By: MED Magnesium Sulfate/Dextrose (Magnesium Sulfate / D5w) 1 gm in 100 mls @ 50 mls/hr IV Q2H [facility] Stop: 01/26/24 06:14 Last Infusion: 01/26/24 08:32 Dose: Infused Documented By: Admin: 01/26/24 04:25 Dose: 50 mls/hr Documented By: Infusion: 01/26/24 04:23 Dose: Infused Documented By: Admin: 01/26/24 02:23 Dose: 50 mls/hr Documented By: MED Potassium Chloride (K Olegario / Wtr) 10 meq in 100 mls @ 100 mls/hr IV Q1H [facility]; Protocol Stop: 01/26/24 04:14 Last Infusion: 01/26/24 05:58 Dose: Infused Documented By: Admin: 01/26/24 03:37 Dose: 100 mls/hr Documented By: Infusion: 01/26/24 03:23 Dose: Infused Documented By: Admin: 01/26/24 02:23 Dose: 100 mls/hr Documented By: MED Albumin Human (Albumin 25%) 25 gm in 100 mls @ 50 mls/hr IV Q2H [facility] Stop: 01/26/24 06:14 Last Infusion: 01/26/24 08:16 Dose: Infused Documented By: Admin: 01/26/24 05:19 Dose: 50 mls/hr Documented By: Infusion: 01/26/24 05:19 Dose: Infused Documented By: Admin: 01/26/24 03:43 Dose: 50 mls/hr Documented By: ANU Famotidine (Pepcid 20mg Iv Push) 20 mg in 5 mls @ 2.5 mls/min IV NOW STA Stop: 01/26/24 02:21 Last Admin: 01/26/24 03:51 Dose: 2.5 mls/min Documented By: ANU Calcium Gluconate () 1,000 mg in 60 mls @ 240 mls/hr IV Q15M [facility] Stop: 01/26/24 04:59 Last Infusion: 01/26/24 05:58 Dose: Infused Documented By: Admin: 01/26/24 05:27 Dose: 240 mls/hr Documented By: Infusion: 01/26/24 05:27 Dose: Infused Documented By: Admin: 01/26/24 05:20 Dose: 240 mls/hr Documented By: Infusion: 01/26/24 04:40 Dose: Infused Documented By: Admin: 01/26/24 04:25 Dose: 240 mls/hr Documented By: ANU Magnesium Sulfate/Dextrose (Magnesium Sulfate / D5w) 1 gm in 100 mls @ 50 mls/hr IV Q2H [facility] Stop: 01/26/24 10:14 Last Infusion: 01/26/24 11:26 Dose: Infused Documented By: Admin: 01/26/24 08:31 Dose: 50 mls/hr Documented By: Infusion: 01/26/24 08:19 Dose: Infused Documented By: Admin: 01/26/24 06:19 Dose: 50 mls/hr Documented By: ANU Ioversol (Optiray 320 100ml) 91 ml IV ONCE ONE Stop: 01/26/24 00:11 Last Admin: 01/26/24 00:10 Dose: 91 ml Documented By: PRERNA Ondansetron HCl (Ondansetron Inj 2 Mg/Ml 2 Ml Vial) 4 mg IV NOW STA Stop: 01/25/24 22:56 Last Admin: 01/25/24 23:03 Dose: 4 mg Documented By: CLARIBEL Potassium Chloride (Potassium Chloride 20 Meq/15 Ml Udc) 40 meq PO NOW STA Stop: 01/26/24 03:53 Last Admin: 01/26/24 04:24 Dose: 40 meq Documented By: ANU Imaging Data Radiologist's Impression: Abdomen/Pelvis CT 01/25/24 22:43 EXAM: CT abd pelvis IV con only CLINICAL HISTORY: weak, abd pain, n/v, hx sbo 92ml of 320 TECHNIQUE: Contiguous axial images were obtained from the level of the diaphragm to the pubic symphysis with intravenous contrast . Coronal and sagittal reconstructions were likewise performed and indicated to increase the sensitivity for detecting clinically relevant pathology. If IV contrast material had not been administered, the likelihood of detecting abnormalities relevant to the patient's condition would have been substantially decreased. CT scan was performed according to ALARA (as low as reasonable achievable). COMPARISON: 12/30/2023 13:37:18 GENERATOR MAN FINDINGS: The visualized lung bases demonstrates moderate bilateral pleural efusion with underlying atelectasis.Multiple patchy consolidations and ground glass opacifications in the visualized right middle,left upper and bilateral lower lobes along with atelectasis. The liver is normal in size with diffuse fatty infiltration.No focal liver lesions are seen. There is no intra or extrahepatic biliary ductal dilatation. Hepatic vasculature is patent. Post cholecystectomy status. The spleen, pancreas, and adrenal glands are unremarkable. The kidneys are normal in size and attenuation. Simple cortical right renal mid pole cyst asuring 2 x 1.8 cm.There is no hydronephrosis or perinephric fat stranding. No renal calculi or renal masses are identified. The ureters are normal in caliber and no ureteral calculi are seen. The bladder is normal in contour. Pelvic viscera are unremarkable. Gross ascites with diffuse mesentric edema. No focal or diffuse bowel wall thickening or evidence of bowel obstruction is identified. No inflamed appendix is visualized in the right lower quadrant . Abdominal and pelvic vasculature is patent. No adenopathy is seen. Moderate diffuse abdominal wall edema. No aggressive appearing osseous lesions are identified.Severe degnerative changes in the vertebra. IMPRESSION: 1. Visualized lung bases demonstrates moderate bilateral pleural efusion with underlying atelectasis.Multiple patchy consolidations and ground glass opacifications in the visualized right middle,left upper and bilateral lower lobes along with atelectasis.Correlate clinically. 2. Gross ascites with diffuse mesentric edema. 3. Diffuse fatty infiltration of liver. 4. Moderate diffuse abdominal wall edema. 5. On comparison with prior CT, there is significant interval increase in bilateral pleural effusion and ascites. Electronically signed by Javid Jha 01-26-2024 01:50 AM Discharge Plan Visit Data Chief Complaint: Abdominal Pain Stated Complaint: Abdominal Pain, N/V/D ED Provider: Konstantin Soliz Discharge Problem: Acute UTI, Atrial fibrillation, Gastroenteritis, Abdominal pain Patient Disposition: Admitted As Inpatient Discharge Instructions Interventions: ED Discharge Assessment Last Done: 01/26/24 03:18 Discharge Problem: Abdominal pain Qualifiers: Abdominal location: generalized Qualified Code(s): R10.84 - Generalized abdominal pain
[2024-01-25] MEDS: SODIUM CHLORIDE 0.9% 250 ML IV ONE (22:53)
[2024-01-25] MEDS: ONDANSETRON INJ 2 MG/ML 2 ML VIAL IV STA (23:03)
[2024-01-25 23:29] LABS: iSTAT Creatinine 0.7 mg/dl (0.6-1.3); iSTAT Hemoglobin 8.8 g/dl (12.0-16.0); iSTAT Ionized Calcium 0.98 mmol/l (1.12-1.32); iSTAT Potassium 2.6 mmol/L (3.3-5.0)
[2024-01-25 23:33] LABS: Basophils # (auto) 0.01 K/uL (0.00-0.20); Basophils % (auto) 0.1 %; Hemoglobin 8.4 g/dl (12.0-16.0); Immature Granulocytes # (auto) 0.06 K/uL (0.01-0.20); Immature Granulocytes % (auto) 0.5 %; Lymphocytes # (auto) 1.31 K/uL (1.20-3.40); Lymphocytes % (auto) 11.7 %; Mean Corpuscular Hemoglobin 32.4 pg (25.0-34.0); Mean Corpuscular Hgb Conc 33.6 g/dL (32.0-36.0); Mean Corpuscular Volume 96.5 fL (80.0-100.0); Mean Platelet Volume 10.4 fL (9.4-12.4); Monocytes # (auto) 0.68 K/uL (0.11-0.59); Neutrophils # (auto) 9.18 K/uL (1.40-6.50); Neutrophils % (auto) 81.7 %; Platelet Count 243 K/uL (130-400); RDW Coefficient of Variation 14.9 % (11.5-14.5); RDW Standard Deviation 51.3 fL (36.4-46.3); Red Blood Count 2.59 M/uL (4.20-5.40); White Blood Count 11.24 K/ul (4.8-10.8)
[2024-01-25] MEDS: fentaNYL citrate PF 100 MCG/2 ML VIAL IV STA (23:43)
[2024-01-25 23:50] LABS: Albumin Globulin Ratio 1.1 (0.9-2); Albumin Level 2.6 gm/dl (3.4-5.0); BUN Creatinine Ratio 59.1 (10-20); Bilirubin,Total 1.1 mg/dl (0.2-1.0); Calcium 7.5 mg/dl (8.6-10.3); Creatinine Clr Calc Pharmacy 117.3 ml/min; Globulin 2.3 gm/dl (2.5-4.0); Magnesium 1.5 mg/dl (1.7-2.4); Potassium 2.8 mmol/L (3.5-5.1); Total Protein 4.9 gm/dl (6.0-8.3)
[2024-01-25 23:51] LABS: Adenovirus PCR Not Detected (NotDetected); Bordetella parapertussis PCR Not Detected (NotDetected); Bordetella pertussis PCR Not Detected (NotDetected); Chlamydia pneumoniae PCR Not Detected (NotDetected); Coronavirus 229E PCR Not Detected (NotDetected); Coronavirus CoV-2 (COVID19)PCR Not Detected (NotDetected); Coronavirus HKU1 PCR Not Detected (NotDetected); Coronavirus NL63 PCR Not Detected (NotDetected); Coronavirus OC43PCR Not Detected (NotDetected); Human Metapneumovirus PCR Not Detected (NotDetected); Influenza A PCR Not Detected (NotDetected); Influenza B PCR Not Detected (NotDetected); Mycoplasma pneumoniae PCR Not Detected (NotDetected); Parainfluenza Virus 1 PCR Not Detected (NotDetected); Parainfluenza Virus 2 PCR Not Detected (NotDetected); Parainfluenza Virus 3 PCR Not Detected (NotDetected); Parainfluenza Virus 4 PCR Not Detected (NotDetected); Respiratory Syncytial VirusPCR Not Detected (NotDetected); Rhinovirus/Enterovirus PCR Not Detected (NotDetected)
[2024-01-25 23:56] LABS: Troponin I High Sensitivity 19.8 pg/ml (0-14)
[2024-01-25 23:58] LABS: INR 3.8 (0.9-1.1); Prothrombin Time 36.6 Seconds (9.0-12.0)
[2024-01-26 00:06] LABS: Thyroid Stimulating Hormone 5.388 uIu/ml (0.300-4.500)
[2024-01-26] MEDS: OPTIRAY 320 100ml IV ONE (00:10)
[2024-01-26 00:14] LABS: Appearance Urine Clear (Clear); Bacteria Urine Automated 4+ (None Seen); Bilirubin Urine Negative (Negative); Blood Urine Negative (Negative); Cast Urine Automated >20 /lpf (0-2); Color Urine Yellow; Epithelial Cell Urine Auto 0-2 /hpf (0-2); Glucose Urine UA Negative (Negative); Ketones Urine Trace (Negative); Leukocyte Esterase Urine Trace (Negative); Nitrite Urine Positive (Negative); Protein Urine Negative (Negative); Specific Gravity Urine 1.019 (1.000-1.030); Urobilinogen Urine Negative (Negative); WBC Urine Automated 0-5 /hpf (0-5); pH Urine 5.5 (4.5-7.5)
--- NOTE | 2024-01-26 00:18 | XRay Report ---
EXAM: XR chest 1V portable CLINICAL HISTORY: TECHNIQUE: An X-ray image of the chest is obtained in AP poetable projection. COMPARISON: 12/31/2023. FINDINGS: The patient is rotated for a chest radiograph. Low lung volume could be due to poor inspiratory effort. Pulmonary Parenchyma: There is a suggestion of an interval decrease in the bilateral hilar vascular congestion and perihilar vascular markings. Probable minimal bilateral pleural effusion has also resolved with relatively sharp costophrenic angles on the current radiograph. No evidence of consolidation, collapse, or focal opacities. No pulmonary nodules are identified. Heart and Mediastinum: Borderline cardiomegaly. Mediastinal hilar shadows are normal. Bony Thorax: Degenerative changes are noted. The bony thorax appears intact without fractures or deformities. Soft Tissues: Soft tissues overlying the chest wall are unremarkable. IMPRESSION: 1. Stable borderline cardiomegaly. 2. Interval decrease in the bilateral hilar vascular congestion along with reduced perihilar vascular markings. 3. Probable minimal bilateral pleural effusion has also resolved with relatively sharp costophrenic angles on the current radiograph. Electronically signed by Alexis Loredo 01-26-2024 12:17 AM
[2024-01-26] MEDS: PIPERACILLIN/TAZOBACTAM 4.5 GM/100 ML BAG IV ONE (00:19)
[2024-01-26 00:41] LABS: T4 Free Thyroxine 0.63 ng/dl (0.61-1.60)
--- NOTE | 2024-01-26 01:51 | CT Scan Report ---
EXAM: CT abd pelvis IV con only CLINICAL HISTORY: weak, abd pain, n/v, hx sbo 92ml of 320 TECHNIQUE: Contiguous axial images were obtained from the level of the diaphragm to the pubic symphysis with intravenous contrast . Coronal and sagittal reconstructions were likewise performed and indicated to increase the sensitivity for detecting clinically relevant pathology. If IV contrast material had not been administered, the likelihood of detecting abnormalities relevant to the patient's condition would have been substantially decreased. CT scan was performed according to ALARA (as low as reasonable achievable). COMPARISON: 12/30/2023 13:37:18 PHARMACY INFORMATICIST FINDINGS: The visualized lung bases demonstrates moderate bilateral pleural efusion with underlying atelectasis.Multiple patchy consolidations and ground glass opacifications in the visualized right middle,left upper and bilateral lower lobes along with atelectasis. The liver is normal in size with diffuse fatty infiltration.No focal liver lesions are seen. There is no intra or extrahepatic biliary ductal dilatation. Hepatic vasculature is patent. Post cholecystectomy status. The spleen, pancreas, and adrenal glands are unremarkable. The kidneys are normal in size and attenuation. Simple cortical right renal mid pole cyst asuring 2 x 1.8 cm.There is no hydronephrosis or perinephric fat stranding. No renal calculi or renal masses are identified. The ureters are normal in caliber and no ureteral calculi are seen. The bladder is normal in contour. Pelvic viscera are unremarkable. Gross ascites with diffuse mesentric edema. No focal or diffuse bowel wall thickening or evidence of bowel obstruction is identified. No inflamed appendix is visualized in the right lower quadrant . Abdominal and pelvic vasculature is patent. No adenopathy is seen. Moderate diffuse abdominal wall edema. No aggressive appearing osseous lesions are identified.Severe degnerative changes in the vertebra. IMPRESSION: 1. Visualized lung bases demonstrates moderate bilateral pleural efusion with underlying atelectasis.Multiple patchy consolidations and ground glass opacifications in the visualized right middle,left upper and bilateral lower lobes along with atelectasis.Correlate clinically. 2. Gross ascites with diffuse mesentric edema. 3. Diffuse fatty infiltration of liver. 4. Moderate diffuse abdominal wall edema. 5. On comparison with prior CT, there is significant interval increase in bilateral pleural effusion and ascites. Electronically signed by Javid Jha 01-26-2024 01:50 AM
[2024-01-26] MEDS ORDERED: ACETAMINOPHEN 1,000 MG/100 ML VIAL IV PRN (02:23)
[2024-01-26] MEDS: MAGNESIUM SULFATE / D5W 1 GM/100 ML BAG IV SCH ×2 (02:23→06:19)
[2024-01-26] MEDS: POTASSIUM CHLORIDE / WTR 10 MEQ/100 ML PLCT IV SCH (02:23)
--- NOTE | 2024-01-26 02:45 | History & Physical Report ---
Date of Service January 26, 2024 Assessment & Plan (1) Anasarca: (2) Pleural effusion: (3) Ascites: (4) Acute on chronic respiratory failure with hypoxia: (5) Hypomagnesemia: (6) Hypokalemia: (7) Hypoalbuminemia due to protein-calorie malnutrition: Plan Acute on chronic respiratory failure with hypoxia- Secondary to fluid overload causing pleural effusions, anasarca and ascites, likely secondary to protein calorie malnutrition with hypoalbuminemia N.p.o. due to altered mental state Electrolyte disturbances/hypomagnesemia/hypokalemia/hypoalbuminemia- There was difficulty obtaining adequate IV access, but once obtained, patient will be given magnesium sulfate 2 g IV and potassium chloride 10 mill equivalent IV riders x 2 Patient will also be given albumin 50 g IV x 1, due to relative hypotension Anasarca/pleural effusions/ascites- Once adequate IV access obtained, patient to be given furosemide 40 mg IV Dissipate the patient may need to be on pressors if she becomes hypotensive, therefore patient is being admitted to the ICU Multifocal pneumonia- Patient was given Zosyn 4.5 g IV in the ED She will be changed to cefepime 2 g IV every 12 hours MRSA swab ordered and pending DuoNebs every 2 hours as needed Coagulopathy- Patient is on Xarelto for atrial fibrillation INR is 3.8, suggesting that there may be some liver dysfunction as well Follow serial laboratories in the a.m. Elevated troponin- Troponin 19.8 upon admission, follow-up pending Most recent echocardiogram on with ejection fraction 55-60% Anemia- Hemoglobin 8.4 on admission Hemoccult stools Follow serial laboratories History of Present Illness Chief Complaint: The patient presents to the emergency department via ambulance from [facility] due to several days of shortness of breath, abdominal discomfort with intermittent nausea and vomiting. Primary Care Provider: Marcia Clemente MD The patient is a 68-year-old female with a past medical history including atrial fibrillation, interstitial lung disease 2 L oxygen requiring, GERD, scleroderma and SBO. Most recent admissions are from 11/13-11/17/2023, and 12/27-01/21. The patient initially was accompanied by her sister, but noted the patient had not been walking much since her hospitalization. The patient's primary symptom during my assessment was that of shortness of breath. Allergies Allergy/AdvReac Type Severity Reaction Status Date / Time simvastatin [From Zocor] Allergy Intermediate "made me Verified 01/26/24 01:31 pass out" ibuprofen Allergy Mild stomach Verified 01/26/24 01:31 pain naproxen [From Aleve] Allergy Mild STOMACH Verified 01/26/24 01:31 PAIN oxycodone [From Percocet] Allergy Mild stomach Verified 01/26/24 01:31 pain clams AdvReac Gastrointestinal Verified 01/26/24 01:31 Upset lactose AdvReac Gastrointestinal Verified 01/26/24 01:31 Upset oyster extract AdvReac Gastrointestinal Verified 01/26/24 01:31 Upset scallops AdvReac Gastrointestinal Verified 01/26/24 01:31 Upset Home Medications Medication Instructions Recorded Confirmed Type hydroxychloroquine 200 mg tablet 400 mg PO QPM 02/23/19 01/26/24 History rivaroxaban 20 mg tablet (Xarelto) 20 mg PO QPM 02/23/19 01/26/24 History metoprolol succinate 100 mg 100 mg PO QPM 04/25/20 01/26/24 History tablet,extended release 24 hr Saccharomyces boulardii 250 mg 250 mg PO QAM 04/28/21 01/26/24 History capsule (Digest Probiotic (S.boulardii)) calcium carbonate 500 mg PO QAM 04/28/21 01/26/24 History bkpggccr-cxo-IO 200 mcg-vit K 15 1 tab PO DAILY 04/28/21 01/26/24 History mcg-lycope 150 dmw-dndams-nigz tablet (Ocuvite Eye Plus Multi) omeprazole 40 mg capsule,delayed 40 mg PO QAM 04/28/21 01/26/24 History release spironolactone 25 mg tablet 25 mg PO QAM 03/29/22 01/26/24 History cyanocobalamin (vitamin B-12) 500 500 mcg PO DAILY 05/28/22 01/26/24 History mcg tablet dhswpc-anadvapb-aohbzni 1 cap PO TIDM 05/28/22 01/26/24 History 6,000-19,000-30,000 unit capsule,delayed rel (Creon) mycophenolate mofetil 500 mg tablet 500 mg PO Q12 05/28/22 01/26/24 History prednisolone acetate 1 % eye 1 drp OPL QPM 05/28/22 01/26/24 History drops,suspension simethicone 80 mg chewable tablet 80 mg PO QID PRN GAS OR FLATULENCE 05/28/22 01/26/24 History cholecalciferol (vitamin D3) 25 10,000 unit PO QAM 11/29/22 01/26/24 History mcg (1,000 unit) capsule (Vitamin D3) magnesium oxide 400 mg PO DAILY 06/16/23 01/26/24 History albuterol sulfate 90 mcg/actuation 1 puff inhalation Q6 PRN Wheezing 12/28/23 01/26/24 History aerosol inhaler ferrous sulfate 325 mg (65 mg 325 mg PO QAM 12/28/23 01/26/24 History iron) tablet (Iron (ferrous sulfate)) furosemide 40 mg tablet 40 mg PO QAM #30 tabs 01/02/24 01/26/24 Rx acetaminophen 650 mg 1,300 mg PO Q8H 01/26/24 01/26/24 History tablet,extended release (Arthritis Pain Relief (acetaminophen) ER) albuterol sulfate 2.5 mg/3 mL 2.5 mg inhalation Q6H 01/26/24 01/26/24 History (0.083 %) solution for nebulization cetirizine 10 mg tablet 10 mg PO DAILY 01/26/24 01/26/24 History docusate sodium 100 mg capsule 100 mg PO BID 01/26/24 01/26/24 History (Dulcolax Stool Softener (docusate)) fluticasone propionate 115 1 puff inhalation BID 01/26/24 01/26/24 History mcg-salmeterol 21 mcg/actuation HFA inhaler (Advair HFA) lactase 9,000 unit tablet (Lactase 9,000 unit PO QID PRN Lactose 01/26/24 01/26/24 History Fast Acting) Intolerance multivitamin (Daily-Paty tablet) 1 tab PO DAILY 01/26/24 01/26/24 History ondansetron 8 mg disintegrating 8 mg PO Q4 PRN N/V 01/26/24 01/26/24 History tablet tramadol 50 mg tablet 50 mg PO Q6 01/26/24 01/26/24 History triamcinolone acetonide 55 mcg 2 spray intranasal DAILY 01/26/24 01/26/24 History nasal spray aerosol (Nasacort) zinc oxide 20 % topical ointment 1 applic topical BID 01/26/24 01/26/24 History Past Med/Surg History Problem List (Updated 01/26/24 @ 05:37 by Emiliano Maher MD) Hypoalbuminemia due to protein-calorie malnutrition Acute on chronic respiratory failure with hypoxia Ascites Pleural effusion Elevated INR Poor intravenous access Electrolyte disturbance Abdominal pain (Acute) Gastroenteritis (Acute) Acute UTI (Acute) Cachexia Felon of finger of left hand Finger infection Anasarca Duodenal stricture Atrial fibrillation (Acute) on xarelto follows with Dr. Bustamante > no pacer Bilateral leg weakness (Acute) Generalized weakness (Chronic) Anemia (Acute) Pressure ulcer, buttock (Acute) Surgical wound, non healing (Acute) Hypokalemia (Acute) Hypomagnesemia Acute respiratory failure with hypoxia Lumbar degenerative disc disease Stage III pressure ulcer (Acute) Gastroparesis Dysphagia Vocal cord nodules Anticoagulant long-term use History of atrial fibrillation (Acute) Pulmonary fibrosis (Acute) Atrial flutter (Acute) Allergic rhinitis caused by mold (Chronic) Allergic rhinitis due to dust mite (Chronic) Allergic rhinitis due to animal hair and dander (Chronic) Allergic rhinitis due to pollen (Chronic) GERD (gastroesophageal reflux disease) Raynaud's syndrome Asthma (Chronic) rare res inh use Pulmonary fibrosis (Chronic) Medical History Acute on chronic respiratory failure with hypercapnia Acute respiratory failure with hypercapnia Acute hyponatremia Urinary tract infection Acute constipation Hyponatremia Constipation Macrocytic anemia Weakness Pallor Induration of periwound skin Pain of right scapula Hypokalemia Hypoxia Bronchitis due to human metapneumovirus (hMPV) Dyspnea on minimal exertion MONTES (dyspnea on exertion) Hypoxia Acute respiratory distress Acute bronchitis Regurgitation of food Encounter for pre-operative examination Acute upper respiratory infection Hypomagnesemia MONTES (dyspnea on exertion) Nausea Decreased appetite Hypomagnesemia Decubitus skin ulcer Hypertension Scleroderma History of COVID-19 fall 2021 Poor intravenous access "took 2 hours to get IV in for last procedure, finally needed the [place] machine to get in place, had to be put in by anesthesia" Environmental and seasonal allergies History of cardioversion x several Chronic back pain Chronic diarrhea Gastroparesis On anticoagulant therapy xarelto daily Surgical History No significant past surgical history S/P debridement (01/28/23) Abdominal Wall Wound Debridement, Skin, Subcutaneous, Fascia 15x8 - Rasheed Ward MD, FACS > pt still has at present, follows with wound clinic History of benign breast biopsy History of dilatation and curettage History of total right knee replacement (TKR) History of colonoscopy History of esophagogastroduodenoscopy (EGD) Status post fine needle biopsy on thyroid--all benign History of tooth extraction full upper History of bilateral cataract extraction History of cardiac radiofrequency ablation (~10/2020) 2020 @ [facility] History of hand surgery finger surgery > right History of hernia repair History of cholecystectomy History of surgery Mutiple GI procedures for blocked bowel. 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 Beliefs That Will Affect Care: None marital status: Single Current Living Situation: Personal Care Facility Current Living Situation Comment: Pt was recently dicharged from [facility] to [facility] and then to [facility] current occupational status: retired Other Information That Helps Us Care for You: No Feels Safe at Home: Yes Safety Concerns: Feels Safe At This Time Diet: other Diet Comment: gastroparesis caffeine: Yes Assistive Devices: Walker Review of Systems Review of Systems: The patient denies sore throat, fevers, chills, sweats, blood in urine or stool, dysuria, urinary frequency or urgency, rash, abnormal bruising or bleeding, focal or generalized weakness, numbness or tingling in arms or legs, neck pain, or night sweats. The review of systems is otherwise negative other than for that already noted above, and at least 10 systems have been reviewed. Physical Exam Physical Exam: The patient is lethargic, but responds to questions. normocephalic and atraumatic, lying in bed and in no acute distress. HEENT--PERRL, EOMI, mucous membranes and oropharynx dry. Neck--supple. No JVD. No bruits. Thyroid normal, trachea midline, no adenopathy. Heart--normal S1 and S2. No murmurs, rubs or gallops. Lungs--crackles at the bases bilaterally., no respiratory distress, no accessory muscle use. Abdomen--normal bowel sounds and soft. Nontender. Mildly distended Extremities--1+ bilateral pretibial pitting edema, left greater than right. Dermatologic--normal skin turgor, normal color, no abnormal lymph nodes, no rash. Neurologic--cranial nerves II through XII grossly intact. Rheumatologic--normal range of motion. Psychiatric-lethargic but responds to questioning. Results & Data Results & Data Vital Signs (Past 12 Hours) Vital Signs Temp Pulse Pulse Resp BP BP Pulse Ox 01/26/24 02:38 85 99 01/26/24 02:14 76 01/26/24 01:15 77 22 122/85 97 01/26/24 00:42 82 20 96 01/26/24 00:30 78 25 H 99 01/26/24 00:27 97 H 22 97 01/25/24 23:57 82 20 97 01/25/24 23:48 81 26 H 97 01/25/24 23:45 106/61 01/25/24 23:39 84 25 H 98 01/25/24 23:33 85 19 01/25/24 23:30 127/73 01/25/24 23:30 127/73 01/25/24 23:27 91 H 27 H 01/25/24 23:15 118/70 01/25/24 23:03 84 27 H 94 01/25/24 23:02 110/67 01/25/24 23:02 110/67 01/25/24 23:02 110/67 01/25/24 22:34 112/71 01/25/24 22:33 94 H 27 H 01/25/24 22:30 94 H 26 H 01/25/24 22:24 107 H 27 H 01/25/24 22:12 95 H 01/25/24 22:12 96 H 21 115/67 01/25/24 22:11 115/67 01/25/24 21:59 36.5 C O2 Flow Rate 01/26/24 02:38 01/26/24 02:14 01/26/24 01:15 2 01/26/24 00:42 01/26/24 00:30 01/26/24 00:27 01/25/24 23:57 01/25/24 23:48 01/25/24 23:45 01/25/24 23:39 01/25/24 23:33 01/25/24 23:30 01/25/24 23:30 01/25/24 23:27 01/25/24 23:15 01/25/24 23:03 01/25/24 23:02 01/25/24 23:02 01/25/24 23:02 01/25/24 22:34 01/25/24 22:33 01/25/24 22:30 01/25/24 22:24 01/25/24 22:12 01/25/24 22:12 01/25/24 22:11 01/25/24 21:59 Laboratory Results Laboratory Results WBC 10.13 K/ul (4.8-10.8) 01/26/24 04: RBC 2.32 M/uL (4.20-5.40) L 01/26/24 04:27 Hgb 7.7 g/dl (12.0-16.0) L 01/26/24 04:27 POC Hgb 8.8 g/dl (12.0-16.0) L 01/25/24 23:17 Hct 22.4 % (37.0-47.0) L 01/26/24 04:27 POC Hct 26 % (37-47) L 01/25/24 23:17 MCV 96.6 fL (80.0-100.0) 01/26/24 04:27 MCH 33.2 pg (25.0-34.0) 01/26/24 04:27 MCHC 34.4 g/dL (32.0-36.0) 01/26/24 04:27 RDW Std Deviation 51.3 fL (36.4-46.3) H 01/26/24 04:27 RDW Coeff of Lorenzo 15.0 % (11.5-14.5) H 01/26/24 04:27 Plt Count 211 K/uL (130-400) 01/26/24 04:27 MPV 10.5 fL (9.4-12.4) 01/26/24 04:27 Immature Gran % (Auto) 0.3 % 01/26/24 04: Neut % (Auto) 79.6 % 01/26/24 04:27 Lymph % (Auto) 13.1 % 01/26/24 04:27 Mathews % (Auto) 6.9 % 01/26/24 04:27 Eos % (Auto) 0.0 % 01/26/24 04: Baso % (Auto) 0.1 % 01/26/24 04:27 Neut # (Auto) 8.06 K/uL (1.40-6.50) H 01/26/24 04:27 Lymph # (Auto) 1.33 K/uL (1.20-3.40) 01/26/24 04:27 Mathews # (Auto) 0.70 K/uL (0.11-0.59) H 01/26/24 04:27 Eos # (Auto) 0.00 K/uL (0.00-0.50) 01/26/24 04:27 Baso # (Auto) 0.01 K/uL (0.00-0.20) 01/26/24 04:27 Immature Gran # (Auto) 0.03 K/uL (0.01-0.20) 01/26/24 04:27 Target Cells 2+ 01/26/24 04:27 PT 33.0 Seconds (9.0-12.0) H 01/26/24 04:27 INR 3.4 (0.9-1.1) H 01/26/24 04:27 POC Sodium 131 mmol/L (135-144) L 01/25/24 23:17 Sodium 133 mmol/L (136-145) L 01/26/24 04:27 POC Potassium 2.6 mmol/L (3.3-5.0) L 01/25/24 23:17 Potassium 3.0 mmol/L (3.5-5.1) L 01/26/24 04:27 POC Chloride 83 mmol/L (101-112) L 01/25/24 23:17 Chloride 89 mmol/L (98-107) L 01/26/24 04:27 Carbon Dioxide 38 mmol/L (21-32) H 01/26/24 04:27 POC Total CO2 32 mmol/L (24-31) H 01/25/24 23:17 Anion Gap 6 (3-11) 01/26/24 04:27 POC Anion Gap 20.0 mmol/L (16-25) 01/25/24 23:17 POC BUN 23 mg/dl (7-18) H 01/25/24 23:17 BUN 24 mg/dl (6-23) H 01/26/24 04:27 Creatinine 0.41 mg/dl (0.6-1.2) L 01/26/24 04:27 POC Creatinine 0.7 mg/dl (0.6-1.3) 01/25/24 23:17 Est Cr Clr Drug Dosing 125.9 ml/min 01/26/24 04:27 eGFR 106.44 01/26/24 04:27 BUN/Creatinine Ratio 58.5 (10-20) H 01/26/24 04:27 Glucose 104 mg/dl (70-99(Fasting)) H 01/26/24 04:27 POC Glucose (other) 101 mg/dl (70-99) H 01/25/24 23:17 Lactate 1.2 mmol/L (0.4-2.0) 01/25/24 23:13 Calcium 7.4 mg/dl (8.6-10.3) L 01/26/24 04:27 POC Ioniz Calcium Rafa 0.98 mmol/l (1.12-1.32) L 01/25/24 23:17 Phosphorus 3.4 mg/dl (2.5-4.9) 01/26/24 04:27 Magnesium 1.5 mg/dl (1.7-2.4) L 01/25/24 23:13 Total Bilirubin 1.1 mg/dl (0.2-1.0) H 01/26/24 04:27 AST 30 U/L (13-39) 01/26/24 04:27 ALT 38 U/L (7-52) 01/26/24 04:27 Alkaline Phosphatase 131 U/L (34-104) H 01/26/24 04:27 Total Creatine Kinase 42 U/L (26-192) 01/25/24 23:13 Troponin I High Sens 21.8 pg/ml (0-14) H 01/26/24 04:27 B-Natriuretic Peptide 274 pg/ml (0-100) H 01/25/24 23:13 Total Protein 4.7 gm/dl (6.0-8.3) L 01/26/24 04:27 Albumin 2.7 gm/dl (3.4-5.0) L 01/26/24 04:27 Globulin 2.0 gm/dl (2.5-4.0) L 01/26/24 04:27 Albumin/Globulin Ratio 1.4 (0.9-2) 01/26/24 04:27 Lipase 3 U/L (11-82) L 01/25/24 23:13 Procalcitonin 12.70 ng/ml (0-0.5) H 01/25/24 23:13 TSH 5.388 uIu/ml (0.300-4.500) H 01/25/24 23:13 Free T4 0.63 ng/dl (0.61-1.60) 01/25/24 23:13 Urine Color Yellow 01/25/24 23:39 Urine Appearance Clear (Clear) 01/25/24 23:39 Urine pH 5.5 (4.5-7.5) 01/25/24 23:39 Ur Specific Amado 1.019 (1.000-1.030) 01/25/24 23:39 Urine Protein Negative (Negative) 01/25/24 23:39 Urine Glucose (UA) Negative (Negative) 01/25/24 23:39 Urine Ketones Trace (Negative) H 01/25/24 23:39 Urine Blood Negative (Negative) 01/25/24 23:39 Urine Nitrite Positive (Negative) A 01/25/24 23:39 Urine Bilirubin Negative (Negative) 01/25/24 23:39 Urine Urobilinogen Negative (Negative) 01/25/24 23:39 Ur Leukocyte Esterase Trace (Negative) H 01/25/24 23:39 Urine WBC (Auto) 0-5 /hpf (0-5) 01/25/24 23:39 Urine RBC (Auto) 3-5 /hpf (0-2) H 01/25/24 23:39 U Hyaline Cast (Auto) >20 /lpf (0-2) H 01/25/24 23:39 U Epithel Cells (Auto) 0-2 /hpf (0-2) 01/25/24 23:39 Urine Bacteria (Auto) 4+ (None Seen) H 01/25/24 23:39 Nasal Screen MRSA (PCR) Negative (Negative) 01/26/24 02:41 Adenovirus (PCR) Not Detected (NotDetected) 01/25/24 22:48 B. pertussis DNA (PCR) Not Detected (NotDetected) 01/25/24 22:48 B.parapertussis DNA PCR Not Detected (NotDetected) 01/25/24 22:48 C. pneumoniae DNA (PCR) Not Detected (NotDetected) 01/25/24 22:48 Coronavirus OC43 (PCR) Not Detected (NotDetected) 01/25/24 22:48 Coronavirus HKU1 (PCR) Not Detected (NotDetected) 01/25/24 22:48 Coronavirus 229E (PCR) Not Detected (NotDetected) 01/25/24 22:48 SARS-CoV-2 (PCR) Not Detected (NotDetected) 01/25/24 22:48 Coronavirus NL63 (PCR) Not Detected (NotDetected) 01/25/24 22:48 Human Metapneumovir PCR Not Detected (NotDetected) 01/25/24 22:48 Influenza Type A (PCR) Not Detected (NotDetected) 01/25/24 22:48 Influenza Type B (PCR) Not Detected (NotDetected) 01/25/24 22:48 M. pneumoniae (PCR) Not Detected (NotDetected) 01/25/24 22:48 Parainfluenza 1 (PCR) Not Detected (NotDetected) 01/25/24 22:48 Parainfluenza 2 (PCR) Not Detected (NotDetected) 01/25/24 22:48 Parainfluenza 3 (PCR) Not Detected (NotDetected) 01/25/24 22:48 Parainfluenza 4 (PCR) Not Detected (NotDetected) 01/25/24 22:48 RSV (PCR) Not Detected (NotDetected) 01/25/24 22:48 Entero/Rhino (PCR) Not Detected (NotDetected) 01/25/24 22:48 Blood Type A Positive 01/25/24 23:13 Antibody Screen NEGATIVE 01/25/24 23:13 Impressions Chest X-Ray 01/25/24 22:35 EXAM: XR chest 1V portable CLINICAL HISTORY: TECHNIQUE: An X-ray image of the chest is obtained in AP poetable projection. COMPARISON: 12/31/2023. FINDINGS: The patient is rotated for a chest radiograph. Low lung volume could be due to poor inspiratory effort. Pulmonary Parenchyma: There is a suggestion of an interval decrease in the bilateral hilar vascular congestion and perihilar vascular markings. Probable minimal bilateral pleural effusion has also resolved with relatively sharp costophrenic angles on the current radiograph. No evidence of consolidation, collapse, or focal opacities. No pulmonary nodules are identified. Heart and Mediastinum: Borderline cardiomegaly. Mediastinal hilar shadows are normal. Bony Thorax: Degenerative changes are noted. The bony thorax appears intact without fractures or deformities. Soft Tissues: Soft tissues overlying the chest wall are unremarkable. IMPRESSION: 1. Stable borderline cardiomegaly. 2. Interval decrease in the bilateral hilar vascular congestion along with reduced perihilar vascular markings. 3. Probable minimal bilateral pleural effusion has also resolved with relatively sharp costophrenic angles on the current radiograph. Electronically signed by Alexis Loredo 01-26-2024 12:17 AM Abdomen/Pelvis CT 01/25/24 22:43 EXAM: CT abd pelvis IV con only CLINICAL HISTORY: weak, abd pain, n/v, hx sbo 92ml of 320 TECHNIQUE: Contiguous axial images were obtained from the level of the diaphragm to the pubic symphysis with intravenous contrast . Coronal and sagittal reconstructions were likewise performed and indicated to increase the sensitivity for detecting clinically relevant pathology. If IV contrast material had not been administered, the likelihood of detecting abnormalities relevant to the patient's condition would have been substantially decreased. CT scan was performed according to ALARA (as low as reasonable achievable). 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 The liver is normal in size with diffuse fatty infiltration.No focal liver lesions are seen. There is no intra or extrahepatic biliary ductal dilatation. Hepatic vasculature is patent. Post cholecystectomy status. The spleen, pancreas, and adrenal glands are unremarkable. The kidneys are normal in size and attenuation. Simple cortical right renal mid pole cyst asuring 2 x 1.8 cm.There is no hydronephrosis or perinephric fat stranding. No renal calculi or renal masses are identified. The ureters are normal in caliber and no ureteral calculi are seen. The bladder is normal in contour. Pelvic viscera are unremarkable. Gross ascites with diffuse mesentric edema. No focal or diffuse bowel wall thickening or evidence of bowel obstruction is identified. No inflamed appendix is visualized in the right lower quadrant . Abdominal and pelvic vasculature is patent. No adenopathy is seen. Moderate diffuse abdominal wall edema. No aggressive appearing osseous lesions are identified.Severe degnerative changes in the vertebra. IMPRESSION: 1. Visualized lung bases demonstrates moderate bilateral pleural efusion with underlying atelectasis.Multiple patchy consolidations and ground glass opacifications in the visualized right middle,left upper and bilateral lower lobes along with atelectasis.Correlate clinically. 2. Gross ascites with diffuse mesentric edema. 3. Diffuse fatty infiltration of liver. 4. Moderate diffuse abdominal wall edema. 5. On comparison with prior CT, there is significant interval increase in bilateral pleural effusion and ascites. Electronically signed by Javid Jha 01-26-2024 01:50 AM Code Status & VTE Plan Code Status Full code VTE Prophylaxis Plan VTE Prophylaxis will be ordered: Yes PG Care Time/CCT Total # of Minutes Spent Total Time Spent with Patient: Total time spent is greater than 50% in coordination of care (as documented) at patient's floor/unit and/or counseling patient: 55 minutes Coding Level of Care Code 62382 INT INP/OBS CARE 3/75MIN Diagnoses Anasarca R60.1 Pleural effusion J90 Ascites R18.8 Acute on chronic respiratory failure with hypoxia J96.21 Hypomagnesemia E83.42 Hypokalemia E87.6 Hypoalbuminemia due to protein-calorie malnutrition E88.09; E46
--- NOTE | 2024-01-26 03:40 | Critical Care Consultation ---
Date of Consultation January 26, 2024 Assessment & Plan (1) Electrolyte disturbance: (2) Poor intravenous access: (3) Abdominal pain: (4) Acute UTI: (5) Anasarca: (6) Atrial fibrillation: (7) Elevated INR: (8) Bilateral leg weakness: (9) Generalized weakness: Plan Reason Critically Ill: 68 YOF presents to hospital for acute on chronic weakness and fatigue- noted withmultiple electroltye disturbances, anasarca, poor IV access. To ICU for electorlyte replacement as K 2.8, MG 1.5, iCA 0.98, and INR of 3.8. Replete electrolytes and obtain access if needed. Neuro - Generalized weakness - chronic lower extremity weakness CAM ICU: NEGATIVE - Multifactorial at this time to include poor nutrition and protein intake complicated by sedentary deconditioning. - PT/OT consultation Cardiac - Afib on chronic anticoagulation - Afib currently rate controlled- last dose of Eliquis was 01/25/24 at 0900- will hold for now pending evaluation/need for possible drainage of ascitic fluid - pleural effusions are small and not drainable at this time - likely related to poor oncotic pressure - Hold rate controlling agents at this time until blood pressure proven stable as she will likely need IV diuretics as well - diurese when electrolytes are stabilized Respiratory - ILD, Hypoxic respiratory failure, hx of sleep disordered breathing - ILD- appears this is managed by [facility] and at [facility] - continue mycophenolate - Multifactorial at this time to include poor nutritional state- check PO4 and replete, ascites and small effusions - optimize as best as we are able - Continue 2LNC supplemental oxygen- previously was on CPAP but was stopped secondary to her weight loss from her bypass GI - gastroparesis with constipation , acute on chronic nausea, hypoalbuminemia - was evaluated last admission by surgery for concern of possible obstruction vs. duodenal stricture- obstructive like pattern cleared by KUB and diet was advanced - will add on bowel regeimen, consider adding Reglan and other promotility agents - replete albumin IV at this time 50 GM - consider 50gm TID or QID - Nutrition consultation appreciated for supplementation as well RENAL/LYTES - multiple electrolyte disturbances - Replete Mag, K, Calcium now aggressively- poor nutritional intake liley complicated by daily diuretics - follow BMP - ICU electrolyte protocol - UTI - no evidence of shock or organ dysfunction - may be chronic as she is with 4 + bacteria, 0-5 WBC, +nit, + leuk - Continue cefepime at this time until culture results ENDO - No acute needs HEME - chronic anticoagulation with elevated INR - INR is likely elevated to decrease vitamin K intake as well as absorption- replacement with dietary intake if unable consider IV - not actively bleeding at this time - Hold Eliquis at this time- afib stroke prophylaxis ID - UTI, MSSA - Proteus on previous Urine- await culture - multiple MSSA sources previously to include abdomen, finger and buttocks wound- not septic appearing at this time- if coverage desired would add ancef - MRSA swab negative LINES/IV ACCESS - PIV x2 Continue use of these lines- may need PICC vs CVL for stable access DVT PROPHYLAXIS - SCDS - hold chemoprophylaxis at this time until evaluation for para/thora completed as well as INR trending down DISPO: ICU at this time, likely can transfer once access is stabilized and initial round of electrolytes and albumin are completed I have personally spent 45l care time in the direct management of this patient. This is a life/limb threatening event. This includes time spent evaluating patient, direct bedside care, chart review, placing orders, interpretation of diagnostic studies, discussion with consultants, patient, and family members, as well as other required patient management activities. This time is exclusive of all separately billable procedures, separate from and in addition to any other critical care service time. Thank you for allowing us to participate in the care of this patient. Please refer to my attending physician's documentation for any further recommendations. Supervising Physician Co-Signing Physician Notes Patient seen and examined. EMR reviewed. Discussed with critical care DOMINIC. The patient is known to me from outpatient pulmonary clinic where I follow her for interstitial lung disease related to systemic sclerosis. She is declining clinically and has not been functionally independent for 2 months. She is required frequent hospitalizations and has progressive issues with anasarca, anemia, and electrolyte abnormalities. She was admitted now with some abdominal discomfort and multiple electrolyte abnormalities. She has obstipation noted on her CT scan. She has been receiving electrolytes. There was initial concern about blood pressure lability which prompted her to be admitted to the intensive care unit. She has not required pressors and has been stable. The patient reports that she has been using her BiPAP nightly at the assisted living center. She did not bring her machine with her. She is unclear on what her settings are. She is tolerating a diet. She appears weak frail and significantly debilitated. Compared to my prior evaluations with her, her clinical condition has significantly worsened. I am concerned that she may be progressing to end-of-life. Had a discussion with the patient. She states she will take these things under advisement. I recommended review with palliative care which she is agreeable to. Will pursue aggressive oral electrolyte replacement strategy. If her blood pressure remains stable throughout today, she can likely transfer to the floor as she will not require critical care services. Continue aggressive attempts at diuresis. Will place her on BiPAP empirically 02/04 when sleeping and at night. Continue antibiotics for now given her markedly elevated procalcitonin but the source is not immediately clear. I am not suspicious that this represents pulmonary infection. Urine may be a potential source. She is grown Proteus from her urine in the past and methicillin-sensitive Staph aureus from finger/deep soft tissue cultures. Continue attempts at diuresis. With regards to interstitial lung disease, would continue mycophenolate could be discontinued if it is felt to be contributing to her infectious etiologies or clinical decline. 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 Appears that some time in October she feels is when she started to develop diffuse edema to her abdomen and arms, and this has been evident by chronically low albumin as well. Patient was recently discharged from [facility] where she was treated for UTI and abscess of her finger, she went to rehab at [facility], and then to [facility]. She felt as she was getting stronger at rehab but has declined since then as she feels to weak. She feels she is unable to eat or take her protein shakes secondary to nausea. She presents today with continued weakness, diarrhea, and some abdominal pain. In the ER she was noted to have mild leukocytosis, multiple electrolyte abnormalities, elevated INR to 3.8, urine also appears to be likely infective vs. chronic. Her previous finger wound was staph- MSSA. Overall patient appears very weak and tired, she endorses very poor to little appetite over the 3-5 days. Patient is likely intravascularly dehydrated with extravascular edema. She will be brought to the ICU for evaluation for access, electrolyte replacements. CODE: FULL Allergies Allergy/AdvReac Type Severity Reaction Status Date / Time simvastatin [From Zocor] Allergy Intermediate "made me Verified 01/26/24 01:31 pass out" ibuprofen Allergy Mild stomach Verified 01/26/24 01:31 pain naproxen [From Aleve] Allergy Mild STOMACH Verified 01/26/24 01:31 PAIN oxycodone [From Percocet] Allergy Mild stomach Verified 01/26/24 01:31 pain clams AdvReac Gastrointestinal Verified 01/26/24 01:31 Upset lactose AdvReac Gastrointestinal Verified 01/26/24 01:31 Upset oyster extract AdvReac Gastrointestinal Verified 01/26/24 01:31 Upset scallops AdvReac Gastrointestinal Verified 01/26/24 01:31 Upset Home Medications Medication Instructions Recorded Confirmed Type hydroxychloroquine 200 mg tablet 400 mg PO QPM 02/23/19 01/26/24 History rivaroxaban 20 mg tablet (Xarelto) 20 mg PO QPM 02/23/19 01/26/24 History metoprolol succinate 100 mg 100 mg PO QPM 04/25/20 01/26/24 History tablet,extended release 24 hr Saccharomyces boulardii 250 mg 250 mg PO QAM 04/28/21 01/26/24 History capsule (Digest Probiotic (S.boulardii)) calcium carbonate 500 mg PO QAM 04/28/21 01/26/24 History tqekmkjl-gni-VS 200 mcg-vit K 15 1 tab PO DAILY 04/28/21 01/26/24 History mcg-lycope 150 wnt-ubbgvi-rvbw tablet (Ocuvite Eye Plus Multi) omeprazole 40 mg capsule,delayed 40 mg PO QAM 04/28/21 01/26/24 History release spironolactone 25 mg tablet 25 mg PO QAM 03/29/22 01/26/24 History cyanocobalamin (vitamin B-12) 500 500 mcg PO DAILY 05/28/22 01/26/24 History mcg tablet dyhdhl-pjafblki-kbmvyck 1 cap PO TIDM 05/28/22 01/26/24 History 6,000-19,000-30,000 unit capsule,delayed rel (Creon) mycophenolate mofetil 500 mg tablet 500 mg PO Q12 05/28/22 01/26/24 History prednisolone acetate 1 % eye 1 drp OPL QPM 05/28/22 01/26/24 History drops,suspension simethicone 80 mg chewable tablet 80 mg PO QID PRN GAS OR FLATULENCE 05/28/22 01/26/24 History cholecalciferol (vitamin D3) 25 10,000 unit PO QAM 11/29/22 01/26/24 History mcg (1,000 unit) capsule (Vitamin D3) magnesium oxide 400 mg PO DAILY 06/16/23 01/26/24 History albuterol sulfate 90 mcg/actuation 1 puff inhalation Q6 PRN Wheezing 12/28/23 01/26/24 History aerosol inhaler ferrous sulfate 325 mg (65 mg 325 mg PO QAM 12/28/23 01/26/24 History iron) tablet (Iron (ferrous sulfate)) furosemide 40 mg tablet 40 mg PO QAM #30 tabs 01/02/24 01/26/24 Rx acetaminophen 650 mg 1,300 mg PO Q8H 01/26/24 01/26/24 History tablet,extended release (Arthritis Pain Relief (acetaminophen) ER) albuterol sulfate 2.5 mg/3 mL 2.5 mg inhalation Q6H 01/26/24 01/26/24 History (0.083 %) solution for nebulization cetirizine 10 mg tablet 10 mg PO DAILY 01/26/24 01/26/24 History docusate sodium 100 mg capsule 100 mg PO BID 01/26/24 01/26/24 History (Dulcolax Stool Softener (docusate)) fluticasone propionate 115 1 puff inhalation BID 01/26/24 01/26/24 History mcg-salmeterol 21 mcg/actuation HFA inhaler (Advair HFA) lactase 9,000 unit tablet (Lactase 9,000 unit PO QID PRN Lactose 01/26/24 01/26/24 History Fast Acting) Intolerance multivitamin (Daily-Paty tablet) 1 tab PO DAILY 01/26/24 01/26/24 History ondansetron 8 mg disintegrating 8 mg PO Q4 PRN N/V 01/26/24 01/26/24 History tablet tramadol 50 mg tablet 50 mg PO Q6 01/26/24 01/26/24 History triamcinolone acetonide 55 mcg 2 spray intranasal DAILY 01/26/24 01/26/24 History nasal spray aerosol (Nasacort) zinc oxide 20 % topical ointment 1 applic topical BID 01/26/24 01/26/24 History Patient History Medical History Acute on chronic respiratory failure with hypercapnia Acute respiratory failure with hypercapnia Acute hyponatremia Urinary tract infection Acute constipation Hyponatremia Constipation Macrocytic anemia Weakness Pallor Induration of periwound skin Pain of right scapula Hypokalemia Hypoxia Bronchitis due to human metapneumovirus (hMPV) Dyspnea on minimal exertion MONTES (dyspnea on exertion) Hypoxia Acute respiratory distress Acute bronchitis Regurgitation of food Encounter for pre-operative examination Acute upper respiratory infection Hypomagnesemia MONTES (dyspnea on exertion) Nausea Decreased appetite Hypomagnesemia Decubitus skin ulcer Hypertension Scleroderma History of COVID-19 fall 2021 Poor intravenous access "took 2 hours to get IV in for last procedure, finally needed the [place] machine to get in place, had to be put in by anesthesia" Environmental and seasonal allergies History of cardioversion x several Chronic back pain Chronic diarrhea Gastroparesis On anticoagulant therapy xarelto daily Surgical History No significant past surgical history S/P debridement (01/28/23) Abdominal Wall Wound Debridement, Skin, Subcutaneous, Fascia 15x8 - Rasheed Ward MD, FACS > pt still has at present, follows with wound clinic History of benign breast biopsy History of dilatation and curettage History of total right knee replacement (TKR) History of colonoscopy History of esophagogastroduodenoscopy (EGD) Status post fine needle biopsy on thyroid--all benign History of tooth extraction full upper History of bilateral cataract extraction History of cardiac radiofrequency ablation (~10/2020) 2020 [place] [facility] [place] History of hand surgery finger surgery > right History of hernia repair History of cholecystectomy History of surgery Mutiple GI procedures for blocked bowel. History of gastric bypass raymundo-en-y Family History Father Hearing loss Brother Hearing loss Other Cancer Heart disease Hypertension No family history of adverse response to anesthesia No family history of bleeding disorder Stroke Social History Smoking Status: Never smoker Second Hand Exposure: No; Do You Dip or Chew Tobacco: No; Hx Alcohol Use: No Hx Substance Use: No Preferred Language: Central African Communication Ability: Effective Kitchen Porter Required: No Beliefs That Will Affect Care: None marital status: Single Current Living Situation: Personal Care Facility Current Living Situation Comment: Pt was recently dicharged from [facility] to [facility] and then to [facility] current occupational status: retired Other Information That Helps Us Care for You: No Feels Safe at Home: Yes Safety Concerns: Feels Safe At This Time Diet: other Diet Comment: gastroparesis caffeine: Yes Assistive Devices: Walker Review of Systems Review of Systems: REVIEW OF SYSTEMS: Constitutional: No fever, sweats or chills Eyes: No diplopia, no worsening or blurred vision ENT: normal hearing, no trouble swallowing Respiratory: (+_) shortness of breath, No cough, sputum, Cardiovascular: (+) dizziness, No chest pain, tightness or palpitations Abdomen: (+) nausea, vomitting, diffuse pain with gas Neurologic: (+) lower extremity, weakness, NO numbness/tingling, or balance problems Psychiatric: No anxiety or depression Skin: No rash or itch Physical Exam Physical Exam: PHYSICAL EXAM: General: Fatigued appearing, no distress Head: Normocephalic, atraumatic ENT: PERRL, EOMI, no pharyngeal exudate, mucous membranes dry Neuro: AAO x 3, speech clear and appropriate, strength intact bilaterally 5/5, sensation intact and equal all extremities and dermatomes, no pronator drift Chest: equal rise and fall of the chest, no accessory muscle use, no heaves or thrills, decreased in bases on 2LNC Cardiac: Regular rate and rhythm, telemetry reviewed- afib controlled rate, skin warm dry, cap refill <3 seconds, peripheral pulses +2 no JVD, +3 edema to arms and legs GI: solftly distended, tympany on percussion, mild tenderness to lower quad : Spontaneously voiding, no pain, no CVA tenderness, Psych: flat affect, but conversant and appropriate Skin: Multiple skin ulcerations/tears to sacrum and buttocks Results & Data Results & Data Vital Signs (Past 12 Hours) Vital Signs Temp Pulse Pulse Resp BP BP Pulse Ox 01/26/24 03:18 76 102/53 L 97 01/26/24 02:38 85 99 01/26/24 02:14 76 01/26/24 01:15 77 22 122/85 97 01/26/24 00:42 82 20 96 01/26/24 00:30 78 25 H 99 01/26/24 00:27 97 H 22 97 01/25/24 23:57 82 20 97 01/25/24 23:48 81 26 H 97 01/25/24 23:45 106/61 01/25/24 23:39 84 25 H 98 01/25/24 23:33 85 19 01/25/24 23:30 127/73 01/25/24 23:30 127/73 01/25/24 23:27 91 H 27 H 01/25/24 23:15 118/70 01/25/24 23:03 84 27 H 94 01/25/24 23:02 110/67 01/25/24 23:02 110/67 01/25/24 23:02 110/67 01/25/24 22:34 112/71 01/25/24 22:33 94 H 27 H 01/25/24 22:30 94 H 26 H 01/25/24 22:24 107 H 27 H 01/25/24 22:12 95 H 01/25/24 22:12 96 H 21 115/67 01/25/24 22:11 115/67 01/25/24 21:59 36.5 C O2 Flow Rate 01/26/24 03:18 2 01/26/24 02:38 01/26/24 02:14 01/26/24 01:15 2 01/26/24 00:42 01/26/24 00:30 01/26/24 00:27 01/25/24 23:57 01/25/24 23:48 01/25/24 23:45 01/25/24 23:39 01/25/24 23:33 01/25/24 23:30 01/25/24 23:30 01/25/24 23:27 01/25/24 23:15 01/25/24 23:03 01/25/24 23:02 01/25/24 23:02 01/25/24 23:02 01/25/24 22:34 01/25/24 22:33 01/25/24 22:30 01/25/24 22:24 01/25/24 22:12 01/25/24 22:12 01/25/24 22:11 01/25/24 21:59 Laboratory Results Abnormal lab results 01/25/24 01/25/24 01/25/24 Range/Units 23:13 23:17 23:39 WBC 11.24 H (4.8-10.8) K/ul RBC 2.59 L (4.20-5.40) M/uL Hgb 8.4 L (12.0-16.0) g/dl POC Hgb 8.8 L (12.0-16.0) g/dl Hct 25.0 L (37.0-47.0) % POC Hct 26 L (37-47) % RDW Std Deviation 51.3 H (36.4-46.3) fL RDW Coeff of Lorenzo 14.9 H (11.5-14.5) % Neut # (Auto) 9.18 H (1.40-6.50) K/uL [place] # (Auto) 0.68 H (0.11-0.59) K/uL PT 36.6 H (9.0-12.0) Seconds INR 3.8 H (0.9-1.1) POC Sodium 131 L (135-144) mmol/L POC Potassium 2.6 L (3.3-5.0) mmol/L Potassium 2.8 L (3.5-5.1) mmol/L POC Chloride 83 L (101-112) mmol/L Chloride 91 L (98-107) mmol/L Carbon Dioxide 37 H (21-32) mmol/L POC Total CO2 32 H (24-31) mmol/L POC BUN 23 H (7-18) mg/dl BUN 26 H (6-23) mg/dl Creatinine 0.44 L (0.6-1.2) mg/dl BUN/Creatinine Ratio 59.1 H (10-20) Glucose 105 H (70-99(Fasting)) mg/dl POC Glucose (other) 101 H (70-99) mg/dl Calcium 7.5 L (8.6-10.3) mg/dl POC Ioniz Calcium Rafa 0.98 L (1.12-1.32) mmol/l Magnesium 1.5 L (1.7-2.4) mg/dl Total Bilirubin 1.1 H (0.2-1.0) mg/dl Alkaline Phosphatase 153 H (34-104) U/L Troponin I High Sens 19.8 H (0-14) pg/ml B-Natriuretic Peptide 274 H (0-100) pg/ml Total Protein 4.9 L (6.0-8.3) gm/dl Albumin 2.6 L (3.4-5.0) gm/dl Globulin 2.3 L (2.5-4.0) gm/dl Lipase 3 L (11-82) U/L Procalcitonin 12.70 H (0-0.5) ng/ml TSH 5.388 H (0.300-4.500) uIu/ml Urine Ketones Trace H (Negative) Urine Nitrite Positive A (Negative) Ur Leukocyte Esterase Trace H (Negative) Urine RBC (Auto) 3-5 H (0-2) /hpf U Hyaline Cast (Auto) >20 H (0-2) /lpf Urine Bacteria (Auto) 4+ H (None Seen) Diagnostic Findings Chest X-Ray 01/25/24 22:35 EXAM: XR chest 1V portable CLINICAL HISTORY: TECHNIQUE: An X-ray image of the chest is obtained in AP poetable projection. COMPARISON: 12/31/2023. FINDINGS: The patient is rotated for a chest radiograph. Low lung volume could be due to poor inspiratory effort. Pulmonary Parenchyma: There is a suggestion of an interval decrease in the bilateral hilar vascular congestion and perihilar vascular markings. Probable minimal bilateral pleural effusion has also resolved with relatively sharp costophrenic angles on the current radiograph. No evidence of consolidation, collapse, or focal opacities. No pulmonary nodules are identified. Heart and Mediastinum: Borderline cardiomegaly. Mediastinal hilar shadows are normal. Bony Thorax: Degenerative changes are noted. The bony thorax appears intact without fractures or deformities. Soft Tissues: Soft tissues overlying the chest wall are unremarkable. IMPRESSION: 1. Stable borderline cardiomegaly. 2. Interval decrease in the bilateral hilar vascular congestion along with reduced perihilar vascular markings. 3. Probable minimal bilateral pleural effusion has also resolved with relatively sharp costophrenic angles on the current radiograph. Electronically signed by Alexis Loredo 01-26-2024 12:17 AM Abdomen/Pelvis CT 01/25/24 22:43 EXAM: CT abd pelvis IV con only CLINICAL HISTORY: weak, abd pain, n/v, hx sbo 92ml of 320 TECHNIQUE: Contiguous axial images were obtained from the level of the diaphragm to the pubic symphysis with intravenous contrast . Coronal and sagittal reconstructions were likewise performed and indicated to increase the sensitivity for detecting clinically relevant pathology. If IV contrast material had not been administered, the likelihood of detecting abnormalities relevant to the patient's condition would have been substantially decreased. CT scan was performed according to ALARA (as low as reasonable achievable). COMPARISON: 12/30/2023 13:37:18 FISH PROCESSING SUPERVISOR FINDINGS: The visualized lung bases demonstrates moderate bilateral pleural efusion with underlying atelectasis.Multiple patchy consolidations and ground glass opacifications in the visualized right middle,left upper and bilateral lower lobes along with atelectasis. The liver is normal in size with diffuse fatty infiltration.No focal liver lesions are seen. There is no intra or extrahepatic biliary ductal dilatation. Hepatic vasculature is patent. Post cholecystectomy status. The spleen, pancreas, and adrenal glands are unremarkable. The kidneys are normal in size and attenuation. Simple cortical right renal mid pole cyst asuring 2 x 1.8 cm.There is no hydronephrosis or perinephric fat stranding. No renal calculi or renal masses are identified. The ureters are normal in caliber and no ureteral calculi are seen. The bladder is normal in contour. Pelvic viscera are unremarkable. Gross ascites with diffuse mesentric edema. No focal or diffuse bowel wall thickening or evidence of bowel obstruction is identified. No inflamed appendix is visualized in the right lower quadrant . Abdominal and pelvic vasculature is patent. No adenopathy is seen. Moderate diffuse abdominal wall edema. No aggressive appearing osseous lesions are identified.Severe degnerative changes in the vertebra. IMPRESSION: 1. Visualized lung bases demonstrates moderate bilateral pleural efusion with underlying atelectasis.Multiple patchy consolidations and ground glass opacifications in the visualized right middle,left upper and bilateral lower lobes along with atelectasis.Correlate clinically. 2. Gross ascites with diffuse mesentric edema. 3. Diffuse fatty infiltration of liver. 4. Moderate diffuse abdominal wall edema. 5. On comparison with prior CT, there is significant interval increase in bilateral pleural effusion and ascites. Electronically signed by Javid Jha 01-26-2024 01:50 AM Medications Administered Magnesium Sulfate/Dextrose (Magnesium Sulfate / D5w) 1 gm in 100 mls @ 50 mls/hr IV Q2H SANJAY Stop: 01/26/24 06:14 Last Admin: 01/26/24 02:23 Dose: 50 mls/hr Documented By: MED Potassium Chloride (K Olegario / Wtr) 10 meq in 100 mls @ 100 mls/hr IV Q1H SANJAY; Protocol Stop: 01/26/24 04:14 Last Admin: 01/26/24 03:37 Dose: 100 mls/hr Documented By: JAngel Infusion: 01/26/24 03:23 Dose: Infused Documented By: Admin: 01/26/24 02:23 Dose: 100 mls/hr Documented By: MED Albumin Human (Albumin 25%) 25 gm in 100 mls @ 50 mls/hr IV Q2H SANJAY Stop: 01/26/24 06:14 Last Admin: 01/26/24 03:43 Dose: 50 mls/hr Documented By: JAngel Discontinued Medications Fentanyl Citrate (Fentanyl Citrate Pf 100 Mcg/2 Ml Vial) 50 mcg IV NOW STA Stop: 01/25/24 22:56 Last Admin: 01/25/24 23:43 Dose: 50 mcg Documented By: MED Sodium Chloride (Nss) 250 mls @ 999 mls/hr IV .Q16M ONE Stop: 01/25/24 22:59 Last Infusion: 01/26/24 02:43 Dose: Infused Documented By: student development coordinator: 01/25/24 22:53 Dose: 999 mls/hr Documented By: MED Piperacillin Sod/Tazobactam Sod (Zosyn) 4.5 gm in 100 mls @ 200 mls/hr IV NOW ONE; Protocol Stop: 01/26/24 00:36 Last Infusion: 01/26/24 02:43 Dose: Infused Documented By: student development coordinator: 01/26/24 00:19 Dose: 200 mls/hr Documented By: MED Famotidine (Pepcid 20mg Iv Push) 20 mg in 5 mls @ 2.5 mls/min IV NOW STA Stop: 01/26/24 02:21 Last Admin: 01/26/24 03:51 Dose: 2.5 mls/min Documented By: ANU Ioversol (Optiray 320 100ml) 91 ml IV ONCE ONE Stop: 01/26/24 00:11 Last Admin: 01/26/24 00:10 Dose: 91 ml Documented By: PRERNA Ondansetron HCl (Ondansetron Inj 2 Mg/Ml 2 Ml Vial) 4 mg IV NOW STA Stop: 01/25/24 22:56 Last Admin: 01/25/24 23:03 Dose: 4 mg Documented By: CLARIBEL Coding Level of Care Code 33687 IN/OBS CONSULT LVL 4,60M Diagnoses Electrolyte disturbance E87.8 Poor intravenous access Z78.9 Abdominal pain R10.84 Abdominal location: generalized Acute UTI N39.0 Anasarca R60.1 Atrial fibrillation I48.91 Elevated INR R79.1 Bilateral leg weakness R29.898 Generalized weakness R53.1 (3) Abdominal pain Abdominal location: generalized Qualified Code(s): R10.84 - Generalized abdominal pain
[2024-01-26] MEDS: ALBUMIN 25% 25 GM/100 ML VIAL IV SCH (03:43)
[2024-01-26] MEDS: FAMOTIDINE 20MG IV PUSH 20 MG/5 ML SYR IV STA (03:51)
[2024-01-26] MEDS: ONDANSETRON INJ 2 MG/ML 2 ML VIAL IV PRN (04:24)
[2024-01-26] MEDS: POTASSIUM CHLORIDE 20 MEQ/15 ML UDC PO STA (04:24)
[2024-01-26] MEDS: CALCIUM GLUCONATE 1,000 MG/60 ML BAG IV SCH (04:25)
[2024-01-26] MEDS ORDERED: METOCLOPRAMIDE HCL INJ 5 MG/ML 2 ML VIAL IV PRN (04:27)
[2024-01-26] MEDS ORDERED: POLYETHYLENE (MIRALAX) 17 GM PACK PO PRN (04:27)
[2024-01-26 04:59] LABS: Basophils # (auto) 0.01 K/uL (0.00-0.20); Basophils % (auto) 0.1 %; Hematocrit (blood only) 22.4 % (37.0-47.0); Hemoglobin 7.7 g/dl (12.0-16.0); Immature Granulocytes # (auto) 0.03 K/uL (0.01-0.20); Immature Granulocytes % (auto) 0.3 %; Lymphocytes # (auto) 1.33 K/uL (1.20-3.40); Lymphocytes % (auto) 13.1 %; Mean Corpuscular Hemoglobin 33.2 pg (25.0-34.0); Mean Corpuscular Hgb Conc 34.4 g/dL (32.0-36.0); Mean Corpuscular Volume 96.6 fL (80.0-100.0); Mean Platelet Volume 10.5 fL (9.4-12.4); Monocytes % (auto) 6.9 %; Neutrophils # (auto) 8.06 K/uL (1.40-6.50); Neutrophils % (auto) 79.6 %; Platelet Count 211 K/uL (130-400); RDW Standard Deviation 51.3 fL (36.4-46.3); Red Blood Count 2.32 M/uL (4.20-5.40); White Blood Count 10.13 K/ul (4.8-10.8)
[2024-01-26 05:05] LABS: Albumin Globulin Ratio 1.4 (0.9-2); Albumin Level 2.7 gm/dl (3.4-5.0); BUN Creatinine Ratio 58.5 (10-20); Bilirubin,Total 1.1 mg/dl (0.2-1.0); Calcium 7.4 mg/dl (8.6-10.3); Creatinine Clr Calc Pharmacy 125.9 ml/min; Phosphorus 3.4 mg/dl (2.5-4.9); Total Protein 4.7 gm/dl (6.0-8.3)
[2024-01-26 05:12] LABS: Troponin I High Sensitivity 21.8 pg/ml (0-14)
[2024-01-26 05:19] LABS: INR 3.4 (0.9-1.1)
[2024-01-26] MEDS: bisacodyL 10 MG SUPP PR STA (05:19)
[2024-01-26] MEDS: CEFEPIME 2000MG 2,000 MG/20 ML SYR IV SCH (05:19)
[2024-01-26 05:24] LABS: Target Cells 2+
--- NOTE | 2024-01-26 05:42 | Billing Data ---
Date of Service January 26, 2024 Coding Level of Care Code 70453 CRITICAL CARE
--- NOTE | 2024-01-26 07:13 | Hospitalist Progress Note ---
Date of Service January 26, 2024 Assessment & Plan (1) Acute on chronic respiratory failure with hypoxia: Plan: improving: satting in high 90s on 2L/min Secondary to fluid overload causing pleural effusions, anasarca and ascites, likely secondary to protein calorie malnutrition with hypoalbuminemia - continue diuresis with Lasix and spironolactone with I&O monitoring - continue BiPAP nightly - duonebs as needed (2) Multifocal pneumonia: Plan: Cefepime 2 g IV every 12 hours - DuoNebs every 2 hours as needed MRSA swab negative (3) Anemia: Plan: hemoglobin downtrendin.4 -> 7.4 - CBC in AM - consider transfusion if continues to drop - encourage PO meals and fluids (4) Urinary tract infection: Plan: 4+ bacteria, previous cx grew proteus - cultures pending - currently receiving cefepime IV for pneumonia (5) Pleural effusion: Plan: related to fluid overload state 2/2 chronic protein malabsorption - continue diuresis with Lasix and spironolactone with I&O monitoring (6) Elevated troponin: Plan: 19.8 -> 21.8 likely secondary to increased demand - EKG showing afib and old septal infarct from 2019 or earlier (7) Hypokalemia: Plan: 2.8 -> 3.0 - continue repleting (8) Hypomagnesemia: Plan: 1.5 - continue repleting (9) Anasarca: Plan: likely related to fluid overload state 2/2 chronic protein malabsorption - continue Lasix and spironolactone for diuresis with I&O monitoring (10) Hypoalbuminemia due to protein-calorie malnutrition: Plan: chronic malabsorption - IV albumin given in ED - consider advancing diet if continues to tolerate clear liquids (11) Ascites: Plan: likely 2/2 chronic protein malabsorption in combination with scleroderma - continue Lasix and spironolactone with I&O monitoring (12) Scleroderma: Plan: chronic - continue mycophenolate mofetil 500mg q12 Admission and Anticipated Discharge Date Admission Date: January 26, 2024 Supervising Physician Co-Signing Physician Notes ATTESTATION I also saw the patient and confirmed rizzo portions of the history and exam. I agree with the impression and plan in the resident documentation, and as summarized below. Patient is seen mid afternoon in the ICU. She is awake, eating jello. She answers questions initially, although has a soft voice and somewhat hard to hear and follow. I suspect this is her baseline. In reviewing records, there has been a progressive overall decline over the last few months. EXAM 134/76, 86, 20 Alert; oriented. Some confusion. CV irregularly irregular Lungs difficult to access, clear apices, decreased bases Abd with soft distention; Upper and lower extremity edema DATA Labs Repeat HgB 7.4 Sodium 134, Potassium, 4.6 BUN 20, Cr 0.36 Micro Urine culture pending IMPRESSION & PLAN Hypokalemia, resolved Hypomagnesemia Atrial Fibrillation, DOAC on hold given anticoagulation Anasarca Elevated INR Progressive weakness Hypoalbuminemia due to calorie-protein malnutrition Remains in ICU at ths time. Initially placed there due to concern of hemodynamics and electrolyte disturbances, although both improved. Continue BiPAP at night Continue Lasix/Aldactone Hold Xarelto given her INR Continue antibiotics pending culture Palliative consultation Additional per resident documentation Subjective Patient seen and evaluated at bedside in ICU, patient was alert and eating breakfast on encounter. States she was able to sleep a bit overnight, denies particular pain or discomfort. This morning, she is feeling "okay" denying any pain, but feels very week, particularly in her legs. Patient endorses generalized abdominal pain with nausea and vomiting for several days which made her go to ER from [facility]. Endorses longstanding history of protein malabsorption connected to her diagnosis of scleroderma. Also endorses history of interstitial lung disease, being on BiPAP nightly and that it helps improve her breathing. States she has been constipated but also has had diarrhea chronically. Denies recent fever, body aches, chills, sweats, dizziness, chest pain, numbness/tingling in extremities, pain in extremities. Review of Systems Review of Systems: per HPI Physical Exam Physical Exam: Constitutional: A&Ox4 (full name, , location, today's date), not appearing in acute distress HEENT: anicteric sclerae, EOM intact Cardiovascular: irregularly irregular rhythm, non-tachycardic; otherwise no m/r/g Respiratory: b/l scattered crackles, fair air entry b/l, no wheeze/rhonchi GI: abdomen soft, normo-hyperactive bowel sounds, diffusely tender to palpation Neuro: no facial droop, speech intact, CN II-XII grossly intact MSK: 5/5 strength in all extremities; diffuse swelling in extremities, shinier/tighter skin more appreciable in b/l LE, no tenderness with calf squeeze Results & Data Results & Data Vital Signs (Past 12 Hours) Vital Signs Temp Pulse Pulse Resp BP BP Pulse Ox 01/26/24 06:03 79 23 100 01/26/24 06:00 101/39 L 01/26/24 06:00 101/39 L 01/26/24 05:48 80 25 H 100 01/26/24 05:15 66 25 H 100 01/26/24 05:00 116/39 L 01/26/24 04:51 74 22 99 01/26/24 04:18 107/41 L 01/26/24 04:18 107/41 L 01/26/24 04:18 79 23 100 01/26/24 04:09 72 25 H 100 01/26/24 04:02 01/26/24 03:40 36.4 C L 78 24 114/72 100 01/26/24 03:35 114/72 01/26/24 03:34 01/26/24 03:18 76 102/53 L 97 01/26/24 03:14 81 24 97 01/26/24 03:02 74 20 98 01/26/24 03:01 102/53 L 01/26/24 03:01 102/53 L 01/26/24 02:50 77 25 H 99 01/26/24 02:45 143/66 H 01/26/24 02:45 143/66 H 01/26/24 02:45 143/66 H 01/26/24 02:45 143/66 H 01/26/24 02:45 143/66 H 01/26/24 02:44 78 22 97 01/26/24 02:38 85 99 01/26/24 02:31 115/57 L 01/26/24 02:15 140/60 01/26/24 02:14 76 01/26/24 02:11 76 25 H 97 01/26/24 02:00 86 26 H 99 01/26/24 02:00 131/96 01/26/24 02:00 131/96 01/26/24 01:45 109/66 01/26/24 01:45 109/66 01/26/24 01:45 109/66 01/26/24 01:45 85 19 96 01/26/24 01:31 112/51 L 01/26/24 01:18 90 24 95 01/26/24 01:18 122/85 01/26/24 01:18 122/85 01/26/24 01:18 122/85 01/26/24 01:16 111/46 L 01/26/24 01:16 111/46 L 01/26/24 01:15 76 21 01/26/24 01:15 77 22 122/85 97 01/26/24 01:00 80 24 99 01/26/24 01:00 102/63 01/26/24 00:42 82 20 96 01/26/24 00:30 78 25 H 99 01/26/24 00:27 97 H 22 97 01/25/24 23:57 82 20 97 01/25/24 23:48 81 26 H 97 01/25/24 23:45 106/61 01/25/24 23:39 84 25 H 98 01/25/24 23:33 85 19 01/25/24 23:30 127/73 01/25/24 23:30 127/73 01/25/24 23:27 91 H 27 H 01/25/24 23:15 118/70 01/25/24 23:03 84 27 H 94 01/25/24 23:02 110/67 01/25/24 23:02 110/67 01/25/24 23:02 110/67 01/25/24 22:34 112/71 01/25/24 22:33 94 H 27 H 01/25/24 22:30 94 H 26 H 01/25/24 22:24 107 H 27 H 01/25/24 22:12 95 H 01/25/24 22:12 96 H 21 115/67 01/25/24 22:11 115/67 01/25/24 21:59 36.5 C Pulse Ox O2 Del Method O2 Del Method O2 Flow Rate 01/26/24 06:03 01/26/24 06:00 01/26/24 06:00 01/26/24 05:48 01/26/24 05:15 01/26/24 05:00 01/26/24 04:51 01/26/24 04:18 01/26/24 04:18 01/26/24 04:18 01/26/24 04:09 01/26/24 04:02 Nasal Cannula 2 01/26/24 03:40 Nasal Cannula 2 01/26/24 03:35 01/26/24 03:34 2 L Nasal Cannula 01/26/24 03:18 2 01/26/24 03:14 01/26/24 03:02 01/26/24 03:01 01/26/24 03:01 01/26/24 02:50 01/26/24 02:45 01/26/24 02:45 01/26/24 02:45 01/26/24 02:45 01/26/24 02:45 01/26/24 02:44 01/26/24 02:38 01/26/24 02:31 01/26/24 02:15 01/26/24 02:14 01/26/24 02:11 01/26/24 02:00 01/26/24 02:00 01/26/24 02:00 01/26/24 01:45 01/26/24 01:45 01/26/24 01:45 01/26/24 01:45 01/26/24 01:31 01/26/24 01:18 01/26/24 01:18 01/26/24 01:18 01/26/24 01:18 01/26/24 01:16 01/26/24 01:16 01/26/24 01:15 01/26/24 01:15 2 01/26/24 01:00 01/26/24 01:00 01/26/24 00:42 01/26/24 00:30 01/26/24 00:27 01/25/24 23:57 01/25/24 23:48 01/25/24 23:45 01/25/24 23:39 01/25/24 23:33 01/25/24 23:30 01/25/24 23:30 01/25/24 23:27 01/25/24 23:15 01/25/24 23:03 01/25/24 23:02 01/25/24 23:02 01/25/24 23:02 01/25/24 22:34 01/25/24 22:33 01/25/24 22:30 01/25/24 22:24 01/25/24 22:12 01/25/24 22:12 01/25/24 22:11 01/25/24 21:59 Laboratory Results Abnormal lab results 01/25/24 01/25/24 01/25/24 Range/Units 23:13 23:17 23:39 WBC 11.24 H (4.8-10.8) K/ul RBC 2.59 L (4.20-5.40) M/uL Hgb 8.4 L (12.0-16.0) g/dl POC Hgb 8.8 L (12.0-16.0) g/dl Hct 25.0 L (37.0-47.0) % POC Hct 26 L (37-47) % RDW Std Deviation 51.3 H (36.4-46.3) fL RDW Coeff of Lorenzo 14.9 H (11.5-14.5) % Neut # (Auto) 9.18 H (1.40-6.50) K/uL [place] # (Auto) 0.68 H (0.11-0.59) K/uL PT 36.6 H (9.0-12.0) Seconds INR 3.8 H (0.9-1.1) POC Sodium 131 L (135-144) mmol/L Sodium (136-145) mmol/L POC Potassium 2.6 L (3.3-5.0) mmol/L Potassium 2.8 L (3.5-5.1) mmol/L POC Chloride 83 L (101-112) mmol/L Chloride 91 L (98-107) mmol/L Carbon Dioxide 37 H (21-32) mmol/L POC Total CO2 32 H (24-31) mmol/L POC BUN 23 H (7-18) mg/dl BUN 26 H (6-23) mg/dl Creatinine 0.44 L (0.6-1.2) mg/dl BUN/Creatinine Ratio 59.1 H (10-20) Glucose 105 H (70-99(Fasting)) mg/dl POC Glucose (70-99) mg/dl POC Glucose (other) 101 H (70-99) mg/dl Calcium 7.5 L (8.6-10.3) mg/dl POC Ioniz Calcium Rafa 0.98 L (1.12-1.32) mmol/l Magnesium 1.5 L (1.7-2.4) mg/dl Total Bilirubin 1.1 H (0.2-1.0) mg/dl Alkaline Phosphatase 153 H (34-104) U/L Troponin I High Sens 19.8 H (0-14) pg/ml B-Natriuretic Peptide 274 H (0-100) pg/ml Total Protein 4.9 L (6.0-8.3) gm/dl Albumin 2.6 L (3.4-5.0) gm/dl Globulin 2.3 L (2.5-4.0) gm/dl Lipase 3 L (11-82) U/L Procalcitonin 12.70 H (0-0.5) ng/ml TSH 5.388 H (0.300-4.500) uIu/ml Urine Ketones Trace H (Negative) Urine Nitrite Positive A (Negative) Ur Leukocyte Esterase Trace H (Negative) Urine RBC (Auto) 3-5 H (0-2) /hpf U Hyaline Cast (Auto) >20 H (0-2) /lpf Urine Bacteria (Auto) 4+ H (None Seen) Stl C. diff Tox B Gene (Neg) 01/26/24 01/26/24 01/26/24 Range/Units 04:27 09:20 11:20 WBC (4.8-10.8) K/ul RBC 2.32 L (4.20-5.40) M/uL Hgb 7.7 L (12.0-16.0) g/dl POC Hgb (12.0-16.0) g/dl Hct 22.4 L (37.0-47.0) % POC Hct (37-47) % RDW Std Deviation 51.3 H (36.4-46.3) fL RDW Coeff of Lorenzo 15.0 H (11.5-14.5) % Neut # (Auto) 8.06 H (1.40-6.50) K/uL [place] # (Auto) 0.70 H (0.11-0.59) K/uL PT 33.0 H (9.0-12.0) Seconds INR 3.4 H (0.9-1.1) POC Sodium (135-144) mmol/L Sodium 133 L (136-145) mmol/L POC Potassium (3.3-5.0) mmol/L Potassium 3.0 L (3.5-5.1) mmol/L POC Chloride (101-112) mmol/L Chloride 89 L (98-107) mmol/L Carbon Dioxide 38 H (21-32) mmol/L POC Total CO2 (24-31) mmol/L POC BUN (7-18) mg/dl BUN 24 H (6-23) mg/dl Creatinine 0.41 L (0.6-1.2) mg/dl BUN/Creatinine Ratio 58.5 H (10-20) Glucose 104 H (70-99(Fasting)) mg/dl POC Glucose 106 H (70-99) mg/dl POC Glucose (other) (70-99) mg/dl Calcium 7.4 L (8.6-10.3) mg/dl POC Ioniz Calcium Rafa (1.12-1.32) mmol/l Magnesium (1.7-2.4) mg/dl Total Bilirubin 1.1 H (0.2-1.0) mg/dl Alkaline Phosphatase 131 H (34-104) U/L Troponin I High Sens 21.8 H (0-14) pg/ml B-Natriuretic Peptide (0-100) pg/ml Total Protein 4.7 L (6.0-8.3) gm/dl Albumin 2.7 L (3.4-5.0) gm/dl Globulin 2.0 L (2.5-4.0) gm/dl Lipase (11-82) U/L Procalcitonin (0-0.5) ng/ml TSH (0.300-4.500) uIu/ml Urine Ketones (Negative) Urine Nitrite (Negative) Ur Leukocyte Esterase (Negative) Urine RBC (Auto) (0-2) /hpf U Hyaline Cast (Auto) (0-2) /lpf Urine Bacteria (Auto) (None Seen) Stl C. diff Tox B Gene Positive Cdiff Gene H (Neg) Resident Activity Tracking Resident Involvement: Resident Care Provided Care Provided: Adult Hospital Medicine (3) Anemia Anemia type: unspecified type Qualified Code(s): D64.9 - Anemia, unspecified (4) Urinary tract infection Hematuria presence: without hematuria Urinary tract infection type: site unspecified Qualified Code(s): N39.0 - Urinary tract infection, site not specified
[2024-01-26] MEDS: DOCUSATE SODIUM/SENNA 50/8.6MG TAB PO SCH (08:31)
[2024-01-26] MEDS: MULTIVITAMIN TAB PO SCH (08:31)
[2024-01-26] MEDS: MYCOPHENOLATE MOFETIL 250 MG CAP PO SCH (09:13)
[2024-01-26] MEDS: FAMOTIDINE 20MG IV PUSH 20 MG/5 ML SYR IV SCH (09:13)
[2024-01-26] MEDS: POTASSIUM CHLORIDE 20 MEQ/15 ML UDC PO SCH (09:15)
[2024-01-26] MEDS: MAGNESIUM OXIDE 400 MG TAB PO SCH (09:15)
[2024-01-26] MEDS: POLYETHYLENE (MIRALAX) 17 GM PACK PO PRN (09:15)
[2024-01-26] MEDS: SPIRONOLACTONE 25 MG TAB PO SCH (09:20)
[2024-01-26] MEDS: FUROSEMIDE 40 MG TAB PO SCH (09:20)
[2024-01-26 10:54] LABS: Adenovirus F 40/41 PCR Not Detected (NotDetected); Astrovirus PCR Not Detected (NotDetected); Campylobacter PCR Not Detected (NotDetected); Cryptosporidium PCR Not Detected (NotDetected); Cyclospora cayetanensis PCR Not Detected (NotDetected); Entamoeba histolytica PCR Not Detected (NotDetected); Enteroaggregative E.coli(EAEC) Not Detected (NotDetected); Enteropathogenic E.coli (EPEC) Not Detected (NotDetected); Enterotoxigenic E.coli (ETEC) Not Detected (NotDetected); Giardia lamblia PCR Not Detected (NotDetected); Norovirus GI/GII PCR Not Detected (NotDetected); Plesiomonas shigelloides PCR Not Detected (NotDetected); Rotavirus A PCR Not Detected (NotDetected); Salmonella PCR Not Detected (NotDetected); Sapovirus PCR Not Detected (NotDetected); Shiga-like Toxin E.coli (STEC) Not Detected (NotDetected); Shigella/Enteroinvasive E.coli Not Detected (NotDetected); Vibrio cholerae PCR Not Detected (NotDetected); Vibrio species PCR Not Detected (NotDetected); Yersinia enterocolitica PCR Not Detected (NotDetected)
[2024-01-26] MEDS: CALCIUM CARBONATE 1,250 MG/5 ML UDC PO SCH (11:04)
--- NOTE | 2024-01-26 11:49 | Electrocardiogram Report ---
Test Reason : Blood Pressure : */* mmHG Vent. Rate : 87 BPM Atrial Rate : * BPM P-R Int : * ms QRS Dur : 90 ms QT Int : 334 ms P-R-T Axes : * 34 58 degrees QTcB Int : 401 ms Atrial fibrillation Low voltage QRS Septal infarct (cited on or before 23-Feb-2019) Abnormal ECG When compared with ECG of 31-Dec-2023 17:41, No significant change Confirmed by Power Bethea [id number] on 01/26/2024 11:49:06 AM Referred By: REFERRED SELF Confirmed By: Power Bethea
[2024-01-26 12:41] LABS: Cdiff Toxin B Gene (2yr or >) Positive Cdiff Gene (Neg)
[2024-01-26 12:42] LABS: Cdiff Antigen Positive; Cdiff Toxin A+B Negative Cdiff Toxin (Negative)
[2024-01-26 17:37] LABS: Basophils # (auto) 0.02 K/uL (0.00-0.20); Basophils % (auto) 0.2 %; Eosinophils # (auto) 0.07 K/uL (0.00-0.50); Eosinophils % (auto) 0.6 %; Hematocrit (blood only) 21.2 % (37.0-47.0); Hemoglobin 7.4 g/dl (12.0-16.0); Immature Granulocytes # (auto) 0.07 K/uL (0.01-0.20); Immature Granulocytes % (auto) 0.6 %; Lymphocytes # (auto) 1.88 K/uL (1.20-3.40); Lymphocytes % (auto) 16.2 %; Mean Corpuscular Hemoglobin 33.6 pg (25.0-34.0); Mean Corpuscular Hgb Conc 34.9 g/dL (32.0-36.0); Mean Corpuscular Volume 96.4 fL (80.0-100.0); Mean Platelet Volume 11.3 fL (9.4-12.4); Monocytes % (auto) 6.9 %; Neutrophils # (auto) 8.75 K/uL (1.40-6.50); Neutrophils % (auto) 75.5 %; Platelet Count 134 K/uL (130-400); RDW Coefficient of Variation 15.1 % (11.5-14.5); RDW Standard Deviation 51.4 fL (36.4-46.3); White Blood Count 11.59 K/ul (4.8-10.8)
[2024-01-26 18:02] LABS: BUN Creatinine Ratio 55.6 (10-20); Calcium 8.1 mg/dl (8.6-10.3); Creatinine Clr Calc Pharmacy 143.4 ml/min; Potassium 4.6 mmol/L (3.5-5.1)
[2024-01-26 18:13] LABS: Target Cells 2+
[2024-01-27 05:15] LABS: Hematocrit (blood only) 27.2 % (37.0-47.0); Hemoglobin 9.1 g/dl (12.0-16.0); Mean Corpuscular Hemoglobin 32.6 pg (25.0-34.0); Mean Corpuscular Hgb Conc 33.5 g/dL (32.0-36.0); Mean Corpuscular Volume 97.5 fL (80.0-100.0); Mean Platelet Volume 10.7 fL (9.4-12.4); Platelet Count 165 K/uL (130-400); RDW Coefficient of Variation 15.5 % (11.5-14.5); RDW Standard Deviation 53.7 fL (36.4-46.3); Red Blood Count 2.79 M/uL (4.20-5.40); White Blood Count 8.55 K/ul (4.8-10.8)
[2024-01-27 05:21] LABS: Basophils # (auto) 0.01 K/uL (0.00-0.20); Basophils % (auto) 0.1 %; Eosinophils # (auto) 0.04 K/uL (0.00-0.50); Eosinophils % (auto) 0.5 %; Immature Granulocytes # (auto) 0.03 K/uL (0.01-0.20); Immature Granulocytes % (auto) 0.4 %; Lymphocytes # (auto) 1.45 K/uL (1.20-3.40); Lymphocytes % (auto) 17.2 %; Monocytes # (auto) 0.44 K/uL (0.11-0.59); Monocytes % (auto) 5.2 %; Neutrophils # (auto) 6.47 K/uL (1.40-6.50); Neutrophils % (auto) 76.6 %
[2024-01-27 05:32] LABS: Albumin Level 3.2 gm/dl (3.4-5.0); Bilirubin,Total 1.3 mg/dl (0.2-1.0); Calcium 8.3 mg/dl (8.6-10.3); Potassium 4.9 mmol/L (3.5-5.1)
[2024-01-27 05:38] LABS: Albumin Globulin Ratio 1.5 (0.9-2); BUN Creatinine Ratio 58.6 (10-20); Globulin 2.1 gm/dl (2.5-4.0); Phosphorus 3.1 mg/dl (2.5-4.9); Total Protein 5.3 gm/dl (6.0-8.3)
[2024-01-27 05:52] LABS: INR 1.7 (0.9-1.1); Partial Thromboplastin Ratio 1.1; Partial Thromboplastin Time 30 Seconds (21-31)
--- NOTE | 2024-01-27 07:21 | Critical Care Progress Note ---
Date of Service January 27, 2024 Assessment & Plan (1) Electrolyte disturbance: (2) Poor intravenous access: (3) Abdominal pain: (4) Acute UTI: (5) Anasarca: (6) Atrial fibrillation: (7) Elevated INR: (8) Bilateral leg weakness: (9) Generalized weakness: Plan Reason Critically Ill: 68 YOF presents to hospital for acute on chronic weakness and fatigue- noted withmultiple electroltye disturbances, anasarca, poor IV access. To ICU for electorlyte replacement as K 2.8, MG 1.5, iCA 0.98, and INR of 3.8. Replete electrolytes and obtain access if needed. 24-hour events: Patient underwent aggressive electrolyte replacement strategy was started on diuretics. She tolerated BiPAP at night. She is doing well clinically. Recommendations Neuro -profoundly weak and deconditioned. Continue physical therapy and Occupational Therapy. Out of bed to chair as tolerated. Cardiac - Afib on chronic anticoagulation, Coumadin subtherapeutic. Dosing per primary service. Patient is currently adequately rate controlled. Continue with Lasix and Aldactone Respiratory - ILD, Hypoxic respiratory failure, hx of sleep disordered breathing. Tolerating BiPAP at night. Continue to wean oxygen as tolerated. Continue CellCept for interstitial lung disease. GI - gastroparesis with constipation , acute on chronic nausea, hypoalbuminemia. Advancing diet as tolerated. Continue bowel regimen RENAL/LYTES -repleted electrolytes. Continue to follow. -urine culture pending. Continue cefepime pending culture data. 3-day should be adequate ENDO - No acute needs HEME -anticoagulation can be reinitiated. Patient is anemic with no evidence of acute blood loss. No indication for transfusion currently. ID -multiple potential sources. Cultures negative to date.. #3 empiric cefepime. White count normal and afebrile. LINES/IV ACCESS - PIV x2 Continue use of these lines- DVT PROPHYLAXIS - SCDS DISPO: Critical care issues resolved. She can transfer to the floor. Critical care will sign off. Feel free to contact us with questions or concerns Admission and Anticipated Discharge Date Admission Date: January 26, 2024 Subjective Patient seen and examined. And reviewed. Discussed with critical care nurse at bedside and close with patient. Patient reports she is doing well. She has BiPAP last night for like she slept well. Her breathing is much better today. Her electrolytes have been repleted. She not having any chest pain or palpitations. Shortness of breath appears to be back to baseline. She is eating but would like her diet liberalized. She is anxious to start working with therapy again Review of Systems Review of Systems: All systems reviewed & are unremarkable except as noted in Subjective Physical Exam Constitutional: WD/WN, vitals as above Neck: trachea midline, no thyromegaly Respiratory: no respiratory distress, no labored breathing, no cough and not tachypneic Auscultation: + crackles; no wheezes Cardiovascular: Rate/Rhythm: + tachycardic Heart Sounds: normal S1, normal S2 and + murmur Extremities: + edema Gastrointestinal (Abdomen): normal bowel sounds, soft, nontender, no hepatosplenomegaly Musculoskeletal: Extremities: extremities normal to inspection Lymphatic: no cervical lymphadenopathy Results & Data Results & Data Vital Signs (Past 12 Hours) Vital Signs Temp Pulse Resp BP Pulse Ox Pulse Ox O2 Del Method 01/27/24 06:06 84 29 H 87 L 01/27/24 06:00 99/50 L 01/27/24 05:42 92 H 26 H 92 01/27/24 05:00 100/64 01/27/24 05:00 100/64 01/27/24 05:00 100/64 01/27/24 05:00 89 25 H 99 01/27/24 04:00 84/45 L 01/27/24 04:00 84/45 L 01/27/24 04:00 84/45 L 01/27/24 04:00 84/45 L 01/27/24 04:00 84/45 L 01/27/24 04:00 114 H 25 H 96 01/27/24 04:00 36.9 C 01/27/24 04:00 99 01/27/24 03:42 90 26 H 97 01/27/24 03:03 83 23 94 01/27/24 03:02 152/58 H 01/27/24 03:02 152/58 H 01/27/24 02:39 74 22 100 01/27/24 02:15 75 22 99 01/27/24 02:01 143/54 H 01/27/24 01:51 69 16 98 01/27/24 01:00 69 12 99 01/27/24 00:03 67 10 L 99 01/27/24 00:01 139/26 L 01/27/24 00:01 139/26 L 01/27/24 00:00 75 27 H 98 01/27/24 00:00 97 01/27/24 00:00 36.7 C 01/27/24 00:00 73 01/26/24 23:32 69 17 99 01/26/24 23:03 70 20 100 01/26/24 23:00 112/71 01/26/24 22:57 70 22 100 01/26/24 22:03 86 33 H 91 01/26/24 22:01 84/46 L 01/26/24 22:01 84/46 L 01/26/24 22:01 84/46 L 01/26/24 22:01 84/46 L 01/26/24 21:54 80 22 99 01/26/24 21:20 113/57 L 01/26/24 21:12 76 21 84 L 01/26/24 21:00 92 01/26/24 20:10 100/47 L 01/26/24 20:00 70 19 100 01/26/24 20:00 36.9 C 01/26/24 20:00 97 01/26/24 20:00 Nasal Cannula O2 Del Method O2 Flow Rate O2 Flow Rate 01/27/24 06:06 01/27/24 06:00 01/27/24 05:42 01/27/24 05:00 01/27/24 05:00 01/27/24 05:00 01/27/24 05:00 01/27/24 04:00 01/27/24 04:00 01/27/24 04:00 01/27/24 04:00 01/27/24 04:00 01/27/24 04:00 01/27/24 04:00 01/27/24 04:00 BiPAP 2 01/27/24 03:42 2 01/27/24 03:03 01/27/24 03:02 01/27/24 03:02 01/27/24 02:39 01/27/24 02:15 01/27/24 02:01 01/27/24 01:51 01/27/24 01:00 01/27/24 00:03 01/27/24 00:01 01/27/24 00:01 01/27/24 00:00 01/27/24 00:00 BiPAP 2 01/27/24 00:00 01/27/24 00:00 01/26/24 23:32 2 01/26/24 23:03 01/26/24 23:00 01/26/24 22:57 01/26/24 22:03 01/26/24 22:01 01/26/24 22:01 01/26/24 22:01 01/26/24 22:01 01/26/24 21:54 01/26/24 21:20 01/26/24 21:12 01/26/24 21:00 01/26/24 20:10 01/26/24 20:00 01/26/24 20:00 01/26/24 20:00 Nasal Cannula 2 01/26/24 20:00 2 Critical Care Results & Data Vital Signs (Past 12 Hours) Vital Signs Temp Pulse Resp BP Pulse Ox Pulse Ox O2 Del Method 01/27/24 06:06 84 29 H 87 L 01/27/24 06:00 99/50 L 01/27/24 05:42 92 H 26 H 92 01/27/24 05:00 100/64 01/27/24 05:00 100/64 01/27/24 05:00 100/64 01/27/24 05:00 89 25 H 99 01/27/24 04:00 84/45 L 01/27/24 04:00 84/45 L 01/27/24 04:00 84/45 L 01/27/24 04:00 84/45 L 01/27/24 04:00 84/45 L 01/27/24 04:00 114 H 25 H 96 01/27/24 04:00 36.9 C 01/27/24 04:00 99 01/27/24 03:42 90 26 H 97 01/27/24 03:03 83 23 94 01/27/24 03:02 152/58 H 01/27/24 03:02 152/58 H 01/27/24 02:39 74 22 100 01/27/24 02:15 75 22 99 01/27/24 02:01 143/54 H 01/27/24 01:51 69 16 98 01/27/24 01:00 69 12 99 01/27/24 00:03 67 10 L 99 01/27/24 00:01 139/26 L 01/27/24 00:01 139/26 L 01/27/24 00:00 75 27 H 98 01/27/24 00:00 97 01/27/24 00:00 36.7 C 01/27/24 00:00 73 01/26/24 23:32 69 17 99 01/26/24 23:03 70 20 100 01/26/24 23:00 112/71 01/26/24 22:57 70 22 100 01/26/24 22:03 86 33 H 91 01/26/24 22:01 84/46 L 01/26/24 22:01 84/46 L 01/26/24 22:01 84/46 L 01/26/24 22:01 84/46 L 01/26/24 21:54 80 22 99 01/26/24 21:20 113/57 L 01/26/24 21:12 76 21 84 L 01/26/24 21:00 92 01/26/24 20:10 100/47 L 01/26/24 20:00 70 19 100 01/26/24 20:00 36.9 C 01/26/24 20:00 97 01/26/24 20:00 Nasal Cannula O2 Del Method O2 Flow Rate O2 Flow Rate 01/27/24 06:06 01/27/24 06:00 01/27/24 05:42 01/27/24 05:00 01/27/24 05:00 01/27/24 05:00 01/27/24 05:00 01/27/24 04:00 01/27/24 04:00 01/27/24 04:00 01/27/24 04:00 01/27/24 04:00 01/27/24 04:00 01/27/24 04:00 01/27/24 04:00 BiPAP 2 01/27/24 03:42 2 01/27/24 03:03 01/27/24 03:02 01/27/24 03:02 01/27/24 02:39 01/27/24 02:15 01/27/24 02:01 01/27/24 01:51 01/27/24 01:00 01/27/24 00:03 01/27/24 00:01 01/27/24 00:01 01/27/24 00:00 01/27/24 00:00 BiPAP 2 01/27/24 00:00 01/27/24 00:00 01/26/24 23:32 2 01/26/24 23:03 01/26/24 23:00 01/26/24 22:57 01/26/24 22:03 01/26/24 22:01 01/26/24 22:01 01/26/24 22:01 01/26/24 22:01 01/26/24 21:54 01/26/24 21:20 01/26/24 21:12 01/26/24 21:00 01/26/24 20:10 01/26/24 20:00 01/26/24 20:00 01/26/24 20:00 Nasal Cannula 2 01/26/24 20:00 2 Lab & Micro Results (Past 24 Hours) RBC 2.79 M/uL (4.20-5.40) L 01/27/24 WBC 8.55 K/ul (4.8-10.8) 01/27/24 Hgb 9.1 g/dl (12.0-16.0) L 01/27/24 Hct 27.2 % (37.0-47.0) L 01/27/24 MCV 97.5 fL (80.0-100.0) 01/27/24 MCH 32.6 pg (25.0-34.0) 01/27/24 MCHC 33.5 g/dL (32.0-36.0) 01/27/24 RDW Standard Deviation 53.7 fL (36.4-46.3) H 01/27/24 RDW Coefficient of Variation 15.5 % (11.5-14.5) H 01/27/24 Plt Count 165 K/uL (130-400) 01/27/24 MPV 10.7 fL (9.4-12.4) 01/27/24 Neutrophils (%) (Auto) 76.6 % 01/27/24 Lymphocytes (%) (Auto) 17.2 % 01/27/24 Monocytes # (Auto) 0.44 K/uL (0.11-0.59) 01/27/24 Eosinophils # (Auto) 0.04 K/uL (0.00-0.50) 01/27/24 Immature Granulocyte % (Auto) 0.4 % 01/27/24 Neutrophils # (Auto) 6.47 K/uL (1.40-6.50) 01/27/24 Lymphocytes # (Auto) 1.45 K/uL (1.20-3.40) 01/27/24 Monocytes # (Auto) 0.44 K/uL (0.11-0.59) 01/27/24 Eosinophils # (Auto) 0.04 K/uL (0.00-0.50) 01/27/24 Basophils # (Auto) 0.01 K/uL (0.00-0.20) 01/27/24 Immature Granulocyte # (Auto) 0.03 K/uL (0.01-0.20) 4 Target Cells 2+ 01/26/24 Na 135 mmol/L (136-145) L 01/27/24 K 4.9 mmol/L (3.5-5.1) 01/27/24 Cl 94 mmol/L (98-107) L 01/27/24 CO2 37 mmol/L (21-32) H 01/27/24 Anion Gap 4 (3-11) 01/27/24 BUN 17 mg/dl (6-23) 01/27/24 Creatinine 0.29 mg/dl (0.6-1.2) L 01/27/24 BUN/Creatinine Ratio 58.6 (10-20) H 01/27/24 Glu 69 mg/dl (70-99(Fasting)) L 01/27/24 Ca 8.3 mg/dl (8.6-10.3) L 01/27/24 Phosphorus Level 3.1 mg/dl (2.5-4.9) 01/27/24 Total Bilirubin 1.3 mg/dl (0.2-1.0) H 01/27/24 AST 24 U/L (13-39) 01/27/24 ALT 32 U/L (7-52) 01/27/24 Alkaline Phosphatase 119 U/L (34-104) H 01/27/24 TP 5.3 gm/dl (6.0-8.3) L 01/27/24 Albumin 3.2 gm/dl (3.4-5.0) L 01/27/24 Globulin 2.1 gm/dl (2.5-4.0) L 01/27/24 Albumin/Globulin Ratio 1.5 (0.9-2) 01/27/24 Mg 2.0 mg/dl (1.7-2.4) 01/27/24 04:23 Calcium Level 8.3 mg/dl (8.6-10.3) L 01/27/24 04:23 Prothromb Time International Ratio 1.7 (0.9-1.1) H 01/27/24 04 :40 I & O Totals 24 Hours 01/26/24 01/27/24 01/28/24 06:59 06:59 06:59 Intake Total 1078 / 1078 1540 / 1540 Output Total 0 / 0 701 / 701 Balance 1078 / 1078 839 / 839 Cumulative 01/25/24 21:59 thru 01/27/24 06:30 Intake Total 2618 Output Total 701 Balance 1917 RT Ventilator Mngmt (Last Documented) Ventilator Ordered Settings Respiratory Rate 29 01/27/24 06:06 Ventilator - PT Measurements Respiratory Rate 29 Coding Level of Care Code 11387 SUB INP/OBS CARE 3/50MIN Diagnoses Electrolyte disturbance E87.8 Poor intravenous access Z78.9 Abdominal pain R10.84 Abdominal location: generalized Acute UTI N39.0 Anasarca R60.1 Atrial fibrillation I48.91 Elevated INR R79.1 Bilateral leg weakness R29.898 Generalized weakness R53.1 (3) Abdominal pain Abdominal location: generalized Qualified Code(s): R10.84 - Generalized abdominal pain
--- NOTE | 2024-01-27 07:34 | Hospitalist Progress Note ---
Date of Service January 27, 2024 Assessment & Plan (1) Acute on chronic respiratory failure with hypoxia: Plan: Secondary to fluid overload causing pleural effusions, anasarca and ascites, likely secondary to protein calorie malnutrition with hypoalbuminemia - satting low-mid 90s on 2L/min O2 via NC - continue diuresis with Lasix and spironolactone with I&O monitoring - continue BiPAP nightly - duonebs as needed Per Dr. Miller, patient stable to transfer out of ICU - PT to evaluate and treat - palliative consult ordered, medicine team can discuss with patient until palliative comes on Tuesday01/30/24 (2) Generalized weakness: Plan: chronic weakness, particularly in b/l LE - PT to evaluate and treat - palliative consult ordered, medicine team can discuss with patient until palliative comes on Tuesday01/30/24 (3) Multifocal pneumonia: Plan: Cefepime 2 g IV every 12 hours - DuoNebs every 2 hours as needed - white count has resolved MRSA swab negative (4) Anemia: Plan: hemoglobin uptrendin.4 -> 9.1 - CBC in AM - encourage PO meals and fluids (5) Pleural effusion: Plan: related to fluid overload state 2/2 chronic protein malabsorption - continue diuresis with Lasix and spironolactone with I&O monitoring - duonebs as needed (6) Elevated troponin: Plan: 19.8 -> 21.8 likely secondary to increased demand - EKG showing afib and old septal infarct from 2019 or earlier (7) Hypokalemia: Plan: resolved, overshot: 3 -> 4.9 -hold repletion (8) Hypomagnesemia: Plan: resolved, 1.5 -> 2.0 - may hold repletion (9) Anasarca: Plan: likely related to fluid overload state 2/2 chronic protein malabsorption - continue Lasix and spironolactone for diuresis with I&O monitoring - consider IV albumin as pt has ptein malabsorption (10) Hypoalbuminemia due to protein-calorie malnutrition: Plan: chronic malabsorption - IV albumin given in ED - consider advancing diet if continues to tolerate clear liquids - consider IV albumin as pt has ptein malabsorption (11) Ascites: Plan: likely 2/2 chronic protein malabsorption in combination with scleroderma - continue Lasix and spironolactone with I&O monitoring - consider IV albumin as pt has ptein malabsorption (12) Scleroderma: Plan: chronic - continue mycophenolate mofetil 500mg q12 Plan Stable to be transferred out of ICU PT to evaluate and treat Palliative consult ordered, medicine team to cover starting 01/27/24 Admission and Anticipated Discharge Date Admission Date: January 26, 2024 Supervising Physician Co-Signing Physician Notes I personally examined the patient and verified rizzo points of history and exam, discussed case, and agree with decision making and plan documented by Dr. Alegre. Patient conversant and resting comfortably on exam. She reported eating all of her dinner. She remains on cefepime for multifocal pneumonia in addition to DuoNebs. Will continue to engage patient in goals of care conversation prior to palliative consult on Tuesday. Subjective Patient seen and evaluated at bedside in ICU, patient was alert and fully oriented on encounter. States she was able to sleep a bit overnight, denies particular pain or discomfort. States her BiPAP came off and she tried to get it back on, but couldn't so she removed part of it to get a nurse to come in. This morning, she is feeling "okay" denying any pain, but still feels week particularly in her legs. Denies any abdominal pain at this time but does endorse some pain on her buttocks from sitting so long. States she has been up to urinate without issue, endorses having a bowel movement overnight with no issues. Has been able to eat and drink well. Today pt endorses new L inferomedial knee pain when she bends it, denies any trauma or prior similar knee pain. Denies recent fever, body aches, chills, sweats, dizziness, chest pain, numbness/tingling in extremities, pain in extremities. Review of Systems Review of Systems: per HPI Physical Exam 2 Physical Exam: Constitutional: A&Ox4 (full name, , location, today's date), not appearing in acute distress HEENT: anicteric sclerae, EOM intact Cardiovascular: irregularly irregular rhythm, non-tachycardic; otherwise no m/r/g Respiratory: b/l inspiratory scattered crackles L>R, fair air entry b/l, no wheeze/rhonchi GI: abdomen soft, normo-hyperactive bowel sounds, diffusely tender to palpation Neuro: no facial droop, speech intact, CN II-XII grossly intact MSK: 5/5 strength in all extremities; diffuse swelling in extremities, shinier/tighter skin more appreciable in b/l LE, no tenderness with calf squeeze - L inferolateral knee mild tenderness t o palpation with with L knee flexion, visually unremarkable Results & Data Results & Data Vital Signs (Past 12 Hours) Vital Signs Temp Pulse Resp BP Pulse Ox Pulse Ox O2 Del Method 01/27/24 06:06 84 29 H 87 L 01/27/24 06:00 99/50 L 01/27/24 05:42 92 H 26 H 92 01/27/24 05:00 100/64 01/27/24 05:00 100/64 01/27/24 05:00 100/64 01/27/24 05:00 89 25 H 99 01/27/24 04:00 84/45 L 01/27/24 04:00 84/45 L 01/27/24 04:00 84/45 L 01/27/24 04:00 84/45 L 01/27/24 04:00 84/45 L 01/27/24 04:00 114 H 25 H 96 01/27/24 04:00 36.9 C 01/27/24 04:00 99 01/27/24 03:42 90 26 H 97 01/27/24 03:03 83 23 94 01/27/24 03:02 152/58 H 01/27/24 03:02 152/58 H 01/27/24 02:39 74 22 100 01/27/24 02:15 75 22 99 01/27/24 02:01 143/54 H 01/27/24 01:51 69 16 98 01/27/24 01:00 69 12 99 01/27/24 00:03 67 10 L 99 01/27/24 00:01 139/26 L 01/27/24 00:01 139/26 L 01/27/24 00:00 75 27 H 98 01/27/24 00:00 97 01/27/24 00:00 36.7 C 01/27/24 00:00 73 01/26/24 23:32 69 17 99 01/26/24 23:03 70 20 100 01/26/24 23:00 112/71 01/26/24 22:57 70 22 100 01/26/24 22:03 86 33 H 91 01/26/24 22:01 84/46 L 01/26/24 22:01 84/46 L 01/26/24 22:01 84/46 L 01/26/24 22:01 84/46 L 01/26/24 21:54 80 22 99 01/26/24 21:20 113/57 L 01/26/24 21:12 76 21 84 L 01/26/24 21:00 92 01/26/24 20:10 100/47 L 01/26/24 20:00 70 19 100 01/26/24 20:00 36.9 C 01/26/24 20:00 97 01/26/24 20:00 Nasal Cannula O2 Del Method O2 Flow Rate O2 Flow Rate 01/27/24 06:06 01/27/24 06:00 01/27/24 05:42 01/27/24 05:00 01/27/24 05:00 01/27/24 05:00 01/27/24 05:00 01/27/24 04:00 01/27/24 04:00 01/27/24 04:00 01/27/24 04:00 01/27/24 04:00 01/27/24 04:00 01/27/24 04:00 01/27/24 04:00 BiPAP 2 01/27/24 03:42 2 01/27/24 03:03 01/27/24 03:02 01/27/24 03:02 01/27/24 02:39 01/27/24 02:15 01/27/24 02:01 01/27/24 01:51 01/27/24 01:00 01/27/24 00:03 01/27/24 00:01 01/27/24 00:01 01/27/24 00:00 01/27/24 00:00 BiPAP 2 01/27/24 00:00 01/27/24 00:00 01/26/24 23:32 2 01/26/24 23:03 01/26/24 23:00 01/26/24 22:57 01/26/24 22:03 01/26/24 22:01 01/26/24 22:01 01/26/24 22:01 01/26/24 22:01 01/26/24 21:54 01/26/24 21:20 01/26/24 21:12 01/26/24 21:00 01/26/24 20:10 01/26/24 20:00 01/26/24 20:00 01/26/24 20:00 Nasal Cannula 2 01/26/24 20:00 2 Laboratory Results Abnormal lab results 01/26/24 01/26/24 01/26/24 Range/Units 09:20 11:20 17:08 WBC 11.59 H (4.8-10.8) K/ul RBC 2.20 L (4.20-5.40) M/uL Hgb 7.4 L (12.0-16.0) g/dl Hct 21.2 L (37.0-47.0) % RDW Std Deviation 51.4 H (36.4-46.3) fL RDW Coeff of Lorenzo 15.1 H (11.5-14.5) % Neut # (Auto) 8.75 H (1.40-6.50) K/uL [place] # (Auto) 0.80 H (0.11-0.59) K/uL PT (9.0-12.0) Seconds INR (0.9-1.1) Sodium 134 L (136-145) mmol/L Chloride 93 L (98-107) mmol/L Carbon Dioxide 38 H (21-32) mmol/L Creatinine 0.36 L (0.6-1.2) mg/dl BUN/Creatinine Ratio 55.6 H (10-20) Glucose 108 H (70-99(Fasting)) mg/dl POC Glucose 106 H (70-99) mg/dl Calcium 8.1 L (8.6-10.3) mg/dl Total Bilirubin (0.2-1.0) mg/dl Alkaline Phosphatase (34-104) U/L Total Protein (6.0-8.3) gm/dl Albumin (3.4-5.0) gm/dl Globulin (2.5-4.0) gm/dl Stl C. diff Tox B Gene Positive Cdiff Gene H (Neg) 01/27/24 01/27/24 Range/Units 04:23 04:40 WBC (4.8-10.8) K/ul RBC 2.79 L (4.20-5.40) M/uL Hgb 9.1 L (12.0-16.0) g/dl Hct 27.2 L (37.0-47.0) % RDW Std Deviation 53.7 H (36.4-46.3) fL RDW Coeff of Lorenzo 15.5 H (11.5-14.5) % Neut # (Auto) (1.40-6.50) K/uL [place] # (Auto) (0.11-0.59) K/uL PT 18.0 H (9.0-12.0) Seconds INR 1.7 H (0.9-1.1) Sodium 135 L (136-145) mmol/L Chloride 94 L (98-107) mmol/L Carbon Dioxide 37 H (21-32) mmol/L Creatinine 0.29 L (0.6-1.2) mg/dl BUN/Creatinine Ratio 58.6 H (10-20) Glucose 69 L (70-99(Fasting)) mg/dl POC Glucose (70-99) mg/dl Calcium 8.3 L (8.6-10.3) mg/dl Total Bilirubin 1.3 H (0.2-1.0) mg/dl Alkaline Phosphatase 119 H (34-104) U/L Total Protein 5.3 L (6.0-8.3) gm/dl Albumin 3.2 L (3.4-5.0) gm/dl Globulin 2.1 L (2.5-4.0) gm/dl Stl C. diff Tox B Gene (Neg) Resident Activity Tracking Resident Involvement: Resident Care Provided Care Provided: Adult Hospital Medicine (4) Anemia Anemia type: unspecified type Qualified Code(s): D64.9 - Anemia, unspecified
[2024-01-28 05:07] LABS: Eosinophils # (auto) 0.03 K/uL (0.00-0.50); Eosinophils % (auto) 0.4 %; Hemoglobin 7.3 g/dl (12.0-16.0); Immature Granulocytes # (auto) 0.01 K/uL (0.01-0.20); Immature Granulocytes % (auto) 0.1 %; Lymphocytes # (auto) 1.55 K/uL (1.20-3.40); Mean Corpuscular Hemoglobin 33.2 pg (25.0-34.0); Mean Corpuscular Hgb Conc 33.2 g/dL (32.0-36.0); Mean Platelet Volume 10.6 fL (9.4-12.4); Monocytes % (auto) 6.4 %; Neutrophils # (auto) 5.67 K/uL (1.40-6.50); Neutrophils % (auto) 73.1 %; Platelet Count 146 K/uL (130-400); RDW Coefficient of Variation 15.6 % (11.5-14.5); RDW Standard Deviation 54.6 fL (36.4-46.3); White Blood Count 7.76 K/ul (4.8-10.8)
[2024-01-28 05:27] LABS: Albumin Globulin Ratio 1.6 (0.9-2); Albumin Level 2.9 gm/dl (3.4-5.0); BUN Creatinine Ratio 41.5 (10-20); Calcium 8.1 mg/dl (8.6-10.3); Globulin 1.8 gm/dl (2.5-4.0); Magnesium 1.9 mg/dl (1.7-2.4); Phosphorus 2.9 mg/dl (2.5-4.9); Potassium 5.2 mmol/L (3.5-5.1); Total Protein 4.7 gm/dl (6.0-8.3)
[2024-01-28 05:37] LABS: INR 1.5 (0.9-1.1); Partial Thromboplastin Ratio 1.3; Partial Thromboplastin Time 34 Seconds (21-31); Prothrombin Time 15.4 Seconds (9.0-12.0)
[2024-01-28 05:50] LABS: Stomatocytes 1+; Target Cells 1+
--- NOTE | 2024-01-28 06:42 | Hospitalist Progress Note ---
Date of Service January 28, 2024 Assessment & Plan (1) Acute on chronic respiratory failure with hypoxia: Plan: Secondary to fluid overload causing pleural effusions, anasarca and ascites, likely secondary to protein calorie malnutrition with hypoalbuminemia - satting mid 90s on 2L/min O2 via NC - continue diuresis with Lasix and spironolactone with I&O monitoring - continue BiPAP nightly - duonebs as needed Per Dr. Miller, patient stable to transfer out of ICU - PT to evaluate and treat - palliative consult ordered, medicine team discussing goals of care with patient (2) Generalized weakness: Plan: chronic weakness, particularly in b/l LE - PT to evaluate and treat - encourage PO meals and fluids, tolerating regular diet - palliative consult ordered, medicine team can discuss with patient until palliative comes on Tuesday01/30/24 (3) Multifocal pneumonia: Plan: Cefepime 2 g IV every 12 hours - DuoNebs every 2 hours as needed - white count has resolved MRSA swab negative (4) Anemia: Plan: hemoglobin downtrending over last day: 9.1 -> 7.3 - CBC in AM - encourage PO meals and fluids, currently tolerating regular diet - being followed by nutrition (5) Pleural effusion: Plan: related to fluid overload state 2/2 chronic protein malabsorption - continue diuresis with Lasix and spironolactone with I&O monitoring - duonebs as needed (6) Elevated troponin: Plan: 19.8 -> 21.8 likely secondary to increased demand - EKG showing afib and old septal infarct from 2019 or earlier (7) Hypomagnesemia: Plan: resolved, 2.0 -> 1.9 - may hold repletion (8) Anasarca: Plan: likely related to fluid overload state 2/2 chronic protein malabsorption - continue Lasix and spironolactone for diuresis with I&O monitoring - consider IV albumin as pt has ptein malabsorption (9) Hypoalbuminemia due to protein-calorie malnutrition: Plan: chronic malabsorption - IV albumin given in ED - tolerating regular diet, nutrition following - consider IV albumin as pt has ptein malabsorption (10) Ascites: Plan: likely 2/2 chronic protein malabsorption in combination with scleroderma - continue Lasix and spironolactone with I&O monitoring - consider IV albumin as pt has ptein malabsorption (11) Scleroderma: Plan: chronic - continue mycophenolate mofetil 500mg q12 Plan Stable to be transferred out of ICU PT to evaluate and treat Palliative consult ordered, medicine team to cover starting 01/27/24 Admission and Anticipated Discharge Date Admission Date: January 26, 2024 Supervising Physician Co-Signing Physician Notes I personally examined the patient and verified rizzo points of history and exam, discussed case, and agree with decision making and plan documented by Dr. Alegre. Patient conversant and resting comfortably on exam. Discussed consideration of goals of care and code status, patient states she would like to have this conversation decision with her POA/sister present, likely Tuesday. She is open to a palliative care consultation. Patient is interested in consideration of a permanent port to be placed for lab drawls and administration of medications and albumin. I reviewed with patient that there are certain indications for port placement and I am not sure she met criteria at this time, also discussed that ports do increased risk of infections. Patient is working with nutrition to maintain adequate protein in diet. We reviewed the progressive weakness and deconditioning she is experiencing in addition to increased hospitalizations the past couple months. Subjective Patient seen and evaluated at bedside in ICU, patient was alert and fully oriented on encounter. States she was having some diarrhea and urine overnight, otherwise she was able to sleep a bit. This morning, she is feeling "okay" denying any pain, but still feels week. States she ate breakfast without issue. Expresses interest in getting an IV port so that she does not have to be stuck with so many needles given her veins are difficult to stick. Additionally feels an IV port would be necessary because in the outpatient setting she reports going sometimes 5 days without receiving any IV medication or blood draws. Denies recent fever, body aches, chills, sweats, dizziness, chest pain, numbness/tingling in extremities, pain in extremities. Review of Systems Review of Systems: per HPI Physical Exam Physical Exam: Constitutional: A&Ox4 (full name, , location, today's date), not appearing in acute distress HEENT: anicteric sclerae, EOM intact Cardiovascular: irregularly irregular rhythm, non-tachycardic; otherwise no m/r/g Respiratory: b/l inspiratory scattered crackles L>R, fair air entry b/l, no wheeze/rhonchi GI: abdomen soft, normo-hyperactive bowel sounds, diffusely tender to palpation Neuro: no facial droop, speech intact, CN II-XII grossly intact MSK: 5/5 strength in all extremities; diffuse swelling in extremities, shinier/tighter skin more appreciable in b/l LE, no tenderness with calf squeeze Results & Data Results & Data Vital Signs (Past 12 Hours) Vital Signs Pulse Resp BP Pulse Ox O2 Del Method O2 Flow Rate 01/28/24 03:39 80 24 97 2 01/27/24 22:29 79 27 H 99 2 01/27/24 21:18 85 22 100 01/27/24 21:01 191/52 H 01/27/24 21:01 191/52 H 01/27/24 20:57 90 25 H 84 L 01/27/24 20:00 101 H 29 H 151/92 H 99 01/27/24 20:00 Nasal Cannula 2 01/27/24 19:00 83 25 H 100 Laboratory Results Abnormal lab results 01/28/24 Range/Units 04:41 RBC 2.20 L (4.20-5.40) M/uL Hgb 7.3 L (12.0-16.0) g/dl Hct 22.0 L (37.0-47.0) % RDW Std Deviation 54.6 H (36.4-46.3) fL RDW Coeff of Lorenzo 15.6 H (11.5-14.5) % PT 15.4 H (9.0-12.0) Seconds INR 1.5 H (0.9-1.1) APTT 34 H (21-31) Seconds Potassium 5.2 H (3.5-5.1) mmol/L Chloride 94 L (98-107) mmol/L Carbon Dioxide 41 H* (21-32) mmol/L Anion Gap 1 L (3-11) Creatinine 0.41 L (0.6-1.2) mg/dl BUN/Creatinine Ratio 41.5 H (10-20) Calcium 8.1 L (8.6-10.3) mg/dl Total Protein 4.7 L (6.0-8.3) gm/dl Albumin 2.9 L (3.4-5.0) gm/dl Globulin 1.8 L (2.5-4.0) gm/dl Resident Activity Tracking Resident Involvement: Resident Care Provided Care Provided: Adult Hospital Medicine (4) Anemia Anemia type: unspecified type Qualified Code(s): D64.9 - Anemia, unspecified
--- NOTE | 2024-01-28 07:44 | Electrocardiogram Report ---
Test Reason : Blood Pressure : */* mmHG Vent. Rate : 84 BPM Atrial Rate : 84 BPM P-R Int : 144 ms QRS Dur : 78 ms QT Int : 372 ms P-R-T Axes : 63 55 91 degrees QTcB Int : 439 ms Poor data quality, interpretation may be adversely affected Atrial fibrillation Low voltage QRS Cannot rule out Anterior infarct (cited on or before 23-Feb-2019) Abnormal ECG When compared with ECG of 25-Jan-2024 22:40, Questionable change in initial forces of Anterior leads Confirmed by Power Bethea [id number] on 01/28/2024 7:44:05 AM Referred By: REFERRED SELF Confirmed By: Power Bethea
[2024-01-28] MEDS: RIVAROXABAN 20 MG TAB PO SCH (15:26)
--- NOTE | 2024-01-29 06:42 | Hospitalist Progress Note ---
Date of Service January 29, 2024 Assessment & Plan (1) Acute on chronic respiratory failure with hypoxia: Plan: Secondary to fluid overload causing pleural effusions, anasarca and ascites, likely secondary to protein calorie malnutrition with hypoalbuminemia - improving, satting high 90s on 2L/min O2 via NC - continue diuresis with Lasix and spironolactone with I&O monitoring - continue BiPAP nightly - duonebs as needed - palliative consult ordered, medicine team can discuss with patient until palliative comes on Tuesday01/30/24 (2) Generalized weakness: Plan: chronic weakness, particularly in b/l LE - PT has seen patient on 01/29/24, pt still non-ambulatory and they recommend continuing PT inpatient, potentially SNF rehab on discharge - encourage PO meals and fluids, tolerating regular diet - palliative consult ordered, medicine team can discuss with patient until palliative comes on Tuesday01/30/24 (3) Diarrhea due to malabsorption: Plan: 01/29/24 had 3 bouts of diarrhea overnight, nursing describes as nearly orange and particularly malodorous - likely 2/2 longstanding history of malabsorption, C diff gene positive, C diff toxin negative - imodium q6 prn ordered (4) Multifocal pneumonia: Plan: Cefepime 2 g IV every 12 hours - DuoNebs every 2 hours as needed - white count has resolved MRSA swab negative (5) Anemia: Plan: hemoglobin downtrending over last day: 7.3 -> 7.1 on 01/29/24 - H&H in afternoon 01/29/24 - had patient signs transfusion consent form - CBC in AM - encourage PO meals and fluids, currently tolerating regular diet - being followed by nutrition (6) Pleural effusion: Plan: related to fluid overload state 2/2 chronic protein malabsorption - continue diuresis with Lasix and spironolactone with I&O monitoring - duonebs as needed (7) Anasarca: Plan: likely related to fluid overload state 2/2 chronic protein malabsorption - continue Lasix and spironolactone for diuresis with I&O monitoring - consider IV albumin as pt has ptein malabsorption (8) Hypomagnesemia: Plan: steady, 2.0 -> 1.9 - may hold repletion (9) Elevated troponin: Plan: 19.8 -> 21.8 likely secondary to increased demand - EKG showing afib and old septal infarct from 2019 or earlier (10) Hypoalbuminemia due to protein-calorie malnutrition: Plan: chronic malabsorption - IV albumin given in ED - tolerating regular diet, nutrition following - consider IV albumin as pt has ptein malabsorption (11) Ascites: Plan: likely 2/2 chronic protein malabsorption in combination with scleroderma - continue Lasix and spironolactone with I&O monitoring - consider IV albumin as pt has ptein malabsorption (12) Scleroderma: Plan: chronic - continue mycophenolate mofetil 500mg q12 Plan Stable to be transferred out of ICU PT to evaluate and treat Palliative consult ordered, medicine team to cover starting 01/27/24 Admission and Anticipated Discharge Date Admission Date: January 26, 2024 Supervising Physician Co-Signing Physician Notes I personally examined the patient and verified rizzo points of history and exam, discussed case, and agree with decision making and plan documented by Dr. Alegre. Patient to be transfused 1 unit PRBC, no obvious signs of bleeding, will check hemoccult in setting of intermittent diarrhea, hold rivaroxaban, check H/H s/p transfusion. Patient anticipating palliative care discussion with her brother and sister early this upcoming week. We reviewed her code status and would like to discuss changing this with her family. We reviewed her worsening physical condition and increased hospitalizations over the past couple months. She underwent aggressive electrolyte replacement with diuretics in the ICU, unfortunately she has poor IV access. Anticipate more focused discussion with patient's family present to address her worsening physical state and goals of care. Subjective Patient seen and evaluated at bedside, patient was alert and fully oriented on encounter. Overnight pt was moved to regular telemetry floor, states she slept well. States she was having some diarrhea and urine overnight. Per nursing, stool was nearly orange in color and particularly malodorous. Pt positive for C diff gene but not toxin. She endorses that she is either very constipated or very diarrheal with a narrow range where she is regular. Interested in something to firm up stool as she is on the diarrhea end of the spectrum. Notes when she was changing clothes after diarrhea, she was having some shortness of breath, but that resolved shortly after. Currently satting in high 90s on 2L NC. This morning, she is feeling "okay" denying any pain, but still feels week. States she ate breakfast without issue. Patient conveys understanding that PT will see her to help improve her strength. Also endorses understanding that we will be having goals of care discussion this coming week. Denies recent fever, body aches, chills, sweats, dizziness, chest pain, numbness/tingling in extremities, pain in extremities. Review of Systems Review of Systems: per HPI Physical Exam Physical Exam: Constitutional: A&Ox4 (full name, , location, today's date), not appearing in acute distress HEENT: anicteric sclerae, EOM intact Cardiovascular: irregularly irregular rhythm, non-tachycardic; otherwise no m/r/g Respiratory: b/l inspiratory crackles L upper lung otherwise clear to auscultation, fair air entry b/l, no wheeze/rhonchi GI: abdomen soft, normo-hyperactive bowel sounds, diffusely tender to palpation Neuro: no facial droop, speech intact, CN II-XII grossly intact MSK: 5/5 strength in all extremities; diffuse swelling in extremities, shinier/tighter skin more appreciable in b/l LE, no tenderness with calf squeeze Results & Data Results & Data Vital Signs (Past 12 Hours) Vital Signs Temp Pulse Pulse Resp BP Pulse Ox O2 Del Method 01/29/24 03:22 36.3 C L 92 H 20 107/72 98 Nasal Cannula 01/29/24 02:31 75 12 99 01/28/24 23:17 36.3 C L 80 16 106/73 100 Nasal Cannula 01/28/24 23:12 82 30 H 100 01/28/24 22:41 79 01/28/24 20:27 36.5 C 96 H 20 128/83 99 Nasal Cannula 01/28/24 20:00 Nasal Cannula O2 Flow Rate 01/29/24 03:22 01/29/24 02:31 2 01/28/24 23:17 01/28/24 23:12 2 01/28/24 22:41 01/28/24 20:27 2 01/28/24 20:00 2 Laboratory Results Abnormal lab results 01/29/24 Range/Units 07:12 RBC 2.14 L (4.20-5.40) M/uL Hgb 7.1 L (12.0-16.0) g/dl Hct 21.8 L (37.0-47.0) % MCV 101.9 H (80.0-100.0) fL RDW Std Deviation 56.5 H (36.4-46.3) fL RDW Coeff of [place] 15.7 H (11.5-14.5) % APTT 38 H (21-31) Seconds Chloride 95 L (98-107) mmol/L Carbon Dioxide 41 H* (21-32) mmol/L Anion Gap 1 L (3-11) Creatinine 0.30 L (0.6-1.2) mg/dl BUN/Creatinine Ratio 60.0 H (10-20) Calcium 7.8 L (8.6-10.3) mg/dl Resident Activity Tracking Resident Involvement: Resident Care Provided Care Provided: Adult Hospital Medicine (5) Anemia Anemia type: unspecified type Qualified Code(s): D64.9 - Anemia, unspecified
[2024-01-29 07:54] LABS: Hematocrit (blood only) 21.8 % (37.0-47.0); Hemoglobin 7.1 g/dl (12.0-16.0); Mean Corpuscular Hemoglobin 33.2 pg (25.0-34.0); Mean Corpuscular Hgb Conc 32.6 g/dL (32.0-36.0); Mean Corpuscular Volume 101.9 fL (80.0-100.0); Mean Platelet Volume 10.6 fL (9.4-12.4); Platelet Count 142 K/uL (130-400); RDW Coefficient of Variation 15.7 % (11.5-14.5); RDW Standard Deviation 56.5 fL (36.4-46.3); Red Blood Count 2.14 M/uL (4.20-5.40); White Blood Count 7.12 K/ul (4.8-10.8)
[2024-01-29 08:16] LABS: Calcium 7.8 mg/dl (8.6-10.3); Creatinine Clr Calc Pharmacy 190.2 ml/min; Magnesium 1.9 mg/dl (1.7-2.4); Potassium 4.8 mmol/L (3.5-5.1)
[2024-01-29 08:34] LABS: Partial Thromboplastin Ratio 1.4; Partial Thromboplastin Time 38 Seconds (21-31)
[2024-01-29] MEDS: ALBUT/IPRATROP 3MG/0.5MG NEB 3 ML VIAL NEB PRN (14:20)
[2024-01-29 16:39] LABS: Hematocrit (blood only) 20.6 % (37.0-47.0)
[2024-01-29] MEDS ORDERED: SODIUM CHLORIDE 0.9% 50 ML IV PRN (17:26)
[2024-01-29] MEDS: ACETAMINOPHEN 325 MG TAB PO PRN (17:48)
[2024-01-29] MEDS: LOPERAMIDE HCL 2 MG CAP PO PRN (17:48)
[2024-01-29] MEDS: SODIUM CHLORIDE 0.9% 100 ML IV PRN (20:35)
[2024-01-29 23:59] LABS: Hematocrit (blood only) 21.3 % (37.0-47.0)
[2024-01-30 06:31] LABS: BUN Creatinine Ratio 65.7 (10-20); Calcium 7.7 mg/dl (8.6-10.3); Creatinine Clr Calc Pharmacy 160.3 ml/min; INR 2.1 (0.9-1.1); Partial Thromboplastin Ratio 1.6; Partial Thromboplastin Time 44 Seconds (21-31); Potassium 4.9 mmol/L (3.5-5.1); Prothrombin Time 21.7 Seconds (9.0-12.0)
--- NOTE | 2024-01-30 06:46 | Hospitalist Progress Note ---
Date of Service January 30, 2024 Assessment & Plan (1) Acute on chronic respiratory failure with hypoxia: Plan: Secondary to fluid overload causing pleural effusions, anasarca and ascites, likely secondary to protein calorie malnutrition with hypoalbuminemia - improving, satting high 90s on 2L/min O2 via NC - continue diuresis with Lasix and spironolactone with I&O monitoring - continue BiPAP nightly - duonebs as needed - discussed next steps of care with patient and her 3 siblings as described in HPI, in agreement with SNF if continues to improve overall - PT to evaluate and treat (2) Generalized weakness: Plan: chronic weakness, particularly in b/l LE - PT has seen patient on 01/29/24, pt still non-ambulatory and they recommend continuing PT inpatient, potentially SNF rehab on discharge - encourage PO meals and fluids, tolerating regular diet - discussion with patient and 3 siblings regarding next steps in pt's care, for now in agreement with SNF (3) Anemia: Plan: transfused 2 units: Hgb 6.6 -> 7.2 - hemoccult positive - CBC in AM - encourage PO meals and fluids, currently tolerating regular diet - being followed by nutrition (4) Diarrhea due to malabsorption: Plan: No significant diarrhea overnight into 01/30/24, took imodium day prior 01/29/24 had 3 bouts of diarrhea overnight, nursing describes as nearly orange and particularly malodorous - likely 2/2 longstanding history of malabsorption, C diff gene positive, C diff toxin negative - imodium q6 prn (5) Multifocal pneumonia: Plan: Cefepime 2 g IV every 12 hours - DuoNebs every 2 hours as needed - white count has resolved MRSA swab negative (6) Metabolic alkalosis: Plan: bicarb 41 - resume Diamox 250mg BID (7) Pleural effusion: Plan: related to fluid overload state 2/2 chronic protein malabsorption - continue diuresis with Lasix and spironolactone with I&O monitoring - duonebs as needed (8) Anasarca: Plan: likely related to fluid overload state 2/2 chronic protein malabsorption - continue Lasix and spironolactone for diuresis with I&O monitoring - consider IV albumin as pt has ptein malabsorption (9) Hypomagnesemia: Plan: steady, 2.0 -> 1.9 - may hold repletion (10) Elevated troponin: Plan: 19.8 -> 21.8 likely secondary to increased demand - EKG showing afib and old septal infarct from 2019 or earlier (11) Hypoalbuminemia due to protein-calorie malnutrition: Plan: chronic malabsorption - IV albumin given in ED - tolerating regular diet, nutrition following - consider IV albumin as pt has ptein malabsorption (12) Ascites: Plan: likely 2/2 chronic protein malabsorption in combination with scleroderma - continue Lasix and spironolactone with I&O monitoring - consider IV albumin as pt has ptein malabsorption (13) Scleroderma: Plan: chronic - continue mycophenolate mofetil 500mg q12 Plan Stable to be transferred out of ICU PT to evaluate and treat Palliative consult ordered, medicine team to cover starting 01/27/24 Admission and Anticipated Discharge Date Admission Date: January 26, 2024 Supervising Physician Co-Signing Physician Notes I personally examined the patient and verified all rizzo points of history and exam, discussed case, and agree with decision making with Dr Alegre Feeling about the same. Still having some diarrhea and a sore bottom. Otherwise trying to eat. Vitals noted, in general she is awake and alert pleasant fatigued no distress. HEENT normocephalic atraumatic mucous membranes moist. Breathing unlabored no accessory muscle use good effort. Skin without rashes pallor or icterus. Neuro without focal deficits. Abdomen soft mild diffuse tenderness. Severe protein calorie malnutrition with anasarca/weakness/deconditioningappears to be due to interstitial lung disease, scleroderma, probably chronic malabsorptioncontinue supportive care. Continue to encourage enteral intake as possible. Follow diarrhea. Quite concerning for overall prognosis. Probable pneumoniaon cefepimebreathing appears to be stable. Probably does not have urinary tract infectionwas likely asymptomatic bacteriuriabut this is a moot point given that she is also on cefepime for the probable pneumonia. Exceedingly mild myocardial demand ischemia due to above anemiano obvious hemorrhagesuspect chronic disease and iron deficiencytransfused due to hemoglobin less than 7. Appears to be asymptomatic. No overt bleeding. Give IV iron long-term prognosis concerning due to weakness/deconditioning/malnutrition Subjective Patient seen and evaluated at bedside, patient was alert and fully oriented on encounter. She endorses she is feeling better than she did last night, when she was transfused a unit of blood. This morning she had to be transfused again due to Hgb not improving. No obvious sites of bleeding noted. Hbg improved upon morning transfusion. States she did not have diarrhea overnight which she is happy about. Notes she had a more solid but still loose bowel movement around 10am today 01/30/24. States she ate breakfast without issue. Patient conveys understanding that PT will see her to help improve her strength. Pt's sister Jane and 2 brothers, Eduard and Davin, were present for discussion about next steps for patient. Patient not willing to change code status unless she becomes incapacitated, siblings in agreement. Patient and siblings in agreement with moving from [facility] living to a SNF for closer care. Denies recent fever, body aches, chills, sweats, dizziness, chest pain, numbness/tingling in extremities, pain in extremities. Review of Systems Review of Systems: per HPI Physical Exam Physical Exam: Constitutional: A&Ox4 (full name, , location, month) not appearing in acute distress HEENT: anicteric sclerae, EOM intact Cardiovascular: irregularly irregular rhythm, non-tachycardic; otherwise no m/r/g Respiratory: b/l inspiratory crackles L upper lung otherwise clear to auscultation, fair air entry b/l, no wheeze/rhonchi GI: abdomen soft, normo-hyperactive bowel sounds, diffusely tender to palpation Neuro: no facial droop, speech intact, CN II-XII grossly intact MSK: 5/5 strength in all extremities; diffuse swelling in extremities, shinier/tighter skin more appreciable in b/l LE, no tenderness with calf squeeze Results & Data Results & Data Vital Signs (Past 12 Hours) Vital Signs Temp Pulse Pulse Resp BP BP Pulse Ox 01/30/24 04:09 36.4 C L 92 H 20 104/69 100 01/30/24 02:16 92 H 22 97 01/29/24 23:25 79 01/29/24 22:10 36.4 C L 89 21 110/74 99 01/29/24 21:10 36.7 C 79 21 106/70 99 01/29/24 21:00 81 24 98 01/29/24 20:40 36.5 C 80 22 111/76 97 01/29/24 20:25 36.6 C 80 21 109/71 99 01/29/24 20:03 36.7 C 88 20 103/65 98 01/29/24 20:00 01/29/24 19:26 36.3 C L 83 20 97/65 L 100 O2 Del Method O2 Flow Rate 01/30/24 04:09 BiPAP 01/30/24 02:16 2 01/29/24 23:25 01/29/24 22:10 2 01/29/24 21:10 2 01/29/24 21:00 2 01/29/24 20:40 2 01/29/24 20:25 01/29/24 20:03 2 01/29/24 20:00 BiPAP 2 01/29/24 19:26 Nasal Cannula Laboratory Results Abnormal lab results 01/29/24 01/29/24 01/30/24 Range/Units 07:12 23:39 05:45 RBC 2.02 L (4.20-5.40) M/uL Hgb 7.0 L 6.6 L* (12.0-16.0) g/dl Hct 21.3 L 20.6 L* (37.0-47.0) % MCV 102.0 H (80.0-100.0) fL RDW Std Deviation 57.7 H (36.4-46.3) fL RDW Coeff of Lorenzo 15.8 H (11.5-14.5) % Plt Count 129 L (130-400) K/uL PT 21.7 H (9.0-12.0) Seconds INR 2.1 H (0.9-1.1) APTT 44 H (21-31) Seconds Chloride 95 L (98-107) mmol/L Carbon Dioxide 41 H* (21-32) mmol/L Anion Gap 2 L (3-11) Creatinine 0.35 L (0.6-1.2) mg/dl BUN/Creatinine Ratio 65.7 H (10-20) Calcium 7.7 L (8.6-10.3) mg/dl Stool Occult Bld Scrn (Negative) Crossmatch See Detail 01/30/24 01/30/24 Range/Units 13:12 15:12 RBC (4.20-5.40) M/uL Hgb 7.2 L (12.0-16.0) g/dl Hct 22.6 L (37.0-47.0) % MCV (80.0-100.0) fL RDW Std Deviation (36.4-46.3) fL RDW Coeff of Lorenzo (11.5-14.5) % Plt Count (130-400) K/uL PT (9.0-12.0) Seconds INR (0.9-1.1) APTT (21-31) Seconds Chloride (98-107) mmol/L Carbon Dioxide (21-32) mmol/L Anion Gap (3-11) Creatinine (0.6-1.2) mg/dl BUN/Creatinine Ratio (10-20) Calcium (8.6-10.3) mg/dl Stool Occult Bld Scrn Positive A (Negative) Crossmatch Resident Activity Tracking Resident Involvement: Resident Care Provided Care Provided: Adult Hospital Medicine (3) Anemia Anemia type: unspecified type Qualified Code(s): D64.9 - Anemia, unspecified
[2024-01-30 06:48] LABS: Hematocrit (blood only) 20.6 % (37.0-47.0); Hemoglobin 6.6 g/dl (12.0-16.0); Mean Corpuscular Hemoglobin 32.7 pg (25.0-34.0); Mean Platelet Volume 10.7 fL (9.4-12.4); Platelet Count 129 K/uL (130-400); RDW Coefficient of Variation 15.8 % (11.5-14.5); RDW Standard Deviation 57.7 fL (36.4-46.3); Red Blood Count 2.02 M/uL (4.20-5.40); White Blood Count 7.06 K/ul (4.8-10.8)
[2024-01-30] MEDS ORDERED: SODIUM CHLORIDE 0.9% 100 ML IV PRN (06:51)
[2024-01-30] MEDS ORDERED: SODIUM CHLORIDE 0.9% 50 ML IV PRN (06:51)
[2024-01-30] MEDS: PHYTONADIONE 5 MG TAB PO STA (09:10)
[2024-01-30 13:40] LABS: Hematocrit (blood only) 22.6 % (37.0-47.0); Hemoglobin 7.2 g/dl (12.0-16.0)
--- NOTE | 2024-01-30 16:04 | Palliative Care Consultation ---
Date of Consultation January 30, 2024 Assessment & Plan (1) Abdominal pain: per primary Abdominal location: generalized Qualified Code(s): R10.84 - Generalized abdominal pain (2) Acute UTI: per primary (3) Atrial fibrillation: rate controlled, asymptomatic. currently on AC per primary (4) Generalized weakness: (5) Acute on chronic respiratory failure with hypoxia: ILD- managed by [facility] now admitted to [facility] for acute hypoxic respiratory failure.- continue mycophenolate/mgmt per primary Plan 68 YOF presents to hospital for acute on chronic weakness and fatigue, multiple electroltye disturbances, anasarca. Initially admitted to ICU for electrolyte replacement and hypotension; now stabilized on PCU. Medical management per primary team. I met with pt and her sister Jane briefly. Pt shared that she has 3 brother and on sister and the are all very close knit and make all decisions together. Jane shared that she had scheduled for their brothers to be in hospital for family meeting to discuss goals of care at one pm today. She was not sure who the MD is they are meeting with, but wanted to all be together before any decisions are made. I let family know that I am committed to another family meeting at 1pm, But will be available for any further needs at anytime tomorrow. Discussed plan with the attending team, today they request time to discuss admission course and treatment options with pt and her siblings, and then determine further need for palliative team involvement. Later in day I received call from hospitalist resident, Alli Hdz who informed me that pt's goals have been firmly established for ongoing life prolonging therapies including full resuscitation. Pt has no further palliative care needs at this time as goals are established. Palliative care will sign off a this time, please reconsult for any further palliative care needs. History of Present Illness Reason for Consultation: Goals of Care Requesting Physician: Corbin Doherty DO Attending Physician: Corbin Doherty DO History of Present Illness This 68-year-old female with a past medical history including atrial fibrillation, interstitial lung disease 2 L oxygen requiring, GERD, scleroderma and SBO was BIBA from [facility] due to several days of shortness of breath, abdominal discomfort with intermittent nausea and vomiting. Primary Care Provider: Most recent admissions are from 11/13-11/17/2023, and 12/27-01/21. Allergies Allergy/AdvReac Type Severity Reaction Status Date / Time simvastatin [From Zocor] Allergy Intermediate "made me Verified 01/26/24 01:31 pass out" ibuprofen Allergy Mild stomach Verified 01/26/24 01:31 pain naproxen [From Aleve] Allergy Mild STOMACH Verified 01/26/24 01:31 PAIN oxycodone [From Percocet] Allergy Mild stomach Verified 01/26/24 01:31 pain clams AdvReac Gastrointestinal Verified 01/26/24 01:31 Upset lactose AdvReac Gastrointestinal Verified 01/26/24 01:31 Upset oyster extract AdvReac Gastrointestinal Verified 01/26/24 01:31 Upset scallops AdvReac Gastrointestinal Verified 01/26/24 01:31 Upset Home Medications Medication Instructions Recorded Confirmed Type hydroxychloroquine 200 mg tablet 400 mg PO QPM 02/23/19 01/26/24 History rivaroxaban 20 mg tablet (Xarelto) 20 mg PO QPM 02/23/19 01/26/24 History metoprolol succinate 100 mg 100 mg PO QPM 04/25/20 01/26/24 History tablet,extended release 24 hr Saccharomyces boulardii 250 mg 250 mg PO QAM 04/28/21 01/26/24 History capsule (Digest Probiotic (S.boulardii)) calcium carbonate 500 mg PO QAM 04/28/21 01/26/24 History [id number] 200 mcg-vit K 15 1 tab PO DAILY 04/28/21 01/26/24 History mcg-lycope 150 uxq-[id number]-uerr tablet (Ocuvite Eye Plus Multi) omeprazole 40 mg capsule,delayed 40 mg PO QAM 04/28/21 01/26/24 History release spironolactone 25 mg tablet 25 mg PO QAM 03/29/22 01/26/24 History cyanocobalamin (vitamin B-12) 500 500 mcg PO DAILY 05/28/22 01/26/24 History mcg tablet wifvok-pdoupkqr-dzuloym 1 cap PO TIDM 05/28/22 01/26/24 History 6,000-19,000-30,000 unit capsule,delayed rel (Creon) mycophenolate mofetil 500 mg tablet 500 mg PO Q12 05/28/22 01/26/24 History prednisolone acetate 1 % eye 1 drp OPL QPM 05/28/22 01/26/24 History drops,suspension simethicone 80 mg chewable tablet 80 mg PO QID PRN GAS OR FLATULENCE 05/28/22 01/26/24 History cholecalciferol (vitamin D3) 25 10,000 unit PO QAM 11/29/22 01/26/24 History mcg (1,000 unit) capsule (Vitamin D3) magnesium oxide 400 mg PO DAILY 06/16/23 01/26/24 History albuterol sulfate 90 mcg/actuation 1 puff inhalation Q6 PRN Wheezing 12/28/23 01/26/24 History aerosol inhaler ferrous sulfate 325 mg (65 mg 325 mg PO QAM 12/28/23 01/26/24 History iron) tablet (Iron (ferrous sulfate)) furosemide 40 mg tablet 40 mg PO QAM #30 tabs 01/02/24 01/26/24 Rx acetaminophen 650 mg 1,300 mg PO Q8H 01/26/24 01/26/24 History tablet,extended release (Arthritis Pain Relief (acetaminophen) ER) albuterol sulfate 2.5 mg/3 mL 2.5 mg inhalation Q6H 01/26/24 01/26/24 History (0.083 %) solution for nebulization cetirizine 10 mg tablet 10 mg PO DAILY 01/26/24 01/26/24 History docusate sodium 100 mg capsule 100 mg PO BID 01/26/24 01/26/24 History (Dulcolax Stool Softener (docusate)) fluticasone propionate 115 1 puff inhalation BID 01/26/24 01/26/24 History mcg-salmeterol 21 mcg/actuation HFA inhaler (Advair HFA) lactase 9,000 unit tablet (Lactase 9,000 unit PO QID PRN Lactose 01/26/24 01/26/24 History Fast Acting) Intolerance multivitamin (Daily-Paty tablet) 1 tab PO DAILY 01/26/24 01/26/24 History ondansetron 8 mg disintegrating 8 mg PO Q4 PRN N/V 01/26/24 01/26/24 History tablet tramadol 50 mg tablet 50 mg PO Q6 01/26/24 01/26/24 History triamcinolone acetonide 55 mcg 2 spray intranasal DAILY 01/26/24 01/26/24 History nasal spray aerosol (Nasacort) zinc oxide 20 % topical ointment 1 applic topical BID 01/26/24 01/26/24 History Patient History Medical History Acute on chronic respiratory failure with hypercapnia Acute respiratory failure with hypercapnia Acute hyponatremia Urinary tract infection Acute constipation Hyponatremia Constipation Macrocytic anemia Weakness Pallor Induration of periwound skin Pain of right scapula Hypokalemia Hypoxia Bronchitis due to human metapneumovirus (hMPV) Dyspnea on minimal exertion MONTES (dyspnea on exertion) Hypoxia Acute respiratory distress Acute bronchitis Regurgitation of food Encounter for pre-operative examination Acute upper respiratory infection Hypomagnesemia MONTES (dyspnea on exertion) Nausea Decreased appetite Hypomagnesemia Decubitus skin ulcer Hypertension Scleroderma History of COVID-fall Poor intravenous access "took 2 hours to get IV in for last procedure, finally needed the [place] machine to get in place, had to be put in by anesthesia" Environmental and seasonal allergies History of cardioversion x several Chronic back pain Chronic diarrhea Gastroparesis On anticoagulant therapy xarelto daily Surgical History No significant past surgical history S/P debridement (01/28/23) Abdominal Wall Wound Debridement, Skin, Subcutaneous, Fascia 15x8 - Rasheed Ward MD, FACS > pt still has at present, follows with wound clinic History of benign breast biopsy History of dilatation and curettage History of total right knee replacement (TKR) History of colonoscopy History of esophagogastroduodenoscopy (EGD) Status post fine needle biopsy on thyroid--all benign History of tooth extraction full upper History of bilateral cataract extraction History of cardiac radiofrequency ablation (~10/2020) 2020 @ [facility] [place] History of hand surgery finger surgery > right History of hernia repair History of cholecystectomy History of surgery Mutiple GI procedures for blocked bowel. 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 Facialist Required: No Beliefs That Will Affect Care: None marital status: Single Current Living Situation: Personal Care Facility Current Living Situation Comment: Pt was recently [facility]arged from [facility] to [facility] and then to [facility] current occupational status: retired Other Information That Helps Us Care for You: No Feels Safe at Home: Yes Safety Concerns: Feels Safe At This Time Diet: other Diet Comment: gastroparesis caffeine: Yes Assistive Devices: BiPap, Oxygen - Continuous, Walker and Wheelchair Review of Systems Review of Systems: Per HPI above Physical Exam Physical Exam: Constitutional: A&Ox4 (full name, , location, today's date), not appearing in acute distress HEENT: anicteric sclerae, EOM intact Cardiovascular: irregularly irregular rhythm, rate WNL; Respiratory: b/l inspiratory crackles @ GERMÁN otherwise CTA but diminished BS GI: abdomen soft, normoactive bowel sounds, diffusely tender to palpation Neuro: speech normal rate/rythm and content, no focal deficits, generalized weakness MSK: diffuse swelling in extremities, generalized weakness Results & Data Vital Signs (Past 12 Hours) Vital Signs Temp Pulse Pulse Resp BP BP Pulse Ox 01/30/24 15:06 36.8 C 82 17 108/70 99 01/30/24 12:59 36.5 C 82 107/78 01/30/24 12:08 36.5 C 82 18 107/68 01/30/24 11:08 36.5 C 86 18 122/73 99 01/30/24 10:08 36.5 C 89 122/73 01/30/24 09:38 36.4 C L 89 107/47 L 01/30/24 09:23 36.5 C 84 118/75 01/30/24 09:09 36.4 C L 101 H 123/75 01/30/24 09:07 36.4 C L 101 H 123/75 01/30/24 08:00 01/30/24 08:00 75 01/30/24 07:09 36.8 C 77 16 110/69 99 01/30/24 04:09 36.4 C L 92 H 20 104/69 100 O2 Del Method O2 Flow Rate 01/30/24 15:06 Nasal Cannula 01/30/24 12:59 01/30/24 12:08 01/30/24 11:08 2 01/30/24 10:08 01/30/24 09:38 01/30/24 09:23 01/30/24 09:09 01/30/24 09:07 01/30/24 08:00 Nasal Cannula 2 01/30/24 08:00 01/30/24 07:09 BiPAP 01/30/24 04:09 BiPAP Laboratory Results Abnormal lab results 01/29/24 01/29/24 01/29/24 Range/Units 07:12 16:09 23:39 RBC (4.20-5.40) M/uL Hgb 7.0 L 7.0 L (12.0-16.0) g/dl Hct 20.6 L* 21.3 L (37.0-47.0) % MCV (80.0-100.0) fL RDW Std Deviation (36.4-46.3) fL RDW Coeff of Lorenzo (11.5-14.5) % Plt Count (130-400) K/uL PT (9.0-12.0) Seconds INR (0.9-1.1) APTT (21-31) Seconds Chloride (98-107) mmol/L Carbon Dioxide (21-32) mmol/L Anion Gap (3-11) Creatinine (0.6-1.2) mg/dl BUN/Creatinine Ratio (10-20) Calcium (8.6-10.3) mg/dl Stool Occult Bld Scrn (Negative) Crossmatch See Detail 01/30/24 01/30/24 01/30/24 Range/Units 05:45 13:12 15:12 RBC 2.02 L (4.20-5.40) M/uL Hgb 6.6 L* 7.2 L (12.0-16.0) g/dl Hct 20.6 L* 22.6 L (37.0-47.0) % MCV 102.0 H (80.0-100.0) fL RDW Std Deviation 57.7 H (36.4-46.3) fL RDW Coeff of Lorenzo 15.8 H (11.5-14.5) % Plt Count 129 L (130-400) K/uL PT 21.7 H (9.0-12.0) Seconds INR 2.1 H (0.9-1.1) APTT 44 H (21-31) Seconds Chloride 95 L (98-107) mmol/L Carbon Dioxide 41 H* (21-32) mmol/L Anion Gap 2 L (3-11) Creatinine 0.35 L (0.6-1.2) mg/dl BUN/Creatinine Ratio 65.7 H (10-20) Calcium 7.7 L (8.6-10.3) mg/dl Stool Occult Bld Scrn Positive A (Negative) Crossmatch Diagnostic Findings Chest X-Ray 01/25/24 22:35 EXAM: XR chest 1V portable CLINICAL HISTORY: TECHNIQUE: An X-ray image of the chest is obtained in AP poetable projection. COMPARISON: 12/31/2023. FINDINGS: The patient is rotated for a chest radiograph. Low lung volume could be due to poor inspiratory effort. Pulmonary Parenchyma: There is a suggestion of an interval decrease in the bilateral hilar vascular congestion and perihilar vascular markings. Probable minimal bilateral pleural effusion has also resolved with relatively sharp costophrenic angles on the current radiograph. No evidence of consolidation, collapse, or focal opacities. No pulmonary nodules are identified. Heart and Mediastinum: Borderline cardiomegaly. Mediastinal hilar shadows are normal. Bony Thorax: Degenerative changes are noted. The bony thorax appears intact without fractures or deformities. Soft Tissues: Soft tissues overlying the chest wall are unremarkable. IMPRESSION: 1. Stable borderline cardiomegaly. 2. Interval decrease in the bilateral hilar vascular congestion along with reduced perihilar vascular markings. 3. Probable minimal bilateral pleural effusion has also resolved with relatively sharp costophrenic angles on the current radiograph. Electronically signed by Alexis Loredo 01-26-2024 12:17 AM Abdomen/Pelvis CT 01/25/24 22:43 EXAM: CT abd pelvis IV con only CLINICAL HISTORY: weak, abd pain, n/v, hx sbo 92ml of 320 TECHNIQUE: Contiguous axial images were obtained from the level of the diaphragm to the pubic symphysis with intravenous contrast . Coronal and sagittal reconstructions were likewise performed and indicated to increase the sensitivity for detecting clinically relevant pathology. If IV contrast material had not been administered, the likelihood of detecting abnormalities relevant to the patient's condition would have been substantially decreased. CT scan was performed according to ALARA (as low as reasonable achievable). 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 The liver is normal in size with diffuse fatty infiltration.No focal liver lesions are seen. There is no intra or extrahepatic biliary ductal dilatation. Hepatic vasculature is patent. Post cholecystectomy status. The spleen, pancreas, and adrenal glands are unremarkable. The kidneys are normal in size and attenuation. Simple cortical right renal mid pole cyst asuring 2 x 1.8 cm.There is no hydronephrosis or perinephric fat stranding. No renal calculi or renal masses are identified. The ureters are normal in caliber and no ureteral calculi are seen. The bladder is normal in contour. Pelvic viscera are unremarkable. Gross ascites with diffuse mesentric edema. No focal or diffuse bowel wall thickening or evidence of bowel obstruction is identified. No inflamed appendix is visualized in the right lower quadrant . Abdominal and pelvic vasculature is patent. No adenopathy is seen. Moderate diffuse abdominal wall edema. No aggressive appearing osseous lesions are identified.Severe degnerative changes in the vertebra. IMPRESSION: 1. Visualized lung bases demonstrates moderate bilateral pleural efusion with underlying atelectasis.Multiple patchy consolidations and ground glass opacifications in the visualized right middle,left upper and bilateral lower lobes along with atelectasis.Correlate clinically. 2. Gross ascites with diffuse mesentric edema. 3. Diffuse fatty infiltration of liver. 4. Moderate diffuse abdominal wall edema. 5. On comparison with prior CT, there is significant interval increase in bilateral pleural effusion and ascites. Electronically signed by Javid Jha 01-26-2024 01:50 AM Medications Administered Current Inpatient Medications Acetaminophen (Acetaminophen 325 Mg Tab) 650 mg PO Q4H PRN PRN Reason: Pain Stop: 02/28/24 17:22 Last Admin: 01/30/24 11:18 Dose: 650 mg Albuterol (Albut/Ipratrop 3mg/0.5mg Neb 3 Ml Vial) 3 ml NEB Q2H PRN; Protocol PRN Reason: dyspnea Stop: 02/25/24 02:24 Last Admin: 01/29/24 14:20 Dose: 3 ml Calcium Carbonate (Calcium Carbonate 1,250 Mg/5 Ml Udc) 1,250 mg PO BID SANJAY Stop: 02/25/24 08:59 Last Admin: 01/30/24 09:12 Dose: 1,250 mg Furosemide (Furosemide 40 Mg Tab) 40 mg PO QAM SANJAY Stop: 02/25/24 08:59 Last Admin: 01/30/24 09:11 Dose: 40 mg Famotidine (Pepcid 20mg Iv Push) 20 mg in 5 mls @ 2.5 mls/min IV Q12H SANJAY Stop: 02/25/24 08:59 Last Admin: 01/30/24 09:47 Dose: 2.5 mls/min Cefepime HCl (Maxipime 2000mg) 2,000 mg in 20 mls @ 5 mls/min IV Q8H SANJAY; Protocol Stop: 02/02/24 05:59 Last Admin: 01/30/24 14:32 Dose: 5 mls/min Loperamide HCl (Loperamide Hcl 2 Mg Cap) 2 mg PO Q6H PRN PRN Reason: Diarrhea Stop: 02/28/24 14:41 Last Admin: 01/29/24 17:48 Dose: 2 mg Magnesium Oxide (Magnesium Oxide 400 Mg Tab) 400 mg PO BID SANJAY Stop: 02/25/24 08:59 Last Admin: 01/30/24 09:11 Dose: 400 mg Metoclopramide HCl (Metoclopramide Hcl Inj 5 Mg/Ml 2 Ml Vial) 10 mg IV Q6H PRN PRN Reason: Nausea Stop: 02/25/24 04:26 Multivitamins (Multivitamin Tab) 1 tab PO DAILY SANJAY Stop: 02/25/24 08:59 Last Admin: 01/30/24 09:11 Dose: 1 tab Mycophenolate Mofetil (Mycophenolate Mofetil 250 Mg Cap) 500 mg PO Q12H SANJAY Stop: 02/25/24 07:59 Last Admin: 01/30/24 09:11 Dose: 500 mg Ondansetron HCl (Ondansetron Inj 2 Mg/Ml 2 Ml Vial) 4 mg IV Q6H PRN PRN Reason: NAUSEA/VOMITING Stop: 02/25/24 03:33 Last Admin: 01/27/24 20:37 Dose: 4 mg Polyethylene Glycol (Polyethylene (Miralax) 17 Gm Pack) 17 gm PO DAILY PRN PRN Reason: Constipation Stop: 02/25/24 08:42 Last Admin: 01/26/24 09:15 Dose: 17 gm Rivaroxaban (Rivaroxaban 20 Mg Tab) 20 mg PO QDD [facility] Stop: 02/27/24 16:29 Last Admin: 01/29/24 16:26 Dose: 20 mg Senna/Docusate Sodium (Docusate Sodium/Senna 50/8.6mg Tab) 1 tab PO QAM [facility] Stop: 02/25/24 08:59 Last Admin: 01/30/24 14:33 Dose: Not Given Spironolactone (Spironolactone 25 Mg Tab) 25 mg PO QAM [facility] Stop: 02/25/24 08:59 Last Admin: 01/30/24 09:11 Dose: 25 mg PG Care Time/CCT Total # of Minutes Spent Total Time Spent with Patient: Total time spent is greater than 50% in coordination of care (as documented) at patient's floor/unit and/or counseling patient: [place] [address] IN/OBS CONSULT LVL 3,45M Patient Type New Medical Decision Making Moderate Complexity Diagnoses Abdominal pain R10.84 Abdominal location: generalized Acute UTI N39.0 Atrial fibrillation I48.91 Generalized weakness R53.1 Acute on chronic respiratory failure with hypoxia J96.21
--- NOTE | 2024-01-30 18:44 | Billing Data ---
Date of Service January 30, 2024 Coding Level of Care Code 25406 SUB INP/OBS CARE
[2024-01-30] MEDS: IRON SUCROSE 200 MG in SODIUM CHLORIDE 0.9% 100 ML IV ONE (19:34)
[2024-01-30] MEDS: acetaZOLAMIDE 250 MG TAB PO SCH (20:50)
[2024-01-31 06:41] LABS: Hematocrit (blood only) 26.6 % (37.0-47.0); Hemoglobin 8.7 g/dl (12.0-16.0); Mean Corpuscular Hemoglobin 33.7 pg (25.0-34.0); Mean Corpuscular Hgb Conc 32.7 g/dL (32.0-36.0); Mean Corpuscular Volume 103.1 fL (80.0-100.0); Mean Platelet Volume 10.8 fL (9.4-12.4); Platelet Count 163 K/uL (130-400); RDW Coefficient of Variation 16.1 % (11.5-14.5); RDW Standard Deviation 58.4 fL (36.4-46.3); Red Blood Count 2.58 M/uL (4.20-5.40); White Blood Count 9.89 K/ul (4.8-10.8)
--- NOTE | 2024-01-31 06:42 | Hospitalist Progress Note ---
Date of Service January 31, 2024 Assessment & Plan (1) Generalized weakness: Plan: chronic weakness, particularly in b/l LE but has been more apparent in all extremities over last day - PT has seen patient today 01/31/24, still non-ambulatory and unable to follow commands, making nonsensical responses to questions and commands; PT now discontinued - continue to encourage PO meals and fluids with assistance change of code status discussed with sister Lara (POA) and two brothers: changed to DNR/DNI based on low likelihood that patient will make a meaningful recovery (2) Hypotension: Plan: likely due to hypovolemic status 2/2 poor PO intake and difficult IV access, less likely septic due to WBS <10 and absence of other SIRS criteria - ordered 1L NS bolus - continue monitoring vital signs for hemodynamic instability change of code status discussed with sister Lara (POA) and two brothers: changed to DNR/DNI based on low likelihood that patient will make a meaningful recovery (3) Acute on chronic respiratory failure with hypoxia: Plan: Secondary to fluid overload causing pleural effusions, anasarca and ascites, likely secondary to protein calorie malnutrition with hypoalbuminemia - improving, satting low-mid 90s on room air - continue diuresis with Lasix and spironolactone with I&O monitoring - continue BiPAP nightly - duonebs as needed (4) Ecchymosis: Plan: acute, extensive b/l posterior upper arm ecchymoses + around IV sites - apparent tenderness to palpation, non-tense, no mason fluid or masses palpated - watch for evolution of addition of above symptoms (5) Anemia: Plan: 8.7 on 01/31/24 AM - hemoccult positive - CBC in AM - encourage PO meals and fluids with assistance - being followed by nutrition (6) Diarrhea due to malabsorption: Plan: diarrhea overnight into 01/31/24 - likely 2/2 longstanding history of malabsorption and short gut - imodium q6 prn (7) Multifocal pneumonia: Plan: Cefepime 2 g IV every 12 hours - DuoNebs every 2 hours as needed - white count has resolved MRSA swab negative (8) Metabolic alkalosis: Plan: bicarb downtrending 41 -> 39 - continue Diamox 250mg BID (9) Pleural effusion: Plan: related to fluid overload state 2/2 chronic protein malabsorption - continue diuresis with Lasix and spironolactone with I&O monitoring - duonebs as needed (10) Anasarca: Plan: likely related to fluid overload state 2/2 chronic protein malabsorption - continue Lasix and spironolactone for diuresis with I&O monitoring - consider IV albumin as pt has ptein malabsorption (11) Hypoalbuminemia due to protein-calorie malnutrition: Plan: chronic malabsorption likely 2/2 scleroderma and short gut - IV albumin given in ED - consider IV albumin (12) Ascites: Plan: likely 2/2 chronic protein malabsorption in combination with scleroderma - continue Lasix and spironolactone with I&O monitoring - consider IV albumin as pt has ptein malabsorption (13) Scleroderma: Plan: chronic - continue mycophenolate mofetil 500mg q12 Plan Sister (pt's POA) Jane had discussion their 2 brothers with resident and attending regarding changing code status and next steps for patient. In agreement with DNR/DNI given patient's clinical decline and low likelihood of meaningful recovery. [facility], which family agree would be best for her. Admission and Anticipated Discharge Date Admission Date: January 26, 2024 Supervising Physician Co-Signing Physician Notes I personally examined the patient and verified all rizzo points of history and exam, discussed case, and agree with decision making with Dr Alegre More confused today. No meaningful HPI review of systems obtainable, but patient does not appear to be in any distress, she is awake and alert and does not really voice any complaints. Family including her POA are present at the bedsideupdated to the best of my ability and answered all questions to their satisfaction. After lengthy discussion, all were in agreement that a hospice approach was most appropriate given her acute on chronic comorbidities. Vitals noted, in general she is confused but appears to be in no pain or distress. HEENT normocephalic atraumatic mucous membranes moist. Breathing unlabored no accessory muscle use good effort. Skin without rashes pallor or icterus. Neuro without focal deficits. Anasarca noted. Severe protein calorie malnutrition with anasarca/weakness/deconditioningappears to be due to interstitial lung disease, scleroderma, probably chronic malabsorption With blood pressures dropping again, and no appearance of sepsis/blood loss/other acute factorsI do worry that she is third spacing to where she is not really maintaining fluid in her vasculature. Given her overall decline and acute on chronic failure to thrive, family felt it most appropriate for her to be hospice. While she was fairly delirious she seemed to be in agreement with this as wellbut more importantly her family and her POA were all in agreement that hospice was the right approach. Probable pneumoniaon cefepimebreathing appears to be stable. Probably does not have urinary tract infectionwas likely asymptomatic bacteriuriabut this is a moot point given that she is also on cefepime for the probable pneumonia. This seems to be improving. No fevers no leukocytosisdoubt any recurrent sepsis Exceedingly mild myocardial demand ischemia due to above anemiano obvious hemorrhagesuspect chronic disease and iron deficiencytransfused due to hemoglobin less than 7. Appears to be asymptomatic. No overt bleeding. Gave IV iron long-term prognosis concerning due to weakness/deconditioning/malnutritionand after this was all discussed in detail with the familythey arrived at the decision that hospice was most appropriate Subjective Patient seen and evaluated at bedside, patient was alert on encounter, stating she slept well. Also endorses she had some stool incontinence, like "gravy." Aside from some pain on her bottom, denies any particular pain or discomfort upon asking. Intermittently eating breakfast during encounter. Upon revisiting in early afternoon, patient had become lethargic and was replying nonsensically to most questions, unable to gauge orientation due to replying "okay" or "yes please" to orientation questions. Additionally not following commands when assessing movement, after saying "okay" or "yes" to asking if she could move a certain body part. When asked if she was hungry, pt replied "yes" but unclear if question was understood. Pt's sister (POA) Jane was present in afternoon encounter, feels now is an acceptable time to more realistically consider palliative vs hospice. Will also discuss changing pt's code status with their two brothers. Denies recent fever, body aches, chills, sweats, dizziness, chest pain, numbness/tingling in extremities, pain in extremities. Review of Systems Review of Systems: per HPI Physical Exam Physical Exam: Constitutional: Alert but not oriented, HEENT: anicteric sclerae, EOM intact Cardiovascular: irregularly irregular rhythm, non-tachycardic; otherwise no m/r/g Respiratory: b/l inspiratory crackles L upper lung otherwise clear to auscultation, fair air entry b/l, no wheeze/rhonchi GI: abdomen soft, normo-hyperactive bowel sounds, diffusely tender to palpation Neuro: no facial droop, speech intact, CN II-XII grossly intact MSK: 5/5 strength in all extremities; diffuse swelling in extremities, shinier/tighter skin more appreciable in b/l LE, no tenderness with calf squeeze - UE: extensive ecchymoses b/l upper arm s mainly posterior aspect, non-tense and no discrete masses or fluid palpated, mild-moderate tenderness to palpation Results & Data Results & Data Vital Signs (Past 12 Hours) Vital Signs Temp Pulse Pulse Resp BP Pulse Ox O2 Del Method 01/31/24 02:46 91 H 25 H 97 01/31/24 02:29 36.5 C 90 20 100/53 L 99 BiPAP 01/30/24 22:45 36.5 C 94 H 18 105/61 99 BiPAP 01/30/24 22:01 94 H 01/30/24 22:01 78 25 H 98 01/30/24 21:58 Nasal Cannula 01/30/24 19:10 36.6 C 83 16 112/70 100 Nasal Cannula O2 Flow Rate 01/31/24 02:46 2 01/31/24 02:29 01/30/24 22:45 01/30/24 22:01 01/30/24 22:01 2 01/30/24 21:58 2 01/30/24 19:10 Laboratory Results Abnormal lab results 01/30/24 01/30/24 01/31/24 Range/Units 13:12 15:12 06:03 RBC 2.58 L (4.20-5.40) M/uL Hgb 7.2 L 8.7 L (12.0-16.0) g/dl Hct 22.6 L 26.6 L (37.0-47.0) % MCV 103.1 H (80.0-100.0) fL RDW Std Deviation 58.4 H (36.4-46.3) fL RDW Coeff of Lorenzo 16.1 H (11.5-14.5) % PT 18.9 H (9.0-12.0) Seconds INR 1.8 H (0.9-1.1) Chloride 94 L (98-107) mmol/L Carbon Dioxide 39 H (21-32) mmol/L BUN 28 H (6-23) mg/dl Creatinine 0.44 L (0.6-1.2) mg/dl BUN/Creatinine Ratio 63.6 H (10-20) Calcium 8.1 L (8.6-10.3) mg/dl Stool Occult Bld Scrn Positive A (Negative) Resident Activity Tracking Resident Involvement: Resident Care Provided Care Provided: Adult Hospital Medicine (5) Anemia Anemia type: unspecified type Qualified Code(s): D64.9 - Anemia, unspecified
[2024-01-31 06:59] LABS: BUN Creatinine Ratio 63.6 (10-20); Calcium 8.1 mg/dl (8.6-10.3); Creatinine Clr Calc Pharmacy 127.6 ml/min
[2024-01-31 07:02] LABS: INR 1.8 (0.9-1.1); Prothrombin Time 18.9 Seconds (9.0-12.0)
[2024-01-31] MEDS: SODIUM CHLORIDE 0.9% 1,000 ML IV ONE ×2 (13:58→18:22)
--- NOTE | 2024-01-31 18:40 | Billing Data ---
Date of Service January 31, 2024 Coding Level of Care Code 61691 SUB INP/OBS CARE
--- NOTE | 2024-02-01 06:40 | Hospitalist Progress Note ---
Date of Service February 01, 2024 Assessment & Plan (1) Generalized weakness: Plan: chronic weakness, particularly in b/l LE but has been more apparent in all extremities over last day - PT has seen patient today 01/31/24, still non-ambulatory and unable to follow commands, making nonsensical responses to questions and commands; PT now discontinued - continue to encourage PO meals and fluids with assistance change of code status discussed with sister Lara (POA) and two brothers: changed to DNR/DNI based on low likelihood that patient will make a meaningful recovery (2) Hypotension: Plan: likely due to hypovolemic status 2/2 poor PO intake and difficult IV access, less likely septic due to WBS <10 and absence of other SIRS criteria - ordered 1L NS bolus - continue monitoring vital signs for hemodynamic instability change of code status discussed with sister Lara (POA) and two brothers: changed to DNR/DNI based on low likelihood that patient will make a meaningful recovery (3) Acute on chronic respiratory failure with hypoxia: Plan: Secondary to fluid overload causing pleural effusions, anasarca and ascites, likely secondary to protein calorie malnutrition with hypoalbuminemia - improving, satting low-mid 90s on room air - continue diuresis with Lasix and spironolactone with I&O monitoring - continue BiPAP nightly - duonebs as needed (4) Ecchymosis: Plan: acute, extensive b/l posterior upper arm ecchymoses + around IV sites - apparent tenderness to palpation, non-tense, no mason fluid or masses palpated - watch for evolution of addition of above symptoms (5) Anemia: Plan: 8.7 on 01/31/24 AM - hemoccult positive - CBC in AM - encourage PO meals and fluids with assistance - being followed by nutrition (6) Diarrhea due to malabsorption: Plan: diarrhea overnight into 01/31/24 - likely 2/2 longstanding history of malabsorption and short gut - imodium q6 prn (7) Multifocal pneumonia: Plan: Cefepime 2 g IV every 12 hours - DuoNebs every 2 hours as needed - white count has resolved MRSA swab negative (8) Metabolic alkalosis: Plan: bicarb downtrending 41 -> 39 - continue Diamox 250mg BID (9) Pleural effusion: Plan: related to fluid overload state 2/2 chronic protein malabsorption - continue diuresis with Lasix and spironolactone with I&O monitoring - duonebs as needed (10) Anasarca: Plan: likely related to fluid overload state 2/2 chronic protein malabsorption - continue Lasix and spironolactone for diuresis with I&O monitoring - consider IV albumin as pt has ptein malabsorption (11) Hypoalbuminemia due to protein-calorie malnutrition: Plan: chronic malabsorption likely 2/2 scleroderma and short gut - IV albumin given in ED - consider IV albumin (12) Ascites: Plan: likely 2/2 chronic protein malabsorption in combination with scleroderma - continue Lasix and spironolactone with I&O monitoring - consider IV albumin as pt has ptein malabsorption (13) Scleroderma: Plan: chronic - continue mycophenolate mofetil 500mg q12 Plan Sister (pt's DIAMOND) Jane had discussion their 2 brothers with resident and attending regarding changing code status and next steps for patient. In agreement with DNR/DNI given patient's clinical decline and low likelihood of meaningful recovery. [facility] willing to accept patient on hospice, which family agree would be best for her. Admission and Anticipated Discharge Date Admission Date: January 26, 2024 Subjective To be updated: [[Patient seen and evaluated at bedside, patient was alert on encounter, stating she slept well. Also endorses she had some stool incontinence, like "gravy." Aside from some pain on her bottom, denies any particular pain or discomfort upon asking. Intermittently eating breakfast during encounter. Upon revisiting in early afternoon, patient had become lethargic and was replying nonsensically to most questions, unable to gauge orientation due to replying "okay" or "yes please" to orientation questions. Additionally not following commands when assessing movement, after saying "okay" or "yes" to asking if she could move a certain body part. When asked if she was hungry, pt replied "yes" but unclear if question was understood. Pt's sister (DIAMOND) Jane was present in afternoon encounter, feels now is an acceptable time to more realistically consider palliative vs hospice. Will also discuss changing pt's code status with their two brothers. Denies recent fever, body aches, chills, sweats, dizziness, chest pain, numbness/tingling in extremities, pain in extremities.]] Review of Systems Review of Systems: per HPI Physical Exam Physical Exam: To be updated: [[Constitutional: Alert but not oriented, HEENT: anicteric sclerae, EOM intact Cardiovascular: irregularly irregular rhythm, non-tachycardic; otherwise no m/r/g Respiratory: b/l inspiratory crackles L upper lung otherwise clear to auscultation, fair air entry b/l, no wheeze/rhonchi GI: abdomen soft, normo-hyperactive bowel sounds, diffusely tender to palpation Neuro: no facial droop, speech intact, CN II-XII grossly intact MSK: 5/5 strength in all extremities; diffuse swelling in extremities, shinier/tighter skin more appreciable in b/l LE, no tenderness with calf squeeze - UE: extensive ecchymoses b/l upper arm s mainly posterior aspect, non-tense and no discrete masses or fluid palpated, mild-moderate tenderness to palpation]] Results & Data Results & Data Vital Signs (Past 12 Hours) Vital Signs Temp Pulse Pulse Resp BP Pulse Ox O2 Del Method 02/01/24 03:31 100/63 02/01/24 02:38 36.5 C 80 18 85/62 L 99 BiPAP 02/01/24 02:24 86 27 H 98 01/31/24 23:06 95 H 24 98 01/31/24 22:54 82 01/31/24 22:46 36.6 C 82 18 117/73 98 BiPAP 01/31/24 21:30 Room Air 01/31/24 19:27 36.5 C 87 18 132/63 94 Room Air O2 Flow Rate 02/01/24 03:31 02/01/24 02:38 02/01/24 02:24 2 01/31/24 23:06 2 01/31/24 22:54 01/31/24 22:46 01/31/24 21:30 01/31/24 19:27 (5) Anemia Anemia type: unspecified type Qualified Code(s): D64.9 - Anemia, unspecified
[2024-02-01 07:22] VITALS: O2SAT 100
[2024-02-01 08:19] LABS: Hematocrit (blood only) 25.5 % (37.0-47.0); Hemoglobin 8.4 g/dl (12.0-16.0); Mean Corpuscular Hemoglobin 33.6 pg (25.0-34.0); Mean Corpuscular Hgb Conc 32.9 g/dL (32.0-36.0); Mean Platelet Volume 10.9 fL (9.4-12.4); Platelet Count 139 K/uL (130-400); RDW Coefficient of Variation 16.5 % (11.5-14.5); RDW Standard Deviation 59.5 fL (36.4-46.3); White Blood Count 11.23 K/ul (4.8-10.8)
[2024-02-01 08:34] LABS: BUN Creatinine Ratio 73.8 (10-20); Creatinine Clr Calc Pharmacy 133.6 ml/min; Potassium 4.1 mmol/L (3.5-5.1)
[2024-02-01 11:07] VITALS: TEMP 98.2
[2024-02-01 16:10] VITALS: BP 77/33; PULSE 83; RESP 19
--- NOTE | 2024-02-01 17:28 | Discharge Summary ---
Date of Service February 01, 2024 Admission HPI Per Admitting Provider The patient is a 68-year-old female with a past medical history including atrial fibrillation, interstitial lung disease 2 L oxygen requiring, GERD, scleroderma and SBO. Most recent admissions are from 11/13-11/17/2023, and 12/27-01/21. The patient initially was accompanied by her sister, but noted the patient had not been walking much since her hospitalization. The patient's primary symptom during my assessment was that of shortness of breath. Admission Exam Per Admitting Provider The patient is lethargic, but responds to questions. normocephalic and atraumatic, lying in bed and in no acute distress. HEENT--PERRL, EOMI, mucous membranes and oropharynx dry. Neck--supple. No JVD. No bruits. Thyroid normal, trachea midline, no tomeka opathy. Heart--normal S1 and S2. No murmurs, rubs or gallops. Lungs--crackles at the bases bilaterally., no respiratory distress, no accessory muscle use. Abdomen--normal bowel sounds and soft. Nontender. Mildly distended Extremities--1+ bilateral pretibial pitting edema, left greater than right. Dermatologic--normal skin turgor, normal color, no abnormal lymph nodes, no rash. Neurologic--cranial nerves II through XII grossly intact. Rheumatologic--normal range of motion. Psychiatric-lethargic but responds to questioning. Principal Diagnosis weakness 2/2 severe malnutrition Discharge Exam Constitutional: Alert but not oriented, not in apparent distress HEENT: anicteric sclerae, EOM intact Cardiovascular: irregularly irregular rhythm, non-tachycardic; otherwise no m/r/g Respiratory: b/l inspiratory crackles L upper lung otherwise clear to auscultation, fair air entry b/l, no wheeze/rhonchi GI: abdomen soft, normo-hyperactive bowel sounds, diffusely tender to palpation Neuro: no facial droop, speech intact, CN II-XII grossly intact MSK: unable to gauge extremity strength at this time; diffuse swelling in extremities, shinier/tighter skin more appreciable in b/l LE, no tenderness with calf squeeze - UE: extensive ecchymoses b/l upper arms mainly posterior aspect, non-tense and no discrete masses or fluid palpated, mild-moderate tenderness to palpation Discharge Data Allergies Allergy/AdvReac Type Severity Reaction Status Date / Time simvastatin [From Zocor] Allergy Intermediate "made me Verified 01/26/24 01:31 pass out" ibuprofen Allergy Mild stomach Verified 01/26/24 01:31 pain naproxen [From Aleve] Allergy Mild STOMACH Verified 01/26/24 01:31 PAIN oxycodone [From Percocet] Allergy Mild stomach Verified 01/26/24 01:31 pain clams AdvReac Gastrointestinal Verified 01/26/24 01:31 Upset lactose AdvReac Gastrointestinal Verified 01/26/24 01:31 Upset oyster extract AdvReac Gastrointestinal Verified 01/26/24 01:31 Upset scallops AdvReac Gastrointestinal Verified 01/26/24 01:31 Upset Consultations 01/26/24 00:58 ED Decision to Admit Stat 01/26/24 03:34 Consult Electrical Technician Instructor Routine 01/26/24 08:34 Consult Palliative Care Routine Ordered Studies 01/25/24 22:43 CT abd pelvis IV con only Stat Hospital Course (1) Generalized weakness: chronic weakness, particularly in b/l LE but has been more apparent in all extremities over last day - PT has seen patient today 01/31/24, still non-ambulatory and unable to follow commands, making nonsensical responses to questions and commands; PT now discontinued - continue to encourage PO meals and fluids with assistance change of code status discussed with sister Lara (POA) and two brothers: changed to DNR/DNI based on low likelihood that patient will make a meaningful recovery (2) Hypotension: likely due to hypovolemic status 2/2 poor PO intake and difficult IV access, less likely septic due to WBS <10 and absence of other SIRS criteria - ordered 1L NS bolus - continue monitoring vital signs for hemodynamic instability change of code status discussed with sister Lara (POA) and two brothers: changed to DNR/DNI based on low likelihood that patient will make a meaningful recovery (3) Acute on chronic respiratory failure with hypoxia: Secondary to fluid overload causing pleural effusions, anasarca and ascites, likely secondary to protein calorie malnutrition with hypoalbuminemia - improving, satting low-mid 90s on room air - continue diuresis with Lasix and spironolactone with I&O monitoring - continue BiPAP nightly - duonebs as needed (4) Ecchymosis: acute, extensive b/l posterior upper arm ecchymoses + around IV sites - apparent tenderness to palpation, non-tense, no mason fluid or masses palpated - watch for evolution of addition of above symptoms (5) Anemia: 8.7 on 01/31/24 AM - hemoccult positive - CBC in AM - encourage PO meals and fluids with assistance - being followed by nutrition (6) Diarrhea due to malabsorption: diarrhea overnight into 01/31/24 - likely 2/2 longstanding history of malabsorption and short gut - imodium q6 prn (7) Multifocal pneumonia: Cefepime 2 g IV every 12 hours - DuoNebs every 2 hours as needed - white count has resolved MRSA swab negative (8) Metabolic alkalosis: bicarb downtrending 41 -> 39 - continue Diamox 250mg BID (9) Pleural effusion: related to fluid overload state 2/2 chronic protein malabsorption - continue diuresis with Lasix and spironolactone with I&O monitoring - duonebs as needed (10) Anasarca: likely related to fluid overload state 2/2 chronic protein malabsorption - continue Lasix and spironolactone for diuresis with I&O monitoring - consider IV albumin as pt has ptein malabsorption (11) Hypoalbuminemia due to protein-calorie malnutrition: chronic malabsorption likely 2/2 scleroderma and short gut - IV albumin given in ED - consider IV albumin (12) Ascites: likely 2/2 chronic protein malabsorption in combination with scleroderma - continue Lasix and spironolactone with I&O monitoring - consider IV albumin as pt has ptein malabsorption (13) Scleroderma: chronic - continue mycophenolate mofetil 500mg q12 Plan Sister (pt's POA) Jane had discussion their 2 brothers with resident and attending regarding changing code status and next steps for patient. In agreement with DNR/DNI given patient's clinical decline and low likelihood of meaningful recovery. [place] [facility] willing to accept patient on hospice, which family agree would be best for her. Total Time Total Time Spent Total Time Spent (In Minutes): <30 Discharge Plan Discharge Items Patient Disposition: Hospice - Home Reason For Visit: ACUTE RESP FAILURE,ANASARCA,PLEURAL EFFUSION Discharge Diagnosis: weakness, acute resp failure, pneumonia, anasarca Activity: Per Instructions section Non-emergency contact: Primary Care Provider Call non-emergency contact if: your symptoms worsen and your pain is not controlled Follow-up/Referrals: Marcia Clemente MD [Primary Care Provider] - Diet: Regular Addtl Attending Provider Instructions: You were seen and treated at [facility] for progressing weakness and shortness of breath. Imaging showed pneumonia (lung infection) in addition to your interstitial lung disease, so we started you on IV antibiotics. You were found to be hypotensive so we treated you with IV fluids and vasopressors in the ICU. Your oxygen requirement decreased and blood pressure normalized, so you were moved to the regular telemetry floor (24hr heart monitoring). You seemed to be improving clinically, but unfortunately, likely due to the longstanding malabsorption contributing to your diarrhea and significant weakness, you have started to clinically decline. You were given 2 blood transfusions and two liters of IV fluids over the last 3 days, but your blood pressure continues to be low. Thus, due to low likelihood of a meaningful recovery, we have discussed with your family (sister/POA Jane and brothers Davin and Will) regarding your code status and placement upon discharge. Your code was changed to DNR/DNI, and home hospice has been approved at your current residence, [facility]. As the plan after discharge involves hospice and comfort measures, it is reasonable to either continue or discontinue your home medications. Since you have had low BP, it is reasonable to not take the Lasix or spironolactone as these would further decrease BP by fluid loss, but you can weigh your/family preference of having low BP (if you continue taking these) versus having more swelling (if you choose to not take these). Pending Studies at Discharge: No Stand-Alone Forms: My [facility] Medications and DC Order Prescriptions: Continued cholecalciferol (vitamin D3) [Vitamin D3] 25 mcg (1,000 unit) capsule 10,000 unit PO QAM Rx Instructions: 10,000 UNITS AT 0800 spironolactone 25 mg tablet 25 mg PO QAM Rx Instructions: 0800 Xarelto 20 mg Tablet 20 mg PO QPM Rx Instructions: 1700 hydroxychloroquine 200 mg tablet 400 mg PO QPM Rx Instructions: 2000 metoprolol succinate 100 mg tablet extended release 24 hr 100 mg PO QPM Rx Instructions: 1999 omeprazole 40 mg capsule,delayed release(DR/EC) 40 mg PO QAM Rx Instructions: 0800 calcium carbonate 500 mg calcium (1,250 mg) tablet 500 mg PO QAM Rx Instructions: 0800 Saccharomyces boulardii [Digest Probiotic (S.boulardii)] 250 mg capsule 250 mg PO QAM Rx Instructions: swallow whole 0800 Ocuvite Eye Plus Multi 200-15-150 mcg tablet 1 tab PO DAILY Rx Instructions: 0800 Creon 6,000-19,000 -30,000 unit capsule,delayed release(DR/EC) 1 cap PO TIDM Rx Instructions: 0800,1200,1700 mycophenolate mofetil 500 mg tablet 500 mg PO Q12 Rx Instructions: 08,1999 prednisolone acetate 1 % drops,suspension 1 drp OPL QPM Rx Instructions: 1999 cyanocobalamin (vitamin B-12) 500 mcg Tablet 500 mcg PO DAILY Rx Instructions: 0800 simethicone 80 mg Tablet,Chewable 80 mg PO QID PRN (Reason: GAS OR FLATULENCE) magnesium oxide 400 mg magnesium tablet 400 mg PO DAILY Rx Instructions: 0800 ferrous sulfate [Iron (ferrous sulfate)] 325 mg (65 mg iron) Tablet 325 mg PO QAM Rx Instructions: 0800 albuterol sulfate 90 mcg/actuation Hfa Aerosol Inhaler 1 puff INHALATION Q6 PRN (Reason: Wheezing) furosemide 40 mg Tablet 40 mg PO QAM Qty: 30 0RF Rx Instructions: 0800 multivitamin [Daily-Paty] Tablet 1 tab PO DAILY Rx Instructions: 0800 albuterol sulfate 2.5 mg /3 mL (0.083 %) Solution For Nebulization 2.5 mg INHALATION Q6H Rx Instructions: DAILY AT 0000,0600,1200,1800 cetirizine 10 mg Tablet 10 mg PO DAILY Rx Instructions: 0800 docusate sodium [Dulcolax Stool Softener (dss)] 100 mg Capsule 100 mg PO BID Rx Instructions: 08,1999 acetaminophen [Arthritis Pain Relief (acetam)] 650 mg Tablet Extended Release 1,300 mg PO Q8H Rx Instructions: 2 TABLET EVERY 8 HOURS FOR 14 DAYS ORDERED WRITTEN 01/17/24 fluticasone propion-salmeterol [Advair HFA] 115-21 mcg/actuation HFA aerosol inhaler 1 puff INHALATION BID Rx Instructions: 0800,2000 ondansetron 8 mg tablet,disintegrating 8 mg PO Q4 PRN (Reason: N/V) triamcinolone acetonide [Nasacort] 55 mcg Aerosol,[place] 2 spray INTRANASAL DAILY Rx Instructions: administer into each nostril 0800 tramadol 50 mg tablet 50 mg PO Q6 Rx Instructions: 000,0600,1200,1800 zinc oxide 20 % Ointment 1 applic TOPICAL BID Rx Instructions: APPLY TO BUTTOCKS AND SACRAL AREA AT 0600,1600 lactase [Lactase Fast Acting] 9,000 unit Tablet 9,000 unit PO QID PRN (Reason: Lactose Intolerance) Rx Instructions: administer with first bite of dairy food Discharge Orders: Discharge Order (Routine); Ordered 02/01/24 Ordered By: Alli Centeno/Other Patient Handouts: Preventing Pneumonia, Preventing Pressure Sores, AFib Admission Data Admit Date/Time: 01/26/24 02:44 Attending Provider: Corbin Doherty Admit Provider: Emiliano Maher Primary Care Provider: Marcia Clemente Other Providers: Emiliano Maher; Joana Jean Baptiste; Lora Roger; [facility]; [facility] Other Interventions: Discharge Summary Assessment (RN) Last Done: 02/01/24 15:41 Supervising Physician Co-Signing Physician Notes I personally examined the patient and verified all rizzo points of history and exam, discussed case, and agree with decision making with Dr Alegre confused again, for [facility] hospice today. while confused, she is pleasant and offers no complaints, mostly says thank you. Vitals noted, in general she is confused but appears to be in no pain or distress. HEENT normocephalic atraumatic mucous membranes moist. Breathing unlabored no accessory muscle use good effort. Skin without rashes pallor or icterus. Neuro without focal deficits. Anasarca noted. Severe protein calorie malnutrition with anasarca /weakness/deconditioningappears to be due to interstitial lung disease, scleroderma, probably chronic malabsorption With blood pressures dropping again, and no appearance of sepsis/blood loss/other acute factorsI do worry that she is third spacing to where she is not really maintaining fluid in her vasculature. Given her overall decline and acute on chronic failure to thrive, family felt it most appropriate for her to be hospice. While she was fairly delirious she seemed to be in agreement with this as wellbut more importantly her family and her POA were all in agreement that hospice was the right approach (discussion 01/30, dc 01/31). Probable pneumoniatreated with cefepimebreathing appears to be stable. Probably does not appear to have urinary tract infectionwas likely asymptomatic bacteriuriabut this is a moot point given that she is also on cefepime for the probable pneumonia. This seems to be improving. No fevers no leukocytosisdoubt any recurrent sepsis Exceedingly mild myocardial demand ischemia due to above anemiano obvious hemorrhagesuspect chronic disease and iron deficiencytransfused due to hemoglobin less than 7. now palliative goals/hospice long-term prognosis concerning due to weakness/deconditioning/malnutritionand after this was all discussed in detail with the familythey arrived at the decision that hospice was most appropriate - discharge to [facility] on hospice today Resident Activity Tracking Resident Involvement: Resident Care Provided Care Provided: Adult Hospital Medicine
--- NOTE | 2024-02-01 17:59 | Billing Data ---
Date of Service February 01, 2024 Coding Level of Care Code 74726 IN/OBS DISCH 30 MIN/LESS
== END 2024-02-01 16:45 | disposition hospice, home (50) | DRG 640 ==
LOC: ED 22:05 → 1E 01-26 02:44 → SUATTDRO 01-26 02:44 → 1E 01-26 03:18 → 2S 01-28 08:38